=== PATIENT | female | born 1995 | race Caucasian/White ===

== ENCOUNTER → 2025-09-07 | Outpatient (CLI) | payer BC, SELFPAY ==
[2025-09-11 10:08] LABS: Pistachio Nut 11.40 kU/L (Class IV)
== END | disposition home or self-care (01) ==
PROVIDERS: PCP Clinical Nurse Specialist Adult Health
DX: T78.40XA Allergy, unspecified, initial encounter (principal)
CPT/HCPCS: 36415; 86003

== ENCOUNTER → 2025-09-18 | Outpatient (CLI) | payer BC, SELFPAY ==
--- OUTSIDE RECORDS SUMMARY | 2025-09-18 08:44 | XMS RPT_ITS | CCD ---
Author Organization [facility] Clini[facility] Care Team Providers Care Wound Care Coordinator Name Role Phone Dio SECTIONAL BELT MOLD ASSEMBLER.BOOM MASTER, Wilson Primary Care Provider [phone] WILSON WHARTON A Attending Unavailable REKHA WINSLOW Attending Unavailable ERIK BAINS Consulting Unavailable Dio SECTIONAL BELT MOLD ASSEMBLER.BRIT, Wilson Primary Care Provider [phone] Dio SECTIONAL BELT MOLD ASSEMBLER.BOOM MASTER, Wilson Primary Care Provider [phone] Roxy Mendes CGC Unavailable Unavailable Haury SECTIONAL BELT MOLD ASSEMBLER.Milind PEREA Unavailable Dio SECTIONAL BELT MOLD ASSEMBLER.BOOM MASTER, Wilson Primary Care Provider [phone] RODOLFO ASHLEY Referring Unavailable RODOLFO ASHLEY Attending Unavailable Dio SECTIONAL BELT MOLD ASSEMBLER.BRIT, Wilson Primary Care Provider [phone] DIO, WILOSN Referring Unavailable DIO, WILSON Primary Care Unavailable DIO, WILSON Primary Care Unavailable LYALL-DUC, SHELLI Attending Unavailable DIO, WILSON Primary Care Unavailable LYALL-DUC, SHELLI Attending Unavailable DIO, WILSON Primary Care Unavailable DIO, WILSON Referring Unavailable DIO, WILSON Primary Care Unavailable DIO, WILSON Attending Unavailable DIO, WILSON Primary Care Unavailable DIO, WILSON Attending Unavailable DIO, WILSON Primary Care Unavailable DIO, WILSON Attending Unavailable DIO, WILSON Primary Care Unavailable DIO, WILSON Primary Care Unavailable DIO, WILSON Attending Unavailable DIO, WILSON Primary Care Unavailable DIO, WILSON Attending Unavailable SELF Referring Unavailable TYRA CLAROS Attending Unavailable DIO, WILSON Primary Care Unavailable TRICIA GARCIA Referring Unavailable DIO, WILSON Referring Unavailable TRICIA GARCIA Attending Unavailable DIO, WILSON Primary Care Unavailable NASIM, VILMA Referring Unavailable DIO, WILSON Primary Care Unavailable NASIM, VILMA Referring Unavailable DIO, WILSON Primary Care Unavailable SOPHIE, EBONY Referring Unavailable DIO, WILSON Primary Care Unavailable RADHA TRICIA Referring Unavailable DIO, WILSON Primary Care Unavailable DIO, WILSON Referring Unavailable DIO, WILSON Primary Care Unavailable GROMOVSKY, CODIE R Referring Unavailable DIO, WILSON Primary Care Unavailable GROMOVSKY, CODIE R Referring Unavailable DIO, WILSON Primary Care Unavailable SELF Referring Unavailable DIO, WILSON Primary Care Unavailable PETR MANDUJANO Attending Unavailable IRA MAY Attending Unavailable DIO, WILSON Primary Care Unavailable NIKOLAS CARBAJAL Attending Unavailable DIO, WILSON Primary Care Unavailable NASIM, VILMA Attending Unavailable DIO, WILSON Primary Care Unavailable SOPHIE, EBONY Referring Unavailable DIO, WILSON Primary Care Unavailable NASIM, VILMA Referring Unavailable DIO, WILSON Primary Care Unavailable BECHTERKAYA Attending Unavailable DIO, WILSON Primary Care Unavailable SOPHIE, EBONY Attending Unavailable DIO, WILSON Primary Care Unavailable GROMOVSKY, CODIE Referring Unavailable DIO, WILSON Primary Care Unavailable DOWNING, ALLISON Attending Unavailable DIO, WILSON Primary Care Unavailable NASIM, VILMA Attending Unavailable DIO, WILSON Primary Care Unavailable DOWNING, ALLISON Attending Unavailable DIO, WILSON Primary Care Unavailable DIO, WILSON Primary Care Unavailable SOPHIE, EBONY Attending Unavailable DIO, WILSON Primary Care Unavailable BECHTERKAYA Attending Unavailable DIO, WILSON Primary Care Unavailable NASIM, VILMA Attending Unavailable DIO, WILSON Primary Care Unavailable SOPHIE, EBONY Admitting Unavailable SOPHIE, EBONY Attending Unavailable SOPHIE, EBONY Referring Unavailable DIO, WILSON Primary Care Unavailable SOPHIE, EBONY Consulting Unavailable CHRISTINA BRAMBILA Attending Unavailable DIO, WILSON Referring Unavailable DIO, WILSON Primary Care Unavailable SOPHIE, EBONY Attending Unavailable DIO, WILSON Primary Care Unavailable BECHTER, KAYA Attending Unavailable DIO, WILSON Primary Care Unavailable NASIM, VILMA Attending Unavailable DIO, WILSON Primary Care Unavailable Allergies Allergy Classification Reported Allergen(s) Allergy Type Date of Onset Reaction(s) Facility (20 sources) Lisinopril; Translations: [LISINOPRIL] Drug Allergy 01-20-2022 Intolerance [facility] Work Phone: (20 sources) Adhesive Tape; Translations: [ADHESIVE TAPE (ROSINS)] Allergy to substance 08-14-2024 Rash [facility] Medications Current Medications Medication Drug Class(es) Dates Sig (Normalized) Sig (Original) acetaminophen 500 mg oral tablet (1 source) Start: 06-05-2025 End: 06-12-2025 take 40-44.9 tablets by mouth every six hours acetaminophen (TYLENOL) 500 mg tablet Indications: Class 3 severe obesity with serious comorbidity and body mass index (BMI) of 40.0 to 44.9 in adult, unspecified obesity type (HCC) Take 2 tablets by mouth every 6 hours for 7 days. TO START AFTER SURGERY 56 tablet 06/05/2025 06/12/2025 Active 24 hr desvenlafaxine succinate 25 mg extended release oral tablet (20 sources) Serotonin and Norepinephrine Reuptake Inhibitor Start: 03-26-2025 End: 04-25-2025 take 1 tablet by mouth once daily desvenlafaxine ER (PRISTIQ) 25 mg 24 hr tablet Take 1 tablet by mouth once daily. Combine with Lexapro x 30 days then D.C 30 tablet 03/26/2025 Active Start: 03-14-2024 End: 03-26-2025 take 1 tablet by mouth once daily desvenlafaxine ER (PRISTIQ) 100 mg 24 hr tablet Indications: ROBERT (generalized anxiety disorder) , Moderate episode of recurrent major depressive disorder (HCC) Take 1 tablet by mouth once daily. 90 tablet 1 09/08/2024 03/26/2025 Discontinued Start: 02-19-2024 End: 03-14-2024 take 1 tablet by mouth once daily desvenlafaxine ER (PRISTIQ) 50 mg 24 hr tablet Indications: ROBERT (generalized anxiety disorder) , Moderate episode of recurrent major depressive disorder (HCC) Take 1 tablet by mouth once daily. 30 tablet 2 02/19/2024 03/14/2024 Discontinued Start: 10-23-2023 End: 02-15-2024 take 1 tablet by mouth once daily desvenlafaxine ER (PRISTIQ) 50 mg 24 hr tablet Indications: ROBERT (generalized anxiety disorder) , Moderate episode of recurrent major depressive disorder (HCC) Take 1 tablet by mouth once daily. 30 tablet 2 10/23/2023 02/15/2024 Discontinued Start: 11-20-2022 End: 01-22-2023 take 1 tablet by mouth once daily desvenlafaxine ER (PRISTIQ) 100 mg 24 hr tablet Indications: ROBERT (generalized anxiety disorder) , Moderate episode of recurrent major depressive disorder (HCC) Take 1 tablet by mouth once daily. 90 tablet 2 01/22/2023 Active Comment on above: Take 1 tablet by rene th once daily. escitalopram 20 mg oral tablet (9 sources) Serotonin Reuptake Inhibitor Start: End: take 1 tablet by mouth once daily escitalopram oxalate (LEXAPRO) 20 mg tablet Take 1 tablet by mouth once daily. 90 tablet 03/26/2025 06/24/2025 Active famotidine 40 mg oral tablet (20 sources) Histamine-2 Receptor Antagonist Start: take 1 tablet by mouth once daily famotidine (PEPCID) 40 mg tablet Indications: Chronic gastritis without bleeding, unspecified gastritis type Take 1 tablet by mouth once daily. 90 tablet 2 11/28/2024 Active iv contrast (will be provided with radiology test) (1 source) Start: End: inject 1 dose intravenously once iv contrast (will be provided with radiology test) Indications: Dizzy , Other fatigue , Seizure disorder (HCC) , Migraine without aura, not intractable, with status migrainosus MRI Brain Inject, intravenously, once for 1 dose.No IV access, insert saline lock prior to beginning of sedation, infusion, injection of imaging exam.Discontinue saline lock post exam. If Pt. has a central line or IVAD, may access for administration according to line specific nursing protocol.Once exam is complete flush line and de-access according to line specific nursing protocol in the MR contrast administration guidelines link 1 Each 07/11/2024 07/12/2024 Active lisinopril 5 mg oral tablet (4 sources) Angiotensin Converting Enzyme Inhibitor Start: End: take 1 tablet by mouth once daily lisinopril (ZESTRIL, PRINIVIL) 5 mg tablet Indications: Hypertension, essential Take 1 tablet by mouth once daily. 30 tablet 1 01/12/2022 01/20/2022 Discontinued Comment on above: Take 1 tablet by rene th once daily. losartan potassium 25 mg oral tablet (20 sources) Angiotensin 2 Receptor Ravi Start: End: take 1 tablet by mouth once daily losartan (COZAAR) 25 mg tablet Indications: Hypertension, essential Take 1 tablet by mouth once daily. 90 tablet 1 06/16/2024 11/28/2024 Discontinued Start: 07-26-2022 End: 11-05-2023 take 1 tablet by mouth once daily losartan (COZAAR) 25 mg tablet Indications: Hypertension, essential Take 1 tablet by mouth once daily. 90 tablet 2 01/22/2023 11/05/2023 Discontinued (Discontinued by Patient) Start: 02-21-2022 End: 06-16-2022 take 1 tablet by mouth once daily losartan (COZAAR) 25 mg tablet Indications: Hypertension, essential Take 1 tablet by mouth once daily. 30 tablet 1 05/17/2022 Active Start: 01-20-2022 End: 02-19-2022 take 1 tablet by mouth once daily losartan (COZAAR) 25 mg tablet Indications: Hypertension, essential Take 1 tablet by mouth once daily. 30 tablet 0 01/20/2022 02/19/2022 Active Comment on above: Take 1 tablet by rene th once daily. metFORMIN hydrochloride 500 mg oral tablet (20 sources) Biguanide Start: End: take 1 tablet by mouth twice daily at mealtime metFORMIN (GLUCOPHAGE) 500 mg tablet Indications: Hypertension, essential , IFG (impaired fasting glucose) Take 1 tablet by mouth two times a day with meals. 60 tablet 2 03/04/2025 Active modafinil 200 mg oral tablet (20 sources) Sympathomimetic-li ke Agent Start: End: take 1 tablet by mouth once daily modafinil (PROVIGIL) 200 mg tablet Indications: Excessive daytime sleepiness , Sleep-disordered breathing Take 1 tablet by mouth once daily for 180 days. 30 tablet 5 02/27/2025 08/26/2025 Active Start: 01-30-2023 take 1 tablet by rene th once daily modafinil (PROVIGIL) 200 mg tablet Indications: Excessive daytime sleepiness , Narcolepsy without cataplexy Take 1 tablet by mouth once daily for 30 days. 30 tablet 0 01/30/2023 Active Start: 01-23-2023 End: 02-22-2023 take 1 tablet by mouth once daily modafinil (PROVIGIL) 100 mg tablet Indications: Excessive daytime sleepiness , Narcolepsy without cataplexy Take 1 tablet by mouth once daily for 30 days. 30 tablet 0 01/23/2023 02/22/2023 Active Comment on above: Take 1 tablet by [facility] once daily for 30 days. ondansetron 4 mg oral tablet (1 source) Serotonin-3 Receptor Antagonist Start: take 1 tablet by mouth every eight hours as needed for nausea ondansetron (ZOFRAN) 4 mg tablet Indications: Class 3 severe obesity with serious comorbidity and body mass index (BMI) of 40.0 to 44.9 in adult, unspecified obesity type (HCC) Take 1 tablet by mouth every 8 hours as needed for nausea/vomiting for up to 15 doses. TO START AFTER SURGERY. 15 tablet 06/05/2025 Active pantoprazole 40 mg delayed release oral tablet (1 source) Proton Pump Inhibitor Start: End: take 40-44.9 tablets by mouth once daily pantoprazole DR (PROTONIX) 40 mg tablet Indications: Class 3 severe obesity with serious comorbidity and body mass index (BMI) of 40.0 to 44.9 in adult, unspecified obesity type (HCC) Take 1 tablet by mouth once daily. TO START AFTER SURGERY. Take every day for 6 months after surgery. 180 tablet 06/05/2025 12/02/2025 Active predniSONE 20 mg oral tablet (19 sources) Start: predniSONE (DELTASONE) 20 mg tablet Indications: Hives Take three tablets daily for three days, then two tablets daily for three days, then one tablets daily for three days. 18 tablet 03/20/2025 Active Start: 02-13-2022 End: 07-07-2022 predniSONE (DELTASONE) 20 mg tablet Indications: Contact dermatitis due to adhesives, unspecified contact dermatitis type 1 tablet three times a day for 3 days, then 2 times a day for 3 days, the one daily for 3 days. Take with food. 18 tablet 0 02/13/2022 07/07/2022 Discontinued Comment on above: 1 tablet three times a day for 3 days, then 2 times a day for 3 days, the one daily for 3 days. Take with food. 24 hr propranolol hydrochloride 160 mg extended release oral capsule (20 sources) beta-Adrenergic Ravi Start: take 1 capsule by mouth once daily propranolol ER (INDERAL LA) 160 mg Cs24 Indications: Hypertension, essential , ROBERT (generalized anxiety disorder) Take 1 capsule by mouth once daily. 90 capsule 2 11/28/2024 Active Start: 12-03-2023 End: 11-28-2024 take 1 capsule by mouth once daily propranolol ER (INDERAL LA) 80 mg 24 hr capsule Indications: Hypertension, essential , ROBERT (generalized anxiety disorder) Take 1 capsule by mouth once daily. 90 capsule 2 06/16/2024 11/28/2024 Discontinued Start: 07-07-2022 End: 11-05-2023 take 1 capsule by mouth once daily propranolol ER (INDERAL LA) 80 mg 24 hr capsule Indications: Hypertension, essential , ROBERT (generalized anxiety disorder) Take 1 capsule by mouth once daily. 90 capsule 2 01/22/2023 11/05/2023 Discontinued (Discontinued by Patient) Comment on above: Take 1 capsule by mo [facility] once daily. solriamfetol 75 mg oral tablet (3 sources) Start: 3 End: 3 take 1 tablet by mouth once daily in the morning solriamfetoL 75 mg tablet (SUNOSI) Indications: Other fatigue , Excessive daytime sleepiness Take 1 tablet by mouth every morning for 60 days. 30 tablet 1 01/22/2023 01/23/2023 Discontinued Comment on above: Take 1 tablet by rene every morning for 60 days. ursodiol 300 mg oral capsule (1 source) Bile Acid Start: 5 End: 6 take 40-44.9 capsules by mouth twice daily ursodiol (ACTIGALL) 300 mg capsule Indications: Class 3 severe obesity with serious comorbidity and body mass index (BMI) of 40.0 to 44.9 in adult, unspecified obesity type (HCC) Take 1 capsule by mouth two times a day. TO START AFTER SURGERY. 360 capsule 06/05/2025 12/02/2025 Active Completed/Discontinued Medications Medication Drug Class(es) Dates Sig (Normalized) Sig (Original) amitriptyline hydrochloride 50 mg oral tablet (19 sources) Tricyclic Antidepressant Start: 2 End: 3 take 1 tablet by mouth once daily at bedtime amitriptyline (ELAVIL) 50 mg tablet Take 1 tablet by mouth daily at bedtime. 30 tablet 11 12/19/2021 10/17/2022 Discontinued Comment on above: Take 1 tablet by rene th daily at bedtime. amLODIPine 10 mg oral tablet (20 sources) Dihydropyridine Calcium Channel Ravi Start: 2 End: 3 take 1 tablet by mouth once daily amLODIPine (NORVASC) 10 mg tablet Indications: Hypertension, essential Take 1 tablet by mouth once daily. 30 tablet 0 07/25/2022 01/22/2023 Discontinued Comment on above: Take 1 tablet by rene th once daily. TAKE ONE TABLET BY M OUT EVERY DAY ascorbic acid 500 mg oral tablet (13 sources) Vitamin C Start: 3 End: 4 take 1 tablet by mouth once daily ascorbic acid, vitamin C, (VITAMIN C) 500 mg tablet Indications: Other fatigue Take 1 tablet by mouth once daily. To be taken with iron to help absorption 90 tablet 1 10/20/2022 11/05/2023 Discontinued (Course of therapy completed) Comment on above: Take 1 tablet by rene th once daily. To be taken with iron to help absorption Benzocaine (1 source) Standardized Chemical Allergen Start: 5 End: 1 Gardner, TOPICAL, DIRECTED, Starting on Sun10/28/24 at 1030, Until Sun10/28/24 at 1429, Dosing as directed for intraprocedural use only - Pharmaceutical Waste: Aerosol -, Intraprocedure 24 hr buPROPion hydrochloride 150 mg extended release oral tablet (10 sources) Aminoketone Start: 3 End: 3 take 1 tablet by mouth once daily buPROPion XL (WELLBUTRIN XL) 150 mg 24 hr tablet Indications: Moderate episode of recurrent major depressive disorder (HCC) Take 1 tablet by mouth once daily. 90 tablet 2 01/22/2023 Active Comment on above: Take 1 tablet by rene th once daily. calcium chloride 0.0014 meq/ml / potassium chloride 0.004 meq/ml / sodium chloride 0.103 meq/ml / sodium lactate 0.028 meq/ml injectable solution (1 source) Start: 5 End: 5 take 30 mL intravenously every hour 30 mL/hr, INTRAVENOUS, CONTINUOUS, Starting on Sun10/28/24 at 0930, Until 10/28/24 at 1045, Preprocedure cholecalciferol 0.05 mg oral capsule (13 sources) Vitamin D Start: 3 End: 4 take 1 capsule by mouth once daily Cholecalciferol, Vitamin D3, 50 mcg (2,000 unit) cap Indications: Other fatigue , Vitamin D deficiency Take 1 capsule by mouth once daily. 90 capsule 1 10/20/2022 11/05/2023 Discontinued (Discontinued by Patient) Comment on above: Take 1 capsule by mo [facility] once daily. diphenhydrAMINE (1 source) Histamine-1 Receptor Antagonist Start: 5 End: 5 12.5-50 mg, INTRAVENOUS, DIRECTED, Starting on Sun10/28/24 at 1030, Until 10/28/24 at 1429, DOSING DIRECTED BY PHYSICIAN FOR PROCEDURAL SEDATION ONLY, Intraprocedure 1 ml fentaNYL 0.05 mg/ml injection (1 source) Opioid Agonist Start: 5 End: 5 25-100 mcg, INTRAVENOUS, DIRECTED, Starting on Sun10/28/24 at 1030, Until 10/28/24 at 1429, DOSING DIRECTED BY PHYSICIAN FOR PROCEDURAL SEDATION ONLY, Intraprocedure lamoTRIgine 200 mg oral tablet (20 sources) Mood Stabilizer, Anti-epileptic Agent Start: 2 End: 3 take 1 tablet by mouth once daily lamoTRIgine (LAMICTAL) 200 mg tablet Indications: ROBERT (generalized anxiety disorder) , Seizure disorder (HCC) Take 1 tablet by mouth once daily. 0 07/07/2022 10/17/2022 Discontinued Start: 12-19-2021 End: 07-07-2022 take 1 tablet by mouth twice daily lamoTRIgine (LAMICTAL) 200 mg tablet Take 1 tablet by mouth twice daily. 60 tablet 11 12/19/2021 07/07/2022 Discontinued (Adjust Sig - Block E-Cancel) Comment on above: Take 1 tablet by rene th twice daily. Take 1 tablet by rene once daily. 24 hr metoprolol succinate 25 mg extended release oral tablet (2 sources) beta-Adrenergic Ravi Start: 05-25-20 End: 07-07-20 take 1 tablet by mouth once daily metoprolol succinate ER (TOPROL XL) 25 mg 24 hr tablet Indications: Racing heart beat Take 1 tablet by mouth once daily. 30 tablet 0 05/25/2022 07/07/2022 Discontinued Comment on above: Take 1 tablet by [facility] once daily. 5 ml midazolam 1 mg/ml injection (1 source) Benzodiazepine Start: 10-28-19 End: 10-28-19 1-5 mg, INTRAVENOUS, DIRECTED, Starting on Sun10/28/24 at 1030, Until Sun10/28/24 at 1429, DOSING DIRECTED BY PHYSICIAN FOR PROCEDURAL SEDATION ONLY, Intraprocedure perflutren lipid microspheres 1.3 mL in NaCl (PF) 0.9% 10 mL injection (DEFINITY) (7 sources) Start: 02-18-20 End: 07-07-20 perflutren lipid microspheres 1.3 mL in NaCl (PF) 0.9% 10 mL injection (DEFINITY) Start: 02-17-2022 End: 05-19-2023 perflutren lipid microsphere s 1.3 mL in NaCl (PF) 0.9% 10 mL injection (DEFINITY) phentermine hydrochloride 37.5 mg oral tablet (8 sources) Sympathomimetic Amine Anorectic Start: 05-30-2024 End: 08-10-2024 take 40-44.9 tablets by mouth once daily Phentermine HCl (ADIPEX-P) 37.5 mg tablet Indications: Class 3 severe obesity with serious comorbidity and body mass index (BMI) of 40.0 to 44.9 in adult, unspecified obesity type (HCC) Take 1 tablet by mouth once daily for 30 days. 30 tablet 07/11/2024 08/01/2024 Discontinued polysaccharide iron complex 150 mg oral capsule (14 sources) Start: 10-20-2022 End: 11-05-2023 take 1 capsule by mouth once daily iron polysaccharide complex (NU-IRON) 150 mg iron capsule Indications: Other fatigue Take 1 capsule by mouth once daily. 90 capsule 1 01/22/2023 11/05/2023 Discontinued (Discontinued by Patient) Comment on above: Take 1 capsule by mo [facility] once daily. sertraline 100 mg oral tablet (20 sources) Serotonin Reuptake Inhibitor Start: 05-22-2022 End: 11-20-2022 take 1 tablet by mouth once daily sertraline (ZOLOFT) 100 mg tablet Indications: ROBERT (generalized anxiety disorder) Take 1 tablet by mouth once daily. 30 tablet 5 07/07/2022 11/20/2022 Discontinued Start: 12-07-2021 End: 03-19-2022 take 1 tablet by mouth once daily sertraline (ZOLOFT) 100 mg tablet Indications: ROBERT (generalized anxiety disorder) Take 1 tablet by mouth once daily. 30 tablet 1 03/20/2022 Active Comment on above: Take 1 tablet by rene th once daily. TAKE ONE TABLET BY M OUTH EVERY DAY 125 ml sodium chloride 9 mg/ml prefilled syringe (7 sources) Start: 02-18-20 End: 05-19-20 sodium chloride 0.9 % (flush) 10 mL (BD POSIFLUSH) tamsulosin hydrochloride 0.4 mg oral capsule (2 sources) alpha-Adrenergic Ravi Start: 11-07-19 End: 12-11-19 24 take 1 capsule by mouth once daily at bedtime tamsulosin (FLOMAX) 0.4 mg Indications: Pelvic pain , Kidney stone Take 1 capsule by mouth daily at bedtime for 14 days. 14 capsule 0 11/07/2023 12/11/2023 Discontinued Comment on above: Take 1 capsule by mo njh daily at bedtime for 14 days. 1 ml triamcinolone acetonide 40 mg/ml injection (2 sources) Corticosteroid Start: 03-14-20 End: 03-14-20 24 triamcinolone acetonide 40 mg injection (KeNALog 40) Problems Active Problems Problem Classification Problem Date Documented Da te Episodic/Chronic Abdominal pain (15 sources) Pain in pelvis; Translations: [Pelvic and perineal pain] Onset: 4 10-30-2023 Episodic Administrative/social admission (1 source) Dietary counseling and surveillance; Translations: [Dietary counseling and surveillance] Onset: 5 Episodic Anxiety disorders (20 sources) Generalized anxiety disorder; Translations: [Generalized anxiety disorder] Onset: 2 11-18-2021 Chronic Benign neoplasm of uterus (2 sources) Uterine leiomyoma; Translations: [Leiomyoma of uterus, unspecified] 10-30-2023 Episodic Calculus of urinary tract (3 sources) History of calculus of kidney; Translations: [Personal history of urinary calculi] 11-05-2023 Episodic Coma; stupor; and brain damage (2 sources) Daytime somnolence 01-22-2025 Episodic Diabetes mellitus without complication (14 sources) Impaired fasting glycemia; Translations: [Impaired fasting glucose] Onset: 5 02-04-2024 Episodic Epilepsy; convulsions (20 sources) Seizure disorder; Translations: [Epilepsy, unspecified, not intractable, without status epilepticus] Onset: 1 01-04-2021 Chronic Epilepsy; convulsions (20 sources) Generalized seizure; Translations: [Unspecified convulsions] Onset: 1 03-03-2021 Episodic Esophageal disorders (4 sources) Gastroesophageal reflux disease; Translations: [Gastro-esophageal reflux disease without esophagitis] Onset: 5 01-08-2025 Chronic Esophageal disorders (1 source) Esophageal disorders; Translations: [Gastroesophageal reflux disease with esophagitis, unspecified whether hemorrhage] Onset: 5 Essential hypertension (20 sources) Essential hypertension; Translations: [Essential (primary) hypertension] Onset: 2 11-18-2021 Chronic Fluid and electrolyte disorders (1 source) Dehydration; Translations: [Dehydration] Onset: 5 Episodic Gastritis and duodenitis (1 source) Chronic gastritis; Translations: [Unspecified chronic gastritis without bleeding] 11-28-2024 Chronic Genitourinary symptoms and ill-defined conditions (3 sources) Microscopic hematuria; Translations: [Other microscopic hematuria] 12-11-2023 Episodic Headache; including migraine (20 sources) Migraine without aura, not refractory ; Translations: [Migraine without aura, not intractable, with status migrainosus] Onset: 1 01-04-2021 Chronic Miscellaneous mental health disorders (2 sources) Eating disorder; Translations: [Eating disorder, unspecified] 01-21-2025 Chronic Mood disorders (14 sources) Recurrent major depressive episodes, moderate ; Translations: [Major depressive disorder, recurrent, moderate] Onset: 5 Chronic Mood disorders (1 source) Mood disorders; Translations: [Anxiety and depression] Onset: 5 Nutritional deficiencies (5 sources) Vitamin D deficiency; Translations: [Vitamin D deficiency, unspecified] Onset: 5 Chronic Other aftercare (4 sources) Patient encounter status; Translations: [Encounter for therapeutic drug level monitoring] Episodic Other congenital anomalies (20 sources) Longitudinal deficiency of lower limb; 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] Onset: 1 01-04-2021 Chronic Other disorders of stomach and duodenum (2 sources) Indigestion; Translations: [Functional dyspepsia] 10-14-2024 Episodic Other female genital disorders (1 source) Abnormal uterine bleeding; Translations: [Abnormal uterine and vaginal bleeding, unspecified] 11-05-2023 Chronic Other gastrointestinal disorders (2 sources) Abdominal bloating; Translations: [Abdominal distension (gaseous)] 10-14-2024 Episodic Other gastrointestinal disorders (1 source) Diarrhea; Translations: [Diarrhea, unspecified] 10-14-2024 Episodic Other gastrointestinal disorders (1 source) Bariatric surgery status; Translations: [S/P gastric bypass] Onset: 5 Episodic Other liver diseases (6 sources) Non-alcoholic fatty liver disease without non-alcoholic steatohepatitis; Translations: [Fatty (change of) liver, not elsewhere classified] 02-04-2024 Chronic Other liver diseases (6 sources) Fatty (change of) liver, not elsewhere classified; Translations: [Other chronic nonalcoholic liver disease] Onset: 5 12-17-2024 Chronic Other lower respiratory disease (1 source) Snoring; Translations: [Snoring] Episodic Other nervous system disorders (1 source) Narcolepsy without cataplexy ; Translations: [Narcolepsy without cataplexy] Chronic Other nutritional; endocrine; and metabolic disorders (20 sources) Body mass index 40+ - severely obese; Translations: [Morbid (severe) obesity due to excess calories] Onset: 1 01-03-2021 Chronic Other nutritional; endocrine; and metabolic disorders (15 sources) Severe obesity; Translations: [Morbid (severe) obesity due to excess calories] 02-04-2024 Chronic Other nutritional; endocrine; and metabolic disorders (3 sources) Body mass index (BMI) 40.0-44.9, adult; Translations: [Class 3 severe obesity with serious comorbidity and body mass index (BMI) of 40.0 to 44.9 in adult, unspecified obesity type] Onset: 5 Chronic Other nutritional; endocrine; and metabolic disorders (2 sources) Morbid (severe) obesity due to excess calories; Translations: [Class 3 severe obesity with serious comorbidity and body mass index (BMI) of 40.0 to 44.9 in adult, unspecified obesity type (HCC)] Onset: 5 Chronic Residual codes; unclassified (1 source) Obstructive sleep apnea syndrome; Translations: [Obstructive sleep apnea (adult) (pediatric)] Chronic Residual codes; unclassified (20 sources) Daytime somnolence; Translations: [Other hypersomnia] Onset: 5 Chronic Residual codes; unclassified (20 sources) Finding related to sleep; Translations: [Sleep apnea, unspecified] Onset: 5 01-22-2025 Chronic Residual codes; unclassified (2 sources) Other hypersomnia; Translations: [Excessive daytime sleepiness] Onset: 5 Chronic Residual codes; unclassified (2 sources) Sleep apnea, unspecified; Translations: [Sleep-disordered breathing] Onset: 5 Chronic Residual codes; unclassified (1 source) Family history of gene mutation; Translations: [Family history of carrier of genetic disease] 10-30-2023 Episodic Unclassified (2 sources) Finding related to sleep 01-22-2025 Unclassified (2 sources) Obesity, Class III, BMI 40-49.9 (morbid obesity) ([facility]); Translations: [Obesity, Class III, BMI 40-49.9 (morbid obesity) ([facility])] Onset: 1 Unclassified (2 sources) Autogenerated Problem Onset: 5 05-24-2025 Unclassified (1 source) Obesity, Class III, BMI 40-49.9 (morbid obesity); Translations: [Obesity, Class III, BMI 40-49.9 (morbid obesity)] Onset: 1 Unclassified (1 source) Class 3 severe obesity with serious comorbidity and body mass index (BMI) of 40.0 to 44.9 in adult, unspecified obesity type; Translations: [Class 3 severe obesity with serious comorbidity and body mass index (BMI) of 40.0 to 44.9 in adult, unspecified obesity type] Onset: 5 Unclassified (2 sources) Class 3 severe obesity with serious comorbidity and body mass index (BMI) of 40.0 to 44.9 in adult, unspecified obesity type (HCC); Translations: [Class 3 severe obesity with serious comorbidity and body mass index (BMI) of 40.0 to 44.9 in adult, unspecified obesity type (HCC)] Onset: 5 Past or Other Problems Problem Classification Problem Date Documented Da te Episodic/Chronic Abdominal hernia (3 sources) Hiatal hernia; Translations: [Diaphragmatic hernia without obstruction or gangrene] Onset: 04-16-2025 04-16-2025 Episodic Allergic reactions (5 sources) Contact dermatitis caused by chemical; Translations: [Allergic contact dermatitis due to adhesives] Onset: 03-20-2025 Episodic Cardiac dysrhythmias (20 sources) Tachycardia; Translations: [Tachycardia, unspecified] Onset: 01-18-2022 01-18-2022 Episodic Conditions associated with dizziness or vertigo (4 sources) Dizziness; Translations: [Dizziness and giddiness] Onset: 08-11-2024 02-04-2024 Episodic E Codes: Natural/environment (2 sources) Tick bite; Translations: [Bitten or stung by nonvenomous insect and other nonvenomous arthropods, initial encounter] Onset: 03-20-2025 03-20-2025 Episodic Headache; including migraine (20 sources) Medication overuse headache; Translations: [Drug-induced headache, not elsewhere classified, not intractable] Onset: 03-03-2021 03-03-2021 Episodic Lymphadenitis (20 sources) Lymphadenopathy; Translations: [Enlarged lymph nodes, unspecified] Onset: 11-18-2021 11-18-2021 Episodic Malaise and fatigue (6 sources) Fatigue; Translations: [Other fatigue] Onset: 08-11-2024 Episodic Other circulatory disease (20 sources) Elevated blood-pressure reading without diagnosis of hypertension; Translations: [Elevated blood-pressure reading, without diagnosis of hypertension] Onset: 01-04-2021 Resolved: 12-05-2021 12-05-2021 Episodic Other disorders of stomach and duodenum (2 sources) Functional dyspepsia; Translations: [Indigestion] Onset: 10-16-2024 Episodic Other gastrointestinal disorders (2 sources) Abdominal distension (gaseous); Translations: [Bloating] Onset: 10-16-2024 Episodic Other gastrointestinal disorders (1 source) Diarrhea, unspecified; Translations: [Intermittent diarrhea] Onset: 10-16-2024 Episodic Other lower respiratory disease (20 sources) Difficulty breathing; Translations: [Other abnormalities of breathing] Onset: 01-18-2022 Resolved: 07-07-2022 01-18-2022 Episodic Other nervous system disorders (20 sources) Tremor; Translations: [Tremor, unspecified] Onset: 01-18-2022 Resolved: 07-07-2022 01-18-2022 Episodic Other screening for suspected conditions (not mental disorders or infectious disease) (20 sources) General problem AND/OR complaint; Translations: [Encounter for screening for other musculoskeletal disorder] Onset: 01-04-2021 01-04-2021 Episodic Other skin disorders (20 sources) Hidradenitis suppurativa; Translations: [Hidradenitis suppurativa] Onset: 11-18-2021 11-18-2021 Episodic Other skin disorders (20 sources) Acne vulgaris; Translations: [Acne vulgaris] Onset: 11-18-2021 11-18-2021 Episodic Unclassified (1 source) INDIGO Onset: 11-15-2022 Results Test Name Value Interpretation Reference Range Facility 25(OH)D3 [facility] 2024 25-hydroxyvitamin D3 [Mass/Vol] 44.7 ng/mL Normal >=30.0 [facility] Comment on above: Order Comment: Speci men Type: BLOOD SPECIMENOrdering Facility: [facility] Address: [address] [place] [address] Result Comment: Clas sification of 25 [place] Vitamin D status: Deficiency: <= 20.0 ng/ml. Insufficiency: 21.0-29.0 ng/ml. Sufficiency: >= 30.0 ng/ml. Performed By: #### 1 989-3 ####[facility]ATORYCLIA [id number] [place] [address] [place] Basic metabolic 2000 panelon 08-03-2025 Anion gap [Moles/Vol] 15 mmol/L Normal 8-15 [facility] Comment on above: Order Comment: Speci men Type: BLOOD SPECIMENOrdering Facility: [facility] Address: [address] [place] [address] Performed By: #### 2 276-4, 80634-0, 86145-0 ####[facility]ATORYCLIA [id number] [place] [address] [place] Calcium [Mass/Vol] 9.5 mg/dL Normal 8.5-10.2 [facility] Comment on above: Order Comment: Speci men Type: BLOOD SPECIMENOrdering Facility: [facility] Address: [address] [place] [address] Performed By: #### 2 276-4, 15457-1, 29169-1 ####[facility] LABORATORYCLIA [id number] [place] [address] [place] Chloride [Moles/Vol] 102 mmol/L Normal 98-107 [facility] Comment on above: Order Comment: Speci men Type: BLOOD SPECIMENOrdering Facility: [facility] Address: [address] [place] [address] Performed By: #### 2 276-4, 40239-9, 53188-3 ####[facility]ATORYCLIA [id number] [place] [address] [place] CO2 [Moles/Vol] 23 mmol/L Normal 22-30 [facility] Comment on above: Order Comment: Speci men Type: BLOOD SPECIMENOrdering Facility: [facility] Address: [address] [place] [address] Performed By: #### 2 276-4, 90527-3, 31399-6 ####[facility] LABORATORYCLIA [id number] [place] [address] [place] Creatinine [Mass/Vol] 0.66 mg/dL Normal 0.58-0.96 [facility] Comment on above: Order Comment: Speci men Type: BLOOD SPECIMENOrdering Facility: [facility] Address: [address] [place] [address] Performed By: #### 2 276-4, 93804-3, 42436-6 ####[facility] SERVICESIA [id number] [address] [place] eGFRcr SerPlBld CKD-EPI 2020 121 mL/min/1.73m??? Normal >=60 [facility] Comment on above: Order Comment: Radha wilson Type: BLOOD SPECIMENOrdering Facility: [facility] Address: [address] [place] [address] Result Comment: Kath mated Glomerular Filtration Rate (eGFR) is calculated using the 2020 CKD-EPI creatinine equation. This equation utilizes serum creatinine, sex, and age as parameters. The creatinine assay has traceable calibration to isotope dilution-mass spectrometry. Refer to KDIGO guidelines for clinical interpretation. In patients with unstable renal function, e.g. those with acute kidney injury, the eGFR may not accurately reflect actual GFR. Performed By: #### 2 276-4, 11593-8, 51004-2 ####[facility] SERVICESIA [id number] [address] [place] Glucose [Mass/Vol] 85 mg/dL Normal 74-99 [facility] Comment on above: Order Comment: Radha wilson Type: BLOOD SPECIMENOrdering Facility: [facility] Address: [address] [place] [address] Result Comment: The [place] Diabetes Association (ADA) provides guidance for cutoff values for fasting glucose and random glucose. The ADA defines fasting as no caloric intake for at least 8 hours. Fasting plasma glucose results between 100 to 125 mg/dL indicate increased risk for diabetes (prediabetes). Fasting plasma glucose results greater than or equal to 126 mg/dL meet the criteria for diagnosis of diabetes. In the absence of unequivocal hyperglycemia, results should be confirmed by repeat testing. In a patient with classic symptoms of hyperglycemia or hyperglycemic crisis, random plasma glucose results greater than or equal to 200 mg/dL meet the criteria for diagnosis of diabetes. Reference: Standards of Medical Care in Diabetes 2016, [place] Diabetes Association. Diabetes Care. 2016.39(Suppl 1). Performed By: #### 2 276-4, 27964-9, 12218-9 ####[facility] LABORATORYCLIA [id number] [place] [address] [place] Potassium [Moles/Vol] 3.8 mmol/L Normal 3.7-5.1 [facility] Comment on above: Order Comment: Speci men Type: BLOOD SPECIMENOrdering Facility: [facility] Address: [address] [place] [address] Performed By: #### 2 276-4, 98982-7, 47555-5 ####[facility] LABORATORYCLIA [id number] [place] [address] [place] Sodium [Moles/Vol] 140 mmol/L Normal 136-144 [facility] Comment on above: Order Comment: Speci men Type: BLOOD SPECIMENOrdering Facility: [facility] Address: [address] [place] [address] Performed By: #### 2 276-4, 93537-4, 60597-9 ####[facility] LABORATORYCLIA [id number] [address] [place] Urea nitrogen [Mass/Vol] 9 mg/dL Normal 7-21 [facility] Comment on above: Order Comment: Speci men Type: BLOOD SPECIMENOrdering Facility: [facility] Address: [address] [place] [address] Performed By: #### 2 276-4, 27468-0, 10565-9 ####[facility] LABORATORYCLIA [id number] [address] [place] CBC panel Auto (Bld)on 08-03 Erythrocyte distribution width (RBC) [Ratio] 12.6 % Normal 11.5-15.0 [facility] Comment on above: Order Comment: Speci men Type: BLOOD SPECIMENOrdering Facility: [facility] Address: [address] [place] [address] Performed By: #### 5 8410-2 ####[facility] LABCLIA [id number] [place] [address] [place] Hematocrit (Bld) [Volume fraction] 42.4 % Normal 36.0-46.0 [facility] Comment on above: Order Comment: Speci men Type: BLOOD SPECIMENOrdering Facility: [facility] Address: [address] [place] [address] Performed By: #### 5 8410-2 ####[facility] LABCLIA [id number] [place] [address] [place] [facility] Hemoglobin (Bld) [Mass/Vol] 13.8 g/dL Normal 11.5-15.5 [facility] Comment on above: Order Comment: Speci men Type: BLOOD SPECIMENOrdering Facility: [facility] Address: [address] [place] [address] Performed By: #### 5 8410-2 ####[facility] LABIA [id number] [place] [address] [place] MCH (RBC) [Entitic mass] 28.9 pg Normal 26.0-34.0 [facility] Comment on above: Order Comment: Speci men Type: BLOOD SPECIMENOrdering Facility: [facility] Address: [address] [place] [address] Performed By: #### 5 8410-2 ####[facility] LABIA [id number] [place] [address] [place] MCHC (RBC) [Mass/Vol] 32.5 g/dL Normal 30.5-36.0 [facility] Comment on above: Order Comment: Speci men Type: BLOOD SPECIMENOrdering Facility: [facility] Address: [address] [place] [address] Performed By: #### 5 8410-2 ####[facility] LABIA [id number] [place] [address] [place] MCV (RBC) [Entitic vol] 88.7 fL Normal 80.0-100.0 [facility] Comment on above: Order Comment: Speci men Type: BLOOD SPECIMENOrdering Facility: [facility] Address: [address] [place] [address] Performed By: #### 5 8410-2 ####[facility] LABCLIA [id number] [place] [address] [place] Platelet mean volume (Bld) [Entitic vol] 10.1 fL Normal 9.0-12.7 [facility] Comment on above: Order Comment: Speci men Type: BLOOD SPECIMENOrdering Facility: [facility] Address: [address] [place] [address] Performed By: #### 5 8410-2 ####[facility] LABCLIA [id number] [place] [address] [place] Platelets (Bld) [#/Vol] 196 10*3/uL Normal 150-400 [facility] Comment on above: Order Comment: Speci men Type: BLOOD SPECIMENOrdering Facility: [facility] Address: [address] [place] [address] Performed By: #### 5 8410-2 ####[facility] LABCLIA [id number] [place] [address] [place] RBC (Bld) [#/Vol] 4.78 10*6/uL Normal 3.90-5.20 [facility] Comment on above: Order Comment: Speci men Type: BLOOD SPECIMENOrdering Facility: [facility] Address: [address] [place] [address] Performed By: #### 5 8410-2 ####[facility] LABCLIA [id number] [place] [address] [place] WBC (Bld) [#/Vol] 6.43 10*3/uL Normal 3.70-11.00 [facility] Comment on above: Order Comment: Speci men Type: BLOOD SPECIMENOrdering Facility: [facility] Address: [address] [place] [address] Performed By: #### 5 8410-2 ####[facility] LABCLIA [id number] [place] [address] [place] Ferritin SerPl-mCncon 2024 Ferritin [Mass/Vol] 110.0 ng/mL Normal 14.7-205.1 [facility] Comment on above: Order Comment: Speci men Type: BLOOD SPECIMENOrdering Facility: [facility] Address: [address] [place] [address] Performed By: #### 2 276-4, 88679-0, 13016-7 ####[facility] LABORATORYCLIA [id number] [place] [address] [place] Folate SerPl-mCncon 08-03-20 25 Folate [Mass/Vol] 11.7 ng/mL Normal >4.7 [facility] Comment on above: Order Comment: Speci men Type: BLOOD SPECIMENOrdering Facility: [facility] Address: [address] [place] [address] Performed By: #### 2 284-8, 2132-9 ####[facility]ITALCLIA [id number] [place] [address] [place] Iron and Iron binding capaci ty panelon 08-03-2025 Iron [Mass/Vol] 41 ug/dL Normal 41-186 [facility] Comment on above: Order Comment: Speci men Type: BLOOD SPECIMENOrdering Facility: [facility] Address: [address] [place] [address] Performed By: #### 2 276-4, 15353-2, 40478-2 ####[facility]ITALCLIA [id number] [place] [address] [place] Iron binding capacity [Mass/Vol] 238 ug/dL Normal 232-386 [facility] Comment on above: Order Comment: Speci men Type: BLOOD SPECIMENOrdering Facility: [facility] Address: [address] [place] [address] Performed By: #### 2 276-4, 76509-2, 38802-5 ####[facility] LABORATORYCLIA [id number] [place] [address] [place] Iron saturation [Mass fraction] 17.2 % Normal 15.0-57.0 [facility] Comment on above: Order Comment: Radha wilson Type: BLOOD SPECIMENOrdering Facility: [facility] Address: [address] [place] [address] Performed By: #### 2 276-4, 56956-2, 58237-7 ####[facility] LABORATORYCLIA [id number] [address] [place] PTH-Intact SerPl-mCncon 07-25 Parathyrin.intact [Mass/Vol] 23 pg/mL Normal 15-65 [facility] Comment on above: Order Comment: Radha wilson Type: BLOOD SPECIMENOrdering Facility: [facility] Address: [address] [place] [address] Performed By: #### 2 731-8 ####[facility] LABORATORYCLIA [id number] [address] [place] Vit B12 SerPl-mCncon 025 Cobalamin (Vitamin B12) [Mass/Vol] 1754 pg/mL High 232-1245 [facility] Comment on above: Order Comment: Radha wilson Type: BLOOD SPECIMENOrdering Facility: [facility] Address: [address] [place] [address] Performed By: #### 2 284-8, 2132-9 ####[facility] LABORATORYCLIA [id number] [address] [place] Zinc SerPl-mCncon 08-03-2025 Zinc [Mass/Vol] 107 ug/dL Normal 60-120 [facility] Comment on above: Order Comment: Speci men Type: BLOOD SPECIMENOrdering Facility: [facility] Address: [address] [place] [address] Result Comment: This test was developed, and its performance characteristics determined by the [facility] Department of Pathology and Laboratory Medicine. It has not been cleared or approved by the FDA. The [facility] Department of Pathology and Laboratory Medicine is regulated under CLIA as qualified to perform high-complexity testing. This test is used for clinical purposes. It should not be regarded as investigational or for research. Performed By: #### 5 763-8 ####[facility] LABCLIA [id number] [place] [address] [place] US ABD RIGHT UPPER QUADRANTo n 08-01-2025 US ABD RIGHT UPPER QUADRANT * * *Final Report* * * DATE OF EXAM: Aug 01 2025 8:19AM U 1032 - US ABD RIGHT UPPER QUADRANT / PROCEDURE REASON: RUQ pain * * * * Physician Interpretation * * * * EXAMINATION: RIGHT UPPER QUADRANT ULTRASOUND CLINICAL HISTORY: Right upper quadrant pain TECHNIQUE: Sonography of the right upper quadrant was performed. Images were obtained and stored in a permanent archive. MQ: URUQ_2 COMPARISON: None. RESULT: Pancreas: Unremarkable Limited imaging Portions obscured: Pancreatic body and tail Liver: Echotexture: Normal, homogeneous. Echogenicity: Normal Surface contour: Smooth Lesions: None. Biliary: No intrahepatic biliary duct dilation. CBD: 0.5 cm at the hilum. Gallbladder: Small amount of sludge in dependent region of the bladder lumen. No cholelithiasis. Right Kidney: No hydronephrosis. Ascites: None. IMPRESSION: Small amount of gallbladder sludge. No biliary dilatation. Relief Cook: PSCB Transcribe Date/Time: Aug 01 2025 8:34A Dictated by : WENDY SNOW MD This examination was interpreted and the report reviewed and electronically signed by: WENDY SNOW MD on Aug 01 2025 8:36AM EST [id number] N [facility] CNOVon 07-01-2025 CNOV Office Visit (AGGENS4) POLY ARMANDO ([id number]) 1995 F Date Time Provider Department 07/01/25 10:30 AM EBONY BARRIOS4 During your visit today, we recorded the following information about you: Pulse Blood pressure Weight Height 72/minute 102/74 103.6 kg 1.6 m Ebony Barrios MD 07/01/2025 10:10 AM Signed BARIATRIC SURGERY CLINIC FOLLOW UP NOTE Clinic Date: 07/01/2025 Poly Armando, 30 year old [address] [place] [id number] Index Surgery Date of Surgery: 06/23/2025 Surgeon Attending: Ebony Barrios MD Surgical Procedure: Lap RYGB Pre-surgical weight: 110.7 kg (244 lb) Other Bariatric Surgeries None Time Since Surgery: 8 days Extra Procedures: None COMPLICATIONS DURING ADMISSION: None Operative Complications: No Complications Prior to Discharge: No COMPLICATIONS SINCE DISCHARGE?: NONE Estimated body mass index is 40.46 kg/m? as calculated from the following: Height as of this encounter: 160 cm (5' 3). Weight as of this encounter: 103.6 kg (228 lb 6.4 oz). Baker weight: 64 kg (141 lb 2.3 oz) Excess weight: 46.7 kg (102 lb 13.7 oz) % of excess body weight lost: 7.076 kg (15 lb 9.6 oz) (15.17% of excess weight loss) HISTORY: Fever/Chills: Denies Abdominal Pain: Denies Back Pain: Denies Increased Heart Rate: Denies Bloating / Hiccups: Denies Shortness of Breath: Denies Cough / Wheezing: Denies Calf/Thigh pain or swelling: Denies Decreased Urine Output: Denies Nausea/Vomiting: Denies Diarrhea: Denies Bowel function: daily BM Reflux/Regurgitation: denies Current Diet: per handbook Daily approximate Fluid intake: 60-70 fl oz per 24 hours Daily approximate protein intake: 32 to 48 grams per 24 hours - working on transitioning to a new protein shake Present Activity level: ADLs, walking around the block Have you attended any Support Group? No attendance Current Medications: Current Outpatient Medications Medication Sig acetaminophen (TYLENOL EXTRA STRENGTH) 500 mg tablet Take 2 tablets by mouth every 6 hours as needed for pain for up to 7 days. ursodiol (ACTIGALL) 300 mg capsule Take 1 capsule by mouth two times a day. TO START AFTER SURGERY. pantoprazole DR (PROTONIX) 40 mg tablet Take 1 tablet by mouth once daily. TO START AFTER SURGERY. Take every day for 6 months after surgery. ondansetron (ZOFRAN) 4 mg tablet Take 1 tablet by mouth every 8 hours as needed for nausea/vomiting for up to 15 doses. TO START AFTER SURGERY. desvenlafaxine ER (PRISTIQ) 25 mg 24 hr tablet Take 1 tablet by mouth once daily. Combine with Lexapro x 30 days then D.C escitalopram oxalate (LEXAPRO) 20 mg tablet Take 1 tablet by mouth once daily. propranolol ER (INDERAL LA) 160 mg Cs24 Take 1 capsule by mouth once daily. No current facility-administered medications for this visit. Discontinued Medications: There are no discontinued medications. REVIEW OF SYSTEMS: CONSTITUTIONAL: Patient denies fevers, chills, sweats and weight changes. EYES: Patient denies any visual symptoms. EARS, NOSE, AND THROAT: No difficulties with hearing. No symptoms of rhinitis or sore throat. CARDIOVASCULAR: Patient denies chest pains, palpitations, orthopnea and paroxysmal nocturnal dyspnea. RESPIRATORY: No dyspnea on exertion, no wheezing or cough. GI: No nausea, vomiting, diarrhea, constipation, abdominal pain, hematochezia or melena. : No urinary hesitancy or dribbling. No nocturia or urinary frequency. No abnormal urethral discharge. MUSCULOSKELETAL: No myalgias or arthralgias. NEUROLOGIC: No chronic headaches, no seizures. Patient denies numbness, tingling or weakness. PSYCHIATRIC: Patient denies problems with mood disturbance. No problems with anxiety. ENDOCRINE: No excessive urination or excessive thirst. DERMATOLOGIC: Patient denies any rashes or skin changes. PHYSICAL EXAM: PHYSICAL EXAMINATION:BP 102/74 Pulse 72 Ht 160 cm (5' 3) Wt 103.6 kg (228 lb 6.4 oz) LMP 06/19/2025 (Exact Date) SpO2 98% BMI 40.46 kg/m? GENERAL: No apparent distress. Pt is alert and oriented x3. VITAL SIGNS: HR, BP, Temp; Normal HEENT: Head is normocephalic and atraumatic. Extraocular muscles are intact. Nares appeared normal. Mouth is well hydrated and without lesions. Mucous membranes are moist. NECK: Supple. LUNGS: non-labored respirations, chest rise symmetrical HEART: Regular rate and rhythm ABDOMEN: Soft, nontender, and nondistended. Incisions c/d/I and healing well. EXTREMITIES: Without any cyanosis, clubbing, rash, lesions or edema. NEUROLOGIC: AANDOx3 PSYCHIATRIC: pleasant, maintains eye contact SKIN: No ulceration or induration present. IMPRESSION: Normal post-OP course ASSESSMENT/PLAN: 1. S/P gastric bypass - ICD9: V45.86, ICD10: Z98.84 (primary diagnosis) - Doing well s/p RYGB with no current issues. Encouraged her to inc (more content not included)... Normal [facility] Ibis 06-25-2025 CHRISTIAN Telephone (AGGENS4) POLY ARMANDO ([id number]) 1995 F Date Time Provider Department 06/25/25 VILMA ROUSE AGGENS4 During your visit today, we recorded the following information about you: Vilma Rouse APRN.CNP 06/25/2025 4:09 PM Signed I contacted Poly Armando for post-operative follow up s/p Gastric Bypass LVM to f/u after bariatric surgery. 1 week postop appt: 07/01 Vilma Rouse APRN.CNP Allergies As of Date: 06/25/2025 Noted Allergy Reaction LISINOPRIL 01/20/2022 5 - Intolerance TAPE (ADHESIVE TAPE (ROSINS)) 08/14/2024 2 - Rash Date Reviewed: 06/23/2025 Reviewed by: Feli Helms, RN - Fully Assessed Reason for Visit: Surgical Followup [104] Prescriptions as of 06/25/2025 - acetaminophen (TYLENOL EXTRA STRENGTH) 500 mg tablet Take 2 tablets by mouth every 6 hours as needed for pain for up to 7 days. - traMADol (ULTRAM) 50 mg tablet Take 1 tablet by mouth every 6 hours as needed for pain for up to 6 doses. - ursodiol (ACTIGALL) 300 mg capsule Take 1 capsule by mouth two times a day. TO START AFTER SURGERY. - pantoprazole DR (PROTONIX) 40 mg tablet Take 1 tablet by mouth once daily. TO START AFTER SURGERY. Take every day for 6 months after surgery. - ondansetron (ZOFRAN) 4 mg tablet Take 1 tablet by mouth every 8 hours as needed for nausea/vomiting for up to 15 doses. TO START AFTER SURGERY. - desvenlafaxine ER (PRISTIQ) 25 mg 24 hr tablet Take 1 tablet by mouth once daily. Combine with Lexapro x 30 days then D.C - escitalopram oxalate (LEXAPRO) 20 mg tablet Take 1 tablet by mouth once daily. - propranolol ER (INDERAL LA) 160 mg Cs24 Take 1 capsule by mouth once daily. 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] 01/04/2021 Scoliosis concern [Z13.828] 01/04/2021 Seizure disorder (HCC) [G40.909] 01/04/2021 Migraine without aura, not intractable, with st*01/04/2021 Elevated blood pressure reading without diagnos*01/04/2021 12/05/2021 Generalized seizures (HCC) [R56.9] 03/03/2021 Tension headaches [G44.209] 03/03/2021 Headache, rebound [G44.40] 03/03/2021 ROBERT (generalized anxiety disorder) [F41.1] 11/18/2021 Hypertension, essential [I10] 11/18/2021 Hidradenitis suppurativa [L73.2] 11/18/2021 Acne vulgaris [L70.0] 11/18/2021 Lymph node enlargement [R59.9] 11/18/2021 Breathing difficult [R06.89] 01/18/2022 07/07/2022 Shakiness [R25.1] 01/18/2022 07/07/2022 Racing heart beat [R00.0] 01/18/2022 Elevated heart rate with elevated blood pressur*01/20/2022 Excessive daytime sleepiness [G47.19] 01/22/2025 Sleep-disordered breathing [G47.30] 01/22/2025 Pre-op examination [Z01.818] 06/15/2025 GERD (gastroesophageal reflux disease) [K21.9] 06/15/2025 Pre-diabetes [R73.03] 06/15/2025 NAFLD (nonalcoholic fatty liver disease) [K76.0]06/16/2025 Obesity, morbid, BMI 40.0-49.9 (HCC) [E66.01] 06/23/2025 Encounter Status:Closed by VILMA ROUSE on 06/25/25 [facility] ANES POSTPROC EVALon 025 ANES POSTPROC EVAL HNO ID: [id number] Author: ELKE SALDAÑA MD Service: Anesthesiology Author Type: Anesthesiologist Type: Anesthesia Postprocedure Evaluation Filed: 06/24/2025 09:43 Note Text: POST ANESTHESIA EVALUATION NOTE : 1995 Procedure Summary Date: 06/23/25 Room / Location: PR OR [address] [place] [address] OR Anesthesia Start: 1149 Anesthesia Stop: 1526 Procedures: XI ROBOTIC LAPAROSCOPIC GASTRIC RESTRICTIVE SURG W/ BYPASS AND JOAN-EN-Y 150CM (Abdomen) EGD (Abdomen) Diagnosis: Class 3 severe obesity with serious comorbidity and body mass index (BMI) of 40.0 to 44.9 in adult, unspecified obesity type (HCC) NAFLD (nonalcoholic fatty liver disease) Hiatal hernia Pre-diabetes Hypertension, unspecified type Gastroesophageal reflux disease without esophagitis Anxiety and depression (Class 3 severe obesity with serious comorbidity and body mass index (BMI) of 40.0 to 44.9 in adult, unspecified obesity type (HCC) [E66.813, Z68.41]) (NAFLD (nonalcoholic fatty liver disease) [K76.0]) (Hiatal hernia [K44.9]) (Pre-diabetes [R73.03]) (Hypertension, unspecified type [I10]) (Gastroesophageal reflux disease without esophagitis [K21.9]) (Anxiety and depression [F41.9, F32.A]) Surgeons: Ebony Barrios MD Responsible Provider: Elke Saldaña MD Anesthesia Type: general ASA Status: 3 Anesthesia Type: general Airway Type: ETT Last Vitals Vitals Value Taken Time BP 110/61 06/23/25 17:00 Temp 36.4 ?C (97.5 ?F) 06/23/25 16:30 Pulse 72 06/23/25 17:38 Resp 27 06/23/25 17:38 SpO2 96 % 06/23/25 17:38 Vitals shown include unfiled device data. Post Anesthesia Patient Status Anticipated Disposition: inpatient floor planned admission. Neurological Status: aware and responsive. Pulmonary Status: breathing comfortably on supplemental oxygen Airway Control: returned to baseline unsupported. Cardiovascular Status: stable. Pain Management: clinically adequate Postoperative Hydration: acceptable. Intraoperative Events: no significant anesthesia events Post Operative Nausea/Vomiting Status: no significant post operative nausea or vomiting Recommendation: further care per PACU/ICU/floor team. Anesthesia Observations No Documentation SIGNATURE: Elke Saldaña MD PATIENT NAME: Poly Armando DATE: June 24, 2025 TIME: 9:43 AM CSN: [id number] Normal [facility] Basic metabolic 2000 panelon 06-24-2025 Anion gap [Moles/Vol] 13 mmol/L Normal 8-15 [facility] Comment on above: Order Comment: Speci men Type: BLOOD SPECIMENOrdering Facility: [facility] Address: [address] [place] [address] Performed By: #### 2 4321-2 ####[facility] LABORATORYCLIA [id number] [place] [address] [place] [facility] Calcium [Mass/Vol] 8.5 mg/dL Normal 8.5-10.2 [facility] Comment on above: Order Comment: Speci men Type: BLOOD SPECIMENOrdering Facility: [facility] Address: [address] [place] [address] Performed By: #### 2 4321-2 ####[facility] LABORATORYCLIA [id number] [place] [address] [place] Chloride [Moles/Vol] 102 mmol/L Normal 98-107 [facility] Comment on above: Order Comment: Speci men Type: BLOOD SPECIMENOrdering Facility: [facility] Address: [address] [place] [address] Performed By: #### 2 4321-2 ####[facility]ATORYCLIA [id number] [place] [address] [place] CO2 [Moles/Vol] 22 mmol/L Normal 22-30 [facility] Comment on above: Order Comment: Speci men Type: BLOOD SPECIMENOrdering Facility: [facility] Address: [address] [place] [address] Performed By: #### 2 4321-2 ####[facility] LABORATORYCLIA [id number] [address] [place] [facility] Creatinine [Mass/Vol] 0.57 mg/dL Low 0.58-0.96 [facility] Comment on above: Order Comment: Speci men Type: BLOOD SPECIMENOrdering Facility: [facility] Address: [address] [place] [address] Performed By: #### 2 4321-2 ####[facility]ITALCLIA [id number] [address] [facility] eGFRcr SerPlBld CKD-EPI 2020 126 mL/min/1.73m??? Normal >=60 [facility] Comment on above: Order Comment: Speci men Type: BLOOD SPECIMENOrdering Facility: [facility] Address: [address] [place] [address] Result Comment: Kath mated Glomerular Filtration Rate (eGFR) is calculated using the 2020 CKD-EPI creatinine equation. This equation utilizes serum creatinine, sex, and age as parameters. The creatinine assay has traceable calibration to isotope dilution-mass spectrometry. Refer to KDIGO guidelines for clinical interpretation. In patients with unstable renal function, e.g. those with acute kidney injury, the eGFR may not accurately reflect actual GFR. Performed By: #### 2 4321-2 ####[facility]ORATORYCLIA [id number] [address] [place] Glucose [Mass/Vol] 143 mg/dL High 74-99 [facility] Comment on above: Order Comment: Radha wilson Type: BLOOD SPECIMENOrdering Facility: [facility] Address: [address] [place] [address] Result Comment: The [place] Diabetes Association (ADA) provides guidance for cutoff values for fasting glucose and random glucose. The ADA defines fasting as no caloric intake for at least 8 hours. Fasting plasma glucose results between 100 to 125 mg/dL indicate increased risk for diabetes (prediabetes). Fasting plasma glucose results greater than or equal to 126 mg/dL meet the criteria for diagnosis of diabetes. In the absence of unequivocal hyperglycemia, results should be confirmed by repeat testing. In a patient with classic symptoms of hyperglycemia or hyperglycemic crisis, random plasma glucose results greater than or equal to 200 mg/dL meet the criteria for diagnosis of diabetes. Reference: Standards of Medical Care in Diabetes 2016, [place] Diabetes Association. Diabetes Care. 2016.39(Suppl 1). Performed By: #### 2 4321-2 ####[facility] LABORATORYCLIA [id number] [address] [place] [facility] Potassium [Moles/Vol] 4.7 mmol/L Normal 3.7-5.1 [facility] Comment on above: Order Comment: Speci men Type: BLOOD SPECIMENOrdering Facility: [facility] Address: [address] [place] [address] Performed By: #### 2 1-2 ####[facility]ITALCLIA [id number] [address] [place] [facility] Sodium [Moles/Vol] 137 mmol/L Normal 136-144 [facility] Comment on above: Order Comment: Radha wilson Type: BLOOD SPECIMENOrdering Facility: [facility] Address: [address] [place] [address] Performed By: #### 2 4321-2 ####[facility] CARE SERVICESIA [id number] [address] Urea nitrogen [Mass/Vol] 6 mg/dL Low 7-21 [facility] Comment on above: Order Comment: Speci men Type: BLOOD SPECIMENOrdering Facility: [facility] Address: [address] [place] [address] Performed By: #### 2 4321-2 ####[facility] LABORATORYCLIA [id number] [address] [place] CBC W Auto Differential pane l (Bld)on 06-24-2025 Basophils (Bld) [#/Vol] 10*3/uL Normal <0.11 [facility] Comment on above: Order Comment: Speci men Type: BLOOD SPECIMENOrdering Facility: [facility] Address: [address] [place] [address] Performed By: #### 5 7021-8 ####[facility]ORATORYCLIA [id number] [address] [place] [facility] Basophils/100 WBC (Bld) 0.2 % Normal [facility] Comment on above: Order Comment: Speci men Type: BLOOD SPECIMENOrdering Facility: [facility] Address: [address] [place] [address] Performed By: #### 5 7021-8 ####[facility] LABORATORYCLIA [id number] [address] Differential cell count method Nom (Bld) Auto Normal [facility] Comment on above: Order Comment: Speci men Type: BLOOD SPECIMENOrdering Facility: [facility] Address: [address] [place] [address] Performed By: #### 5 7021-8 ####[facility]ORATORYCLIA [id number] [address] Eosinophils (Bld) [#/Vol] 10*3/uL Normal <0.46 [facility] Comment on above: Order Comment: Speci men Type: BLOOD SPECIMENOrdering Facility: [facility] Address: [address] [place] [address] Performed By: #### 5 7021-8 ####[facility]ORATORYCLIA [id number] [address] Eosinophils/100 WBC (Bld) 0.0 % Normal [facility] Comment on above: Order Comment: Speci men Type: BLOOD SPECIMENOrdering Facility: [facility] Address: [address] [place] [address] Performed By: #### 5 7021-8 ####[facility] LABORATORYCLIA [id number] [address] [place] Erythrocyte distribution width (RBC) [Ratio] 11.9 % Normal 11.5-15.0 [facility] Comment on above: Order Comment: Speci men Type: BLOOD SPECIMENOrdering Facility: [facility] Address: [address] [place] [address] Performed By: #### 5 7021-8 ####[facility] LABORATORYCLIA [id number] [address] [place] Hematocrit (Bld) [Volume fraction] 36.9 % Normal 36.0-46.0 [facility] Comment on above: Order Comment: Speci men Type: BLOOD SPECIMENOrdering Facility: [facility] Address: [address] [place] [address] Performed By: #### 5 7021-8 ####[facility] LABORATORYCLIA [id number] [address] [place] Hemoglobin (Bld) [Mass/Vol] 12.4 g/dL Normal 11.5-15.5 [facility] Comment on above: Order Comment: Speci men Type: BLOOD SPECIMENOrdering Facility: [facility] Address: [address] [place] [address] Performed By: #### 5 7021-8 ####[facility] LABORATORYCLIA [id number] [address] [place] Immature granulocytes (Bld) [#/Vol] 0.04 10*3/uL Normal <0.10 [facility] Comment on above: Order Comment: Speci men Type: BLOOD SPECIMENOrdering Facility: [facility] Address: [address] [place] [address] Performed By: #### 5 7021-8 ####[facility]ORATORYCLIA [id number] [address] Immature granulocytes/100 WBC (Bld) 0.4 % Normal [facility] Comment on above: Order Comment: Speci men Type: BLOOD SPECIMENOrdering Facility: [facility] Address: [address] [place] [address] Performed By: #### 5 7021-8 ####[facility]ORATORYCLIA [id number] [address] [place] [facility] Lymphocytes (Bld) [#/Vol] 1.30 10*3/uL Normal 1.00-4.00 [facility] Comment on above: Order Comment: Speci men Type: BLOOD SPECIMENOrdering Facility: [facility] Address: [address] [place] [address] Performed By: #### 5 7021-8 ####[facility]ORATORYCLIA [id number] [address] Lymphocytes/100 WBC (Bld) 13.1 % Normal [facility] Comment on above: Order Comment: Speci men Type: BLOOD SPECIMENOrdering Facility: [facility] Address: [address] [place] [address] Performed By: #### 5 7021-8 ####[facility]ORATORYCLIA [id number] [address] [place] MCH (RBC) [Entitic mass] 28.4 pg Normal 26.0-34.0 [facility] Comment on above: Order Comment: Speci men Type: BLOOD SPECIMENOrdering Facility: [facility] Address: [address] [place] [address] Performed By: #### 5 7021-8 ####[facility]ORATORYCLIA [id number] [address] [place] MCHC (RBC) [Mass/Vol] 33.6 g/dL Normal 30.5-36.0 [facility] Comment on above: Order Comment: Speci men Type: BLOOD SPECIMENOrdering Facility: [facility] Address: [address] [place] [address] Performed By: #### 5 7021-8 ####[facility] LABORATORYCLIA [id number] [address] MCV (RBC) [Entitic vol] 84.4 fL Normal 80.0-100.0 [facility] Comment on above: Order Comment: Speci men Type: BLOOD SPECIMENOrdering Facility: [facility] Address: [address] [place] [address] Performed By: #### 5 7021-8 ####[facility]ORATORYCLIA [id number] [place] [address] [place] Monocytes (Bld) [#/Vol] 0.58 10*3/uL Normal <0.87 [facility] Comment on above: Order Comment: Speci men Type: BLOOD SPECIMENOrdering Facility: [facility] Address: [address] [place] [address] Performed By: #### 5 7021-8 ####[facility]ORATORYCLIA [id number] [address] [place] Monocytes/100 WBC (Bld) 5.8 % Normal [facility] Comment on above: Order Comment: Speci men Type: BLOOD SPECIMENOrdering Facility: [facility] Address: [address] [place] [address] Performed By: #### 5 7021-8 ####[facility]ORATORYCLIA [id number] [place] [address] [place] Neutrophils (Bld) [#/Vol] 8.01 10*3/uL High 1.45-7.50 [facility] Comment on above: Order Comment: Speci men Type: BLOOD SPECIMENOrdering Facility: [facility] Address: [address] [place] [address] Performed By: #### 5 7021-8 ####[facility] [facility]ORATORYCLIA [id number] [address] [place] Neutrophils/100 WBC (Bld) 80.5 % Normal [facility] Comment on above: Order Comment: Speci men Type: BLOOD SPECIMENOrdering Facility: [facility] Address: [address] [place] [address] Performed By: #### 5 7021-8 ####[facility]ORATORYCLIA [id number] [place] [address] [place] Nucleated RBC (Bld) [#/Vol] 10*3/uL Normal <0.01 [facility] Comment on above: Order Comment: Speci men Type: BLOOD SPECIMENOrdering Facility: [facility] Address: [address] [place] [address] Performed By: #### 5 7021-8 ####[facility]ORATORYCLIA [id number] [address] [place] [facility] Nucleated RBC/100 WBC (Bld) [Ratio] 0.0 /100 WBC Normal [facility] Comment on above: Order Comment: Speci men Type: BLOOD SPECIMENOrdering Facility: [facility] Address: [address] [place] [address] Performed By: #### 5 7021-8 ####[facility] LABORATORYCLIA [id number] [address] [place] [facility] Platelet mean volume (Bld) [Entitic vol] 10.3 fL Normal 9.0-12.7 [facility] Comment on above: Order Comment: Speci men Type: BLOOD SPECIMENOrdering Facility: [facility] Address: [address] [place] [address] Performed By: #### 5 7021-8 ####[facility]ORATORYCLIA [id number] [address] [place] Platelets (Bld) [#/Vol] 227 10*3/uL Normal 150-400 [facility] Comment on above: Order Comment: Speci men Type: BLOOD SPECIMENOrdering Facility: [facility] Address: [address] [place] [address] Performed By: #### 5 7021-8 ####[facility] LABORATORYCLIA [id number] [address] [place] RBC (Bld) [#/Vol] 4.37 10*6/uL Normal 3.90-5.20 [facility] Comment on above: Order Comment: Speci men Type: BLOOD SPECIMENOrdering Facility: [facility] Address: [address] [place] [address] Performed By: #### 5 7021-8 ####[facility] LABORATORYCLIA [id number] [place] [address] [place] WBC (Bld) [#/Vol] 9.95 10*3/uL Normal 3.70-11.00 [facility] Comment on above: Order Comment: Radha wilson Type: BLOOD SPECIMENOrdering Facility: [facility] Address: [address] [place] [address] Performed By: #### 5 7021-8 ####[facility] LABORATORYCLIA [id number] [address] CNDSon 06-24-2025 CNDS HNO ID: [id number] Author: EBONY BARRIOS MD Service: General Surgery Author Type: Resident Type: Discharge Summary Filed: 06/24/2025 13:21 Note Text: Attestation signed by Ebony Barrios MD at 06/24/2025 1:21 PM I saw and evaluated/examined the patient with the resident and personally participated in the vasques components. I have reviewed the resident's note and discussed the case and management of the patient's care with the resident. I agree with the above assessment and plan unless otherwise noted below. Plan of care discussed with: Provider, RN, Patient. DISCHARGE SUMMARY PATIENT NAME: Poly La Status: Full Code Highest Readmission Risk Score: 12 The 30 day readmissions risk score is derived from an internally validated risk model which evaluates patient level characteristics, utilization history, medication orders and lab results up until the day of discharge. Patients with a score of 39 or above are considered highest risk for readmission. Specific patient level drivers will be listed at the bottom of the summary. Admission Information Admission Information ADMIT DATE: 06/23/2025 DISCHARGE DATE: 06/24/2025 MY DOCTORS AND MEDICAL TEAM: My Main Hospital Doctor: Ebony Barrios MD Primary Care Provider: Wilson Wharton APRN.CNP My Medical Team Members: Treatment Team: Attending Provider: Ebony Barrios MD MY CONDITION AT DISCHARGE: Stable REASON I WAS IN THE HOSPITAL: Joan-en-Y gastric bypass SUMMARY OF WHAT HAPPENED WHILE I WAS IN THE HOSPITAL: Patient had scheduled surgery with Dr. Siegel for Joan-en-Y gastric bypass. Patient tolerated surgery well. Patient diet was advanced to B2 yesterday. Patient tolerating diet, pain controlled, and ambulating. Patient is stable for discharge. OTHER PROBLEMS/DIAGNOSIS: Principal Problem: Obesity, morbid, BMI 40.0-49.9 ([facility]) Resolved Problems: * No resolved hospital problems. * OPERATIONS PERFORMED WHILE IN THE HOSPITAL: Joan-en-Y gastric bypass IMPORTANT TEST/PROCEDURES: No procedures performed TEST RESULTS NOT AVAILABLE AT THIS TIME: No pending results Discharge Disposition Discharge Disposition: Home With Self Care Activity When You Leave the Hospital Lifting is restricted to: No more than 10 lbs for 3 weeks No prolonged bedrest, longer than 8 hours in a 24 hour period No swimming or hot tubs for: 2 weeks No walking restrictions Diet Instructions Other: B2 diet as discussed in the office For Pain When You Leave the Hospital No alcohol or driving while on pain medication Use the dispensed medication (see prescription) Wound/Surgical Site Care Leave open to air Some bleeding from the wound/surgical site can be expected. If excessive, see a doctor at once Wash your hands frequently, especially before touching your incision, after using restroom and before eating Call Your Doctor If There is an unusual odor from the wound area There is severe pain at the operative site You have a severe headache You have lightheadedness, fainting, or confusion You have persistent nausea/vomiting over 24 hours You have persistent or heavy bleeding You have redness, swelling, pus or drainage from the wound You have swollen glands or cold and clammy skin Your temperature is greater than 101F Follow Up Appointments Follow-up Appointment When: In 2 weeks Ebony Barrios MD [phone] [address] PCP Requested Referral Additional Provider to Provider Information: No notes on file Treatment Team: Attending Provider: Ebony Barrios MD Consulting: Ebony Barrios MD FINAL DIAGNOSIS: See below Active Hospital Problems Diagnosis POA Obesity, morbid, BMI 40.0-49.9 (HCC) Yes Resolved Hospital Problems No resolved problems to display. FOLLOW-UP APPOINTMENTS ALREADY SCHEDULED WITH A [facility] PROVIDER: Future Appointments Date Time Provider Department Center 07/01/2025 9:[address] [facility] [place] [facility] 07/01/2025 10:30 AM Ebony Barrios MD [facility] [place] [facility] 08/03/2025 9:20 AM Ira May APRN.[facility] PULMDOVNEW [facility] 09/04/2025 9:00 AM Lurdes Hernandez APRN.[place] FAMTalatWS [place] [facility] Allergen Reactions Lisinopril Intolerance Tape [Adhesive Tape* Rash DISCHARGE MEDICATION: Medication List START taking these medications acetaminophen 500 mg tablet Commonly known as: TYLENOL EXTRA STRENGTH Take 2 tablets by mouth every 6 hours as needed for pain for up to 7 days. traMADol 50 mg tablet Commonly known as: ULTRAM Take 1 tablet by mouth every 6 hours as needed for pain for up to 6 doses. CONTINUE taking these medications desvenlafaxine ER 25 mg 24 hr tablet Commonly known as: PRISTIQ Take 1 tablet by mouth once da (more content not included)... Normal [facility] ECG COMPLETEon 06-24-2025 ECG COMPLETE Ventricular Rate : 4 8 BPM Atrial Rate : 48 BPM P-R Interval : 154 ms QRS Duration : 98 ms Q-T Interval : 442 ms QTC Calculation(Bazett) : 394 ms Calculated P [place] : 43 degrees Calculated R [place] : 24 degrees Calculated T [place] : 18 degrees SINUS BRADYCARDIA OTHERWISE NORMAL ECG NO PREVIOUS ECGS AVAILABLE Confirmed by MICHOACANO SANDERS MD ([id number]) on 06/26/2025 5:35:49 AM NAME : POLY ARMANDO PID : [id number] : 1995 Gender : Female Race : ORD : [id number] Procedure Date : Jun 24 2025 11:42:08 Edit Date : Jun 26 2025 05:35:54 Diagnosis: SINUS BRADYCARDIA OTHERWISE NORMAL ECG NO PREVIOUS ECGS AVAILABLE Confirmed by MICHOACANO SANDERS MD ([id number]) on 06/26/2025 5:35:49 AM Test Reason : Bradycardia Location : 200 : [facility] 5212 Overread By : MICHOACANO SANDERS MD Edited By : MICHOACANO SANDERS MD Referred By : EBONY BARRIOS Acquired by : GISELLA SHAH [facility] PT EDon 06-24-2025 PT ED HNO ID: [id number] Author: ROVERTO JONES RN Service: Nursing Author Type: Registered Nurse Type: Patient Education Filed: 06/24/2025 08:04 Note Text: I visited with the patient while inpatient in room 5212. Patient was provided with written education regarding common issues and/or questions post-surgery. Reviewed fluid and protein goals, importance of ambulation and use of incentive spirometer. Reviewed signs and symptoms of incision infection and blood clots and what to report to the staff. Reviewed use of medications to assist with nausea, constipation, and pain. Encouraged patient to call into the bariatric office at [phone], hit option #2 for the post-op line with any questions or concerns. Patient verbalized understanding and all questions answered. Roverto Jones RN June 24, 2025 8:04 AM [facility] ANES PRE-OPon 06-23-2025 ANES PRE-OP HNO ID: [id number] Author: ELKE SALDAÑA MD Service: Anesthesiology Author Type: Anesthesiologist Type: Anesthesia Preprocedure Evaluation Filed: 06/23/2025 11:34 Note Text: ANESTHESIOLOGY DAY OF SURGERY NOTE : 1995 Procedure Information Date/Time: 06/23/25 1210 Procedures: XI ROBOTIC LAPAROSCOPIC GASTRIC RESTRICTIVE SURG W/ BYPASS AND JOAN-EN-Y 150CM (Abdomen) - -Bariatric ERAS Protocol -SA Requested BILATERAL TAP BLOCKS EGD (Abdomen) LAPAROSCOPIC RPR PARAESOPHAGEAL HERNIA W/MESH (Abdomen) TRANSFUSION BLOOD (Abdomen) Location: [place] [facility] 04 / [place] [facility] Surgeons: Ebony Barrios MD Estimated body mass index is 43.22 kg/m? as calculated from the following: Height as of 06/16/25: 160 cm (5' 3). Weight as of 06/16/25: 110.7 kg (244 lb). Most recent hematocrit and potassium results: Hematocrit 40.5 06/16/2025 Potassium 4.4 06/16/2025 Relevant Problems CARDIO (+) Hypertension, essential (+) Migraine without aura, not intractable, with status migrainosus GI (+) GERD (gastroesophageal reflux disease) -RENAL (+) NAFLD (nonalcoholic fatty liver disease) NEURO-PSYCH (+) Generalized seizures (HCC) (+) Headache, rebound (+) Migraine without aura, not intractable, with status migrainosus (+) Seizure disorder (HCC) (+) Tension headaches I - PHYSICAL EVALUATION AIRWAY Patient intubated: No. Tracheostomy tube not present Mallampati: III. TM distance: >3 FB. Neck ROM: full ROM without neurological symptoms. Mouth opening: >3 FB. Short neck: no. Thick neck: no DENTAL Dental findings: teeth intact. II - ANESTHESIA PLAN ASA Score: 3 Anesthetic Plan: general Airway type: ETT The patient is not a current smoker. NPO Status: adequate Monitoring Plan Monitoring plan: standard ASA. Post Procedure Analgesic Plan Postoperative analgesic plan: parenteral or oral opioids and multimodal analgesia. Informed Consent Anesthetic risks, benefits, alternatives, personnel and consent discussed: yes. Patient / Responsible Constitution Party agrees to proceed: yes Patient / Surrogate agrees to blood products: Yes Potential Anesthesia issues that may suggest increased risk of complications or contraindication to planned procedure: none. Vitals Value Taken Time BP 127/66 06/23/25 10:37 Pulse 63 06/23/25 10:36 Resp 18 06/23/25 10:36 Temp 36.6 ?C (97.9 ?F) 06/23/25 10:36 SpO2 99 % 06/23/25 10:37 Vitals shown include unfiled device data. Facility-Administered Medications as of 06/23/2025 Medication Dose Route Frequency lidocaine (PF) 10 mg/mL (1 %) 1-2 mg injection (XYLOCAINE) 0.1-0.2 mL INTRADERMAL PRN lactated ringers iv infusion 5-30 mL/hr INTRAVENOUS CONTINUOUS NaCl 0.9% iv flush bag 20 mL INTRAVENOUS PRN [COMPLETED] enoxaparin 40 mg injection (LOVENOX) 40 mg SUBCUTANEOUS Pre-Op Once cefOXitin 2 g in NaCl 0.9% 100 mL Vial-Bag (MEFOXIN) 2 g INTRAVENOUS Pre-Op Once [COMPLETED] acetaminophen 975 mg CUP (TYLENOL) 975 mg ORAL Pre-Op Once [COMPLETED] celecoxib 200 mg cap(s) (CeleBREX) 200 mg ORAL Pre-Op Once [COMPLETED] scopolamine (delivers 1 mg over 3 days) 1 patch (TRANSDERM-SCOP) 1 patch TRANSDERMAL ONCE scopolamine - VERIFY patch OTHER q 8 H [START ON 06/26/2025] scopolamine - REMOVE PATCH OTHER ONCE magnesium sulfate iv piggyback in sterile water 2 g 50 mL 2 g INTRAVENOUS ONCE Outpatient Medications as of 06/23/2025 Medication Sig metFORMIN (GLUCOPHAGE) 500 mg tablet Take 1 tablet by mouth two times a day with meals. propranolol ER (INDERAL LA) 160 mg Cs24 Take 1 capsule by mouth once daily. desvenlafaxine ER (PRISTIQ) 25 mg 24 hr tablet Take 1 tablet by mouth once daily. Combine with Lexapro x 30 days then D.C escitalopram oxalate (LEXAPRO) 20 mg tablet Take 1 tablet by mouth once daily. predniSONE (DELTASONE) 20 mg tablet Take three tablets daily for three days, then two tablets daily for three days, then one tablets daily for three days. (Patient not taking: Reported on 06/16/2025) modafinil (PROVIGIL) 200 mg tablet Take 1 tablet by mouth once daily for 180 days. (Patient not taking: Reported on 06/23/2025) famotidine (PEPCID) 40 mg tablet Take 1 tablet by mouth once daily. I have interviewed and examined the patient. I have reviewed the medical record and/or the pre-anesthesia evaluation, pertinent labs, and test results. This contains updated information obtained within 48 hours of Surgery/Procedure. SIGNATURE: Elke Saldaña MD PATIENT NAME: Poly Armando DATE: June 23, 2025 TIME: 11:32 AM CSN: [id number] Normal [facility] CBC W Auto Differential pane l (Bld)on 06-23-2025 Basophils (Bld) [#/Vol] 10*3/uL Normal <0.11 [facility] Comment on above: Order Comment: Speci men Type: BLOOD SPECIMENOrdering Facility: [facility] Address: [address] [place] [address] Performed By: #### 5 7021-8 ####[facility]ORATORYCLIA [id number] [address] Basophils/100 WBC (Bld) 0.1 % Normal A [facility] Comment on above: Order Comment: Speci men Type: BLOOD SPECIMENOrdering Facility: [facility] Address: [address] [place] [address] Performed By: #### 5 7021-8 ####[facility]ORATORYCLIA [id number] [address] Differential cell count method Nom (Bld) Auto Normal [facility] Comment on above: Order Comment: Speci men Type: BLOOD SPECIMENOrdering Facility: [facility] Address: [address] [place] [address] Performed By: #### 5 7021-8 ####[facility] LABORATORYCLIA [id number] [address] [place] Eosinophils (Bld) [#/Vol] 10*3/uL Normal <0.46 [facility] Comment on above: Order Comment: Speci men Type: BLOOD SPECIMENOrdering Facility: [facility] Address: [address] [place] [address] Performed By: #### 5 7021-8 ####[facility] LABORATORYCLIA [id number] [address] Eosinophils/100 WBC (Bld) 0.0 % Normal [facility] Comment on above: Order Comment: Speci men Type: BLOOD SPECIMENOrdering Facility: [facility] Address: [address] [place] [address] Performed By: #### 5 7021-8 ####[facility]ORATORYCLIA [id number] [address] Erythrocyte distribution width (RBC) [Ratio] 12.1 % Normal 11.5-15.0 [facility] Comment on above: Order Comment: Speci men Type: BLOOD SPECIMENOrdering Facility: [facility] Address: [address] [place] [address] Performed By: #### 5 7021-8 ####[facility] LABORATORYCLIA [id number] [address] [place] Hematocrit (Bld) [Volume fraction] 41.2 % Normal 36.0-46.0 [facility] Comment on above: Order Comment: Speci men Type: BLOOD SPECIMENOrdering Facility: [facility] Address: [address] [place] [address] Performed By: #### 5 7021-8 ####[facility] LABORATORYCLIA [id number] [address] [place] Hemoglobin (Bld) [Mass/Vol] 13.4 g/dL Normal 11.5-15.5 [facility] Comment on above: Order Comment: Speci men Type: BLOOD SPECIMENOrdering Facility: [facility] Address: [address] [place] [address] Performed By: #### 5 7021-8 ####[facility] LABORATORYCLIA [id number] [address] [place] Immature granulocytes (Bld) [#/Vol] 0.04 10*3/uL Normal <0.10 [facility] Comment on above: Order Comment: Speci men Type: BLOOD SPECIMENOrdering Facility: [facility] Address: [address] [place] [address] Performed By: #### 5 7021-8 ####[facility] LABORATORYCLIA [id number] [address] [place] Immature granulocytes/100 WBC (Bld) 0.3 % Normal [facility] Comment on above: Order Comment: Speci men Type: BLOOD SPECIMENOrdering Facility: [facility] Address: [address] [place] [address] Performed By: #### 5 7021-8 ####[facility] LABORATORYCLIA [id number] [address] [place] Lymphocytes (Bld) [#/Vol] 1.02 10*3/uL Normal 1.00-4.00 [facility] Comment on above: Order Comment: Speci men Type: BLOOD SPECIMENOrdering Facility: [facility] Address: [address] [place] [address] Performed By: #### 5 7021-8 ####[facility] LABORATORYCLIA [id number] [address] Lymphocytes/100 WBC (Bld) 7.5 % Normal [facility] Comment on above: Order Comment: Speci men Type: BLOOD SPECIMENOrdering Facility: [facility] Address: [address] [place] [address] Performed By: #### 5 7021-8 ####[facility] LABORATORYCLIA [id number] [address] MCH (RBC) [Entitic mass] 28.3 pg Normal 26.0-34.0 [facility] Comment on above: Order Comment: Speci men Type: BLOOD SPECIMENOrdering Facility: [facility] Address: [address] [place] [address] Performed By: #### 5 7021-8 ####[facility] LABORATORYCLIA [id number] [address] MCHC (RBC) [Mass/Vol] 32.5 g/dL Normal 30.5-36.0 [facility] Comment on above: Order Comment: Speci men Type: BLOOD SPECIMENOrdering Facility: [facility] Address: [address] [place] [address] Performed By: #### 5 7021-8 ####[facility] LABORATORYCLIA [id number] [address] MCV (RBC) [Entitic vol] 86.9 fL Normal 80.0-100.0 [facility] Comment on above: Order Comment: Speci men Type: BLOOD SPECIMENOrdering Facility: [facility] Address: [address] [place] [address] Performed By: #### 5 7021-8 ####[facility] LABORATORYCLIA [id number] [address] Monocytes (Bld) [#/Vol] 0.15 10*3/uL Normal <0.87 [facility] Comment on above: Order Comment: Speci men Type: BLOOD SPECIMENOrdering Facility: [facility] Address: [address] [place] [address] Performed By: #### 5 7021-8 ####[facility] LABORATORYCLIA [id number] [address] [place] Monocytes/100 WBC (Bld) 1.1 % Normal [facility] Comment on above: Order Comment: Speci men Type: BLOOD SPECIMENOrdering Facility: [facility] Address: [address] [place] [address] Performed By: #### 5 7021-8 ####[facility] LABORATORYCLIA [id number] [address] [place] Neutrophils (Bld) [#/Vol] 12.40 10*3/uL High 1.45-7.50 [facility] Comment on above: Order Comment: Speci men Type: BLOOD SPECIMENOrdering Facility: [facility] Address: [address] [place] [address] Performed By: #### 5 7021-8 ####[facility] LABORATORYCLIA [id number] [address] [place] Neutrophils/100 WBC (Bld) 91.0 % Normal [facility] Comment on above: Order Comment: Speci men Type: BLOOD SPECIMENOrdering Facility: [facility] Address: [address] [place] [address] Performed By: #### 5 7021-8 ####[facility]ORATORYCLIA [id number] [place] [address] [place] Nucleated RBC (Bld) [#/Vol] 10*3/uL Normal <0.01 [facility] Comment on above: Order Comment: Speci men Type: BLOOD SPECIMENOrdering Facility: [facility] Address: [address] [place] [address] Performed By: #### 5 7021-8 ####[facility]ATORYCLIA [id number] [address] [place] Nucleated RBC/100 WBC (Bld) [Ratio] 0.0 /100 WBC Normal [facility] Comment on above: Order Comment: Speci men Type: BLOOD SPECIMENOrdering Facility: [facility] Address: [address] [place] [address] Performed By: #### 5 7021-8 ####[facility] LABORATORYCLIA [id number] [place] [address] [place] Platelet mean volume (Bld) [Entitic vol] 10.2 fL Normal 9.0-12.7 [facility] Comment on above: Order Comment: Speci men Type: BLOOD SPECIMENOrdering Facility: [facility] Address: [address] [place] [address] Performed By: #### 5 7021-8 ####[facility] LABORATORYCLIA [id number] [address] [place] Platelets (Bld) [#/Vol] 167 10*3/uL Normal 150-400 [facility] Comment on above: Order Comment: Speci men Type: BLOOD SPECIMENOrdering Facility: [facility] Address: [address] [place] [address] Performed By: #### 5 7021-8 ####[facility] LABORATORYCLIA [id number] [place] [address] [place] RBC (Bld) [#/Vol] 4.74 10*6/uL Normal 3.90-5.20 [facility] Comment on above: Order Comment: Speci men Type: BLOOD SPECIMENOrdering Facility: [facility] Address: [address] [place] [address] Performed By: #### 5 7021-8 ####[facility] LABORATORYCLIA [id number] [place] [address] [place] WBC (Bld) [#/Vol] 13.63 10*3/uL High 3.70-11.00 [facility] Comment on above: Order Comment: Speci men Type: BLOOD SPECIMENOrdering Facility: [facility] Address: [address] [place] [address] Performed By: #### 5 7021-8 ####[facility] [id number] [place] [id number] [facility] [place] OPERATIVE NOon 06-23-2025 OPERATIVE NO HNO ID: [id number] Author: EBONY BARRIOS MD Service: General Surgery Author Type: Physician Type: Operative Report Filed: 06/23/2025 15:23 Note Text: OPERATIVE/PROCEDURE REPORT LOG ID: [id number] Surgery/Procedure Date: 06/23/2025 Incision/Procedure Start Time: 12:16 PM Incision Close/Procedure End Time: 3:14 PM SURGEON/PILOT CAN ROUTER: Surgeons and Role: * Ebony Barrios MD - Primary * Santo Douglas MD - Resident - Assisting OPERATION: - Robotic (Xi) Joan-en-Y gastric bypass - EGD - Laparoscopic bilateral TAP blocks ANESTHESIA: - General endotracheal anesthesia PREOPERATIVE DIAGNOSIS: - Severe obesity with a body mass index of 43.82 - Weight related comorbid conditions including Pre-diabetes, HTN, tachycardia, GERD, depression and anxiety, seizures, and NAFLD POSTOPERATIVE DIAGNOSIS: - Severe obesity - Hepatomegaly - Weight related comorbid conditions as listed above OPERATIVE INDICATIONS: The patient is a 30 year old year old female with obesity (BMI of 43.82) and weight related comorbid conditions as listed above.The patient was evaluated by our multidisciplinary group and considered to be a good candidate for bariatric surgery. After discussion of risks, benefits, and alternatives, the patient agreed to proceed and provided both written and verbal informed consent. OPERATIVE FINDINGS: - Severe Hepatomegaly - The operation was completed robotically. An 80 cm biliopancreatic limb and 140 cm antecolic-antegastric Joan-en-Y gastric bypass was performed. The intraoperative leak test performed with EGD was found to be negative with no evidence of endoluminal bleeding. OPERATIVE PROCEDURE: In the pre-operative area a safety huddle was performed with the patient, her family, and the surgical and anesthesia teams. During the safety huddle the correct patient, procedure, MRN, and date of were verified; any questions or concerns were addressed and all present were in agreement. The patient was then brought to the operating room and positioned on the operating room table in the supine position with a pillow under her knees for comfort. It was verified that she was secured to the operating room table with a security strap. General endotracheal anesthesia was induced. All pressure points were appropriately padded. A foot board was placed at the end of the bed and the patient's extremities were secured to the bed and the arm boards. The abdomen was prepped and draped in the standard sterile fashion. Appropriate perioperative antibiotics were administered. A final pre-op time out was performed. It was again verified that appropriate VTE prophylaxis had been provided and that SCDs had been placed. The procedure commenced by entering the peritoneal cavity in the left upper abdomen at Sandoval's point with a 5 mm optical trocar via the optiview technique. Pneumoperitoneum was established and atraumatic entry was verified. Diagnostic laparoscopy revealed hepatomegaly and adhesions in the lower abdomen. The patient was then positioned in 16 degree reverse Trendelenberg's position with a 5 degree right tilt. Next, three 8 mm trocars were placed in the left upper quadrant - in a straight horizontal line and using hot laparoscopic scissors the adhesions of the lower abdomen were taken down. The Parth retractor using the fast clamp was placed in the epigastric region and positioned in order to retract the left lobe of the liver towards the anterior abdominal wall. An additional 12-mm trocar was then placed in the right upper quadrant slightly to the right and above the level of the umbilicus. The 12-mm trocar was closed in interrupted fashion transfascially with use of the Maxwell-Jennifer suture passer device with an 0-Vicryl tie. An office assistant 8-mm trocar was placed. A Raytex was placed into the abdomen and the robot was then docked. I then turned my attention to the phrenoesophageal fat pad, which was dissected off towards the left natalie of the diaphragm. The pars flaccida was then opened using electrocautery. The left gastric artery was identified; next the descending branches of the left gastric vessels were taken with single firing of a white load robotic stapler with a staple reinforcement (SeamGuard). Thereafter, one blue staple load was placed in the horizontal plane to create the distal aspect of the pouch using a 40F bougie as a sizer. Next, two white vertical firings were used to create a small gastric pouch. Staple line construction was excellent and proper hemostasis was achieved. There was no evidence of bleeding. The patient was then again positioned flat/supine. Sequentially, the omentum and transverse mesocolon were elevated. The omental spilt was created. Next, the duodenum was identified and the Ligament of Treitz identified via the inferior mesenteric vein. Approximately 80 cm distal to this, the proximal jejunum was measured and a small (more content not included)... Normal [facility] CNPNon 06-17-2025 CNPN Telephone ([facility]) POLY ARMANDO ([id number]) 1995 F Date Time Provider Department 06/17/25 EBONY BARRIOS [facility] During your visit today, we recorded the following information about you: Heather Stevens 06/17/2025 11:42 AM Signed Spoke with pt and confirmed sx date/arrival time and location. Allergies As of Date: 06/17/2025 Noted Allergy Reaction LISINOPRIL 01/20/2022 5 - Intolerance TAPE (ADHESIVE TAPE (ROSINS)) 08/14/2024 2 - Rash Date Reviewed: 06/16/2025 Reviewed by: Gerda Stephens APRN.BOOM MASTER - Fully Assessed Reason for Visit: Patient Update [1234] Cmt: Sx Confirmation Call Prescriptions as of 06/17/2025 - ursodiol (ACTIGALL) 300 mg capsule Take 1 capsule by mouth two times a day. TO START AFTER SURGERY. - pantoprazole DR (PROTONIX) 40 mg tablet Take 1 tablet by mouth once daily. TO START AFTER SURGERY. Take every day for 6 months after surgery. - ondansetron (ZOFRAN) 4 mg tablet Take 1 tablet by mouth every 8 hours as needed for nausea/vomiting for up to 15 doses. TO START AFTER SURGERY. - desvenlafaxine ER (PRISTIQ) 25 mg 24 hr tablet Take 1 tablet by mouth once daily. Combine with Lexapro x 30 days then D.C - escitalopram oxalate (LEXAPRO) 20 mg tablet Take 1 tablet by mouth once daily. - predniSONE (DELTASONE) 20 mg tablet Take three tablets daily for three days, then two tablets daily for three days, then one tablets daily for three days. - metFORMIN (GLUCOPHAGE) 500 mg tablet Take 1 tablet by mouth two times a day with meals. - modafinil (PROVIGIL) 200 mg tablet Take 1 tablet by mouth once daily for 180 days. - propranolol ER (INDERAL LA) 160 mg Cs24 Take 1 capsule by mouth once daily. - famotidine (PEPCID) 40 mg tablet Take 1 tablet by mouth once daily. 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] 01/04/2021 Scoliosis concern [Z13.828] 01/04/2021 Seizure disorder (HCC) [G40.909] 01/04/2021 Migraine without aura, not intractable, with st*01/04/2021 Elevated blood pressure reading without diagnos*01/04/2021 12/05/2021 Generalized seizures (HCC) [R56.9] 03/03/2021 Tension headaches [G44.209] 03/03/2021 Headache, rebound [G44.40] 03/03/2021 ROBERT (generalized anxiety disorder) [F41.1] 11/18/2021 Hypertension, essential [I10] 11/18/2021 Hidradenitis suppurativa [L73.2] 11/18/2021 Acne vulgaris [L70.0] 11/18/2021 Lymph node enlargement [R59.9] 11/18/2021 Breathing difficult [R06.89] 01/18/2022 07/07/2022 Shakiness [R25.1] 01/18/2022 07/07/2022 Racing heart beat [R00.0] 01/18/2022 Elevated heart rate with elevated blood pressur*01/20/2022 Excessive daytime sleepiness [G47.19] 01/22/2025 Sleep-disordered breathing [G47.30] 01/22/2025 Pre-op examination [Z01.818] 06/15/2025 GERD (gastroesophageal reflux disease) [K21.9] 06/15/2025 Pre-diabetes [R73.03] 06/15/2025 NAFLD (nonalcoholic fatty liver disease) [K76.0]06/16/2025 Encounter Status:Closed by HEATHER STEVENS on 06/17/25 Normal [facility] Albumin SerPl-mCncon 025 Albumin [Mass/Vol] 4.6 g/dL Normal 3.9-4.9 [facility] Comment on above: Order Comment: Speci men Type: BLOOD SPECIMENOrdering Facility: [facility] Address: [address] [place] [address] Performed By: #### 1 751-7, 46677-8 ####[facility] LABORATORYCLIA [id number] [place] [address] [place] Basic metabolic 2000 panelon 06-16-2025 Anion gap [Moles/Vol] 11 mmol/L Normal 8-15 [facility] Comment on above: Order Comment: Speci men Type: BLOOD SPECIMENOrdering Facility: [facility] Address: [address] [place] [address] Performed By: #### 1 751-7, 43737-4 ####[facility] LABORATORYCLIA [id number] [place] [address] [place] Calcium [Mass/Vol] 9.6 mg/dL Normal 8.5-10.2 [facility] Comment on above: Order Comment: Speci men Type: BLOOD SPECIMENOrdering Facility: [facility] Address: [address] [place] [address] Performed By: #### 1 751-7, 41719-9 ####[facility] LABORATORYCLIA [id number] [place] [address] [place] Chloride [Moles/Vol] 99 mmol/L Normal 98-107 [facility] Comment on above: Order Comment: Speci men Type: BLOOD SPECIMENOrdering Facility: [facility] Address: [address] [place] [address] Performed By: #### 1 751-7, 31455-3 ####[facility] LABORATORYCLIA [id number] [place] [address] [place] CO2 [Moles/Vol] 24 mmol/L Normal 22-30 [facility] Comment on above: Order Comment: Speci men Type: BLOOD SPECIMENOrdering Facility: [facility] Address: [address] [place] [address] Performed By: #### 1 751-7, 95312-5 ####[facility] [id number] [address] STATES [facility] Creatinine [Mass/Vol] 0.68 mg/dL Normal 0.58-0.96 [facility] Comment on above: Order Comment: Speci men Type: BLOOD SPECIMENOrdering Facility: [facility] Address: [address] [place] [address] Performed By: #### 1 751-7, 60243-3 ####[facility] CARE SERVICESIA [id number] [address] eGFRcr SerPlBld CKD-EPI 2020 120 mL/min/1.73m??? Normal >=60 [facility] Comment on above: Order Comment: Speci men Type: BLOOD SPECIMENOrdering Facility: [facility] Address: [address] [place] [address] Result Comment: Kath mated Glomerular Filtration Rate (eGFR) is calculated using the 2020 CKD-EPI creatinine equation. This equation utilizes serum creatinine, sex, and age as parameters. The creatinine assay has traceable calibration to isotope dilution-mass spectrometry. Refer to KDIGO guidelines for clinical interpretation. In patients with unstable renal function, e.g. those with acute kidney injury, the eGFR may not accurately reflect actual GFR. Performed By: #### 1 751-7, 25808-8 ####[facility] LABORATORYIA [id number] [address] STATES [facility] Glucose [Mass/Vol] 88 mg/dL Normal 74-99 [facility] Comment on above: Order Comment: Speci men Type: BLOOD SPECIMENOrdering Facility: [facility] Address: [address] [id number] Result Comment: The [place] Diabetes Association (ADA) provides guidance for cutoff values for fasting glucose and random glucose. The ADA defines fasting as no caloric intake for at least 8 hours. Fasting plasma glucose results between 100 to 125 mg/dL indicate increased risk for diabetes (prediabetes). Fasting plasma glucose results greater than or equal to 126 mg/dL meet the criteria for diagnosis of diabetes. In the absence of unequivocal hyperglycemia, results should be confirmed by repeat testing. In a patient with classic symptoms of hyperglycemia or hyperglycemic crisis, random plasma glucose results greater than or equal to 200 mg/dL meet the criteria for diagnosis of diabetes. Reference: Standards of Medical Care in Diabetes 2016, [place] Diabetes Association. Diabetes Care. 2016.39(Suppl 1). Performed By: #### 1 751-7, 81099-7 ####[facility] LABORATORYCLIA [id number] [place] [address] [place] Potassium [Moles/Vol] 4.4 mmol/L Normal 3.7-5.1 [facility] Comment on above: Order Comment: Speci men Type: BLOOD SPECIMENOrdering Facility: [facility] Address: [address] [place] [address] Performed By: #### 1 751-7, 95779-8 ####[facility] LABORATORYCLIA [id number] [place] [address] [place] Sodium [Moles/Vol] 134 mmol/L Low 136-144 [facility] Comment on above: Order Comment: Speci men Type: BLOOD SPECIMENOrdering Facility: [facility] Address: [address] [id number] Performed By: #### 1 751-7, 35606-4 ####[facility] LABORATORYCLIA [id number] [place] [address] [place] Urea nitrogen [Mass/Vol] 16 mg/dL Normal 7-21 [facility] Comment on above: Order Comment: Speci men Type: BLOOD SPECIMENOrdering Facility: [facility] Address: [address] [id number] Performed By: #### 1 751-7, 03133-1 ####[facility] LABORATORYCLIA [id number] [address] STATES [facility] CBC panel Auto (Bld)on 06-16 Erythrocyte distribution width (RBC) [Ratio] 12.1 % Normal 11.5-15.0 [facility] Comment on above: Order Comment: Speci men Type: BLOOD SPECIMENOrdering Facility: [facility] Address: [address] [place] [address] Performed By: #### 5 8410-2 ####[facility] LABORATORYCLIA [id number] [address] Hematocrit (Bld) [Volume fraction] 40.5 % Normal 36.0-46.0 [facility] Comment on above: Order Comment: Speci men Type: BLOOD SPECIMENOrdering Facility: [facility] Address: [address] [place] [address] Performed By: #### 5 8410-2 ####[facility] LABORATORYCLIA [id number] [address] Hemoglobin (Bld) [Mass/Vol] 13.4 g/dL Normal 11.5-15.5 [facility] Comment on above: Order Comment: Speci men Type: BLOOD SPECIMENOrdering Facility: [facility] Address: [address] [place] [address] Performed By: #### 5 8410-2 ####[facility] LABORATORYCLIA [id number] [address] STATES [facility] MCH (RBC) [Entitic mass] 28.2 pg Normal 26.0-34.0 [facility] Comment on above: Order Comment: Speci men Type: BLOOD SPECIMENOrdering Facility: [facility] Address: [address] [place] [address] Performed By: #### 5 8410-2 ####[facility] LABORATORYCLIA [id number] [address] [place] MCHC (RBC) [Mass/Vol] 33.1 g/dL Normal 30.5-36.0 [facility] Comment on above: Order Comment: Speci men Type: BLOOD SPECIMENOrdering Facility: [facility] Address: [address] [place] [address] Performed By: #### 5 8410-2 ####[facility] LABORATORYCLIA [id number] [address] [place] MCV (RBC) [Entitic vol] 85.1 fL Normal 80.0-100.0 [facility] Comment on above: Order Comment: Speci men Type: BLOOD SPECIMENOrdering Facility: [facility] Address: [address] [place] [address] Performed By: #### 5 8410-2 ####[facility] LABORATORYCLIA [id number] [address] [facility] Nucleated RBC (Bld) [#/Vol] 10*3/uL Normal <0.01 [facility] Comment on above: Order Comment: Speci men Type: BLOOD SPECIMENOrdering Facility: [facility] Address: [address] [place] [address] Performed By: #### 5 8410-2 ####[facility] LABORATORYCLIA [id number] [address] [facility] Platelet mean volume (Bld) [Entitic vol] 9.9 fL Normal 9.0-12.7 [facility] Comment on above: Order Comment: Speci men Type: BLOOD SPECIMENOrdering Facility: [facility] Address: [address] [place] [address] Performed By: #### 5 8410-2 ####[facility] LABORATORYCLIA [id number] [address] [place] Platelets (Bld) [#/Vol] 254 10*3/uL Normal 150-400 [facility] Comment on above: Order Comment: Speci men Type: BLOOD SPECIMENOrdering Facility: [facility] Address: [address] [place] [address] Performed By: #### 5 8410-2 ####[facility] LABORATORYCLIA [id number] [place], [place] [id number] [place] [address] [facility] RBC (Bld) [#/Vol] 4.76 10*6/uL Normal 3.90-5.20 [facility] Comment on above: Order Comment: Speci men Type: BLOOD SPECIMENOrdering Facility: [facility] Address: [address] [place] [address] Performed By: #### 5 8410-2 ####[facility] LABORATORYCLIA [id number] [place] [id number] [facility] WBC (Bld) [#/Vol] 7.17 10*3/uL Normal 3.70-11.00 [facility] Comment on above: Order Comment: Speci men Type: BLOOD SPECIMENOrdering Facility: [facility] Address: [address] [place] [address] Performed By: #### 5 8410-2 ####[facility] LABORATORYCLIA [id number] [address] HISTORY PHYSICALon HISTORY PHYSICAL HNO ID: [id number] Author: GERDA STEPHENS APRN.BOOM MASTER Service: ? Author Type: Nurse Practitioner Type: H&P Filed: 06/16/2025 10:51 Note Text: [facility] HISTORY AND PHYSICAL EXAMINATION SERVICE DATE: 06/16/2025 SERVICE TIME: 10:40 AM PRIMARY CARE PHYSICIAN: Wilson Wharton APRN.BOOM MASTER Assessment Patient has the following medical conditions which may affect khari-operative course: Pre-op examination Medical conditions which may affect the perioperative course were address in today's visit. Obesity, Class III, BMI >= 40 BMI 43 Surgery scheduled 06/23/25 Migraine without aura, not intractable, with status migrainosus Reports stable Hypertension, essential Controlled on propranolol Instructed to take DOS. Last 14 BP Last 14 Encounter BP Readings: Date: BP: 04/16/2025 120/62 03/20/2025 129/76 03/05/2025 120/76 02/27/2025 102/72 01/22/2025 117/79 01/15/2025 124/88 01/08/2025 118/68 12/17/2024 118/70 11/28/2024 118/84 10/28/2024 114/64 10/14/2024 126/84 08/01/2024 122/78 07/11/2024 120/77 05/30/2024 110/76 GERD (gastroesophageal reflux disease) Stable on protonix - take as prescribed Pre-diabetes On metformin - hold DOS Hemoglobin A1C (%) Date Value 01/08/2025 6.0 11/05/2023 5.9 10/17/2022 5.7 Seizure disorder (HCC) Per patient - had absence seizures x 4 Stopped medications 2020 - 2021; Reports seizures were stress related - her son was diagnosed with leukemia; [id number] - he was in remission Denies seizures after that. Racing heart beat Stable on propranolol HR - 68 during PAT NAFLD (nonalcoholic fatty liver disease) Monitored by GI Surgery scheduled 06/23/25 ANESTHESIA FINDINGS: Intubation History: No history of difficult intubation. No abnormal airway history Significant Anesthesia Considerations: none Airway History: No history of difficult airway No abnormal airway history Monreal Activity Status Index: METS: Climb a flight of stairs or walk up a hill (5.50 METs) DASI Score: 5.5 Patient denies any chest pain or undue shortness of breath with the above physical activity. Clinical Frailty Scale: 3. Well, with treated comorbid disease ARISCAT Score: Age: <=50 Preoperative SpO2: >=96% Respiratory infection in the last month: No Preoperative anemia: No Surgical incision: upper abdominal Duration of surgery: >3 hrs Emergency procedure: No ARISCAT Score: 38 I - PHYSICAL EVALUATION AIRWAY Patient intubated: No. DENTAL Dental findings: teeth intact, broken and broken tooth. II - ANESTHESIA PLAN Anesthetic Plan: general Informed Consent Prepared for Surgery: CONSULTS: The following consults have been initiated at this time: cardiology (in [facility]), primary care/internal medicine (in [facility]) and pulmonary (in [facility]). Planned Anesthetic: general The Following Tests/Procedures Have Been Initiated: No orders of the defined types were placed in this encounter. REASON FOR VISIT: Poly Armando is a 30 year old female who is scheduled for Procedure(s) with comments: XI ROBOTIC LAPAROSCOPIC GASTRIC RESTRICTIVE SURG W/ BYPASS AND JOAN-EN-Y (N/A) - -Bariatric ERAS Protocol - Requested BILATERAL TAP BLOCKS EGD (N/A) LAPAROSCOPIC RPR PARAESOPHAGEAL HERNIA W/MESH (N/A) TRANSFUSION BLOOD (N/A) at the request of Dr. Ebony Barrios for routine HANDP. My final recommendation will be communicated back to the requesting physician by way of shared medical record or letter. Subjective The patient has the following: COVID-19 Immunization Status This patient has no relevant Health Maintenance data. CHIEF COMPLAINT: The reason for this visit is to perform a comprehensive review of the patient's past medical history, assess their current health status and obtain any additional testing required based on anesthesia guidelines. We will also identify any potential anesthesia problems or contraindications to the planned procedure. HPI: Poly Armando is a 30 year old female who presents to [facility] for the above procedure. Patient has been struggling with body weight, attempted dietary and exercise programs and would lose weight and gain back. Since beginning of program patient has lost weight and feels ready for the procedure. Denies recent N/V or difficulty with BM, no abdominal pain. After discussing with surgeon, patient agrees to surgical intervention. Risk and benefits discussed by surgeon. Patient denies any other problems or concerns at this time. REVIEW OF SYSTEMS: General: Negative for: fever. Neurological: Positive for: headaches and seizures. Negative for: delirium, dementia, TIA and strokes. Respiratory: Negative for: asthma, COPD, pneumonia within 6 weeks, URI < 2 weeks and obstructive sleep apnea. Cardiovascular: Positive for: hypertension Negative for: atrial fibrillation, CAD, chest pain, DVT/PE and recent SC. GI: (more content not included)... Normal [facility] TYPE AND SCREEN,30 DAYon ABO O Normal [facility] Comment on above: Order Comment: Speci men Type: BLOOD SPECIMENOrdering Facility: [facility] Address: [address] [place] [address] Performed By: #### T SCR30 ####[facility]LO[facility] BANKCLIA [id number] [place] [address] [place] Rh Nom (Bld) Positive Normal [facility] Comment on above: Order Comment: Speci men Type: BLOOD SPECIMENOrdering Facility: [facility] Address: [address] [place] [address] Performed By: #### T SCR30 ####[facility] BLOOD BANKCLIA [id number] [place] [address] [place] 25([place])D3 [facility] 25-hydroxyvitamin D3 [Mass/Vol] 36.4 ng/mL Normal 31.0-80.[address] [facility] [place] Comment on above: Order Comment: Speci men Type: BLOOD SPECIMEN Ordering Facility: [facility] Address: [address] [place], [place] [address] Performed By: #### 1 751-7, 1988-11, #### [facility] CLIA [id number] [address] [place] [address] [place] ALBUMINon 04-16-2025 Albumin [Mass/Vol] 4.7 g/dL 3.9 - 4.9 g/dL [facility] Albumin [facility] 025 Albumin [Mass/Vol] 4.7 g/dL Normal 3.9-4.[address] [facility] [place] Comment on above: Order Comment: Speci men Type: BLOOD SPECIMEN [facility]ing [facility]: [facility] Address: [facility] [place] [address] Performed By: #### 1 751-7, 1988-11, #### [facility] CLIA [id number] [address] [place], [place] [address] [place] Albumin [Mass/Vol]on 025 Interpretation and review of laboratory results Normal [facility] Basic metabolic 2000 panelon 04-16-2025 Anion gap [Moles/Vol] 11 mmol/L 8 - 15 mmol/L [facility] Calcium [Mass/Vol] 9.8 mg/dL 8.5 - 10. 2 mg/dL [facility] Chloride [Moles/Vol] 102 mmol/L 98 - 10 7 mmol/L [facility] CO2 [Moles/Vol] 25 mmol/L 22 - 30 mmol/L [facility] Creatinine [Mass/Vol] 0.72 mg/dL 0.58 - 0.96 mg/dL [facility] GFR/1.73 sq M.predicted among non-blacks MDRD (S/P/Bld) [Vol rate/Area] 116 mL/min/{1.73_m2} - PINF [facility] Comment on above: Estimated Glomerular Filtration Rate (eGFR) is calculated using the 2020 CKD-EPI creatinine equation. This equation utilizes serum creatinine, sex, and age as parameters. The creatinine assay has traceable calibration to isotope dilution-mass spectrometry. Refer to KDIGO guidelines for clinical interpretation. In patients with unstable renal function, e.g. those with acute kidney injury, the eGFR may not accurately reflect actual GFR. Glucose [Mass/Vol] 108 mg/dL High 74 - 99 mg/dL [facility] Comment on above: The [place] Diabete s Association (ADA) provides guidance for cutoff values for fasting glucose and random glucose. The ADA defines fasting as no caloric intake for at least 8 hours. Fasting plasma glucose results between 100 to 125 mg/dL indicate increased risk for diabetes (prediabetes). Fasting plasma glucose results greater than or equal to 126 mg/dL meet the criteria for diagnosis of diabetes. In the absence of unequivocal hyperglycemia, results should be confirmed by repeat testing. In a patient with classic symptoms of hyperglycemia or hyperglycemic crisis, random plasma glucose results greater than or equal to 200 mg/dL meet the criteria for diagnosis of diabetes. Reference: Standards of Medical Care in Diabetes 2016, [place] Diabetes Association. Diabetes Care. 2016.39(Suppl 1). Interpretation and review of laboratory results Abnormal [facility] Potassium [Moles/Vol] 3.8 mmol/L 3.7 - 5.1 mmol/L [facility] Sodium [Moles/Vol] 138 mmol/L 136 - 144 mmol/L [facility] Urea nitrogen [Mass/Vol] 11 mg/dL 7 - 21 mg/dL [facility] Anion gap [Moles/Vol] 11 mmol/L Normal 8-15 [facility] [place] Comment on above: Order Comment: Sammyi katie Type: BLOOD SPECIMEN [facility]ing [facility] Address: [address] [place] [address] Performed By: #### 1 751-7, 1988-11, 56088-0 #### [facility] CLIA [id number] [address] [place] [address] [place] Calcium [Mass/Vol] 9.8 mg/dL Normal 8.5-10.[address] [facility] [place] Comment on above: Order Comment: Speci men Type: BLOOD SPECIMEN [facility]ing [facility]: [facility] Address: [address] [place] [address] Performed By: #### 1 751-7, 1988-11, #### [facility] CLIA [id number] [address] [place] [address] [place] Chloride [Moles/Vol] 102 mmol/L Normal 98-107 [facility] Comment on above: Order Comment: Speci men Type: BLOOD SPECIMEN Ordering [facility]: [facility] Address: [address] [place] [address] Performed By: #### 1 751-7, 1988-11, #### [facility] CLIA [id number] [address] [place] [address] [place] CO2 [Moles/Vol] 25 mmol/L Normal 22-[address] [facility] [place] Comment on above: Order Comment: Speci men Type: BLOOD SPECIMEN Ordering [facility]: [facility] Address: [address] [place] [address] Performed By: #### 1 751-7, 1988-11, #### [facility] CLIA [id number] [address] [place] [address] [place] Creatinine [Mass/Vol] 0.72 mg/dL Normal 0.58-0.96 [facility] Comment on above: Order Comment: Speci men Type: BLOOD SPECIMEN Ordering Facility: [facility] Address: [address] [place] [address] Performed By: #### 1 751-7, 1988-11, #### [facility] CLIA [id number] [address] [place] [address] [place] eGFRcr SerPlBld CKD-EPI 2020 116 mL/min/1.73m??? Normal >=[address] [facility] [place] Comment on above: Order Comment: Speci men Type: BLOOD SPECIMEN Ordering Facility: [facility] Address: [address] [place] [address] Result Comment: Kath mated Glomerular Filtration Rate (eGFR) is calculated using the 2020 CKD-EPI creatinine equation. This equation utilizes serum creatinine, sex, and age as parameters. The creatinine assay has traceable calibration to isotope dilution-mass spectrometry. Refer to KDIGO guidelines for clinical interpretation. In patients with unstable renal function, e.g. those with acute kidney injury, the eGFR may not accurately reflect actual GFR. Performed By: #### 1 751-7, 1988-11, #### [facility] CLIA [id number] [address] [place] [address] [place] Glucose [Mass/Vol] 108 mg/dL High 74-[address] [facility] Comment on above: Order Comment: Radha wilson Type: BLOOD SPECIMEN Ordering Facility: [facility] Address: [address] [place] [address] Result Comment: The [place] Diabetes Association (ADA) provides guidance for cutoff values for fasting glucose and random glucose. The ADA defines fasting as no caloric intake for at least 8 hours. Fasting plasma glucose results between 100 to 125 mg/dL indicate increased risk for diabetes (prediabetes). Fasting plasma glucose results greater than or equal to 126 mg/dL meet the criteria for diagnosis of diabetes. In the absence of unequivocal hyperglycemia, results should be confirmed by repeat testing. In a patient with classic symptoms of hyperglycemia or hyperglycemic crisis, random plasma glucose results greater than or equal to 200 mg/dL meet the criteria for diagnosis of diabetes. Reference: Standards of Medical Care in Diabetes 2016, [place] Diabetes Association. Diabetes Care. 2016.39(Suppl 1). Performed By: #### 1 751-7, 1988-11, #### [facility] CLIA [id number] [address] [place] [address] [place] Potassium [Moles/Vol] 3.8 mmol/L Normal 3.7-5.1 [facility] [place] Comment on above: Order Comment: Radha wilson Type: BLOOD SPECIMEN Ordering Facility: [facility] Address: [address] [place] [address] Performed By: #### 1 751-7, 1988-11, #### [facility] CLIA [id number] [address] [place], [place] [address] [place] Sodium [Moles/Vol] 138 mmol/L Normal 136-[address] [facility] Comment on above: Order Comment: Speci men Type: BLOOD SPECIMEN Ordering Facility: [facility] Address: [address] [place] [address] Performed By: #### 1 751-7, #### [facility] CLIA [id number] [address] [place] [address] STATES [facility] Urea nitrogen [Mass/Vol] 11 mg/dL Normal 7-[address] [facility] Comment on above: Order Comment: Speci men Type: BLOOD SPECIMEN Ordering Facility: [facility] Address: [address] [place] [address] Performed By: #### 1 751-7, #### [facility] CLIA [id number] [address] [place] [address] [facility] CBC panel Auto (Bld)on 04-16 Erythrocyte distribution width (RBC) [Ratio] 12.2 % 11.5 - 15.0 % [facility] Hematocrit (Bld) [Volume fraction] 39.6 % 36.0 - 46.0 % [facility] Hemoglobin (Bld) [Mass/Vol] 13 g/dL 11.5 - 15.5 g/dL [facility] Interpretation and review of laboratory results Normal [facility] MCH (RBC) [Entitic mass] 28.3 pg 26.0 - 34.0 pg [facility] MCHC (RBC) [Mass/Vol] 32.8 g/dL 30.5 - 36.0 g/dL [facility] MCV (RBC) [Entitic vol] 86.3 fL 80.0 - 100.0 fL [facility] Nucleated RBC (Bld) [#/Vol] NINF [facility] Platelet mean volume (Bld) [Entitic vol] 9.5 fL 9.0 - 12.7 fL [facility] Platelets (Bld) [#/Vol] 224 10*3/uL [facility] RBC (Bld) [#/Vol] 4.59 10*6/uL 3.90 - 5.2 0 m/uL [facility] WBC (Bld) [#/Vol] 6.33 10*3/uL [facility] Erythrocyte distribution width (RBC) [Ratio] 12.2 % Normal 11.5-15.[address] [facility] Comment on above: Order Comment: Speci men Type: BLOOD SPECIMEN Ordering Facility: [facility] Address: [address] [place] [address] Performed By: #### 5 8410-2 #### [facility] CLIA [id number] [address] [place] [address] [place] Hematocrit (Bld) [Volume fraction] 39.6 % Normal 36.0-46.[address] [facility] [place] Comment on above: Order Comment: Speci men Type: BLOOD SPECIMEN Ordering Facility: [facility] Address: [address] [place] [address] Performed By: #### 5 8410-2 #### [facility] CLIA [id number] [address] [place] [address] [place] Hemoglobin (Bld) [Mass/Vol] 13.0 g/dL Normal 11.5-15.[address] [facility] [place] Comment on above: Order Comment: Speci men Type: BLOOD SPECIMEN Ordering Facility: [facility] Address: [address] [place] [address] Performed By: #### 5 8410-2 #### [facility] CLIA [id number] [address] [place] [address] [place] MCH (RBC) [Entitic mass] 28.3 pg Normal 26.0-34.[address] [facility] Comment on above: Order Comment: Speci men Type: BLOOD SPECIMEN Ordering Facility: [facility] Address: [address] [place] [address] Performed By: #### 5 8410-2 #### [facility] CLIA [id number] [address] [place] [address] [place] MCHC (RBC) [Mass/Vol] 32.8 g/dL Normal 30.5-36.0 [facility] [place] Comment on above: Order Comment: Speci men Type: BLOOD SPECIMEN Ordering Facility: [facility] Address: [address] [place] [address] Performed By: #### 5 8410-2 #### [facility] CLIA [id number] [address] [place] [address] [place] MCV (RBC) [Entitic vol] 86.3 fL Normal 80.0-100.0 [facility] Comment on above: Order Comment: Speci men Type: BLOOD SPECIMEN Ordering Facility: [facility] Address: [address] [place] [address] Performed By: #### 5 8410-2 #### [facility] CLIA [id number] [address] [place] [address] [place] Nucleated RBC (Bld) [#/Vol] 10*3/uL Normal <0.[address] [facility] Comment on above: Order Comment: Speci men Type: BLOOD SPECIMEN Ordering Facility: [facility] Address: [address] [place] [address] Performed By: #### 5 8410-2 #### [facility] CLIA [id number] [address] [place] [address] [place] Platelet mean volume (Bld) [Entitic vol] 9.5 fL Normal 9.0-12.[address] [facility] Comment on above: Order Comment: Speci men Type: BLOOD SPECIMEN Ordering Facility: [facility] Address: [address] [place] [address] Performed By: #### 5 8410-2 #### [facility] CLIA [id number] [address] [place] [address] [place] Platelets (Bld) [#/Vol] 224 10*3/uL Normal 150-[address] [facility] [place] Comment on above: Order Comment: Speci men Type: BLOOD SPECIMEN Ordering Facility: [facility] Address: [address] [place] [address] Performed By: #### 5 8410-2 #### [facility] CLIA [id number] [address] [place] [address] [place] RBC (Bld) [#/Vol] 4.59 10*6/uL Normal 3.90-5.[address] [facility] [place] Comment on above: Order Comment: Speci men Type: BLOOD SPECIMEN Ordering Facility: [facility] Address: [address] [id number] Performed By: #### 5 8410-2 #### [facility] CLIA [id number] [address] [place] [address] [place] WBC (Bld) [#/Vol] 6.33 10*3/uL Normal 3.70-11.[address] [facility] Comment on above: Order Comment: Radha wilson Type: BLOOD SPECIMEN Ordering Facility: [facility] Address: [address] [id number] Performed By: #### 5 8410-2 #### [facility] CLIA [id number] [address] [place] [address] [facility] CNOVon 04-16-2025 CNOV Office Visit (AGGENS4) POLY ARMANDO ([id number]) 1995 F Date Time Provider Department 04/16/25 3:30 PM EBONY BARRIOS4 During your visit today, we recorded the following information about you: Pulse Blood pressure Weight Height 96/minute 120/62 112.2 kg 1.6 m Codie Greene APRN.BOOM MASTER 04/16/2025 3:58 PM Signed Required monthly visits: 5 of 6 months Patient is interested in: RYGB EGD: 10/2024 - small hiatal hernia Pathology: Duodenum, biopsy: Duodenal mucosa with an intact villous architecture and intraepithelial lymphocytosis - can be associated with Losartan. Stomach, antrum, biopsy: Mild reactive gastropathy. No intestinal metaplasia or morphologic evidence of Helicobacter pylori organisms. Gastroesophageal junction, biopsy: Hyperplastic squamous esophageal mucosa with reactive epithelial changes and ulcer. No morphologic evidence of fungal organisms or viral cytopathic effect. Upper GI: defer to EGD RUQ US: 08/02/24 - hepatic steatosis HIDA: normal GB EF CT abd/pelvis (11/05/23): WNL aside from left renal stone Sleep Study: per pulmonology CXR: per pulmonology clearance EKG: per cardiac clearance H Pylori: negative Labs: complete - vit D def (repeat ordered) Nicotine use <12 months: No, negative Tox screen: Negative Antiplatelet/anticoag ulants: No Immunosuppressive therapy: No Estrogen therapy: No Evaluations: Psychology: cleared Nutrition: cleared Education class: ongoing Clearances: -Cardiology (cleared; OV 01/15) -Pulmonology (cleared; OV 01/22) -PCP Risk Calculator: VTE Risk: 0.16 - 0.25% ISS score: not diabetic Adverse Event score: NA Post-op Medications: Extended Lovenox: No Actigall: Yes PPI: Yes Tylenol: Yes Zofran: Yes PST orders placed Codie Greene APRN.Ebony Stearns MD 04/16/2025 3:58 PM Signed BARIATRIC SURGERY NEW PATIENT CONSULTATION HISTORY AND PHYSICAL Date: April 16, 2025 Time: 3:41 PM Poly Armando is a 29 year old year old female with obesity (Body mass index is 43.82 kg/m?.), NAFLD, pre-diabetes (metformin), HTN (Propranolol), tachycardia, GERD, depression and anxiety (pristiq), seizures (last 2017; no meds), hidradenitis suppurativa who presents to the clinic today for consideration of bariatric surgery. Today she reports doing well. She did have an episode of severe hives a few weeks ago for which she required steroids. She understands that in the future, after RYGB, she will not be able to have steroids. She has completed the bariatric program and presents today to consent. Her weight today is 247 pounds, which is down from her previous weight of 252 pounds. Per my last clinic note: She endorses a long history of GERD symptoms - starting during her second . She has symptoms sometimes when drinking only water. She takes Tums, OTC Zantac, and was recently started on Pepcid 40 mg daily - she feels this medication is helping her symptoms. She occasionally uses NSAIDs - not even 3 times per month She denies any personal history of DVT/PE, SC/CAD, TIA/CVA. She was diagnosed with pre-diabetes about 2 years ago and has been Metformin since that time. She started experiencing abdominal pain and gastritis-like symptoms along with bloating. She noticed that she was passing whole pills. She underwent many exams and workup, including EGD. Pathology was noted to demonstrate intraepithelial lymphocytes, which can be secondary to Losartan use. She was therefore changed from Losartan to Propranolol. She has daily episodes of dizziness for which she has undergone workup for vertigo. She states that workup demonstrated no cause of her symptoms. She does admit to not drinking enough fluids during the day. Social: denies x 3; denies SHS exposure PSHx: x 3; TL PAST MEDICAL HISTORY Diagnosis Date Headaches History of echocardiogram 05/16/2022 EF 65%. Normal scan History of Holter monitoring 02/10/2022 The patient completed a 24-hour Holter monitor demonstrating underlying sinus rhythm. Heart rate ranging from 65 to 158. Average heart rate 93. No evidence of atrial fibrillation or PACs. One PVC was appreciated. History of tilt table evaluation 08/29/2024 The test is negative for syncope. The test is negative for syncope. Overall stable blood pressures and heart rates were seen during upright tilt. she just felt dizzy upon the standing but the BP and HR stable. orthostatic vitals negative NAFLD (nonalcoholic fatty liver disease) Prediabetes Seizure (HCC) Uterine fibroid PAST SURGICAL HISTORY Procedure Laterality Date ANESTH, SECTION 2012,2014,2016 LIGATE F[place]OPIAN TUBE FAMILY HISTORY Problem Relation Age of Onset DVT Mother Hypertension Mother Hypertension Father Diabetes Father Cancer Son Colon Cancer Maternal Aunt Social History Tob (more content not included)... Normal [facility] 04-16-2025 CHRISTIAN Telephone (AGGENS4) POLY ARMANDO ([id number]) 1995 F Date Time Provider Department 04/16/25 EBONY BARRIOS4 During your visit today, we recorded the following information about you: Roverto Jones RN 04/16/2025 4:21 PM Signed Medical clearance letter sent/faxed to Wilson Burks APRN.CNP. Roverto Jones RN, BSN Bariatric Form Stripper Shelli James LPN 04/17/2025 3:48 PM Signed Medical Clearance letter scanned into chart. ANGEL Salinas Angela, APRN.CNP 04/17/2025 3:54 PM Signed Low risk Codie Greene APRN.CNP Allergies As of Date: 04/16/2025 Noted Allergy Reaction LISINOPRIL 01/20/2022 5 - Intolerance TAPE (ADHESIVE TAPE (ROSINS)) 08/14/2024 2 - Rash Date Reviewed: 04/16/2025 Reviewed by: Ebony Barrios MD - Fully Assessed Reason for Visit: Medical Clearance [1982] Prescriptions as of 04/17/2025 - desvenlafaxine ER (PRISTIQ) 25 mg 24 hr tablet Take 1 tablet by mouth once daily. Combine with Lexapro x 30 days then D.C - escitalopram oxalate (LEXAPRO) 20 mg tablet Take 1 tablet by mouth once daily. - predniSONE (DELTASONE) 20 mg tablet Take three tablets daily for three days, then two tablets daily for three days, then one tablets daily for three days. - metFORMIN (GLUCOPHAGE) 500 mg tablet Take 1 tablet by mouth two times a day with meals. - modafinil (PROVIGIL) 200 mg tablet Take 1 tablet by mouth once daily for 180 days. - propranolol ER (INDERAL LA) 160 mg Cs24 Take 1 capsule by mouth once daily. - famotidine (PEPCID) 40 mg tablet Take 1 tablet by mouth once daily. 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] 01/04/2021 Scoliosis concern [Z13.828] 01/04/2021 Seizure disorder (HCC) [G40.909] 01/04/2021 Migraine without aura, not intractable, with st*01/04/2021 Elevated blood pressure reading without diagnos*01/04/2021 12/05/2021 Generalized seizures (HCC) [R56.9] 03/03/2021 Tension headaches [G44.209] 03/03/2021 Headache, rebound [G44.40] 03/03/2021 ROBERT (generalized anxiety disorder) [F41.1] 11/18/2021 Hypertension, essential [I10] 11/18/2021 Hidradenitis suppurativa [L73.2] 11/18/2021 Acne vulgaris [L70.0] 11/18/2021 Lymph node enlargement [R59.9] 11/18/2021 Breathing difficult [R06.89] 01/18/2022 07/07/2022 Shakiness [R25.1] 01/18/2022 07/07/2022 Racing heart beat [R00.0] 01/18/2022 Elevated heart rate with elevated blood pressur*01/20/2022 Excessive daytime sleepiness [G47.19] 01/22/2025 Sleep-disordered breathing [G47.30] 01/22/2025 Letter Text Encounter Status:Closed by ROVERTO JONES on 04/16/25 [facility] 04-14-2025 CNPN Telephone (AGGENS4) POLY ARMANDO ([id number]) 1995 F Date Time Provider Department 04/14/25 EBONY BARRIOS AGGENS4 During your visit today, we recorded the following information about you: Heather Stveens 04/14/2025 9:59 AM Signed Lvm for pt to c/b. Pt is only month 5 out of 6. Will allow the consent with Dr. Barrios for Month 5 but will HAVE to have a VV with RD on April 24 in order to submit to insurance and start the packet for the approval process. Allergies As of Date: 04/14/2025 Noted Allergy Reaction LISINOPRIL 01/20/2022 5 - Intolerance TAPE (ADHESIVE TAPE (ROSINS)) 08/14/2024 2 - Rash Date Reviewed: 03/20/2025 Reviewed by: Petr Mandujano APRN.BOOM MASTER - Fully Assessed Reason for Visit: Patient Update [1234] Cmt: Consenting at Month 5 will need VV w/RD April 24 Prescriptions as of 04/14/2025 - desvenlafaxine ER (PRISTIQ) 25 mg 24 hr tablet Take 1 tablet by mouth once daily. Combine with Lexapro x 30 days then D.C - escitalopram oxalate (LEXAPRO) 20 mg tablet Take 1 tablet by mouth once daily. - predniSONE (DELTASONE) 20 mg tablet Take three tablets daily for three days, then two tablets daily for three days, then one tablets daily for three days. - metFORMIN (GLUCOPHAGE) 500 mg tablet Take 1 tablet by mouth two times a day with meals. - modafinil (PROVIGIL) 200 mg tablet Take 1 tablet by mouth once daily for 180 days. - propranolol ER (INDERAL LA) 160 mg Cs24 Take 1 capsule by mouth once daily. - famotidine (PEPCID) 40 mg tablet Take 1 tablet by mouth once daily. 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] 01/04/2021 Scoliosis concern [Z13.828] 01/04/2021 Seizure disorder (HCC) [G40.909] 01/04/2021 Migraine without aura, not intractable, with st*01/04/2021 Elevated blood pressure reading without diagnos*01/04/2021 12/05/2021 Generalized seizures (HCC) [R56.9] 03/03/2021 Tension headaches [G44.209] 03/03/2021 Headache, rebound [G44.40] 03/03/2021 ROBERT (generalized anxiety disorder) [F41.1] 11/18/2021 Hypertension, essential [I10] 11/18/2021 Hidradenitis suppurativa [L73.2] 11/18/2021 Acne vulgaris [L70.0] 11/18/2021 Lymph node enlargement [R59.9] 11/18/2021 Breathing difficult [R06.89] 01/18/2022 07/07/2022 Shakiness [R25.1] 01/18/2022 07/07/2022 Racing heart beat [R00.0] 01/18/2022 Elevated heart rate with elevated blood pressur*01/20/2022 Excessive daytime sleepiness [G47.19] 01/22/2025 Sleep-disordered breathing [G47.30] 01/22/2025 Encounter Status:Closed by HEATHER STEVENS on 04/14/25 [facility] CNPVicky 04-02-2025 CNPN Telephone (AGPSYACC) POLY ARMANDO ([id number]) 1995 F Date Time Provider Department 04/02/25 CARMELA MAE AGPSYACC During your visit today, we recorded the following information about you: Tricia Haile 04/02/2025 11:50 AM Signed Called to schedule new patient appointment, [facility] Tricia Haile April 02, 2025 11:50 AM Allergies As of Date: 04/02/2025 Noted Allergy Reaction LISINOPRIL 01/20/2022 5 - Intolerance TAPE (ADHESIVE TAPE (ROSINS)) 08/14/2024 2 - Rash Date Reviewed: 03/20/2025 Reviewed by: Petr Mandujano APRN.BOOM MASTER - Fully Assessed Reason for Visit: Appointment [186] Cmt: Called to schedule new patient appointment, [facility] Prescriptions as of 04/02/2025 - desvenlafaxine ER (PRISTIQ) 25 mg 24 hr tablet Take 1 tablet by mouth once daily. Combine with Lexapro x 30 days then D.C - escitalopram oxalate (LEXAPRO) 20 mg tablet Take 1 tablet by mouth once daily. - predniSONE (DELTASONE) 20 mg tablet Take three tablets daily for three days, then two tablets daily for three days, then one tablets daily for three days. - metFORMIN (GLUCOPHAGE) 500 mg tablet Take 1 tablet by mouth two times a day with meals. - modafinil (PROVIGIL) 200 mg tablet Take 1 tablet by mouth once daily for 180 days. - propranolol ER (INDERAL LA) 160 mg Cs24 Take 1 capsule by mouth once daily. - famotidine (PEPCID) 40 mg tablet Take 1 tablet by mouth once daily. 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] 01/04/2021 Scoliosis concern [Z13.828] 01/04/2021 Seizure disorder (HCC) [G40.909] 01/04/2021 Migraine without aura, not intractable, with st*01/04/2021 Elevated blood pressure reading without diagnos*01/04/2021 12/05/2021 Generalized seizures (HCC) [R56.9] 03/03/2021 Tension headaches [G44.209] 03/03/2021 Headache, rebound [G44.40] 03/03/2021 ROBERT (generalized anxiety disorder) [F41.1] 11/18/2021 Hypertension, essential [I10] 11/18/2021 Hidradenitis suppurativa [L73.2] 11/18/2021 Acne vulgaris [L70.0] 11/18/2021 Lymph node enlargement [R59.9] 11/18/2021 Breathing difficult [R06.89] 01/18/2022 07/07/2022 Shakiness [R25.1] 01/18/2022 07/07/2022 Racing heart beat [R00.0] 01/18/2022 Elevated heart rate with elevated blood pressur*01/20/2022 Excessive daytime sleepiness [G47.19] 01/22/2025 Sleep-disordered breathing [G47.30] 01/22/2025 Encounter Status:Closed by TRICIA HAILE on 04/02/25 [facility] CNOVon 03-26-2025 CNOV Office Visit (AGPSYHWW) POLY ARMANDO ([id number]) 1995 F Date Time Provider Department 03/26/25 9:00 AM LUZ CHRISTINA A AGPSYHWW During your visit today, we recorded the following information about you: Christina Brambila, SE[employer]SEM[employer]ER.[facility] 03/26/2025 9:41 AM Signed HPI: Poly Armando is a 29 year old female who presents for an initial evaluation. She has never been to a psychiatric provider before and was recommended for treatment by her bariatric provider. Her PCP started her on a medication a couple of years ago. First treated for depression in 18 after her son was diagnosed with Leukemia. Mood is depressed. More days than not she is feeling sad and having loss of interest. Motivation is non-existent. She struggles keeping up with basic responsibilities. Sleep is hit or miss. She has trouble falling asleep. She has trouble shutting down her mind. She sleeps about 5-6 hours at night. She needs more sleep. She naps every day; she will nap 2 hours a day. She feels it is a need at this point. Appetite is normal. No wish for or active plans to end her life. [place] [employer]IC[employer] SEVERITY RATING SCALE 1.) Wish to be : Have you wished you were or wished you could go to sleep and not wake up? NO 2.) Suicidal Thoughts: Have you actually had any thoughts of killing yourself? NO 6.) Suicide Behavior Question: Have you ever done anything, started to do anything, or prepared to do anything to end your life?NO Considers herself a worrier. Difficulty controlling the worry. Difficulty falling asleep at night. Focus and concentration is difficult at times. No restlessness. She has had panic attacks. They are triggered by an event. No panic disorder. No OCD. Bariatric has her diagnosed with an unspecified eating disorder. No PTSD. No evidence of park or hypomania. No psychosis. Treated fro Narcolepsy in the past. Did not do well on stimulants. On Provigil for possible narcolepsy. Biggest stressors, none. No eating disorder that she is aware. Bariatric program diagnosed with unspecified eating disorder. Past Psychiatric History: No inpatient psychiatric. No suicide attempts. No para suicide ideation. No therapist. Pristiq. On for a couple of years. No Lexapro. Zoloft. Quit working. On x a couple years. Wellbutrin. She had seizures. Cannot recall. Lamictal. Started having absence seizures. Started at age 18 and sporadically over the years. Provigil. She is having trouble staying awake during the day. No Effexor. No Cymbalta. Substance Use History: No nicotine. No alcohol. No illicit drug use. Current Substance Use: No nicotine. No alcohol. No illicit drug use. PAST MEDICAL HISTORY Diagnosis Date Headaches History of echocardiogram 05/16/2022 EF 65%. Normal scan History of Holter monitoring 02/10/2022 The patient completed a 24-hour Holter monitor demonstrating underlying sinus rhythm. Heart rate ranging from 65 to 158. Average heart rate 93. No evidence of atrial fibrillation or PACs. One PVC was appreciated. History of tilt table evaluation 08/29/2024 The test is negative for syncope. The test is negative for syncope. Overall stable blood pressures and heart rates were seen during upright tilt. she just felt dizzy upon the standing but the BP and HR stable. orthostatic vitals negative NAFLD (nonalcoholic fatty liver disease) Prediabetes Seizure (HCC) Uterine fibroid ALLERGIES Allergen Reactions Lisinopril Intolerance Tape [Adhesive Tape* Rash predniSONE (DELTASONE) 20 mg tablet Take three tablets daily for three days, then two tablets daily for three days, then one tablets daily for three days. metFORMIN (GLUCOPHAGE) 500 mg tablet Take 1 tablet by mouth two times a day with meals. modafinil (PROVIGIL) 200 mg tablet Take 1 tablet by mouth once daily for 180 days. propranolol ER (INDERAL LA) 160 mg Cs24 Take 1 capsule by mouth once daily. famotidine (PEPCID) 40 mg tablet Take 1 tablet by mouth once daily. desvenlafaxine ER (PRISTIQ) 100 mg 24 hr tablet Take 1 tablet by mouth once daily. Family Medical/Psychiatric History: FAMILY HISTORY Problem Relation Age of Onset DVT Mother Hypertension Mother Hypertension Father Diabetes Father Cancer Son Colon Cancer Maternal Aunt Mother. Depression and anxiety. Developmental/Social History: Social History Tobacco Use Smoking status: Never Smokeless tobacco: Never Vaping Use Vaping status: Never Used Substance Use Topics Alcohol use: Not Currently Drug use: Never Born and raised in [place], [place]. Raised by biological parents. Childhood was good, no abuse. She has three siblings; she is the youngest. Graduated high school in . No college. x 10 years. She has three sons. 11,9, and 7. She works part-time at [employer]. She loves her job. Legal History: None. Mental (more content not included)... Normal [facility] B. burgdorferi IgG and IgM p carlo (S)on 03-20-2025 B. burgdorferi IgG+IgM Qn (S) Negative Normal [place] [facility] Comment on above: Order Comment: Speci men Type: BLOOD SPECIMEN Ordering Facility: [facility] Address: [address] [place] [address] Result Comment: Rece nt infection with B. burgdorferi sensu lato cannot be excluded if the specimen collected within four weeks after the onset of signs and symptoms or within six weeks after a known tick exposure. Clinical and epidemiological correlation is required. Performed By: #### 3 [id number] #### [facility] CLIA [id number] [address] [place] [address] [place] CNOVon 03-20-2025 CNOV Office Visit (UCUPNO ) POLY ARMANDO ([id number]) 1995 F Date Time Provider Department 03/20/25 1:10 PM PETR MANDUJANO During your visit today, we recorded the following information about you: Temperature Pulse Respiration Blood pressure 99 degrees 89/minute 18/minute 129/76 Weight 112.2 kg Petr Mandujano APRN.CNP 03/20/2025 1:25 PM Signed 29 year old female presents with rash generalized for the past 3 day(s) that is gradually worsening. The patients reports no new exposures. The rash is described as itchy. Also adds she had a tick embedded in her left thigh. Voices she removed completely. Voices it was not engorged. Has tried various OTC medication without relief. OBJECTIVE:Rash PAST MEDICAL HISTORY Diagnosis Date Headaches History of echocardiogram 05/16/2022 EF 65%. Normal scan History of Holter monitoring 02/10/2022 The patient completed a 24-hour Holter monitor demonstrating underlying sinus rhythm. Heart rate ranging from 65 to 158. Average heart rate 93. No evidence of atrial fibrillation or PACs. One PVC was appreciated. History of tilt table evaluation 08/29/2024 The test is negative for syncope. The test is negative for syncope. Overall stable blood pressures and heart rates were seen during upright tilt. she just felt dizzy upon the standing but the BP and HR stable. orthostatic vitals negative NAFLD (nonalcoholic fatty liver disease) Prediabetes Seizure (HCC) Uterine fibroid Current Outpatient Medications Medication Sig Dispense Refill metFORMIN (GLUCOPHAGE) 500 mg tablet Take 1 tablet by mouth two times a day with meals. 60 tablet 2 modafinil (PROVIGIL) 200 mg tablet Take 1 tablet by mouth once daily for 180 days. 30 tablet 5 propranolol ER (INDERAL LA) 160 mg Cs24 Take 1 capsule by mouth once daily. 90 capsule 2 famotidine (PEPCID) 40 mg tablet Take 1 tablet by mouth once daily. 90 tablet 2 desvenlafaxine ER (PRISTIQ) 100 mg 24 hr tablet Take 1 tablet by mouth once daily. 90 tablet 1 No current facility-administered medications for this visit. Immunization History Administered Date(s) Administered influenza (IIV4) vaccine, age 6 mo - 64 yr, quadrivalent (AFLURIA, FLULAVAL, FLUZONE) 10/14/2021 influenza (IIV4) vaccine, age 6 mo - 64 yr, quadrivalent, PF (AFLURIA, FLUARIX, FLULAVAL, FLUZONE) 10/14/2021 Lisinopril and Tape [Adhesive Tape (Rosins)] Physical Exam Vitals reviewed. Constitutional: General: She is not in acute distress. Appearance: Normal appearance. She is well-developed. She is not ill-appearing, toxic-appearing or diaphoretic. HENT: Head: Normocephalic and atraumatic. Right Ear: External ear normal. Left Ear: External ear normal. Nose: Nose normal. Mouth/Throat: Mouth: Mucous membranes are moist. Eyes: General: No scleral icterus. Right eye: No discharge. Left eye: No discharge. Extraocular Movements: Extraocular movements intact. Conjunctiva/sclera: Conjunctivae normal. Cardiovascular: Rate and Rhythm: Regular rhythm. Pulmonary: Effort: Pulmonary effort is normal. No respiratory distress. Abdominal: General: Abdomen is flat. Musculoskeletal: Cervical back: Normal range of motion. Comments: Normal gait Skin: General: Skin is warm and dry. Comments: Scattered blotchy red rash, generalized. Neurological: General: No focal deficit present. Mental Status: She is alert and oriented to person, place, and time. Cranial Nerves: No cranial nerve deficit. Psychiatric: Mood and Affect: Mood normal. Behavior: Behavior normal. Thought Content: Thought content normal. Judgment: Judgment normal. ASSESSMENT/PLAN: 1. Hives - ICD9: 708.9, ICD10: L50.9 (primary diagnosis) - Likely viral or allergic etiology discussed with patient - Treatment with systemic steriods taper- see orders - Follow up if symptoms persist or worsen. - PREDNISONE 20 MG TABLET 2. Tick bite, unspecified site, initial encounter - ICD9: 919.4, E906.4, ICD10: W57.XXXA - Negative for erythema migrans, fatigue, myalgias, etc. - Will order testing to be safe. - LYME AB EARLY <=30 DAY SYMPTOMS Petr Mandujano APRN.BRIT Mandujano APRN.Petr Pinedo APRN.CNP 03/20/2025 1:25 PM Signed ASSESSMENT/PLAN: 1. Hives - ICD9: 708.9, ICD10: L50.9 (primary diagnosis) - Likely viral or allergic etiology discussed with patient - Treatment with systemic steriods taper- see orders - Follow up if symptoms persist or worsen. - PREDNISONE 20 MG TABLET 2. Tick bite, unspecified site, initial encounter - ICD9: 919.4, E906.4, ICD10: W57.XXXA - Negative for erythema migrans, fatigue, myalgias, etc. - Will order testing to be safe. - LYME AB EARLY <=30 DAY SYMPTOMS Petr Mandujano APRN.[place] MLT 03/20/2025 1:36 PM Signed Venipuncture performed to left antecubital. Number of tubes collected: 1 gold. Tolerat (more content not included)... [facility] Visit (AGGENS4) POLY ARMANDO ([id number]) 1995 F Date Time Provider Department 03/05/25 9:30 AM VILMA ROUSE AGGENS4 During your visit today, we recorded the following information about you: Pulse Blood pressure Weight Height 67/minute 120/76 110.2 kg 1.6 m Vilma Rouse APRN.BRIT 03/05/2025 10:33 AM Signed [place] [id number] [facility] [place] [id number] [facility] FOLLOW UP NOTE Recording using 8th Story software for draft documentation of the visit was discussed with the patient/authorized credit and collections representative; all questions welcomed and answered. Patient/authorized credit and collections representative agreed to proceed. HPI: Poly Armando a 29 year old female presents for medically supervised weight loss treatment of her obesity related co morbidities. This individual presents for month 4 of 6 required visits. Poly Armando weight has decreased since first visit in the program. Poly has been cleared for bariatric surgery by cardiology and pulmonology, with the final clearance pending from psychiatry. She is awaiting an appointment with Dr. Haque. Poly has been taking a multivitamin and an additional 5,000 IU of vitamin D daily for the past month to address a borderline vitamin D deficiency. She inquires about the role of vitamin D in bone health and mentions that she spends a significant amount of time outdoors. She is concerned about the upcoming departure of her primary care physician, who is leaving the practice this month to pursue a career in endocrinology. She has an appointment with a new primary care physician scheduled for August, but is uncertain about obtaining the necessary pre-surgical clearance in the interim. 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 Poly plans to take approximately 1.5 weeks off work following surgery, citing financial constraints and the lack of vacation benefits as factors limiting her ability to take extended leave. HISTORY REVIEWED (electronic chart updated): - medical history - medications - allergies PAST MEDICAL HISTORY Diagnosis Date - Headaches - History of echocardiogram 05/16/2022 EF 65%. Normal scan - History of Holter monitoring 02/10/2022 The patient completed a 24-hour Holter monitor demonstrating underlying sinus rhythm. Heart rate ranging from 65 to 158. Average heart rate 93. No evidence of atrial fibrillation or PACs. One PVC was appreciated. - History of tilt table evaluation 08/29/2024 The test is negative for syncope. The test is negative for syncope. Overall stable blood pressures and heart rates were seen during upright tilt. she just felt dizzy upon the standing but the BP and HR stable. orthostatic vitals negative - NAFLD (nonalcoholic fatty liver disease) - Prediabetes - Seizure (HCC) - Uterine fibroid Social: Social History Tobacco Use - Smoking status: Never - Smokeless tobacco: Never Vaping Use - Vaping status: Never Used Substance Use Topics - Alcohol use: Not Currently - Drug use: Never Medications: Current Outpatient Medications Medication Sig - metFORMIN (GLUCOPHAGE) 500 mg tablet Take 1 tablet by mouth two times a day with meals. - modafinil (PROVIGIL) 200 mg tablet Take 1 tablet by mouth once daily for 180 days. - propranolol ER (INDERAL LA) 160 mg Cs24 Take 1 capsule by mouth once daily. - famotidine (PEPCID) 40 mg tablet Take 1 tablet by mouth once daily. - desvenlafaxine ER (PRISTIQ) 100 mg 24 hr tablet Take 1 tablet by mouth once daily. No current facility-administered medications for this visit. REVIEW OF SYSTEMS Review of Systems Constitutional: Positive for weight loss. Negative for chills, fever and malaise/fatigue. HENT: Negative. Eyes: Negative. Respiratory: Negative for cough and shortness of breath. Cardiovascular: Negative for chest pain, palpitations and leg swelling. Gastrointestinal: Negative for abdominal pain, blood in stool, constipation, diarrhea, heartburn, melena, nausea and vomiting. Genitourinary: Negative. Musculoskeletal: Negative for myalgias. Skin: Negative. Neurological: Negative for dizziness and headaches. Psychiatric/Behaviora l: Negative. PHYSICAL EXAMINATION BP 120/76 Pulse 67 Ht 160 cm (5' 3) Wt 110.2 kg (243 lb) LMP 02/26/2025 (Exact Date) SpO2 99% BMI 43.05 kg/m? Physical Exam Vitals reviewed. Constitutional: General: She is not in acute distress. Appearance: Normal appearance. She is obese. She is not ill-appearing or toxic-appearing. (more content not included)... Normal [facility] CNOVon 02-27-2025 [facility] Office Visit (INTMWS ) POLY ARMANDO ([id number]) 1995 F Date Time Provider Department 02/27/25 9:00 AM WILSON WHARTON INTMWS During your visit today, we recorded the following information about you: Pulse Blood pressure Weight Last Period 81/minute 102/72 110.2 kg 02/26/25 Wilson Wharton APRN.BOOM MASTER 04/17/2025 10:42 AM Addendum SUBJECTIVE Poly Armando is a 29 year old female here today for a check up on her medical problems. Chief Complaint Patient presents with: F/U 3 Month HPI Poly Armando is a 29 year old female. She is an established patient and here today for follow up. Last seen 11/28. Discussed concerns of weight. Referred to discuss options with bariatrics team. Working towards Joan-en-y gastric bypass. Working on weight loss. Weight down a few pounds. Not having frequent episodes of dizziness and palpitations. Mood is okay, not great but some better. Going to follow up with psychiatry per bariatric psychologist recommendation. Still with daytime sleepiness. Pulmonary had ordered Provigil but she never was able to fill it. Her medications were reviewed today and her list is now up to date. Medications Current Outpatient Medications Medication Sig propranolol ER (INDERAL LA) 160 mg Cs24 Take 1 capsule by mouth once daily. famotidine (PEPCID) 40 mg tablet Take 1 tablet by mouth once daily. metFORMIN (GLUCOPHAGE) 500 mg tablet Take 1 tablet by mouth two times a day with meals. desvenlafaxine ER (PRISTIQ) 100 mg 24 hr tablet Take 1 tablet by mouth once daily. modafinil (PROVIGIL) 200 mg tablet Take 1 tablet by mouth once daily for 180 days. No current facility-administered medications for this visit. ALLERGIES Allergen Reactions Lisinopril Intolerance Tape [Adhesive Tape* Rash ACTIVE PROBLEM LIST Excessive Daytime Sleepiness - 01/22/2025 Sleep-Disordered Breathing - 01/22/2025 Elevated Heart Rate With Elevated Blood Pressure and Diagnosis of Hypertension - 01/20/2022 Racing Heart Beat - 01/18/2022 Robert (Generalized Anxiety Disorder) - 11/18/2021 Hypertension, Essential - 11/18/2021 Comment: Hypertensive emergency or severe asymptomatic hypertension absent. No evidence of target organ damage. Lifestyle: never smoker; no use of EtOH Diet: she cooks at home; lots of pasta; she enjoys vegetables and fruits Exercise: no regimen; maybe 1 walk a day with the dogs Hidradenitis Suppurativa - 11/18/2021 Acne Vulgaris - 11/18/2021 Lymph Node Enlargement - 11/18/2021 Generalized Seizures (Hcc) - 03/03/2021 Tension Headaches - 03/03/2021 Headache, Rebound - 03/03/2021 Shortening, Leg, Congenital, Left - 01/04/2021 Scoliosis Concern - 01/04/2021 Seizure Disorder (Hcc) - 01/04/2021 Migraine Without Aura, Not Intractable, With Status Migrainosus - 01/04/2021 Obesity, Class III, BMI >= 40 - 01/03/2021 Social History Tobacco Use Smoking status: Never Smokeless tobacco: Never Vaping Use Vaping status: Never Used Substance Use Topics Alcohol use: Not Currently Drug use: Never Review of Systems Constitutional: Negative. Respiratory: Negative. Cardiovascular: Negative for chest pain and leg swelling. OBJECTIVE BP 102/72 Pulse 81 Wt 242 lb 15.2 oz (110.2kg) SpO2 99% LMP 02/26/2025 Physical Exam Vitals and nursing note reviewed. Constitutional: General: She is awake. She is not in acute distress. Appearance: Normal appearance. She is well-developed and well-groomed. She is not ill-appearing, toxic-appearing or diaphoretic. HENT: Head: Normocephalic. Right Ear: External ear normal. Left Ear: External ear normal. Nose: Nose normal. Eyes: General: Vision grossly intact. Conjunctiva/sclera: Conjunctivae normal. Pupils: Pupils are equal, round, and reactive to light. Neck: Vascular: No JVD. Trachea: Trachea normal. Cardiovascular: Rate and Rhythm: Normal rate and regular rhythm. Pulses: Normal pulses. Heart sounds: Normal heart sounds. No murmur heard. Pulmonary: Effort: Pulmonary effort is normal. No accessory muscle usage, prolonged expiration or respiratory distress. Breath sounds: Normal breath sounds. Musculoskeletal: Cervical back: Neck supple. Skin: General: Skin is warm and dry. Capillary Refill: Capillary refill takes less than 2 seconds. Neurological: General: No focal deficit present. Mental Status: She is alert and oriented to person, place, and time. Mental status is at baseline. Psychiatric: Attention and Perception: Attention and perception normal. Mood and Affect: Mood and affect normal. Speech: Speech normal. Behavior: Behavior normal. Behavior is cooperative. Thought Content: Thought content normal. Cognition and Memory: Cognition and memory normal. Judgment: Judgment normal. ASSESSMENT/PLAN: 1. Excessive daytime sleepiness - ICD9: 780.54, ICD10: G47.19 (primary diagnosis) (more content not included)... [facility] ([id number]) 1995 F Date Time Provider Department 01/23/25 SHELLI HAQUE4 During your visit today, we recorded the following information about you: Pacheco Ahmadi 01/23/2025 10:10 AM Signed LVM for patient to call back to schedule: MMPI Testing 3 Month Follow Up [employer] message sent to patient. Allergies As of Date: 01/23/2025 Noted Allergy Reaction LISINOPRIL 01/20/2022 5 - Intolerance TAPE (ADHESIVE TAPE (ROSINS)) 08/14/2024 2 - Rash Date Reviewed: 01/22/2025 Reviewed by: Ira May APRN.BOOM MASTER - Fully Assessed Prescriptions as of 01/23/2025 - modafinil (PROVIGIL) 200 mg tablet Take 1 tablet by mouth once daily for 180 days. - propranolol ER (INDERAL LA) 160 mg Cs24 Take 1 capsule by mouth once daily. - famotidine (PEPCID) 40 mg tablet Take 1 tablet by mouth once daily. - metFORMIN (GLUCOPHAGE) 500 mg tablet Take 1 tablet by mouth two times a day with meals. - desvenlafaxine ER (PRISTIQ) 100 mg 24 hr tablet Take 1 tablet by mouth once daily. 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] 01/04/2021 Scoliosis concern [Z13.828] 01/04/2021 Seizure disorder (HCC) [G40.909] 01/04/2021 Migraine without aura, not intractable, with st*01/04/2021 Elevated blood pressure reading without diagnos*01/04/2021 12/05/2021 Generalized seizures (HCC) [R56.9] 03/03/2021 Tension headaches [G44.209] 03/03/2021 Headache, rebound [G44.40] 03/03/2021 ROBERT (generalized anxiety disorder) [F41.1] 11/18/2021 Hypertension, essential [I10] 11/18/2021 Hidradenitis suppurativa [L73.2] 11/18/2021 Acne vulgaris [L70.0] 11/18/2021 Lymph node enlargement [R59.9] 11/18/2021 Breathing difficult [R06.89] 01/18/2022 07/07/2022 Shakiness [R25.1] 01/18/2022 07/07/2022 Racing heart beat [R00.0] 01/18/2022 Elevated heart rate with elevated blood pressur*01/20/2022 Excessive daytime sleepiness [G47.19] 01/22/2025 Sleep-disordered breathing [G47.30] 01/22/2025 Encounter Status:Closed by PACHECO AHMADI on 01/23/25 [facility] CNOVon 01-22-2025 CNOV Office Visit (MAGNOLIAOVNE) POLY ARMANDO ([id number]) 1995 F Date Time Provider Department 01/22/25 8:30 AM IRA MAY During your visit today, we recorded the following information about you: Pulse Blood pressure Weight Height 83/minute 117/79 112.4 kg 1.6 m Ira May APRN.CNP 01/22/2025 8:44 AM Signed [facility] Department of Pulmonary AND Sleep Medicine Ira May APRN.CNP Pulmonary Consult Note REFERRING PROVIDER: No ref. provider found Poly Cardona Armando is a 29 year old female who is here for evaluation of excessive daytime sleepiness, and surgical clearance. History of Illness: pt is here for clearance for bariatric surgery. Pt had HSAT in 2022, that showed AHI of only 3, so mild sleep-disordered breathing, and snoring. Does not qualify for CPAP treatment. Pt says he weight has not changed much since then. No further testing at this time. Pt does have a lot of daytime sleepiness. She says she has always taken an afternoon nap, even when she was in school growing up. But now she has 3 kids, and sometimes she gets 4-6 hours of sleep at night, and she takes a nap after she drops off kids to school, before work, and then if she has time after work she also takes a nap. Discussed trying to adjust bedtime routine, and getting a solid 7-8 hours at night, and cutting back on daytime naps. She says she has tried stimulants in the past and did not like how they made her feel. Will try to order modafinil and see if this is approved, and if that helps her any. HISTORY PAST MEDICAL HISTORY Diagnosis Date Headaches History of echocardiogram 05/16/2022 EF 65%. Normal scan History of Holter monitoring 02/10/2022 The patient completed a 24-hour Holter monitor demonstrating underlying sinus rhythm. Heart rate ranging from 65 to 158. Average heart rate 93. No evidence of atrial fibrillation or PACs. One PVC was appreciated. History of tilt table evaluation 08/29/2024 The test is negative for syncope. The test is negative for syncope. Overall stable blood pressures and heart rates were seen during upright tilt. she just felt dizzy upon the standing but the BP and HR stable. orthostatic vitals negative NAFLD (nonalcoholic fatty liver disease) Prediabetes Seizure (HCC) Uterine fibroid PAST SURGICAL HISTORY Procedure Laterality Date ANESTH, SECTION 2012,2014,2017 LIGATE FALLOPIAN TUBE Social History Tobacco Use Smoking status: Never Smokeless tobacco: Never Vaping Use Vaping status: Never Used Substance Use Topics Alcohol use: Not Currently Drug use: Never ALLERGIES: ALLERGIES Allergen Reactions Lisinopril Intolerance Tape [Adhesive Tape* Rash MEDICATIONS: Current Outpatient Medications Medication Sig propranolol ER (INDERAL LA) 160 mg Cs24 Take 1 capsule by mouth once daily. famotidine (PEPCID) 40 mg tablet Take 1 tablet by mouth once daily. metFORMIN (GLUCOPHAGE) 500 mg tablet Take 1 tablet by mouth two times a day with meals. desvenlafaxine ER (PRISTIQ) 100 mg 24 hr tablet Take 1 tablet by mouth once daily. modafinil (PROVIGIL) 200 mg tablet Take 1 tablet by mouth once daily for 180 days. No current facility-administered medications for this visit. IMMUNIZATIONS: Immunization History Administered Date(s) Administered influenza (IIV4) vaccine, age 6 mo - 64 yr, quadrivalent (AFLURIA, FLULAVAL, FLUZONE) 10/14/2021 influenza (IIV4) vaccine, age 6 mo - 64 yr, quadrivalent, PF (AFLURIA, FLUARIX, FLULAVAL, FLUZONE) 10/14/2021 REVIEW OF SYSTEMS Review of Systems Constitutional: Positive for fatigue. Negative for chills, diaphoresis, fever and unexpected weight change. HENT: Negative for congestion, dental problem, ear pain, postnasal drip, rhinorrhea, sinus pressure, sinus pain, sore throat and trouble swallowing. Eyes: Negative for photophobia, pain, discharge, itching and visual disturbance. Respiratory: Negative for apnea, cough, chest tightness, shortness of breath, wheezing and stridor. Cardiovascular: Negative for chest pain, palpitations and leg swelling. Gastrointestinal: Negative for abdominal distention, abdominal pain, blood in stool, constipation, diarrhea, nausea and vomiting. Endocrine: Negative for polydipsia, polyphagia and polyuria. Genitourinary: Negative for difficulty urinating, dysuria, flank pain and hematuria. Musculoskeletal: Negative for arthralgias, gait problem, joint swelling and myalgias. Skin: Negative for color change, pallor, rash and wound. Allergic/Immunologic: Negative for environmental allergies and food allergies. Neurological: Negative for dizziness, syncope, weakness, light-headedness, numbness and headaches. Hematological: Negative for adenopathy. Does not bruise/bleed easily. Psychiatric/Behaviora l: Negative for agitation, behavioral problems, c (more content not included)... [facility] 01-22-2025 [facility] Telephone (MAGNOLIAOVNEW) POLY ARMANDO ([id number]) 1995 F Date Time Provider Department 01/22/25 IRA MAY During your visit today, we recorded the following information about you: Lei Izaguirre OCCA 01/22/2025 8:36 AM Signed Modafinil PA sent via [employer] Tian IzaguirreLei seymour OCCA 01/28/2025 4:08 PM Signed Note from payer: CaseId:[id number];Statu s:Denied;Review Type:Prior Auth;Appeal Information: Attention:ATTN: CLINICAL APPEALS DEPARTMENT [employer] [address] [address],[place], [place],[address] ; Important - Please read the below note on eAppeals: Please reference the denial letter for information on the rights for an appeal, rationale for the denial, and how to submit an appeal including if any information is needed to support the appeal. Note about urgent situations - Generally, an urgent situation is one which, in the opinion of the provider, the health of the patient may be in serious jeopardy or may experience pain that cannot be adequately controlled while waiting for a decision on the appeal.; Payer: [employer] [phone] Electronic appeal: Supported Allergies As of Date: 01/22/2025 Noted Allergy Reaction LISINOPRIL 01/20/2022 5 - Intolerance TAPE (ADHESIVE TAPE (ROSINS)) 08/14/2024 2 - Rash Date Reviewed: 01/22/2025 Reviewed by: Ira May APRN.BOOM MASTER - Fully Assessed Reason for Visit: Form Stripper - Other [[id number]] Cmt: Modafinil PA Prescriptions as of 01/28/2025 - modafinil (PROVIGIL) 200 mg tablet Take 1 tablet by mouth once daily for 180 days. - propranolol ER (INDERAL LA) 160 mg Cs24 Take 1 capsule by mouth once daily. - famotidine (PEPCID) 40 mg tablet Take 1 tablet by mouth once daily. - metFORMIN (GLUCOPHAGE) 500 mg tablet Take 1 tablet by mouth two times a day with meals. - desvenlafaxine ER (PRISTIQ) 100 mg 24 hr tablet Take 1 tablet by mouth once daily. 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] 01/04/2021 Scoliosis concern [Z13.828] 01/04/2021 Seizure disorder (HCC) [G40.909] 01/04/2021 Migraine without aura, not intractable, with st*01/04/2021 Elevated blood pressure reading without diagnos*01/04/2021 12/05/2021 Generalized seizures (HCC) [R56.9] 03/03/2021 Tension headaches [G44.209] 03/03/2021 Headache, rebound [G44.40] 03/03/2021 ROBERT (generalized anxiety disorder) [F41.1] 11/18/2021 Hypertension, essential [I10] 11/18/2021 Hidradenitis suppurativa [L73.2] 11/18/2021 Acne vulgaris [L70.0] 11/18/2021 Lymph node enlargement [R59.9] 11/18/2021 Breathing difficult [R06.89] 01/18/2022 07/07/2022 Shakiness [R25.1] 01/18/2022 07/07/2022 Racing heart beat [R00.0] 01/18/2022 Elevated heart rate with elevated blood pressur*01/20/2022 Excessive daytime sleepiness [G47.19] 01/22/2025 Sleep-disordered breathing [G47.30] 01/22/2025 Encounter Status:Closed by LEI [facility]ZAGUIRRE [facility] Visit (JAMIN ) POLY ARMANDO ([id number]) 1995 F Date Time Provider Department 01/15/25 11:00 AM NIKOLAS CARBAJAL During your visit today, we recorded the following information about you: Pulse Blood pressure Weight Height 54/minute 124/88 111.9 kg 1.6 m Nikolas Carbajal MD 01/15/2025 11:47 AM Signed Referring Provider: No ref. provider found Date: January 15, 2025 Chief Complaint: CARD New Patient Consult (Pre op clearance for bariatric surgery) HISTORY OF PRESENT ILLNESS: Poly Armando presents for CARD New Patient Consult (Pre op clearance for bariatric surgery). 29-year-old young lady with a history of hypertension and diabetes referred for preoperative evaluation before planned bariatric surgery. Without antecedent history of cardiac disease she has undergone previous 2-week monitoring and echocardiographic assessment. Monitor revealed no significant rhythm disturbances and her echocardiogram demonstrated only what appeared to be a somewhat aneurysmal interatrial septum. She has no family history of cardiac disease and denies limitation of exercise tolerance, unusual dyspnea on exertion, symptoms of significant dysrhythmia, and chest discomfort. She has clearly pursued at activities greater than 4 METS, walking on the treadmill at 4 miles an hour for 30 minutes and mowing grass with a push mower. ALLERGIES Allergen Reactions Lisinopril Intolerance Tape [Adhesive Tape* Rash PAST MEDICAL HISTORY: PAST MEDICAL HISTORY Diagnosis Date Headaches History of echocardiogram 05/16/2022 EF 65%. Normal scan History of Holter monitoring 02/10/2022 The patient completed a 24-hour Holter monitor demonstrating underlying sinus rhythm. Heart rate ranging from 65 to 158. Average heart rate 93. No evidence of atrial fibrillation or PACs. One PVC was appreciated. History of tilt table evaluation 08/29/2024 The test is negative for syncope. The test is negative for syncope. Overall stable blood pressures and heart rates were seen during upright tilt. she just felt dizzy upon the standing but the BP and HR stable. orthostatic vitals negative NAFLD (nonalcoholic fatty liver disease) Prediabetes Seizure (HCC) Uterine fibroid PAST SURGICAL HISTORY Procedure Laterality Date ANESTH, SECTION 2012,2014,2017 LIGATE FALLOPIAN TUBE FAMILY HISTORY Problem Relation Age of Onset DVT Mother Hypertension Mother Hypertension Father Diabetes Father Cancer Son Colon Cancer Maternal Aunt SOCIAL HISTORY: Tobacco Use: Never Alcohol Use: Not Currently Drug Use: Never Employer And Job Title: None on file Years Of Education Completed: Not specified Marital Status: with 3 children MEDICATIONS: Current Outpatient Medications Medication Sig propranolol ER (INDERAL LA) 160 mg Cs24 Take 1 capsule by mouth once daily. famotidine (PEPCID) 40 mg tablet Take 1 tablet by mouth once daily. metFORMIN (GLUCOPHAGE) 500 mg tablet Take 1 tablet by mouth two times a day with meals. desvenlafaxine ER (PRISTIQ) 100 mg 24 hr tablet Take 1 tablet by mouth once daily. No current facility-administered medications for this visit. I have personally reviewed the patients past medical history including social, family, surgical, diagnostics, and medications. REVIEW OF SYSTEMS: Review of Systems Constitutional: Negative for chills and fatigue. Respiratory: Negative for chest tightness and shortness of breath. Cardiovascular: Negative for chest pain, palpitations and leg swelling. Neurological: Negative for dizziness, syncope, weakness and light-headedness. Hematological: Does not bruise/bleed easily. Psychiatric/Behaviora l: Negative for confusion and hallucinations. PHYSICAL EXAMINATION: BP 124/88 (BP Site: Left Arm, BP Position: Sitting) Pulse (!) 54 Ht 160 cm (5' 3) Wt 111.9 kg (246 lb 11.1 oz) LMP 10/31/2024 (Exact Date) BMI 43.70 kg/m? Pleasant endomorphic female. EOMs full, sclerae and conjunctiva normal. Thyroid normal palpation. Carotid upstrokes normal without bruit. Chest is clear to auscultation. PMI is normal. S1-S2 normal without murmurs or gallops. Obese abdomen without masses or bruits. Pedal pulses intact with trace lower extremity edema. Alert and oriented x 3 and answers questions appropriately. Last 3 Encounter BP Readings: Date: BP: 01/08/2025 118/68 12/17/2024 118/70 11/28/2024 118/84 Last 3 Encounter Pulse Readings: Date: Pulse: 01/08/2025 64 12/17/2024 81 11/28/2024 72 Last 3 Encounter Wt Readings: Date: Wt: 01/08/2025 112 kg (247 lb) 12/22/2024 114.3 kg (252 lb) 12/17/2024 114.3 kg (252 lb) LABS: Glucose (mg/dL) Date Value 01/08/2025 140 03/08/2023 113 Potassium (mmol/L) Date Value 01/08/2025 4.4 03/08/2023 4.8 Sodium (mmol/L) Date Value 01/08/2025 139 03/08/2023 138 Chloride (mmol/L) Date Value (more content not included)... Normal [facility] COMPLETEon 01-15-2025 ECG COMPLETE Ventricular Rate : 5 4 BPM Atrial Rate : 54 BPM P-R Interval : 164 ms QRS Duration : 100 ms Q-T Interval : 412 ms QTC Calculation(Bazett) : 390 ms Calculated P [place] : 58 degrees Calculated R [place] : 51 degrees Calculated T [place] : 51 degrees Sinus bradycardia Otherwise normal ECG When compared with ECG of 07-Aug-2016 13:43, MANUAL COMPARISON REQUIRED PREVIOUS ECG IS INCOMPATIBLE Confirmed by ROLF MIX DO ([id number]) on 01/15/2025 6:45:11 PM NAME : POLY ARMANDO PID : [id number] : 1995 Gender : Female Race : ORD : [id number] Procedure Date : Jan 15 2025 11:29:22 Edit Date : Jan 15 2025 18:45:14 Diagnosis: Sinus bradycardia Otherwise normal ECG When compared with ECG of 07-Aug-2016 13:43, MANUAL COMPARISON REQUIRED PREVIOUS ECG IS INCOMPATIBLE Confirmed by ROLF MIX DO ([id number]) on 01/15/2025 6:45:11 PM Test Reason : HCS Location : 2 : [place] Overread By : ROLF MIX DO Edited By : ROLF MIX DO Referred By : , Acquired by : , Normal [facility] 25(OH)D3 SerPl-mCncon 2024 25-hydroxyvitamin D3 [Mass/Vol] 29.8 ng/mL Low 31.0-80.[address] [facility] [place] Comment on above: Order Comment: Radha wilson Type: BLOOD SPECIMEN Ordering Facility: [facility] Address: [address] [place] [address] Performed By: #### 1 989-3, 82243-5 #### [facility] CLIA [id number] [address] [place] [address] [place] Lipid 1996 panelon 5 Cholesterol [Mass/Vol] 163 mg/dL Normal <200 [facility] [place] Comment on above: Order Comment: Sammyi men Type: BLOOD SPECIMEN Ordering Facility: [facility] Address: [address] [place] [address] Result Comment: <200 mg/dL, Desirable 200-239 mg/dL, Borderline high >239 mg/dL, High Performed By: #### 1 989-3, 26413-6 #### [facility] CLIA [id number] [address] [place] [address] [facility] Cholesterol in HDL [Mass/Vol] 45 mg/dL Normal >[address] [facility] [place] Comment on above: Order Comment: Radha wilson Type: BLOOD SPECIMEN Ordering Facility: [facility] Address: [address] [place] [address] Result Comment: 40-5 9 mg/dL, Acceptable >59 mg/dL, High: Negative risk factor for coronary heart disease <40 mg/dL, Low: Positive risk factor for coronary heart disease Performed By: #### 1 989-3, 72956-3 #### [facility] CLIA [id number] [address] [place] [address] [facility] Cholesterol in LDL [Mass/Vol] 91 mg/dL Normal <[address] [facility] [place] Comment on above: Order Comment: Radha [facility] Type: BLOOD SPECIMEN Ordering Facility: [facility] Address: [address] [place] [address] Result Comment: <100 mg/dL, Optimal 100-129 mg/dL, Near optimal/above optimal 130-159 mg/dL, Borderline high 160-189 mg/dL, High >189 mg/dL, Very high Secondary prevention optimal LDL Cholesterol levels are recommended to be < 70 mg/dL Performed By: #### 1 989-3, 19681-0 #### [facility] CLIA [id number] [address] [place] [address] [facility] Cholesterol in LDL/Cholesterol in HDL [Mass ratio] 2.02 {ratio} Normal <2.[address] [facility] [place] Comment on above: Order Comment: [facility] Type: BLOOD SPECIMEN Ordering Facility: [facility] Address: [address] [place] [address] Result Comment: Refe javedce: 1. National Cholesterol Education Program ATP III Guideline At-A-Glance Quick Desk Reference: National Heart, Lung, and Blood [place]. National Institutes of Health. 2001: NIH Publication No. 01-3305. 2. An International Atherosclerosis Society position paper: global recommendations for the management of dyslipidemia: executive summary, Atherosclerosis. 2014: 232(2):410-413. Performed By: #### 1 989-3, 54949-3 #### [facility] CLIA [id number] [address] [place] [address] [place] Cholesterol in VLDL [Mass/Vol] 27 mg/dL Normal <[address] [facility] Comment on above: Order Comment: Speci men Type: BLOOD SPECIMEN Ordering Facility: [facility] Address: [address] [place] [address] Performed By: #### 1 989-3, 92614-5 #### [facility] CLIA [id number] [address] [place] [address] [place] Cholesterol non HDL [Mass/Vol] 118 mg/dL Normal <[address] [facility] [place] [place] Comment on above: Order Comment: Speci men Type: BLOOD SPECIMEN Ordering Facility: [facility] Address: [address] [place] [address] Result Comment: <130 mg/dL, Optimal 130-159 mg/dL, Near optimal/above optimal 160-189 mg/dL, Borderline high 190-219 mg/dL, High >219 mg/dL, Very high Secondary prevention optimal non HDL Cholesterol levels are recommended to be <100 mg/dL Performed By: #### 1 989-3, 52551-6 #### [facility] CLIA [id number] [address] [place] [address] [place] Cholesterol.total/Cassandra sterol in HDL [Mass ratio] 3.62 {ratio} Normal <5.[address] [facility] [place] [place] Comment on above: Order Comment: Speci men Type: BLOOD SPECIMEN Ordering Facility: [facility] Address: [address] [id number] Performed By: #### 1 989-3, 78766-6 #### [facility] CLIA [id number] [address] [place] [address] [place] FASTING TIME 12 1/[address] [facility] [place] Comment on above: Order Comment: Speci men Type: BLOOD SPECIMEN Ordering Facility: [facility] Address: [address] [place] [address] Performed By: #### 1 989-3, 42047-8 #### [facility] CLIA [id number] [address] [place] [address] [place] Triglyceride [Mass/Vol] 134 mg/dL Normal <150 [facility] Comment on above: Order Comment: Speci men Type: BLOOD SPECIMEN Ordering Facility: [facility] Address: [address] [place] [address] Result Comment: <150 mg/dL, Normal 150-199 mg/dL, Borderline high 200-499 mg/dL, High >499 mg/dL, Very high Performed By: #### 1 989-3, 67540-9 #### [facility] CLIA [id number] [address] [place] [address] [place] 25(OH)D3 [facility] 25-hydroxyvitamin D3 [Mass/Vol] 30.7 ng/mL Low 31.0-80.[address] [facility] [place] Comment on above: Order Comment: Speci men Type: BLOOD SPECIMEN Ordering Facility: [facility] Address: [address] [place] [address] Performed By: #### 5 8410-2 #### [facility] CLIA [id number] [address] [place] [address] [place] 25-hydroxyvitamin D3 [Mass/V ol]on 01-08-2025 Interpretation and review of laboratory results Abnormal [facility] CBC panel Auto (Bld)on 01-08 Erythrocyte distribution width (RBC) [Ratio] 11.9 % 11.5 - 15.0 % [facility] Hematocrit (Bld) [Volume fraction] 40.9 % 36.0 - 46.0 % [facility] Hemoglobin (Bld) [Mass/Vol] 13.3 g/dL 11.5 - 15.5 g/dL [facility] Interpretation and review of laboratory results Normal [facility] MCH (RBC) [Entitic mass] 27.9 pg 26.0 - 34.0 pg [facility] MCHC (RBC) [Mass/Vol] 32.5 g/dL 30.5 - 36.0 g/dL [facility] MCV (RBC) [Entitic vol] 85.7 fL 80.0 - 100.0 fL [facility] Nucleated RBC (Bld) [#/Vol] NINF [facility] Platelet mean volume (Bld) [Entitic vol] 9.3 fL 9.0 - 12.7 fL [facility] Platelets (Bld) [#/Vol] 269 10*3/uL [facility] RBC (Bld) [#/Vol] 4.77 10*6/uL 3.90 - 5.2 0 m/uL [facility] WBC (Bld) [#/Vol] 7.23 10*3/uL [facility] Erythrocyte distribution width (RBC) [Ratio] 11.9 % Normal 11.5-15.[address] [facility] Comment on above: Order Comment: Speci men Type: BLOOD SPECIMEN Ordering Facility: [facility] Address: [address] [place] [address] Performed By: #### 2 458-8 #### [facility] CLIA [id number] [address] [place] [address] [place] Hematocrit (Bld) [Volume fraction] 40.9 % Normal 36.0-46.[address] [facility] [place] [place] Comment on above: Order Comment: Speci men Type: BLOOD SPECIMEN Ordering Facility: [facility] Address: [address] [place] [address] Performed By: #### 2 458-8 #### [facility] CLIA [id number] [address] [place] [address] [place] Hemoglobin (Bld) [Mass/Vol] 13.3 g/dL Normal 11.5-15.[address] [facility] [place] Comment on above: Order Comment: Speci men Type: BLOOD SPECIMEN Ordering Facility: [facility] Address: [address] [place] [address] Performed By: #### 2 458-8 #### [facility] CLIA [id number] [address] [place] [address] [place] MCH (RBC) [Entitic mass] 27.9 pg Normal 26.0-34.[address] [facility] [place] Comment on above: Order Comment: Speci men Type: BLOOD SPECIMEN Ordering Facility: [facility] Address: [address] [place], [place] [address] Performed By: #### 2 458-8 #### [facility] CLIA [id number] [address] [place] [address] [place] MCHC (RBC) [Mass/Vol] 32.5 g/dL Normal 30.5-36.0 [facility] [place] Comment on above: Order Comment: Speci men Type: BLOOD SPECIMEN Ordering Facility: [facility] Address: [address] [place] [address] Performed By: #### 2 458-8 #### [facility] CLIA [id number] [address] [place] [address] [place] MCV (RBC) [Entitic vol] 85.7 fL Normal 80.0-100.0 [facility] Comment on above: Order Comment: Speci men Type: BLOOD SPECIMEN Ordering Facility: [facility] Address: [address] [place] [address] Performed By: #### 2 458-8 #### [facility] CLIA [id number] [address] [place] [address] [place] Nucleated RBC (Bld) [#/Vol] 10*3/uL Normal <0.[address] [facility] [place] [place] Comment on above: Order Comment: Speci men Type: BLOOD SPECIMEN Ordering Facility: [facility] Address: [address] [place] [address] Performed By: #### 2 458-8 #### [facility] CLIA [id number] [address] [place] [address] [place] Platelet mean volume (Bld) [Entitic vol] 9.3 fL Normal 9.0-12.[address] [facility] [place] [place] Comment on above: Order Comment: Speci men Type: BLOOD SPECIMEN Ordering Facility: [facility] Address: [address] [place] [address] Performed By: #### 2 458-8 #### [facility] CLIA [id number] [address] [id number] [address] [place] Platelets (Bld) [#/Vol] 269 10*3/uL Normal 150-[address] [facility] [place] [place] Comment on above: Order Comment: Speci men Type: BLOOD SPECIMEN Ordering Facility: [facility] Address: [address] [place] [address] Performed By: #### 2 458-8 #### [facility] CLIA [id number] [address] [place] [address] [place] RBC (Bld) [#/Vol] 4.77 10*6/uL Normal 3.90-5.[address] [facility] [place] [place] Comment on above: Order Comment: Speci men Type: BLOOD SPECIMEN Ordering Facility: [facility] Address: [address] [place] [address] Performed By: #### 2 458-8 #### [facility] CLIA [id number] [address] [place] [address] [place] WBC (Bld) [#/Vol] 7.23 10*3/uL Normal 3.70-11.[address] [facility] [place] [place] Comment on above: Order Comment: Speci men Type: BLOOD SPECIMEN Ordering Facility: [facility] Address: [address] [place] [address] Performed By: #### 2 458-8 #### [facility] CLIA [id number] [address] [place] [address] [place] CNOVon 01-08-2025 CNOV Office Visit (AGGENS4) POLY ARAMNDO ([id number]) 1995 F Date Time Provider Department 01/08/25 9:30 AM VILMA ROUSE During your visit today, we recorded the following information about you: Pulse Blood pressure Weight Height 64/minute 118/68 112 kg 1.6 m Vilma Rouse APRN.BRIT 01/08/2025 10:06 AM Signed [facility] FOLLOW UP NOTE HPI: Poly Armando a 29 year old female presents for medically supervised weight loss treatment of her obesity related co morbidities. This individual presents for month 2 of 6 required visits. Poly Armando weight has decreased since first visit in the program. PMH: Prediabetes HTN Tachycardia GERD Depression and anxiety Seizures HS Dizziness NAFLD Poly has completed the SNA and has started making improvements to her diet. She has started tracking on the [employer] sandrine and showed me her progress today. She is working on increasing her fluid and finds True Lemon very helpful. She is also trying to find time for formal exercise, but is very busy with her 3 kids and their activities. Denies recent illnesses, hospitalizations, and medication changes. Today, we further discussed the bariatric program - clearances, monthly visits, testing, etc. HISTORY REVIEWED (electronic chart updated): - medical history - medications - allergies - social history PAST MEDICAL HISTORY Diagnosis Date Headaches NAFLD (nonalcoholic fatty liver disease) Prediabetes Seizure (HCC) Uterine fibroid Social: Social History Tobacco Use Smoking status: Never Smokeless tobacco: Never Vaping Use Vaping status: Never Used Substance Use Topics Alcohol use: Not Currently Drug use: Never Medications: Current Outpatient Medications Medication Sig propranolol ER (INDERAL LA) 160 mg Cs24 Take 1 capsule by mouth once daily. famotidine (PEPCID) 40 mg tablet Take 1 tablet by mouth once daily. metFORMIN (GLUCOPHAGE) 500 mg tablet Take 1 tablet by mouth two times a day with meals. desvenlafaxine ER (PRISTIQ) 100 mg 24 hr tablet Take 1 tablet by mouth once daily. No current facility-administered medications for this visit. REVIEW OF SYSTEMS Review of Systems Constitutional: Positive for weight loss. Negative for chills, fever and malaise/fatigue. HENT: Negative. Eyes: Negative. Respiratory: Negative for cough and shortness of breath. Cardiovascular: Negative for chest pain, palpitations and leg swelling. Gastrointestinal: Positive for heartburn. Negative for abdominal pain, blood in stool, constipation, diarrhea, melena, nausea and vomiting. Genitourinary: Negative. Musculoskeletal: Negative for myalgias. Skin: Negative. Neurological: Negative for dizziness and headaches. Psychiatric/Behaviora l: Negative. PHYSICAL EXAMINATION BP 118/68 Pulse 64 Ht 160 cm (5' 3) Wt 112 kg (247 lb) LMP 10/31/2024 (Exact Date) SpO2 96% BMI 43.75 kg/m? Physical Exam Vitals reviewed. Constitutional: General: She is not in acute distress. Appearance: Normal appearance. She is obese. She is not ill-appearing or toxic-appearing. Pulmonary: Effort: Pulmonary effort is normal. Abdominal: Comments: Obese Musculoskeletal: General: Normal range of motion. Cervical back: Normal range of motion. Skin: General: Skin is warm and dry. Neurological: Mental Status: She is alert. Psychiatric: Mood and Affect: Mood normal. Behavior: Behavior normal. Diagnostic Tests Reviewed for Today's Visit Most recent labs The plan of treatment for Poly Armando is: Further Work-up: Required monthly visits: 2 of 6 months Patient is interested in: RYGB EGD: 10/2024 - small hiatal hernia Pathology: Duodenum, biopsy: Duodenal mucosa with an intact villous architecture and intraepithelial lymphocytosis - can be associated with Losartan. Stomach, antrum, biopsy: Mild reactive gastropathy. No intestinal metaplasia or morphologic evidence of Helicobacter pylori organisms. Gastroesophageal junction, biopsy: Hyperplastic squamous esophageal mucosa with reactive epithelial changes and ulcer. No morphologic evidence of fungal organisms or viral cytopathic effect. Upper GI: defer to EGD RUQ US: 08/02/24 - hepatic steatosis HIDA: normal GB EF CT abd/pelvis (11/05/23): WNL aside from left renal stone Sleep Study: per pulmonology CXR: per pulmonology clearance EKG: per cardiac clearance H Pylori: negative Labs: ordered today Nicotine use <12 months: No, negative Tox screen: Negative Antiplatelet/anticoag ulants: No Immunosuppressive therapy: No Estrogen therapy: No Evaluations: Psychology: ongoing 01/21 Nutrition: ongoing 01/29 Education class: ongoing Clearances: -Cardiology 01/15 -Pulmonology 01/22 -PCP Risk Calculator: VTE Risk: 0.16 - 0.25% ISS score: not diabetic Adverse Event score: NA Post-op Medicati (more content not included)... Normal [facility] Comprehensive metabolic 2000 panelon 01-08-2025 Albumin [Mass/Vol] 4.6 g/dL 3.9 - 4.9 g/dL [facility] ALP [Catalytic activity/Vol] 70 U/L 34 - 123 U/L [facility] ALT [Catalytic activity/Vol] 20 U/L 7 - 38 U/L [facility] Anion gap [Moles/Vol] 12 mmol/L 8 - 15 mmol/L [facility] AST [Catalytic activity/Vol] 21 U/L 13 - 35 U/L [facility] Bilirubin [Mass/Vol] 0.3 mg/dL 0.2 - 1 .3 mg/dL [facility] Calcium [Mass/Vol] 9.3 mg/dL 8.5 - 10. 2 mg/dL [facility] Chloride [Moles/Vol] 101 mmol/L 98 - 10 7 mmol/L [facility] CO2 [Moles/Vol] 26 mmol/L 22 - 30 mmol/L [facility] Creatinine [Mass/Vol] 0.71 mg/dL 0.58 - 0.96 mg/dL [facility] GFR/1.73 sq M.predicted among non-blacks MDRD (S/P/Bld) [Vol rate/Area] 118 mL/min/{1.73_m2} - PINF [facility] Comment on above: Estimated Glomerular Filtration Rate (eGFR) is calculated using the 2020 CKD-EPI creatinine equation. This equation utilizes serum creatinine, sex, and age as parameters. The creatinine assay has traceable calibration to isotope dilution-mass spectrometry. Refer to KDIGO guidelines for clinical interpretation. In patients with unstable renal function, e.g. those with acute kidney injury, the eGFR may not accurately reflect actual GFR. Glucose [Mass/Vol] 140 mg/dL High 74 - 99 mg/dL [facility] Comment on above: The [place] Diabete s Association (ADA) provides guidance for cutoff values for fasting glucose and random glucose. The ADA defines fasting as no caloric intake for at least 8 hours. Fasting plasma glucose results between 100 to 125 mg/dL indicate increased risk for diabetes (prediabetes). Fasting plasma glucose results greater than or equal to 126 mg/dL meet the criteria for diagnosis of diabetes. In the absence of unequivocal hyperglycemia, results should be confirmed by repeat testing. In a patient with classic symptoms of hyperglycemia or hyperglycemic crisis, random plasma glucose results greater than or equal to 200 mg/dL meet the criteria for diagnosis of diabetes. Reference: Standards of Medical Care in Diabetes 2016, [place] Diabetes Association. Diabetes Care. 2016.39(Suppl 1). Interpretation and review of laboratory results Abnormal [facility] Potassium [Moles/Vol] 4.4 mmol/L 3.7 - 5.1 mmol/L [facility] Protein [Mass/Vol] 7.9 g/dL 6.3 - 8.0 g/dL [facility] Sodium [Moles/Vol] 139 mmol/L 136 - 144 mmol/L [facility] Urea nitrogen [Mass/Vol] 19 mg/dL 7 - 21 mg/dL [facility] Albumin [Mass/Vol] 4.6 g/dL Normal 3.9-4.[address] [facility] Comment on above: Order Comment: Speci men Type: BLOOD SPECIMEN Ordering Facility: [facility] Address: [address] [place] [address] Performed By: #### 2 458-8 #### [facility] CLIA [id number] [address] [place] [address] [place] ALP [Catalytic activity/Vol] 70 U/L Normal 34-[address] [facility] [place] Comment on above: Order Comment: Speci men Type: BLOOD SPECIMEN Ordering Facility: [facility] Address: [address] [place] [address] Performed By: #### 2 458-8 #### [facility] CLIA [id number] [address] [place] [address] [place] ALT [Catalytic activity/Vol] 20 U/L Normal 7-[address] [facility] [place] Comment on above: Order Comment: Speci men Type: BLOOD SPECIMEN Ordering Facility: [facility] Address: [address] [place] [address] Performed By: #### 2 458-8 #### [facility] CLIA [id number] [address] [place] [address] [place] Anion gap [Moles/Vol] 12 mmol/L Normal 8-15 [facility] [place] Comment on above: Order Comment: Speci men Type: BLOOD SPECIMEN Ordering Facility: [facility] Address: [address] [place] [address] Performed By: #### 2 458-8 #### [facility] CLIA [id number] [address] [place] [address] [place] AST [Catalytic activity/Vol] 21 U/L Normal 13-[address] [facility] [place] Comment on above: Order Comment: Speci men Type: BLOOD SPECIMEN Ordering Facility: [facility] Address: [address] [place] [address] Performed By: #### 2 458-8 #### [facility] CLIA [id number] [address] [place] [address] [place] Bilirubin [Mass/Vol] 0.3 mg/dL Normal 0.2-1.3 [facility] Comment on above: Order Comment: Speci men Type: BLOOD SPECIMEN Ordering Facility: [facility] Address: [address] [place] [address] Performed By: #### 2 458-8 #### [facility] CLIA [id number] [address] [place] [address] [place] Calcium [Mass/Vol] 9.3 mg/dL Normal 8.5-10.[address] [facility] [place] Comment on above: Order Comment: Speci men Type: BLOOD SPECIMEN Ordering Facility: [facility] Address: [address] [place] [address] Performed By: #### 2 458-8 #### [facility] CLIA [id number] [address] [place] [address] [place] Chloride [Moles/Vol] 101 mmol/L Normal 98-107 [facility] Comment on above: Order Comment: Speci men Type: BLOOD SPECIMEN Ordering Facility: [facility] Address: [address] [place] [address] Performed By: #### 2 458-8 #### [facility] CLIA [id number] [address] [place] [address] [place] CO2 [Moles/Vol] 26 mmol/L Normal 22-[address] [facility] [place] Comment on above: Order Comment: Speci men Type: BLOOD SPECIMEN Ordering Facility: [facility] Address: [address] [place] [address] Performed By: #### 2 458-8 #### [facility] CLIA [id number] [address] [place] [address] [place] Creatinine [Mass/Vol] 0.71 mg/dL Normal 0.58-0.96 [facility] [place] Comment on above: Order Comment: Radha wilson Type: BLOOD SPECIMEN Ordering Facility: [facility] Address: [address] [place] [address] Performed By: #### 2 458-8 #### [facility] CLIA [id number] [address] [place] [address] [place] Creatinine and Glomerular filtration rate.predicted panel (S/P/Bld) 118 mL/min/1.73m??? Normal >=[address] [facility] [place] Comment on above: Order Comment: Radha wilson Type: BLOOD SPECIMEN Ordering Facility: [facility] Address: [address] [place] [address] Result Comment: Kath mated Glomerular Filtration Rate (eGFR) is calculated using the 2020 CKD-EPI creatinine equation. This equation utilizes serum creatinine, sex, and age as parameters. The creatinine assay has traceable calibration to isotope dilution-mass spectrometry. Refer to KDIGO guidelines for clinical interpretation. In patients with unstable renal function, e.g. those with acute kidney injury, the eGFR may not accurately reflect actual GFR. Performed By: #### 2 458-8 #### [facility] CLIA [id number] [address] [place] [address] [place] Glucose [Mass/Vol] 140 mg/dL High 74-[address] [facility] [place] Comment on above: Order Comment: Radha wilson Type: BLOOD SPECIMEN Ordering Facility: [facility] Address: [address] [place] [address] Result Comment: The [place] Diabetes Association (ADA) provides guidance for cutoff values for fasting glucose and random glucose. The ADA defines fasting as no caloric intake for at least 8 hours. Fasting plasma glucose results between 100 to 125 mg/dL indicate increased risk for diabetes (prediabetes). Fasting plasma glucose results greater than or equal to 126 mg/dL meet the criteria for diagnosis of diabetes. In the absence of unequivocal hyperglycemia, results should be confirmed by repeat testing. In a patient with classic symptoms of hyperglycemia or hyperglycemic crisis, random plasma glucose results greater than or equal to 200 mg/dL meet the criteria for diagnosis of diabetes. Reference: Standards of Medical Care in Diabetes 2016, [place] Diabetes Association. Diabetes Care. 2016.39(Suppl 1). Performed By: #### 2 458-8 #### [facility] CLIA [id number] [address] [place] [address] [place] Potassium [Moles/Vol] 4.4 mmol/L Normal 3.7-5.1 [facility] [place] Comment on above: Order Comment: Speci men Type: BLOOD SPECIMEN Ordering Facility: [facility] Address: [address] [place] [address] Performed By: #### 2 458-8 #### [facility] CLIA [id number] [address] [place] [address] [place] Protein [Mass/Vol] 7.9 g/dL Normal 6.3-8.[address] [facility] [place] Comment on above: Order Comment: Speci men Type: BLOOD SPECIMEN Ordering Facility: [facility] Address: [address] [place] [address] Performed By: #### 2 458-8 #### [facility] CLIA [id number] [address] [place] [address] [place] Sodium [Moles/Vol] 139 mmol/L Normal 136-[address] [facility] [place] Comment on above: Order Comment: Speci men Type: BLOOD SPECIMEN Ordering Facility: [facility] Address: [address] [place] [address] Performed By: #### 2 458-8 #### [facility] CLIA [id number] [address] [place] [address] [place] Urea nitrogen [Mass/Vol] 19 mg/dL Normal 7-[address] [facility] [place] Comment on above: Order Comment: Speci men Type: BLOOD SPECIMEN Ordering Facility: [facility] Address: [address] [place] [address] Performed By: #### 2 458-8 #### [facility] CLIA [id number] [address] [place] [address] [place] FERRITINon 01-08-2025 Ferritin [Mass/Vol] 56.3 ng/mL 14.7 - 2 05.1 ng/mL [facility] FOLATE, SERUMon 01-08-2025 Folate [Mass/Vol] 11.3 ng/mL 4.7 - PINF ng/mL [facility] Ferritin SerPl-mCncon 2024 Ferritin [Mass/Vol] 56.3 ng/mL Normal 14.7-205.[address] [facility] [place] Comment on above: Order Comment: Specmercedes wilson Type: BLOOD SPECIMEN Ordering Facility: [facility] Address: [address] [place] [address] Performed By: #### 2 458-8 #### [facility] CLIA [id number] [address] [place] [address] [place] Folate SerPl-mCncon 01-09-20 Folate [Mass/Vol] 11.3 ng/mL Normal >4.[address] [facility] [place] Comment on above: Order Comment: Sammyi katie Type: BLOOD SPECIMEN Ordering Facility: [facility] Address: [address] [place] [address] Performed By: #### 5 8410-2 #### [facility] CLIA [id number] [address] [place] [address] [place] Folate [Mass/Vol]on 01-09-20 Interpretation and review of laboratory results Normal [facility] HbA1c (Bld)on 01-08-2025 Average glucose Estimated from glycated hemoglobin (Bld) [Mass/Vol] 126 mg/dL Normal [facility] [place] Comment on above: Order Comment: Radha wilson Type: BLOOD SPECIMEN Ordering Facility: [facility] Address: [address] [place] [address] Result Comment: eAG: (Estimated average glucose) is a calculated value from HgbA1c and is credit and collections representative of the average blood glucose level in the last 2-3 month period. Performed By: #### 1 989-3, 43193-5 #### [facility] CLIA [id number] [address] [place] [address] [place] HbA1c (Bld) [Mass fraction] 6.0 % Normal 4.3-6.[address] [facility] [place] Comment on above: Order Comment: Radha wilson Type: BLOOD SPECIMEN Ordering Facility: [facility] Address: [address] [place] [address] Result Comment: [place] Diabetes Association guidelines indicate that patients with HgbA1c in the range 5.7-6.4% are at increased risk for development of diabetes, and intervention by lifestyle modification may be beneficial. HgbA1c greater or equal to 6.5% is considered diagnostic of diabetes. Performed By: #### 1 989-3, 12596-3 #### [facility] CLIA [id number] [address] [place] [address] [place] Iron and Iron binding capaci ty panel 01-08-2025 Interpretation and review of laboratory results Normal [facility] Iron [Mass/Vol] 44 ug/dL 41 - 186 ug/dL [facility] Iron binding capacity [Mass/Vol] 290 ug/dL 232 - 386 ug/dL [facility] Iron/TIBC [Molar ratio] 15.2 % 15.0 - 57.0 % [facility] Iron [Mass/Vol] 44 ug/dL Normal 41-[address] [facility] [place] Comment on above: Order Comment: Radha wilson Type: BLOOD SPECIMEN Ordering Facility: [facility] Address: [address] [place] [address] Performed By: #### 2 458-8 #### [facility] CLIA [id number] [address] [place] [address] [place] Iron binding capacity [Mass/Vol] 290 ug/dL Normal 232-[address] [facility] [place] Comment on above: Order Comment: Radha wilson Type: BLOOD SPECIMEN Ordering Facility: [facility] Address: [address] [place] [address] Performed By: #### 2 458-8 #### [facility] CLIA [id number] [address] [place] [address] [place] Iron/TIBC [Molar ratio] 15.2 % Normal 15.0-57.0 [facility] Comment on above: Order Comment: Radha wilson Type: BLOOD SPECIMEN Ordering Facility: [facility] Address: [address] [place] [address] Performed By: #### 2 458-8 #### [facility] CLIA [id number] [address] [place] [address] [id number] [address] [place] No Panel Informationon 01-08 Interpretation and review of laboratory results Normal [facility] PTH INTACTon 01-08-2025 Parathyrin.intact [Mass/Vol] 47 pg/mL 15 - 65 pg/mL [facility] PTH-Intact SerPl-mCncon 12-23 Parathyrin.intact [Mass/Vol] 47 pg/mL Normal 15-[address] [facility] [place] Comment on above: Order Comment: Radha wilson Type: BLOOD SPECIMEN Ordering Facility: [facility] Address: [address] [place] [address] Performed By: #### 5 8410-2 #### [facility] CLIA [id number] [address] [place] [address] [place] Parathyrin.intact [Mass/Vol] on 01-08-2025 Interpretation and review of laboratory results Normal [facility] VITAMIN B1 (THIAMINE), WHOLE BLOODon 01-08-2025 Thiamine (Bld) [Moles/Vol] 194.2 nmol/L Normal 84.3-213.[address] [facility] [place] [place] Comment on above: Order Comment: Radha wilson Type: BLOOD SPECIMEN Ordering Facility: [facility] Address: [address] [place], [place] [id number] Result Comment: This assay measures the concentration of thiamine diphosphate (TDP), the primary active form of vitamin B1. Approximately 90 percent of vitamin B1 present in whole blood is TDP. Thiamine and thiamine monophosphate, which comprise the remaining 10 percent, are not measured. This test was developed, and its performance characteristics determined by the [facility] Department of Pathology and Laboratory Medicine. It has not been cleared or approved by the FDA. The [facility] Department of Pathology and Laboratory Medicine is regulated under CLIA as qualified to perform high-complexity testing. This test is used for clinical purposes. It should not be regarded as investigational or for research. Performed By: #### 2 458-8 #### [facility] CLIA [id number] [address] [place] [address] [place] VITAMIN B12on 01-08-2025 Cobalamin (Vitamin B12) [Mass/Vol] 632 pg/mL 232 - 1245 pg/mL [facility] VITAMIN D 25 HYDROXYon 01-08 25-hydroxyvitamin D3 [Mass/Vol] 30.7 ng/mL Low 31.0 - 80.0 ng/mL [facility] Vit A SerPl-mCncon Retinol [Mass/Vol] 0.35 mg/L Normal 0.30-1.[address] [facility] [place] Comment on above: Order Comment: Speci men Type: BLOOD SPECIMEN Ordering Facility: [facility] Address: [address] [place] [address] Result Comment: This test was developed, and its performance characteristics determined by the [facility] Department of Pathology and Laboratory Medicine. It has not been cleared or approved by the FDA. The [facility] Department of Pathology and Laboratory Medicine is regulated under CLIA as qualified to perform high-complexity testing. This test is used for clinical purposes. It should not be regarded as investigational or for research. Performed By: #### 2 458-8 #### [facility] CLIA [id number] [address] [place] [address] [place] Vit B12 SerPl-mCncon 025 Cobalamin (Vitamin B12) [Mass/Vol] 632 pg/mL Normal 232-[address] [facility] Comment on above: Order Comment: Speci men Type: BLOOD SPECIMEN Ordering Facility: [facility] Address: [address] [place] [address] Performed By: #### 2 458-8 #### [facility] CLIA [id number] [address] [place] [address] [place] Zinc SerPl-mCncon 01-08-2025 Zinc [Mass/Vol] 67 ug/dL Normal 60-[address] [facility] [place] Comment on above: Order Comment: Speci men Type: BLOOD SPECIMEN Ordering Facility: [facility] Address: [address] [place] [address] Result Comment: This test was developed, and its performance characteristics determined by the [facility] Department of Pathology and Laboratory Medicine. It has not been cleared or approved by the FDA. The [facility] Department of Pathology and Laboratory Medicine is regulated under CLIA as qualified to perform high-complexity testing. This test is used for clinical purposes. It should not be regarded as investigational or for research. Performed By: #### 2 458-8 #### [facility] CLIA [id number] [address] [place] [address] [place] NICOTINE AND METAB, URon URIN ANABASINE QUANT <5 Normal [facility] Comment on above: Order Comment: Speci men Type: BLOOD SPECIMEN Ordering Facility: [facility] Address: [address] [place] [address] Performed By: #### 2 458-8 #### [facility] CLIA [id number] [address] [place] [address] [place] URIN COTININE QUANT <15 [facility] Comment on above: Order Comment: Speci men Type: BLOOD SPECIMEN Ordering Facility: [facility] Address: [address] [place] [address] Performed By: #### 2 458-8 #### [facility] CLIA [id number] [address] [place] [address] [place] URIN NICOTINE QUANT <15 [facility] Comment on above: Order Comment: Speci men Type: BLOOD SPECIMEN Ordering Facility: [facility] Address: [address] [place] [address] Result Comment: INTE RPRETIVE INFORMATION: Nicotine and Metabolites, Urine, Quantitative Methodology: Quantitative Liquid Chromatography-Tandem Mass Spectrometry Positive cutoff: Nicotine 15 ng/mL Cotinine 15 ng/mL 8-AG-Dovlvytr 50 ng/mL Anabasine 5 ng/mL For medical purposes only; not valid for forensic use. This test is designed to evaluate recent use of nicotine-containing products. Passive and active exposure cannot be discriminated definitively, although a cutoff of 100 ng/mL cotinine is frequently used for surgery qualification purposes. For smoking cessation programs or compliance testing, the absence of expected drug(s) and/or drug metabolite(s) may indicate non-compliance, inappropriate timing of specimen collection relative to drug administration, poor drug absorption, diluted/adulterated urine, or limitations of testing. The concentration value must be greater than or equal to the cutoff to be reported as positive. Anabasine is included as a biomarker of tobacco use, versus nicotine replacement. Interpretive questions should be directed to the laboratory. This test was developed and its performance characteristics determined by [facility]. It has not been cleared or approved by the [place] Food and Drug Administration. This test was performed in a CLIA certified laboratory and is intended for clinical purposes. Performed By: [facility] [address] [place], [place] [id number] Clinical Services Consultant: Chaparro Lopez MD, PhD CLIA Number: [id number] Performed By: #### 2 458-8 #### [facility] CLIA [id number] [address] [place] [address] [place] URINE 3 OH COTININE <[address] [facility] [place] Comment on above: Order Comment: Speci men Type: BLOOD SPECIMEN Ordering Facility: [facility] Address: [address] [place] [address] Performed By: #### 2 458-8 #### [facility] CLIA [id number] [address] [place] [address] [place] TOXICOLOGY SCREEN, ROUTINE U RINEon 12-19-2024 Amphetamines Confirm (U) [Mass/Vol] Negative Normal Negative [facility] [place] Comment on above: Order Comment: Speci men Type: BLOOD SPECIMEN Ordering Facility: [facility] Address: [address] [place] [address] Result Comment: Cuto ff threshold at 1000 ng/mL. Performed By: #### 2 458-8 #### [facility] CLIA [id number] [address] [place] [address] [place] BARBITURATES, URINE Negative Normal Negative [facility] [place] Comment on above: Order Comment: Speci men Type: BLOOD SPECIMEN Ordering Facility: [facility] Address: [address] [place] [address] Result Comment: Cuto ff threshold at 200 ng/mL. Performed By: #### 2 458-8 #### [facility] CLIA [id number] [address] [place] [address] [place] BENZODIAZEPINES, UR Negative Normal Negative [facility] Comment on above: Order Comment: Speci men Type: BLOOD SPECIMEN Ordering Facility: [facility] Address: [address] [place] [address] Result Comment: Cuto ff threshold at 200 ng/mL. Performed By: #### 2 458-8 #### [facility] CLIA [id number] [address] [place] [address] [place] Cannabinoids Screen Ql (U) Negative Normal Negative [facility] [place] Comment on above: Order Comment: Speci men Type: BLOOD SPECIMEN Ordering Facility: [facility] Address: [address] [place] [address] Result Comment: Cuto ff threshold at 50 ng/mL. Performed By: #### 2 458-8 #### [facility] CLIA [id number] [address] [place] [address] [place] Cocaine Ql (U) Negative Normal Negative [facility] [place] Comment on above: Order Comment: Speci men Type: BLOOD SPECIMEN Ordering Facility: [facility] Address: [address] [place] [address] Result Comment: Cuto ff threshold at 300 ng/mL. Performed By: #### 2 458-8 #### [facility] CLIA [id number] [address] [place] [address] [place] Opiates Screen Ql (U) Negative Normal Negative [facility] [place] Comment on above: Order Comment: Speci men Type: BLOOD SPECIMEN Ordering Facility: [facility] Address: [address] [place] [address] Result Comment: Cuto ff threshold at 300 ng/mL. Performed By: #### 2 458-8 #### [facility] CLIA [id number] [address] [place] [address] [place] oxyCODONE cutoff Screen (U) [Mass/Vol] Negative Normal Negative [facility] Comment on above: Order Comment: Speci men Type: BLOOD SPECIMEN Ordering Facility: [facility] Address: [address] [place] [address] Result Comment: Cuto ff threshold at 100 ng/mL. Performed By: #### 2 458-8 #### [facility] CLIA [id number] [address] [place] [address] [place] Phencyclidine Ql (U) Negative Normal Negative [facility] Comment on above: Order Comment: Speci men Type: BLOOD SPECIMEN Ordering Facility: [facility] Address: [address] [place] [address] Result Comment: Cuto ff threshold at 25 ng/mL. Performed By: #### 2 458-8 #### [facility] CLIA [id number] [address] [place] [address] [place] TSH SerPl-aCncon 12-19-2024 TSH Qn 2.040 m[IU]/L Normal 0.270-4.[address] [facility] [place] Comment on above: Order Comment: Speci men Type: BLOOD SPECIMEN Ordering Facility: [facility] Address: [address] [place] [address] Result Comment: If t he patient is , TSH reference range varies by gestational period: First Trimester (weeks 9-12): 0.180-2.990 mIU/L Second Trimester: 0.110-3.980 mIU/L Third Trimester: 0.480-4.710 mIU/L Kevin Pereira et al. A Practical Approach for the Verifications and Determination of Site- and Trimester-Specific Reference Intervals for Thyroid Function tests in . Thyroid, 2019:29:3:412-420. Kai Delarosa et al. 2017 Guidelines of the [place] Thyroid Association for the Diagnosis and Management of Thyroid Disease during and the . Thyroid, 2017:27:3:315-389. Performed By: #### 3 016-3 #### [facility] CLIA [id number] [address] [place] [address] [place] CNOVon 12-17-2024 CNOV Office Visit (AGGENS4) POLY ARMANDO ([id number]) 1995 F Date Time Provider Department 12/17/24 1:00 PM EBONY BARRIOS AGGENS4 During your visit today, we recorded the following information about you: Pulse Blood pressure Weight Height 81/minute 118/70 114.3 kg 1.6 m Ebony Barrios MD 12/17/2024 1:43 PM Signed BARIATRIC SURGERY NEW PATIENT CONSULTATION HISTORY AND PHYSICAL Date: December 17, 2024 Time: 1:08 PM Poly Armando is a 29 year old year old female with obesity (Body mass index is 44.64 kg/m?.), NAFLD, pre-diabetes (metformin), HTN (Propranolol), tachycardia, GERD, depression and anxiety (pristiq), seizures (last 2017; no meds), hidradenitis suppurativa who presents to the clinic today for consideration of bariatric surgery. Surgical consultation was requested by the patient's referring provider, Wilson Wharton APRN. A copy of this consultation note will be provided to the requesting physician(s) by way of shared medical record or letter via US mail. This patient has struggled with weight related concerns starting around 2018 when her son was diagnosed with Leukemia and she let herself go. Prior to that she had her first seizure in 2012 and was doing well from that standpoint, but in 2018 her seizures started again. They have attempted weight loss with diet and exercise programs and medications without moth exterminator success. They attribute weight gain to the factors mentioned above. The heaviest adult weight they can recall was 252 pounds and the healthiest adult weight they can recall was 145 pounds after her first in 2013. Her weight today is 252 pounds. Her goal is to be healthier and get off of medications. She endorses a long history of GERD symptoms - starting during her second . She has symptoms sometimes when drinking only water. She takes Tums, OTC Zantac, and was recently started on Pepcid 40 mg daily - she feels this medication is helping her symptoms. She occasionally uses NSAIDs - not even 3 times per month She denies any personal history of DVT/PE, SC/CAD, TIA/CVA. She was diagnosed with pre-diabetes about 2 years ago and has been Metformin since that time. She started experiencing abdominal pain and gastritis-like symptoms along with bloating. She noticed that she was passing whole pills. She underwent many exams and workup, including EGD. Pathology was noted to demonstrate intraepithelial lymphocytes, which can be secondary to Losartan use. She was therefore changed from Losartan to Propranolol. She has daily episodes of dizziness for which she has undergone workup for vertigo. She states that workup demonstrated no cause of her symptoms. She does admit to not drinking enough fluids during the day. Social: denies x 3; denies SHS exposure PSHx: x 3; TL PAST MEDICAL HISTORY Diagnosis Date Headaches NAFLD (nonalcoholic fatty liver disease) Prediabetes Seizure (HCC) Uterine fibroid PAST SURGICAL HISTORY Procedure Laterality Date ANESTH, SECTION 2012,2014,2017 LIGATE FALLOPIAN TUBE FAMILY HISTORY Problem Relation Age of Onset DVT Mother Hypertension Mother Hypertension Father Diabetes Father Cancer Son Colon Cancer Maternal Aunt Social History Tobacco Use Smoking status: Never Smokeless tobacco: Never Vaping Use Vaping status: Never Used Substance Use Topics Alcohol use: Not Currently Drug use: Never Current Outpatient Medications Medication Sig propranolol ER (INDERAL LA) 160 mg Cs24 Take 1 capsule by mouth once daily. famotidine (PEPCID) 40 mg tablet Take 1 tablet by mouth once daily. metFORMIN (GLUCOPHAGE) 500 mg tablet Take 1 tablet by mouth two times a day with meals. desvenlafaxine ER (PRISTIQ) 100 mg 24 hr tablet Take 1 tablet by mouth once daily. No current facility-administered medications for this visit. ALLERGIES Allergen Reactions Lisinopril Intolerance Tape [Adhesive Tape* Rash Review of Systems Constitutional: Positive for malaise/fatigue (baseline chronic). Negative for chills, diaphoresis and fever. HENT: Negative for congestion, hearing loss, nosebleeds, sinus pain, sore throat and tinnitus. Eyes: Negative for blurred vision, double vision, pain and redness. Respiratory: Negative for cough, hemoptysis, sputum production, shortness of breath and wheezing. Cardiovascular: Positive for palpitations. Negative for chest pain, orthopnea, leg swelling and PND. Gastrointestinal: Positive for heartburn. Negative for abdominal pain, blood in stool, constipation, diarrhea, nausea and vomiting. Genitourinary: Negative for dysuria, frequency, hematuria and urgency. Musculoskeletal: Negative for back pain, falls, joint pain, myalgias and neck pain. Skin: Negative for itching and rash. Neurological: Positive for dizziness. Negative for speech change, (more content not included)... Normal [facility] POL[facility] ([id number]) 1995 F Date Time Provider Department 12/17/24 EBONY BARRIOS AGGENS4 During your visit today, we recorded the following information about you: Roverto Jones RN 12/17/2024 11:48 AM Signed Artem Info Packet sent to pt via [facility]. Roverto Jones RN, BSN Bariatric Form Stripper Allergies As of Date: 12/17/2024 Noted Allergy Reaction LISINOPRIL 01/20/2022 5 - Intolerance TAPE (ADHESIVE TAPE (ROSINS)) 08/14/2024 2 - Rash Date Reviewed: 11/28/2024 Reviewed by: Wilson Wharton APRN.BOOM MASTER - Fully Assessed Reason for Visit: Bariatric Information Packet [Other] Prescriptions as of 12/17/2024 - propranolol ER (INDERAL LA) 160 mg Cs24 Take 1 capsule by mouth once daily. - famotidine (PEPCID) 40 mg tablet Take 1 tablet by mouth once daily. - metFORMIN (GLUCOPHAGE) 500 mg tablet Take 1 tablet by mouth two times a day with meals. - desvenlafaxine ER (PRISTIQ) 100 mg 24 hr tablet Take 1 tablet by mouth once daily. 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] 01/04/2021 Scoliosis concern [Z13.828] 01/04/2021 Seizure disorder (HCC) [G40.909] 01/04/2021 Migraine without aura, not intractable, with st*01/04/2021 Elevated blood pressure reading without diagnos*01/04/2021 12/05/2021 Generalized seizures (HCC) [R56.9] 03/03/2021 Tension headaches [G44.209] 03/03/2021 Headache, rebound [G44.40] 03/03/2021 ROBERT (generalized anxiety disorder) [F41.1] 11/18/2021 Hypertension, essential [I10] 11/18/2021 Hidradenitis suppurativa [L73.2] 11/18/2021 Acne vulgaris [L70.0] 11/18/2021 Lymph node enlargement [R59.9] 11/18/2021 Breathing difficult [R06.89] 01/18/2022 07/07/2022 Shakiness [R25.1] 01/18/2022 07/07/2022 Racing heart beat [R00.0] 01/18/2022 Elevated heart rate with elevated blood pressur*01/20/2022 Encounter Status:Closed by ROVERTO JONES on 12/17/24 [facility] 12-09-2024 BRIT Telephone (AGGENS4) POLY ARMANDO ([id number]) 1995 F Date Time Provider Department 12/09/24 CODIE GREENE4 During your visit today, we recorded the following information about you: Dorene Mcdaniels 12/09/2024 9:02 AM Signed Insurance Verification Insurance Company: [employer] Provider Phone #: [phone] Effective Date: 08/24/21 Call Reference #: [email or web address] Months of Wt Loss: 6 Consecutive: 6 Months of Weight History:6 Obesity Medicine Coverage: yes COVERAGE: REVISION-yes SLEEVE-yes RNY/BYPASS-yes TIFFANIE/DS-yes REQUIREMENTS: Pulmonary Clearance: yes Cardiac Clearance: yes Nicotine Testing: yes Drug Testing: yes TSH Testing: yes If Female patient, is test required: BMI > 40 7 office visits In Network %-80 Deductible-400 OOP Max-2500 Surgeries per life-1 [employer]: Martin Provider: Sophie Allergies As of Date: 12/09/2024 Noted Allergy Reaction LISINOPRIL 01/20/2022 5 - Intolerance TAPE (ADHESIVE TAPE (ROSINS)) 08/14/2024 2 - Rash Date Reviewed: 11/28/2024 Reviewed by: Wilson Wharton APRN.BOOM MASTER - Fully Assessed Reason for Visit: Patient Update [1234] Cmt: Bariatric Benefits Investigation Prescriptions as of 12/09/2024 - propranolol ER (INDERAL LA) 160 mg Cs24 Take 1 capsule by mouth once daily. - famotidine (PEPCID) 40 mg tablet Take 1 tablet by mouth once daily. - metFORMIN (GLUCOPHAGE) 500 mg tablet Take 1 tablet by mouth two times a day with meals. - desvenlafaxine ER (PRISTIQ) 100 mg 24 hr tablet Take 1 tablet by mouth once daily. 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] 01/04/2021 Scoliosis concern [Z13.828] 01/04/2021 Seizure disorder (HCC) [G40.909] 01/04/2021 Migraine without aura, not intractable, with st*01/04/2021 Elevated blood pressure reading without diagnos*01/04/2021 12/05/2021 Generalized seizures (HCC) [R56.9] 03/03/2021 Tension headaches [G44.209] 03/03/2021 Headache, rebound [G44.40] 03/03/2021 ROBERT (generalized anxiety disorder) [F41.1] 11/18/2021 Hypertension, essential [I10] 11/18/2021 Hidradenitis suppurativa [L73.2] 11/18/2021 Acne vulgaris [L70.0] 11/18/2021 Lymph node enlargement [R59.9] 11/18/2021 Breathing difficult [R06.89] 01/18/2022 07/07/2022 Shakiness [R25.1] 01/18/2022 07/07/2022 Racing heart beat [R00.0] 01/18/2022 Elevated heart rate with elevated blood pressur*01/20/2022 Encounter Status:Closed by DORENE MCDANIELS on 12/09/24 [facility] CNOVon 11-28-2024 CNOV Office Visit (INTMWS ) POLY ARMANDO ([id number]) 1995 F Date Time Provider Department 11/28/24 9:20 AM WILSON WHARTON INTMWS During your visit today, we recorded the following information about you: Pulse Blood pressure Weight Last Period 72/minute 118/84 112.8 kg 10/31/24 Wilson Wharton APRN.BOOM MASTER 11/28/2024 9:44 AM Signed SUBJECTIVE Poly Armando is a 29 year old female here today for a check up on her medical problems. Chief Complaint Patient presents with: Recheck HPI Poly Armando is a 29 year old female.She is an established patient. She presents today for routine follow up. Accompanied by her . Issues with RUQ abdominal pain. Gallbladder workup negative. Seen with GI. EGD done and noted a small hiatal hernia. Biopsy showed inflammation and increased lymphocytosis. GI suspected possibly from her losartan? Stool testing negative. Celiac panel negative. Still with stomach issues. Pelvic pressure and RUQ pain. Still working on weight loss. Has been active and eating healthy. Tried metformin, phentermine, wellbutrin in the past. Interested in discussing weight loss surgical options, she has chronic conditions of FREY and htn. Her medications were reviewed today and her list is now up to date. Medications Current Outpatient Medications Medication Sig desvenlafaxine ER (PRISTIQ) 100 mg 24 hr tablet Take 1 tablet by mouth once daily. propranolol ER (INDERAL LA) 160 mg Cs24 Take 1 capsule by mouth once daily. famotidine (PEPCID) 40 mg tablet Take 1 tablet by mouth once daily. metFORMIN (GLUCOPHAGE) 500 mg tablet Take 1 tablet by mouth two times a day with meals. No current facility-administered medications for this visit. ALLERGIES Allergen Reactions Lisinopril Intolerance Tape [Adhesive Tape* Rash ACTIVE PROBLEM LIST Elevated Heart Rate With Elevated Blood Pressure and Diagnosis of Hypertension - 01/20/2022 Racing Heart Beat - 01/18/2022 Robert (Generalized Anxiety Disorder) - 11/18/2021 Hypertension, Essential - 11/18/2021 Comment: Hypertensive emergency or severe asymptomatic hypertension absent. No evidence of target organ damage. Lifestyle: never smoker; no use of EtOH Diet: she cooks at home; lots of pasta; she enjoys vegetables and fruits Exercise: no regimen; maybe 1 walk a day with the dogs Hidradenitis Suppurativa - 11/18/2021 Acne Vulgaris - 11/18/2021 Lymph Node Enlargement - 11/18/2021 Generalized Seizures (Hcc) - 03/03/2021 Tension Headaches - 03/03/2021 Headache, Rebound - 03/03/2021 Shortening, Leg, Congenital, Left - 01/04/2021 Scoliosis Concern - 01/04/2021 Seizure Disorder (Hcc) - 01/04/2021 Migraine Without Aura, Not Intractable, With Status Migrainosus - 01/04/2021 Obesity, Class III, BMI >= 40 - 01/03/2021 Social History Tobacco Use Smoking status: Never Smokeless tobacco: Never Vaping Use Vaping status: Never Used Substance Use Topics Alcohol use: Not Currently Drug use: Never Review of Systems Respiratory: Negative. Cardiovascular: Negative. Gastrointestinal: Positive for abdominal pain. OBJECTIVE BP 118/84 Pulse 72 Wt 248 lb 10.9 oz (112.8kg) SpO2 98% LMP 10/31/2024 Physical Exam Vitals and nursing note reviewed. Constitutional: General: She is awake. She is not in acute distress. Appearance: Normal appearance. She is well-developed and well-groomed. She is not ill-appearing, toxic-appearing or diaphoretic. HENT: Head: Normocephalic. Right Ear: External ear normal. Left Ear: External ear normal. Nose: Nose normal. Eyes: General: Vision grossly intact. Conjunctiva/sclera: Conjunctivae normal. Pupils: Pupils are equal, round, and reactive to light. Neck: Vascular: No JVD. Trachea: Trachea normal. Cardiovascular: Rate and Rhythm: Normal rate and regular rhythm. Pulses: Normal pulses. Heart sounds: Normal heart sounds. No murmur heard. Pulmonary: Effort: Pulmonary effort is normal. No accessory muscle usage, prolonged expiration or respiratory distress. Breath sounds: Normal breath sounds. Musculoskeletal: Cervical back: Neck supple. Skin: General: Skin is warm and dry. Capillary Refill: Capillary refill takes less than 2 seconds. Neurological: General: No focal deficit present. Mental Status: She is alert and oriented to person, place, and time. Mental status is at baseline. Psychiatric: Attention and Perception: Attention and perception normal. Mood and Affect: Mood and affect normal. Speech: Speech normal. Behavior: Behavior normal. Behavior is cooperative. Thought Content: Thought content normal. Cognition and Memory: Cognition and memory normal. Judgment: Judgment normal. ASSESSMENT/PLAN: 1. Hypertension, essential - ICD9: 401.9, ICD10: I10 (primary diagnosis) - Controlled - Stop losartan, increase propranolol. - Recommend home blood pressure m (more content not included)... Normal [facility] [id number] 10-28-2024 [id number] HNO ID: [id number] Author: LEYLA FREITAS RN Service: ? Author Type: Registered Nurse Type: [id number] Filed: 10/28/2024 10:50 Note Text: The patient received a copy of EGD discharge instructions that contain information for how to contact the physician who performed the procedure and when to seek medical care. Normal [facility] EGD Study observation Narrat iveon 10-28-2024 Veron[facility] Gastrointestinal Endoscopy Patient Name: Poly Armando Procedure Date: 10/28/2024 10:11 AM Date of : 1995 Admit Type: Outpatient Age: 29 Gender: Female Note Status: Finalized Procedure: Upper GI endoscopy Indications: Epigastric abdominal pain, Abdominal bloating, Endoscopy to assess diarrhea in patient suspected of having celiac disease Providers: Tyra Claros MD Patient Profile: Refer to note in patient chart for documentation of history and physical. Referring Physician: Tricia Walker (Referring MD) Medicines: Midazolam 5 mg IV, Fentanyl 100 micrograms IV, Diphenhydramine 50 mg IV Complications: No immediate complications. Requesting Provider: Procedure: Pre-Anesthesia Assessment: - Prior to the procedure, a History and Physical was performed, and patient medications and allergies were reviewed. The patient is competent. The risks and benefits of the procedure and the sedation options and risks were discussed with the patient. All questions were answered and informed consent was obtained. Patient identification and proposed procedure were verified by the physician in the pre-procedure area. Mental Status Examination: alert and oriented. Airway Examination: normal oropharyngeal airway and neck mobility. Respiratory Examination: clear to auscultation. CV Examination: normal. Prophylactic Antibiotics: The patient does not require prophylactic antibiotics. Prior Anticoagulants: The patient has taken no anticoagulant or antiplatelet agents. ASA Grade Assessment: III - A patient with severe systemic disease. After reviewing the risks and benefits, the patient was deemed in satisfactory condition to undergo the procedure. The anesthesia plan was to use moderate sedation / analgesia (conscious sedation). Immediately prior to administration of medications, the patient was re-assessed for adequacy to receive sedatives. The heart rate, respiratory rate, oxygen saturations, blood pressure, adequacy of pulmonary ventilation, and response to care were monitored throughout the procedure. The physical status of the patient was re-assessed after the procedure. After obtaining informed consent, the endoscope was passed under direct vision. Throughout the procedure, the patient's blood pressure, pulse, and oxygen saturations were monitored continuously. The Endoscope was introduced through the mouth, and advanced to the third part of duodenum. The upper GI endoscopy was accomplished without difficulty. The patient tolerated the procedure. Moderate Sedation: The administration of moderate sedation was initiated at 10:20. Moderate (conscious) sedation was personally administered by the endoscopist. The following parameters were monitored: oxygen saturation, heart rate, blood pressure, respiratory rate, EKG, adequacy of pulmonary ventilation, and response to care. Total physician intraservice time was 14 minutes. Findings: The first portion of the duodenum, second portion of the duodenum and third portion of the duodenum were normal. Biopsies for histology were taken with a cold forceps for evaluation of celiac disease. Verification of patient identification for the specimen was done by the nurse. Estimated blood loss was minimal. The entire examined stomach was normal. Biopsies were taken with a cold forceps for Helicobacter pylori testing of mucosa of antrum. Estimated blood loss was minimal. A small hiatal hernia was present. Biopsies were taken with a cold forceps for histology at [facility]. Verification of patient identification for the specimen was done by the nurse. Estimated blood loss was minimal. Impression: - Normal first portion of the duodenum, second portion of the duodenum and third portion of the duodenum. Biopsied. (more content not included)... PROVATION [facility] Radiology Study observation (narrative) [facility] HISTORY PHYSICALon HISTORY PHYSICAL HNO ID: [id number] Author: TYRA CLAROS MD Service: General Surgery Author Type: Physician Type: H&P Filed: 10/28/2024 09:34 Note Text: Poly Armando is a 29 year old female who presents for Liver Disease (Fatty Liver Disease. Pt also states she has also passed whole pills in her stool. Occasional abdominal pain ). PMHx of NAFLD, seizures, uterine fibroid Patient tells me that she dealing with several GI symptoms. Notes that she has been dealing with indigestion and gas production. Feeling acid up into her chest. Will occasionally take an OTC antacid. No dysphagia, nausea or vomiting. Has had two separate episodes of RUQ pain that gets so severe. Will get intense bloating with this as well. Appetite is good. Weight is stable. Notes that she is having alternating bowel habits, mostly diarrhea. Will have two episodes of diarrhea and seeing undigested pills in her stools. Will occasionally see food. No rectal bleeding or black stools. No smoking or alcohol use. Aunt had colon cancer. Has two professional tattoos. No IVDU, service, blood transfusions. HIDA 08/14/2024: IMPRESSION: Normal gallbladder ejection fraction. RUQ US 08/02/2024: IMPRESSION: No acute findings. Mild hepatic steatosis. Latest Ref Rng 08/08/2024 Test Result Negative for H. Pylori antigen by EIA Negative for Helicobacter pylori antigen by EIA Latest Ref Rng 07/14/2024 WBC 3.70 - 11.00 k/uL 5.88 RBC 3.90 - 5.20 m/uL 4.54 Hemoglobin 11.5 - 15.5 g/dL 13.0 Hematocrit 36.0 - 46.0 % 40.1 MCV 80.0 - 100.0 fL 88.3 MCH 26.0 - 34.0 pg 28.6 MCHC 30.5 - 36.0 g/dL 32.4 RDW-CV 11.5 - 15.0 % 11.5 Platelet Count 150 - 400 k/uL 250 MPV 9.0 - 12.7 fL 9.2 Neut% % 46.6 Abs Neut (ANC) 1.45 - 7.50 k/uL 2.74 Lymph% % 46.1 Abs Lymph 1.00 - 4.00 k/uL 2.71 [place]% % 5.4 Abs [place] <0.87 k/uL 0.32 Eosin% % 1.2 Abs Eosin <0.46 k/uL 0.07 Baso% % 0.5 Abs Baso <0.11 k/uL 0.03 Immature Gran % % 0.2 IMMATURE GRANS (ABS) <0.10 k/uL <0.03 NRBC /100 WBC 0.0 Absolute nRBC <0.01 k/uL <0.01 DTYPE Auto Protein, Total 6.3 - 8.0 g/dL 7.3 Albumin 3.9 - 4.9 g/dL 4.2 Calcium 8.5 - 10.2 mg/dL 8.8 Bilirubin, Total 0.2 - 1.3 mg/dL 0.2 Alkaline Phosphatase 34 - 123 U/L 73 AST 13 - 35 U/L 14 ALT 7 - 38 U/L 14 Glucose 74 - 99 mg/dL 133 (H) BUN 7 - 21 mg/dL 14 Creatinine 0.58 - 0.96 mg/dL 0.78 Sodium 136 - 144 mmol/L 137 Potassium 3.7 - 5.1 mmol/L 4.0 Chloride 98 - 107 mmol/L 100 CO2 22 - 30 mmol/L 25 Anion Gap 8 - 15 mmol/L 12 eGFR >=60 mL/min/1.73m? 106 SHALONDA Negative Negative Legend: (H) High Record Review: [facility] / Outside records reviewed. PAST MEDICAL HISTORY PAST MEDICAL HISTORY Diagnosis Date Headaches NAFLD (nonalcoholic fatty liver disease) Prediabetes Seizure (HCC) Uterine fibroid PAST SURGICAL HISTORY PAST SURGICAL HISTORY Procedure Laterality Date ANESTH, SECTION 2012,2014,2016 LIGATE FALLOPIAN TUBE Allergies: ALLERGIES ALLERGIES Allergen Reactions Lisinopril Intolerance Tape [Adhesive Tape* Rash Medications: CURRENT MEDICATIONS desvenlafaxine ER (PRISTIQ) 100 mg 24 hr tablet Take 1 tablet by mouth once daily. metFORMIN (GLUCOPHAGE) 500 mg tablet Take 1 tablet by mouth two times a day with meals. losartan (COZAAR) 25 mg tablet Take 1 tablet by mouth once daily. propranolol ER (INDERAL LA) 80 mg 24 hr capsule Take 1 capsule by mouth once daily. (Patient not taking: Reported on 10/14/2024) FAMILY HISTORY FAMILY HISTORY Problem Relation Age of Onset DVT Mother Hypertension Mother Hypertension Father Diabetes Father Cancer Son Colon Cancer Maternal Aunt OCCUPATION AND MARITAL STATUS Employer And Job Title: None on file Years Of Education Completed: Not specified Marital Status: with 3 children SOCIAL HISTORY Social History Tobacco Use Smoking status: Never Smokeless tobacco: Never Vaping Use Vaping status: Never Used Substance Use Topics Alcohol use: Not Currently Drug use: Never Review of Systems: Review of Systems Gastrointestinal: Gas, Heartburn All other systems reviewed and are negative. Are you taking any blood thinners? No Physical Examination: BP 126/84 Pulse 67 Ht 5' 3 (1.60m) Wt 247 lb 14.4 oz (112.4kg) LMP 07/08/2024 BMI 43.92 kg/(m2). Physical Exam Constitutional: Appearance: Normal appearance. She is obese. HENT: Head: Normocephalic and atraumatic. Eyes: General: No scleral icterus. Extraocular Movements: Extraocular movements intact. Conjunctiva/sclera: Conjunctivae normal. Pupils: Pupils are equal, round, and reactive to light. Cardiovascular: Rate and Rhythm: Normal rate and regular rhythm. Pulses: Normal pulses. Heart sounds: Normal heart sounds. Pulmonary: Effort: Pulmonary effort is normal. Breath sounds: Normal breath sounds. Abdominal: General: Abdomen is flat. Bowel sounds are normal. Palpations: Abdomen is soft. Tenderness: T (more content not included)... Normal [facility] SURGICAL PATHOLOGYon 025 CASE REPORT Normal [facility] Comment on above: Order Comment: Radha wilson Type: TISSUE SPECIMENOrdering Facility: [facility] Address: [address] [place] [address] Result Comment: Surg [facility] Pathology Report Case: [id number] Authorizing Provider: Tyra Claros MD Collected: 10/28/2024 10:29 AM Ordering Location: Ambulatory Surgery Received: 10/28/2024 12:24 PM Pathologist: Emy Morel MD Specimens: A) - Small Bowel, Duodenum, Biopsy B) - Stomach, Antrum, Biopsy, check for h/h C) - Esophagogastric Junction, Biopsy Performed By: #### S ####[facility] [id number] [address] [place] DIAGNOSIS COMMENT A. On review of the patient's medications, therapy with losartan is noted. Angiotensin II receptor antagonists (i.e. olmesartan and losartan) have been shown to be associated with villous atrophy and intraepithelial lymphocytosis, mimicking gluten-sensitive enteropathy. Given the patient's treatment with losartan, this is favored; however, other causes of intraepithelial lymphocytosis, such as infectious and post-infectious processes, Helicobacter pylori-induced gastritis, bacterial overgrowth, gluten sensitive enteropathy and other food protein intolerances, Crohn's disease, and other medications (i.e. non-steroidal anti-inflammatory agents), among others, cannot be entirely excluded. Correlation with the patient's clinical history and serologic studies is recommended. Normal [facility] Comment on above: Order Comment: Radha wilson Type: TISSUE SPECIMENOrdering Facility: [facility] Address: [address] [place] [address] Performed By: #### S ####[facility] [id number] [address] FINAL DIAGNOSIS Normal [facility] Comment on above: Order Comment: Radha wilson Type: TISSUE SPECIMENOrdering Facility: [facility] Address: [address] [place] [address] Result Comment: Miguel damico, biopsy: - Duodenal mucosa with an intact villous architecture and intraepithelial lymphocytosis, see comment. B. Stomach, antrum, biopsy: - Mild reactive gastropathy. - No intestinal metaplasia or morphologic evidence of Helicobacter pylori organisms. C. Gastroesophageal junction, biopsy: - Hyperplastic squamous esophageal mucosa with reactive epithelial changes and ulcer. - No morphologic evidence of fungal organisms or viral cytopathic effect. Performed By: #### S ####[facility] LABCLIA [id number] [address] [place] FINAL PERFORMING LAB Normal [facility] Comment on above: Order Comment: Speci men Type: TISSUE SPECIMENOrdering Facility: [facility] Address: [address] [place] [address] Result Comment: Diag nostic interpretation performed at: [facility], [address] [place] [address] CLIA# [id number] Clinical Services Consultant: Fransico Gabriel MD Performed By: #### S ####[facility] LABCLIA [id number] [address] GROSS DESCRIPTION Normal [facility] Comment on above: Order Comment: Speci men Type: TISSUE SPECIMENOrdering Facility: [facility] Address: [address] [place] [address] Result Comment: A. S mall Bowel, Duodenum, Biopsy Received in formalin are two pieces of veliz, soft tissue aggregating to 0.4 x 0.2 x 0.2 cm. Totally submitted in one cassette. B. Stomach, Antrum, Biopsy Received in formalin are two pieces of veliz, soft tissue aggregating to 0.5 x 0.3 x 0.1 cm. Totally submitted in one cassette. C. Esophagogastric Junction, Biopsy Received in formalin is one piece of veliz, soft tissue measuring 0.4 x 0.2 x 0.1 cm. Totally submitted in one cassette. JCDM October 28, 2024 3:51 PM Gross examination performed at [facility], [address] [place] [address] Performed By: #### S ####[facility] LABCLIA [id number] NORA CLEMENTS [id number] [id number] [place] UA DIP,URINE HCG (POC)on Beta HCG ( test) Ql (U) Negative Negative [facility] Comment on above: Location:[facility], [address] [facility], [place], [address] Relocation Specialist (POCT) Internal QC OK [facility] Location:[facility], [address] [facility], [place], [address] [facility] POINT OF CARE [facility] Upper GI endoscopyon 025 Upper GI endoscopy [facility] Gastrointestinal Endoscopy Patient Name: Poly Armando Procedure Date: 10/28/2024 10:11 AM Date of : 1995 Admit Type: Outpatient Age: 29 Gender: Female Note Status: Finalized Procedure: Upper GI endoscopy Indications: Epigastric abdominal pain, Abdominal bloating, Endoscopy to assess diarrhea in patient suspected of having celiac disease Providers: Tyra Claros MD Patient Profile: Refer to note in patient chart for documentation of history and physical. Referring Physician: Tricia Walker (Referring MD) Medicines: Midazolam 5 mg IV, Fentanyl 100 micrograms IV, Diphenhydramine 50 mg IV Complications: No immediate complications. Requesting Provider: Procedure: Pre-Anesthesia Assessment: - Prior to the procedure, a History and Physical was performed, and patient medications and allergies were reviewed. The patient is competent. The risks and benefits of the procedure and the sedation options and risks were discussed with the patient. All questions were answered and informed consent was obtained. Patient identification and proposed procedure were verified by the physician in the pre-procedure area. Mental Status Examination: alert and oriented. Airway Examination: normal oropharyngeal airway and neck mobility. Respiratory Examination: clear to auscultation. CV Examination: normal. Prophylactic Antibiotics: The patient does not require prophylactic antibiotics. Prior Anticoagulants: The patient has taken no anticoagulant or antiplatelet agents. ASA Grade Assessment: III - A patient with severe systemic disease. After reviewing the risks and benefits, the patient was deemed in satisfactory condition to undergo the procedure. The anesthesia plan was to use moderate sedation / analgesia (conscious sedation). Immediately prior to administration of medications, the patient was re-assessed for adequacy to receive sedatives. The heart rate, respiratory rate, oxygen saturations, blood pressure, adequacy of pulmonary ventilation, and response to care were monitored throughout the procedure. The physical status of the patient was re-assessed after the procedure. After obtaining informed consent, the endoscope was passed under direct vision. Throughout the procedure, the patient's blood pressure, pulse, and oxygen saturations were monitored continuously. The Endoscope was introduced through the mouth, and advanced to the third part of duodenum. The upper GI endoscopy was accomplished without difficulty. The patient tolerated the procedure. Moderate Sedation: The administration of moderate sedation was initiated at 10:20. Moderate (conscious) sedation was personally administered by the endoscopist. The following parameters were monitored: oxygen saturation, heart rate, blood pressure, respiratory rate, EKG, adequacy of pulmonary ventilation, and response to care. Total physician intraservice time was 14 minutes. Findings: The first portion of the duodenum, second portion of the duodenum and third portion of the duodenum were normal. Biopsies for histology were taken with a cold forceps for evaluation of celiac disease. Verification of patient identification for the specimen was done by the nurse. Estimated blood loss was minimal. The entire examined stomach was normal. Biopsies were taken with a cold forceps for Helicobacter pylori testing of mucosa of antrum. Estimated blood loss was minimal. A small hiatal hernia was present. Biopsies were taken with a cold forceps for histology at [facility]. Verification of patient identification for the specimen was done by the nurse. Estimated blood loss was minimal. Impression: - Normal first portion of the duodenum, second portion of the duodenum and third portion of the duodenum. Biopsied. - Normal stomach. Biopsied. - Small hiatal hernia. Biopsied. Recommendation: - Discharge patient to home (ambulatory). - Resume previous diet. - Continue present medications. - Await pathology results. - Return to GI clinic at the next available appointment. Procedure Code(s): --- Professional --- 96243, Esophagogastroduodeno scopy, flexible, transoral; with biopsy, single or multiple 94928, 59, Moderate sedation services provided by the same physician or other qualified health rn critical care performing the diagnostic or therapeutic service that the sedation supports, requiring the presence of an independent trained observer to assist in the monitoring of the patient's level of consciousness and physiological status; initial 15 minutes of intraservice time, patient age 5 years or older Diagnosis Code(s): --- Professional --- R19.7, Diarrhea, unspecified R14.0, Abdominal distension (gaseous) R10.13, Epigastric pain K44.9, Diaphragmatic hernia without obstruction or gangrene CPT copyright 2020 [employer]. All rights reserved. The codes (more content not included)... Normal [facility] CELIAC SCREENon 10-16-2024 GLIAD DEAMIDATED IGA QUAL Negative Normal Negative, Test not Indicated [facility] [place] Comment on above: Order Comment: Radha wilson Type: BLOOD SPECIMEN Ordering Facility: [facility] Address: [address] [place] [address] Result Comment: This is used as an aid in diagnosis of celiac disease. Clinical correlation is required. The following results were obtained with an [employer] QUANTA Lite Gliadin IgA VANIA Gliadin. Gliadin IgA values obtained with different manufacturers' assay methods may not be used interchangeably. The magnitude of the reported IgA levels cannot be correlated to an endpoint titer. Performed By: #### L [id number] #### [facility] CLIA [id number] [address] [place] [address] [place] Gliadin peptide IgA Qn (S) 3 Units Normal <[address] [facility] Comment on above: Order Comment: Radha wilson Type: BLOOD SPECIMEN Ordering Facility: [facility] Address: [address] [place] [address] Performed By: #### L [id number] #### [facility] CLIA [id number] [address] [place] [address] [place] INTERPRETATION No serological evidence of celiac disease, however, if celiac disease is clinically suspected and patient is not on gluten-free diet, histological diagnosis may be considered. HLA testing may help with risk assessment. Normal [facility] Comment on above: Order Comment: Radha wilson Type: BLOOD SPECIMEN Ordering Facility: [facility] Address: [address] [place] [address] Performed By: #### L [id number] #### [facility] CLIA [id number] [address] [place] [address] [place] TRANSGLUTAMINASE IGA ABS INTERPRETATION Negative Normal Negative [facility] [place] Comment on above: Order Comment: Radha wilson Type: BLOOD SPECIMEN Ordering Facility: [facility] Address: [address] [place] [address] Result Comment: The following results were obtained with FXTripA [place] [employer] R h-tTG IgA VANIA.???R h-tTG IgA values obtained with different manufacturers' assay methods may not be used interchangeably. The magnitude of the reported IgA levels cannot be corelated to an endpoint???concentration. This is used as an aid in diagnosis of celiac disease. Clinical correlation is required. Performed By: #### L [id number] #### [facility] CLIA [id number] [address] [place] [address] [place] tTG IgA Qn (S) <2 Normal <[address] [facility] Comment on above: Order Comment: Radha wilson Type: BLOOD SPECIMEN Ordering Facility: [facility] Address: [address] [place] [address] Performed By: #### L [id number] #### [facility] CLIA [id number] [address] [place] [address] [place] Calprotectin (Stl) [Mass/Mas s]on 10-16-2024 CALPROTECTIN, FECAL INTERP Normal Normal Normal [facility] Comment on above: Order Comment: Radha wilson Type: STOOL SPECIMENOrdering Facility: [facility] Address: [address] [place] [address] Result Comment: Inte rpretation: <50.0 ug/g: Normal 50.0 ug/g - 120.0 ug/g: Borderline elevated. Re-evaluation in 4-6 weeks is recommended if clinically indicated. >120.0 ug/g: Elevated Performed By: #### P ANCEF, 60166-5 ####[facility] LABCLIA [id number] [place] [address] [place] CALPROTECTIN, FECAL QUANTITATIVE 20.2 ug/g Normal <50 [facility] Comment on above: Order Comment: Radha wilson Type: STOOL SPECIMENOrdering Facility: [facility] Address: [address] [place] [address] Performed By: #### P ANC, 99234-3 ####[facility] LABCLIA [id number] [place] [address] [place] FAT, FECAL QUALon 10-16-2024 FAT, FECAL - NEUTRAL Normal Normal Normal [facility] Comment on above: Order Comment: Speci men Type: STOOL SPECIMENOrdering Facility: [facility] Address: [address] [place] [address] Performed By: #### F FATQL ####[facility] LABORATORIESIA [id number] [place] [address] FAT, FECAL - SPLIT Normal Normal Normal [facility] Comment on above: Order Comment: Speci men Type: STOOL SPECIMENOrdering Facility: [facility] Address: [address] [place] [address] Result Comment: INTE RPRETIVE INFORMATION: Fecal Fat Qualitative Neutral fats include the monoglycerides, diglycerides, and triglycerides while split fats are the free fatty acids that are liberated from them. Impaired synthesis or secretion of pancreatic enzymes or bile may cause an increase in neutral fats while an increase in split fats suggests impaired absorption of nutrients. Performed By: [facility] [address] [place] [id number] Clinical Services Consultant: Chaparro Lopez MD, PhD CLIA Number: [id number] Performed By: #### F FATQL ####[facility] LABORATORIESCLIA [id number] [place] [address] G lamblia+Cryptosp Ag Stl Ql IAon 10-16-2024 G. lamblia+Cryptosporidium sp Ag IA Ql (Stl) CRYPTOSPORIDIUM ANTIGEN BY EIA: Negative for Cryptosporidium by EIA. GIARDIA ANTIGEN BY EIA: Negative for Giardia lamblia by EIA. Normal [facility] Comment on above: Performed By: #### 4 8059-0 ####[facility] LABCLIA [id number] [place] [address] [place] IgA SerPl-mCncon 10-16-2024 IgA [Mass/Vol] 222 mg/dL Normal 70-[address] [facility] Comment on above: Order Comment: Speci men Type: BLOOD SPECIMEN Ordering Facility: [facility] Address: [address] [place] [address] Performed By: #### 2 [id number] #### [facility] CLIA [id number] [address] [place] [address] [place] PANC ELASTASE, FECALon 10-16 ELASTASE INTERPRETATION Normal Normal Normal [facility] Comment on above: Order Comment: Speci men Type: STOOL SPECIMENOrdering Facility: [facility] Address: [address] [place] [address] Performed By: #### P SUDHEER, 76489-7 ####[facility] LABCLIA [id number] [address] ELASTASE-1 CONCENTRATION >800 Normal >=200 [facility] Comment on above: Order Comment: Speci men Type: STOOL SPECIMENOrdering Facility: [facility] Address: [address] [place] [address] Result Comment: Inte rpretation: <100 ug/g: Severe Exocrine Pancreatic Insufficiency 100-199 ug/g: Mild to Moderate Exocrine Pancreatic Insufficiency >=200 ug/g: Normal Performed By: #### P ANCEF, 09973-4 ####[facility] LABCLIA [id number] [address] [place] CNOVon 10-14-2024 CNOV Office Visit ([facility] ) POLY ARMANDO ([id number]) 1995 F Date Time Provider Department 10/14/24 8:50 AM TRICIA GARCIA GSTPARMINDERR During your visit today, we recorded the following information about you: Pulse Blood pressure Weight Height 67/minute 126/84 112.4 kg 1.6 m Tricia Garcia PA-C 10/14/2024 9:09 AM Signed CHIEF COMPLAINT: Patient presents with: Liver Disease: Fatty Liver Disease. Pt also states she has also passed whole pills in her stool. Occasional abdominal pain This consult was requested by Wilson Wharton APRN.CNP for an opinion regarding fatty liver. My final recommendations will be communicated to the requesting health care provider by way of the shared medical record for internal providers or letter via the [employer] for external providers. HPI: Poly Armando is a 29 year old female who presents for Liver Disease (Fatty Liver Disease. Pt also states she has also passed whole pills in her stool. Occasional abdominal pain ). PMHx of NAFLD, seizures, uterine fibroid Patient tells me that she dealing with several GI symptoms. Notes that she has been dealing with indigestion and gas production. Feeling acid up into her chest. Will occasionally take an OTC antacid. No dysphagia, nausea or vomiting. Has had two separate episodes of RUQ pain that gets so severe. Will get intense bloating with this as well. Appetite is good. Weight is stable. Notes that she is having alternating bowel habits, mostly diarrhea. Will have two episodes of diarrhea and seeing undigested pills in her stools. Will occasionally see food. No rectal bleeding or black stools. No smoking or alcohol use. Aunt had colon cancer. Has two professional tattoos. No IVDU, service, blood transfusions. HIDA 08/14/2024: IMPRESSION: Normal gallbladder ejection fraction. RUQ US 08/02/2024: IMPRESSION: No acute findings. Mild hepatic steatosis. Latest Ref Rng 08/08/2024 Test Result Negative for H. Pylori antigen by EIA Negative for Helicobacter pylori antigen by EIA Latest Ref Rng 07/14/2024 WBC 3.70 - 11.00 k/uL 5.88 RBC 3.90 - 5.20 m/uL 4.54 Hemoglobin 11.5 - 15.5 g/dL 13.0 Hematocrit 36.0 - 46.0 % 40.1 MCV 80.0 - 100.0 fL 88.3 MCH 26.0 - 34.0 pg 28.6 MCHC 30.5 - 36.0 g/dL 32.4 RDW-CV 11.5 - 15.0 % 11.5 Platelet Count 150 - 400 k/uL 250 MPV 9.0 - 12.7 fL 9.2 Neut% % 46.6 Abs Neut (ANC) 1.45 - 7.50 k/uL 2.74 Lymph% % 46.1 Abs Lymph 1.00 - 4.00 k/uL 2.71 [place]% % 5.4 Abs [place] <0.87 k/uL 0.32 Eosin% % 1.2 Abs Eosin <0.46 k/uL 0.07 Baso% % 0.5 Abs Baso <0.11 k/uL 0.03 Immature Gran % % 0.2 IMMATURE GRANS (ABS) <0.10 k/uL <0.03 NRBC /100 WBC 0.0 Absolute nRBC <0.01 k/uL <0.01 DTYPE Auto Protein, Total 6.3 - 8.0 g/dL 7.3 Albumin 3.9 - 4.9 g/dL 4.2 Calcium 8.5 - 10.2 mg/dL 8.8 Bilirubin, Total 0.2 - 1.3 mg/dL 0.2 Alkaline Phosphatase 34 - 123 U/L 73 AST 13 - 35 U/L 14 ALT 7 - 38 U/L 14 Glucose 74 - 99 mg/dL 133 (H) BUN 7 - 21 mg/dL 14 Creatinine 0.58 - 0.96 mg/dL 0.78 Sodium 136 - 144 mmol/L 137 Potassium 3.7 - 5.1 mmol/L 4.0 Chloride 98 - 107 mmol/L 100 CO2 22 - 30 mmol/L 25 Anion Gap 8 - 15 mmol/L 12 eGFR >=60 mL/min/1.73m? 106 SHALONDA Negative Negative Legend: (H) High Record Review: [facility] / Outside records reviewed. PAST MEDICAL HISTORY Diagnosis Date Headaches NAFLD (nonalcoholic fatty liver disease) Prediabetes Seizure (HCC) Uterine fibroid PAST SURGICAL HISTORY Procedure Laterality Date ANESTH, SECTION 2012,2014,2017 LIGATE FALLOPIAN TUBE Allergies: ALLERGIES Allergen Reactions Lisinopril Intolerance Tape [Adhesive Tape* Rash Medications: desvenlafaxine ER (PRISTIQ) 100 mg 24 hr tablet Take 1 tablet by mouth once daily. metFORMIN (GLUCOPHAGE) 500 mg tablet Take 1 tablet by mouth two times a day with meals. losartan (COZAAR) 25 mg tablet Take 1 tablet by mouth once daily. propranolol ER (INDERAL LA) 80 mg 24 hr capsule Take 1 capsule by mouth once daily. (Patient not taking: Reported on 10/14/2024) FAMILY HISTORY Problem Relation Age of Onset DVT Mother Hypertension Mother Hypertension Father Diabetes Father Cancer Son Colon Cancer Maternal Aunt Employer And Job Title: None on file Years Of Education Completed: Not specified Marital Status: with 3 children Social History Tobacco Use Smoking status: Never Smokeless tobacco: Never Vaping Use Vaping status: Never Used Substance Use Topics Alcohol use: Not Currently Drug use: Never Review of Systems: Review of Systems Gastrointestinal: Gas, Heartburn All other systems reviewed and are negative. Are you taking any blood thinners? No Physical Examination: BP 126/84 Pulse 67 Ht 5' 3 (1.60m) Wt 247 lb 14.4 oz (112.4kg) LMP 07/08/2024 BMI 43.92 kg/(m2). Physical Exam Constitutional: Appearan (more content not included)... Normal [facility] Biliary ducts and Gallbla dder Views for patency of biliary structures and ejection fraction W sincalide and W radionuclide Yi 08-14-2024 IMPRESSION: Normal gallbladder ejection fraction. Relief Cook: ANGÉLICA Transcribe Date/Time: Aug 14 2024 11:17A Dictated by : ANU ARREOLA DO This examination was interpreted and the report reviewed and electronically signed by: ABBIE BOSCH MD on Aug 14 2024 11:25AM [facility] DIVISION OF RADIOLOGY * * *Final Report* * * DATE OF EXAM: Aug 14 2024 10:55AM [address] HEPATOBILIARY W EF AND/OR RX / PROCEDURE REASON: Right upper quadrant abdominal pain * * * * Physician Interpretation * * * * EXAMINATION: HEPATOBILIARY SCAN WITH GALLBLADDER EJECTION FRACTION CLINICAL HISTORY: Right upper quadrant abdominal pain . TECHNIQUE: 5.6 millicuries of Tc-99m Choletec administered IV. Dynamic planar imaging of the abdomen acquired for 30 minutes. Next, 2.23 micrograms of CCK was administered IV followed by additional imaging to calculate a gallbladder ejection fraction. CORRELATION: Ultrasound 08/02/2024, CT abdomen pelvis 11/05/2023 RESULT: Liver: Within normal limits. Gallbladder: Activity present by one hour, indicating cystic duct patency. * Ejection fraction (EF): 70% (normal > 35% and < 80%) CBD: Activity present in the proximal small bowel by 1 hour, indicating patency. Other: No enterogastric reflux. DIVISION OF RADIOLOGY Provider, Paulina Ledezma - 08/14/2024 * * *Final Report* * * DATE OF EXAM: Aug 14 2024 10:55AM WON 0021 - [place] HEPATOBILIARY W EF AND/OR RX / PROCEDURE REASON: Right upper quadrant abdominal pain * * * * Physician Interpretation * * * * EXAMINATION: HEPATOBILIARY SCAN WITH GALLBLADDER EJECTION FRACTION CLINICAL HISTORY: Right upper quadrant abdominal pain . TECHNIQUE: 5.6 millicuries of Tc-99m Choletec administered IV. Dynamic planar imaging of the abdomen acquired for 30 minutes. Next, 2.23 micrograms of CCK was administered IV followed by additional imaging to calculate a gallbladder ejection fraction. CORRELATION: Ultrasound 08/02/2024, CT abdomen pelvis 11/05/2023 RESULT: Liver: Within normal limits. Gallbladder: Activity present by one hour, indicating cystic duct patency. * Ejection fraction (EF): 70% (normal > 35% and < 80%) CBD: Activity present in the proximal small bowel by 1 hour, indicating patency. Other: No enterogastric reflux. IMPRESSION IMPRESSION: Normal gallbladder ejection fraction. Relief Cook: ANGÉLICA Transcribe Date/Time: Aug 14 2024 11:17A Dictated by : ANU ARREOLA, This examination was interpreted and the report reviewed and electronically signed by: ABBIE BOSCH MD on Aug 14 2024 11:25AM EST [facility] Radiology Study observation (narrative) [facility] Biliary ducts and Gallbla dder Views for patency of biliary structures and ejection fraction W sincalide and W radionuclide IVOrdered By: Ccf Provider on 08-14-2024 [facility] NM HEPATOBILIARY W EF AND/OR RXon 08-14-2024 NM HEPATOBILIARY W EF AND/OR RX * * *Final Report* * * DATE OF EXAM: Aug 14 2024 10:55AM WON 0021 - [place] HEPATOBILIARY W EF AND/OR RX / PROCEDURE REASON: Right upper quadrant abdominal pain * * * * Physician Interpretation * * * * EXAMINATION: HEPATOBILIARY SCAN WITH GALLBLADDER EJECTION FRACTION CLINICAL HISTORY: Right upper quadrant abdominal pain . TECHNIQUE: 5.6 millicuries of Tc-99m Choletec administered IV. Dynamic planar imaging of the abdomen acquired for 30 minutes. Next, 2.23 micrograms of CCK was administered IV followed by additional imaging to calculate a gallbladder ejection fraction. CORRELATION: Ultrasound 08/02/2024, CT abdomen pelvis 11/05/2023 RESULT: Liver: Within normal limits. Gallbladder: Activity present by one hour, indicating cystic duct patency. * Ejection fraction (EF): 70% (normal > 35% and < 80%) CBD: Activity present in the proximal small bowel by 1 hour, indicating patency. Other: No enterogastric reflux. IMPRESSION: Normal gallbladder ejection fraction. Relief Cook: ANGÉLICA Transcribe Date/Time: Aug 14 2024 11:17A Dictated by : ANU ARREOLA, DO This examination was interpreted and the report reviewed and electronically signed by: ABBIE BOSCH MD on Aug 14 2024 11:25AM EST [id number] N Normal [facility] H pylori Ag Stl Ql IAon 07-25 H. pylori Ag IA Ql (Stl) H.PYLORI EIA RESULT: Negative for Helicobacter pylori antigen by EIA Normal [facility] Comment on above: Performed By: #### 1 [id number] ####[facility] LABCLIA [id number] [place] [id number] [facility] 08-04-2024 CNPN Telephone (INTMWS) POLY ARMANDO ([id number]) 1995 F Date Time Provider Department 08/04/24 WILSON WHARTON INTDeanaWS During your visit today, we recorded the following information about you: Wilson Wharton APRN.CNP 08/04/2024 1:32 PM Signed Addended by: WILSON WHARTON on: 08/04/2024 01:32 PM Modules accepted: Orders Jr Danna 08/04/2024 2:43 PM Signed Patient has been contacted and scheduled Randall Khoury 08/08/2024 10:27 PM Signed Addended by: RANDALL KHOURY on: 08/08/2024 10:27 PM Modules accepted: Orders Allergies As of Date: 08/04/2024 Noted Allergy Reaction LISINOPRIL 01/20/2022 5 - Intolerance Date Reviewed: 08/01/2024 Reviewed by: Wilson Wharton APRN.BOOM MASTER - Fully Assessed Reason for Visit: Results [95] Primary Visit Diagnosis:Right upper quadrant abdominal pain [R10.11] Order(s):NM HEPATOBILIARY W EF AND/OR RX [[id number]] Order #: [id number] FUTURE HELICOBACTER PYLORI ANTIGEN BY EIA, STOOL [[id number]] Order #: [id number]. #:[id number] EXTRA ECOFIX CONTAINER PERFORMABLE [[id number]] Order #: [id number] FUTURE EXTRA JESSY-GARCIA CONTAINER PERFORMABLE [[id number]] Order #: [id number] FUTURE EXTRA ECOFIX CONTAINER PERFORMABLE [[id number]] Order #: [id number]. #:[id number] EXTRA JESSY-GARCIA CONTAINER PERFORMABLE [[id number]] Order #: [id number]. #:[id number] Prescriptions as of 08/09/2024 - losartan (COZAAR) 25 mg tablet Take 1 tablet by mouth once daily. - propranolol ER (INDERAL LA) 80 mg 24 hr capsule Take 1 capsule by mouth once daily. - metFORMIN (GLUCOPHAGE) 500 mg tablet Take 1 tablet by mouth two times a day with meals. - desvenlafaxine ER (PRISTIQ) 100 mg 24 hr tablet Take 1 tablet by mouth once daily. 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] 01/04/2021 Scoliosis concern [Z13.828] 01/04/2021 Seizure disorder (HCC) [G40.909] 01/04/2021 Migraine without aura, not intractable, with st*01/04/2021 Elevated blood pressure reading without diagnos*01/04/2021 12/05/2021 Generalized seizures (HCC) [R56.9] 03/03/2021 Tension headaches [G44.209] 03/03/2021 Headache, rebound [G44.40] 03/03/2021 ROBERT (generalized anxiety disorder) [F41.1] 11/18/2021 Hypertension, essential [I10] 11/18/2021 Hidradenitis suppurativa [L73.2] 11/18/2021 Acne vulgaris [L70.0] 11/18/2021 Lymph node enlargement [R59.9] 11/18/2021 Breathing difficult [R06.89] 01/18/2022 07/07/2022 Shakiness [R25.1] 01/18/2022 07/07/2022 Racing heart beat [R00.0] 01/18/2022 Elevated heart rate with elevated blood pressur*01/20/2022 Encounter Status:Closed by WILSON WHARTON on 08/04/24 Normal [facility] No Panel Informationon 08-02 IMPRESSION: No acute findings. Mild hepatic steatosis. Relief Cook: ANGÉLICA Transcribe Date/Time: Aug 02 2024 10:33A Dictated by : LLOYD GARSIA MD This examination was interpreted and the report reviewed and electronically signed by: LLOYD GARSIA MD on Aug 02 2024 10:36AM [facility] RADIOLOGY No Panel InformationOrdered By: Ccf Provider on 08-02-2024 [facility] US ABD RIGHT UPPER QUADRANTo n 08-02-2024 US ABD RIGHT UPPER QUADRANT * * *Final Report* * * DATE OF EXAM: Aug 02 2024 10:33AM U 1032 - US ABD RIGHT UPPER QUADRANT / PROCEDURE REASON: Right upper quadrant abdominal pain * * * * Physician Interpretation * * * * EXAMINATION: RIGHT UPPER QUADRANT AND SPLEEN ULTRASOUND CLINICAL HISTORY: Right upper quadrant abdominal pain TECHNIQUE: Sonography of the right upper quadrant and spleen was performed. Images were obtained and stored in a permanent archive. MQ: URUQ_2 COMPARISON: CT scan 11/05/2023 RESULT: Pancreas: Normal sonographic appearance. Portions obscured: tail Liver: Echotexture: Normal, homogeneous. Echogenicity: Increased Surface contour: Smooth Lesions: None. Biliary: No intrahepatic biliary duct dilation. CBD: 0.4 cm at the hilum. Gallbladder: Normal caliber -Contents: No cholelithiasis -Wall: Normal -Other: No pericholecystic fluid. Right Kidney: No hydronephrosis. Ascites: None. Spleen: The craniocaudal length of the spleen is 11.2 cm, normal. There are no splenic lesions. IMPRESSION: No acute findings. Mild hepatic steatosis. Relief Cook: [facility] Transcribe Date/Time: Aug 02 2024 10:33A Dictated by : LLOYD GARSIA MD This examination was interpreted and the report reviewed and electronically signed by: LLOYD GARSIA MD on Aug 02 2024 10:36AM EST [id number] N Normal [facility] US ABD SPLEENon 08-02-2024 US ABD SPLEEN * * *Final Report* * * DATE OF EXAM: Aug 02 2024 10:33AM U 1039 - US ABD SPLEEN / PROCEDURE REASON: Right upper quadrant abdominal pain * * * * Physician Interpretation * * * * EXAMINATION: RIGHT UPPER QUADRANT AND SPLEEN ULTRASOUND CLINICAL HISTORY: Right upper quadrant abdominal pain TECHNIQUE: Sonography of the right upper quadrant and spleen was performed. Images were obtained and stored in a permanent archive. MQ: URUQ_2 COMPARISON: CT scan 11/05/2023 RESULT: Pancreas: Normal sonographic appearance. Portions obscured: tail Liver: Echotexture: Normal, homogeneous. Echogenicity: Increased Surface contour: Smooth Lesions: None. Biliary: No intrahepatic biliary duct dilation. CBD: 0.4 cm at the hilum. Gallbladder: Normal caliber -Contents: No cholelithiasis -Wall: Normal -Other: No pericholecystic fluid. Right Kidney: No hydronephrosis. Ascites: None. Spleen: The craniocaudal length of the spleen is 11.2 cm, normal. There are no splenic lesions. IMPRESSION: No acute findings. Mild hepatic steatosis. Relief Cook: [facility] Transcribe Date/Time: Aug 02 2024 10:33A Dictated by : LLOYD GARSIA MD This examination was interpreted and the report reviewed and electronically signed by: LLOYD GARSIA MD on Aug 02 2024 10:36AM EST [id number] N Normal [facility] US Abdomen RUQon 08-02-2024 * * *Final Report* * * DATE OF EXAM: Aug 02 2024 10:33AM U 1032 - US ABD RIGHT UPPER QUADRANT / PROCEDURE REASON: Right upper quadrant abdominal pain * * * * Physician Interpretation * * * * EXAMINATION: RIGHT UPPER QUADRANT AND SPLEEN ULTRASOUND CLINICAL HISTORY: Right upper quadrant abdominal pain TECHNIQUE: Sonography of the right upper quadrant and spleen was performed. Images were obtained and stored in a permanent archive. MQ: URUQ_2 COMPARISON: CT scan 11/05/2023 RESULT: Pancreas: Normal sonographic appearance. Portions obscured: tail Liver: Echotexture: Normal, homogeneous. Echogenicity: Increased Surface contour: Smooth Lesions: None. Biliary: No intrahepatic biliary duct dilation. CBD: 0.4 cm at the hilum. Gallbladder: Normal caliber -Contents: No cholelithiasis -Wall: Normal -Other: No pericholecystic fluid. Right Kidney: No hydronephrosis. Ascites: None. Spleen: The craniocaudal length of the spleen is 11.2 cm, normal. There are no splenic lesions. [facility] Provider, Paulina Ledezma - 08/02/2024 * * *Final Report* * * DATE OF EXAM: Aug 02 2024 10:33AM U 1032 - US ABD RIGHT UPPER QUADRANT / PROCEDURE REASON: Right upper quadrant abdominal pain * * * * Physician Interpretation * * * * EXAMINATION: RIGHT UPPER QUADRANT AND SPLEEN ULTRASOUND CLINICAL HISTORY: Right upper quadrant abdominal pain TECHNIQUE: Sonography of the right upper quadrant and spleen was performed. Images were obtained and stored in a permanent archive. MQ: URUQ_2 COMPARISON: CT scan 11/05/2023 RESULT: Pancreas: Normal sonographic appearance. Portions obscured: tail Liver: Echotexture: Normal, homogeneous. Echogenicity: Increased Surface contour: Smooth Lesions: None. Biliary: No intrahepatic biliary duct dilation. CBD: 0.4 cm at the hilum. Gallbladder: Normal caliber -Contents: No cholelithiasis -Wall: Normal -Other: No pericholecystic fluid. Right Kidney: No hydronephrosis. Ascites: None. Spleen: The craniocaudal length of the spleen is 11.2 cm, normal. There are no splenic lesions. IMPRESSION IMPRESSION: No acute findings. Mild hepatic steatosis. Relief Cook: ANGÉLICA Transcribe Date/Time: Aug 02 2024 10:33A Dictated by : LLOYD GARSIA MD This examination was interpreted and the report reviewed and electronically signed by: LLOYD GARSIA MD on Aug 02 2024 10:36AM EST [facility] Radiology Study observation (narrative) [facility] US Spleenon 08-02-2024 * * *Final Report* * * DATE OF EXAM: Aug 02 2024 10:33AM U 1039 - US ABD SPLEEN / PROCEDURE REASON: Right upper quadrant abdominal pain * * * * Physician Interpretation * * * * EXAMINATION: RIGHT UPPER QUADRANT AND SPLEEN ULTRASOUND CLINICAL HISTORY: Right upper quadrant abdominal pain TECHNIQUE: Sonography of the right upper quadrant and spleen was performed. Images were obtained and stored in a permanent archive. MQ: URUQ_2 COMPARISON: CT scan 11/05/2023 RESULT: Pancreas: Normal sonographic appearance. Portions obscured: tail Liver: Echotexture: Normal, homogeneous. Echogenicity: Increased Surface contour: Smooth Lesions: None. Biliary: No intrahepatic biliary duct dilation. CBD: 0.4 cm at the hilum. Gallbladder: Normal caliber -Contents: No cholelithiasis -Wall: Normal -Other: No pericholecystic fluid. Right Kidney: No hydronephrosis. Ascites: None. Spleen: The craniocaudal length of the spleen is 11.2 cm, normal. There are no splenic lesions. [facility] Provider, [facility] Josemanuel [place] - 08/02/2024 * * *Final Report* * * DATE OF EXAM: Aug 02 2024 10:33AM U 1039 - US ABD SPLEEN / PROCEDURE REASON: Right upper quadrant abdominal pain * * * * Physician Interpretation * * * * EXAMINATION: RIGHT UPPER QUADRANT AND SPLEEN ULTRASOUND CLINICAL HISTORY: Right upper quadrant abdominal pain TECHNIQUE: Sonography of the right upper quadrant and spleen was performed. Images were obtained and stored in a permanent archive. MQ: URUQ_2 COMPARISON: CT scan 11/05/2023 RESULT: Pancreas: Normal sonographic appearance. Portions obscured: tail Liver: Echotexture: Normal, homogeneous. Echogenicity: Increased Surface contour: Smooth Lesions: None. Biliary: No intrahepatic biliary duct dilation. CBD: 0.4 cm at the hilum. Gallbladder: Normal caliber -Contents: No cholelithiasis -Wall: Normal -Other: No pericholecystic fluid. Right Kidney: No hydronephrosis. Ascites: None. Spleen: The craniocaudal length of the spleen is 11.2 cm, normal. There are no splenic lesions. IMPRESSION IMPRESSION: No acute findings. Mild hepatic steatosis. Relief Cook: [facility] Transcribe Date/Time: Aug 02 2024 10:33A Dictated by : LLOYD GARSIA MD This examination was interpreted and the report reviewed and electronically signed by: LLOYD GARSIA MD on Aug 02 2024 10:36AM EST [facility] Radiology Study observation (narrative) [facility] CNOVon 08-01-2024 CNOV Office Visit (INTMWS ) POLY ARMANDO ([id number]) 1995 F Date Time Provider Department 08/01/24 1:00 PM WILSON WHARTON INTMWS During your visit today, we recorded the following information about you: Temperature Pulse Blood pressure Weight 98.6 degrees 80/minute 122/78 111.4 kg Last Period 07/08/24 Wilson Wharton APRN.BOOM MASTER 08/01/2024 1:21 PM Signed SUBJECTIVE Poly Armando is a 29 year old female here today for acute concerns. Chief Complaint Patient presents with: Abdominal Pain: started yesterday aches with some cramping. 1 episode of diarrhea. HPI Poly Armando is a 29 year old female. She is an established patient. Here today for acute concerns of abdominal pain. She reports abdominal pain with an onset of yesterday. Has cramping and x1 episode of diarrhea. Pain is mostly to the RUQ. Pain is constant but worse at sometimes. Prior CT of abd/pelvis done 10/2023 and had punctuate left renal stone, no other issues. Had an episode of pain in October and this feels very similar. Odor to her stool. Took pepto and did not help. No nausea or vomiting and no urinary symptoms. Her medications were reviewed today and her list is now up to date. Medications Current Outpatient Medications Medication Sig losartan (COZAAR) 25 mg tablet Take 1 tablet by mouth once daily. propranolol ER (INDERAL LA) 80 mg 24 hr capsule Take 1 capsule by mouth once daily. metFORMIN (GLUCOPHAGE) 500 mg tablet Take 1 tablet by mouth two times a day with meals. desvenlafaxine ER (PRISTIQ) 100 mg 24 hr tablet Take 1 tablet by mouth once daily. No current facility-administered medications for this visit. ALLERGIES Allergen Reactions Lisinopril Intolerance ACTIVE PROBLEM LIST Elevated Heart Rate With Elevated Blood Pressure and Diagnosis of Hypertension - 01/20/2022 Racing Heart Beat - 01/18/2022 Robert (Generalized Anxiety Disorder) - 11/18/2021 Hypertension, Essential - 11/18/2021 Comment: Hypertensive emergency or severe asymptomatic hypertension absent. No evidence of target organ damage. Lifestyle: never smoker; no use of EtOH Diet: she cooks at home; lots of pasta; she enjoys vegetables and fruits Exercise: no regimen; maybe 1 walk a day with the dogs Hidradenitis Suppurativa - 11/18/2021 Acne Vulgaris - 11/18/2021 Lymph Node Enlargement - 11/18/2021 Generalized Seizures (Hcc) - 03/03/2021 Tension Headaches - 03/03/2021 Headache, Rebound - 03/03/2021 Shortening, Leg, Congenital, Left - 01/04/2021 Scoliosis Concern - 01/04/2021 Seizure Disorder (Hcc) - 01/04/2021 Migraine Without Aura, Not Intractable, With Status Migrainosus - 01/04/2021 Obesity, Class III, BMI >= 40 - 01/03/2021 Social History Tobacco Use Smoking status: Never Smokeless tobacco: Never Vaping Use Vaping status: Never Used Substance Use Topics Alcohol use: Not Currently Drug use: Never Review of Systems Respiratory: Negative. Cardiovascular: Negative. Gastrointestinal: Positive for abdominal pain and diarrhea. Negative for abdominal distention, anal bleeding, blood in stool, constipation, nausea, rectal pain and vomiting. OBJECTIVE BP 122/78 Pulse 80 Temp (Src) 98.6 (Tympanic) Wt 245 lb 9.5 oz (111.4kg) SpO2 98% [facility] 07/08/2024 Physical Exam Vitals and nursing note reviewed. Constitutional: General: She is awake. She is not in acute distress. Appearance: Normal appearance. She is well-developed and well-groomed. She is not ill-appearing, toxic-appearing or diaphoretic. HENT: Head: Normocephalic. Right Ear: External ear normal. Left Ear: External ear normal. Nose: Nose normal. Eyes: General: Vision grossly intact. Conjunctiva/sclera: Conjunctivae normal. Pupils: Pupils are equal, round, and reactive to light. Neck: Vascular: No JVD. Trachea: Trachea normal. Cardiovascular: Rate and Rhythm: Normal rate and regular rhythm. Pulses: Normal pulses. Heart sounds: Normal heart sounds. No murmur heard. Pulmonary: Effort: Pulmonary effort is normal. No accessory muscle usage, prolonged expiration or respiratory distress. Breath sounds: Normal breath sounds. Abdominal: General: Bowel sounds are normal. Palpations: Abdomen is soft. Tenderness: There is abdominal tenderness in the right upper quadrant. There is no guarding or rebound. Positive signs include Ly's sign. Negative signs include McBurney's sign. Musculoskeletal: Cervical back: Neck supple. Skin: General: Skin is warm and dry. Capillary Refill: Capillary refill takes less than 2 seconds. Neurological: General: No focal deficit present. Mental Status: She is alert and oriented to person, place, and time. Mental status is at baseline. Psychiatric: Attention and Perception: Attention and perception normal. Mood and Affect: Mood and affect normal. Speech: Speech normal. Behavior: Behavi (more content not included)... Normal [facility] CNOVon 07-11-2024 CNOV Office Visit (INTMWS ) POLY ARMANDO ([id number]) 1995 F Date Time Provider Department 07/11/24 9:20 AM WILSON WHARTON During your visit today, we recorded the following information about you: Pulse Respiration Blood pressure Weight 66/minute 16/minute 120/77 110.8 kg Wilson Wharton APRN.CNP 07/11/2024 12:42 PM Signed SUBJECTIVE Poly Armando is a 29 year old female here today for a check up on her medical problems. Chief Complaint Patient presents with: Follow Up HPI Poly Armando is a 29 year old female. She is an established patient. Here today for follow up. Last visit we started phentermine to help with weight loss. 5% weight loss goal of 12.25 pounds, starting weight 245 pounds and weight today is 244 for 1 pound weight loss. She had some issues with side effects with the medication initially but that has resolved. Taking the full dose now of phentermine. Not much improvement in energy levels with this. Still tired all of the time. She has excess fatigue and daytime tiredness/sleepiness. Has also tried modafinil in the past but did not tolerate this. Concerns of continued issues with dizziness, palpations at times, occasional migraines. Prior seizure disorder diagnosis but no activity that she has noticed. Last MRI was in 2020. She is just not feeling great and not sure why, has felt like this for years. Her medications were reviewed today and her list is now up to date. Medications Current Outpatient Medications Medication Sig losartan (COZAAR) 25 mg tablet Take 1 tablet by mouth once daily. propranolol ER (INDERAL LA) 80 mg 24 hr capsule Take 1 capsule by mouth once daily. metFORMIN (GLUCOPHAGE) 500 mg tablet Take 1 tablet by mouth two times a day with meals. desvenlafaxine ER (PRISTIQ) 100 mg 24 hr tablet Take 1 tablet by mouth once daily. iv contrast (will be provided with radiology test) MRI Brain Inject, intravenously, once for 1 dose.No IV access, insert saline lock prior to beginning of sedation, infusion, injection of imaging exam.Discontinue saline lock post exam. If Pt. has a central line or IVAD, may access for administration according to line specific nursing protocol.Once exam is complete flush line and de-access according to line specific nursing protocol in the MR contrast administration guidelines link Phentermine HCl (ADIPEX-P) 37.5 mg tablet Take 1 tablet by mouth once daily for 30 days. No current facility-administered medications for this visit. ALLERGIES Allergen Reactions Lisinopril Intolerance ACTIVE PROBLEM LIST Elevated Heart Rate With Elevated Blood Pressure and Diagnosis of Hypertension - 01/20/2022 Racing Heart Beat - 01/18/2022 Robert (Generalized Anxiety Disorder) - 11/18/2021 Hypertension, Essential - 11/18/2021 Comment: Hypertensive emergency or severe asymptomatic hypertension absent. No evidence of target organ damage. Lifestyle: never smoker; no use of EtOH Diet: she cooks at home; lots of pasta; she enjoys vegetables and fruits Exercise: no regimen; maybe 1 walk a day with the dogs Hidradenitis Suppurativa - 11/18/2021 Acne Vulgaris - 11/18/2021 Lymph Node Enlargement - 11/18/2021 Generalized Seizures (Hcc) - 03/03/2021 Tension Headaches - 03/03/2021 Headache, Rebound - 03/03/2021 Shortening, Leg, Congenital, Left - 01/04/2021 Scoliosis Concern - 01/04/2021 Seizure Disorder (Hcc) - 01/04/2021 Migraine Without Aura, Not Intractable, With Status Migrainosus - 01/04/2021 Obesity, Class III, BMI >= 40 - 01/03/2021 Social History Tobacco Use Smoking status: Never Smokeless tobacco: Never Vaping Use Vaping status: Never Used Substance Use Topics Alcohol use: Not Currently Drug use: Never Review of Systems Constitutional: Positive for fatigue. Respiratory: Negative. Cardiovascular: Negative for chest pain and leg swelling. Neurological: Positive for dizziness and headaches. OBJECTIVE BP 120/77 Pulse 66 Resp 16 Wt 244 lb 4.3 oz (110.8kg) LMP 05/16/2024 Physical Exam Vitals and nursing note reviewed. Constitutional: General: She is awake. She is not in acute distress. Appearance: Normal appearance. She is well-developed and well-groomed. She is not ill-appearing, toxic-appearing or diaphoretic. HENT: Head: Normocephalic. Right Ear: External ear normal. Left Ear: External ear normal. Nose: Nose normal. Eyes: General: Vision grossly intact. Conjunctiva/sclera: Conjunctivae normal. Pupils: Pupils are equal, round, and reactive to light. Neck: Vascular: No JVD. Trachea: Trachea normal. Cardiovascular: Rate and Rhythm: Normal rate and regular rhythm. Pulses: Normal pulses. Heart sounds: Normal heart sounds. No murmur heard. Pulmonary: Effort: Pulmonary effort is normal. No accessory muscle usage, prolonged expiration or respiratory distress. Breath bennett (more content not included)... Normal [facility] CNOVon 05-30-2024 CNOV Office Visit (INTMWS ) POLY ARMANDO ([id number]) 1995 F Date Time Provider Department 05/30/24 11:00 AM WILSON WHARTON INTMWS During your visit today, we recorded the following information about you: Pulse Blood pressure Weight Last Period 70/minute 110/76 111.3 kg 05/16/24 Wilson Wharton APRN.BOOM MASTER 05/30/2024 12:21 PM Signed SUBJECTIVE Poly Armando is a 29 year old female here today for a check up on her medical problems. Chief Complaint Patient presents with: Weight Problem: follow up HPI Poly Armando is a 29 year old female. She is an established patient. Here today for follow up. Has been working on weight loss. Other history of IFG, FREY. On metformin. Previously discussed trial of phentermine. Weight today is 245 pounds. 5% weight loss goal would be 12.25 pounds. Still with a lot of tiredness. For anxiety and depression she is on Pristiq. Last visit we increased this. Mood doing well. Blood pressure well controlled, palpitations well controlled. Her medications were reviewed today and her list is now up to date. Medications Current Outpatient Medications Medication Sig desvenlafaxine ER (PRISTIQ) 100 mg 24 hr tablet Take 1 tablet by mouth once daily. metFORMIN (GLUCOPHAGE) 500 mg tablet Take 1 tablet by mouth two times a day with meals. propranolol ER (INDERAL LA) 80 mg 24 hr capsule Take 1 capsule by mouth once daily. losartan (COZAAR) 25 mg tablet Take 1 tablet by mouth once daily. Phentermine HCl 37.5 mg tablet Take 1 tablet by mouth once daily for 30 days. No current facility-administered medications for this visit. ALLERGIES Allergen Reactions Lisinopril Intolerance ACTIVE PROBLEM LIST Elevated Heart Rate With Elevated Blood Pressure and Diagnosis of Hypertension - 01/20/2022 Racing Heart Beat - 01/18/2022 Robert (Generalized Anxiety Disorder) - 11/18/2021 Hypertension, Essential - 11/18/2021 Comment: Hypertensive emergency or severe asymptomatic hypertension absent. No evidence of target organ damage. Lifestyle: never smoker; no use of EtOH Diet: she cooks at home; lots of pasta; she enjoys vegetables and fruits Exercise: no regimen; maybe 1 walk a day with the dogs Hidradenitis Suppurativa - 11/18/2021 Acne Vulgaris - 11/18/2021 Lymph Node Enlargement - 11/18/2021 Generalized Seizures (Hcc) - 03/03/2021 Tension Headaches - 03/03/2021 Headache, Rebound - 03/03/2021 Shortening, Leg, Congenital, Left - 01/04/2021 Scoliosis Concern - 01/04/2021 Seizure Disorder (Hcc) - 01/04/2021 Migraine Without Aura, Not Intractable, With Status Migrainosus - 01/04/2021 Obesity, Class III, BMI >= 40 - 01/03/2021 Social History Tobacco Use Smoking status: Never Smokeless tobacco: Never Vaping Use Vaping status: Never Used Substance Use Topics Alcohol use: Not Currently Drug use: Never Review of Systems Constitutional: Negative. Respiratory: Negative. Cardiovascular: Negative. OBJECTIVE BP 110/76 Pulse 70 Wt 245 lb 6 oz (111.3kg) SpO2 98% LMP 05/16/2024 Physical Exam Vitals and nursing note reviewed. Constitutional: General: She is awake. She is not in acute distress. Appearance: Normal appearance. She is well-developed and well-groomed. She is not ill-appearing, toxic-appearing or diaphoretic. HENT: Head: Normocephalic. Right Ear: External ear normal. Left Ear: External ear normal. Nose: Nose normal. Eyes: General: Vision grossly intact. Conjunctiva/sclera: Conjunctivae normal. Pupils: Pupils are equal, round, and reactive to light. Neck: Vascular: No JVD. Trachea: Trachea normal. Cardiovascular: Rate and Rhythm: Normal rate and regular rhythm. Pulses: Normal pulses. Heart sounds: Normal heart sounds. No murmur heard. Pulmonary: Effort: Pulmonary effort is normal. No accessory muscle usage, prolonged expiration or respiratory distress. Breath sounds: Normal breath sounds. Musculoskeletal: Cervical back: Neck supple. Skin: General: Skin is warm and dry. Capillary Refill: Capillary refill takes less than 2 seconds. Neurological: General: No focal deficit present. Mental Status: She is alert and oriented to person, place, and time. Mental status is at baseline. Psychiatric: Attention and Perception: Attention and perception normal. Mood and Affect: Mood and affect normal. Speech: Speech normal. Behavior: Behavior normal. Behavior is cooperative. Thought Content: Thought content normal. Cognition and Memory: Cognition and memory normal. Judgment: Judgment normal. ASSESSMENT/PLAN: 1. ROBERT (generalized anxiety disorder) - ICD9: 300.02, ICD10: F41.1 (primary diagnosis) Stable on current medication. 2. Moderate episode of recurrent major depressive disorder (HCC) - ICD9: 296.32, ICD10: F33.1 See #1 3. Hypertension, essential - ICD9: 401.9, ICD10: I10 - Controlled - Continue curren (more content not included)... Normal [facility] UA DIP, URINE (POC)on 2023 BILIRUBIN UA (POCT) Negative Negative [facility] CLARITY UA (POCT) Clear [facility] COLOR UA (POCT) Yellow [facility] GLUCOSE UA (POCT) Negative Negative mg/dL [facility] Hemoglobin Ql (U) Trace-intact Abnormal Negative [facility] KETONE UA (POCT) Negative Negative mg/dL [facility] LEUKOCYTES UA (POCT) Negative Negative [facility] NITRITE UA (POCT) Negative Negative [facility] PH UA (POCT) 6.0 4.5 - 8.0 [facility] Protein Ql (U) Negative Negative mg/dL [facility] SPECIFIC GRAVITY UA (POCT) 1.015 1.005 - 1.030 [facility] UROBILINOGEN UA (POCT) 0.2 E.U./dL Becky l E.U./dL [facility] Urinalysis complete panel (U )on 12-11-2023 Bacteria LM.HPF (Urine sed) [#/Area] Rare Abnormal None Seen /HPF [facility] Bilirubin Ql (U) Negative Negative [facility] Clarity (Unsp spec) Clear Clear [facility] Color (U) Yellow Yellow [facility] Epithelial cells LM.HPF (Urine sed) [#/Area] Few [facility] Glucose Test strip (U) [Mass/Vol] Negative Negative [facility] Hemoglobin Ql (U) Negative Negative [facility] Ketones Ql (U) Negative Negative [facility] Leukocyte esterase Test strip Ql (U) Negative Negative [facility] Nitrite Ql (U) Negative Negative [facility] pH (U) 5.5 [pH] 5.0 - 8.0 [facility] Protein (U) [Mass/Vol] Negative Negative [facility] RBC LM.HPF (Urine sed) [#/Area] 0-3 /HPF 0-3 /HPF [facility] Specific gravity (U) [Rel density] 1.010 1.005 - 1.030 [facility] Urobilinogen Ql (U) 0.2 EU/dL 0.2-1.0 EU/dL [facility] WBC LM.HPF (Urine sed) [#/Area] 0-5 /HPF 0-5 /HPF [facility] CBC panel Auto (Bld)on 11-05 Erythrocyte distribution width (RBC) [Ratio] 11.9 % 11.5 - 15.0 % [facility] Hematocrit (Bld) [Volume fraction] 40.9 % 36.0 - 46.0 % [facility] Hemoglobin (Bld) [Mass/Vol] 13.7 g/dL 11.5 - 15.5 g/dL [facility] MCH (RBC) [Entitic mass] 28.7 pg 26.0 - 34.0 pg [facility] MCHC (RBC) [Mass/Vol] 33.5 g/dL 30.5 - 36.0 g/dL [facility] MCV (RBC) [Entitic vol] 85.6 fL 80.0 - 100.0 fL [facility] Nucleated RBC (Bld) [#/Vol] <0.01 k/uL [facility] Platelet mean volume (Bld) [Entitic vol] 9.1 fL 9.0 - 12.7 fL [facility] Platelets (Bld) [#/Vol] 263 10*3/uL 150 - 400 k/uL [facility] RBC (Bld) [#/Vol] 4.78 10*6/uL 3.90 - 5.2 0 m/uL [facility] WBC (Bld) [#/Vol] 7.45 10*3/uL 3.70 - 11. 00 k/uL [facility] ESTRADIOL-17B Don 11-05-19 24 E2 [Mass/Vol] 71 pg/mL [facility] FSH Don 11-05-2023 Follitropin Qn 4.6 m[IU]/mL See comment mIU/mL [facility] HbA1c (Bld)on 11-05-2023 Average glucose Estimated from glycated hemoglobin (Bld) [Mass/Vol] 123 mg/dL [facility] HbA1c (d) [Mass fraction] 5.9 % High 4.3 - 5.6 % [facility] T4 FREE/FREE THYROXon 2023 Free T4 [Mass/Vol] 1.2 ng/dL 0.9 - 1.7 ng/dL [facility] TSH [facility] 11-05-2023 TSH Qn 3.650 m[IU]/L 0.270 - 4.200 mIU/L [facility] US Kidney - bilateral and Ur inary bladderon 11-05-2023 [facility] BHCG (SERUM)on 03-08-2023 B-HCG (SERUM) Negative Normal NEGATIVE [facility] Comment on above: Result Comment: Serum Test is more Sensitive than a Urine Test. Please Note Threshold Values: SERUM - 10mlU/mL URINE - 20mlU/mL Performed By: #### L 200.4092 #### [facility] - LABORATORY [address] [place] [address] BMPon 03-08-2023 Anion gap [Moles/Vol] 15.8 mmol/L Normal 15- [facility] Comment on above: Performed By: #### L 100.0010 #### [facility] - [facility]ORY [address] [place] [address] Calcium [Mass/Vol] 9.3 mg/dL Normal 8.6-10.0 [facility] Comment on above: Performed By: #### L 100.0010 #### [facility] - LAB[facility]ATORY [address] [place] [address]77 Chloride [Moles/Vol] 101 mmol/L Normal 98-107 [facility] Comment on above: Performed By: #### L 100.0010 #### [facility] - [facility]ATORY [address] [place] [address]58[address] CO2 [Moles/Vol] 26 mmol/L Normal 22-29 [facility] Comment on above: Performed By: #### L 100.0010 #### ML [facility] [address] [place] [address] Creatinine [Mass/Vol] 0.74 mg/dL Normal 0.50-0.90 [facility] Comment on above: Performed By: #### L 100.0010 #### [facility] [address] [place] [address] 50548 eGFR if AFR SELENA > 60 ml/min/1.73m2 Normal [facility] Comment on above: Result Comment: eGFR >= 60 Indicates normal kidney function. * eGFR IS AN ESTIMATE * (AFR SELENA = ) (non-AFR AM = NON-) MDRD calculation used in the eGFR should not be used to dose medications. For further limitations of the eGFR please refer to the Physician Website or the National Kidney Disease Education Program website (www.nkdep.nih.gov). Performed By: #### L 100.0010 #### [facility] - [facility] [address] [place] [address] 73016 eGFR nonAFR Selena > 60 ml/Min/1.73m2 Normal [facility] Comment on above: Performed By: #### L 100.0010 #### [facility] - [facility] [address] [place] [address] 10754 Glucose [Mass/Vol] 113 mg/dL High 74-106 [facility] Comment on above: Performed By: #### L 100.0010 #### [facility] - [facility] [address] [place] [address]39 Potassium [Moles/Vol] 4.8 mmol/L Normal 3.5-5.0 [facility] Comment on above: Performed By: #### L 100.0010 #### [facility] - [facility]ORY [address] [place] [address] 90431 Sodium [Moles/Vol] 138 mmol/L Normal 135-145 [facility] Comment on above: Performed By: #### L 100.0010 #### [facility] - [facility] [address] [place] [address] 65832 Urea nitrogen [Mass/Vol] 10 mg/dL Normal 6-20 [facility] Comment on above: Performed By: #### L 100.0010 #### [facility] - [facility] [address] [place] [address] 88154 Basic metabolic 2000 panelon 03-08-2023 Anion gap [Moles/Vol] 15.8 mmol/L 15 - 2 2 mmol/L [facility] Calcium [Mass/Vol] 9.3 mg/dL 8.6 - 10. 0 mg/dL [facility] Chloride [Moles/Vol] 101 mmol/L 98 - 10 7 mmol/L [facility] CO2 [Moles/Vol] 26 mmol/L 22 - 29 mmol/L [facility] Creatinine [Mass/Vol] 0.74 mg/dL 0.50 - 0.90 mg/dL [facility] eGFR-All Other Races > 60 ml/Min/1.73m2 [facility] GFR/1.73 sq M.predicted among blacks MDRD (S/P/Bld) [Vol rate/Area] mL/min/{1.73_m2} [facility] Glucose [Mass/Vol] 113 mg/dL High 74 - 106 mg/dL [facility] Potassium [Moles/Vol] 4.8 mmol/L 3.5 - 5.0 mmol/L [facility] Sodium [Moles/Vol] 138 mmol/L 135 - 145 mmol/L [facility] Urea nitrogen [Mass/Vol] 10 mg/dL 6 - 20 mg/dL [facility] CBCon 03-08-2023 BASO# 0.00 x10(3) Normal 0.00-0.10 [facility] Comment on above: Performed By: #### L 200.0010 #### [facility] - LAB[facility]ATORY [address] [place] [address]2430 Basophils/100 WBC (Bld) 0.6 % Normal 0.0-1.0 [facility] Comment on above: Performed By: #### L 200.0010 #### [facility] - [facility]ATORY [address] [place] [address] 62629 EOS# 0.10 x10(3) Normal 0.00-0.54 [facility] Comment on above: Performed By: #### L 200.0010 #### ML [facility] [address] [place] [address] 10564 Eosinophils/100 WBC (Bld) 1.3 % Normal 0.5-4.9 [facility] Comment on above: Performed By: #### L 200.0010 #### ML [facility] [address] [place] [address] 20246 Erythrocyte distribution width (RBC) [Ratio] 13.3 % Normal 12.5-15.7 [facility] Comment on above: Performed By: #### L 200.0010 #### ML [facility] [address] [place] [address] 48846 Hematocrit (Bld) [Volume fraction] 41.6 % Normal 36.0-48.0 [facility] Comment on above: Performed By: #### L 200.0010 #### [facility] - [facility]ATORY [address] [place] [address] 28959 Hemoglobin (Bld) [Mass/Vol] 13.9 g/dL Normal 12.0-16.0 [facility] Comment on above: Performed By: #### L 200.0010 #### ML [facility] [address] [place] [address] 81102 LYMPH# 2.80 x10(3) Normal 1.00-3.50 [facility] Comment on above: Performed By: #### L 200.0010 #### [facility] - LAB[facility]ATORY [address] [place] [address] 13404 Lymphocytes/100 WBC (Bld) 36.7 % Normal 16.0-48.0 [facility] Comment on above: Performed By: #### L 200.0010 #### [facility] [address] [place] [address] 19133 MCH (RBC) [Entitic mass] 28.4 pg Low 28.5-32.9 [facility] Comment on above: Performed By: #### L 200.0010 #### ML [facility] [address] [place] [address] 13559 MCHC (RBC) [Mass/Vol] 33.6 g/dL Normal 33.0-36.0 [facility] Comment on above: Performed By: #### L 200.0010 #### ML [facility] [address] [place] [address] 19785 MCV (RBC) [Entitic vol] 84.8 fL Normal 80.0-99.0 [facility] Comment on above: Performed By: #### L 200.0010 #### [facility] [address] [place] [address] 65603 MONO# 0.50 x10(3) Normal 0.30-0.80 [facility] Comment on above: Performed By: #### L 200.0010 #### ML [facility] [address] [place] [address] 88311 Monocytes/100 WBC (Bld) 7.1 % Normal 4.3-11.2 [facility] Comment on above: Performed By: #### L 200.0010 #### ML [facility] [address] [place] [address] 91331 NEUT# 4.10 x10(3) Normal 1.40-6.50 [facility] Comment on above: Performed By: #### L 200.0010 #### [facility] [address] [place] [address] 40790 Neutrophils/100 WBC (Bld) 54.3 % Normal 45.0-73.0 [facility] Comment on above: Performed By: #### L 200.0010 #### ML [facility] [address] [place] [address] 49533 Platelet mean volume (Bld) [Entitic vol] 7.3 fL Low 7.5-9.5 [facility] Comment on above: Performed By: #### L 200.0010 #### [facility] - LAB[facility]ATORY [address] [place] [address] 02206 PLT 252 X10(3) Normal 150-450 [facility] Comment on above: Performed By: #### L 200.0010 #### [facility] - LAB[facility]ATORY [address] [place] [address] 64928 RBC 4.90 x10(6) Normal 3.30-5.00 [facility] Comment on above: Performed By: #### L 200.0010 #### [facility] - LABORATORY [address] [place] [address] 83818 WBC 7.5 x10(3) Normal 4.5-10.0 [facility] Comment on above: Performed By: #### L 200.0010 #### [facility] - [facility]ATORY [address] [place] [address] 66273 CBC W Auto Differential pane l (Bld)on 03-08-2023 BASO ABS 0.00 x10(3) 0.00 - 0.10 x10(3) [facility] Basophils/100 WBC (Bld) 0.6 % 0.0 - 1.0 % [facility] EOS ABS 0.10 x10(3) 0.00 - 0.54 x10(3) [facility] Eosinophils/100 WBC (Bld) 1.3 % 0.5 - 4.9 % [facility] Erythrocyte distribution width (RBC) [Ratio] 13.3 % 12.5 - 15.7 % [facility] Hematocrit (Bld) [Volume fraction] 41.6 % 36.0 - 48.0 % [facility] Hemoglobin (Bld) [Mass/Vol] 13.9 g/dL 12.0 - 16.0 g/dL [facility] LYMPH ABS 2.80 x10(3) 1.00 - 3.50 x10(3) [facility] Lymphocytes/100 WBC (Bld) 36.7 % 16.0 - 48.0 % [facility] MCH (RBC) [Entitic mass] 28.4 pg Low 28.5 - 32.9 pg [facility] MCHC (RBC) [Mass/Vol] 33.6 g/dL 33.0 - 36.0 g/dL [facility] MCV (RBC) [Entitic vol] 84.8 fL 80.0 - 99.0 fl [facility] MONO ABS 0.50 x10(3) 0.30 - 0.80 x10(3) [facility] Monocytes/100 WBC (Bld) 7.1 % 4.3 - 11.2 % [facility] Neutrophil Ab 4.10 x10(3) 1.40 - 6.50 x10(3) [facility] Neutrophils/100 WBC (Bld) 54.3 % 45.0 - 73.0 % [facility] Platelet Count 252 X10(3) 150 - 450 X10(3) [facility] Platelet mean volume (Bld) [Entitic vol] 7.3 fL Low 7.5 - 9.5 fl [facility] RBC 4.90 x10(6) 3.30 - 5.00 x10(6) [facility] WBC 7.5 x10(3) 4.5 - 10.0 x10(3) [facility] CT BRAIN WITHOUT CONTRAST- C TBon 03-08-2023 CT BRAIN WITHOUT CONTRAST- CTB [place] [address] Name: POLY ARMANDO Phys: ERIK BAINS M.D. : [birth year] Age: 27 Sex: F Acct: [id number] Loc: ED Exam Date: 03/08/23 Status: REG ER Radiology No.: Unit Number: [id number] Exam # Type/Exam [id number] CT / CT BRAIN WITHOUT CONTRAST- CTB EXAMINATION: CT OF THE HEAD WITHOUT CONTRAST03/08/2023 3:[address] HEAD/BRAIN WITHOUT CONTRAST EXAM DESCRIPTION: TECHNIQUE: CT of the head was performed without the administration of intravenous contrast. Automated exposure control, iterative reconstruction, and/or weight based adjustment of the mA/kV was utilized to reduce the radiation dose to as low as reasonably achievable. COMPARISON: MR brain, June 16, 2021. HISTORY: ORDERING SYSTEM PROVIDED HISTORY: TECHNOLOGIST PROVIDED HISTORY: Reason for Exam: Focal neuro deficit,new,fixed,wor se FINDINGS: The size, density, and morphology of the brain and CSF containing spaces appears normal. There is no evidence of mass, midline shift, hemorrhage, or infract. The ventricles, cortical sulci, and subarachnoid cisterns appear unremarkable. There are no extra-axial fluid collections. No regions of pathologic attenuation are evident. Regions of the orbits and paranasal sinuses included within the field of view are unremarkable. There is no displaced fracture or osseous neoplasm. The extracalvarial soft tissues appear unremarkable. IMPRESSION: No acute intracranial pathology. COMMENT: Changes resultant from ischemia (even significant ischemia) may often be inapparent on CT exam, particularly if imaged early. Additionally, early changes due to neoplastic or inflammatory processes can be subtle to the extent that they are not prospectively noted. Therefore, if symptoms persist, or clinical suspicion for pathology remains, further evaluation may be obtained with MRI. Electronically signed By Nikolas Michael MD 03/08/2023 5:29:54 PM EST Workstation ID : [id number] < > Reported By: NIKOLAS MICHAEL M.D. Signed In Fluency By: NIKOLAS MICHAEL M.D. << Signature on File>> Reported By: NIKOLAS MICHAEL M.D. Signed By: NIKOLAS MICHAEL M.D. Tests performed at: [address] [address] Normal [facility] CT BRAIN WO IVCONon 03-08-20 [facility] EMERGENCY DEPARTMENT REPORTo n 03-08-2023 [place]ER[place] [address] HEALTH INFORMATION MANAGEMENT EMERGENCY DEPARTMENT REPORT Patient: POLY ARMANDO JOEL A M.D. [id number] [age] F Status: DEP ER ED Date of Service: 03/08/23 ADDENDUM: The patient's laboratory studies came back unremarkable. Her orthostatics were normal, but she complained of continuing to be dizzy. She did feel somewhat better after the IV fluids and Antivert but still complained of vertigo which now she says is constant. I do not see any nystagmus. She now says that it is not any worse when she moves her head. Not sure what to think about that. At this point, we are going to go ahead and get a CT of the brain to just make sure that there is no abnormality in the posterior fossa or bleed, and if this is negative I think the patient is very low risk to go home as far as this being stroke-type symptoms at her age. Her blood pressures have all been in the low to normal range other than when they stood her up it went up to 140. Rest of the dictation to follow up following the CAT scan. Report#: Dict ID [id number] / Int ID [id number] 03/15/23 2350 ERIK BAINS M.D. cc: WILSON WHARTON; ERIK BAINS M.D. << Signature on File>> Reported By: ERIK BAINS M.D. Signed By: ERIK BAINS M.D. Tests performed at: [place] [address] Normal [facility] EMERGENCY [place] [address] HEALTH INFORMATION MANAGEMENT EMERGENCY DEPARTMENT REPORT Patient: POLY ARMANDO ERIK BAINS M.D. [id number] [age] F Status: [facility] ER ED Date of Service: 03/08/23 ADDENDUM: The CAT scan was negative. The patient is going to go home on Antivert and Zofran as needed. She can return if worse or problems, is written off work. Report#: Dict ID [id number] / Int ID [id number] 03/15/23 2350 ERIK BAINS M.D. cc: WILSON WHARTON; ERIK BAINS M.D. << Signature on File>> Reported By: ERIK BAINS M.D. Signed By: ERIK BAINS M.D. Tests performed at: [place] [address] Normal [facility] [place]ENCY [place] [address] HEALTH INFORMATION MANAGEMENT EMERGENCY DEPARTMENT REPORT Patient: POLY ARMANDO ERIK BAINS M.D. [id number] [age] F Status: [facility] ER ED Date of Service: 03/08/23 CHIEF COMPLAINT: Room spinning, nausea, vomiting. HISTORY OF PRESENT ILLNESS: The patient is a 27-year-old female. She states that she started yesterday afternoon with sudden onset of vertigo and room spinning. Apparently was at work when this started. She went home from work. Said it got better over a couple of hours. She got nauseated with it and actually vomited. She got better over a couple of hours. She was sleeping through the tonight and at some point during the night, developed some what she described as fairly severe lower abdominal pain that then went away after a period of time. She said she felt fine the next morning, got up to go to work and about 10 o'clock this morning, the vertigo hit her again. The room was spinning. She was nauseated again. She presents now for further evaluation. She has not had any focal numbness, weakness, confusion, hallucinations, problem with hot or cold intolerance, or lymph node swelling. No other complaints. She has not any focal visual acuity problems. Not had anything like this in the past. No new medicines other than some allergy medicines about 3 weeks ago and no other complaints. REVIEW OF SYSTEMS: Otherwise, negative. PAST MEDICAL HISTORY: Significant for kidney stones, , tonsillectomy, adenoidectomy, and tubal ligation. MEDICATIONS: Listed. ALLERGIES: Listed. FAMILY HISTORY: Noncontributory. SOCIAL HISTORY: . Does not use alcohol, drugs, tobacco. PHYSICAL EXAMINATION: GENERAL: A well-nourished, well-developed female, who is awake, alert, currently not in acute distress. VITAL SIGNS: As charted. HEENT: Atraumatic, normocephalic. Oral mucosa is moist. NECK: Supple. No adenopathy or thyromegaly. No JVD. No stridor. CARDIOVASCULAR: Regular rate and rhythm. No murmurs, rubs, or gallops. LUNGS: Clear to auscultation bilaterally. ABDOMEN: Soft, nontender, nondistended. Bowel sounds positive. EXTREMITIES: No clubbing, cyanosis. No pitting edema. NEUROLOGIC: She is neurologically awake, alert and oriented to person, place, and date. Moving all 4 extremities equally. Normal reflexes. Normal [id number], ytig-ni-kcnf. EMERGENCY DEPARTMENT COURSE AND MEDICAL DECISION MAKING: At this point, the patient is 27 years old, very low risk for any CVA. She does have a history of hypertension, but at this point, sounds like more like positional vertigo given that her symptoms have come and gone. She definitely says they are exacerbated by head movement. At this point, we are going to get some laboratory studies and urine just based on the recent abdominal pain complaint, although she has no pain right now, just to make sure she is not and does not have a tubal or urinary tract infection and I am going to give her IV fluid, some Phenergan for nausea, some Antivert and we will re- evaluate her with the rest of the dictation to follow. Report#: Dict ID [id number] / Int ID [id number] 03/15/23 2350 ERIK BAINS M.D. cc: WILSON WHARTON; ERIK BAINS M.D. << Signature on File>> Reported By: ERIK BAINS M.D. Signed By: ERIK BAINS M.D. Tests performed at: [address] [address] Normal [facility] GLUCOSE FSon 03-08-2023 Glucose [Mass/Vol] 105 mg/dL Normal 70-110 [facility] Comment on above: Performed By: #### L 100.0070 #### [facility] [address] [place] [address] Glucose post fast [Mass/Vol] on 03-08-2023 Glucose [Mass/Vol] 105 mg/dL 70 - 110 mg/dL [facility] HCG.beta subunit Qnon 2022 Beta hCG, Serum Negative NEGATIVE [facility] UA W/C&Son 03-08-2023 Bilirubin Ql (U) Negative Normal NEGATIVE [facility] Comment on above: Order Comment: Urine Specimen Source+ CLEAN CATCH Performed By: #### L 200.3001 #### [facility] - LAB[facility]AT[facility] [address] [place] [address] Color (U) YELLOW Normal YELLOW [facility] Comment on above: Order Comment: Urine Specimen Source+ CLEAN CATCH Performed By: #### L 200.3001 #### ML - [facility]ATORY [address] [place] [address] Glucose Ql (U) Negative Normal NEGATIVE [facility] Comment on above: Order Comment: Urine Specimen Source+ CLEAN CATCH Performed By: #### L 200.3001 #### ML - [facility] [address] [place] [address] Hemoglobin Ql (U) Negative Normal NEGATIVE [facility] Comment on above: Order Comment: Urine Specimen Source+ CLEAN CATCH Performed By: #### L 200.3001 #### ML - [facility] [address] [place] [address] Leukocyte esterase Test strip Ql (U) Negative Normal NEGATIVE [facility] Comment on above: Order Comment: Urine Specimen Source+ CLEAN CATCH Performed By: #### L 200.3001 #### ML [facility] [address] [place] [address] Nitrite Ql (U) Negative Normal NEGATIVE [facility] Comment on above: Order Comment: Urine Specimen Source+ CLEAN CATCH Performed By: #### L 200.3001 #### ML [facility] [address] [place] [address] pH (U) 7.0 [pH] Normal 5.0-8.0 [facility] Comment on above: Order Comment: Urine Specimen Source+ CLEAN CATCH Performed By: #### L 200.3001 #### ML [facility] [address] [place] [address] Protein Ql (U) Negative Normal NEGATIVE [facility] Comment on above: Order Comment: Urine Specimen Source+ CLEAN CATCH Performed By: #### L 200.3001 #### ML - [facility] [address] [place] [address] URINE APPEARANC CLEAR Normal CLEAR [facility] Comment on above: Order Comment: Urine Specimen Source+ CLEAN CATCH Performed By: #### L 200.3001 #### ML - [facility] [address] [place] [address] URINE KETONE Negative Normal NEGATIVE [facility] Comment on above: Order Comment: Urine Specimen Source+ CLEAN CATCH Performed By: #### L 200.3001 #### ML - [facility] [address] [place] [address] URINE SPECIFIC 1.020 Normal 1.001-1.035 [facility] Comment on above: Order Comment: Urine Specimen Source+ CLEAN CATCH Performed By: #### L 200.3001 #### ML - [facility] [address] [place] [address] URINE UROBILINO 0.2 EU/DL Normal 0.2-1.0 [facility] Comment on above: Order Comment: Urine Specimen Source+ CLEAN CATCH Performed By: #### L 200.3001 #### ML - [facility]ATORY [address] [place] [address] Urinalysis complete panel (U )on 03-08-2023 Appearance (U) CLEAR CLEAR [facility] Bilirubin, Urine Negative NEGATIVE [facility] Blood, Urine Negative NEGATIVE [facility] Color (U) YELLOW YELLOW [facility] Glucose Ql (U) Negative NEGATIVE MG/DL [facility] Ketones Ql (U) Negative NEGATIVE MG/DL [facility] Leukocytes Negative NEGATIVE [facility] Nitrites Urine Negative NEGATIVE [facility] pH (U) 7.0 [pH] 5.0 - 8.0 [facility] Protein.monoclonal (U) [Mass/Vol] Negative NEGATIVE MG/DL [facility] Specific [place], Ur 1.020 1.001 - 1.035 [facility] Urobilinogen, Urine 0.2 EU/DL 0.2 - 1. 0 EU/DL [facility] CBC W Auto Differential pane l (Bld)on 10-17-2022 Basophils (Bld) [#/Vol] 0.05 10*3/uL <0.11 k/uL [facility] Basophils/100 WBC (Bld) 0.7 % C [facility] Differential cell count method Nom (Bld) Auto [facility] Eosinophils (Bld) [#/Vol] 0.11 10*3/uL <0.46 k/uL [facility] Eosinophils/100 WBC (Bld) 1.5 % [facility] Erythrocyte distribution width (RBC) [Ratio] 12.2 % 11.5 - 15.0 % [facility] Hematocrit (Bld) [Volume fraction] 41.5 % 36.0 - 46.0 % [facility] Hemoglobin (Bld) [Mass/Vol] 13.6 g/dL 11.5 - 15.5 g/dL [facility] Immature granulocytes (Bld) [#/Vol] <0.10 k/uL [facility] Immature granulocytes/100 WBC (Bld) 0.1 % [facility] Lymphocytes (Bld) [#/Vol] 3.08 10*3/uL 1.00 - 4.00 k/uL [facility] Lymphocytes/100 WBC (Bld) 43.0 % [facility] MCH (RBC) [Entitic mass] 28.0 pg 26.0 - 34.0 pg [facility] MCHC (RBC) [Mass/Vol] 32.8 g/dL 30.5 - 36.0 g/dL [facility] MCV (RBC) [Entitic vol] 85.4 fL 80.0 - 100.0 fL [facility] Monocytes (Bld) [#/Vol] 0.58 10*3/uL <0.87 k/uL [facility] Monocytes/100 WBC (Bld) 8.1 % [facility] Neutrophils (Bld) [#/Vol] 3.34 10*3/uL 1.45 - 7.50 k/uL [facility] Neutrophils/100 WBC (Bld) 46.6 % [facility] Nucleated RBC (Bld) [#/Vol] <0.01 k/uL [facility] Nucleated RBC/100 WBC (Bld) [Ratio] 0.0 /100 WBC [facility] Platelet mean volume (Bld) [Entitic vol] 9.4 fL 9.0 - 12.7 fL [facility] Platelets (Bld) [#/Vol] 277 10*3/uL 150 - 400 k/uL [facility] RBC (Bld) [#/Vol] 4.86 10*6/uL 3.90 - 5.2 0 m/uL [facility] WBC (Bld) [#/Vol] 7.17 10*3/uL 3.70 - 11. 00 k/uL [facility] ECHO COMPLETEon 05-16-20[place] [address] HEALTH INFORMATION MANAGEMENT CARDIOLOGY REPORT Patient: POLY ARMANDO WAYNE D D.O. [id number] [age] F Status: REG CLI CARD Exam # Type/Exam [id number] CARD / ECHO COMPLETE DATE OF SERVICE: 05/16/2022 PROCEDURE: Echocardiogram. REFERRING PHYSICIAN: Rekha Winslow D.O. CLINICAL INFORMATION: Indication: Palpitations. AUTO AIR CONDITIONING MECHANIC: Tyra. HEIGHT: 63. WEIGHT: 240. BLOOD PRESSURE: Not listed. 2D/M-MODE MEASUREMENTS: IVS (Ed): 0.8 cm (Normal 0.6-1.2 cm) LVP Wall (Ed): 1.0 cm (Normal 0.6-1.2 cm) LVID (Ed): 4.8 cm (Normal 3.8-5.0 cm) LVID (Es): 3.3 cm (Normal 2.2-3.4 cm) LA Diameter: 3.7 cm (Normal 1.5-4.0 cm) Root Diameter: 3.0 cm (Normal 2.0-3.5 cm) ESTIMATED EJECTION FRACTION: 65% TECHNICAL DESCRIPTION: The patient was imaged in the standard M-mode and 2-D views. Continuous wave and pulsed Doppler interrogation were performed. Color flow was performed. FINDINGS: 1. Left ventricular wall thickness is normal. Ejection fraction 65%. There are no segmental wall motion abnormalities noted. 2. Left atrial size is normal. 3. Right atrium and right ventricle are normal. 4. Pulmonic valve is normal. 5. Tricuspid valve is normal. 6. Aortic valve has 3 leaflets, opens freely. Valve area is 2.3. Dimensionless index 0.7. Peak gradient is 8. 7. Mitral valve, normal size and consistency. Valve area is 4.6. Mild degree of mitral annular calcification. 8. Trace degree of tricuspid regurgitation. PA pressure 10. 9. TAPSE is 3.6, suggesting normal RV function. 10. Mitral valve area is 4.6. Deceleration time 114 milliseconds. 11. Normal relaxation pattern. 12. E/E-prime average is 7. 13. No extracardiac masses. 14. No intracardiac masses. 15. Atrial septum seems to be floppy, redundant, not clearly seen, no flow noted across it. 16. Inferior vena cava collapses more than 50%. CONCLUSION: Echocardiogram demonstrates normal wall thickness. Normal wall motion. Ejection fraction 65%. Valvular function is normal. Diastolic function is normal. Report#: Dict ID [id number] / Int ID [id number] 05/25/22 0511 ROLF MXI D.O. cc: WILSON WHARTON; REKHA WINSLOW D.O. << Signature on File>> Reported By: ROLF MIX D.O. Signed By: ROLF MIX D.O. Tests performed at: [place] [address] Normal [facility] TSHon 01-20-2022 TSH 2.44 uIU/mL Normal 0.270-4.200 [facility] Comment on above: Performed By: #### L 304.0140 #### [facility] [address] [place] [address] Comprehensive metabolic 2000 panelon 01-04-2022 Albumin [Mass/Vol] 4.4 g/dL 3.5 - 5.2 g/dL [facility] Albumin/Globulin [Mass ratio] 1.57 {ratio} 1.1 - 2.5 [facility] ALP [Catalytic activity/Vol] 81 U/L 35 - 105 U/L [facility] ALT [Catalytic activity/Vol] 31 U/L 5 - 33 U/L [facility] Anion gap [Moles/Vol] 15.8 mmol/L 15 - 2 2 mmol/L [facility] AST [Catalytic activity/Vol] 28 U/L 5 - 32 U/L [facility] Bilirubin [Mass/Vol] 0.2 mg/dL 0.2 - 1 .2 mg/dL [facility] Calcium [Mass/Vol] 9.5 mg/dL 8.6 - 10. 0 mg/dL [facility] Chloride [Moles/Vol] 100 mmol/L 98 - 10 7 mmol/L [facility] CO2 [Moles/Vol] 25 mmol/L 22 - 29 mmol/L [facility] Creatinine [Mass/Vol] 0.80 mg/dL 0.50 - 0.90 mg/dL [facility] eGFR-All Other Races > 60 ml/Min/1.73m2 [facility] GFR/1.73 sq M.predicted among blacks MDRD (S/P/Bld) [Vol rate/Area] mL/min/{1.73_m2} [facility] Globulin (S) [Mass/Vol] 2.8 g/dL 1.5 - 4.5 g/dL [facility] Glucose [Mass/Vol] 100 mg/dL 74 - 106 mg/dL [facility] Potassium [Moles/Vol] 3.8 mmol/L 3.5 - 5.0 mmol/L [facility] Protein [Mass/Vol] 7.2 g/dL 6.4 - 8.3 g/dL [facility] Sodium [Moles/Vol] 137 mmol/L 135 - 145 mmol/L [facility] Urea nitrogen [Mass/Vol] 11 mg/dL 6 - 20 mg/dL [facility] LIPID PANEL BASICon 01-05-20 22 Cholesterol [Mass/Vol] 160 mg/dL 130 - 200 mg/dL [facility] Cholesterol in HDL [Mass/Vol] 48 mg/dL [facility] Cholesterol in LDL [Mass/Vol] 86 mg/dL [facility] LDL:HDL Ratio 1.8 [facility] Triglyceride [Mass/Vol] 131 mg/dL [facility] VLDL Cholesterol 26 mg/dL 6 - 40 mg/dL [facility] HPV,CtNg Age Gdon 10-20-2021 . . [facility] Comment on above: Order Comment: Speci men Comment: [id number] Specimen Comment: No. of containers..01 ThinPrep Vial Performed By: #### L 801.8800 #### [place] [address] . [facility] Comment on above: Order Comment: Speci men Comment: [id number] Specimen Comment: No. of containers..01 ThinPrep Vial Result Comment: The HPV DNA reflex criteria were not met with this specimen result therefore, no HPV testing was performed. Performed at: =G - [facility] [address] [id number] Twister Operator: Mariela Perry MD, Phone: [phone] Performed at: - [facility] [place], [place] [id number] Twister Operator: Mariela Perry MD, Phone: [phone] Performed By: #### L 801.8800 #### [place] [address] Age Gdln ACOG 25-29 Normal [facility] Comment on above: Order Comment: Speci men Comment: [id number] Specimen Comment: No. of containers..01 ThinPrep Vial Performed By: #### L 801.8800 #### [place] [address] Diagnosis: [facility] Comment on above: Order Comment: Speci men Comment: [id number] Specimen Comment: No. of containers..01 ThinPrep Vial Result Comment: UNSA TISFACTORY FOR EVALUATION. Performed By: #### L 801.8800 #### [place] [address] Note: [facility] Comment on above: Order Comment: Speci [facility] Comment: [id number] Specimen Comment: No. of containers..01 ThinPrep Vial Result Comment: The Pap smear is a screening test designed to aid in the detection of premalignant and malignant conditions of the uterine cervix. It is not a diagnostic procedure and should not be used as the sole means of detecting cervical cancer. Both false-positive and false-negative reports do occur. Performed By: #### L 801.8800 #### [place] [address] Performed by: [facility] Comment on above: Order Comment: Speci men Comment: [id number] Specimen Comment: No. of containers..01 ThinPrep Vial Result Comment: Disha Lozano Wire Drawing Setter (ASCP) Performed By: #### L 801.8800 #### [place] [address] QC reviewed by: [facility] Comment on above: Order Comment: Speci men Comment: [id number] Specimen Comment: No. of containers..01 ThinPrep Vial Result Comment: Tierra Hawkins, Supervisory Wire Drawing Setter (ASCP) Performed By: #### L 801.8800 #### [place] [address] Recommendation: [facility] Comment on above: Order Comment: Speci men Comment: [id number] Specimen Comment: No. of containers..01 ThinPrep Vial Result Comment: Sugg est follow up as clinically appropriate. Performed By: #### L 801.8800 #### [place] [address] Spec adequacy: [facility] Comment on above: Order Comment: Speci men Comment: [id number] Specimen Comment: No. of containers..01 ThinPrep Vial Result Comment: Spec imen processed and examined but unsatisfactory for evaluation of epithelial abnormality because of insufficient cellularity. Performed By: #### L 801.8800 #### [place] [address] Test Methodlogy [facility] Comment on above: Order Comment: Speci men Comment: [id number] Specimen Comment: No. of containers..01 ThinPrep Vial Result Comment: This liquid based ThinPrep(R) pap test was screened with the use of an image guided system. Performed By: #### L 801.8800 #### [place] [address] SURGICAL PATHOLOGY, CONVERTE Robert 05-17-2013 [facility] Vital Signs Date Time Vital Sign Value Performing Clinician Mecca lyn 06-05-2025 08:10-0400 Body height 160 cm Vilma Rouse APRN.BOOM MASTER Work Phone: [facility] 06-05-2025 08:10-0400 Body mass index (BMI) [Ratio] 43.4 kg/m2 Vilma Rouse APRN.CNP Work Phone: [facility] 06-05-2025 08:10-0400 Body weight 111.13 kg Vilma Rouse APRN.CNP Work Phone: [facility] 04-24-2025 07:48-0400 Body height [address] Work Phone: [facility] 04-24-2025 07:48-0400 Body mass index (BMI) [Ratio] 43.75 kg/m2 Kaya Mcdaniels RD Work Phone: [facility] 04-24-2025 07:48-0400 Body weight 112.[address] Work Phone: [facility] 04-16-2025 15:24-0400 Body height 160 cm Ebony Barrios MD Work Phone: [facility] 04-16-2025 15:24-0400 Body mass index (BMI) [Ratio] 43.82 kg/m2 Ebony Barrios MD Work Phone: [facility] 04-16-2025 15:24-0400 Body weight 112.22 kg Ebony Barrios MD Work Phone: [facility] 04-16-2025 15:24-0400 Diastolic blood pressure 62 mm[Hg] Ebony Barrios MD Work Phone: [facility] 04-16-2025 15:24-0400 Heart rate 96 /min Ebony Barrios MD Work Phone: [facility] 04-16-2025 15:24-0400 Systolic blood pressure 120 mm[Hg] Ebony Barrios MD Work Phone: [facility] 03-20-2025 13:12-0400 Body mass index (BMI) [Ratio] 43.84 kg/m2 Petr Harder SECTIONAL BELT MOLD ASSEMBLER.BOOM MASTER Work Phone: [facility] 03-20-2025 13:12-0400 Body temperature 99 [degF] Petr Harder SECTIONAL BELT MOLD ASSEMBLER.BOOM MASTER Work Phone: [facility] 03-20-2025 13:12-0400 Body weight 112.25 kg Petr Harder SECTIONAL BELT MOLD ASSEMBLER.BOOM MASTER Work Phone: [facility] 03-20-2025 13:12-0400 Diastolic blood pressure 76 mm[Hg] Petr Harder SECTIONAL BELT MOLD ASSEMBLER.BOOM MASTER Work Phone: [facility] 03-20-2025 13:12-0400 Heart rate 89 /min Petr Harder SECTIONAL BELT MOLD ASSEMBLER.BOOM MASTER Work Phone: [facility] 03-20-2025 13:12-0400 Respiratory rate 18 /min Petr Harder SECTIONAL BELT MOLD ASSEMBLER.BOOM MASTER Work Phone: [facility] 03-20-2025 13:12-0400 SaO2% (BldA) [Mass fraction] 98 % Petr Harder SECTIONAL BELT MOLD ASSEMBLER.BOOM MASTER Work Phone: [facility] 03-20-2025 13:12-0400 Systolic blood pressure 129 mm[Hg] Petr Harder SECTIONAL BELT MOLD ASSEMBLER.BOOM MASTER Work Phone: [facility] 03-05-2025 09:14-0400 Body height 160 cm Vilma Nasim SECTIONAL BELT MOLD ASSEMBLER.BOOM MASTER Work Phone: [facility] 03-05-2025 09:14-0400 Body mass index (BMI) [Ratio] 43.05 kg/m2 Vilma Nasim SECTIONAL BELT MOLD ASSEMBLER.BOOM MASTER Work Phone: [facility] 03-05-2025 09:14-0400 Body weight 110.22 kg Vilma Nasim SECTIONAL BELT MOLD ASSEMBLER.BOOM MASTER Work Phone: [facility] 03-05-2025 09:14-0400 Diastolic blood pressure 76 mm[Hg] Vilma Nasim SECTIONAL BELT MOLD ASSEMBLER.BOOM MASTER Work Phone: [facility] 03-05-2025 09:14-0400 Heart rate 67 /min Vilma Nasim SECTIONAL BELT MOLD ASSEMBLER.BOOM MASTER Work Phone: [facility] 03-05-2025 09:14-0400 SaO2% (BldA) [Mass fraction] 99 % Vilma Nasim SECTIONAL BELT MOLD ASSEMBLER.BOOM MASTER Work Phone: [facility] 03-05-2025 09:14-0400 Systolic blood pressure 120 mm[Hg] Vilma Nasim SECTIONAL BELT MOLD ASSEMBLER.BOOM MASTER Work Phone: [facility] 03-05-2025 09:10-0400 Body height [address] Work Phone: [facility] 03-05-2025 09:10-0400 Body mass index (BMI) [Ratio] 43.05 kg/m2 Allison Leopold RD Work Phone: [facility] 03-05-2025 09:10-0400 Body weight 110.[address] Work Phone: [facility] 02-27-2025 08:56-0400 Body mass index (BMI) [Ratio] 43.04 kg/m2 Wilson Dio SECTIONAL BELT MOLD ASSEMBLER.BOOM MASTER Work Phone: [facility] 02-27-2025 08:56-0400 Body weight 110.2 kg Wilson Dio SECTIONAL BELT MOLD ASSEMBLER.BOOM MASTER Work Phone: [facility] 02-27-2025 08:56-0400 Diastolic blood pressure 72 mm[Hg] Wilson Dio SECTIONAL BELT MOLD ASSEMBLER.BOOM MASTER Work Phone: [facility] 02-27-2025 08:56-0400 Heart rate 81 /min Wilson Dio SECTIONAL BELT MOLD ASSEMBLER.BOOM MASTER Work Phone: [facility] 02-27-2025 08:56-0400 SaO2% (BldA) [Mass fraction] 99 % Wilson Dio SECTIONAL BELT MOLD ASSEMBLER.BOOM MASTER Work Phone: [facility] 02-27-2025 08:56-0400 Systolic blood pressure 102 mm[Hg] Wilson Dio SECTIONAL BELT MOLD ASSEMBLER.BOOM MASTER Work Phone: [facility] 01-29-2025 08:59-0400 Body height [address] Work Phone: [facility] 01-29-2025 08:59-0400 Body mass index (BMI) [Ratio] 43.93 kg/m2 Allison Leopold RD Work Phone: [facility] 01-29-2025 08:59-0400 Body weight 112.[address] Work Phone: [facility] 01-22-2025 08:22-0400 Diastolic blood pressure 79 mm[Hg] Ira May SECTIONAL BELT MOLD ASSEMBLER.BOOM MASTER Work Phone: [facility] 01-22-2025 08:22-0400 Systolic blood pressure 117 mm[Hg] Ira May SECTIONAL BELT MOLD ASSEMBLER.BOOM MASTER Work Phone: [facility] 01-22-2025 08:10-0400 Body height 160 cm Ira May SECTIONAL BELT MOLD ASSEMBLER.BOOM MASTER Work Phone: [facility] 01-22-2025 08:10-0400 Body mass index (BMI) [Ratio] 43.91 kg/m2 Ira May SECTIONAL BELT MOLD ASSEMBLER.BOOM MASTER Work Phone: [facility] 01-22-2025 08:10-0400 Body weight 112.4 kg Ira May SECTIONAL BELT MOLD ASSEMBLER.BOOM MASTER Work Phone: [facility] 01-22-2025 08:10-0400 Heart rate 83 /min Ira May SECTIONAL BELT MOLD ASSEMBLER.BOOM MASTER Work Phone: [facility] 01-22-2025 08:10-0400 SaO2% (BldA) [Mass fraction] 98 % Ira May SECTIONAL BELT MOLD ASSEMBLER.BOOM MASTER Work Phone: [facility] 01-08-2025 09:09-0400 Body height 160 cm Vilma Rouse SECTIONAL BELT MOLD ASSEMBLER.BOOM MASTER Work Phone: [facility] 01-08-2025 09:09-0400 Body mass index (BMI) [Ratio] 43.75 kg/m2 Vilma Rouse SECTIONAL BELT MOLD ASSEMBLER.BOOM MASTER Work Phone: [facility] 01-08-2025 09:09-0400 Body weight 112.04 kg Vilma Rouse SECTIONAL BELT MOLD ASSEMBLER.BOOM MASTER Work Phone: [facility] 01-08-2025 09:09-0400 Diastolic blood pressure 68 mm[Hg] Vilma Rouse SECTIONAL BELT MOLD ASSEMBLER.BOOM MASTER Work Phone: [facility] 01-08-2025 09:09-0400 Heart rate 64 /min Vilma Rouse SECTIONAL BELT MOLD ASSEMBLER.BOOM MASTER Work Phone: [facility] 01-08-2025 09:09-0400 SaO2% (BldA) [Mass fraction] 96 % Vilma Rouse SECTIONAL BELT MOLD ASSEMBLER.BOOM MASTER Work Phone: [facility] 01-08-2025 09:09-0400 Systolic blood pressure 118 mm[Hg] Vilma Rouse SECTIONAL BELT MOLD ASSEMBLER.BOOM MASTER Work Phone: [facility] 12-22-2024 12:52-0400 Body mass index (BMI) [Ratio] 44.64 kg/m2 Kaya Mcdaniels RD Work Phone: [facility] 12-22-2024 12:52-0400 Body weight 114.[address] Work Phone: [facility] 12-17-2024 13:03-0400 Body height 160 cm Ebony Barrios MD Work Phone: [facility] 12-17-2024 13:03-0400 Body mass index (BMI) [Ratio] 44.64 kg/m2 Ebony Barrios MD Work Phone: [facility] 12-17-2024 13:03-0400 Body weight 114.31 kg Ebony Barrios MD Work Phone: [facility] 12-17-2024 13:03-0400 Diastolic blood pressure 70 mm[Hg] Ebony Barrios MD Work Phone: [facility] 12-17-2024 13:03-0400 Heart rate 81 /min Ebony Barrios MD Work Phone: [facility] 12-17-2024 13:03-0400 Systolic blood pressure 118 mm[Hg] Ebony Barrios MD Work Phone: [facility] 11-28-2024 09:00-0500 Diastolic blood pressure 84 mm[Hg] Wilson Dio SECTIONAL BELT MOLD ASSEMBLER.BOOM MASTER Work Phone: [facility] 11-28-2024 09:00-0500 Systolic blood pressure 118 mm[Hg] Wilson Dio SECTIONAL BELT MOLD ASSEMBLER.BOOM MASTER Work Phone: [facility] 11-28-2024 08:58-0500 Body mass index (BMI) [Ratio] 44.05 kg/m2 Wilson Dio SECTIONAL BELT MOLD ASSEMBLER.BOOM MASTER Work Phone: [facility] 11-28-2024 08:58-0500 Body weight 112.8 kg Wilson Dio SECTIONAL BELT MOLD ASSEMBLER.BOOM MASTER Work Phone: [facility] 11-28-2024 08:58-0500 Heart rate 72 /min Wilson Dio SECTIONAL BELT MOLD ASSEMBLER.BOOM MASTER Work Phone: [facility] 11-28-2024 08:58-0500 SaO2% (BldA) [Mass fraction] 98 % Wilson Dio SECTIONAL BELT MOLD ASSEMBLER.BOOM MASTER Work Phone: [facility] 10-28-2024 11:10-0500 Diastolic blood pressure 64 mm[Hg] Tyra Claros MD Work Phone: [facility] 10-28-2024 11:10-0500 Heart rate 59 /min Tyra Claros MD Work Phone: [facility] 10-28-2024 11:10-0500 Respiratory rate 16 /min Tyra Claros MD Work Phone: [facility] 10-28-2024 11:10-0500 SaO2% (BldA) [Mass fraction] 100 % Tyra Claros MD Work Phone: [facility] 10-28-2024 11:10-0500 Systolic blood pressure 114 mm[Hg] Tyra Claros MD Work Phone: [facility] 10-28-2024 09:37-0500 Body mass index (BMI) [Ratio] 43.9 kg/m2 Tyra Claros MD Work Phone: [facility] 10-28-2024 09:37-0500 Body temperature 98.1 [degF] Tyra Claros MD Work Phone: [facility] 10-28-2024 09:37-0500 Body weight 112.4 kg Tyra Claros MD Work Phone: [facility] 10-14-2024 08:46-0500 Body height 160 cm Tricia Garcia PA-C Work Phone: [facility] 10-14-2024 08:46-0500 Body mass index (BMI) [Ratio] 43.91 kg/m2 Tricia DIA-Alexey Work Phone: [facility] 10-14-2024 08:46-0500 Body weight 112.45 kg Tricia Garcia PA-C Work Phone: [facility] 10-14-2024 08:46-0500 Diastolic blood pressure 84 mm[Hg] Tricia Ryanon PA-C Work Phone: [facility] 10-14-2024 08:46-0500 Heart rate 67 /min Tricia Ryanon PA-C Work Phone: [facility] 10-14-2024 08:46-0500 Systolic blood pressure 126 mm[Hg] Tricia Ryanon PA-C Work Phone: [facility] 08-01-2024 12:48-0500 Body mass index (BMI) [Ratio] 43.5 kg/m2 Wilson Dio SECTIONAL BELT MOLD ASSEMBLER.BOOM MASTER Work Phone: [facility] 08-01-2024 12:48-0500 Body temperature 98.6 [degF] Wilson Dio SECTIONAL BELT MOLD ASSEMBLER.BOOM MASTER Work Phone: [facility] 08-01-2024 12:48-0500 Body weight 111.4 kg Wilson Dio SECTIONAL BELT MOLD ASSEMBLER.BOOM MASTER Work Phone: [facility] 08-01-2024 12:48-0500 Diastolic blood pressure 78 mm[Hg] Wilson Dio SECTIONAL BELT MOLD ASSEMBLER.BOOM MASTER Work Phone: [facility] 08-01-2024 12:48-0500 Heart rate 80 /min Wilson Dio SECTIONAL BELT MOLD ASSEMBLER.BOOM MASTER Work Phone: [facility] 08-01-2024 12:48-0500 SaO2% (BldA) [Mass fraction] 98 % Wilson Dio SECTIONAL BELT MOLD ASSEMBLER.BOOM MASTER Work Phone: [facility] 08-01-2024 12:48-0500 Systolic blood pressure 122 mm[Hg] Wilson Dio SECTIONAL BELT MOLD ASSEMBLER.BOOM MASTER Work Phone: [facility] 07-11-2024 09:10-0400 Body mass index (BMI) [Ratio] 43.27 kg/m2 Wilsno Dio SECTIONAL BELT MOLD ASSEMBLER.BOOM MASTER Work Phone: [facility] 07-11-2024 09:10-0400 Body weight 110.8 kg Wilson Dio SECTIONAL BELT MOLD ASSEMBLER.BOOM MASTER Work Phone: [facility] 07-11-2024 09:10-0400 Diastolic blood pressure 77 mm[Hg] Wilson Dio SECTIONAL BELT MOLD ASSEMBLER.BOOM MASTER Work Phone: [facility] 07-11-2024 09:10-0400 Heart rate 66 /min Wilson Dio SECTIONAL BELT MOLD ASSEMBLER.BOOM MASTER Work Phone: [facility] 07-11-2024 09:10-0400 Respiratory rate 16 /min Wilson Dio SECTIONAL BELT MOLD ASSEMBLER.BOOM MASTER Work Phone: [facility] 07-11-2024 09:10-0400 Systolic blood pressure 120 mm[Hg] Wilson Dio SECTIONAL BELT MOLD ASSEMBLER.BOOM MASTER Work Phone: [facility] 05-30-2024 11:04-0400 Body mass index (BMI) [Ratio] 43.47 kg/m2 Wilson Dio SECTIONAL BELT MOLD ASSEMBLER.BOOM MASTER Work Phone: [facility] 05-30-2024 11:04-0400 Body weight 111.3 kg Wilson Dio SECTIONAL BELT MOLD ASSEMBLER.BOOM MASTER Work Phone: [facility] 05-30-2024 11:04-0400 Diastolic blood pressure 76 mm[Hg] Wilson Dio SECTIONAL BELT MOLD ASSEMBLER.BOOM MASTER Work Phone: [facility] 05-30-2024 11:04-0400 Heart rate 70 /min Wilson Dio SECTIONAL BELT MOLD ASSEMBLER.BOOM MASTER Work Phone: [facility] 05-30-2024 11:04-0400 SaO2% (BldA) [Mass fraction] 98 % Wilson Dio SECTIONAL BELT MOLD ASSEMBLER.BOOM MASTER Work Phone: [facility] 05-30-2024 11:04-0400 Systolic blood pressure 110 mm[Hg] Wilson Dio SECTIONAL BELT MOLD ASSEMBLER.BOOM MASTER Work Phone: [facility] 03-14-2024 09:52-0400 Body height 160 cm Wilson Dio SECTIONAL BELT MOLD ASSEMBLER.BOOM MASTER Work Phone: [facility] 03-14-2024 09:52-0400 Body mass index (BMI) [Ratio] 43.58 kg/m2 Wilson Dio SECTIONAL BELT MOLD ASSEMBLER.BOOM MASTER Work Phone: [facility] 03-14-2024 09:52-0400 Body weight 111.58 kg Wilson Dio SECTIONAL BELT MOLD ASSEMBLER.BOOM MASTER Work Phone: [facility] 03-14-2024 09:52-0400 Diastolic blood pressure 74 mm[Hg] Wilson Dio SECTIONAL BELT MOLD ASSEMBLER.BOOM MASTER Work Phone: [facility] 03-14-2024 09:52-0400 Heart rate 77 /min Wilson Dio SECTIONAL BELT MOLD ASSEMBLER.BOOM MASTER Work Phone: [facility] 03-14-2024 09:52-0400 Respiratory rate 16 /min Wilson Dio SECTIONAL BELT MOLD ASSEMBLER.BOOM MASTER Work Phone: [facility] 03-14-2024 09:52-0400 SaO2% (BldA) [Mass fraction] 98 % Wilson Dio SECTIONAL BELT MOLD ASSEMBLER.BOOM MASTER Work Phone: [facility] 03-14-2024 09:52-0400 Systolic blood pressure 120 mm[Hg] Wilson Dio SECTIONAL BELT MOLD ASSEMBLER.BOOM MASTER Work Phone: [facility] 02-04-2024 08:47-0400 Body height 160 cm Wilson Dio SECTIONAL BELT MOLD ASSEMBLER.BOOM MASTER Work Phone: [facility] 02-04-2024 08:47-0400 Body mass index (BMI) [Ratio] 43.4 kg/m2 Wilson Dio SECTIONAL BELT MOLD ASSEMBLER.BOOM MASTER Work Phone: [facility] 02-04-2024 08:47-0400 Body weight 111.13 kg Wilson Dio SECTIONAL BELT MOLD ASSEMBLER.BOOM MASTER Work Phone: [facility] 02-04-2024 08:47-0400 Diastolic blood pressure 70 mm[Hg] Wilson Dio SECTIONAL BELT MOLD ASSEMBLER.BOOM MASTER Work Phone: [facility] 02-04-2024 08:47-0400 Heart rate 68 /min Wilson Dio SECTIONAL BELT MOLD ASSEMBLER.BOOM MASTER Work Phone: [facility] 02-04-2024 08:47-0400 SaO2% (BldA) [Mass fraction] 98 % Wilson Dio SECTIONAL BELT MOLD ASSEMBLER.BOOM MASTER Work Phone: [facility] 02-04-2024 08:47-0400 Systolic blood pressure 104 mm[Hg] Wilsno Dio SECTIONAL BELT MOLD ASSEMBLER.BOOM MASTER Work Phone: [facility] 12-11-2023 13:36-0400 Body weight 113.4 kg Rosita Learyiner Mbanugo DO Work Phone: [facility] 12-11-2023 13:36-0400 Diastolic blood pressure 81 mm[Hg] Rosita Learyiner Mbanugo DO Work Phone: [facility] 12-11-2023 13:36-0400 Heart rate 86 /min Rosita Learyiner Mbanugo DO Work Phone: [facility] 12-11-2023 13:36-0400 SaO2% (BldA) [Mass fraction] 99 % Rosita Learyiner Mbanugo DO Work Phone: [facility] 12-11-2023 13:36-0400 Systolic blood pressure 125 mm[Hg] Rosita Learyiner Mbanugo DO Work Phone: [facility] 11-05-2023 13:06-0500 Body weight 113.4 kg Milind Haury SECTIONAL BELT MOLD ASSEMBLER.BOOM MASTER Work Phone: [facility] 11-05-2023 13:06-0500 Diastolic blood pressure 82 mm[Hg] Milind Haury SECTIONAL BELT MOLD ASSEMBLER.BOOM MASTER Work Phone: [facility] 11-05-2023 13:06-0500 Systolic blood pressure 126 mm[Hg] Milind Haury SECTIONAL BELT MOLD ASSEMBLER.BOOM MASTER Work Phone: [facility] 01-22-2023 10:28-0400 Body weight 113.85 kg Wilson Dio SECTIONAL BELT MOLD ASSEMBLER.BOOM MASTER Work Phone: [facility] 01-22-2023 10:28-0400 Diastolic blood pressure 84 mm[Hg] Wilson Dio SECTIONAL BELT MOLD ASSEMBLER.BOOM MASTER Work Phone: [facility] 01-22-2023 10:28-0400 Heart rate 90 /min Wilson Dio SECTIONAL BELT MOLD ASSEMBLER.BOOM MASTER Work Phone: [facility] 01-22-2023 10:28-0400 SaO2% (BldA) [Mass fraction] 99 % Wilson Dio SECTIONAL BELT MOLD ASSEMBLER.BOOM MASTER Work Phone: [facility] 01-22-2023 10:28-0400 Systolic blood pressure 110 mm[Hg] Wilson Dio SECTIONAL BELT MOLD ASSEMBLER.BOOM MASTER Work Phone: [facility] 10-17-2022 11:17-0500 Body weight 112.49 kg Wilson Dio SECTIONAL BELT MOLD ASSEMBLER.BOOM MASTER Work Phone: [facility] 10-17-2022 11:17-0500 Diastolic blood pressure 86 mm[Hg] Wilson Dio SECTIONAL BELT MOLD ASSEMBLER.BOOM MASTER Work Phone: [facility] 10-17-2022 11:17-0500 Heart rate 81 /min Wilson Dio SECTIONAL BELT MOLD ASSEMBLER.BOOM MASTER Work Phone: [facility] 10-17-2022 11:17-0500 SaO2% (BldA) [Mass fraction] 96 % Wilson Dio SECTIONAL BELT MOLD ASSEMBLER.BOOM MASTER Work Phone: [facility] 10-17-2022 11:17-0500 Systolic blood pressure 120 mm[Hg] Wilson Dio SECTIONAL BELT MOLD ASSEMBLER.BOOM MASTER Work Phone: [facility] 07-07-2022 08:08-0400 Body height 157.5 cm Wilson Dio SECTIONAL BELT MOLD ASSEMBLER.BOOM MASTER Work Phone: [facility] 07-07-2022 08:08-0400 Body weight 111.58 kg Wilson Dio SECTIONAL BELT MOLD ASSEMBLER.BOOM MASTER Work Phone: [facility] 07-07-2022 08:08-0400 Diastolic blood pressure 89 mm[Hg] Wilson Dio SECTIONAL BELT MOLD ASSEMBLER.BOOM MASTER Work Phone: [facility] 07-07-2022 08:08-0400 Heart rate 94 /min Wilson Dio SECTIONAL BELT MOLD ASSEMBLER.BOOM MASTER Work Phone: [facility] 07-07-2022 08:08-0400 SaO2% (BldA) [Mass fraction] 99 % Wilson Dio SECTIONAL BELT MOLD ASSEMBLER.BOOM MASTER Work Phone: [facility] 07-07-2022 08:08-0400 Systolic blood pressure 148 mm[Hg] Wilson Wharton SECTIONAL BELT MOLD ASSEMBLER.BOOM MASTER Work Phone: [facility] 02-13-2022 11:16-0400 Body height 157.5 cm Jair Guilherme SECTIONAL BELT MOLD ASSEMBLER.BOOM MASTER Work Phone: [facility] 02-13-2022 11:16-0400 Body temperature 98.2 [degF] Jair Guilherme SECTIONAL BELT MOLD ASSEMBLER.BOOM MASTER Work Phone: [facility] 02-13-2022 11:16-0400 Body weight 110.13 kg Jair Guilherme SECTIONAL BELT MOLD ASSEMBLER.BOOM MASTER Work Phone: [facility] 02-13-2022 11:16-0400 Diastolic blood pressure 82 mm[Hg] Jair Guilherme SECTIONAL BELT MOLD ASSEMBLER.BOOM MASTER Work Phone: [facility] 02-13-2022 11:16-0400 Heart rate 98 /min Jair Guilherme SECTIONAL BELT MOLD ASSEMBLER.BOOM MASTER Work Phone: [facility] 02-13-2022 11:16-0400 Respiratory rate 16 /min Jair Guilherme SECTIONAL BELT MOLD ASSEMBLER.BOOM MASTER Work Phone: [facility] 02-13-2022 11:16-0400 SaO2% (BldA) [Mass fraction] 98 % Jair Guilherme SECTIONAL BELT MOLD ASSEMBLER.BOOM MASTER Work Phone: [facility] 02-13-2022 11:16-0400 Systolic blood pressure 142 mm[Hg] Jair Guilherme SECTIONAL BELT MOLD ASSEMBLER.BOOM MASTER Work Phone: [facility] 01-20-2022 08:08-0400 Body height 157.5 cm Rekha Kirby DO Work Phone: [facility] 01-20-2022 08:08-0400 Body weight 110.22 kg Rekha Kirby DO Work Phone: [facility] 01-20-2022 08:08-0400 Diastolic blood pressure 84 mm[Hg] Rekha Kirby DO Work Phone: [facility] 01-20-2022 08:08-0400 Heart rate 96 /min Rekha Kirby DO Work Phone: [facility] 01-20-2022 08:08-0400 Respiratory rate 18 /min Rekha Kirby DO Work Phone: [facility] 01-20-2022 08:08-0400 SaO2% (BldA) [Mass fraction] 100 % Rekha Kirby DO Work Phone: [facility] 01-20-2022 08:08-0400 Systolic blood pressure 133 mm[Hg] Rekha Kirby DO Work Phone: [facility] 01-18-2022 17:05-0400 Diastolic blood pressure 87 mm[Hg] Rekha Kirby DO Work Phone: [facility] 01-18-2022 17:05-0400 Systolic blood pressure 123 mm[Hg] Rekha Kirby DO Work Phone: [facility] 01-18-2022 16:38-0400 Heart rate 99 /min Rekha Kirby DO Work Phone: [facility] 01-18-2022 16:38-0400 Respiratory rate 20 /min Rekha Kirby DO Work Phone: [facility] 01-18-2022 16:38-0400 SaO2% (BldA) [Mass fraction] 100 % Rekha Kirby DO Work Phone: [facility] 01-12-2022 11:01-0400 Body height 157.5 cm Patria Armando PA-C Work Phone: [facility] 01-12-2022 11:01-0400 Body weight 112.95 kg Patria Armando PA-C Work Phone: [facility] 01-12-2022 11:01-0400 Diastolic blood pressure 90 mm[Hg] Patria Armando PA-C Work Phone: [facility] 01-12-2022 11:01-0400 Heart rate 102 /min Patria Armando PA-C Work Phone: [facility] 01-12-2022 11:01-0400 Respiratory rate 18 /min Patria Armando PA-C Work Phone: [facility] 01-12-2022 11:01-0400 SaO2% (BldA) [Mass fraction] 98 % Patria Armando PA-C Work Phone: [facility] 01-12-2022 11:01-0400 Systolic blood pressure 143 mm[Hg] Patria Armando PA-C Work Phone: [facility] Encounters Encounter Date Encounter Type Care Provider Facility Start: 08-03-2025 End: 08-03-2025 ambulatory CODIE GREENE Facility:[facility] Start: 08-01-2025 ambulatory CODIE GREENE Faci lity:[id number] Start: 07-01-2025 End: 07-01-2025 ambulatory EBONY BARRIOS Facility:[facility] Start: 06-23-2025 End: 06-24-2025 Evaluation and management of inpatient EBONYSAGAR BARRIOS [facility] Start: 06-16-2025 End: 06-16-2025 ambulatory VILMA ROUSE Facility:[facility] Start: 06-15-2025 Encounter for other preprocedural examination VILMA ROUSE [facility] Start: 06-05-2025 End: 06-05-2025 Patient encounter procedure Vilma Rouse APRN.BOOM MASTER Work Phone: [facility] Comment on above: Class 3 severe obesi ty with serious comorbidity and body mass index (BMI) of 40.0 to 44.9 in adult, unspecified obesity type (HCC) (Primary Dx) Start: 06-05-2025 End: 06-05-2025 Telemedicine consultation with patient Vilma Rouse APRN.CNP Work Phone: [facility] Start: 06-05-2025 End: 06-05-2025 ambulatory VILMA ROUSE Facility[facility] Start: 05-27-2025 End: 05-27-2025 Patient encounter procedure Vilma Rouse APRN.CNP Work Phone: [facility] Comment on above: Class 3 severe obesi ty with serious comorbidity and body mass index (BMI) of 40.0 to 44.9 in adult, unspecified obesity type (HCC) (Primary Dx) Start: 05-27-2025 End: 05-27-2025 Telemedicine consultation with patient Vilma Rouse APRN.BOOM MASTER Work Phone: [facility] Start: 05-27-2025 End: 05-27-2025 ambulatory VILMA ROUSE [facility] Start: 04-24-2025 End: 04-24-2025 Patient encounter procedure Kaya Mcdaniels RD Work Phone: [facility] Comment on above: Dietary counseling a nd surveillance (Primary Dx); Class 3 severe obesity with serious comorbidity and body mass index (BMI) of 40.0 to 44.9 in adult, unspecified obesity type (HCC) Start: 04-24-2025 End: 04-24-2025 Telemedicine consultation with patient Kaya Angulomargarette BALLESTEROS Work Phone: [facility] Start: 04-24-2025 End: 04-24-2025 ambulatory KAYA MCDANIELS Facility[facility] Start: 04-17-2025 End: 04-17-2025 Orders Only Ebony Barrios MD Work Phone: [facility] Comment on above: Class 3 severe obesi ty with serious comorbidity and body mass index (BMI) of 40.0 to 44.9 in adult, unspecified obesity type (HCC) (Primary Dx); NAFLD (nonalcoholic fatty liver disease); Hiatal hernia; Pre-diabetes; Hypertension, unspecified type; Gastroesophageal reflux disease without esophagitis; Anxiety and depression Start: 04-16-2025 End: 04-16-2025 Patient encounter procedure Ebony Barrios MD Work Phone: [facility] Comment on above: Class 3 severe obesi ty with serious comorbidity and body mass index (BMI) of 40.0 to 44.9 in adult, unspecified obesity type (HCC) (Primary Dx); NAFLD (nonalcoholic fatty liver disease); Hiatal hernia; Pre-diabetes; Hypertension, unspecified type; Gastroesophageal reflux disease without esophagitis; Anxiety and depression Start: 04-16-2025 End: 04-16-2025 ambulatory EBONY BARRIOS Facility[facility] Start: 04-16-2025 End: 04-16-2025 Telephone encounter Ebony Barrios MD Work Phone: [facility] Comment on above: Medical Clearance Start: 04-16-2025 End: 04-16-2025 ambulatory CODIE Anjum MUNSON[place]IA Facility:[id number] Start: 04-14-2025 End: 04-14-2025 Telephone encounter Ebony Barrios MD Work Phone: [facility] Comment on above: Patient Update (Cons enting at Month 5 will need VV w/RD April 24) Start: 04-02-2025 End: 04-02-2025 Telephone encounter Carmela Mae MD Work Phone: [facility] Comment on above: Appointment (Called to schedule new patient appointment, lvm) Start: 03-26-2025 End: 03-26-2025 Patient encounter procedure Christina Brambila SECTIONAL BELT MOLD ASSEMBLER.BOOM MASTER Work Phone: [facility] Comment on above: Generalized anxiety disorder (Primary Dx); Major depressive disorder, recurrent episode, moderate (HCC) Start: 03-26-2025 End: 03-26-2025 ambulatory CHRISTINA BRAMBILA Facility[facility] Start: 03-23-2025 End: 03-23-2025 Follow-up encounter Rekha Alfonso SECTIONAL BELT MOLD ASSEMBLER.BOOM MASTER Work Phone: [facility] Start: 03-20-2025 End: 03-20-2025 Patient encounter procedure Petr Mandujano SECTIONAL BELT MOLD ASSEMBLER.BOOM MASTER Work Phone: [facility] Comment on above: Hives (Primary Dx); Tick bite, unspecified site, initial encounter Start: 03-20-2025 End: 03-20-2025 ambulatory SELF Facility:[id number] Start: 03-19-2025 End: 03-19-2025 [facility] Shelli Haque PSYD Work Phone: [facility] [facility] Comment on above: Eating disorder, uns pecified type (Primary Dx); Anxiety; MDD (major depressive disorder), recurrent episode, mild Start: 03-05-2025 End: 03-05-2025 Patient encounter procedure Allison Leopold RD Work Phone: [facility] BAR[facility]RIC DE[facility]MENT Comment on above: Established Patient Class 3 severe obesi ty with serious comorbidity and body mass index (BMI) of 40.0 to 44.9 in adult, unspecified obesity type (HCC) (Primary Dx); Vitamin D deficiency Start: 03-05-2025 End: 03-05-[address] Work Phone: [facility] BARI[facility]IC DEPART[facility] Start: 03-04-2025 End: 03-04-2025 Refill Wilson Wharton APRN.BOOM MASTER Work Phone: [facility] [place] Comment on above: Refill Request Start: 02-27-2025 End: 02-27-2025 Patient encounter procedure Wilson Wharton SECTIONAL BELT MOLD ASSEMBLER.BOOM MASTER Work Phone: [facility] [place] Comment on above: Excessive daytime sl eepiness (Primary Dx); Sleep-disordered breathing; Obesity, Class III, BMI >= 40; IFG (impaired fasting glucose); Moderate episode of recurrent major depressive disorder (HCC) Start: 02-27-2025 End: 02-27-2025 ambulatory WILSON DIO Facility:[facility] Start: 02-13-2025 End: 02-13-2025 ambulatory WILSON DIO Facility:[facility] Start: 01-29-2025 End: 01-29-2025 Follow-up encounter Allison Leopold RD Work Phone: [facility] BARI[facility]RIC DEPARTMENT Comment on above: Follow Up (Weight ch eladio ) Start: 01-29-2025 End: 01-29-[address] Work Phone: [facility] BARI[facility]RIC DE[facility]MENT Start: 01-23-2025 End: 01-23-2025 Telephone encounter Shelli Shabnam MERINO Work Phone: [facility] BARIATRIC DEPARTMENT Start: 01-22-2025 End: 01-22-2025 Telephone encounter Ira May APRN.CNP Work Phone: [facility] Pulmonary/Sleep/Critical Care Comment on above: Form Stripper - O ther (Modafinil PA) Start: 01-22-2025 End: 01-22-2025 Patient encounter procedure Ira May APRN.CNP Work Phone: [facility] Pulmonary/Sleep/Critical Care Comment on above: Excessive daytime sl eepiness (Primary Dx); Sleep-disordered breathing; Obesity, Class III, BMI >= 40; Pre-op evaluation Start: 01-22-2025 End: 01-22-2025 Preprocedural examination done Ira May APRN.CNP Work Phone: [facility] Start: 01-22-2025 End: 01-22-2025 ambulatory IRA MAY Facility:[id number] Start: 01-21-2025 End: 01-21-2025 [facility] Shelli Shabnam MERINO Work Phone: [facility] B[facility] Comment on above: Eating disorder, uns pecified type (Primary Dx); Anxiety; MDD (major depressive disorder), recurrent episode, mild Welcome Start: 01-15-2025 End: 01-15-2025 ambulatory [facility] Facility:[id number] Start: 01-15-2025 Encounter for preprocedural cardiovascular examination [facility] Start: 01-09-2025 End: 01-09-2025 ambulatory VILMA ROUSE Facility:[id number] Start: 01-08-2025 End: 01-08-2025 Follow-up encounter Vilma Rouse APRN.CNP Work Phone: [facility] BARIATRIC DEPARTMENT Start: 01-08-2025 End: 01-08-2025 ambulatory VILMA ROUSE Facility:[id number] Start: 01-08-2025 End: 01-08-2025 Patient encounter procedure Vilma Rouse APRN.CNP Work Phone: [facility] BARI[facility]RIC DEPARTMENT Comment on above: Class 3 severe obesi ty with serious comorbidity and body mass index (BMI) of 40.0 to 44.9 in adult, unspecified obesity type (HCC) (Primary Dx); NAFLD (nonalcoholic fatty liver disease); Gastroesophageal reflux disease, unspecified whether esophagitis present Start: 01-08-2025 End: 01-08-2025 ambulatory VILMA ROUSE Facility:[facility] Start: 12-22-2024 End: 12-22-2024 Patient encounter procedure Kaya Mcdaniels RD Work Phone: [facility] BARI[facility]RIC DEPARTMENT Comment on above: Class 3 severe obesi ty with serious comorbidity and body mass index (BMI) of 40.0 to 44.9 in adult, unspecified obesity type (HCC) (Primary Dx) Start: 12-22-2024 End: 12-22-2024 Telemedicine consultation with patient Kaya Becmargarette BALLESTEROS Work Phone: [facility] BAR[facility]RIC DEPARTMENT Start: 12-22-2024 End: 12-22-2024 ambulatory KAYA MCDANIELS Facility:[facility] Start: 12-19-2024 End: 12-19-2024 ambulatory EBONY BARRIOS Facility:[id number] Start: 12-17-2024 End: 12-17-2024 Telephone encounter Ebony Barrios MD Work Phone: [facility] BARIATRIC DEPARTMENT Comment on above: Bariatric Informatio n Packet Start: 12-17-2024 End: 12-17-2024 Patient encounter procedure Ebony Barrios MD Work Phone: [facility] BARIATRIC DEPARTMENT Comment on above: Class 3 severe obesi ty with serious comorbidity and body mass index (BMI) of 40.0 to 44.9 in adult, unspecified obesity type (HCC) (Primary Dx); NAFLD (nonalcoholic fatty liver disease); Pre-diabetes; Seizure (HCC); Hypertension, unspecified type; Tachycardia Start: 12-17-2024 End: 12-17-2024 ambulatory EBONY BARRIOS Facility:[facility] Start: 12-10-2024 End: 12-10-2024 Patient encounter procedure [facility] Provider [facility] Department Start: 12-09-2024 End: 12-09-2024 Telephone encounter Codie Greene APRN.CNP Work Phone: [facility] BARIATRIC DEPARTMENT Comment on above: Patient Update (Artem atric Benefits Investigation) Start: 11-28-2024 End: 11-28-2024 ambulatory WILSON DIO Facility:[facility] Start: 11-28-2024 End: 11-28-2024 Patient encounter procedure Wilson Dio SECTIONAL BELT MOLD ASSEMBLER.BOOM MASTER Work Phone: Internal Medicine [place] Comment on above: Hypertension, essent ial (Primary Dx); ROBERT (generalized anxiety disorder); Chronic gastritis without bleeding, unspecified gastritis type; Nonalcoholic fatty liver disease without nonalcoholic steatohepatitis (FREY); Obesity, Class III, BMI >= 40; IFG (impaired fasting glucose) Start: 10-28-2024 End: 10-28-2024 ambulatory TYRA CLAROS Facility:[facility] Start: 10-28-2024 End: 10-28-2024 Subsequent hospital visit by physician Tyra Claros MD Work Phone: Ambulatory Surgery Comment on above: Right upper quadrant abdominal pain [R10.11] Start: 10-16-2024 End: 10-16-2024 ambulatory TRICIA GARCIA Facility:[id number] Start: 10-14-2024 End: 10-14-2024 ambulatory WILSON DIO Facility:[facility] Start: 10-14-2024 End: 10-14-2024 Patient encounter procedure Tricia Garcia PA-C Work Phone: [facility] [place] Comment on above: Nonalcoholic fatty l iver disease without nonalcoholic steatohepatitis (FREY) (Primary Dx); Right upper quadrant abdominal pain; Indigestion; Bloating; Intermittent diarrhea Start: 09-07-2024 End: 09-09-2024 Refill Wilson Doshir SECTIONAL BELT MOLD ASSEMBLER.BOOM MASTER Work Phone: Internal Medicine [place] Comment on above: Refill Request Start: 08-29-2024 ambulatory WILSON DIO Facility:1 [id number] Start: 08-29-2024 End: 08-29-2024 Subsequent hospital visit by physician [facility] Work Phone: [facility] Cardiology Comment on above: Arrived Start: 08-15-2024 End: 08-15-2024 E-mail encounter from caregiver Wilson Wharton AUBREE Work Phone: [facility] [place] Start: 08-15-2024 End: 08-15-2024 Follow-up encounter Wilson Dio REYNOLDS.BOOM MASTER Work Phone: [facility] [place] Comment on above: Follow up Start: 08-14-2024 End: 08-14-2024 ambulatory WILSON WHARTON Facility:[facility] Start: 08-14-2024 End: 08-14-2024 Subsequent hospital visit by physician [facility] Work Phone: Nuclear Medicine Comment on above: Right upper quadrant abdominal pain [R10.11] Start: 08-11-2024 ambulatory WILSON WHARTON Facility:1 [id number] Start: 08-11-2024 End: 08-11-2024 Subsequent hospital visit by physician [facility] (Lg Bore/1.5t) [facility] MRI Comment on above: Dizzy [R42] Start: 08-04-2024 End: 08-04-2024 Telephone encounter Wilson Wharton BOOM MASTER Work Phone: [facility] [place] Comment on above: Results Start: 08-02-2024 ambulatory WILSON WHARTON Facility:1 [id number] Start: 08-02-2024 End: 08-02-2024 Subsequent hospital visit by physician [facility] [address] [facility] [facility] Comment on above: Right upper quadrant abdominal pain [R10.11] Start: 08-01-2024 End: 08-01-2024 ambulatory Wilson Wharton APRN.BOOM MASTER Work Phone: [facility] [place] Comment on above: Abdominal Pain Start: 08-01-2024 End: 08-01-2024 Patient encounter procedure Wilson Wharton APRN.BOOM MASTER Work Phone: [facility] [place] Comment on above: Right upper quadrant abdominal pain (Primary Dx) Start: 07-31-2024 End: 08-01-2024 ambulatory Wilson Dio SECTIONAL BELT MOLD ASSEMBLER.BOOM MASTER Work Phone: [facility] [place] Comment on above: Stomach Start: 07-11-2024 End: 07-11-2024 ambulatory WILSON DIO Facility:[facility] Start: 07-11-2024 End: 07-11-2024 Patient encounter procedure Wilson Dio SECTIONAL BELT MOLD ASSEMBLER.BOOM MASTER Work Phone: [facility] [place] Comment on above: Excessive daytime sl eepiness (Primary Dx); Dizzy; Palpitation; Other fatigue; Seizure disorder (HCC); Migraine without aura, not intractable, with status migrainosus; IFG (impaired fasting glucose); Class 3 severe obesity with serious comorbidity and body mass index (BMI) of 40.0 to 44.9 in adult, unspecified obesity type (HCC) Start: 06-16-2024 End: 06-16-2024 Refill Wilson Dio SECTIONAL BELT MOLD ASSEMBLER.BOOM MASTER Work Phone: [facility] [place] Comment on above: Refill Request Start: 06-03-2024 End: 06-03-2024 ambulatory Wilson Dio SECTIONAL BELT MOLD ASSEMBLER.BOOM MASTER Work Phone: [facility] [place] Comment on above: Meds Start: 05-30-2024 End: 05-30-2024 ambulatory WILSON DIO Facility:[facility] Start: 05-30-2024 End: 05-30-2024 Patient encounter procedure Wilson Dio SECTIONAL BELT MOLD ASSEMBLER.BOOM MASTER Work Phone: [facility] [place] Comment on above: ROBERT (generalized anx iety disorder) (Primary Dx); Moderate episode of recurrent major depressive disorder (HCC); Hypertension, essential; IFG (impaired fasting glucose); Nonalcoholic fatty liver disease without nonalcoholic steatohepatitis (FREY); Class 3 severe obesity with serious comorbidity and body mass index (BMI) of 40.0 to 44.9 in adult, unspecified obesity type (HCC) Start: 03-14-2024 End: 03-14-2024 Patient encounter procedure Wilson Dio SECTIONAL BELT MOLD ASSEMBLER.BOOM MASTER Work Phone: [facility] [place] Comment on above: ROBERT (generalized anx iety disorder) (Primary Dx); Moderate episode of recurrent major depressive disorder (HCC); Poison ciera dermatitis; Hypertension, essential; IFG (impaired fasting glucose); Nonalcoholic fatty liver disease without nonalcoholic steatohepatitis (FREY); Class 3 severe obesity with serious comorbidity and body mass index (BMI) of 40.0 to 44.9 in adult, unspecified obesity type (HCC) Start: 02-15-2024 Refill Wilson Wharton APRN.BRIT Work Phone: Internal Medicine [place] Comment on above: Refill Request Start: 02-04-2024 End: 02-04-2024 Patient encounter procedure Wilson Wharton APRN.BOOM MASTER Work Phone: [facility] [place] Comment on above: IFG (impaired fastin g glucose) (Primary Dx); Nonalcoholic fatty liver disease without nonalcoholic steatohepatitis (FREY); Hypertension, essential; Palpitation; Dizzy; Class 3 severe obesity with serious comorbidity and body mass index (BMI) of 40.0 to 44.9 in adult, unspecified obesity type (HCC) Start: 12-25-2023 Telephone encounter Rosita Godfrey DO Work Phone: [facility] Urology Comment on above: Results Start: 12-11-2023 End: 12-11-2023 Office consultation new/estab patient 60 min Rosita Godfrey DO Work Phone: [facility] EMERGENCY DEPARTMENT Comment on above: Left nephrolithiasis (Primary Dx); Microscopic hematuria; Nocturia Start: 12-10-2023 ambulatory Wilson Wharton APRN.CNP Work Phone: [facility] [place] Comment on above: Urologist Start: 11-28-2023 ambulatory Wilson Wharton APRN.CNP Work Phone: [facility] [place] Comment on above: Dizzy Start: 11-05-2023 End: 11-05-2023 Subsequent hospital visit by physician [facility] Work Phone: Radiology Comment on above: Pelvic pain [R10.2] Start: 11-05-2023 Telephone encounter Milind pastor APRN.CNP Work Phone: OB/Gynecology Comment on above: Results Start: 11-05-2023 End: 11-05-2023 Patient encounter procedure Milind Bolaños SECTIONAL BELT MOLD ASSEMBLER.BOOM MASTER Work Phone: OB/Gynecology Comment on above: Pelvic pain (Primary Dx); Uterine leiomyoma, unspecified location; Abnormal uterine bleeding; History of kidney stones Start: 10-30-2023 Telephone encounter Wilson Cleav er SECTIONAL BELT MOLD ASSEMBLER.BOOM MASTER Work Phone: Internal Medicine [place] Comment on above: Insurance Authorizat ion Start: 10-24-2023 ambulatory Wilson Dio SECTIONAL BELT MOLD ASSEMBLER.BOOM MASTER Work Phone: [facility] [place] Start: 10-24-2023 Manual pelvic examination Wilson Dio SECTIONAL BELT MOLD ASSEMBLER.BOOM MASTER Work Phone: Internal Medicine [place] Comment on above: Pelvic pain abdomina l pain Start: 10-19-2023 End: 10-19-2023 ambulatory RODOLFO Lopez [facility] pital Start: 10-19-2023 End: 10-19-2023 Subsequent hospital visit by physician Rodolfo Ashley MD Work Phone: Lab Non-Patient Comment on above: Family history of ge ne mutation Start: 03-08-2023 End: 03-08-2023 Emergency department patient visit ERIK BAINS Facility:[facility] Start: 03-08-2023 ambulatory Wilson Dio SECTIONAL BELT MOLD ASSEMBLER.BOOM MASTER Work Phone: [facility] [place] Comment on above: Dizziness Start: 03-08-2023 End: 03-08-2023 Subsequent hospital visit by physician Provider [facility] Start: 01-22-2023 ambulatory Wilson Dio SECTIONAL BELT MOLD ASSEMBLER.BOOM MASTER Work Phone: Internal Medicine [place] Comment on above: Medication Start: 01-22-2023 E-mail encounter fro m caregiver Wilson Dio SECTIONAL BELT MOLD ASSEMBLER.BOOM MASTER Work Phone: [facility] [place] Start: 01-22-2023 Telephone encounter Wilson Cleav er SECTIONAL BELT MOLD ASSEMBLER.BOOM MASTER Work Phone: [facility] [place] Comment on above: Insurance Authorizat ion Start: 01-22-2023 End: 01-22-2023 Patient encounter procedure Wilson Dio SECTIONAL BELT MOLD ASSEMBLER.BOOM MASTER Work Phone: [facility] [place] Comment on above: Excessive daytime sl eepiness (Primary Dx); Other fatigue; Hypertension, essential; ROBERT (generalized anxiety disorder); Moderate episode of recurrent major depressive disorder (HCC); Multiple allergies Start: 12-29-2022 ambulatory Wilson Dio SECTIONAL BELT MOLD ASSEMBLER.BOOM MASTER Work Phone: [facility] [place] Comment on above: Dizzy and elevated b p Start: 11-20-2022 ambulatory Wilson Dio SECTIONAL BELT MOLD ASSEMBLER.BOOM MASTER Work Phone: [facility] [place] Comment on above: Results Start: 11-20-2022 E-mail encounter fro m caregiver Wilson Dio SECTIONAL BELT MOLD ASSEMBLER.BOOM MASTER Work Phone: [facility] [place] Start: 11-15-2022 ambulatory WILSON A DIO Facility :[facility] Start: 10-20-2022 ambulatory Wilson Dio SECTIONAL BELT MOLD ASSEMBLER.BOOM MASTER Work Phone: Internal Medicine [place] Comment on above: Results Start: 10-20-2022 E-mail encounter fro m caregiver Wilson Dio SECTIONAL BELT MOLD ASSEMBLER.BOOM MASTER Work Phone: [facility] [place] Start: 10-17-2022 End: 10-17-2022 Patient encounter procedure Wilson Dio SECTIONAL BELT MOLD ASSEMBLER.BOOM MASTER Work Phone: Internal Medicine [place] Comment on above: Moderate episode of recurrent major depressive disorder (HCC) (Primary Dx); ROBERT (generalized anxiety disorder); Other fatigue; INDIGO (obstructive sleep apnea); Seizure disorder (HCC); Encounter for therapeutic drug monitoring; Encounter for screening for diabetes mellitus Start: 07-25-2022 Refill Patria Cardona-C Work Phone: [facility] Comment on above: Refill Request Start: 07-07-2022 End: 07-07-2022 Patient encounter procedure Wilson Dio SECTIONAL BELT MOLD ASSEMBLER.BOOM MASTER Work Phone: [facility] Comment on above: ROBERT (generalized anx iety disorder) (Primary Dx); Elevated heart rate with elevated blood pressure and diagnosis of hypertension; Seizure disorder (HCC) Start: 06-10-2022 Refill Patria Gilliland A-C Work Phone: [facility] Comment on above: Refill Request Start: 05-25-2022 Telephone encounter Rekha briceño DO Work Phone: [facility] Comment on above: Returning Patient's Call Start: 05-17-2022 Refill Nick Krishna MD Work Phone: [facility] Comment on above: Refill Request Start: 05-16-2022 ambulatory REKHA WINSLOW Facility :[facility] Start: 05-16-2022 End: 05-16-2022 Subsequent hospital visit by physician Provider [facility] Comment on above: PALPITATIONS Start: 03-19-2022 Refill Wilson Wharton SECTIONAL BELT MOLD ASSEMBLER.BOOM MASTER Work Phone: [facility] Comment on above: Refill Request Start: 03-05-2022 Refill Wilson Wharton SECTIONAL BELT MOLD ASSEMBLER.BOOM MASTER Work Phone: [facility] Comment on above: Refill Request Start: 02-13-2022 End: 02-13-2022 Patient encounter procedure Jair Vanegas SECTIONAL BELT MOLD ASSEMBLER.BOOM MASTER Work Phone: [facility] Comment on above: Contact dermatitis d ue to adhesives, unspecified contact dermatitis type (Primary Dx) Start: 02-10-2022 End: 02-10-2022 Subsequent hospital visit by physician Provider [facility] Comment on above: HTN Start: 01-24-2022 Telephone encounter Wilson blum SECTIONAL BELT MOLD ASSEMBLER.BOOM MASTER Work Phone: [facility] Comment on above: Results Start: 01-20-2022 Telephone encounter Rekha briceño DO Work Phone: [facility] Comment on above: Orders (Holter Monit or ) Start: 01-20-2022 End: 01-20-2022 Patient encounter procedure Rekha Winslow DO Work Phone: [facility] Comment on above: Hypertension, essent ial (Primary Dx); Elevated heart rate with elevated blood pressure and diagnosis of hypertension Start: 01-18-2022 End: 01-18-2022 Patient encounter procedure Rekha Winslow DO Work Phone: [facility] Comment on above: Breathing difficult (Primary Dx); Shakiness; Racing heart beat Start: 01-18-2022 Telephone encounter Wilson blum APRN.CNP Work Phone: [facility] Comment on above: Hypertension Start: 01-12-2022 End: 01-12-2022 Patient encounter procedure Patria Armando PA-C Work Phone: [facility] Comment on above: Hypertension, essent ial (Primary Dx); Tension headaches Start: 01-04-2022 End: 01-04-2022 Subsequent hospital visit by physician Provider [facility] Comment on above: ACNE VULGARIS Start: 05-19-2013 Documentation procedure Josafat Harding MD Work Phone: [facility] Start: 05-19-2013 Historic EMR Josafat hilliard MD Work Phone: [facility] Procedures Date Procedure Procedure Detail Performing Clinician Start: 06-16-2025 Antibody screen VILMA ROUSE Comment on above: Order Comment: Specimen Type: BLOOD SPEC IMENOrdering Facility: [facility] Address: [address] [place] [address] Performed By: #### T [id number] ####[facility] BLOOD BANKCLIA [id number] [place] [address] [place] Start: 10-28-2024 Esophagogastroduodenoscopy transoral diagnostic Tricia Garcia PA-C Work Phone: Start: 10-28-2024 UA DIP,URINE HCG (POC) Tyra Claros MD Work Phone: Start: 08-14-2024 Hepatobil syst imag inc gb w/pharma intervenj Wilson Wharton APRN.BOOM MASTER Work Phone: Start: 08-02-2024 Us abdominal real time w/image limited Wilson Wharton APRN.BOOM MASTER Work Phone: Start: 12-11-2023 Urnls dip stick/tablet reagent auto microscopy Rosita Petersugrex MOROCHO Work Phone: Start: 12-11-2023 Urnls dip stick/tablet rgnt auto w/o microscopy Rosita Godfrey DO Work Phone: Start: 11-05-2023 Us retroperitoneal real time w/image complete Milind Bolaños BOOM MASTER Work Phone: Start: 03-08-2023 Ct head/brain w/o contrast material Erik Bains MD Work Phone: Start: 03-08-2023 GLUCOSE FASTING BLD Erik Bains MD Work Phone: Start: 03-08-2023 BASIC METABOLIC PNL Erik Bains MD Work Phone: Start: 03-08-2023 CBC + DIFF Erik Bains MD Work Phone: Start: 03-08-2023 HCG QUANTITATIVE Erik Bains MD Work Phone: Start: 03-08-2023 URINALYSIS WITH MICROSCOPIC, REFLEX CULTURE Erik Bains MD Work Phone: Start: 01-04-2022 Comprehensive metabolic 2000 panel - Serum or Plasma Estefany Jallohay BOOM MASTER Work Phone: Start: 01-04-2022 LIPID PANEL BASIC Estefany Gela BOOM MASTER Work Phone: Start: 10-14-2021 Adult depression screening assessment Provider [facility] Start: 05-17-2013 SURGICAL PATHOLOGY, CONVERTED Josafat Hale MD Work Phone: Plan of Treatment Date Care Activity Detail Author Start: 02-27-2026 Annual PCP Team Chronic Disease Visit Annual PCP Team Chronic Disease Visit [facility] Start: 02-27-2026 BP Controlled (<130/80) BP Controlled (<130/80) [facility] Start: 01-22-2026 BP Controlled (<130/80) BP Controlled (<130/80) [facility] Start: 01-08-2026 BP Controlled (<130/80) BP Controlled (<130/80) [facility] Start: 12-17-2025 BP Controlled (<130/80) BP Controlled (<130/80) [facility] Start: 11-28-2025 Annual PCP Team Chronic Disease Visit Annual PCP Team Chronic Disease Visit [facility] Start: 09-04-2025 End: 09-04-2025 Patient encounter procedure 09/04/2025 9:00 AM EST Office Visit [facility] [address] [facility] [place] [address] Lurdes Hernandez APRN.BOOM MASTER [address] [facility] [place] [address] 6 month follow up Family Tal Banda Comment on above: 6 month follow up Start: 08-03-2025 End: 08-03-2025 Patient encounter procedure 08/03/2025 9:20 AM EST Office Visit [facility] Pulmonary/Sleep/[facility]i [facility] [address] [place] [address] Ira May, RODOLFO.BOOM MASTER [address] [place] [address] 6m f/u [facility] Pulmonary/Sleep/[facility]i [facility] Comment on above: 6m f/u Start: 08-01-2025 Annual PCP Team Chronic Disease Visit Annual PCP Team Chronic Disease Visit [facility] Start: 08-01-2025 BP Controlled (<130/80) BP Controlled (<130/80) [facility] Start: 07-11-2025 Annual PCP Team Chronic Disease Visit Annual PCP Team Chronic Disease Visit [facility] Start: 07-11-2025 BP Controlled (<130/80) BP Controlled (<130/80) [facility] Start: 07-01-2025 End: 07-01-2025 Patient encounter procedure [facility] Comment on above: 1wk post nd-Lyfmco-Rvexvi-06/23/25 Start: 06-23-2025 End: 06-23-2025 Admission to same day surgery center 06/23/2025 12:10 PM EDT - 06/23/2025 4:55 PM EDT Surgery [address] [address] Ebony Barrios MD [address] [address] XI ROBOTIC LAPAROSCOPIC GASTRIC RESTRICTIVE SURG W/ BYPASS & JOAN-EN-Y [facility] Comment on above: XI ROBOTIC LAPAROSCOPIC GASTRIC RESTRICT MELIA SURG W/ BYPASS & JOAN-EN-Y Start: 06-23-2025 End: 06-23-2025 Esophagogastroduodenoscopy transoral diagnostic EGD Class 3 severe obesity with serious comorbidity and body mass index (BMI) of 40.0 to 44.9 in adult, unspecified obesity type (HCC) NAFLD (nonalcoholic fatty liver disease) Hiatal hernia Pre-diabetes Hypertension, unspecified type Gastroesophageal reflux disease without esophagitis Anxiety and depression 06/23/2025 12:10 PM EDT [facility] Start: 06-23-2025 End: 06-23-2025 Laps gstr rstcv px w/byp joan-en-y limb <150 cm XI ROBOTIC LAPAROSCOPIC GASTRIC RESTRICTIVE SURG W/ BYPASS & JOAN-EN-Y Class 3 severe obesity with serious comorbidity and body mass index (BMI) of 40.0 to 44.9 in adult, unspecified obesity type (HCC) NAFLD (nonalcoholic fatty liver disease) Hiatal hernia Pre-diabetes Hypertension, unspecified type Gastroesophageal reflux disease without esophagitis Anxiety and depression 06/23/2025 12:10 PM EDT [facility] Start: 06-23-2025 End: 06-23-2025 Laps rpr paraesphgl hrna incl fundplsty w/mesh LAPAROSCOPIC RPR PARAESOPHAGEAL HERNIA W/MESH Class 3 severe obesity with serious comorbidity and body mass index (BMI) of 40.0 to 44.9 in adult, unspecified obesity type (HCC) NAFLD (nonalcoholic fatty liver disease) Hiatal hernia Pre-diabetes Hypertension, unspecified type Gastroesophageal reflux disease without esophagitis Anxiety and depression 06/23/2025 12:10 PM EDT [facility] OR Start: 06-23-2025 Subsequent hospital visit by physician 06/23/2025 12:10 PM EDT Hospital Encounter [address] [address] Ebony Barrios MD 1 [facility] [address] [place] [address] Class 3 severe obesity with serious comorbidity and body mass index (BMI) of 40.0 to 44.9 in adult, unspecified obesity type (HCC) [E66.813, Z68.41], NAFLD (nonalcoholic fatty liver disease) [K76.0], Hiatal hernia [K44.9], Pre-diabetes [R73.03], Hypertension, unspecified type [I10], Gastroesophageal reflux disease without esophagitis [K21.9], Anxiety and depression [F41.9, F32.A] [facility] Comment on above: Class 3 severe obesity with serious carlos rbidity and body mass index (BMI) of 40.0 to 44.9 in adult, unspecified obesity type (HCC) [E66.813, Z68.41], NAFLD (nonalcoholic fatty liver disease) [K76.0], Hiatal hernia [K44.9], Pre-diabetes [R73.03], Hypertension, unspecified type [I10], Gastroesophageal reflux disease without esophagitis [K21.9], Anxiety and depression [F41.9, F32.A] Start: 06-23-2025 End: 06-23-2025 Transfusion blood/blood components TRANSFUSION BLOOD Class 3 severe obesity with serious comorbidity and body mass index (BMI) of 40.0 to 44.9 in adult, unspecified obesity type (HCC) NAFLD (nonalcoholic fatty liver disease) Hiatal hernia Pre-diabetes Hypertension, unspecified type Gastroesophageal reflux disease without esophagitis Anxiety and depression 06/23/2025 12:10 PM EDT [facility] Start: 06-16-2025 End: 06-16-2025 ambulatory 06/16/2025 10:40 AM EDT PAT Pre Surgical Testing 1 [place] [address] 1. XI ROBOTIC LAPAROSCOPIC GASTRIC RESTRICTIVE SURG W/ BYPASS & JOAN-EN-Y Pre Surgical Testing Comment on above: 1. XI ROBOTIC LAPAROSCOPIC GASTRIC RESTR ICTIVE SURG W/ BYPASS & JOAN-EN-Y Start: 06-05-2025 End: 06-05-2025 Patient encounter procedure 06/05/2025 8:30 AM [facility] BARIATRIC DEPARTMENT 1 [place] [address] Vilma Rouse APRN.BOOM MASTER 1 [place] [address] pre surg vljrg-Osnjym-Leatyg- [facility] BARIATRIC DEPARTMENT Comment on above: pre surg lyuwc-Sagvko-Vvxstf-06/23/25 Start: 06-04-2025 End: 09-03-2025 Albumin [Mass/volume] in Serum or Plasma ALBUMIN Lab Routine Class 3 severe obesity with serious comorbidity and body mass index (BMI) of 40.0 to 44.9 in adult, unspecified obesity type (HCC) Expected: 06/04/2025, Expires: 09/03/2025 [facility] Comment on above: Expected: 06/04/2025, Expires: Start: 06-04-2025 End: 09-03-2025 Basic metabolic 2000 panel - Serum or Plasma BASIC METABOLIC PANEL Lab Routine Class 3 severe obesity with serious comorbidity and body mass index (BMI) of 40.0 to 44.9 in adult, unspecified obesity type (HCC) Expected: 06/04/2025, Expires: 09/03/2025 [facility] Comment on above: Expected: 06/04/2025, Expires: Start: 06-04-2025 End: 09-03-2025 CBC panel - Blood by Automated count COMPLETE BLOOD COUNT Lab Routine Class 3 severe obesity with serious comorbidity and body mass index (BMI) of 40.0 to 44.9 in adult, unspecified obesity type (HCC) Expected: 06/04/2025, Expires: 09/03/2025 [facility] Work Phone: Comment on above: Expected: 06/04/2025, Expires: Start: 06-04-2025 End: 09-03-2025 TYPE AND SCREEN,30 DAY TYPE AND SCREEN,30 DAY Blood Bank Routine Class 3 severe obesity with serious comorbidity and body mass index (BMI) of 40.0 to 44.9 in adult, unspecified obesity type (HCC) Expected: 06/04/2025, Expires: 09/03/2025 [facility] Comment on above: Expected: 06/04/2025, Expires: Start: 05-30-2025 Annual PCP Team Chronic Disease Visit Annual PCP Team Chronic Disease Visit [facility] Start: 05-30-2025 BP Controlled (<130/80) BP Controlled (<130/80) [facility] Start: 05-27-2025 End: 05-27-2025 Patient encounter procedure 05/27/2025 8:00 AM EDT [facility] BARIATRIC DEPARTMENT 1 [place] [address] Vilma Rouse APRN.BOOM MASTER 1 [place], [place] [phone] education class [facility] BARIATRIC DEPARTMENT Comment on above: education class Start: 05-25-2025 Influenza vaccination [facility] Start: 05-15-2025 End: 05-15-2025 Patient encounter procedure 05/15/2025 9:00 AM EDT Office Visit [facility] BARIATRIC 1 [place] [address] Shelli Haque PSYD [address] [place] [phone] 3 Month Follow Up [facility] Comment on above: 3 Month Follow Up Start: 05-08-2025 End: 05-08-2025 Patient encounter procedure 05/08/2025 9:00 AM EDT Office Visit [facility] [address] [place] [address] Christina Brambila APRN.BOOM MASTER [address], [place] [address] [place] [address] In Person - Follow Up - 60 minutes [facility] Comment on above: In Person - Follow Up - 60 minutes Start: 04-24-2025 End: 04-24-2025 Patient encounter procedure 04/24/2025 8:30 AM EDT Distance Health [facility] BARIATRIC DEPARTMENT 1 [place] [address] 1 [facility] [address] [place], [place] [phone] mo#0-Oymtte-Ynfyx-Bau man-6mo(do not cancel, appt needed) [facility] BARIATRIC DEPARTMENT Comment on above: mo#5-Alzikg-Secva-Bauman-6mo(do not canc el, appt needed) Start: 04-16-2025 End: 04-16-2025 Patient encounter procedure [facility] BARIATRIC DEPARTMENT Comment on above: CONSENT-mo#4-Gkketq-Uxiyq-Sophie-6mo CONSENT-mo#6-Glo- Kfwkt-Epebxw-9vq Start: 04-15-2025 End: 07-15-2025 TYPE AND SCREEN,30 DAY TYPE AND SCREEN,30 DAY Blood Bank Routine Class 3 severe obesity with serious comorbidity and body mass index (BMI) of 40.0 to 44.9 in adult, unspecified obesity type (HCC) Expected: 04/15/2025, Expires: 07/15/2025 [facility] Comment on above: Expected: 04/15/2025, Expires: Start: 03-26-2025 End: 03-26-2025 Patient encounter procedure 03/26/2025 9:00 AM EDT Office Visit [facility] [address] [place] [address] Christina Brambila APRN.BOOM MASTER [address] [facility] [address] [place] [address] New Patient for: MDD (recurrent episode) and Anxiety [facility] Comment on above: New Patient for: MDD (recurrent episode) and Anxiety Start: 03-20-2025 End: 06-19-2025 Borrelia burgdorferi IgG and IgM panel - Serum LYME AB EARLY <=30 DAY SYMPTOMS Lab Routine Tick bite, unspecified site, initial encounter Expected: 03/20/2025, Expires: 06/19/2025 [facility] Work Phone: Comment on above: Expected: 03/20/2025, Expires: Start: 03-19-2025 End: 03-19-2025 Patient encounter procedure 03/19/2025 3:00 PM EDT [facility] Bariatric Department [address] [place] [address] Shelli Haque PSYD [address] [place] [address] f/u [facility] Comment on above: f/u Start: 03-18-2025 End: 03-18-2025 Patient encounter procedure 03/18/2025 9:15 AM EDT Office Visit [facility] [address] [place] [address] Tricia Garcia PA-C [address] [place], [place] [phone] f/u from egd [facility] Comment on above: f/u from egd Start: 03-14-2025 Annual PCP Team Chronic Disease Visit Annual PCP Team Chronic Disease Visit [facility] Start: 03-14-2025 BP Controlled (<130/80) BP Controlled (<130/80) [facility] Start: 03-05-2025 End: 06-04-2025 25-hydroxyvitamin D3 [Mass/volume] in Serum or Plasma VITAMIN D 25 HYDROXY Lab Routine Vitamin D deficiency Expected: 03/05/2025, Expires: 06/04/2025 [facility] Work Phone: Comment on above: Expected: 03/05/2025, Expires: Start: 03-05-2025 End: 03-05-2025 Patient encounter procedure [facility] BARIATRIC DEPARTMENT Comment on above: la#5-Ooijad-Wvfzn-Sophie-6mo Start: 02-27-2025 End: 02-27-2025 Patient encounter procedure 02/27/2025 9:00 AM EDT Office Visit [facility] [address] [place] [address] Wilson Wharton APRN.BOOM MASTER [address] [place] [address] 3 month follow up [facility] Comment on above: 3 month follow up Start: 02-13-2025 End: 02-13-2025 Nursing evaluation of patient and report 02/13/2025 10:00 AM EDT Nurse Visit [facility] BARIATRIC DEPARTMENT 1 [place] [address] MMPI Testing [facility] Comment on above: MMPI Testing Start: 02-07-2025 End: 05-09-2025 25-hydroxyvitamin D3 [Mass/volume] in Serum or Plasma VITAMIN D 25 HYDROXY Lab Routine Vitamin D deficiency Expected: 02/07/2025, Expires: 05/09/2025 [facility] Work Phone: Comment on above: Expected: 02/07/2025, Expires: Start: 02-03-2025 Annual PCP Team Chronic Disease Visit Annual PCP Team Chronic Disease Visit [facility] Start: 02-03-2025 BP Controlled (<130/80) BP Controlled (<130/80) [facility] Start: 01-29-2025 End: 01-29-2025 Patient encounter procedure 01/29/2025 9:30 AM EDT Education [facility] BARIATRIC DEPARTMENT 1 [place] [address] Allison Melchor, RD 1 [place] [address] mo#7-Kyangf-UlsqaDanna man-6mo [facility] BARIATRIC DEPARTMENT Comment on above: laurence#[id number]-Fqqkwx-DzbeqSenait-6mo Start: 01-22-2025 End: 01-22-2025 Patient encounter procedure 01/22/2025 8:30 AM EDT Office Visit [facility] Pulmonary/Sleep/Criti nathen [address] [address] [place] [address] Ira May, RODOLFO.BOOM MASTER [address] [place] [address] INDIGO [facility] Pulmonary/Sleep/Criti nathen Care Comment on above: INDIGO Start: 01-21-2025 End: 01-21-2025 Patient encounter procedure 01/21/2025 2:00 PM EDT [facility] Bariatric Department [address] [address] Shelli Haque, ANGELIQUE [address] [facility] [place] [address] mo#8-Itkixn-DvpxcMandyJuliane man-6mo [facility] Bariatric Department Comment on above: mo#0-Yqpoxn-Zleou-Sophie-6mo Start: 01-15-2025 End: 01-15-2025 Patient encounter procedure [facility] Cardiology Comment on above: cardiology assessment for bariatric surg clyde cardiology assessmen t for bariatric surgery/Nothing found in [employer] Start: 01-08-2025 End: 04-09-2025 Hemoglobin A1c in Blood [facility] Work Phone: Comment on above: Expected: 01/08/2025, Expires: Start: 01-08-2025 End: 04-09-2025 Lipid 1996 panel - Serum or Plasma LIPID PANEL, FASTING Lab Routine Class 3 severe obesity with serious comorbidity and body mass index (BMI) of 40.0 to 44.9 in adult, unspecified obesity type (HCC) Expected: 01/08/2025, Expires: 04/09/2025 [facility] Comment on above: Expected: 01/08/2025, Expires: Start: 01-08-2025 End: 04-09-2025 Retinol [Mass/volume] in Serum or Plasma [facility] Comment on above: Expected: 01/08/2025, Expires: Start: 01-08-2025 End: 04-09-2025 VITAMIN B1 (THIAMINE), WHOLE BLOOD [facility] Comment on above: Expected: 01/08/2025, Expires: Start: 01-08-2025 End: 04-09-2025 Zinc [Mass/volume] in Serum or Plasma [facility] Comment on above: Expected: 01/08/2025, Expires: Start: 01-08-2025 End: 01-08-2025 Patient encounter procedure 01/08/2025 9:30 AM EDT Office Visit [facility] BARIATRIC DEPARTMENT 1 [place] [address] Vilma Rouse APRN.BOOM MASTER 1 [place], [place] [phone] mo#5-Bfuivi-Qjvzw-Bau man-6mo [facility] BARIATRIC DEPARTMENT Comment on above: mo#5-Fjfldm-Mbzwh-Bauman-6mo Start: 12-22-2024 End: 12-22-2024 Patient encounter procedure 12/22/2024 1:00 PM EDT [facility] BARIATRIC DEPARTMENT 1 [place] [address] Kaya Mcdaniels, RD [address] [phone] SNA [facility] BARIATRIC DEPARTMENT Comment on above: SNA Start: 12-17-2024 End: 03-18-2025 NICOTINE & METAB, UR NICOTINE & METAB, UR Lab Routine Class 3 severe obesity with serious comorbidity and body mass index (BMI) of 40.0 to 44.9 in adult, unspecified obesity type (HCC) Expected: 12/17/2024, Expires: 03/18/2025 [facility] Work Phone: Comment on above: Expected: 12/17/2024, Expires: Start: 12-17-2024 End: 03-18-2025 Thyrotropin [Units/volume] in Serum or Plasma THYROID STIMULATING HORMONE Lab Routine Class 3 severe obesity with serious comorbidity and body mass index (BMI) of 40.0 to 44.9 in adult, unspecified obesity type (HCC) Expected: 12/17/2024, Expires: 03/18/2025 [facility] Comment on above: Expected: 12/17/2024, Expires: Start: 12-17-2024 End: 03-18-2025 TOXICOLOGY SCREEN, ROUTINE URINE TOXICOLOGY SCREEN, ROUTINE URINE Lab Routine Class 3 severe obesity with serious comorbidity and body mass index (BMI) of 40.0 to 44.9 in adult, unspecified obesity type (HCC) Expected: 12/17/2024, Expires: 03/18/2025 [facility] Comment on above: Expected: 12/17/2024, Expires: Start: 12-17-2024 End: 12-17-2024 Patient encounter procedure 12/17/2024 1:00 PM EDT Office Visit [facility] BARIATRIC DEPARTMENT 1 [place] [address] Ebony Barrios MD [address] [phone] new-mo#1-Uvctcr-Nxpdc -Sophie-6mo [facility] BARIATRIC DEPARTMENT Comment on above: new-mo#0-Hccuqi-Brxaj-Sophie-6mo Start: 11-28-2024 End: 11-28-2024 Patient encounter procedure 11/28/2024 9:20 AM EST Office Visit Internal Medicine [address] [phone] Wilson Wharton APRN.BOOM MASTER [address] [place], [place] [phone] follow up [facility] [place] Comment on above: follow up Start: 10-28-2024 End: 10-28-2024 Patient encounter procedure 10/28/2024 10:30 AM EST Appointment Ambulatory Surgery [address] [place], [place] [phone] Tyra Claros MD [address] [place] [phone] Right upper quadrant abdominal pain [R10.11] Ambulatory Surgery Comment on above: Right upper quadrant abdominal pain [R10 .11] Start: 10-23-2024 Annual PCP Team Chronic Disease Visit Annual PCP Team Chronic Disease Visit [facility] Start: 10-14-2024 End: 01-13-2025 CELIAC SCREEN WITH REFLEX CELIAC SCREEN WITH REFLEX Lab Routine Right upper quadrant abdominal pain Indigestion Bloating Intermittent diarrhea Expected: 10/14/2024, Expires: 01/13/2025 [facility] Comment on above: Expected: 10/14/2024, Expires: Start: 10-14-2024 PAP TESTING PAP TESTING [facility] Start: 10-14-2024 Screening for malignant neoplasm of cervix [facility] Start: 10-14-2024 End: 10-14-2024 Patient encounter procedure 10/14/2024 8:50 AM EST Office [facility] [address] [facility] [place] [place] [phone] Tricia Garcia PA-C [address] [facility] [place] [address] Nonalcoholic fatty liver disease without nonalcoholic steatohepatitis (FREY) [K76.0]; Right upper quadrant abdominal pain [R10.11] [facility] Comment on above: Nonalcoholic fatty liver disease without nonalcoholic steatohepatitis (FREY) [K76.0]; Right upper quadrant abdominal pain [R10.11] Start: 08-29-2024 End: 08-29-2024 Patient encounter procedure 08/29/2024 1:30 PM EST Appointment [facility] Cardiology [facility] [address] Dizzy [R42] [facility] Cardiology Comment on above: Dizzy [R42] Start: 08-15-2024 End: 08-15-2024 Patient encounter procedure 08/15/2024 9:00 AM EST Office Visit Internal Medicine [address] [address] Wilson Wharton APRN.BOOM MASTER [address] [place] [address] 5 week follow up [facility] Comment on above: 5 week follow up Start: 08-14-2024 End: 08-14-2024 Patient encounter procedure 08/14/2024 9:00 AM EST Appointment Nuclear Medicine [address] [place], [place] [phone] Right upper quadrant abdominal pain [R10.11] Nuclear Medicine Comment on above: Right upper quadrant abdominal pain [R10 .11] Start: 08-11-2024 End: 08-11-2024 Patient encounter procedure 08/11/2024 1:40 PM EST Appointment [facility] [address] [place] [id number] Dizzy [R42] [facility] Comment on above: Dizzy [R42] Start: 08-02-2024 End: 08-02-2024 Patient encounter procedure 08/02/2024 10:30 PM EST Appointment [facility] [address] [place] [address] Right upper quadrant abdominal pain [R10.11] [facility] Comment on above: Right upper quadrant abdominal pain [R10 .11] Start: 07-14-2024 End: 07-14-2024 ambulatory 07/14/2024 8:00 AM EDT Results Only [facility] [place] [place] [facility] [address] [place] [id number] [facility] [place] [place] [facility] Start: 07-11-2024 End: 10-10-2024 SHALONDA BY IFA WITH REFLEX SHALONDA BY IFA WITH REFLEX Lab Routine Dizzy Other fatigue Expected: 07/11/2024, Expires: 10/10/2024 [facility] Comment on above: Expected: 07/11/2024, Expires: Start: 07-11-2024 End: 10-10-2024 CBC W Auto Differential panel - Blood COMPLETE BLOOD COUNT AND DIFFERENTIAL Lab Routine Dizzy Other fatigue Expected: 07/11/2024, Expires: 10/10/2024 [facility] Comment on above: Expected: 07/11/2024, Expires: Start: 07-11-2024 End: 10-10-2024 Comprehensive metabolic 2000 panel - Serum or Plasma COMPREHENSIVE METABOLIC PANEL Lab Routine Dizzy Other fatigue Expected: 07/11/2024, Expires: 10/10/2024 [facility] Comment on above: Expected: 07/11/2024, Expires: Start: 07-11-2024 End: 10-10-2024 Cortisol [Mass/volume] in Serum or Plasma CORTISOL, SERUM Lab Routine Dizzy Other fatigue Expected: 07/11/2024, Expires: 10/10/2024 [facility] Comment on above: Expected: 07/11/2024, Expires: Start: 07-11-2024 End: 10-10-2024 Cortisol Free [Mass/volume] in Serum or Plasma CORTISOL, FREE Lab Routine Dizzy Other fatigue Expected: 07/11/2024, Expires: 10/10/2024 [facility] Comment on above: Expected: 07/11/2024, Expires: Start: 07-11-2024 End: 07-11-2024 Patient encounter procedure 07/11/2024 9:20 AM EDT Office Visit Internal Medicine [address] [address] Wilson Wharton APRN.BOOM MASTER [address] [place] [phone] 6 week medication follow up [facility] [place] Comment on above: 6 week medication follow up Start: 05-30-2024 End: 05-30-2024 Patient encounter procedure 05/30/2024 11:00 AM EDT Office Visit [facility] [place] [address] [place] [id number] Wilson Wharton APRN.BOOM MASTER [address] [place] [phone] follow up- metformin [facility] [place] Comment on above: follow up- metformin Start: 05-25-2024 Covid-19 Vaccine () Covid-19 Vaccine () [facility] Start: 05-25-2024 Covid-19 Vaccine ( season) Covid-19 Vaccine ( season) [facility] Start: 05-25-2024 Influenza vaccination [facility] Start: 03-10-2024 End: 03-10-2024 Patient encounter procedure 03/10/2024 11:20 AM EDT Office Visit [facility] [place] [address] [place], [place] [phone] Wilson Wharton APRN.BOOM MASTER [address] [place], [place] [phone] 5 week follow up of new medication [facility] [place] Comment on above: 5 week follow up of new medication Start: 01-23-2024 ANNUAL PCP TEAM CHRONIC DISEASE VISIT ANNUAL PCP TEAM CHRONIC DISEASE VISIT [facility] Start: 12-25-2023 End: 03-25-2024 URINALYSIS, REFLEX MICROSCOPIC URINALYSIS, REFLEX MICROSCOPIC Lab Routine Microscopic hematuria Expected: 12/25/2023, Expires: 03/25/2024 [facility] Work Phone: Comment on above: Expected: 12/25/2023, Expires: Start: 10-17-2023 ANNUAL PCP TEAM CHRONIC DISEASE VISIT ANNUAL PCP TEAM CHRONIC DISEASE VISIT [facility] Start: 09-24-2023 Depression Assessment Depression Assessment [facility] Start: 07-07-2023 ANNUAL PCP TEAM CHRONIC DISEASE VISIT ANNUAL PCP TEAM CHRONIC DISEASE VISIT [facility] Start: 05-25-2023 Covid-19 Vaccine ( season) Covid-19 Vaccine ( season) [facility] Start: 05-25-2023 FLU (#1) FLU (#1) [facility] Start: 05-25-2023 Influenza vaccination [facility] Start: 02-13-2023 ANNUAL PCP TEAM CHRONIC DISEASE VISIT ANNUAL PCP TEAM CHRONIC DISEASE VISIT [facility] Start: 01-20-2023 ANNUAL PCP TEAM CHRONIC DISEASE VISIT ANNUAL PCP TEAM CHRONIC DISEASE VISIT [facility] Start: 01-18-2023 ANNUAL PCP TEAM CHRONIC DISEASE VISIT ANNUAL PCP TEAM CHRONIC DISEASE VISIT [facility] Start: 01-12-2023 ANNUAL PCP TEAM CHRONIC DISEASE VISIT ANNUAL PCP TEAM CHRONIC DISEASE VISIT [facility] Start: 12-05-2022 ANNUAL PCP TEAM CHRONIC DISEASE VISIT ANNUAL PCP TEAM CHRONIC DISEASE VISIT [facility] Start: 10-17-2022 End: 12-17-2022 25-hydroxyvitamin D3 [Mass/volume] in Serum or Plasma [facility] Work Phone: Comment on above: Expected: 10/17/2022, Expires: Start: 10-17-2022 End: 12-17-2022 Cobalamin (Vitamin B12) [Mass/volume] in Serum or Plasma [facility] Work Phone: Comment on above: Expected: 10/17/2022, Expires: Start: 10-17-2022 End: 12-17-2022 Comprehensive metabolic 2000 panel - Serum or Plasma [facility] Work Phone: Comment on above: Expected: 10/17/2022, Expires: 3 Start: 10-17-2022 End: 12-17-2022 Hemoglobin A1c in Blood [facility] Work Phone: Comment on above: Expected: 10/17/2022, Expires: 3 Start: 10-17-2022 End: 12-17-2022 Iron and Iron binding capacity panel - Serum or Plasma [facility] Work Phone: Comment on above: Expected: 10/17/2022, Expires: 3 Start: 10-17-2022 End: 12-17-2022 Thyrotropin [Units/volume] in Serum or Plasma [facility] Work Phone: Comment on above: Expected: 10/17/2022, Expires: 3 Start: 10-17-2022 End: 12-17-2022 Thyroxine (T4) free [Mass/volume] in Serum or Plasma [facility] Work Phone: Comment on above: Expected: 10/17/2022, Expires: 3 Start: 10-17-2022 End: 12-17-2022 Triiodothyronine (T3) Free [Mass/volume] in Serum or Plasma [facility] Work Phone: Comment on above: Expected: 10/17/2022, Expires: 3 Start: 10-14-2022 Adult depression screening assessment DEPRESSION SCREENING [facility] Start: 05-25-2022 Influenza vaccination INFLUENZA (#1) [facility] Start: 2022 HPV Vaccine (1 - 3-dose SCDM series) HPV Vaccine (1 - 3-dose SCDM series) [facility] Start: 01-20-2022 End: 03-22-2022 Thyrotropin [Units/volume] in Serum or Plasma TSH BLD Lab Routine Hypertension, essential Expected: 01/20/2022, Expires: 03/22/2022 [facility] Work Phone: Comment on above: Expected: 01/20/2022, Expires: 2 Start: 09-24-2021 DEPRESSION ASSESSMENT DEPRESSION ASSESSMENT [facility] Start: 2016 Microscopic observation [Identifier] in Cervix by Cyto stain Pap Smear [facility] Start: 2014 Hepatitis B Vaccine (1 of 3 - 19+ 3-dose series) Hepatitis B Vaccine (1 of 3 - 19+ 3-dose series) [facility] Start: 2014 Urine microalbumin profile [facility] Start: 2013 BP CONTROLLED (<130/80) BP CONTROLLED (<130/80) [facility] Start: 2011 MenB (1 of 2 - MenB 2-Dose Series Bexsero) MenB (1 of 2 - MenB 2-Dose Series Bexsero) [facility] Start: 2009 PEDS TO ADULT TRANSITION ANNUAL ASSESSMENT PEDS TO ADULT TRANSITION ANNUAL ASSESSMENT [facility] Start: 2007 PEDS TO ADULT TRANSITION INITIAL DISCUSSION PEDS TO ADULT TRANSITION INITIAL DISCUSSION [facility] Start: 2006 HPV VACCINE (1 - 2-dose series) HPV VACCINE (1 - 2-dose series) [facility] Start: 2002 Tetanus Diphtheria and Pertussis Vaccines (1 - Tdap) Tetanus Diphtheria and Pertussis Vaccines (1 - Tdap) [facility] Start: 2000 COVID-19 VACCINE (#1) COVID-19 VACCINE (#1) [facility] Start: 2000 COVID-19 VACCINE (1) COVID-19 VACCINE (1) [facility] Start: 1996 MMR (1 of 1 - Standard series) MMR (1 of 1 - Standard series) [facility] Start: 1996 Varicella (1 of 2 - 2-dose childhood series) Varicella (1 of 2 - 2-dose childhood series) [facility] Start: 1995 COVID-19 (#1) COVID-19 (#1) [facility] Start: 1995 COVID-19 VACCINE (#1) COVID-19 VACCINE (#1) [facility] Start: 1995 HEPATITIS B (1 of 3 - 3-dose series) HEPATITIS B (1 of 3 - 3-dose series) [facility] Start: 1995 Hepatitis B Vaccine (1 of 3 - 3-dose series) Hepatitis B Vaccine (1 of 3 - 3-dose series) [facility] Bacteria identified in Urine by Culture URINE CULTURE Microbiology Routine Pelvic pain History of kidney stones 11/05/2023 1:35 PM EST [facility] Work Phone: Calprotectin [Mass/m ass] in Stool CALPROTECTIN,FECAL Lab Routine Bloating Intermittent diarrhea Ordered: 10/14/2024 [facility] Comment on above: Ordered: 10/14/2024 Cardiovascular funct ion eval w/tilt table w/mntr TILT TABLE EVALUATION Cardiology Routine Dizzy Palpitation Other fatigue Ordered: 07/11/2024 [facility] Work Phone: Comment on above: Ordered: 07/11/2024 End: 10-14-2025 EGD DIAGNOSTIC EGD DIAGNOSTIC Endoscopy Routine Right upper quadrant abdominal pain Indigestion Bloating 1 Occurrences starting 10/14/2024 until 10/14/2025 [facility] Comment on above: 1 Occurrences starting 10/14/2024 until 10/14/2025 FAT, FECAL QUAL FAT, FECAL QUAL Lab Routine Bloating Intermittent diarrhea Ordered: 10/14/2024 [facility] Comment on above: Ordered: 10/14/2024 Genetic Sendout: MELONY K2 known family variant testing Genetic Sendout: CHEK2 known family variant testing Lab Routine Family history of gene mutation 10/19/2023 12:00 AM EST [facility] Work Phone: Giardia lamblia+Cryp tosporidium sp Ag [Presence] in Stool by Immunoassay CRYPTOSPORIDIUM AND GIARDIA ANTIGENS BY EIA Microbiology Routine Bloating Intermittent diarrhea Ordered: 10/14/2024 [facility] Work Phone: Comment on above: Ordered: 10/14/2024 H&P for surgery H&P FOR SURGERY Procedures Routine Class 3 severe obesity with serious comorbidity and body mass index (BMI) of 40.0 to 44.9 in adult, unspecified obesity type (HCC) Ordered: 04/15/2025 [facility] Work Phone: Comment on above: Ordered: 04/15/2025 Helicobacter pylori Ag [Presence] in Stool by Immunoassay HELICOBACTER PYLORI ANTIGEN BY EIA, STOOL Microbiology Routine Right upper quadrant abdominal pain Ordered: 08/04/2024 [facility] Comment on above: Ordered: 08/04/2024 End: 01-20-2023 HOLTER MONITOR 24 HOUR HOLTER MONITOR 24 HOUR ECG Routine Hypertension, essential 1 Occurrences starting 01/20/2022 until 01/20/2023 [facility] Work Phone: Comment on above: 1 Occurrences starting 01/20/2022 until 01/20/2023 End: 10-17-2023 HOME SLEEP APNEA TEST (HSAT) HOME SLEEP APNEA TEST (HSAT) Procedures Routine Other fatigue INDIGO (obstructive sleep apnea) 1 Occurrences starting 10/17/2022 until 10/17/2023 [facility] Work Phone: Comment on above: 1 Occurrences starting 10/17/2022 until 10/17/2023 End: 08-10-2025 MR Brain WO and W contrast IV MRI BRAIN WO/W IVCON Radiology Routine Dizzy Other fatigue Seizure disorder (HCC) Migraine without aura, not intractable, with status migrainosus 1 Occurrences starting 07/11/2024 until 08/10/2025 [facility] Comment on above: 1 Occurrences starting 07/11/2024 until 08/10/2025 End: 08-11-2024 MR Brain WO and W contrast IV MRI BRAIN WO/W IVCON Radiology Routine Dizzy Other fatigue Seizure disorder (HCC) Migraine without aura, not intractable, with status migrainosus 1 Occurrences starting 08/11/2024 until 08/11/2024 [facility] Work Phone: Comment on above: 1 Occurrences starting 08/11/2024 until 08/11/2024 End: 09-03-2025 NM Biliary ducts and Gallbladder Views for patency of biliary structures and ejection fraction W sincalide and W radionuclide IV NM HEPATOBILIARY W EF AND/OR RX Radiology Routine Right upper quadrant abdominal pain 1 Occurrences starting 08/04/2024 until 09/03/2025 [facility] Work Phone: Comment on above: 1 Occurrences starting 08/04/2024 until 09/03/2025 OUTSIDE VENDOR CARDI AC OUTPATIENT EXTENDED RHYTHM RECORDING (WITHOUT TELEMETRY) OUTSIDE VENDOR CARDIAC OUTPATIENT EXTENDED RHYTHM RECORDING (WITHOUT TELEMETRY) Holter Routine Hypertension, essential Palpitation Dizzy Ordered: 02/04/2024 [facility] Work Phone: Comment on above: Ordered: 02/04/2024 PANC ELASTASE, FECAL PANC ELASTA SE, FECAL Lab Routine Bloating Intermittent diarrhea Ordered: 10/14/2024 [facility] Comment on above: Ordered: 10/14/2024 SURGICAL PATHOLOGY [facility] Work Phone: Comment on above: Release Upon Ordering for 1 Occurrences starting 10/28/2024, 1 completed End: 08-31-2025 US Abdomen RUQ US ABD RIGHT UPPER QUADRANT Radiology SHARA Right upper quadrant abdominal pain 1 Occurrences starting 08/01/2024 until 08/31/2025 [facility] Work Phone: Comment on above: 1 Occurrences starting 08/01/2024 until 08/31/[address] [facility] Immunizations Immunization Date Immunization Notes Care Provider Jason tierney 10-14-2021 influenza, injectabl e, quadrivalent, contains preservative Provider [facility] 10-14-2021 influenza, injectabl e, quadrivalent, preservative free Provider [facility] Work Phone: 10-14-2021 influenza virus vaccine, unspecified formulation Josafat Harding MD Work Phone: [facility] Payers Date Payer Category Payer [employer] BLUE CARD PPO OOS [id number] 2021 Unknown ANTHEM BLUE CARD PPO OOS [id number] 2021-Present [phone] [place] [id number] PPO [id number] 2021 Unknown ANTHEM BLUE CARD PPO OOS [id number] 2021-Present [phone] [place] [id number] PPO [id number] 2021 Unknown [id number] 2020 Unknown [id number] 1995 Unknown [id number] Unknown [id number] Unknown [id number] Unknown [id number] Unknown [id number] Social History Date Type Detail Facility Start: 01-03-2021 End: 10-17-2022 Tobacco smoking status NHIS Never smoked tobacco [facility] Start: 01-03-2021 End: 10-17-2022 Tobacco use and exposure Smokeless tobacco non-user [facility] Start: 11-18-2021 End: 06-05-2025 Alcohol intake Ex-drinker (finding) [facility] Start: 1995 Sex Assigned At Not on file [facility] Start: 12-09-2021 End: 07-07-2022 Exposure to SARS-CoV-2 (event) Not sure [facility] Tobacco smoking stat us NYIS Tobacco smoking consumption unknown [facility] Start: 01-22-2023 End: 10-25-2023 History of Social function [facility] Work Phone: Start: 01-22-2023 End: 10-25-2023 Tobacco use panel [facility] Work Phone: Start: 04-02-2018 Adult Depression Screening Assessment 6 [facility] Work Phone: Has the [employer], or [employer] threatened to shut off services in your home in past 12Mo No [facility] Are you now , , , , never or living with a partner? [facility] How often to you hav e a drink containing alcohol? Never [facility] How hard is it for y ou to pay for the very basics like food, housing, medical care, and heating Not very hard [facility] Do you feel stress - tense, restless, nervous, or anxious, or unable to sleep at night because your mind is troubled all the time - these days [OSQ] Only a little [facility] (I/We) worried whesean er (my/our) food would run out before (I/we) got money to buy more. Never true [facility] Do you belong to any clubs or organizations such as buddhist groups, unions, fraternal or athletic groups, or school groups? Yes [facility] Goals Date Patient Goal Desired Activity /State Personal health goal Personal health goal Personal health goal Personal health goal Clinical Notes 01-04-2021 to 08-01-2025 Vilma Rouse APRN.BOOM MASTER - 06/05/2025 8:30 AM Vilma Phelan APRN.CNP - 05/27/2025 8:34 AM EDTPatient Kaya Beard RD - 04/24/2025 8:30 AM Heather Streeter - 04/17/2025 9:56 AM EDT Note Date & Type Note Facility 08-01-2025 Note HNO ID: [id number] Author: MILIND SELF RT(R) Service: ? Author Type: Technologist Type: Progress Notes Filed: 08/01/2025 08:20 Note Text: Radiology Service Progress Note PATIENT NAME: Poly Armando DATE OF SERVICE: August 01, 2025 TIME: 8:20 AM PATIENT IDENTITY VERIFICATION COMPLETED USING TWO (2) IDENTIFIERS: Name and Date of confirmed by patient verbally and Name and Date of confirmed by identification band. FALL SCREENING: Has the patient had 2 falls in the last year or 1 fall with injury or currently using an Ambulatory Assistive Device (Walker, Cane, Wheelchair, Crutches, etc.)? No PATIENT GENDER DATA: Assigned female at . status: : No status: NO. PATIENT RELEVANT IMPLANT DATA REVIEWED: Not Applicable PATIENT PRESENTS WITH AN IMPLANTABLE OR ATTACHED GEOGRAPHIC INFORMATION SYSTEMS ENGINEER: N/A RADIOLOGY DEPARTMENT: Ultrasound PERIPHERAL IV DATA: Not applicable SIGNED BY: RT Cortez(R) August 01, 2025 8:[address] [facility]-01[place]2025 Note HNO ID: [id number] Author: CODIE GREENE APRN.BRIT Service: ? Author Type: Nurse Practitioner Type: Progress Notes Filed: 07/01/2025 10:10 Note Text: Name: Poly Armando Index Surgery Date of Surgery: 06/23/2025 Surgeon: Dr. Barrios Surgical Procedure: Lap RYGB Pre-surgical weight: 244 lb Extended Lovenox: No Actigall: Yes - RX sent PPI: Yes - RX sent Tylenol: Yes - RX sent Zofran: Yes - RX sent Future lab orders placed Codie Greene APRN.[facility] 07-01-2025 Note HNO ID: [id number] Author: EBONY BARRIOS MD Service: ? Author Type: Physician Type: Progress Notes Filed: 07/01/2025 10:10 Note Text: BARIATRIC SURGERY CLINIC FOLLOW UP NOTE Clinic Date: 07/01/2025 Poly Armando, 30 year old [address] [place] [id number] Index Surgery Date of Surgery: 06/23/2025 Surgeon Attending: Ebony Barrios MD Surgical Procedure: Lap RYGB Pre-surgical weight: 110.7 kg (244 lb) Other Bariatric Surgeries None Time Since Surgery: 8 days Extra Procedures: None COMPLICATIONS DURING ADMISSION: None Operative Complications: No Complications Prior to Discharge: No COMPLICATIONS SINCE DISCHARGE?: NONE Estimated body mass index is 40.46 kg/m? as calculated from the following: Height as of this encounter: 160 cm (5' 3). Weight as of this encounter: 103.6 kg (228 lb 6.4 oz). Baker weight: 64 kg (141 lb 2.3 oz) Excess weight: 46.7 kg (102 lb 13.7 oz) % of excess body weight lost: 7.076 kg (15 lb 9.6 oz) (15.17% of excess weight loss) HISTORY: Fever/Chills: Denies Abdominal Pain: Denies Back Pain: Denies Increased Heart Rate: Denies Bloating / Hiccups: Denies Shortness of Breath: Denies Cough / Wheezing: Denies Calf/Thigh pain or swelling: Denies Decreased Urine Output: Denies Nausea/Vomiting: Denies Diarrhea: Denies Bowel function: daily BM Reflux/Regurgitation: denies Current Diet: per handbook Daily approximate Fluid intake: 60-70 fl oz per 24 hours Daily approximate protein intake: 32 to 48 grams per 24 hours - working on transitioning to a new protein shake Present Activity level: ADLs, walking around the block Have you attended any Support Group? No attendance Current Medications: Current Outpatient Medications Medication Sig acetaminophen (TYLENOL EXTRA STRENGTH) 500 mg tablet Take 2 tablets by mouth every 6 hours as needed for pain for up to 7 days. ursodiol (ACTIGALL) 300 mg capsule Take 1 capsule by mouth two times a day. TO START AFTER SURGERY. pantoprazole DR (PROTONIX) 40 mg tablet Take 1 tablet by mouth once daily. TO START AFTER SURGERY. Take every day for 6 months after surgery. ondansetron (ZOFRAN) 4 mg tablet Take 1 tablet by mouth every 8 hours as needed for nausea/vomiting for up to 15 doses. TO START AFTER SURGERY. desvenlafaxine ER (PRISTIQ) 25 mg 24 hr tablet Take 1 tablet by mouth once daily. Combine with Lexapro x 30 days then D.C escitalopram oxalate (LEXAPRO) 20 mg tablet Take 1 tablet by mouth once daily. propranolol ER (INDERAL LA) 160 mg Cs24 Take 1 capsule by mouth once daily. No current facility-administered medications for this visit. Discontinued Medications: There are no discontinued medications. REVIEW OF SYSTEMS: CONSTITUTIONAL: Patient denies fevers, chills, sweats and weight changes. EYES: Patient denies any visual symptoms. EARS, NOSE, AND THROAT: No difficulties with hearing. No symptoms of rhinitis or sore throat. CARDIOVASCULAR: Patient denies chest pains, palpitations, orthopnea and paroxysmal nocturnal dyspnea. RESPIRATORY: No dyspnea on exertion, no wheezing or cough. GI: No nausea, vomiting, diarrhea, constipation, abdominal pain, hematochezia or melena. : No urinary hesitancy or dribbling. No nocturia or urinary frequency. No abnormal urethral discharge. MUSCULOSKELETAL: No myalgias or arthralgias. NEUROLOGIC: No chronic headaches, no seizures. Patient denies numbness, tingling or weakness. PSYCHIATRIC: Patient denies problems with mood disturbance. No problems with anxiety. ENDOCRINE: No excessive urination or excessive thirst. DERMATOLOGIC: Patient denies any rashes or skin changes. PHYSICAL EXAM: PHYSICAL EXAMINATION:BP 102/74 Pulse 72 Ht 160 cm (5' 3) Wt 103.6 kg (228 lb 6.4 oz) LMP 06/19/2025 (Exact Date) SpO2 98% BMI 40.46 kg/m? GENERAL: No apparent distress. Pt is alert and oriented x3. VITAL SIGNS: HR, BP, Temp; Normal HEENT: Head is normocephalic and atraumatic. Extraocular muscles are intact. Nares appeared normal. Mouth is well hydrated and without lesions. Mucous membranes are moist. NECK: Supple. LUNGS: non-labored respirations, chest rise symmetrical HEART: Regular rate and rhythm ABDOMEN: Soft, nontender, and nondistended. Incisions c/d/I and healing well. EXTREMITIES: Without any cyanosis, clubbing, rash, lesions or edema. NEUROLOGIC: AANDOx3 PSYCHIATRIC: pleasant, maintains eye contact SKIN: No ulceration or induration present. IMPRESSION: Normal post-OP course ASSESSMENT/PLAN: 1. S/P gastric bypass - ICD9: V45.86, ICD10: Z98.84 (primary diagnosis) - Doing well s/p RYGB with no current issues. Encouraged her to increase protein intake. - BASIC METABOLIC PANEL - COMPLETE BLOOD COUNT - FERRITIN - FOLATE, SERUM - IRON AND TIBC - PTH INTACT - VITAMIN A (RETINOL), SERUM OR PLASMA - VITAMIN B1 (THIAMINE), WHOLE BLOOD - VITAMIN B12 - VITAMIN D 25 HYDROXY - ZINC (more content not included)... [facility] 07-01-2025 Note HNO ID: [id number] Author: KAYA MCDANIELS RD Service: ? Author Type: Registered Dietitian Type: Progress Notes Filed: 07/01/2025 09:34 Note Text: 1 Week Post-Op Poly Armando Surgery Date: 06/23/[address] Barrios CBW: 228 lbs Compliance with Full Liquid Diet: Yes Tolerating by mouth well: Yes Nausea: No Vomiting: No Constipation: No Diarrhea:No Drinking Slowly: Yes Completed food record: Yes Journal brought to appointment: Yes broth, water , protein shake (16, ), and SF popsicles/jello 32-48 average protein intake (g) 60-70 average liquid intake (oz) Food/beverage intolerance: none Exercise: walking 30 min/day Food Insecurity Screening: Food Insecurity: No Food Insecurity (02/26/2025) Hunger Vital Sign Worried About Running Out of Food in the Last Year: Never true Ran Out of Food in the Last Year: Never true VRT MV: [employer] 45 - chewable Calcium citrate: blue bonnet 2 T Written information provided and reviewed: soft diet vitamin schedule Reinforced Behaviors: see below Patient presents for follow up, she is 1 week s/p LRYGB and doing well. She is doing well with her fluids, encouraged finding a higher gram protein shake to reduce volume and achieve protein goals. Is reporting gas, using gas x as needed. She is walking for activity. She has started her post-op vitamins above - is tolerating well. Reviewed phase III recommendations/guidelines with patient via bariatric manual, will advance at 07/07 . Plan: f/u RD at 6 weeks post-op Goals advance to phase III at 2 weeks to 8 weeks post-op Blood Pressure < 130/80 journal daily and bring to all appointments-meet protein/fluid goals 5 days/week- 60-90 g/day and 64 oz Start time: 9:23 End time: 9:33 Total time spent in direct patient contact = 10 minutes. MNT Billing Type: Re-assess (Units: 1) Kaya Mcdaniels RD This note was generated using voice recognition technology and may contain grammatical errors. [facility] 07-01-2025 Note Education (AGGENS4) POLY ARMANDO ([id number]) 1995 F Date Time Provider Department 07/01/25 9:45 AM KAYA MCDANIELSENS4 Reason for Visit: Post Op [174] Primary Visit Diagnosis:Dietary counseling and surveillance [Z71.3] Other Visit Diagnosis:Class 3 severe obesity with serious comorbidity and body mass index (BMI) of 40.0 to 44.9 in adult, unspecified obesity type (HCC) [E66.813, Z68.41] Order(s):FOLLOW UP IN GENERAL SURGERY [3207975] Order #: [id number]: 1 FUTURE During your visit today, we recorded the following information about you: Weight Height 102.6 kg 1.6 m Allergies As of Date: 07/01/2025 Noted Allergy Reaction LISINOPRIL 01/20/2022 5 - Intolerance TAPE (ADHESIVE TAPE (ROSINS)) 08/14/2024 2 - Rash Date Reviewed: 07/01/2025 Reviewed by: Era Mcleod MA - Fully Assessed Prescriptions as of 07/01/2025 - acetaminophen (TYLENOL EXTRA STRENGTH) 500 mg tablet Take 2 tablets by mouth every 6 hours as needed for pain for up to 7 days. - ursodiol (ACTIGALL) 300 mg capsule Take 1 capsule by mouth two times a day. TO START AFTER SURGERY. - pantoprazole DR (PROTONIX) 40 mg tablet Take 1 tablet by mouth once daily. TO START AFTER SURGERY. Take every day for 6 months after surgery. - ondansetron (ZOFRAN) 4 mg tablet Take 1 tablet by mouth every 8 hours as needed for nausea/vomiting for up to 15 doses. TO START AFTER SURGERY. - desvenlafaxine ER (PRISTIQ) 25 mg 24 hr tablet Take 1 tablet by mouth once daily. Combine with Lexapro x 30 days then D.C - escitalopram oxalate (LEXAPRO) 20 mg tablet Take 1 tablet by mouth once daily. - propranolol ER (INDERAL LA) 160 mg Cs24 Take 1 capsule by mouth once daily. Encounter Status:Closed by KAYA MCDANIELS on 07/01/25 [facility] 06-24-2025 Note HNO ID: [id number] Author: EBONY BARRIOS MD Service: General Surgery Author Type: Resident Type: Progress Notes Filed: 06/24/2025 13:05 Note Text: Attestation signed by Ebony Barrios MD at 06/24/2025 1:05 PM TEACHING PHYSICIAN NOTE OF PERSONAL INVOLVEMENT IN CARE: I have personally seen and examined the patient and performed the medical decision-making components. I have reviewed the medical student documentation and verified the findings in the note as written. Any additions or changes are noted in bold/italics. Signature: Ebony Barrios Date: 06/24/2025 Time: 1:05 PM - Doing well and meeting all d/c criteria. D/c home on tramadol x 6 tabs. Continue home meds except tramadol and pepcid MEDICAL STUDENT Elective General Surgery (Green Surgery) Progress Note This note was generated by a medical student working under the supervision of a resident and attending physician. When co-signed, the physical exam findings, assessment, and plan as written below are are considered accurate. SERVICE DATE: 06/24/2025 [facility] General [facility] (Green Surgery) Service Pager: For questions or concerns Mon-Fri 6a-5p please page [phone]. After 5pm and on Weekends and Holidays, please page [phone] if in ICU or [phone] if on RNF. Resident Supervision of Medical Student I personally saw and examined the patient. I reviewed the medical student's note. I agree with the medical student's assessment and plan unless otherwise noted below. - Patient seen in the AM. NAOE. VSS. - Pain well controled - Possible DC later today Signature: Mannie Zelaya DO Date: 06/24/2025 Time: 6:47 AM SUBJECTIVE: Patient seen and examined at bedside this morning, VSS. Denies nausea, vomiting. Pain well controlled with meds. Ambulating this AM without issue. Voiding without issue. Denies BM and flatus, fever, chills. Tolerating liquids, has drank 5 oz total overnight. Tolerating diet DIET BARIATRIC Nausea No Emesis No Flatus No Bowel movement No Pain Controlled Yes Ambulating Yes OBJECTIVE: Vitals: Temp (24hrs), Av.7 ?C (98 ?F), Min:36.3 ?C (97.3 ?F), Max:37.4 ?C (99.3 ?F) BP 139/84 Pulse 73 Temp 37.4 ?C (99.3 ?F) (Oral) Resp 16 Ht 160 cm (5' 3) Wt 108.9 kg (240 lb) LMP 06/19/2025 (Exact Date) SpO2 98% BMI 42.51 kg/m? O2 Therapy: Room Air IANDO: Date 06/23/25 07 - 06/24/25 0659 06/24/25 07 - 06/25/25 0659 Shift 9302-4720 1951-5995 4137-5133 24 Hour Total 1069-5520 0296-1882 9682-0121 24 Hour Total INTAKE PO 60 120 180 PO 60 120 180 IV 220 1715 1935 Volume (mL) (cefOXitin 2 g in NaCl 0.9% 100 mL Vial-Bag (MEFOXIN)) 120 120 Volume (mL) (magnesium sulfate iv piggyback in sterile water 2 g 50 mL) 100 100 Volume (mL) (lactated ringers iv infusion) 1715 1715 Shift Total 696 64 0388 2115 OUTPUT Urine 200 1250 1450 Void (ml) 200 1250 1450 Urine Not Saved. 1 x 1 x Blood 10 10 Estimated Blood loss 10 10 Shift Total 210 1250 1460 Weight (kg) 108.9 108.9 108.9 108.9 108.9 108.9 108.9 MEDICATIONS Current Facility-Administered Medications Medication Dose Route Frequency propranolol ER 160 mg cap(s) (INDERAL LA) 160 mg ORAL DAILY escitalopram oxalate 20 mg tab(s) (LEXAPRO) 20 mg ORAL DAILY lactated ringers iv infusion 100 mL/hr INTRAVENOUS CONTINUOUS pantoprazole DR 40 mg tab(s) (PROTONIX) 40 mg ORAL DAILY (6 AM) ondansetron (PF) 4 mg injection (ZOFRAN) 4 mg INTRAVENOUS q 4 H PRN acetaminophen 1,000 mg tab(s) (TYLENOL) 1,000 mg ORAL q 6 H traMADol 50-100 mg tab(s) (ULTRAM) 50-100 mg ORAL q 6 H PRN enoxaparin 40 mg injection (LOVENOX) 40 mg SUBCUTANEOUS q 12 HR NaCl 0.9% iv flush bag 20 mL INTRAVENOUS PRN Labs: Recent Labs 06/24/25 0502 06/23/25 1633 NA 137 -- K 4.7 -- CHLOR 102 -- CO2 22 -- BUN 6* -- CREAT 0.57* -- GLUC 143* -- ANION 13 -- CA 8.5 -- WBC 9.95 13.63* HB 12.4 13.4 HCT 36.9 41.2 PLT 227 167 Physical Exam: GENERAL: resting comfortably, in no acute distress HEENT: normocephalic, atraumatic, EOMI LUNGS: Unlabored breathing, equal chest rise bilaterally CARDIAC: Regular rate and rhythm as above ABDOMEN: Soft, tender to palpation in epigastric region, non-distended, incisions covered with band aid EXTREMITIES: REINA, No deformities, No edema SKIN: Skin color, texture, turgor normal, No rashes or lesions NEURO: AANDOx3 PSYCH: normal mood and affect ASSESSMENT AND PLAN: Assessment Active Hospital Problems Diagnosis Date Noted Obesity, morbid, BMI 40.0-49.9 ([facility]) 06/23/2025 Assessment: 30 year old female with PMHx of prediabetes, GERD, absence seizure, NAFLD. Patient is s/p Joan-en-Y gastric bypass with Dr. Barrios on 06/23. Hospital Course/Operations/Procedures: 06/23/2025 Procedure(s) with comments: XI ROBOTIC LAPAROSCOPIC GASTRIC RES (more content not included)... [facility] 06-23-2025 Note HNO ID: [id number] Author: DALILA LUIS MD Service: General Surgery Author Type: Resident Type: Plan of Care Filed: 06/23/2025 21:33 Note Text: Post-Op Check Subjective: Patient seen and examined at the bedside. They are not tachycardic, hypotensive, or hypoxic. They confirm good pain control. They Deny nausea. She is feeling OK after surgery, abdomen feels sore but pain is tolerable. Objective: 06/23/25 1700 06/23/25 1715 06/23/25 1813 06/23/25 1841 BP: 110/61 141/78 Pulse: 70 84 68 Resp: Temp: 36.8 ?C (98.2 ?F) TempSrc: Axillary SpO2: 95% 96% 96% Weight: 108.9 kg (240 lb) Height: 160 cm (5' 3) Physical Exam: General: Alert, no acute distress, resting in bed Lungs: Regular respiratory effort, good diaphragmatic excursion, on room air Chest: Regular rate, normotensive, BP as above Abdomen: Soft, Appropriately tender to palpation, no rebound or guarding, incisions are clean, dry, intact with overlying bandages Assessment/Plan: - Continue current management - Pain and nausea control as ordered - Mobilize, IS - Tolerating Diet: DIET BARIATRIC DIET BARIATRIC Dalila Luis MD General Surgery PGY-1 June 2359:29 PM [facility] 06-23-2025 Note HNO ID: [id number] Author: MEAGAN HURTADO APRN.CRNA Service: Anesthesiology Author Type: Nurse Final Assembly Inspector Type: Anesthesia Procedure Notes Filed: 06/23/2025 12:24 Note Text: ANESTHESIOLOGY PROCEDURE NOTE Airway General Information Procedure Start Time/Medication Administration: 06/23/2025 11:54 AM Procedure End Time: 06/23/2025 11:58 AM Patient location during procedure: OR Timeout Performed Pre-procedure: timeout performed Consent Obtained: Yes Patient identity confirmed: arm band and patient Staffing BOAT ASSEMBLER: Meagan Hurtado APRN.BOAT ASSEMBLER Performed by: MIGUEL Indications and Patient Condition Indications for airway management: anesthesia Preoxygenated: yes anesthesia circuit Patient position: sniffing Method: asleep Final Airway Details Final airway type: endotracheal airwayFinal Endotracheal Airway: ETT Cuffed: yes Successful intubation technique: direct laryngoscopy Endotracheal tube insertion site: oral Blade: Bharath Blade size: #4 ETT size (mm): 7.5 Measured from: lips Measurement (cm): 21 Placement verified by: chest auscultation and capnometry Cormack-Lehane Classification: grade I - full view of glottis Number of attempts at approach: 1 Airway not difficult SIGNATURE: Meagan Hurtado APRN.BOAT ASSEMBLER PATIENT NAME: Poly Armando DATE: June 23, 2025 TIME: 12:23 PM CSN: [id number] [facility] 06-05-2025 History of Presen t illness Narrative BARIATRIC SURGERY CLINIC FOLLOW UP NOTE DISTANCE HEALTH VISIT This Team Access Model visit is a virtual encounter. It required patient-provider interaction for the medical decision making as documented below. Consent was obtained to complete today's distance health visit. I have communicated my name and active licensure. The patient's identity and physical location were verified at the time of this visit. Either the patient or their legal credit and collections representative has been informed of the risks and benefits of -- and alternatives to -- treatment through a remote evaluation and consents to proceed with the evaluation remotely. HPI: Poly Armando a 30 year old female is scheduled for Lap RYGB with Dr. Barrios on 06/23/2025. Denies recent illness, hospitalization, ED visits, medication changes. HISTORY REVIEWED (electronic chart updated): - medical history - medications - allergies PAST MEDICAL HISTORY Diagnosis Date Headaches History of echocardiogram 05/16/2022 EF 65%. Normal scan History of Holter monitoring 02/10/2022 The patient completed a 24-hour Holter monitor demonstrating underlying sinus rhythm. Heart rate ranging from 65 to 158. Average heart rate 93. No evidence of atrial fibrillation or PACs. One PVC was appreciated. History of tilt table evaluation 08/29/2024 The test is negative for syncope. The test is negative for syncope. Overall stable blood pressures and heart rates were seen during upright tilt. she just felt dizzy upon the standing but the BP and HR stable. orthostatic vitals negative NAFLD (nonalcoholic fatty liver disease) Prediabetes Seizure (HCC) Uterine fibroid Social: SOCIAL HISTORY[1] Medications: Current Outpatient Medications Medication Sig desvenlafaxine ER (PRISTIQ) 25 mg 24 hr tablet Take 1 tablet by mouth once daily. Combine with Lexapro x 30 days then D.C escitalopram oxalate (LEXAPRO) 20 mg tablet Take 1 tablet by mouth once daily. predniSONE (DELTASONE) 20 mg tablet Take three tablets daily for three days, then two tablets daily for three days, then one tablets daily for three days. metFORMIN (GLUCOPHAGE) 500 mg tablet Take 1 tablet by mouth two times a day with meals. modafinil (PROVIGIL) 200 mg tablet Take 1 tablet by mouth once daily for 180 days. propranolol ER (INDERAL LA) 160 mg Cs24 Take 1 capsule by mouth once daily. famotidine (PEPCID) 40 mg tablet Take 1 tablet by mouth once daily. No current facility-administered medications for this visit. REVIEW OF SYSTEMS General: No fatigue or fevers HEENT: Negative for frequent or significant headaches, No changes in hearing or vision, no nose bleeds or other nasal problems PAP Therapy: Not needed. GI:No nausea, vomiting, or diarrhea and No heartburn or reflux symptoms Muskuloskeletal: Negative for joint pain or swelling, back pain or muscle pain Skin: Negative for lesions, rash, and itching Psych: Negative for sleep disturbance, mood disorder and recent psychosocial stressors PHYSICAL EXAMINATION There were no vitals taken for this visit. There were no vitals taken for this visit. GENERAL APPEARANCE: Pleasant, interacts appropriately and in no apparent distress. Appropriately groomed, happy, smiling, and interactive SKIN: Skin of normal texture, temperature without rashes/lesions/ulcerations. LUNGS: unlabored on room air negative findings: normal respiratory rate no cough NEURO/PSYCH: Oriented to person, place, time; appropriate insight and judgement. Appropriate affect. The plan of treatment for Poly Armando is: Required monthly visits: 7 of 6 months Patient is interested in: RYGB EGD: 10/2024 - small hiatal hernia Pathology: Duodenum, biopsy: Duodenal mucosa with an intact villous architecture and intraepithelial lymphocytosis - can be associated with Losartan. Stomach, antrum, biopsy: Mild reactive gastropathy. No intestinal metaplasia or morphologic evidence of Helicobacter pylori organisms. Gastroesophageal junction, biopsy: Hyperplastic squamous esophageal mucosa with reactive epithelial changes and ulcer. No morphologic evidence of fungal organisms or viral cytopathic effect. Upper GI: defer to EGD RUQ US: 08/02/24 - hepatic steatosis HIDA: normal GB EF CT abd/pelvis (11/05/23): WNL aside from left renal stone Sleep Study: per pulmonology CXR: per pulmonology clearance EKG: per cardiac clearance H Pylori: negative Labs: complete - vit D def (repeat WNL) Nicotine use <12 months: No, negative Tox screen: Negative Antiplatelet/anticoagulants: No Immunosuppressive therapy: No Estrogen therapy: No Evaluations: Psychology: cleared Nutrition: cleared Education class: complete Clearances: -Cardiology (cleared; OV 01/15) -Pulmonology (cleared; OV 01/22) -PCP (low risk) Risk Calculator: VTE Risk: 0.16 - 0.25% ISS score: not diabetic Adverse Event score: NA Post-op Medications: Extended Lovenox: No Actigall: Yes - RX sent PPI: Yes - RX sent Tylenol: Yes - RX sent Zofran: Yes - RX sent ASSESSMENT/PLAN: 1. Class 3 severe obesity with serious comorbidity and body mass index (BMI) of 40.0 to 44.9 in adult, unspecified obesity type (HCC) - ICD9: 278.01, V85.41, ICD10: E66.813, Z68.41 - scheduled for Lap RYGB with Dr. Barrios on 06/23/2025. - COMPLETE BLOOD COUNT - TYPE AND SCREEN,30 DAY - BASIC METABOLIC PANEL - ALBUMIN - URSODIOL 300 MG CAPSULE - PANTOPRAZOLE 40 MG TABLET,DELAYED RELEASE - ACETAMINOPHEN 500 MG TABLET - ONDANSETRON HCL 4 MG TABLET Preoperative instructions discussed with the patient in detail. Discussed stopping all NSAIDs medication, herbal remedies, vitamins 7 days prior to surgery. Reviewed further medications to stop 1 day prior to surgery, medications to take the morning of surgery if applicable Discussed medications in detail, all questions were answered. Discharge instructions were discussed with the patient. We discussed symptoms and signs that warrant immediate medical attention (rare). We discussed signs and symptoms that warrant a phone call to the office. We discussed that some nausea is expected immediately after surgery, if unable to tolerate oral intake to please contact the office immediately. We discussed that some postoperative pain is expected, if he were to express severe abdominal pain please contact the office. Patient received extensive teaching regarding incision care, signs and symptoms of a surgical infection, and reviewed to contact the surgical team for any concerns regarding incisions. Confirmed completed patient education class prior to scheduled surgery. VLCD start: 06/09 PST appt: 06/16 1 week PO appt: 07/01 Patient verbally confirms the above information. This information was sent to the patient through a [employer] message as well. I spent a total of 30 minutes on the date of the service which included preparing to see the patient, [id number] patient care, completing clinical documentation, obtaining and/or reviewing separately obtained history, performing a medically appropriate examination, counseling and educating the patient/family/caregiver, ordering medications, tests, or procedures, and communicating results to the patient/family/caregiver. Vilma Rouse APRN.CNP Medical Decision Making: Problems: Moderate: 2+ stable chronic illnesses Data: Unique source(s) for external note(s) reviewed: 1 Unique test result(s) reviewed: 1 Unique test(s) ordered: 1 Assessment requiring an independent historian(s) Risk: Moderate: Drug management Medical Decision Making Level: 4 - Moderate [1] Social History Tobacco Use Smoking status: Never Smokeless tobacco: Never Vaping Use Vaping status: Never Used Substance Use Topics Alcohol use: Not Currently Drug use: Never documented in this encounter [facility] 06-05-2025 Note HNO ID: [id number] Author: VILMA ROUSE APRN.BRIT Service: ? Author Type: Nurse Practitioner Type: Progress Notes Filed: 06/05/2025 08:55 Note Text: BARIATRIC SURGERY CLINIC FOLLOW UP NOTE DISTANCE HEALTH VISIT This Team Access Model visit is a virtual encounter. It required patient-provider interaction for the medical decision making as documented below. Consent was obtained to complete today's distance health visit. I have communicated my name and active licensure. The patient's identity and physical location were verified at the time of this visit. Either the patient or their legal credit and collections representative has been informed of the risks and benefits of -- and alternatives to -- treatment through a remote evaluation and consents to proceed with the evaluation remotely. HPI: Poly Armando a 30 year old female is scheduled for Lap RYGB with Dr. Barrios on 06/23/2025. Denies recent illness, hospitalization, ED visits, medication changes. HISTORY REVIEWED (electronic chart updated): - medical history - medications - allergies PAST MEDICAL HISTORY Diagnosis Date - Headaches - History of echocardiogram 05/16/2022 EF 65%. Normal scan - History of Holter monitoring 02/10/2022 The patient completed a 24-hour Holter monitor demonstrating underlying sinus rhythm. Heart rate ranging from 65 to 158. Average heart rate 93. No evidence of atrial fibrillation or PACs. One PVC was appreciated. - History of tilt table evaluation 08/29/2024 The test is negative for syncope. The test is negative for syncope. Overall stable blood pressures and heart rates were seen during upright tilt. she just felt dizzy upon the standing but the BP and HR stable. orthostatic vitals negative - NAFLD (nonalcoholic fatty liver disease) - Prediabetes - Seizure (HCC) - Uterine fibroid Social: SOCIAL HISTORY[1] Medications: Current Outpatient Medications Medication Sig - desvenlafaxine ER (PRISTIQ) 25 mg 24 hr tablet Take 1 tablet by mouth once daily. Combine with Lexapro x 30 days then D.C - escitalopram oxalate (LEXAPRO) 20 mg tablet Take 1 tablet by mouth once daily. - predniSONE (DELTASONE) 20 mg tablet Take three tablets daily for three days, then two tablets daily for three days, then one tablets daily for three days. - metFORMIN (GLUCOPHAGE) 500 mg tablet Take 1 tablet by mouth two times a day with meals. - modafinil (PROVIGIL) 200 mg tablet Take 1 tablet by mouth once daily for 180 days. - propranolol ER (INDERAL LA) 160 mg Cs24 Take 1 capsule by mouth once daily. - famotidine (PEPCID) 40 mg tablet Take 1 tablet by mouth once daily. No current facility-administered medications for this visit. REVIEW OF SYSTEMS General: No fatigue or fevers HEENT: Negative for frequent or significant headaches, No changes in hearing or vision, no nose bleeds or other nasal problems PAP Therapy: Not needed. GI:No nausea, vomiting, or diarrhea and No heartburn or reflux symptoms Muskuloskeletal: Negative for joint pain or swelling, back pain or muscle pain Skin: Negative for lesions, rash, and itching Psych: Negative for sleep disturbance, mood disorder and recent psychosocial stressors PHYSICAL EXAMINATION There were no vitals taken for this visit. There were no vitals taken for this visit. GENERAL APPEARANCE: Pleasant, interacts appropriately and in no apparent distress. Appropriately groomed, happy, smiling, and interactive SKIN: Skin of normal texture, temperature without rashes/lesions/ulcerations. LUNGS: unlabored on room air negative findings: normal respiratory rate no cough NEURO/PSYCH: Oriented to person, place, time; appropriate insight and judgement. Appropriate affect. The plan of treatment for Poly Armando is: Required monthly visits: 7 of 6 months Patient is interested in: RYGB EGD: 10/2024 - small hiatal hernia Pathology: Duodenum, biopsy: Duodenal mucosa with an intact villous architecture and intraepithelial lymphocytosis - can be associated with Losartan. Stomach, antrum, biopsy: Mild reactive gastropathy. No intestinal metaplasia or morphologic evidence of Helicobacter pylori organisms. Gastroesophageal junction, biopsy: Hyperplastic squamous esophageal mucosa with reactive epithelial changes and ulcer. No morphologic evidence of fungal organisms or viral cytopathic effect. Upper GI: defer to EGD RUQ US: 08/02/24 - hepatic steatosis HIDA: normal GB EF CT abd/pelvis (11/05/23): WNL aside from left renal stone Sleep Study: per pulmonology CXR: per pulmonology clearance EKG: per cardiac clearance H Pylori: negative Labs: complete - vit D def (repeat WNL) Nicotine use <12 months: No, negative Tox screen: Negative Antiplatelet/anticoagulants: No Immunosuppressive therapy: No Estrogen therapy: No Evaluations: Psychology: cleared Nutrition: cleared Education class: complete Clearances: -Cardiology (cleared; OV 01/15) -Pulmonology (cleared; OV 01/22) (more content not included)... [facility] 05-27-2025 Note HNO ID: [id number] Author: VILMA ROUSE APRN.CNP Service: ? Author Type: Nurse Practitioner Type: Progress Notes Filed: 05/27/2025 09:01 Note Text: Date: May 27, 2025 DISTANCE HEALTH VISIT This Team Access Model visit is a virtual encounter conducted via an educational class in a group encounter. It is required patient-provider interaction for the medical decision making as documented below. Consent was obtained to complete today's distance health visit. Name: Poly Armando CHIEF COMPLAINT: This is a 30 year old female with morbid obesity who presents to clinic for bariatric surgery and is completing an educational class today. HISTORY OF PRESENTING ILLNESS: This individual is currently enrolled in the [facility] pursuing weight loss surgery and presents to complete preoperative requirements.Poly Armando has been seen monthly for medically supervised weight loss and is being evaluated on their lifestyle modifications. Denies any difficulty hearing presentation. Denies any difficulty visualizing educational materials PHYSICAL EXAM: General Appearance: Well appearing, alert, in no acute distress, well-hydrated, well nourished. IMPRESSION: Poly Armando is a 30 year old female with the following diagnosis and co-morbidities: Morbid (severe) obesity PLAN: Counseling and surgical care coordination was addressed during this educational class. Pathophysiology and side effects of surgery were discussed. Medications to be stopped 2 weeks and 1 week prior to surgery were discussed. Discharge instructions in terms of dietary restrictions, activity requirements, medications, follow-up were reviewed. Vitamins and supplements were reviewed with samples provided. Additionally, signs and symptoms of vitamin deficiencies reviewed. Postoperative medication management was explained. Received prevention education in terms of post operative problems and complications. Patient was educated on signs and symptoms requiring immediate and/or emergent medical attention. This patient also received dietary education. Patient was educated on incision care, signs of surgical site infection, and importance of contacting surgical team for incision concerns. Patient was educated on risk and should not get within two years after bariatric surgery (if applicable). could result in very poor weight loss and could be dangerous for the baby. This individual received an educational handouts reviewing the for mentioned class materials. At the end of class, Poly Armando was provided time to answer questions. Denies any further questions or concerns. The [facility] Patient agreement was reviewed and Poly Armando received a copy of the patient agreement. The patient is aware by receiving this agreement, this accepts their understanding of the agreement and that surgery may not be recommended for medical and behavorial health reasons. Total time of virtual encounter: 60 Vilma Rouse APRN.[facility] 05-27-2025 History of Presen t illness Narrative Date: May 27, 2025 DISTANCE HEALTH VISIT This Team Access Model visit is a virtual encounter conducted via an educational class in a group encounter. It is required patient-provider interaction for the medical decision making as documented below. Consent was obtained to complete today's distance health visit. Name: Poly Armando CHIEF COMPLAINT: This is a 30 year old female with morbid obesity who presents to clinic for bariatric surgery and is completing an educational class today. HISTORY OF PRESENTING ILLNESS: This individual is currently enrolled in the [facility] pursuing weight loss surgery and presents to complete preoperative requirements.Poly Armando has been seen monthly for medically supervised weight loss and is being evaluated on their lifestyle modifications. Denies any difficulty hearing presentation. Denies any difficulty visualizing educational materials PHYSICAL EXAM: General Appearance: Well appearing, alert, in no acute distress, well-hydrated, well nourished. IMPRESSION: Poly Armando is a 30 year old female with the following diagnosis and co-morbidities: Morbid (severe) obesity PLAN: Counseling and surgical care coordination was addressed during this educational class. Pathophysiology and side effects of surgery were discussed. Medications to be stopped 2 weeks and 1 week prior to surgery were discussed. Discharge instructions in terms of dietary restrictions, activity requirements, medications, follow-up were reviewed. Vitamins and supplements were reviewed with samples provided. Additionally, signs and symptoms of vitamin deficiencies reviewed. Postoperative medication management was explained. Received prevention education in terms of post operative problems and complications. Patient was educated on signs and symptoms requiring immediate and/or emergent medical attention. This patient also received dietary education. Patient was educated on incision care, signs of surgical site infection, and importance of contacting surgical team for incision concerns. Patient was educated on risk and should not get within two years after bariatric surgery (if applicable). could result in very poor weight loss and could be dangerous for the baby. This individual received an educational handouts reviewing the for mentioned class materials. At the end of class, Poly Armando was provided time to answer questions. Denies any further questions or concerns. The [facility] Patient agreement was reviewed and Poly Armando received a copy of the patient agreement. The patient is aware by receiving this agreement, this accepts their understanding of the agreement and that surgery may not be recommended for medical and behavorial health reasons. Total time of virtual encounter: 60 Vilma Rouse APRN.BRIT documented in this encounter [facility] 04-24-[address] - 04/24/2025 8:38 AM EDT Protein shakes allowed within 2 weeks prior to surgery: *must be caffeine free* 4.5 bottles of High Protein Slim Fast daily (20g protein, 1g sugar) (Flavor options: chocolate, strawberry, vanilla, orange) or 5.5 packets of Light Start [place] Instant Breakfast Drink Mix mixed with 5 1/2 cups of fat free or 1% milk daily -- must say light start on package (13g protein prepared) - chocolate flavor or 5 individual cartons of Atkins protein shakes (15g protein, 1g total sugar) daily (Flavor options: milk chocolate delight, creamy vanilla, dark chocolate, strawberry, cinnamon) or 4.5 bottles of Glucose Controlled Boost daily (16g protein, 1g carb) (Flavor options: chocolate, vanilla, strawberry) Please stick to the same protein shake you begin the day with, avoid interchanging them throughout the same day. Allowed clear liquids: Water Low sodium clear broth or bouillon (no bone broth) Plain gelatin (sugar free, NO fruit or topping) Decaffeinated Coffee or Tea (NO milk/creamer/sugar) Propel or Crystal Light beverages (sugar free) Popsicles (sugar free - no fruit bars) DAY BEFORE SURGERY - Liquid Diet It is important that you stay hydrated - 64 ounces of fluid per day. Please measure the amount of fluid you drink. Drink a 28-32 ounce bottle of a regular (not sugar free) sport drink (Gatorade, Powerade, etc.) OR 1 ensure clear the night prior to surgery. Last Protein shake and Ensure clear should be completed before 6pm. DAY OF SURGERY - Clear Liquid Diet Drink 12-20 ounces of a regular sport drink OR 1 ensure clear, stop liquids 2 hours before scheduled arrival time. When you are home (POST-OP) You are continuing to focus on protein shakes (of your choice) and acceptable clear fluids for the first two weeks after surgery until addressed/directed by Dietitian. Your daily protein goals still remain, women 60-90g/men 70-105g, do your best to reach 60/70g minimum via protein shakes - we recommend using 25-30g shakes to help reduce the amount you need to drink daily 2. Your fluid goals also remain the same in addition to the clear fluids you were allowed to have during the 2 week diet (broth, sugar free jello, popsicles, sugar free gatorade, water, decaf coffee/tea) --- 64 oz daily is your goal, each day you are home do your best with increasing the amount of oz per hour each day(day 1 - 4oz/hr, day 6 - 8oz/hr) 3. Begin your post-op vitamin regimen when you arrive home, make sure to follow the directions provided by the bariatric RD - please make sure to bring them with your to your first follow up appointment. Please let me know if you have any questions, Kaya Mcdaniels RD documented in this encounter [facility] 04-24-2025 History of Presen t illness Narrative Poly Armando This patient encounter was completed virtually due to COVID-19 (audio/visual) using a secure, HIPPA compliant video chat software program with the patient's consent. I have communicated my name and active licensure. The patients identity and physical location were verified at the time of this visit. Either the patient or their legal credit and collections representative has been informed of the risks and benefits of -- and alternatives to -- treatment through remote evaluation and consents to proceed with the evaluation remotely. Education Class: Patient will receive instruction regarding healthy food choices and eating behaviors identified as optimal when preparing for surgery, losing weight after surgery, and maintaining weight loss long-term. Patient will also receive instruction regarding the Bariatric Full Liquid diet following surgery and optimal post-operative high-protein supplement choices. Education class to be completed prior to surgery. Behaviors Accomplished: Visit # 6/ Date: 04/24/25 Today's Weight:247 lbs Behaviors that helped/hindered weight loss: helped Keeping journal daily Eating 3 meals/one snack Choose healthy foods Daily multivitamin Drink between meals Sip beverages slowly Eat slowly,chew well No high fat/fast foods D/c'd caffeinated, carbonated beverages Exercise: 150 min/week Written information provided and reviewed: Repeat group class information Tracking protein intake Tracking liquid intake Last 5 Encounter Wt Readings: Date: Wt: 04/16/2025 112.2 kg (247 lb 6.4 oz) 03/20/2025 112.2 kg (247 lb 7.5 oz) 03/05/2025 110.2 kg (243 lb) 03/05/2025 110.2 kg (243 lb) 02/27/2025 110.2 kg (242 lb 15.2 oz) Patient presents for buffer visit, all questions were answered during visit today. The patient meets NIH guidelines for weight loss surgery and has been thoroughly evaluated and educated on good dietary practices. Patient is capable of following these guidelines pre-and post-surgically. From nutrition standpoint, the patient is cleared for weight loss surgery. No additional visits with nutrition are required at this time; however, pt is welcome to return as needed/desired before or after surgery. *All requirements have been met. Additional requirements may arise in course of treatment. *THIS PATIENT RECEIVED INSTRUCTIONS FOR VLCD, ERAS AND POST-OP VITAMIN SCHEDULE WITH PLAN TO CONSENT W/ SURGEON AT FUTURE APPOINTMENT-WILL RECEIVE ENSURE CLEAR BEVERAGES AT CONSENT APPOINTMENT -VLCD, ERAS, post-op vitamin schedule--via [place] Plan: No RD follow up at this time Start time: 8:36 End time: 8:44 Total time spent in direct patient contact = 8 minutes. MNT Billing Type: Re-assess (Units: 1) Kaya Mcdaniels RD This note was generated using voice recognition technology and may contain grammatical errors. documented in this encounter [facility] 04-24-2025 Note HNO ID: [id number] Author: KAYA MCDANIELS RD Service: ? Author Type: Registered Dietitian Type: Progress Notes Filed: 04/24/2025 08:45 Note Text: Yusufkenisha Cardona Tr This patient encounter was completed virtually due to COVID-19 (audio/visual) using a secure, HIPPA compliant video chat software program with the patient's consent. I have communicated my name and active licensure. The patients identity and physical location were verified at the time of this visit. Either the patient or their legal credit and collections representative has been informed of the risks and benefits of -- and alternatives to -- treatment through remote evaluation and consents to proceed with the evaluation remotely. Education Class: Patient will receive instruction regarding healthy food choices and eating behaviors identified as optimal when preparing for surgery, losing weight after surgery, and maintaining weight loss long-term. Patient will also receive instruction regarding the Bariatric Full Liquid diet following surgery and optimal post-operative high-protein supplement choices. Education class to be completed prior to surgery. Behaviors Accomplished: Visit # 6 Date: 04/24/25 Today's Weight:247 lbs Behaviors that helped/hindered weight loss: helped Keeping journal daily Eating 3 meals/one snack Choose healthy foods Daily multivitamin Drink between meals Sip beverages slowly Eat slowly,chew well No high fat/fast foods D/c'd caffeinated, carbonated beverages Exercise: 150 min/week Written information provided and reviewed: Repeat group class information Tracking protein intake Tracking liquid intake Last 5 Encounter Wt Readings: Date: Wt: 04/16/2025 112.2 kg (247 lb 6.4 oz) 03/20/2025 112.2 kg (247 lb 7.5 oz) 03/05/2025 110.2 kg (243 lb) 03/05/2025 110.2 kg (243 lb) 02/27/2025 110.2 kg (242 lb 15.2 oz) Patient presents for buffer visit, all questions were answered during visit today. The patient meets NIH guidelines for weight loss surgery and has been thoroughly evaluated and educated on good dietary practices. Patient is capable of following these guidelines pre-and post-surgically. From nutrition standpoint, the patient is cleared for weight loss surgery. No additional visits with nutrition are required at this time; however, pt is welcome to return as needed/desired before or after surgery. *All requirements have been met. Additional requirements may arise in course of treatment. *THIS PATIENT RECEIVED INSTRUCTIONS FOR VLCD, ERAS AND POST-OP VITAMIN SCHEDULE WITH PLAN TO CONSENT W/ SURGEON AT FUTURE APPOINTMENT-WILL RECEIVE ENSURE CLEAR BEVERAGES AT CONSENT APPOINTMENT -VLCD, ERAS, post-op vitamin schedule--via [employer] Plan: No RD follow up at this time Start time: 8:36 End time: 8:44 Total time spent in direct patient contact = 8 minutes. MNT Billing Type: Re-assess (Units: 1) Kaya Mcdaniels RD This note was generated using voice recognition technology and may contain grammatical errors. [facility] 04-17-2025 Note HNO ID: [id number] Author: ?, ?, ? Service: ? Author Type: ? Type: Progress Notes Filed: 04/17/2025 10:06 Note Text: Laparoscopic, robotic-assisted, possible open, joan en y gastric bypass with upper endoscopy and bilateral TAP blocks. Possible: hiatal hernia repair with biologic mesh placement and blood transfusion [facility] 04-17-2025 History of Presen t illness Narrative Laparoscopic, robotic-assisted, possible open, joan en y gastric bypass with upper endoscopy and bilateral TAP blocks. Possible: hiatal hernia repair with biologic mesh placement and blood transfusion documented in this encounter [facility] 04-16-2025 Telephone encounter Note Medical clearance letter sent/faxed to Wilson Burks APRN.CNP. Roverto Jones RN, BSN Bariatric Form Stripper [facility] 04-16-2025 Miscellaneous Notes Medical clearance letter sent/faxed to Wilson Burks APRN.CNP. Roverto Jones RN, BSN Bariatric Form Stripper documented in this encounter [facility] 04-16-2025 Note HNO ID: [id number] Author: ROVERTO JONES RN Service: ? Author Type: Registered Nurse Type: Progress Notes Filed: 04/16/2025 16:15 Note Text: Consent visit education discussed with patient including : pre-op diet, CPAP instructions, expectations post-op, nausea and pain medication instructions, post-op ambulation and IS use, and post-op artem phase I AND II diets. All questions answered and information packet given to patient. Patient given Ensure Clears x 2 and Hibiclens pre-op soap and instructed on how/when to use. Roverto Jones RN, BSN Bariatric Form Stripper [facility] 04-16-2025 History of Presen t illness Narrative Consent visit education discussed with patient including : pre-op diet, CPAP instructions, expectations post-op, nausea and pain medication instructions, post-op ambulation and IS use, and post-op artem phase I & II diets. All questions answered and information packet given to patient. Patient given Ensure Clears x 2 and Hibiclens pre-op soap and instructed on how/when to use. Roverto Jones RN, BSN Bariatric Form Stripper BARIATRIC SURGERY NEW PATIENT CONSULTATION HISTORY AND PHYSICAL Date: April 16, 2025 Time: 3:41 PM Poly Armando is a 29 year old year old female with obesity (Body mass index is 43.82 kg/m .), NAFLD, pre-diabetes (metformin), HTN (Propranolol), tachycardia, GERD, depression and anxiety (pristiq), seizures (last 2018; no meds), hidradenitis suppurativa who presents to the clinic today for consideration of bariatric surgery. Today she reports doing well. She did have an episode of severe hives a few weeks ago for which she required steroids. She understands that in the future, after RYGB, she will not be able to have steroids. She has completed the bariatric program and presents today to consent. Her weight today is 247 pounds, which is down from her previous weight of 252 pounds. Per my last clinic note: She endorses a long history of GERD symptoms - starting during her second . She has symptoms sometimes when drinking only water. She takes Tums, OTC Zantac, and was recently started on Pepcid 40 mg daily - she feels this medication is helping her symptoms. She occasionally uses NSAIDs - not even 3 times per month She denies any personal history of DVT/PE, SC/CAD, TIA/CVA. She was diagnosed with pre-diabetes about 2 years ago and has been Metformin since that time. She started experiencing abdominal pain and gastritis-like symptoms along with bloating. She noticed that she was passing whole pills. She underwent many exams and workup, including EGD. Pathology was noted to demonstrate intraepithelial lymphocytes, which can be secondary to Losartan use. She was therefore changed from Losartan to Propranolol. She has daily episodes of dizziness for which she has undergone workup for vertigo. She states that workup demonstrated no cause of her symptoms. She does admit to not drinking enough fluids during the day. Social: denies x 3; denies SHS exposure PSHx: x 3; TL PAST MEDICAL HISTORY Diagnosis Date Headaches History of echocardiogram 05/16/2022 EF 65%. Normal scan History of Holter monitoring 02/10/2022 The patient completed a 24-hour Holter monitor demonstrating underlying sinus rhythm. Heart rate ranging from 65 to 158. Average heart rate 93. No evidence of atrial fibrillation or PACs. One PVC was appreciated. History of tilt table evaluation 08/29/2024 The test is negative for syncope. The test is negative for syncope. Overall stable blood pressures and heart rates were seen during upright tilt. she just felt dizzy upon the standing but the BP and HR stable. orthostatic vitals negative NAFLD (nonalcoholic fatty liver disease) Prediabetes Seizure (HCC) Uterine fibroid PAST SURGICAL HISTORY Procedure Laterality Date ANESTH, SECTION 2012,2014,2016 LIGATE FALLOPIAN TUBE FAMILY HISTORY Problem Relation Age of Onset DVT Mother Hypertension Mother Hypertension Father Diabetes Father Cancer Son Colon Cancer Maternal Aunt Social History Tobacco Use Smoking status: Never Smokeless tobacco: Never Vaping Use Vaping status: Never Used Substance Use Topics Alcohol use: Not Currently Drug use: Never Current Outpatient Medications Medication Sig desvenlafaxine ER (PRISTIQ) 25 mg 24 hr tablet Take 1 tablet by mouth once daily. Combine with Lexapro x 30 days then D.C escitalopram oxalate (LEXAPRO) 20 mg tablet Take 1 tablet by mouth once daily. predniSONE (DELTASONE) 20 mg tablet Take three tablets daily for three days, then two tablets daily for three days, then one tablets daily for three days. metFORMIN (GLUCOPHAGE) 500 mg tablet Take 1 tablet by mouth two times a day with meals. modafinil (PROVIGIL) 200 mg tablet Take 1 tablet by mouth once daily for 180 days. propranolol ER (INDERAL LA) 160 mg Cs24 Take 1 capsule by mouth once daily. famotidine (PEPCID) 40 mg tablet Take 1 tablet by mouth once daily. No current facility-administered medications for this visit. ALLERGIES Allergen Reactions Lisinopril Intolerance Tape [Adhesive Tape* Rash Review of Systems Constitutional: Negative for chills, diaphoresis, fever and malaise/fatigue. HENT: Negative for congestion, hearing loss, nosebleeds, sinus pain, sore throat and tinnitus. Eyes: Negative for blurred vision, double vision, pain and redness. Respiratory: Negative for cough, hemoptysis, sputum production, shortness of breath and wheezing. Cardiovascular: Negative for chest pain, palpitations, orthopnea, leg swelling and PND. Gastrointestinal: Positive for heartburn. Negative for abdominal pain, blood in stool, constipation, diarrhea, nausea and vomiting. Genitourinary: Negative for dysuria, frequency, hematuria and urgency. Musculoskeletal: Negative for back pain, falls, joint pain, myalgias and neck pain. Skin: Negative for itching and rash. Neurological: Negative for dizziness, speech change, focal weakness, seizures, loss of consciousness, weakness and headaches. Endo/Heme/Allergies: Does not bruise/bleed easily. Psychiatric/Behavioral: Positive for depression. Negative for hallucinations, memory loss, substance abuse and suicidal ideas. The patient is nervous/anxious. The patient does not have insomnia. Physical Exam Vitals reviewed. Constitutional: Appearance: Normal appearance. She is obese. HENT: Head: Normocephalic and atraumatic. Nose: Nose normal. Eyes: General: No scleral icterus. Extraocular Movements: Extraocular movements intact. Conjunctiva/sclera: Conjunctivae normal. Pupils: Pupils are equal, round, and reactive to light. Cardiovascular: Rate and Rhythm: Normal rate. Pulmonary: Effort: Pulmonary effort is normal. No respiratory distress. Neurological: General: No focal deficit present. Mental Status: She is alert and oriented to person, place, and time. Psychiatric: Mood and Affect: Mood normal. Behavior: Behavior normal. Required monthly visits: 5 of 6 months Patient is interested in: RYGB EGD: 10/2024 - small hiatal hernia Pathology: Duodenum, biopsy: Duodenal mucosa with an intact villous architecture and intraepithelial lymphocytosis - can be associated with Losartan. Stomach, antrum, biopsy: Mild reactive gastropathy. No intestinal metaplasia or morphologic evidence of Helicobacter pylori organisms. Gastroesophageal junction, biopsy: Hyperplastic squamous esophageal mucosa with reactive epithelial changes and ulcer. No morphologic evidence of fungal organisms or viral cytopathic effect. Upper GI: defer to EGD RUQ US: 08/02/24 - hepatic steatosis HIDA: normal GB EF CT abd/pelvis (11/05/23): WNL aside from left renal stone Sleep Study: per pulmonology CXR: per pulmonology clearance EKG: per cardiac clearance H Pylori: negative Labs: complete - vit D def (repeat ordered) Nicotine use <12 months: No, negative Tox screen: Negative Antiplatelet/anticoagulants: No Immunosuppressive therapy: No Estrogen therapy: No Evaluations: Psychology: cleared Nutrition: cleared Education class: ongoing Clearances: -Cardiology (cleared; OV 01/15) -Pulmonology (cleared; OV 01/22) -PCP Risk Calculator: VTE Risk: 0.16 - 0.25% ISS score: not diabetic Adverse Event score: NA Post-op Medications: Extended Lovenox: No Actigall: Yes PPI: Yes Tylenol: Yes Zofran: Yes Plan IMPRESSION: Poly Armando is a 29 year old year old female who presents for consideration of bariatric surgery (Body mass index is 43.82 kg/m .). She does meet the criteria for a surgical weight loss procedure according to NIH guidelines. The plan of treatment for Poly is to continue with the consultations and tests ordered today in hopes of qualifying for pre-operative clearance for bariatric surgery. She is interested in: Joan-En-Y Gastric Bypass ASSESSMENT/PLAN: 1. Class 3 severe obesity with serious comorbidity and body mass index (BMI) of 40.0 to 44.9 in adult, unspecified obesity type (HCC) - ICD9: 278.01, V85.41, ICD10: E66.813, Z68.41 (primary diagnosis) - Today in clinic we reviewed the potential risks and complications associated with RYGB. We reviewed both the informed consent form and the risk education packet. All of the patient's questions and concerns were addressed to the best of my ability. I specifically discussed with the patient my concerns of the risk of marginal ulcer formation with exposure to ulcerogenic substances. I encouraged the patient to reach out via phone call or Linguee message if any questions or concerns were to arise between now and the day of surgery. - They are not vaccinated against COVID. They were also advised to inform our office if they were to contract COVID between now and the day of surgery as this could potentially increase their risk of DVT and PE and they may require prolonged VTE prophylaxis after surgery. - We have extensively discussed the risks associated with bariatric surgery including but not limited to postoperative bleeding, infection, deep vein thrombosis, pulmonary embolism, dehydration/vitamin deficiency/malnutrition, pneumonia, myocardial infarction, marginal ulceration, and bowel obstruction. - CONSULT TO PRE-SURGICAL TESTING (AG) - H&P FOR SURGERY - COMPLETE BLOOD COUNT - TYPE AND SCREEN,30 DAY - BASIC METABOLIC PANEL - ALBUMIN 2. NAFLD (nonalcoholic fatty liver disease) - ICD9: 571.8, ICD10: K76.0 - Continue healthy lifestyle and dietary modification. 3. Hiatal hernia - ICD9: 553.3, ICD10: K44.9 - On review of EGD she appears to have a Hill Grade 3 GE junction. Will repair at the time of surgery if hiatal hernia is present. 4. Pre-diabetes - ICD9: 790.29, ICD10: R73.03 - Well controlled. Continue current medical management 5. Hypertension, unspecified type - ICD9: 401.9, ICD10: I10 - Well controlled. Continue current medical management 6. Gastroesophageal reflux disease without esophagitis - ICD9: 530.81, ICD10: K21.9 - Discussed lifestyle modifications including losing weight, limiting caffeine, no meals three hours before sleep, and head of bed elevation - Continue treatment with Pepcid 40 mg once daily 7. Anxiety and depression - ICD9: 300.00, 311, ICD10: F41.9, F32.A - Well controlled. Continue current medical management Nutrition Counseling Practice these: - Eat 3 meals daily--can use approved/recommended protein shake as 1 meal replacement (should be <200 calories, 20-30g protein, <5g added sugar) - Keep a food journal 5-7x/week (consider POI or OPE [employer] sandrine) and demonstrate meeting protein goal (60-90g protein for females, 70-105g protein for males)- Lean meats, fish, low fat dairy - cottage cheese, Portuguese yogurt, light yogurt, cheese, ricotta cheese, nuts, peanut butter, beans/legumes. Eat protein first at all meals. and 64oz of caffeine-free, carbonation-free fluids at least 5 days per week - engage in formal, planned exercise 5x/week for 30 minutes of cardiovascular activity OR 150+ minutes of cardiovascular activity per week - eliminate all caffeine, carbonation, alcohol and sugar-containing beverages from diet --consider sugar-free drink mixes, water, decaf coffee and tea - Separate eating and drinking by 30 minutes - Chew your food 20-30x per bite - Sip beverages slowly--no guzzling or gulping Information regarding probable and potential postoperative complications, dietary and medical postoperative limitations, and potential cosmetic sequelae has been received by individual. Ebony Barrios MD Advanced Laparoscopic and Bariatric Surgery Medical Decision Making: Problems: Moderate: 2+ stable chronic illnesses Data: Unique test result(s) reviewed: 3+ Unique test(s) ordered: 3+ Discussed management or test w/ external physician/QHCP/source Risk: Moderate: Drug management and Moderate risk from testing/treatment High: Decision on elective major surgery w/ risk factors Medical Decision Making Level: 5 - High Required monthly visits: 5 of 6 months Patient is interested in: RYGB EGD: 10/2024 - small hiatal hernia Pathology: Duodenum, biopsy: Duodenal mucosa with an intact villous architecture and intraepithelial lymphocytosis - can be associated with Losartan. Stomach, antrum, biopsy: Mild reactive gastropathy. No intestinal metaplasia or morphologic evidence of Helicobacter pylori organisms. Gastroesophageal junction, biopsy: Hyperplastic squamous esophageal mucosa with reactive epithelial changes and ulcer. No morphologic evidence of fungal organisms or viral cytopathic effect. Upper GI: defer to EGD RUQ US: 08/02/24 - hepatic steatosis HIDA: normal GB EF CT abd/pelvis (11/05/23): WNL aside from left renal stone Sleep Study: per pulmonology CXR: per pulmonology clearance EKG: per cardiac clearance H Pylori: negative Labs: complete - vit D def (repeat ordered) Nicotine use <12 months: No, negative Tox screen: Negative Antiplatelet/anticoagulants: No Immunosuppressive therapy: No Estrogen therapy: No Evaluations: Psychology: cleared Nutrition: cleared Education class: ongoing Clearances: -Cardiology (cleared; OV 01/15) -Pulmonology (cleared; OV 01/22) -PCP Risk Calculator: VTE Risk: 0.16 - 0.25% ISS score: not diabetic Adverse Event score: NA Post-op Medications: Extended Lovenox: No Actigall: Yes PPI: Yes Tylenol: Yes Zofran: Yes PST orders placed Codie Greene APRN.BOOM MASTER documented in this encounter [facility] 04-16-2025 Note HNO ID: [id number] Author: EBONY BARRIOS MD Service: ? Author Type: Physician Type: Progress Notes Filed: 04/16/2025 15:58 Note Text: BARIATRIC SURGERY NEW PATIENT CONSULTATION HISTORY AND PHYSICAL Date: April 16, 2025 Time: 3:41 PM Poly Armando is a 29 year old year old female with obesity (Body mass index is 43.82 kg/m?.), NAFLD, pre-diabetes (metformin), HTN (Propranolol), tachycardia, GERD, depression and anxiety (pristiq), seizures (last 2018; no meds), hidradenitis suppurativa who presents to the clinic today for consideration of bariatric surgery. Today she reports doing well. She did have an episode of severe hives a few weeks ago for which she required steroids. She understands that in the future, after RYGB, she will not be able to have steroids. She has completed the bariatric program and presents today to consent. Her weight today is 247 pounds, which is down from her previous weight of 252 pounds. Per my last clinic note: She endorses a long history of GERD symptoms - starting during her second . She has symptoms sometimes when drinking only water. She takes Tums, OTC Zantac, and was recently started on Pepcid 40 mg daily - she feels this medication is helping her symptoms. She occasionally uses NSAIDs - not even 3 times per month She denies any personal history of DVT/PE, SC/CAD, TIA/CVA. She was diagnosed with pre-diabetes about 2 years ago and has been Metformin since that time. She started experiencing abdominal pain and gastritis-like symptoms along with bloating. She noticed that she was passing whole pills. She underwent many exams and workup, including EGD. Pathology was noted to demonstrate intraepithelial lymphocytes, which can be secondary to Losartan use. She was therefore changed from Losartan to Propranolol. She has daily episodes of dizziness for which she has undergone workup for vertigo. She states that workup demonstrated no cause of her symptoms. She does admit to not drinking enough fluids during the day. Social: denies x 3; denies SHS exposure PSHx: x 3; TL PAST MEDICAL HISTORY Diagnosis Date Headaches History of echocardiogram 05/16/2022 EF 65%. Normal scan History of Holter monitoring 02/10/2022 The patient completed a 24-hour Holter monitor demonstrating underlying sinus rhythm. Heart rate ranging from 65 to 158. Average heart rate 93. No evidence of atrial fibrillation or PACs. One PVC was appreciated. History of tilt table evaluation 08/29/2024 The test is negative for syncope. The test is negative for syncope. Overall stable blood pressures and heart rates were seen during upright tilt. she just felt dizzy upon the standing but the BP and HR stable. orthostatic vitals negative NAFLD (nonalcoholic fatty liver disease) Prediabetes Seizure (HCC) Uterine fibroid PAST SURGICAL HISTORY Procedure Laterality Date ANESTH, SECTION 2012,2014,2016 LIGATE FALLOPIAN TUBE FAMILY HISTORY Problem Relation Age of Onset DVT Mother Hypertension Mother Hypertension Father Diabetes Father Cancer Son Colon Cancer Maternal Aunt Social History Tobacco Use Smoking status: Never Smokeless tobacco: Never Vaping Use Vaping status: Never Used Substance Use Topics Alcohol use: Not Currently Drug use: Never Current Outpatient Medications Medication Sig desvenlafaxine ER (PRISTIQ) 25 mg 24 hr tablet Take 1 tablet by mouth once daily. Combine with Lexapro x 30 days then D.C escitalopram oxalate (LEXAPRO) 20 mg tablet Take 1 tablet by mouth once daily. predniSONE (DELTASONE) 20 mg tablet Take three tablets daily for three days, then two tablets daily for three days, then one tablets daily for three days. metFORMIN (GLUCOPHAGE) 500 mg tablet Take 1 tablet by mouth two times a day with meals. modafinil (PROVIGIL) 200 mg tablet Take 1 tablet by mouth once daily for 180 days. propranolol ER (INDERAL LA) 160 mg Cs24 Take 1 capsule by mouth once daily. famotidine (PEPCID) 40 mg tablet Take 1 tablet by mouth once daily. No current facility-administered medications for this visit. ALLERGIES Allergen Reactions Lisinopril Intolerance Tape [Adhesive Tape* Rash Review of Systems Constitutional: Negative for chills, diaphoresis, fever and malaise/fatigue. HENT: Negative for congestion, hearing loss, nosebleeds, sinus pain, sore throat and tinnitus. Eyes: Negative for blurred vision, double vision, pain and redness. Respiratory: Negative for cough, hemoptysis, sputum production, shortness of breath and wheezing. Cardiovascular: Negative for chest pain, palpitations, orthopnea, leg swelling and PND. Gastrointestinal: Positive for heartburn. Negative for abdominal pain, blood in stool, constipation, diarrhea, nausea and vomiting. Genitourinary: Negative for dysuria, frequency, hematuria and urgency. Musculoskeletal: Negative for back pain, falls, joint pain, (more content not included)... [facility] 04-16-2025 Note HNO ID: [id number] Author: CODIE GREENE APRN.BOOM MASTER Service: ? Author Type: Nurse Practitioner Type: Progress Notes Filed: 04/16/2025 15:58 Note Text: Required monthly visits: 5 of 6 months Patient is interested in: RYGB EGD: 10/2024 - small hiatal hernia Pathology: Duodenum, biopsy: Duodenal mucosa with an intact villous architecture and intraepithelial lymphocytosis - can be associated with Losartan. Stomach, antrum, biopsy: Mild reactive gastropathy. No intestinal metaplasia or morphologic evidence of Helicobacter pylori organisms. Gastroesophageal junction, biopsy: Hyperplastic squamous esophageal mucosa with reactive epithelial changes and ulcer. No morphologic evidence of fungal organisms or viral cytopathic effect. Upper GI: defer to EGD RUQ US: 08/02/24 - hepatic steatosis HIDA: normal GB EF CT abd/pelvis (11/05/23): WNL aside from left renal stone Sleep Study: per pulmonology CXR: per pulmonology clearance EKG: per cardiac clearance H Pylori: negative Labs: complete - vit D def (repeat ordered) Nicotine use <12 months: No, negative Tox screen: Negative Antiplatelet/anticoagulants: No Immunosuppressive therapy: No Estrogen therapy: No Evaluations: Psychology: cleared Nutrition: cleared Education class: ongoing Clearances: -Cardiology (cleared; OV 01/15) -Pulmonology (cleared; OV 01/22) -PCP Risk Calculator: VTE Risk: 0.16 - 0.25% ISS score: not diabetic Adverse Event score: NA Post-op Medications: Extended Lovenox: No Actigall: Yes PPI: Yes Tylenol: Yes Zofran: Yes PST orders placed Codie Greene APRN.BRIT [facility] 04-14-2025 Telephone encounter Note Lvm for pt to c/b. Pt is only month 5 out of 6. Will allow the consent with Dr. Barrios for Month 5 but will HAVE to have a VV with RD on April 24 in order to submit to insurance and start the packet for the approval process. [facility] 04-14-2025 Miscellaneous Notes Lvm for pt to c/b. Pt is only month 5 out of 6. Will allow the consent with Dr. Barrios for Month 5 but will HAVE to have a VV with RD on April 24 in order to submit to insurance and start the packet for the approval process. documented in this encounter [facility] 04-02-2025 Telephone encounter Note Called to schedule new patient appointment, lvdeana Haile April 02, 2025 11:50 AM [facility] 04-02-2025 Miscellaneous Notes Called to schedule new patient appointment, kishor Haile April 02, 2025 11:50 AM documented in this encounter [facility] 03-26-2025 Note HNO ID: [id number] Author: CHRISTINA BRAMBILA APRN.BRIT Service: ? Author Type: Nurse Practitioner Type: Progress Notes Filed: 03/26/2025 09:41 Note Text: HPI: Poly Armando is a 29 year old female who presents for an initial evaluation. She has never been to a psychiatric provider before and was recommended for treatment by her bariatric provider. Her PCP started her on a medication a couple of years ago. First treated for depression in after her son was diagnosed with Leukemia. Mood is depressed. More days than not she is feeling sad and having loss of interest. Motivation is non-existent. She struggles keeping up with basic responsibilities. Sleep is hit or miss. She has trouble falling asleep. She has trouble shutting down her mind. She sleeps about 5-6 hours at night. She needs more sleep. She naps every day; she will nap 2 hours a day. She feels it is a need at this point. Appetite is normal. No wish for or active plans to end her life. [place] SUICIDE SEVERITY RATING SCALE 1.) Wish to be : Have you wished you were or wished you could go to sleep and not wake up? NO 2.) Suicidal Thoughts: Have you actually had any thoughts of killing yourself? NO 6.) Suicide Behavior Question: Have you ever done anything, started to do anything, or prepared to do anything to end your life?NO Considers herself a worrier. Difficulty controlling the worry. Difficulty falling asleep at night. Focus and concentration is difficult at times. No restlessness. She has had panic attacks. They are triggered by an event. No panic disorder. No OCD. Bariatric has her diagnosed with an unspecified eating disorder. No PTSD. No evidence of park or hypomania. No psychosis. Treated fro Narcolepsy in the past. Did not do well on stimulants. On Provigil for possible narcolepsy. Biggest stressors, none. No eating disorder that she is aware. Bariatric program diagnosed with unspecified eating disorder. Past Psychiatric History: No inpatient psychiatric. No suicide attempts. No para suicide ideation. No therapist. Pristiq. On for a couple of years. No Lexapro. Zoloft. Quit working. On x a couple years. Wellbutrin. She had seizures. Cannot recall. Lamictal. Started having absence seizures. Started at age 18 and sporadically over the years. Provigil. She is having trouble staying awake during the day. No Effexor. No Cymbalta. Substance Use History: No nicotine. No alcohol. No illicit drug use. Current Substance Use: No nicotine. No alcohol. No illicit drug use. PAST MEDICAL HISTORY Diagnosis Date Headaches History of echocardiogram 05/16/2022 EF 65%. Normal scan History of Holter monitoring 02/10/2022 The patient completed a 24-hour Holter monitor demonstrating underlying sinus rhythm. Heart rate ranging from 65 to 158. Average heart rate 93. No evidence of atrial fibrillation or PACs. One PVC was appreciated. History of tilt table evaluation 08/29/2024 The test is negative for syncope. The test is negative for syncope. Overall stable blood pressures and heart rates were seen during upright tilt. she just felt dizzy upon the standing but the BP and HR stable. orthostatic vitals negative NAFLD (nonalcoholic fatty liver disease) Prediabetes Seizure (HCC) Uterine fibroid ALLERGIES Allergen Reactions Lisinopril Intolerance Tape [Adhesive Tape* Rash predniSONE (DELTASONE) 20 mg tablet Take three tablets daily for three days, then two tablets daily for three days, then one tablets daily for three days. metFORMIN (GLUCOPHAGE) 500 mg tablet Take 1 tablet by mouth two times a day with meals. modafinil (PROVIGIL) 200 mg tablet Take 1 tablet by mouth once daily for 180 days. propranolol ER (INDERAL LA) 160 mg Cs24 Take 1 capsule by mouth once daily. famotidine (PEPCID) 40 mg tablet Take 1 tablet by mouth once daily. desvenlafaxine ER (PRISTIQ) 100 mg 24 hr tablet Take 1 tablet by mouth once daily. Family Medical/Psychiatric History: FAMILY HISTORY Problem Relation Age of Onset DVT Mother Hypertension Mother Hypertension Father Diabetes Father Cancer Son Colon Cancer Maternal Aunt Mother. Depression and anxiety. Developmental/Social History: Social History Tobacco Use Smoking status: Never Smokeless tobacco: Never Vaping Use Vaping status: Never Used Substance Use Topics Alcohol use: Not Currently Drug use: Never Born and raised in [place], [place]. Raised by biological parents. Childhood was good, no abuse. She has three siblings; she is the youngest. Graduated high school in . No college. x 10 years. She has three sons. 11,9, and 7. She works part-time at [employer]. She loves her job. Legal History: None. Mental Status Evaluation: General Observations Appearance:Casually groomed Demeanor:Cooperative Activity:Normal Eye Contact:Good Speech Rate:Normal Volume:Normal Articula (more content not included)... [facility] 03-26-2025 History of Presen t illness Narrative HPI: Poly Armando is a 29 year old female who presents for an initial evaluation. She has never been to a psychiatric provider before and was recommended for treatment by her bariatric provider. Her PCP started her on a medication a couple of years ago. First treated for depression in after her son was diagnosed with Leukemia. Mood is depressed. More days than not she is feeling sad and having loss of interest. Motivation is non-existent. She struggles keeping up with basic responsibilities. Sleep is hit or miss. She has trouble falling asleep. She has trouble shutting down her mind. She sleeps about 5-6 hours at night. She needs more sleep. She naps every day; she will nap 2 hours a day. She feels it is a need at this point. Appetite is normal. No wish for or active plans to end her life. [place] SUICIDE SEVERITY RATING SCALE 1.) Wish to be : Have you wished you were or wished you could go to sleep and not wake up? NO 2.) Suicidal Thoughts: Have you actually had any thoughts of killing yourself? NO 6.) Suicide Behavior Question: Have you ever done anything, started to do anything, or prepared to do anything to end your life?NO Considers herself a worrier. Difficulty controlling the worry. Difficulty falling asleep at night. Focus and concentration is difficult at times. No restlessness. She has had panic attacks. They are triggered by an event. No panic disorder. No OCD. Bariatric has her diagnosed with an unspecified eating disorder. No PTSD. No evidence of park or hypomania. No psychosis. Treated fro Narcolepsy in the past. Did not do well on stimulants. On Provigil for possible narcolepsy. Biggest stressors, none. No eating disorder that she is aware. Bariatric program diagnosed with unspecified eating disorder. Past Psychiatric History: No inpatient psychiatric. No suicide attempts. No para suicide ideation. No therapist. Pristiq. On for a couple of years. No Lexapro. Zoloft. Quit working. On x a couple years. Wellbutrin. She had seizures. Cannot recall. Lamictal. Started having absence seizures. Started at age 18 and sporadically over the years. Provigil. She is having trouble staying awake during the day. No Effexor. No Cymbalta. Substance Use History: No nicotine. No alcohol. No illicit drug use. Current Substance Use: No nicotine. No alcohol. No illicit drug use. PAST MEDICAL HISTORY Diagnosis Date Headaches History of echocardiogram 05/16/2022 EF 65%. Normal scan History of Holter monitoring 02/10/2022 The patient completed a 24-hour Holter monitor demonstrating underlying sinus rhythm. Heart rate ranging from 65 to 158. Average heart rate 93. No evidence of atrial fibrillation or PACs. One PVC was appreciated. History of tilt table evaluation 08/29/2024 The test is negative for syncope. The test is negative for syncope. Overall stable blood pressures and heart rates were seen during upright tilt. she just felt dizzy upon the standing but the BP and HR stable. orthostatic vitals negative NAFLD (nonalcoholic fatty liver disease) Prediabetes Seizure (HCC) Uterine fibroid ALLERGIES Allergen Reactions Lisinopril Intolerance Tape [Adhesive Tape* Rash predniSONE (DELTASONE) 20 mg tablet Take three tablets daily for three days, then two tablets daily for three days, then one tablets daily for three days. metFORMIN (GLUCOPHAGE) 500 mg tablet Take 1 tablet by mouth two times a day with meals. modafinil (PROVIGIL) 200 mg tablet Take 1 tablet by mouth once daily for 180 days. propranolol ER (INDERAL LA) 160 mg Cs24 Take 1 capsule by mouth once daily. famotidine (PEPCID) 40 mg tablet Take 1 tablet by mouth once daily. desvenlafaxine ER (PRISTIQ) 100 mg 24 hr tablet Take 1 tablet by mouth once daily. Family Medical/Psychiatric History: FAMILY HISTORY Problem Relation Age of Onset DVT Mother Hypertension Mother Hypertension Father Diabetes Father Cancer Son Colon Cancer Maternal Aunt Mother. Depression and anxiety. Developmental/Social History: Social History Tobacco Use Smoking status: Never Smokeless tobacco: Never Vaping Use Vaping status: Never Used Substance Use Topics Alcohol use: Not Currently Drug use: Never Born and raised in [place], [place]. Raised by biological parents. Childhood was good, no abuse. She has three siblings; she is the youngest. Graduated high school in . No college. x 10 years. She has three sons. 11,9, and 7. She works part-time at [employer]. She loves her job. Legal History: None. Mental Status Evaluation: General Observations Appearance:Casually groomed Demeanor:Cooperative Activity:Normal Eye Contact:Good Speech Rate:Normal Volume:Normal Articulation:Clear Coherent: Yes Spontaneous:Yes Language Naming: Repetition: Mood & Affect Depression:Moderate Anxiety:Moderate Anger:None Anhedonia;Moderate Euphoria:None Affect:Flexible Associations:Logical Process:Normal Knowledge: Average Delusion: No Hallucination: No Suicidal Ideation:No suicidal ideation, intent or plan. Homicidal Ideation:No homicidal ideation, intent or plan. Judgement::Automatic Insight:Intellectual Orientation:Person, Place, Time and Situation Gait and Station:Steady Muscle Strength & Tone: Muscle:Normal Strength:Normal Tone: Strong See AIMS form 3 or > Vital Signs: LMP 02/26/2025 (Exact Date) Memory:Intact Attention:Good Concentration:Good Review Of Systems Neurological: Sleep: 4-5. Naps x 2 hours daily Headache: No Weakness:No Stiffness: No Tremor:No Gastrointestinal: Appetite:Good Nausea: No Bowel movements:normal Skin rash: No Other : Diagnosis: AXIS I: F41.1 F33.0 AXIS II : AXIS III: AXIS IV: AXIS V: Condition: Inadequately controlled Medication: Current Outpatient Medications Medication Sig predniSONE (DELTASONE) 20 mg tablet Take three tablets daily for three days, then two tablets daily for three days, then one tablets daily for three days. metFORMIN (GLUCOPHAGE) 500 mg tablet Take 1 tablet by mouth two times a day with meals. modafinil (PROVIGIL) 200 mg tablet Take 1 tablet by mouth once daily for 180 days. propranolol ER (INDERAL LA) 160 mg Cs24 Take 1 capsule by mouth once daily. famotidine (PEPCID) 40 mg tablet Take 1 tablet by mouth once daily. desvenlafaxine ER (PRISTIQ) 100 mg 24 hr tablet Take 1 tablet by mouth once daily. No current facility-administered medications for this visit. Therapy/ Treatment Plan: Provided support. Continue regimen with change. Taper Pristiq 50mg x 10 days then 25mg x 10 days then D.C Add Lexparo 20mg 1/2 tab while tapering off Pristiq then 1 tab po daily. MDD ROBERT She is on Provigil for a possible sleep disorder. Plan discussed including risks, benefits, and side effects of medications (ongoing discussion) and patient agreeable to plan, Follow-up: 6 weeks. 05.08. @ 9:00 am Christina Brambila APRN.BOOM MASTER documented in this encounter [facility] 03-23-2025 Telephone encounter Note Lyme test is negative. Thanks [facility] Work Phone: 03-23-2025 Miscellaneous Notes Lyme test is negative. Thanks documented in this encounter [facility] 03-20-2025 Note HNO ID: [id number] Author: SHELLI HAQUE PSYD Service: ? Author Type: Psychologist Type: Progress Notes Filed: 03/20/2025 13:49 Note Text: [facility] Follow-Up Visit [facility] Progress Note March 20, 2025 CPT Code: 59163 Time: <16 minutes This is a virtual visit using Linguee video visit. It required patient-provider interaction for the medical decision making as documented below. I have communicated my name and active licensure. The patient's identity and physical location were verified at the time of this visit. Either the patient or their legal credit and collections representative has been informed of the risks and benefits of -- and alternatives to -- treatment through a remote evaluation and consents to proceed with the evaluation remotely. Summary of Session: Prior to the session, the current sql report writer verified the patient had been cleared by nutrition, including meeting exercise requirements. The patient verified they are continuing their bariatric diet and exercise post nutrition clearance. Assessed boredom eating and the patient stated that had improved as she was keeping busy a lot. Reviewed MMPI-3 results which were consistent with the patient's stated report at the time of the clinical interview. The patient expressed understanding and didn't have additional questions. Assessed for any changes in mood or new/worsening stressors and the patient denied both. Assessed the patient's perceived readiness for surgery, and the patient expressed confidence in the preparedness for the procedure. Addressed post operative expectations and encouraged the patient to reach out to their team to address any concerns that may arise during their recovery. Patient mood is: calm. Affect is: Appropriate. Patient Data Binge Eating Scale (BES) 01/20/2025 Eating Habits Checklist Total Score 4 Patient-reported <18 = minimal binge eating, 18-26 = moderate binge eating, >27 = severe binge eating Generalized Anxiety Disorder Scale (ROBERT-7) 01/20/2025 02/26/2025 03/18/2025 ROBERT - 7 SCORES Score 4 3 4 (0-4) minimal anxiety, (5-9) mild anxiety, (10-14) moderate anxiety, (15-21) severe anxiety Patient Health Questionnaire (PHQ-9) 01/20/2025 02/26/2025 03/18/2025 PHQ-9 Score 5 1 4 (0-4) minimal depression, (5-9) mild depression, (10-14) moderate depression, (15-19) moderately severe depression, (20-27) severe depression Diagnosis: Eating disorder, unspecified type (primary encounter diagnosis) Anxiety Mdd (major depressive disorder), recurrent episode, mild Current Medications: Current Outpatient Medications Medication Sig predniSONE (DELTASONE) 20 mg tablet Take three tablets daily for three days, then two tablets daily for three days, then one tablets daily for three days. metFORMIN (GLUCOPHAGE) 500 mg tablet Take 1 tablet by mouth two times a day with meals. modafinil (PROVIGIL) 200 mg tablet Take 1 tablet by mouth once daily for 180 days. propranolol ER (INDERAL LA) 160 mg Cs24 Take 1 capsule by mouth once daily. famotidine (PEPCID) 40 mg tablet Take 1 tablet by mouth once daily. desvenlafaxine ER (PRISTIQ) 100 mg 24 hr tablet Take 1 tablet by mouth once daily. No current facility-administered medications for this visit. Treatment Modality: Follow up on bariatric psychology evaluation Plan/Recommendations: The patient was advised she was cleared for surgery, she was further advised she was welcome to make additional appointments with bariatric psychology as needed. Follow Up: GELACIO Haque PSYD Clinical Psychologist Bariatrics [facility] 03-20-2025 History of Presen t illness Narrative Images from the original note were not included. [facility] Follow-Up Visit [facility] Progress Note March 20, 2025 CPT Code: 19266 Time: <16 minutes This is a virtual visit using Linguee video visit. It required patient-provider interaction for the medical decision making as documented below. I have communicated my name and active licensure. The patient's identity and physical location were verified at the time of this visit. Either the patient or their legal credit and collections representative has been informed of the risks and benefits of -- and alternatives to -- treatment through a remote evaluation and consents to proceed with the evaluation remotely. Summary of Session: Prior to the session, the current sql report writer verified the patient had been cleared by nutrition, including meeting exercise requirements. The patient verified they are continuing their bariatric diet and exercise post nutrition clearance. Assessed boredom eating and the patient stated that had improved as she was keeping busy a lot. Reviewed MMPI-3 results which were consistent with the patient's stated report at the time of the clinical interview. The patient expressed understanding and didn't have additional questions. Assessed for any changes in mood or new/worsening stressors and the patient denied both. Assessed the patient's perceived readiness for surgery, and the patient expressed confidence in the preparedness for the procedure. Addressed post operative expectations and encouraged the patient to reach out to their team to address any concerns that may arise during their recovery. Patient mood is: calm. Affect is: Appropriate. Patient Data Binge Eating Scale (BES) 01/20/2025 Eating Habits Checklist Total Score 4 Patient-reported <18 = minimal binge eating, 18-26 = moderate binge eating, >27 = severe binge eating Generalized Anxiety Disorder Scale (ROBERT-7) 01/20/2025 02/26/2025 03/18/2025 ROBERT - 7 SCORES Score 4 3 4 (0-4) minimal anxiety, (5-9) mild anxiety, (10-14) moderate anxiety, (15-21) severe anxiety Patient Health Questionnaire (PHQ-9) 01/20/2025 02/26/2025 03/18/2025 PHQ-9 Score 5 1 4 (0-4) minimal depression, (5-9) mild depression, (10-14) moderate depression, (15-19) moderately severe depression, (20-27) severe depression Diagnosis: Eating disorder, unspecified type (primary encounter diagnosis) Anxiety Mdd (major depressive disorder), recurrent episode, mild Current Medications: Current Outpatient Medications Medication Sig predniSONE (DELTASONE) 20 mg tablet Take three tablets daily for three days, then two tablets daily for three days, then one tablets daily for three days. metFORMIN (GLUCOPHAGE) 500 mg tablet Take 1 tablet by mouth two times a day with meals. modafinil (PROVIGIL) 200 mg tablet Take 1 tablet by mouth once daily for 180 days. propranolol ER (INDERAL LA) 160 mg Cs24 Take 1 capsule by mouth once daily. famotidine (PEPCID) 40 mg tablet Take 1 tablet by mouth once daily. desvenlafaxine ER (PRISTIQ) 100 mg 24 hr tablet Take 1 tablet by mouth once daily. No current facility-administered medications for this visit. Treatment Modality: Follow up on bariatric psychology evaluation Plan/Recommendations: The patient was advised she was cleared for surgery, she was further advised she was welcome to make additional appointments with bariatric psychology as needed. Follow Up: GELACIO Haque PSYD Clinical Psychologist Bariatrics documented in this encounter [facility] 03-20-2025 Note HNO ID: [id number] Author: DUC HOPKINS MLT Service: ? Author Type: ? Type: Progress Notes Filed: 03/20/2025 13:36 Note Text: Venipuncture performed to left antecubital. Number of tubes collected: 1 gold. [facility] 03-20-2025 History of Presen t illness Narrative Venipuncture performed to left antecubital. Number of tubes collected: 1 gold. Tolerated well 29 year old female presents with rash generalized for the past 3 day(s) that is gradually worsening. The patients reports no new exposures. The rash is described as itchy. Also adds she had a tick embedded in her left thigh. Voices she removed completely. Voices it was not engorged. Has tried various OTC medication without relief. OBJECTIVE:Rash PAST MEDICAL HISTORY Diagnosis Date Headaches History of echocardiogram 05/16/2022 EF 65%. Normal scan History of Holter monitoring 02/10/2022 The patient completed a 24-hour Holter monitor demonstrating underlying sinus rhythm. Heart rate ranging from 65 to 158. Average heart rate 93. No evidence of atrial fibrillation or PACs. One PVC was appreciated. History of tilt table evaluation 08/29/2024 The test is negative for syncope. The test is negative for syncope. Overall stable blood pressures and heart rates were seen during upright tilt. she just felt dizzy upon the standing but the BP and HR stable. orthostatic vitals negative NAFLD (nonalcoholic fatty liver disease) Prediabetes Seizure (HCC) Uterine fibroid Current Outpatient Medications Medication Sig Dispense Refill metFORMIN (GLUCOPHAGE) 500 mg tablet Take 1 tablet by mouth two times a day with meals. 60 tablet 2 modafinil (PROVIGIL) 200 mg tablet Take 1 tablet by mouth once daily for 180 days. 30 tablet 5 propranolol ER (INDERAL LA) 160 mg Cs24 Take 1 capsule by mouth once daily. 90 capsule 2 famotidine (PEPCID) 40 mg tablet Take 1 tablet by mouth once daily. 90 tablet 2 desvenlafaxine ER (PRISTIQ) 100 mg 24 hr tablet Take 1 tablet by mouth once daily. 90 tablet 1 No current facility-administered medications for this visit. Immunization History Administered Date(s) Administered influenza (IIV4) vaccine, age 6 mo - 64 yr, quadrivalent (AFLURIA, FLULAVAL, FLUZONE) 10/14/2021 influenza (IIV4) vaccine, age 6 mo - 64 yr, quadrivalent, PF (AFLURIA, FLUARIX, FLULAVAL, FLUZONE) 10/14/2021 Lisinopril and Tape [Adhesive Tape (Rosins)] Physical Exam Vitals reviewed. Constitutional: General: She is not in acute distress. Appearance: Normal appearance. She is well-developed. She is not ill-appearing, toxic-appearing or diaphoretic. HENT: Head: Normocephalic and atraumatic. Right Ear: External ear normal. Left Ear: External ear normal. Nose: Nose normal. Mouth/Throat: Mouth: Mucous membranes are moist. Eyes: General: No scleral icterus. Right eye: No discharge. Left eye: No discharge. Extraocular Movements: Extraocular movements intact. Conjunctiva/sclera: Conjunctivae normal. Cardiovascular: Rate and Rhythm: Regular rhythm. Pulmonary: Effort: Pulmonary effort is normal. No respiratory distress. Abdominal: General: Abdomen is flat. Musculoskeletal: Cervical back: Normal range of motion. Comments: Normal gait Skin: General: Skin is warm and dry. Comments: Scattered blotchy red rash, generalized. Neurological: General: No focal deficit present. Mental Status: She is alert and oriented to person, place, and time. Cranial Nerves: No cranial nerve deficit. Psychiatric: Mood and Affect: Mood normal. Behavior: Behavior normal. Thought Content: Thought content normal. Judgment: Judgment normal. ASSESSMENT/PLAN: 1. Hives - ICD9: 708.9, ICD10: L50.9 (primary diagnosis) - Likely viral or allergic etiology discussed with patient - Treatment with systemic steriods taper- see orders - Follow up if symptoms persist or worsen. - PREDNISONE 20 MG TABLET 2. Tick bite, unspecified site, initial encounter - ICD9: 919.4, E906.4, ICD10: W57.XXXA - Negative for erythema migrans, fatigue, myalgias, etc. - Will order testing to be safe. - LYME AB EARLY <=30 DAY SYMPTOMS AUBREE Michael APRN.CNP documented in this encounter [facility] 03-20-2025 Instructions Petr Mandujano APRN.CNP - 03/20/2025 1:25 PM EDT ASSESSMENT/PLAN: 1. Hives - ICD9: 708.9, ICD10: L50.9 (primary diagnosis) - Likely viral or allergic etiology discussed with patient - Treatment with systemic steriods taper- see orders - Follow up if symptoms persist or worsen. - PREDNISONE 20 MG TABLET 2. Tick bite, unspecified site, initial encounter - ICD9: 919.4, E906.4, ICD10: W57.XXXA - Negative for erythema migrans, fatigue, myalgias, etc. - Will order testing to be safe. - LYME AB EARLY <=30 DAY SYMPTOMS Petr Mandujano APRN.BRIT documented in this encounter [facility] 03-20-2025 Note HNO ID: [id number] Author: PETR MANDUJANO APRN.BRIT Service: ? Author Type: Nurse Practitioner Type: Progress Notes Filed: 03/20/2025 13:25 Note Text: 29 year old female presents with rash generalized for the past 3 day(s) that is gradually worsening. The patients reports no new exposures. The rash is described as itchy. Also adds she had a tick embedded in her left thigh. Voices she removed completely. Voices it was not engorged. Has tried various OTC medication without relief. OBJECTIVE:Rash PAST MEDICAL HISTORY Diagnosis Date Headaches History of echocardiogram 05/16/2022 EF 65%. Normal scan History of Holter monitoring 02/10/2022 The patient completed a 24-hour Holter monitor demonstrating underlying sinus rhythm. Heart rate ranging from 65 to 158. Average heart rate 93. No evidence of atrial fibrillation or PACs. One PVC was appreciated. History of tilt table evaluation 08/29/2024 The test is negative for syncope. The test is negative for syncope. Overall stable blood pressures and heart rates were seen during upright tilt. she just felt dizzy upon the standing but the BP and HR stable. orthostatic vitals negative NAFLD (nonalcoholic fatty liver disease) Prediabetes Seizure (HCC) Uterine fibroid Current Outpatient Medications Medication Sig Dispense Refill metFORMIN (GLUCOPHAGE) 500 mg tablet Take 1 tablet by mouth two times a day with meals. 60 tablet 2 modafinil (PROVIGIL) 200 mg tablet Take 1 tablet by mouth once daily for 180 days. 30 tablet 5 propranolol ER (INDERAL LA) 160 mg Cs24 Take 1 capsule by mouth once daily. 90 capsule 2 famotidine (PEPCID) 40 mg tablet Take 1 tablet by mouth once daily. 90 tablet 2 desvenlafaxine ER (PRISTIQ) 100 mg 24 hr tablet Take 1 tablet by mouth once daily. 90 tablet 1 No current facility-administered medications for this visit. Immunization History Administered Date(s) Administered influenza (IIV4) vaccine, age 6 mo - 64 yr, quadrivalent (AFLURIA, FLULAVAL, FLUZONE) 10/14/2021 influenza (IIV4) vaccine, age 6 mo - 64 yr, quadrivalent, PF (AFLURIA, FLUARIX, FLULAVAL, FLUZONE) 10/14/2021 Lisinopril and Tape [Adhesive Tape (Rosins)] Physical Exam Vitals reviewed. Constitutional: General: She is not in acute distress. Appearance: Normal appearance. She is well-developed. She is not ill-appearing, toxic-appearing or diaphoretic. HENT: Head: Normocephalic and atraumatic. Right Ear: External ear normal. Left Ear: External ear normal. Nose: Nose normal. Mouth/Throat: Mouth: Mucous membranes are moist. Eyes: General: No scleral icterus. Right eye: No discharge. Left eye: No discharge. Extraocular Movements: Extraocular movements intact. Conjunctiva/sclera: Conjunctivae normal. Cardiovascular: Rate and Rhythm: Regular rhythm. Pulmonary: Effort: Pulmonary effort is normal. No respiratory distress. Abdominal: General: Abdomen is flat. Musculoskeletal: Cervical back: Normal range of motion. Comments: Normal gait Skin: General: Skin is warm and dry. Comments: Scattered blotchy red rash, generalized. Neurological: General: No focal deficit present. Mental Status: She is alert and oriented to person, place, and time. Cranial Nerves: No cranial nerve deficit. Psychiatric: Mood and Affect: Mood normal. Behavior: Behavior normal. Thought Content: Thought content normal. Judgment: Judgment normal. ASSESSMENT/PLAN: 1. Hives - ICD9: 708.9, ICD10: L50.9 (primary diagnosis) - Likely viral or allergic etiology discussed with patient - Treatment with systemic steriods taper- see orders - Follow up if symptoms persist or worsen. - PREDNISONE 20 MG TABLET 2. Tick bite, unspecified site, initial encounter - ICD9: 919.4, E906.4, ICD10: W57.XXXA - Negative for erythema migrans, fatigue, myalgias, etc. - Will order testing to be safe. - LYME AB EARLY <=30 DAY SYMPTOMS Petr Mandujano APRN.BRIT Mandujano APRN.BRIT [facility] 03-05-2025 History of Presen t illness Narrative Poly Armando Education Class: Patient will receive instruction regarding healthy food choices and eating behaviors identified as optimal when preparing for surgery, losing weight after surgery, and maintaining weight loss long-term. Patient will also receive instruction regarding the Bariatric Full Liquid diet following surgery and optimal post-operative high-protein supplement choices. Education class to be completed prior to surgery. Behaviors Accomplished: Visit # 4 Date: 03/05/2025 Weight: 110.2 kg (243 lb) Keeping journal daily Eating 3 meals/one snack Choose healthy foods Daily multivitamin No high fat/fast foods D/c'd caffeinated, carbonated beverages 24 hour diet recall Breakfast: proteins sylevster Lunch: chicken/zucchini Dinner: pizza Snacks: -- Fluids (liquid intake-oz): yesterday: 72 oz Protein (grams/day): yesterday: 76 g Fluid intake (oz/day) over the last 7 days: 2 days ago: 64 oz 3 days ago: 72 oz 4 days ago: -- 5 days ago: 64 oz 6 days ago:72 oz 7 days ago: 72 oz Protein intake (grams/day) over the last 7 days: 2 days ago: 77 g 3 days ago: 70 g 4 days ago: -- 5 days ago: 62 g 6 days ago: 70 g 7 days ago: 95 g Alcohol/Caffeine/Sugar/Sweetener /Carbonation Beverages in Diet: Carbonation: none Caffeine: none Sugar: none Sweeteners: none Alcohol: none 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 Written information provided and reviewed: As noted Preop patient a month #4. Over the last month, she has been able to successfully reduce eating out to once per week, or less. Is consistently maintaining a food journal and is meeting protein or fluid goals. She is no longer getting to the gym due to school being out. However, she has been able to hand picker additional exercise such as yard work and also coaching. Encouraged her to take walks while at work to continue with exercise. Nutrition clearance was obtained at today's visit. Will require 45 mg of iron per day postop. The patient meets NIH guidelines for weight loss surgery and has been thoroughly evaluated and educated on good dietary practices. Patient is capable of following these guidelines pre-and post-surgically. From nutrition standpoint, the patient is cleared for weight loss surgery. No additional visits with nutrition are required at this time; however, pt is welcome to return as needed/desired before or after surgery. *All requirements have been met. Additional requirements may arise in course of treatment. *THIS PATIENT RECEIVED INSTRUCTIONS FOR VLCD, ERAS AND POST-OP VITAMIN SCHEDULE WITH PLAN TO CONSENT W/ SURGEON AT FUTURE APPOINTMENT-WILL RECEIVE ENSURE CLEAR BEVERAGES AT CONSENT APPOINTMENT -VLCD, ERAS, post-op vitamin schedule--via [employer]alt[employer] Plan: no appointment- cleared. Total time in direct patient contact = [address] This note was generated using voice recognition technology and may contain grammatical errors. documented in this encounter [facility] 03-05-2025 Note HNO ID: [id number] Author: ALLISON MELCHOR RD Service: ? Author Type: Registered Dietitian Type: Progress Notes Filed: 03/05/2025 09:50 Note Text: Poly Armando Education Class: Patient will receive instruction regarding healthy food choices and eating behaviors identified as optimal when preparing for surgery, losing weight after surgery, and maintaining weight loss long-term. Patient will also receive instruction regarding the Bariatric Full Liquid diet following surgery and optimal post-operative high-protein supplement choices. Education class to be completed prior to surgery. Behaviors Accomplished: Visit # 4 Date: 03/05/2025 Weight: 110.2 kg (243 lb) Keeping journal daily Eating 3 meals/one snack Choose healthy foods Daily multivitamin No high fat/fast foods D/c'd caffeinated, carbonated beverages 24 hour diet recall Breakfast: proteins sylvester Lunch: chicken/zucchini Dinner: pizza Snacks: -- Fluids (liquid intake-oz): yesterday: 72 oz Protein (grams/day): yesterday: 76 g Fluid intake (oz/day) over the last 7 days: 2 days ago: 64 oz 3 days ago: 72 oz 4 days ago: -- 5 days ago: 64 oz 6 days ago:72 oz 7 days ago: 72 oz Protein intake (grams/day) over the last 7 days: 2 days ago: 77 g 3 days ago: 70 g 4 days ago: -- 5 days ago: 62 g 6 days ago: 70 g 7 days ago: 95 g Alcohol/Caffeine/Sugar/Sweetener /Carbonation Beverages in Diet: Carbonation: none Caffeine: none Sugar: none Sweeteners: none Alcohol: none 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 Written information provided and reviewed: As noted Preop patient a month #4. Over the last month, she has been able to successfully reduce eating out to once per week, or less. Is consistently maintaining a food journal and is meeting protein or fluid goals. She is no longer getting to the gym due to school being out. However, she has been able to hand picker additional exercise such as yard work and also coaching. Encouraged her to take walks while at work to continue with exercise. Nutrition clearance was obtained at today's visit. Will require 45 mg of iron per day postop. The patient meets NIH guidelines for weight loss surgery and has been thoroughly evaluated and educated on good dietary practices. Patient is capable of following these guidelines pre-and post-surgically. From nutrition standpoint, the patient is cleared for weight loss surgery. No additional visits with nutrition are required at this time; however, pt is welcome to return as needed/desired before or after surgery. *All requirements have been met. Additional requirements may arise in course of treatment. *THIS PATIENT RECEIVED INSTRUCTIONS FOR VLCD, ERAS AND POST-OP VITAMIN SCHEDULE WITH PLAN TO CONSENT W/ SURGEON AT FUTURE APPOINTMENT-WILL RECEIVE ENSURE CLEAR BEVERAGES AT CONSENT APPOINTMENT -VLCD, ERAS, post-op vitamin schedule--via Talt[employer] Plan: no appointment- cleared. Total time in direct patient contact = [address] This note was generated using voice recognition technology and may contain grammatical errors. [facility] 03-05-2025 Note Education (AGGENS4) POLY ARMANDO ([id number]) 1995 F Date Time Provider Department 03/05/25 10:00 AM ALLISON MELCHOR Reason for Visit: Established Patient [175] Primary Visit Diagnosis:Dietary counseling and surveillance [Z71.3] During your visit today, we recorded the following information about you: Weight Height 110.2 kg 1.6 m Allergies As of Date: 03/05/2025 Noted Allergy Reaction LISINOPRIL 01/20/2022 5 - Intolerance TAPE (ADHESIVE TAPE (ROSINS)) 08/14/2024 2 - Rash Date Reviewed: 03/05/2025 Reviewed by: Vilma Rouse APRN.BOOM MASTER - Fully Assessed Prescriptions as of 03/05/2025 - metFORMIN (GLUCOPHAGE) 500 mg tablet Take 1 tablet by mouth two times a day with meals. - modafinil (PROVIGIL) 200 mg tablet Take 1 tablet by mouth once daily for 180 days. - propranolol ER (INDERAL LA) 160 mg Cs24 Take 1 capsule by mouth once daily. - famotidine (PEPCID) 40 mg tablet Take 1 tablet by mouth once daily. - desvenlafaxine ER (PRISTIQ) 100 mg 24 hr tablet Take 1 tablet by mouth once daily. Follow-up and Disposition History for Encounter Date Provider Department Center 03/05/2025 [id number] [facility] Encounter Status:Closed by ALLISON MELCHOR on 03/05/25 [facility] 03-05-2025 Note HNO ID: [id number] Author: VILMA ROUSE APRN.BRIT Service: ? Author Type: Nurse Practitioner Type: Progress Notes Filed: 03/05/2025 10:33 Note Text: [address], [facility] [address] [place] [id number] [facility] FOLLOW UP NOTE Recording using 8th Story software for draft documentation of the visit was discussed with the patient/authorized credit and collections representative; all questions welcomed and answered. Patient/authorized credit and collections representative agreed to proceed. HPI: Poly Armando a 29 year old female presents for medically supervised weight loss treatment of her obesity related co morbidities. This individual presents for month 4 of 6 required visits. Poly Armando weight has decreased since first visit in the program. Poly has been cleared for bariatric surgery by cardiology and pulmonology, with the final clearance pending from psychiatry. She is awaiting an appointment with Dr. Haque. Poly has been taking a multivitamin and an additional 5,000 IU of vitamin D daily for the past month to address a borderline vitamin D deficiency. She inquires about the role of vitamin D in bone health and mentions that she spends a significant amount of time outdoors. She is concerned about the upcoming departure of her primary care physician, who is leaving the practice this month to pursue a career in endocrinology. She has an appointment with a new primary care physician scheduled for August, but is uncertain about obtaining the necessary pre-surgical clearance in the interim. 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 Poly plans to take approximately 1.5 weeks off work following surgery, citing financial constraints and the lack of vacation benefits as factors limiting her ability to take extended leave. HISTORY REVIEWED (electronic chart updated): - medical history - medications - allergies PAST MEDICAL HISTORY Diagnosis Date - Headaches - History of echocardiogram 05/16/2022 EF 65%. Normal scan - History of Holter monitoring 02/10/2022 The patient completed a 24-hour Holter monitor demonstrating underlying sinus rhythm. Heart rate ranging from 65 to 158. Average heart rate 93. No evidence of atrial fibrillation or PACs. One PVC was appreciated. - History of tilt table evaluation 08/29/2024 The test is negative for syncope. The test is negative for syncope. Overall stable blood pressures and heart rates were seen during upright tilt. she just felt dizzy upon the standing but the BP and HR stable. orthostatic vitals negative - NAFLD (nonalcoholic fatty liver disease) - Prediabetes - Seizure (HCC) - Uterine fibroid Social: Social History Tobacco Use - Smoking status: Never - Smokeless tobacco: Never Vaping Use - Vaping status: Never Used Substance Use Topics - Alcohol use: Not Currently - Drug use: Never Medications: Current Outpatient Medications Medication Sig - metFORMIN (GLUCOPHAGE) 500 mg tablet Take 1 tablet by mouth two times a day with meals. - modafinil (PROVIGIL) 200 mg tablet Take 1 tablet by mouth once daily for 180 days. - propranolol ER (INDERAL LA) 160 mg Cs24 Take 1 capsule by mouth once daily. - famotidine (PEPCID) 40 mg tablet Take 1 tablet by mouth once daily. - desvenlafaxine ER (PRISTIQ) 100 mg 24 hr tablet Take 1 tablet by mouth once daily. No current facility-administered medications for this visit. REVIEW OF SYSTEMS Review of Systems Constitutional: Positive for weight loss. Negative for chills, fever and malaise/fatigue. HENT: Negative. Eyes: Negative. Respiratory: Negative for cough and shortness of breath. Cardiovascular: Negative for chest pain, palpitations and leg swelling. Gastrointestinal: Negative for abdominal pain, blood in stool, constipation, diarrhea, heartburn, melena, nausea and vomiting. Genitourinary: Negative. Musculoskeletal: Negative for myalgias. Skin: Negative. Neurological: Negative for dizziness and headaches. Psychiatric/Behavioral: Negative. PHYSICAL EXAMINATION BP 120/76 Pulse 67 Ht 160 cm (5' 3) Wt 110.2 kg (243 lb) LMP 02/26/2025 (Exact Date) SpO2 99% BMI 43.05 kg/m? Physical Exam Vitals reviewed. Constitutional: General: She is not in acute distress. Appearance: Normal appearance. She is obese. She is not ill-appearing or toxic-appearing. Pulmonary: Effort: Pulmonary effort is normal. Abdominal: Comments: Obese Musculoskeletal: General: Normal range of motion. Cervical back: Normal range of motion. Skin: General: Skin is warm and dry. Neurological: Mental Status: She i (more content not included)... [facility] 03-05-2025 History of Presen t illness Narrative Images from the original note were not included. [facility] [address], [address] Floor [place] [id number] BAR[facility]ATR[facility] SURGERY CLINIC FOLLOW UP NOTE Recording using 8th Story software for draft documentation of the visit was discussed with the patient/authorized credit and collections representative; all questions welcomed and answered. Patient/authorized credit and collections representative agreed to proceed. HPI: Poly cardona 29 year old female presents for medically supervised weight loss treatment of her obesity related co morbidities. This individual presents for month 4 of 6 required visits. Poly Armando weight has decreased since first visit in the program. Poly has been cleared for bariatric surgery by cardiology and pulmonology, with the final clearance pending from psychiatry. She is awaiting an appointment with Dr. Haque. Poly has been taking a multivitamin and an additional 5,000 IU of vitamin D daily for the past month to address a borderline vitamin D deficiency. She inquires about the role of vitamin D in bone health and mentions that she spends a significant amount of time outdoors. She is concerned about the upcoming departure of her primary care physician, who is leaving the practice this month to pursue a career in endocrinology. She has an appointment with a new primary care physician scheduled for August, but is uncertain about obtaining the necessary pre-surgical clearance in the interim. 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 Poly plans to take approximately 1.5 weeks off work following surgery, citing financial constraints and the lack of vacation benefits as factors limiting her ability to take extended leave. HISTORY REVIEWED (electronic chart updated): - medical history - medications - allergies PAST MEDICAL HISTORY Diagnosis Date Headaches History of echocardiogram 05/16/2022 EF 65%. Normal scan History of Holter monitoring 02/10/2022 The patient completed a 24-hour Holter monitor demonstrating underlying sinus rhythm. Heart rate ranging from 65 to 158. Average heart rate 93. No evidence of atrial fibrillation or PACs. One PVC was appreciated. History of tilt table evaluation 08/29/2024 The test is negative for syncope. The test is negative for syncope. Overall stable blood pressures and heart rates were seen during upright tilt. she just felt dizzy upon the standing but the BP and HR stable. orthostatic vitals negative NAFLD (nonalcoholic fatty liver disease) Prediabetes Seizure (HCC) Uterine fibroid Social: Social History Tobacco Use Smoking status: Never Smokeless tobacco: Never Vaping Use Vaping status: Never Used Substance Use Topics Alcohol use: Not Currently Drug use: Never Medications: Current Outpatient Medications Medication Sig metFORMIN (GLUCOPHAGE) 500 mg tablet Take 1 tablet by mouth two times a day with meals. modafinil (PROVIGIL) 200 mg tablet Take 1 tablet by mouth once daily for 180 days. propranolol ER (INDERAL LA) 160 mg Cs24 Take 1 capsule by mouth once daily. famotidine (PEPCID) 40 mg tablet Take 1 tablet by mouth once daily. desvenlafaxine ER (PRISTIQ) 100 mg 24 hr tablet Take 1 tablet by mouth once daily. No current facility-administered medications for this visit. REVIEW OF SYSTEMS Review of Systems Constitutional: Positive for weight loss. Negative for chills, fever and malaise/fatigue. HENT: Negative. Eyes: Negative. Respiratory: Negative for cough and shortness of breath. Cardiovascular: Negative for chest pain, palpitations and leg swelling. Gastrointestinal: Negative for abdominal pain, blood in stool, constipation, diarrhea, heartburn, melena, nausea and vomiting. Genitourinary: Negative. Musculoskeletal: Negative for myalgias. Skin: Negative. Neurological: Negative for dizziness and headaches. Psychiatric/Behavioral: Negative. PHYSICAL EXAMINATION BP 120/76 Pulse 67 Ht 160 cm (5' 3) Wt 110.2 kg (243 lb) LMP 02/26/2025 (Exact Date) SpO2 99% BMI 43.05 kg/m Physical Exam Vitals reviewed. Constitutional: General: She is not in acute distress. Appearance: Normal appearance. She is obese. She is not ill-appearing or toxic-appearing. Pulmonary: Effort: Pulmonary effort is normal. Abdominal: Comments: Obese Musculoskeletal: General: Normal range of motion. Cervical back: Normal range of motion. Skin: General: Skin is warm and dry. Neurological: Mental Status: She is alert. Psychiatric: Mood and Affect: Mood normal. Behavior: Behavior normal. Diagnostic Tests Reviewed for Today's Visit Most recent lab and imaging results The plan of treatment for Poly Armando is: Further Work-up: Required monthly visits: 4 of 6 months Patient is interested in: RYGB EGD: 10/2024 - small hiatal hernia Pathology: Duodenum, biopsy: Duodenal mucosa with an intact villous architecture and intraepithelial lymphocytosis - can be associated with Losartan. Stomach, antrum, biopsy: Mild reactive gastropathy. No intestinal metaplasia or morphologic evidence of Helicobacter pylori organisms. Gastroesophageal junction, biopsy: Hyperplastic squamous esophageal mucosa with reactive epithelial changes and ulcer. No morphologic evidence of fungal organisms or viral cytopathic effect. Upper GI: defer to EGD RUQ US: 08/02/24 - hepatic steatosis HIDA: normal GB EF CT abd/pelvis (11/05/23): WNL aside from left renal stone Sleep Study: per pulmonology CXR: per pulmonology clearance EKG: per cardiac clearance H Pylori: negative Labs: complete - vit D def (repeat ordered) Nicotine use <12 months: No, negative Tox screen: Negative Antiplatelet/anticoagulants: No Immunosuppressive therapy: No Estrogen therapy: No Evaluations: Psychology: ongoing 03/19 Nutrition: cleared Education class: ongoing Clearances: -Cardiology (cleared; OV 01/15) -Pulmonology (cleared; OV 01/22) -PCP Risk Calculator: VTE Risk: 0.16 - 0.25% ISS score: not diabetic Adverse Event score: NA Post-op Medications: Extended Lovenox: No Actigall: Yes PPI: Yes Tylenol: Yes Zofran: Yes Total time in direct patient contact = 10 minutes. Greater than 50% of the time was spent in counseling and/or coordination of care. This note was generated using voice recognition technology and may contain grammatical errors. 1. Class 3 severe obesity with serious comorbidity and body mass index (BMI) of 40.0 to 44.9 in adult, unspecified obesity type (HCC) Patient has been cleared by cardiology and pulmonology. Awaiting psychiatric clearance. Patient is taking a multivitamin and additional Vitamin D 5000 IU daily. - Attempt to expedite psychiatric appointment. - Schedule consent appointment with Dr. Barrios post-psychiatric clearance. - Advised patient to schedule a primary care appointment for surgical clearance within 30 days of surgery once the date is confirmed. - Recommended 4 weeks off work post-surgery for recovery, but patient plans to take 1.5 weeks due to job requirements. 2. Vitamin D deficiency Patient has been taking additional Vitamin D 5000 IU daily for the past month. Previous levels were borderline normal. - Ordered repeat Vitamin D level to ensure normalization before surgery. - Educated patient on the role of Vitamin D in bone health and its sources. All testing complete. She needs psych clearance (03/19) and is okay to consent in March. Vilma Rouse APRN.CNP Medical Decision Making: Problems: Low: Stable chronic illness Data: Unique source(s) for external note(s) reviewed: 1 Unique test result(s) reviewed: 1 Unique test(s) ordered: 1 Assessment requiring an independent historian(s) Medical Decision Making Level: 3 - Low documented in this encounter [facility] 03-04-2025 Telephone encounter Note Prescription Refill Information The patient has been identified by name and date of : Yes Caregiver verified no other encounters exist for this prescription request: Yes Caregiver confirmed with patient/requestor that no other refills are due, in the near future, with this provider at this time: Yes The last office visit in the department: 02-27-25 Does the patient have a future office visit with this provider/department: Yes Requested Prescriptions Pending Prescriptions Disp Refills metFORMIN (GLUCOPHAGE) 500 mg tablet 60 tablet 2 Sig: Take 1 tablet by mouth two times a day with meals. Alma Rosa Quesada March 04, 2025 11:16 AM [facility] 03-04-2025 Miscellaneous Notes Prescription Refill Information The patient has been identified by name and date of : Yes Caregiver verified no other encounters exist for this prescription request: Yes Caregiver confirmed with patient/requestor that no other refills are due, in the near future, with this provider at this time: Yes The last office visit in the department: 02-27-25 Does the patient have a future office visit with this provider/department: Yes Requested Prescriptions Pending Prescriptions Disp Refills metFORMIN (GLUCOPHAGE) 500 mg tablet 60 tablet 2 Sig: Take 1 tablet by mouth two times a day with meals. Alma Rosa Quesada March 04, 2025 11:16 AM documented in this encounter [facility] 02-27-2025 Note HNO ID: [id number] Author: WILSON WHARTON APRN.BRIT Service: ? Author Type: Nurse Practitioner Type: Progress Notes Filed: 04/17/2025 10:42 Note Text: SUBJECTIVE Poly Armando is a 29 year old female here today for a check up on her medical problems. Chief Complaint Patient presents with: F/U 3 Month HPI Poly Armando is a 29 year old female. She is an established patient and here today for follow up. Last seen 11/28. Discussed concerns of weight. Referred to discuss options with bariatrics team. Working towards Joan-en-y gastric bypass. Working on weight loss. Weight down a few pounds. Not having frequent episodes of dizziness and palpitations. Mood is okay, not great but some better. Going to follow up with psychiatry per bariatric psychologist recommendation. Still with daytime sleepiness. Pulmonary had ordered Provigil but she never was able to fill it. Her medications were reviewed today and her list is now up to date. Medications Current Outpatient Medications Medication Sig propranolol ER (INDERAL LA) 160 mg Cs24 Take 1 capsule by mouth once daily. famotidine (PEPCID) 40 mg tablet Take 1 tablet by mouth once daily. metFORMIN (GLUCOPHAGE) 500 mg tablet Take 1 tablet by mouth two times a day with meals. desvenlafaxine ER (PRISTIQ) 100 mg 24 hr tablet Take 1 tablet by mouth once daily. modafinil (PROVIGIL) 200 mg tablet Take 1 tablet by mouth once daily for 180 days. No current facility-administered medications for this visit. ALLERGIES Allergen Reactions Lisinopril Intolerance Tape [Adhesive Tape* Rash ACTIVE PROBLEM LIST Excessive Daytime Sleepiness - 01/22/2025 Sleep-Disordered Breathing - 01/22/2025 Elevated Heart Rate With Elevated Blood Pressure and Diagnosis of Hypertension - 01/20/2022 Racing Heart Beat - 01/18/2022 Robert (Generalized Anxiety Disorder) - 11/18/2021 Hypertension, Essential - 11/18/2021 Comment: Hypertensive emergency or severe asymptomatic hypertension absent. No evidence of target organ damage. Lifestyle: never smoker; no use of EtOH Diet: she cooks at home; lots of pasta; she enjoys vegetables and fruits Exercise: no regimen; maybe 1 walk a day with the dogs Hidradenitis Suppurativa - 11/18/2021 Acne Vulgaris - 11/18/2021 Lymph Node Enlargement - 11/18/2021 Generalized Seizures (Hcc) - 03/03/2021 Tension Headaches - 03/03/2021 Headache, Rebound - 03/03/2021 Shortening, Leg, Congenital, Left - 01/04/2021 Scoliosis Concern - 01/04/2021 Seizure Disorder (Hcc) - 01/04/2021 Migraine Without Aura, Not Intractable, With Status Migrainosus - 01/04/2021 Obesity, Class III, BMI >= 40 - 01/03/2021 Social History Tobacco Use Smoking status: Never Smokeless tobacco: Never Vaping Use Vaping status: Never Used Substance Use Topics Alcohol use: Not Currently Drug use: Never Review of Systems Constitutional: Negative. Respiratory: Negative. Cardiovascular: Negative for chest pain and leg swelling. OBJECTIVE BP 102/72 Pulse 81 Wt 242 lb 15.2 oz (110.2kg) SpO2 99% LMP 02/26/2025 Physical Exam Vitals and nursing note reviewed. Constitutional: General: She is awake. She is not in acute distress. Appearance: Normal appearance. She is well-developed and well-groomed. She is not ill-appearing, toxic-appearing or diaphoretic. HENT: Head: Normocephalic. Right Ear: External ear normal. Left Ear: External ear normal. Nose: Nose normal. Eyes: General: Vision grossly intact. Conjunctiva/sclera: Conjunctivae normal. Pupils: Pupils are equal, round, and reactive to light. Neck: Vascular: No JVD. Trachea: Trachea normal. Cardiovascular: Rate and Rhythm: Normal rate and regular rhythm. Pulses: Normal pulses. Heart sounds: Normal heart sounds. No murmur heard. Pulmonary: Effort: Pulmonary effort is normal. No accessory muscle usage, prolonged expiration or respiratory distress. Breath sounds: Normal breath sounds. Musculoskeletal: Cervical back: Neck supple. Skin: General: Skin is warm and dry. Capillary Refill: Capillary refill takes less than 2 seconds. Neurological: General: No focal deficit present. Mental Status: She is alert and oriented to person, place, and time. Mental status is at baseline. Psychiatric: Attention and Perception: Attention and perception normal. Mood and Affect: Mood and affect normal. Speech: Speech normal. Behavior: Behavior normal. Behavior is cooperative. Thought Content: Thought content normal. Cognition and Memory: Cognition and memory normal. Judgment: Judgment normal. ASSESSMENT/PLAN: 1. Excessive daytime sleepiness - ICD9: 780.54, ICD10: G47.19 (primary diagnosis) Send script for Provigil for her to try. - MODAFINIL 200 MG TABLET 2. Sleep-disordered breathing - ICD9: 780.59, ICD10: G47.30 - MODAFINIL 200 MG TABLET 3. Obesity, Class III, BMI >= 40 - ICD9: 278.01, ICD10: E66.813 Weight decreasing - Behavioral (more content not included)... [facility] 02-27-2025 History of Presen t illness Narrative SUBJECTIVE Poly Armando is a 29 year old female here today for a check up on her medical problems. Chief Complaint Patient presents with: F/U 3 Month HPI Poly Armando is a 29 year old female. She is an established patient and here today for follow up. Last seen 11/28. Discussed concerns of weight. Referred to discuss options with bariatrics team. Working towards Joan-en-y gastric bypass. Working on weight loss. Weight down a few pounds. Not having frequent episodes of dizziness and palpitations. Mood is okay, not great but some better. Going to follow up with psychiatry per bariatric psychologist recommendation. Still with daytime sleepiness. Pulmonary had ordered Provigil but she never was able to fill it. Her medications were reviewed today and her list is now up to date. Medications Current Outpatient Medications Medication Sig propranolol ER (INDERAL LA) 160 mg Cs24 Take 1 capsule by mouth once daily. famotidine (PEPCID) 40 mg tablet Take 1 tablet by mouth once daily. metFORMIN (GLUCOPHAGE) 500 mg tablet Take 1 tablet by mouth two times a day with meals. desvenlafaxine ER (PRISTIQ) 100 mg 24 hr tablet Take 1 tablet by mouth once daily. modafinil (PROVIGIL) 200 mg tablet Take 1 tablet by mouth once daily for 180 days. No current facility-administered medications for this visit. ALLERGIES Allergen Reactions Lisinopril Intolerance Tape [Adhesive Tape* Rash ACTIVE PROBLEM LIST Excessive Daytime Sleepiness - 01/22/2025 Sleep-Disordered Breathing - 01/22/2025 Elevated Heart Rate With Elevated Blood Pressure and Diagnosis of Hypertension - 01/20/2022 Racing Heart Beat - 01/18/2022 Robert (Generalized Anxiety Disorder) - 11/18/2021 Hypertension, Essential - 11/18/2021 Comment: Hypertensive emergency or severe asymptomatic hypertension absent. No evidence of target organ damage. Lifestyle: never smoker; no use of EtOH Diet: she cooks at home; lots of pasta; she enjoys vegetables and fruits Exercise: no regimen; maybe 1 walk a day with the dogs Hidradenitis Suppurativa - 11/18/2021 Acne Vulgaris - 11/18/2021 Lymph Node Enlargement - 11/18/2021 Generalized Seizures (Hcc) - 03/03/2021 Tension Headaches - 03/03/2021 Headache, Rebound - 03/03/2021 Shortening, Leg, Congenital, Left - 01/04/2021 Scoliosis Concern - 01/04/2021 Seizure Disorder (Hcc) - 01/04/2021 Migraine Without Aura, Not Intractable, With Status Migrainosus - 01/04/2021 Obesity, Class III, BMI >= 40 - 01/03/2021 Social History Tobacco Use Smoking status: Never Smokeless tobacco: Never Vaping Use Vaping status: Never Used Substance Use Topics Alcohol use: Not Currently Drug use: Never Review of Systems Constitutional: Negative. Respiratory: Negative. Cardiovascular: Negative for chest pain and leg swelling. OBJECTIVE BP 102/72 Pulse 81 Wt 242 lb 15.2 oz (110.2kg) SpO2 99% LMP 02/26/2025 Physical Exam Vitals and nursing note reviewed. Constitutional: General: She is awake. She is not in acute distress. Appearance: Normal appearance. She is well-developed and well-groomed. She is not ill-appearing, toxic-appearing or diaphoretic. HENT: Head: Normocephalic. Right Ear: External ear normal. Left Ear: External ear normal. Nose: Nose normal. Eyes: General: Vision grossly intact. Conjunctiva/sclera: Conjunctivae normal. Pupils: Pupils are equal, round, and reactive to light. Neck: Vascular: No JVD. Trachea: Trachea normal. Cardiovascular: Rate and Rhythm: Normal rate and regular rhythm. Pulses: Normal pulses. Heart sounds: Normal heart sounds. No murmur heard. Pulmonary: Effort: Pulmonary effort is normal. No accessory muscle usage, prolonged expiration or respiratory distress. Breath sounds: Normal breath sounds. Musculoskeletal: Cervical back: Neck supple. Skin: General: Skin is warm and dry. Capillary Refill: Capillary refill takes less than 2 seconds. Neurological: General: No focal deficit present. Mental Status: She is alert and oriented to person, place, and time. Mental status is at baseline. Psychiatric: Attention and Perception: Attention and perception normal. Mood and Affect: Mood and affect normal. Speech: Speech normal. Behavior: Behavior normal. Behavior is cooperative. Thought Content: Thought content normal. Cognition and Memory: Cognition and memory normal. Judgment: Judgment normal. ASSESSMENT/PLAN: 1. Excessive daytime sleepiness - ICD9: 780.54, ICD10: G47.19 (primary diagnosis) Send script for Provigil for her to try. - MODAFINIL 200 MG TABLET 2. Sleep-disordered breathing - ICD9: 780.59, ICD10: G47.30 - MODAFINIL 200 MG TABLET 3. Obesity, Class III, BMI >= 40 - ICD9: 278.01, ICD10: E66.813 Weight decreasing - Behavioral intervention and - Pharmacological intervention Working with bariatric surgery team. 4. IFG (impaired fasting glucose) - ICD9: 790.21, ICD10: R73.01 Working on weight loss. 5. Moderate episode of recurrent major depressive disorder (HCC) - ICD9: 296.32, ICD10: F33.1 Planning to follow up with psychiatry. Portions of this note have been entered by ancillary staff. I have reviewed and when necessary edited, so that they are an adequate record of my encounter with this patient Please note that parts of this document were created using voice recognition software and therefore may contain grammatical errors. Patient verbalizes understanding of instructions from today's visit and in agreement with treatment plan. Questions answered. Agrees to call the office if questions, concerns of issues with acute symptoms not improving or if they worsen. See diagnoses and orders for additional plan(s). Allergies and medications were reviewed, list was updated, and refills given if needed. Past medical, surgical, social, and family history reviewed and updated as appropriate. Encouraged proper diet & exercise as well as compliance with taking medications. Age-appropriate health preventative measures were discussed. Return if symptoms worsen or fail to improve, for routine follow up in 3-6 months.. Wilson Wharton APRN-BOOM MASTER documented in this encounter [facility] 01-29-2025 History of Presen t illness Narrative oPly Armando Education Class: Patient will receive instruction regarding healthy food choices and eating behaviors identified as optimal when preparing for surgery, losing weight after surgery, and maintaining weight loss long-term. Patient will also receive instruction regarding the Bariatric Full Liquid diet following surgery and optimal post-operative high-protein supplement choices. Education class to be completed prior to surgery. Behaviors Accomplished: Visit # 3 Date: 01/29/2025 Weight: 112.5 kg (248 lb)- 4 lb weight loss since initial in office encounter. Behaviors that helped/hindered weight loss: helped-journaling Eating 3 meals/one snack Choose healthy foods Daily multivitamin D/c'd caffeinated, carbonated beverages 24 hour diet recall Breakfast: protein shake Lunch: hamburger (no bun), sweet potatoes, green beans Dinner: strawberry chicken salad Snacks: -- Fluids (liquid intake-oz): yesterday: -- Protein (grams/day): yesterday: 74 g Fluid intake (oz/day) over the last 7 days: 2 days ago: 48 g 3 days ago: 64 oz 4 days ago: -- 5 days ago: -- 6 days ago:-- 7 days ago: -- Protein intake (grams/day) over the last 7 days: 2 days ago: 70 g 3 days ago: 80 g 4 days ago: -- 5 days ago: -- 6 days ago: -- 7 days ago: -- Alcohol/Caffeine/Sugar/Sweetener /Carbonation Beverages in Diet: Carbonation: none Caffeine: none Sugar: none Sweeteners: none Alcohol: none Exercise: 3x/week-gym for 1 hour each day Written information provided and reviewed: As noted Preop patient a month #3-working towards obtaining nutrition clearance. She is doing well with meeting most preop nutrition requirements. She is mostly keeping a food journal, but over the last week, she has not been as consistent. She is eating out 3 times per week-mostly due to having multiple children on multiple baseball teams. We discussed strategies and how to limit eating out to once per week. She is doing well with all other preop nutrition requirements. Discussed need to meet goals as listed below to obtain nutrition clearance. Goals journal daily and bring to all appointments-meet protein/fluid goals 5 days/week- 60-90 g/day and 64 oz limit eating out to once/week The patient meets NIH guidelines for weight loss surgery and has been thoroughly evaluated and educated on good dietary practices. Patient is capable of following these guidelines pre-and post-surgically. From nutrition standpoint, the has partially met nutrition clearance and will need to demonstrate limiting eating out to once per week and maintain food journal, at least 5 days/week-meet protein and fluid goals to receive nutrition clearance. Plan: Follow up with [facility] in 1 month virtual Total time in direct patient contact = [address] This note was generated using voice recognition technology and may contain grammatical errors. documented in this encounter [facility] 01-29-2025 Note HNO ID: [id number] Author: ALLISON MELCHOR RD Service: ? Author Type: Registered Dietitian Type: Progress Notes Filed: 01/29/2025 09:51 Note Text: Poly Armando Education Class: Patient will receive instruction regarding healthy food choices and eating behaviors identified as optimal when preparing for surgery, losing weight after surgery, and maintaining weight loss long-term. Patient will also receive instruction regarding the Bariatric Full Liquid diet following surgery and optimal post-operative high-protein supplement choices. Education class to be completed prior to surgery. Behaviors Accomplished: Visit # 3 Date: 01/29/2025 Weight: 112.5 kg (248 lb)- 4 lb weight loss since initial in office encounter. Behaviors that helped/hindered weight loss: helped-journaling Eating 3 meals/one snack Choose healthy foods Daily multivitamin D/c'd caffeinated, carbonated beverages 24 hour diet recall Breakfast: protein shake Lunch: hamburger (no bun), sweet potatoes, green beans Dinner: strawberry chicken salad Snacks: -- Fluids (liquid intake-oz): yesterday: -- Protein (grams/day): yesterday: 74 g Fluid intake (oz/day) over the last 7 days: 2 days ago: 48 g 3 days ago: 64 oz 4 days ago: -- 5 days ago: -- 6 days ago:-- 7 days ago: -- Protein intake (grams/day) over the last 7 days: 2 days ago: 70 g 3 days ago: 80 g 4 days ago: -- 5 days ago: -- 6 days ago: -- 7 days ago: -- Alcohol/Caffeine/Sugar/Sweetener /Carbonation Beverages in Diet: Carbonation: none Caffeine: none Sugar: none Sweeteners: none Alcohol: none Exercise: 3x/week-gym for 1 hour each day Written information provided and reviewed: As noted Preop patient a month #3-working towards obtaining nutrition clearance. She is doing well with meeting most preop nutrition requirements. She is mostly keeping a food journal, but over the last week, she has not been as consistent. She is eating out 3 times per week-mostly due to having multiple children on multiple baseball teams. We discussed strategies and how to limit eating out to once per week. She is doing well with all other preop nutrition requirements. Discussed need to meet goals as listed below to obtain nutrition clearance. Goals journal daily and bring to all appointments-meet protein/fluid goals 5 days/week- 60-90 g/day and 64 oz limit eating out to once/week The patient meets NIH guidelines for weight loss surgery and has been thoroughly evaluated and educated on good dietary practices. Patient is capable of following these guidelines pre-and post-surgically. From nutrition standpoint, the has partially met nutrition clearance and will need to demonstrate limiting eating out to once per week and maintain food journal, at least 5 days/week-meet protein and fluid goals to receive nutrition clearance. Plan: Follow up with [facility] in 1 month virtual Total time in direct patient contact = [address] This note was generated using voice recognition technology and may contain grammatical errors. [facility] 01-29-2025 Note Education ([id number]) POLY ARMANDO ([id number]) 1995 F Date Time Provider Department 01/29/25 9:30 AM ALLISON [email or web address] Reason for Visit: Follow Up [171] Cmt: Weight check Primary Visit Diagnosis:Dietary counseling and surveillance [Z71.3] During your visit today, we recorded the following information about you: Weight Height 112.5 kg 1.6 m Allergies As of Date: 01/29/2025 Noted Allergy Reaction LISINOPRIL 01/20/2022 5 - Intolerance TAPE (ADHESIVE TAPE (ROSINS)) 08/14/2024 2 - Rash Date Reviewed: 01/22/2025 Reviewed by: Ira May APRN.BOOM MASTER - Fully Assessed Prescriptions as of 01/29/2025 - modafinil (PROVIGIL) 200 mg tablet Take 1 tablet by mouth once daily for 180 days. - propranolol ER (INDERAL LA) 160 mg Cs24 Take 1 capsule by mouth once daily. - famotidine (PEPCID) 40 mg tablet Take 1 tablet by mouth once daily. - metFORMIN (GLUCOPHAGE) 500 mg tablet Take 1 tablet by mouth two times a day with meals. - desvenlafaxine ER (PRISTIQ) 100 mg 24 hr tablet Take 1 tablet by mouth once daily. Follow-up and Disposition History for Encounter Date Provider Department Center 01/29/2025 [id number] [facility] Encounter Status:Closed by ALLISON MELCHOR on 01/29/25 [facility] 01-23-2025 Telephone encounter Note LVM for patient to call back to schedule: MMPI Testing 3 Month Follow Up Tigermedt message sent to patient. [facility] 01-23-2025 Miscellaneous Notes LVM for patient to call back to schedule: MMPI Testing 3 Month Follow Up Taltopiahart message sent to patient. documented in this encounter [facility] 01-22-2025 Telephone encounter Note Modafinil PA sent via Epic [facility] 01-22-2025 Instructions Ira May APRN.BRIT - 01/22/2025 8:35 AM EDT If the modafinil is affordable, you can try taking one tablet in the morning after you wake up for the day, and see if that helps you feel less tired. Try to work on your routine, maybe allotting more sleep time at night, and less nap time, if possible, and see if this maybe helps restructure your sleep patterns a little bit documented in this encounter [facility] 01-22-2025 Miscellaneous Notes Modafinil PA sent via Dole Tian documented in this encounter [facility] 01-22-2025 Note HNO ID: [id number] Author: IRA MAY APRN.BRIT Service: ? Author Type: Nurse Practitioner Type: Progress Notes Filed: 01/22/2025 08:44 Note Text: [facility] Department of Pulmonary AND Sleep Medicine Ira May APRN.CNP Pulmonary Consult Note REFERRING PROVIDER: No ref. provider found Poly rAmando is a 29 year old female who is here for evaluation of excessive daytime sleepiness, and surgical clearance. History of Illness: pt is here for clearance for bariatric surgery. Pt had HSAT in 2022, that showed AHI of only 3, so mild sleep-disordered breathing, and snoring. Does not qualify for CPAP treatment. Pt says he weight has not changed much since then. No further testing at this time. Pt does have a lot of daytime sleepiness. She says she has always taken an afternoon nap, even when she was in school growing up. But now she has 3 kids, and sometimes she gets 4-6 hours of sleep at night, and she takes a nap after she drops off kids to school, before work, and then if she has time after work she also takes a nap. Discussed trying to adjust bedtime routine, and getting a solid 7-8 hours at night, and cutting back on daytime naps. She says she has tried stimulants in the past and did not like how they made her feel. Will try to order modafinil and see if this is approved, and if that helps her any. HISTORY PAST MEDICAL HISTORY Diagnosis Date Headaches History of echocardiogram 05/16/2022 EF 65%. Normal scan History of Holter monitoring 02/10/2022 The patient completed a 24-hour Holter monitor demonstrating underlying sinus rhythm. Heart rate ranging from 65 to 158. Average heart rate 93. No evidence of atrial fibrillation or PACs. One PVC was appreciated. History of tilt table evaluation 08/29/2024 The test is negative for syncope. The test is negative for syncope. Overall stable blood pressures and heart rates were seen during upright tilt. she just felt dizzy upon the standing but the BP and HR stable. orthostatic vitals negative NAFLD (nonalcoholic fatty liver disease) Prediabetes Seizure (HCC) Uterine fibroid PAST SURGICAL HISTORY Procedure Laterality Date ANESTH, SECTION 2012,2014,2017 LIGATE FALLOPIAN TUBE Social History Tobacco Use Smoking status: Never Smokeless tobacco: Never Vaping Use Vaping status: Never Used Substance Use Topics Alcohol use: Not Currently Drug use: Never ALLERGIES: ALLERGIES Allergen Reactions Lisinopril Intolerance Tape [Adhesive Tape* Rash MEDICATIONS: Current Outpatient Medications Medication Sig propranolol ER (INDERAL LA) 160 mg Cs24 Take 1 capsule by mouth once daily. famotidine (PEPCID) 40 mg tablet Take 1 tablet by mouth once daily. metFORMIN (GLUCOPHAGE) 500 mg tablet Take 1 tablet by mouth two times a day with meals. desvenlafaxine ER (PRISTIQ) 100 mg 24 hr tablet Take 1 tablet by mouth once daily. modafinil (PROVIGIL) 200 mg tablet Take 1 tablet by mouth once daily for 180 days. No current facility-administered medications for this visit. IMMUNIZATIONS: Immunization History Administered Date(s) Administered influenza (IIV4) vaccine, age 6 mo - 64 yr, quadrivalent (AFLURIA, FLULAVAL, FLUZONE) 10/14/2021 influenza (IIV4) vaccine, age 6 mo - 64 yr, quadrivalent, PF (AFLURIA, FLUARIX, FLULAVAL, FLUZONE) 10/14/2021 REVIEW OF SYSTEMS Review of Systems Constitutional: Positive for fatigue. Negative for chills, diaphoresis, fever and unexpected weight change. HENT: Negative for congestion, dental problem, ear pain, postnasal drip, rhinorrhea, sinus pressure, sinus pain, sore throat and trouble swallowing. Eyes: Negative for photophobia, pain, discharge, itching and visual disturbance. Respiratory: Negative for apnea, cough, chest tightness, shortness of breath, wheezing and stridor. Cardiovascular: Negative for chest pain, palpitations and leg swelling. Gastrointestinal: Negative for abdominal distention, abdominal pain, blood in stool, constipation, diarrhea, nausea and vomiting. Endocrine: Negative for polydipsia, polyphagia and polyuria. Genitourinary: Negative for difficulty urinating, dysuria, flank pain and hematuria. Musculoskeletal: Negative for arthralgias, gait problem, joint swelling and myalgias. Skin: Negative for color change, pallor, rash and wound. Allergic/Immunologic: Negative for environmental allergies and food allergies. Neurological: Negative for dizziness, syncope, weakness, light-headedness, numbness and headaches. Hematological: Negative for adenopathy. Does not bruise/bleed easily. Psychiatric/Behavioral: Negative for agitation, behavioral problems, confusion and suicidal ideas. Vital Signs: BP 117/79 Pulse 83 Ht 5' 2.992 (1.60m) Wt 247 lb 12.8 oz (112.4kg) SpO2 98% LMP 10/31/2024 BMI 43.91 kg/(m2). Physical Exam Constitutional: General: She is not in acute distress. Appeara (more content not included)... [facility] History of Presen t illness Narrative [facility] Department of Pulmonary & Sleep Medicine Ira May APRN.BOOM MASTER Pulmonary Consult Note REFERRING PROVIDER: No ref. provider found Poly Armando is a 29 year old female who is here for evaluation of excessive daytime sleepiness, and surgical clearance. History of Illness: pt is here for clearance for bariatric surgery. Pt had HSAT in 2022, that showed AHI of only 3, so mild sleep-disordered breathing, and snoring. Does not qualify for CPAP treatment. Pt says he weight has not changed much since then. No further testing at this time. Pt does have a lot of daytime sleepiness. She says she has always taken an afternoon nap, even when she was in school growing up. But now she has 3 kids, and sometimes she gets 4-6 hours of sleep at night, and she takes a nap after she drops off kids to school, before work, and then if she has time after work she also takes a nap. Discussed trying to adjust bedtime routine, and getting a solid 7-8 hours at night, and cutting back on daytime naps. She says she has tried stimulants in the past and did not like how they made her feel. Will try to order modafinil and see if this is approved, and if that helps her any. HISTORY PAST MEDICAL HISTORY Diagnosis Date Headaches History of echocardiogram 05/16/2022 EF 65%. Normal scan History of Holter monitoring 02/10/2022 The patient completed a 24-hour Holter monitor demonstrating underlying sinus rhythm. Heart rate ranging from 65 to 158. Average heart rate 93. No evidence of atrial fibrillation or PACs. One PVC was appreciated. History of tilt table evaluation 08/29/2024 The test is negative for syncope. The test is negative for syncope. Overall stable blood pressures and heart rates were seen during upright tilt. she just felt dizzy upon the standing but the BP and HR stable. orthostatic vitals negative NAFLD (nonalcoholic fatty liver disease) Prediabetes Seizure (HCC) Uterine fibroid PAST SURGICAL HISTORY Procedure Laterality Date ANESTH, SECTION 2012,2014,2017 LIGATE FALLOPIAN TUBE Social History Tobacco Use Smoking status: Never Smokeless tobacco: Never Vaping Use Vaping status: Never Used Substance Use Topics Alcohol use: Not Currently Drug use: Never ALLERGIES: ALLERGIES Allergen Reactions Lisinopril Intolerance Tape [Adhesive Tape* Rash MEDICATIONS: Current Outpatient Medications Medication Sig propranolol ER (INDERAL LA) 160 mg Cs24 Take 1 capsule by mouth once daily. famotidine (PEPCID) 40 mg tablet Take 1 tablet by mouth once daily. metFORMIN (GLUCOPHAGE) 500 mg tablet Take 1 tablet by mouth two times a day with meals. desvenlafaxine ER (PRISTIQ) 100 mg 24 hr tablet Take 1 tablet by mouth once daily. modafinil (PROVIGIL) 200 mg tablet Take 1 tablet by mouth once daily for 180 days. No current facility-administered medications for this visit. IMMUNIZATIONS: Immunization History Administered Date(s) Administered influenza (IIV4) vaccine, age 6 mo - 64 yr, quadrivalent (AFLURIA, FLULAVAL, FLUZONE) 10/14/2021 influenza (IIV4) vaccine, age 6 mo - 64 yr, quadrivalent, PF (AFLURIA, FLUARIX, FLULAVAL, FLUZONE) 10/14/2021 REVIEW OF SYSTEMS Review of Systems Constitutional: Positive for fatigue. Negative for chills, diaphoresis, fever and unexpected weight change. HENT: Negative for congestion, dental problem, ear pain, postnasal drip, rhinorrhea, sinus pressure, sinus pain, sore throat and trouble swallowing. Eyes: Negative for photophobia, pain, discharge, itching and visual disturbance. Respiratory: Negative for apnea, cough, chest tightness, shortness of breath, wheezing and stridor. Cardiovascular: Negative for chest pain, palpitations and leg swelling. Gastrointestinal: Negative for abdominal distention, abdominal pain, blood in stool, constipation, diarrhea, nausea and vomiting. Endocrine: Negative for polydipsia, polyphagia and polyuria. Genitourinary: Negative for difficulty urinating, dysuria, flank pain and hematuria. Musculoskeletal: Negative for arthralgias, gait problem, joint swelling and myalgias. Skin: Negative for color change, pallor, rash and wound. Allergic/Immunologic: Negative for environmental allergies and food allergies. Neurological: Negative for dizziness, syncope, weakness, light-headedness, numbness and headaches. Hematological: Negative for adenopathy. Does not bruise/bleed easily. Psychiatric/Behavioral: Negative for agitation, behavioral problems, confusion and suicidal ideas. Vital Signs: BP 117/79 Pulse 83 Ht 5' 2.992 (1.60m) Wt 247 lb 12.8 oz (112.4kg) SpO2 98% LMP 10/31/2024 BMI 43.91 kg/(m^2). Physical Exam Constitutional: General: She is not in acute distress. Appearance: She is obese. HENT: Head: Normocephalic and atraumatic. Nose: Nose normal. No septal deviation, mucosal edema or rhinorrhea. Mouth/Throat: Mouth: No oral lesions. Dentition: Normal dentition. Does not have dentures. Pharynx: Uvula midline. No oropharyngeal exudate or posterior oropharyngeal erythema. Tonsils: No tonsillar abscesses. Eyes: Conjunctiva/sclera: Conjunctivae normal. Pupils: Pupils are equal, round, and reactive to light. Neck: Thyroid: No thyromegaly. Vascular: No JVD. Trachea: No tracheal deviation. Cardiovascular: Rate and Rhythm: Normal rate and regular rhythm. Heart sounds: Normal heart sounds. Pulmonary: Effort: Pulmonary effort is normal. No respiratory distress. Breath sounds: Normal breath sounds. No stridor. No wheezing or rales. Abdominal: General: Bowel sounds are normal. There is no distension. Palpations: Abdomen is soft. Tenderness: There is no abdominal tenderness. There is no guarding. Musculoskeletal: General: Normal range of motion. Cervical back: Normal range of motion and neck supple. Skin: General: Skin is warm and dry. Findings: No erythema or rash. Neurological: Mental Status: She is alert and oriented to person, place, and time. Gait: Gait is intact. Psychiatric: Mood and Affect: Mood and affect normal. Cognition and Memory: Memory normal. Judgment: Judgment normal. DATA REVIEW Oximetry : 98% saturated at rest on room air. Olcott Sleepiness Scale: 7 ASSESSMENT/PLAN: 1. Excessive daytime sleepiness - ICD9: 780.54, ICD10: G47.19 (primary diagnosis) Try modafinil once daily - MODAFINIL 200 MG TABLET 2. Sleep-disordered breathing - ICD9: 780.59, ICD10: G47.30 No cpap therapy indicated - MODAFINIL 200 MG TABLET 3. Obesity, Class III, BMI >= 40 - ICD9: 278.01, ICD10: E66.813 Stable - Behavioral intervention - planning for bariatric surgery, and working with electronic calibration technician for that 4. Pre-op evaluation - ICD9: V72.84, ICD10: Z01.818 Stable to proceed with surgery as planned. No further testing needed prior to surgery Ira May (Electronically signed expedite mailing) FOLLOW UP: Return in about 6 months (around 07/25/2025). This note was generated with voice recognition software and may contain errors including spelling, grammar, and syntax and mis-recognition of what was dictated that are not fully corrected. documented in this encounter [facility] 01-21-2025 Note HNO ID: [id number] Author: SHELLI HAQUE PSYD Service: ? Author Type: Psychologist Type: Progress Notes Filed: 01/21/2025 14:25 Note Text: [facility] New Patient Evaluation DATE OF SERVICE: 01/21/2025 CPT CODE: - [id number] Virtual Psych Diagnostic Eval This is a virtual visit using Tigermedt video visit. It required patient-provider interaction for the medical decision making as documented below. I have communicated my name and active licensure. The patient's identity and physical location were verified at the time of this visit. Either the patient or their legal credit and collections representative has been informed of the risks and benefits of -- and alternatives to -- treatment through a remote evaluation and consents to proceed with the evaluation remotely. I spent a total of 19 minutes on the date of the service which included [id number] patient care. IDENTIFYING INFORMATION Poly Armando is a 29 year old COMMODITY BUYER is required. Please contact your server security administrator to configure this SmartLink. [email or web address] is seeking bariatric surgery. Consent form was provided to the patient and reviewed in detail prior to starting the session. MOTIVATION FOR WEIGHT MANAGEMENT: She said she is looking to improve overall health. MEDICAL PROBLEMS ACTIVE PROBLEM LIST Obesity, Class III, BMI >= 40 Shortening, Leg, Congenital, Left Scoliosis Concern Seizure Disorder (Hcc) Migraine Without Aura, Not Intractable, With Status Migrainosus Generalized Seizures (Hcc) Tension Headaches Headache, Rebound Robert (Generalized Anxiety Disorder) Hypertension, Essential Hidradenitis Suppurativa Acne Vulgaris Lymph Node Enlargement Racing Heart Beat Elevated Heart Rate With Elevated Blood Pressure and Diagnosis of Hypertension MEDICATIONS Current Outpatient Medications Medication Sig propranolol ER (INDERAL LA) 160 mg Cs24 Take 1 capsule by mouth once daily. famotidine (PEPCID) 40 mg tablet Take 1 tablet by mouth once daily. metFORMIN (GLUCOPHAGE) 500 mg tablet Take 1 tablet by mouth two times a day with meals. desvenlafaxine ER (PRISTIQ) 100 mg 24 hr tablet Take 1 tablet by mouth once daily. No current facility-administered medications for this visit. ALLERGIES ALLERGIES Allergen Reactions Lisinopril Intolerance Tape [Adhesive Tape* Rash EATING/WEIGHT HISTORY: Her highest weight as an adult was 253 lbs. The patient reports the following factors as contributing to weight gain: She said she started gaining weight when her son was diagnosed with Leukemia . She denies a family history of obesity. Last 3 Encounter Wt Readings: Date: Wt: 01/15/2025 111.9 kg (246 lb 11.1 oz) 01/08/2025 112 kg (247 lb) 12/22/2024 114.3 kg (252 lb) The patient has tried weight loss strategies in the past including: Phentermine The patient denies a history of laxative/diuretic use. The patient denies a history of vomiting to lose weight. The patient denies a history of an eating disorder. The patient has not had treatment for eating disorders in the past. CURRENT WEIGHT LOSS MEDICATIONS: No CURRENT EATING PATTERNS: The patient is working on changing the following eating habits: Working with Kaya and Allison. Emotional Eating Endorsed: Bored Trigger Food/s: potatoes 24 hour recall: Breakfast: protein shake Snack: no Lunch: Pineapple, Canalope, and a cheese stick Snack: no Dinner: salad with taco meat, taco chips, and irish dressing Snack: no Working on water. BINGE EATING ASSESSMENT: A. Recurrent episodes of binge eating. An episode is characterized by: 1. Eating a larger amount of food than normal during a short period of time (within any two hour period): No 2. Lack of control over eating during the binge episode (i.e. the feeling that one cannot stop eating): No GRAZE EATING The patient reports graze eating behaviors: no NIGHT EATING SYNDROME A. Demonstrates a significantly increased intake in the evening and/or nighttime, as evidenced by one or both of the following. 1. At least 25% of food is consumed after the evening meal: No 2. 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 SLEEP The patient reports problems falling asleep: No The patient reports problems staying asleep:No The patient reports the following quality of sleep:fair The patient was encouraged to consistently adhere with their CPAP if they are diagnosed with INDIGO.. MENTAL HEALTH HISTORY The patient reports taking medication for depression since her son got sick 7 years ago. Currently on Pristiq and she said that is helping. Ms. Armando has never been an inpatient for a psychiatric reason. The patient has no previous suicide attempts or past or current thoughts of self-arm. CURRENT PSYCHIATRIC SYMPTOMS: Depression: Decreased concentration Anxiety: Difficulty controlling worry (more content not included)... [facility] 01-21-2025 History of Presen t illness Narrative Images from the original note were not included. [facility] New Patient Evaluation DATE OF SERVICE: 01/21/2025 CPT CODE: - [id number] Virtual Psych Diagnostic Eval This is a virtual visit using Linguee video visit. It required patient-provider interaction for the medical decision making as documented below. I have communicated my name and active licensure. The patient's identity and physical location were verified at the time of this visit. Either the patient or their legal credit and collections representative has been informed of the risks and benefits of -- and alternatives to -- treatment through a remote evaluation and consents to proceed with the evaluation remotely. I spent a total of 19 minutes on the date of the service which included [id number] patient care. IDENTIFYING INFORMATION Poly Armando is a 29 year old COMMODITY BUYER is required. Please contact your server security administrator to configure this SmartLink. [email or web address] is seeking bariatric surgery. Consent form was provided to the patient and reviewed in detail prior to starting the session. MOTIVATION FOR WEIGHT MANAGEMENT: She said she is looking to improve overall health. MEDICAL PROBLEMS ACTIVE PROBLEM LIST Obesity, Class III, BMI >= 40 Shortening, Leg, Congenital, Left Scoliosis Concern Seizure Disorder (Hcc) Migraine Without Aura, Not Intractable, With Status Migrainosus Generalized Seizures (Hcc) Tension Headaches Headache, Rebound Robert (Generalized Anxiety Disorder) Hypertension, Essential Hidradenitis Suppurativa Acne Vulgaris Lymph Node Enlargement Racing Heart Beat Elevated Heart Rate With Elevated Blood Pressure and Diagnosis of Hypertension MEDICATIONS Current Outpatient Medications Medication Sig propranolol ER (INDERAL LA) 160 mg Cs24 Take 1 capsule by mouth once daily. famotidine (PEPCID) 40 mg tablet Take 1 tablet by mouth once daily. metFORMIN (GLUCOPHAGE) 500 mg tablet Take 1 tablet by mouth two times a day with meals. desvenlafaxine ER (PRISTIQ) 100 mg 24 hr tablet Take 1 tablet by mouth once daily. No current facility-administered medications for this visit. ALLERGIES ALLERGIES Allergen Reactions Lisinopril Intolerance Tape [Adhesive Tape* Rash EATING/WEIGHT HISTORY: Her highest weight as an adult was 253 lbs. The patient reports the following factors as contributing to weight gain: She said she started gaining weight when her son was diagnosed with Leukemia . She denies a family history of obesity. Last 3 Encounter Wt Readings: Date: Wt: 01/15/2025 111.9 kg (246 lb 11.1 oz) 01/08/2025 112 kg (247 lb) 12/22/2024 114.3 kg (252 lb) The patient has tried weight loss strategies in the past including: Phentermine The patient denies a history of laxative/diuretic use. The patient denies a history of vomiting to lose weight. The patient denies a history of an eating disorder. The patient has not had treatment for eating disorders in the past. CURRENT WEIGHT LOSS MEDICATIONS: No CURRENT EATING PATTERNS: The patient is working on changing the following eating habits: Working with Kaya and Allison. Emotional Eating Endorsed: Bored Trigger Food/s: potatoes 24 hour recall: Breakfast: protein shake Snack: no Lunch: Pineapple, Canalope, and a cheese stick Snack: no Dinner: salad with taco meat, taco chips, and irish dressing Snack: no Working on water. BINGE EATING ASSESSMENT: A. Recurrent episodes of binge eating. An episode is characterized by: 1. Eating a larger amount of food than normal during a short period of time (within any two hour period): No 2. Lack of control over eating during the binge episode (i.e. the feeling that one cannot stop eating): No GRAZE EATING The patient reports graze eating behaviors: no NIGHT EATING SYNDROME A. Demonstrates a significantly increased intake in the evening and/or nighttime, as evidenced by one or both of the following. 1. At least 25% of food is consumed after the evening meal: No 2. 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 SLEEP The patient reports problems falling asleep: No The patient reports problems staying asleep:No The patient reports the following quality of sleep:fair The patient was encouraged to consistently adhere with their CPAP if they are diagnosed with INDIGO.. MENTAL HEALTH HISTORY The patient reports taking medication for depression since her son got sick 7 years ago. Currently on Pristiq and she said that is helping. Ms. Armando has never been an inpatient for a psychiatric reason. The patient has no previous suicide attempts or past or current thoughts of self-arm. CURRENT PSYCHIATRIC SYMPTOMS: Depression: Decreased concentration Anxiety: Difficulty controlling worry [place]: Denies any history of hypomanic or manic episodes. Psychosis: Denies any hallucinations or delusions. Panic: Denies any symptoms of panic. Post-Traumatic Stress Disorder: Trauma related to her son's leukemia diagnosis CURRENT STRESSORS/COPING STRATEGIES: The patient reports the following stressors: running around with her kids activities Ms. Armando reports the following coping strategies: watch her kids play sports. Patient Data Binge Eating Scale (BES) 01/20/2025 Eating Habits Checklist Total Score 4 Patient-reported <18 = minimal binge eating, 18-26 = moderate binge eating, >27 = severe binge eating Generalized Anxiety Disorder Scale (ROBERT-7) 02/02/2024 11/27/2024 01/20/2025 ROBERT - 7 SCORES Score 10 5 4 (0-4) minimal anxiety, (5-9) mild anxiety, (10-14) moderate anxiety, (15-21) severe anxiety Patient Health Questionnaire (PHQ-9) 07/10/2024 11/26/2024 01/20/2025 PHQ-9 Score 7 6 5 (0-4) minimal depression, (5-9) mild depression, (10-14) moderate depression, (15-19) moderately severe depression, (20-27) severe depression SUBSTANCE USE How often do you drink Alcohol? No The patient is a lifelong nonsmoker. The patient denies current drug use.. FAMILY OF ORIGIN Ms. Armando was raised by her mom and dad. She described her childhood as normal The patient had 3 siblings She is currently close with her family. MARITAL FAMILY/SIGNIFICANT RELATIONSHIPS Ms. Armando has been 10 years. 3 boys, 7, 9, and 11 She describes her family life as good. Support System Includes: EDUCATION/EMPLOYMENT The patient has completed (high school). The patient is employed with [employer], works Sunday- Sunday 10:30 to 1. UNDERSTANDING OF AND EXPECTATIONS FOR MEDICAL WEIGHT MANAGEMENT The patient has a good understanding of medical weight management and its benefits. MENTAL STATUS EXAMINATION: Appearance: normal grooming Eye contact: normal Rapport: easy. Orientation: alert and oriented in all spheres (time, person, place, situation, object) Mood: calm Affect: appropriate. Body Image: Within Normal Limits Suicidal/homicidal ideation: Pt denied suicidal/homicidal ideation, plan and intent. Recall/Memory: normal Attention: normal Concentration:Normal Speech: within normal limits with regard to rate, tone and volume Psychomotor activity: average. Thought process: no evidence of formal thought disorder. Though content: within normal limits Hallucinations/Delusions none Insight: intact Judgment: normal The patient's motivation for treatment was judged to be good. PROVISIONAL DIAGNOSTIC IMPRESSION Eating disorder, unspecified type (primary encounter diagnosis) Anxiety Mdd (major depressive disorder), recurrent episode, mild IMPRESSIONS 1) Ms. Armando appeared to have reasonable expectations regarding medical weight management. She demonstrated good knowledge about the behavior changes necessary. Furthermore, pt appeared to be in the active stage of change at this time. 2) Recommendations and treatment plan will be communicated back to the referring physician by way of the shared medical record. Thank you for this referral. Please feel free to call or message with any questions. TREATMENT RECOMMENDATIONS AND PLAN: MMPI 3 Schedule with Psychiatry for Medication Evaluation Work toward nutrition clearance Increase exercise as tolerated Follow Up: 3 months Shelli Haque PSYD Clinical Health Psychologist Bariatrics documented in this encounter [facility] 01-15-2025 Note HNO ID: [id number] Author: NIKOLAS CARBAJAL MD Service: ? Author Type: Physician Type: Progress Notes Filed: 01/15/2025 11:47 Note Text: Referring Provider: No ref. provider found Date: January 15, 2025 Chief Complaint: CARD New Patient Consult (Pre op clearance for bariatric surgery) HISTORY OF PRESENT ILLNESS: Poly Armando presents for CARD New Patient Consult (Pre op clearance for bariatric surgery). 29-year-old young lady with a history of hypertension and diabetes referred for preoperative evaluation before planned bariatric surgery. Without antecedent history of cardiac disease she has undergone previous 2-week monitoring and echocardiographic assessment. Monitor revealed no significant rhythm disturbances and her echocardiogram demonstrated only what appeared to be a somewhat aneurysmal interatrial septum. She has no family history of cardiac disease and denies limitation of exercise tolerance, unusual dyspnea on exertion, symptoms of significant dysrhythmia, and chest discomfort. She has clearly pursued at activities greater than 4 METS, walking on the treadmill at 4 miles an hour for 30 minutes and mowing grass with a push mower. ALLERGIES Allergen Reactions Lisinopril Intolerance Tape [Adhesive Tape* Rash PAST MEDICAL HISTORY: PAST MEDICAL HISTORY Diagnosis Date Headaches History of echocardiogram 05/16/2022 EF 65%. Normal scan History of Holter monitoring 02/10/2022 The patient completed a 24-hour Holter monitor demonstrating underlying sinus rhythm. Heart rate ranging from 65 to 158. Average heart rate 93. No evidence of atrial fibrillation or PACs. One PVC was appreciated. History of tilt table evaluation 08/29/2024 The test is negative for syncope. The test is negative for syncope. Overall stable blood pressures and heart rates were seen during upright tilt. she just felt dizzy upon the standing but the BP and HR stable. orthostatic vitals negative NAFLD (nonalcoholic fatty liver disease) Prediabetes Seizure (HCC) Uterine fibroid PAST SURGICAL HISTORY Procedure Laterality Date ANESTH, SECTION 2012,2014,2016 LIGATE FALLOPIAN TUBE FAMILY HISTORY Problem Relation Age of Onset DVT Mother Hypertension Mother Hypertension Father Diabetes Father Cancer Son Colon Cancer Maternal Aunt SOCIAL HISTORY: Tobacco Use: Never Alcohol Use: Not Currently Drug Use: Never Employer And Job Title: None on file Years Of Education Completed: Not specified Marital Status: with 3 children MEDICATIONS: Current Outpatient Medications Medication Sig propranolol ER (INDERAL LA) 160 mg Cs24 Take 1 capsule by mouth once daily. famotidine (PEPCID) 40 mg tablet Take 1 tablet by mouth once daily. metFORMIN (GLUCOPHAGE) 500 mg tablet Take 1 tablet by mouth two times a day with meals. desvenlafaxine ER (PRISTIQ) 100 mg 24 hr tablet Take 1 tablet by mouth once daily. No current facility-administered medications for this visit. I have personally reviewed the patients past medical history including social, family, surgical, diagnostics, and medications. REVIEW OF SYSTEMS: Review of Systems Constitutional: Negative for chills and fatigue. Respiratory: Negative for chest tightness and shortness of breath. Cardiovascular: Negative for chest pain, palpitations and leg swelling. Neurological: Negative for dizziness, syncope, weakness and light-headedness. Hematological: Does not bruise/bleed easily. Psychiatric/Behavioral: Negative for confusion and hallucinations. PHYSICAL EXAMINATION: BP 124/88 (BP Site: Left Arm, BP Position: Sitting) Pulse (!) 54 Ht 160 cm (5' 3) Wt 111.9 kg (246 lb 11.1 oz) LMP 10/31/2024 (Exact Date) BMI 43.70 kg/m? Pleasant endomorphic female. EOMs full, sclerae and conjunctiva normal. Thyroid normal palpation. Carotid upstrokes normal without bruit. Chest is clear to auscultation. PMI is normal. S1-S2 normal without murmurs or gallops. Obese abdomen without masses or bruits. Pedal pulses intact with trace lower extremity edema. Alert and oriented x 3 and answers questions appropriately. Last 3 Encounter BP Readings: Date: BP: 01/08/2025 118/68 12/17/2024 118/70 11/28/2024 118/84 Last 3 Encounter Pulse Readings: Date: Pulse: 01/08/2025 64 12/17/2024 81 11/28/2024 72 Last 3 Encounter Wt Readings: Date: Wt: 01/08/2025 112 kg (247 lb) 12/22/2024 114.3 kg (252 lb) 12/17/2024 114.3 kg (252 lb) LABS: Glucose (mg/dL) Date Value 01/08/2025 140 03/08/2023 113 Potassium (mmol/L) Date Value 01/08/2025 4.4 03/08/2023 4.8 Sodium (mmol/L) Date Value 01/08/2025 139 03/08/2023 138 Chloride (mmol/L) Date Value 01/08/2025 101 03/08/2023 101 CO2 (mmol/L) Date Value 01/08/2025 26 03/08/2023 26 Creatinine (mg/dL) Date Value 01/08/2025 0.71 03/08/2023 0.74 BUN (mg/dL) Date Value 01/08/2025 19 03/08/2023 10 Anion Gap (mmol/L) Date Value 12/23 (more content not included)... [facility]25 Note HNO ID: [id number] Author: VILMA ROUSE APRN.BOOM MASTER Service: ? Author Type: Nurse Practitioner Type: Progress Notes Filed: 01/08/2025 10:06 Note Text: BARIATRIC SURGERY CLINIC FOLLOW UP NOTE HPI: Poly Armando a 29 year old female presents for medically supervised weight loss treatment of her obesity related co morbidities. This individual presents for month 2 of 6 required visits. Poly Armando weight has decreased since first visit in the program. PMH: Prediabetes HTN Tachycardia GERD Depression and anxiety Seizures HS Dizziness NAFLD Poly has completed the SNA and has started making improvements to her diet. She has started tracking on the [employer] sandrine and showed me her progress today. She is working on increasing her fluid and finds True Lemon very helpful. She is also trying to find time for formal exercise, but is very busy with her 3 kids and their activities. Denies recent illnesses, hospitalizations, and medication changes. Today, we further discussed the bariatric program - clearances, monthly visits, testing, etc. HISTORY REVIEWED (electronic chart updated): - medical history - medications - allergies - social history PAST MEDICAL HISTORY Diagnosis Date Headaches NAFLD (nonalcoholic fatty liver disease) Prediabetes Seizure (HCC) Uterine fibroid Social: Social History Tobacco Use Smoking status: Never Smokeless tobacco: Never Vaping Use Vaping status: Never Used Substance Use Topics Alcohol use: Not Currently Drug use: Never Medications: Current Outpatient Medications Medication Sig propranolol ER (INDERAL LA) 160 mg Cs24 Take 1 capsule by mouth once daily. famotidine (PEPCID) 40 mg tablet Take 1 tablet by mouth once daily. metFORMIN (GLUCOPHAGE) 500 mg tablet Take 1 tablet by mouth two times a day with meals. desvenlafaxine ER (PRISTIQ) 100 mg 24 hr tablet Take 1 tablet by mouth once daily. No current facility-administered medications for this visit. REVIEW OF SYSTEMS Review of Systems Constitutional: Positive for weight loss. Negative for chills, fever and malaise/fatigue. HENT: Negative. Eyes: Negative. Respiratory: Negative for cough and shortness of breath. Cardiovascular: Negative for chest pain, palpitations and leg swelling. Gastrointestinal: Positive for heartburn. Negative for abdominal pain, blood in stool, constipation, diarrhea, melena, nausea and vomiting. Genitourinary: Negative. Musculoskeletal: Negative for myalgias. Skin: Negative. Neurological: Negative for dizziness and headaches. Psychiatric/Behavioral: Negative. PHYSICAL EXAMINATION BP 118/68 Pulse 64 Ht 160 cm (5' 3) Wt 112 kg (247 lb) LMP 10/31/2024 (Exact Date) SpO2 96% BMI 43.75 kg/m? Physical Exam Vitals reviewed. Constitutional: General: She is not in acute distress. Appearance: Normal appearance. She is obese. She is not ill-appearing or toxic-appearing. Pulmonary: Effort: Pulmonary effort is normal. Abdominal: Comments: Obese Musculoskeletal: General: Normal range of motion. Cervical back: Normal range of motion. Skin: General: Skin is warm and dry. Neurological: Mental Status: She is alert. Psychiatric: Mood and Affect: Mood normal. Behavior: Behavior normal. Diagnostic Tests Reviewed for Today's Visit Most recent labs The plan of treatment for Poly Armando is: Further Work-up: Required monthly visits: 2 of 6 months Patient is interested in: RYGB EGD: 10/2024 - small hiatal hernia Pathology: Duodenum, biopsy: Duodenal mucosa with an intact villous architecture and intraepithelial lymphocytosis - can be associated with Losartan. Stomach, antrum, biopsy: Mild reactive gastropathy. No intestinal metaplasia or morphologic evidence of Helicobacter pylori organisms. Gastroesophageal junction, biopsy: Hyperplastic squamous esophageal mucosa with reactive epithelial changes and ulcer. No morphologic evidence of fungal organisms or viral cytopathic effect. Upper GI: defer to EGD RUQ US: 08/02/24 - hepatic steatosis HIDA: normal GB EF CT abd/pelvis (11/05/23): WNL aside from left renal stone Sleep Study: per pulmonology CXR: per pulmonology clearance EKG: per cardiac clearance H Pylori: negative Labs: ordered today Nicotine use <12 months: No, negative Tox screen: Negative Antiplatelet/anticoagulants: No Immunosuppressive therapy: No Estrogen therapy: No Evaluations: Psychology: ongoing 01/21 Nutrition: ongoing 01/29 Education class: ongoing Clearances: -Cardiology 01/15 -Pulmonology 01/22 -PCP Risk Calculator: VTE Risk: 0.16 - 0.25% ISS score: not diabetic Adverse Event score: NA Post-op Medications: Extended Lovenox: No Actigall: Yes PPI: Yes Tylenol: Yes Zofran: Yes Total time in direct patient contact = 15 minutes. Greater than 50% of the time was spent in counseling and/or coordination of care. This note was generated using (more content not included)... [facility] 01-08-2025 History of Presen t illness Narrative BARIATRIC SURGERY CLINIC FOLLOW UP NOTE HPI: Poly Armando a 29 year old female presents for medically supervised weight loss treatment of her obesity related co morbidities. This individual presents for month 2 of 6 required visits. Poly Armando weight has decreased since first visit in the program. PMH: Prediabetes HTN Tachycardia GERD Depression and anxiety Seizures HS Dizziness NAFLD Poly has completed the SNA and has started making improvements to her diet. She has started tracking on the [employer] sandrine and showed me her progress today. She is working on increasing her fluid and finds True Lemon very helpful. She is also trying to find time for formal exercise, but is very busy with her 3 kids and their activities. Denies recent illnesses, hospitalizations, and medication changes. Today, we further discussed the bariatric program - clearances, monthly visits, testing, etc. HISTORY REVIEWED (electronic chart updated): - medical history - medications - allergies - social history PAST MEDICAL HISTORY Diagnosis Date Headaches NAFLD (nonalcoholic fatty liver disease) Prediabetes Seizure (HCC) Uterine fibroid Social: Social History Tobacco Use Smoking status: Never Smokeless tobacco: Never Vaping Use Vaping status: Never Used Substance Use Topics Alcohol use: Not Currently Drug use: Never Medications: Current Outpatient Medications Medication Sig propranolol ER (INDERAL LA) 160 mg Cs24 Take 1 capsule by mouth once daily. famotidine (PEPCID) 40 mg tablet Take 1 tablet by mouth once daily. metFORMIN (GLUCOPHAGE) 500 mg tablet Take 1 tablet by mouth two times a day with meals. desvenlafaxine ER (PRISTIQ) 100 mg 24 hr tablet Take 1 tablet by mouth once daily. No current facility-administered medications for this visit. REVIEW OF SYSTEMS Review of Systems Constitutional: Positive for weight loss. Negative for chills, fever and malaise/fatigue. HENT: Negative. Eyes: Negative. Respiratory: Negative for cough and shortness of breath. Cardiovascular: Negative for chest pain, palpitations and leg swelling. Gastrointestinal: Positive for heartburn. Negative for abdominal pain, blood in stool, constipation, diarrhea, melena, nausea and vomiting. Genitourinary: Negative. Musculoskeletal: Negative for myalgias. Skin: Negative. Neurological: Negative for dizziness and headaches. Psychiatric/Behavioral: Negative. PHYSICAL EXAMINATION BP 118/68 Pulse 64 Ht 160 cm (5' 3) Wt 112 kg (247 lb) LMP 10/31/2024 (Exact Date) SpO2 96% BMI 43.75 kg/m Physical Exam Vitals reviewed. Constitutional: General: She is not in acute distress. Appearance: Normal appearance. She is obese. She is not ill-appearing or toxic-appearing. Pulmonary: Effort: Pulmonary effort is normal. Abdominal: Comments: Obese Musculoskeletal: General: Normal range of motion. Cervical back: Normal range of motion. Skin: General: Skin is warm and dry. Neurological: Mental Status: She is alert. Psychiatric: Mood and Affect: Mood normal. Behavior: Behavior normal. Diagnostic Tests Reviewed for Today's Visit Most recent labs The plan of treatment for Poly Armando is: Further Work-up: Required monthly visits: 2 of 6 months Patient is interested in: RYGB EGD: 10/2024 - small hiatal hernia Pathology: Duodenum, biopsy: Duodenal mucosa with an intact villous architecture and intraepithelial lymphocytosis - can be associated with Losartan. Stomach, antrum, biopsy: Mild reactive gastropathy. No intestinal metaplasia or morphologic evidence of Helicobacter pylori organisms. Gastroesophageal junction, biopsy: Hyperplastic squamous esophageal mucosa with reactive epithelial changes and ulcer. No morphologic evidence of fungal organisms or viral cytopathic effect. Upper GI: defer to EGD RUQ US: 08/02/24 - hepatic steatosis HIDA: normal GB EF CT abd/pelvis (11/05/23): WNL aside from left renal stone Sleep Study: per pulmonology CXR: per pulmonology clearance EKG: per cardiac clearance H Pylori: negative Labs: ordered today Nicotine use <12 months: No, negative Tox screen: Negative Antiplatelet/anticoagulants: No Immunosuppressive therapy: No Estrogen therapy: No Evaluations: Psychology: ongoing 01/21 Nutrition: ongoing 01/29 Education class: ongoing Clearances: -Cardiology 01/15 -Pulmonology 01/22 -PCP Risk Calculator: VTE Risk: 0.16 - 0.25% ISS score: not diabetic Adverse Event score: NA Post-op Medications: Extended Lovenox: No Actigall: Yes PPI: Yes Tylenol: Yes Zofran: Yes Total time in direct patient contact = 15 minutes. Greater than 50% of the time was spent in counseling and/or coordination of care. This note was generated using voice recognition technology and may contain grammatical errors. ASSESSMENT/PLAN: 1. Class 3 severe obesity with serious comorbidity and body mass index (BMI) of 40.0 to 44.9 in adult, unspecified obesity type (HCC) - ICD9: 278.01, V85.41, ICD10: E66.813, E66.01, Z68.41 (primary diagnosis) Weight decreasing - Medical nutrition therapy with dietitian and - Psychology - HEMOGLOBIN A1C - ZINC BLD - VITAMIN D 25 HYDROXY - VITAMIN B12 - VITAMIN B1 (THIAMINE), WHOLE BLOOD - VITAMIN A/RETINOL - PTH INTACT - LIPID PANEL, FASTING - IRON AND TIBC - FOLATE, SERUM - FERRITIN - COMPREHENSIVE METABOLIC PANEL - COMPLETE BLOOD COUNT Nutrition Counseling Practice these: - Eat 3 meals daily--can use approved/recommended protein shake as 1 meal replacement (should be <200 calories, 20-30g protein, <5g added sugar) - Keep a food journal 5-7x/week (consider [employer] or [employer] sandrine) and demonstrate meeting protein goal (60-90g protein for females, 70-105g protein for males)- Lean meats, fish, low fat dairy - cottage cheese, Portuguese yogurt, light yogurt, cheese, ricotta cheese, nuts, peanut butter, beans/legumes. Eat protein first at all meals. and 64oz of caffeine-free, carbonation-free fluids at least 5 days per week - engage in formal, planned exercise 5x/week for 30 minutes of cardiovascular activity OR 150+ minutes of cardiovascular activity per week - eliminate all caffeine, carbonation, alcohol and sugar-containing beverages from diet --consider sugar-free drink mixes, water, decaf coffee and tea - Separate eating and drinking by 30 minutes - Chew your food 20-30x per bite - Sip beverages slowly--no guzzling or gulping 2. NAFLD (nonalcoholic fatty liver disease) - ICD9: 571.8, ICD10: K76.0 - Continue positive LSM and efforts towards weight loss. 3. Gastroesophageal reflux disease, unspecified whether esophagitis present - ICD9: 530.81, ICD10: K21.9 - Discussed lifestyle modifications including losing weight, limiting caffeine, no meals three hours before sleep, and head of bed elevation - Continue antacid. Patient will need all testing and clearances. F/u with RD in January and JIG MILL OPERATOR in February. Today, we discussed that Poly Armando will need to complete a 6 consecutive month trial of diet and exercise per insurance requirements. Therefore, Poly Armando received 10-15 minutes of dietary counseling in office today, as well as was scheduled for our shared education class if not already. she will also need to be cleared by psychology and other specialties deemed necessary per insurance ie. Cardiology, pulmonology, etc. We discussed that monthly insurance requirements include visits with the surgeon, JIG MILL OPERATOR, and/or RD. If applicable, we discussed not becoming for 2 years after surgery. Getting while quickly losing weight could hurt the patient and the unborn baby. A test will be done in pre-op, day of surgery, if applicable. Vilma Rouse APRN.CNP Medical Decision Making: Problems: Moderate: 2+ stable chronic illnesses Data: Unique source(s) for external note(s) reviewed: 1 Unique test result(s) reviewed: 1 Unique test(s) ordered: 1 Assessment requiring an independent historian(s) Medical Decision Making Level: 4 - Moderate documented in this encounter [facility] 12-22-2024 History of Presen t illness Narrative [facility] - Bariatric Department New Patient Nutritional Assessment This patient encounter was completed virtually due to COVID-19 (audio/visual) using a secure, HIPPA compliant video chat software program with the patient's consent. I have communicated my name and active licensure. The patients identity and physical location were verified at the time of this visit. Either the patient or their legal credit and collections representative has been informed of the risks and benefits of -- and alternatives to -- treatment through remote evaluation and consents to proceed with the evaluation remotely. Poly Armando Month 09/29 Anthropometrics: 29 year old female Wt 114.3 kg (252 lb) LMP 10/31/2024 (Exact Date) BMI 44.64 kg/m Percent Body Fat: deferred Medical History: PAST MEDICAL HISTORY Diagnosis Date Headaches NAFLD (nonalcoholic fatty liver disease) Prediabetes Seizure (HCC) Uterine fibroid Medications: Current Outpatient Medications Medication Sig Dispense Refill propranolol ER (INDERAL LA) 160 mg Cs24 Take 1 capsule by mouth once daily. 90 capsule 2 famotidine (PEPCID) 40 mg tablet Take 1 tablet by mouth once daily. 90 tablet 2 metFORMIN (GLUCOPHAGE) 500 mg tablet Take 1 tablet by mouth two times a day with meals. 60 tablet 2 desvenlafaxine ER (PRISTIQ) 100 mg 24 hr tablet Take 1 tablet by mouth once daily. 90 tablet 1 No current facility-administered medications for this visit. Allergies: Lisinopril and Tape [Adhesive Tape (Rosins)] Weight History: See JIG MILL OPERATOR notes from initial program visit. Dietary Intake: 24 hour recall provided Breakfast- protein shake Lunch- mixed vegetables with cream cheese Dinner- salmon and peas Snacks- Will you be able to keep a detailed food journal? : yes Food Allergies: no Frequency of fried foods (deep fried/irish fries/fried chicken etc):Never Frequency of high sugar foods (candies, ice cream, cookies, ..etc): Never Frequency of snack-type foods (chips, crackers..etc): Rarely (1 - 2 times per week) Frequency of caffeine beverages: Never Frequency of carbonated beverages: Never Frequency of alcoholic beverages: Never Frequency of full sugar beverages (juices/sweet teas..etc): Never Frequency of dining out meals: Rarely (1 - 2 times per week) Physical Activity: Physical conditions limiting activity (injury or chronic condition): no Are you endorsing in any routine exercise?: no READINESS TO LEARN Cognitive ability: Alert and oriented Motivation to learn: Eager Family support: Unable to assess - Family not present Instruction provided to: Patient Patient learns best by: Multiple Methods Factors affecting learning: Unable to assess Physical limitations affecting learning: None Nutrition Diagnosis: Overweight/obesity related to nutrition knowledge deficit as evidenced by BMI above normative range for age and gender, Inadequate physical activity for weight loss . Nutrition Intervention: Start to follow meal guidelines provided and work toward goals outlined below. Nutrition Monitoring & Evaluation: Monthly supervised wt loss to evaluate weight loss efforts with patient protein goal of 60-90g in addition to requirements from nutrition checklist provided by Dietitian during visit and sent via [employer] message. Required months of supervised weight loss per insurance: per JIG MILL OPERATOR notes The setting was a shared nutrition appointment in which the patient was seen individually with group observers. Consent to be seen in a group setting was obtained virtually. Goals reviewed and outlined below. [facility] Patient agreement was reviewed and Poly Armando received a copy of the patient agreement. The patient is aware by receiving this agreement, this accepts their understanding of the agreement and that surgery may not be recommended for medical and behavorial health reasons. Goals: Goals formal exercise 5-7x/week as tolerated, goal of 30 minutes OR 150 minutes of activity per week aim for 3 meals or 5-6 small meals per day with a protein source - can use 1 protein shake as 1 meal replacment journal daily and bring to all appointments Total time in direct patient contact = 50 min. Greater than 50% of the time was spent in counseling and/or coordination of care. Kaya Mcdaniels RD This note was generated using voice recognition technology and may contain grammatical errors. documented in this encounter [facility] 12-22-2024 Note HNO ID: [id number] Author: KAYA MCDANIELS RD Service: ? Author Type: Registered Dietitian Type: Progress Notes Filed: 12/22/2024 14:33 Note Text: [facility] General - Bariatric Department New Patient Nutritional Assessment This patient encounter was completed virtually due to COVID-19 (audio/visual) using a secure, HIPPA compliant video chat software program with the patient's consent. I have communicated my name and active licensure. The patients identity and physical location were verified at the time of this visit. Either the patient or their legal credit and collections representative has been informed of the risks and benefits of -- and alternatives to -- treatment through remote evaluation and consents to proceed with the evaluation remotely. Poly Armando Month 09/29 Anthropometrics: 29 year old female Wt 114.3 kg (252 lb) LMP 10/31/2024 (Exact Date) BMI 44.64 kg/m? Percent Body Fat: deferred Medical History: PAST MEDICAL HISTORY Diagnosis Date Headaches NAFLD (nonalcoholic fatty liver disease) Prediabetes Seizure (HCC) Uterine fibroid Medications: Current Outpatient Medications Medication Sig Dispense Refill propranolol ER (INDERAL LA) 160 mg Cs24 Take 1 capsule by mouth once daily. 90 capsule 2 famotidine (PEPCID) 40 mg tablet Take 1 tablet by mouth once daily. 90 tablet 2 metFORMIN (GLUCOPHAGE) 500 mg tablet Take 1 tablet by mouth two times a day with meals. 60 tablet 2 desvenlafaxine ER (PRISTIQ) 100 mg 24 hr tablet Take 1 tablet by mouth once daily. 90 tablet 1 No current facility-administered medications for this visit. Allergies: Lisinopril and Tape [Adhesive Tape (Rosins)] Weight History: See J[employer] MILL OPERATOR notes from initial program visit. Dietary Intake: 24 hour recall provided Breakfast- protein shake Lunch- mixed vegetables with cream cheese Dinner- salmon and peas Snacks- Will you be able to keep a detailed food journal? : yes Food Allergies: no Frequency of fried foods (deep fried/irish fries/fried chicken etc):Never Frequency of high sugar foods (candies, ice cream, cookies, ..etc): Never Frequency of snack-type foods (chips, crackers..etc): Rarely (1 - 2 times per week) Frequency of caffeine beverages: Never Frequency of carbonated beverages: Never Frequency of alcoholic beverages: Never Frequency of full sugar beverages (juices/sweet teas..etc): Never Frequency of dining out meals: Rarely (1 - 2 times per week) Physical Activity: Physical conditions limiting activity (injury or chronic condition): no Are you endorsing in any routine exercise?: no READINESS TO LEARN Cognitive ability: Alert and oriented Motivation to learn: Eager Family support: Unable to assess - Family not present Instruction provided to: Patient Patient learns best by: Multiple Methods Factors affecting learning: Unable to assess Physical limitations affecting learning: None Nutrition Diagnosis: Overweight/obesity related to nutrition knowledge deficit as evidenced by BMI above normative range for age and gender, Inadequate physical activity for weight loss . Nutrition Intervention: Start to follow meal guidelines provided and work toward goals outlined below. Nutrition Monitoring AND Evaluation: Monthly supervised wt loss to evaluate weight loss efforts with patient protein goal of 60-90g in addition to requirements from nutrition checklist provided by Dietitian during visit and sent via [employer] message. Required months of supervised weight loss per insurance: per [employer] M[employer] OPERATOR notes The setting was a shared nutrition appointment in which the patient was seen individually with group observers. Consent to be seen in a group setting was obtained virtually. Goals reviewed and outlined below. [facility] Patient agreement was reviewed and Poly Brendan rAmando received a copy of the patient agreement. The patient is aware by receiving this agreement, this accepts their understanding of the agreement and that surgery may not be recommended for medical and behavorial health reasons. Goals: Goals formal exercise 5-7x/week as tolerated, goal of 30 minutes OR 150 minutes of activity per week aim for 3 meals or 5-6 small meals per day with a protein source - can use 1 protein shake as 1 meal replacment journal daily and bring to all appointments Total time in direct patient contact = 50 min. Greater than 50% of the time was spent in counseling and/or coordination of care. Kaya Mcdaniels RD This note was generated using voice recognition technology and may contain grammatical errors. [facility] 12-17-2024 Note HNO ID: [id number] Author: EBONY BARRIOS MD Service: ? Author Type: Physician Type: Progress Notes Filed: 12/17/2024 13:43 Note Text: BARIATRIC SURGERY NEW PATIENT CONSULTATION HISTORY AND PHYSICAL Date: December 17, 2024 Time: 1:08 PM Poly Armando is a 29 year old year old female with obesity (Body mass index is 44.64 kg/m?.), NAFLD, pre-diabetes (metformin), HTN (Propranolol), tachycardia, GERD, depression and anxiety (pristiq), seizures (last 2017; no meds), hidradenitis suppurativa who presents to the clinic today for consideration of bariatric surgery. Surgical consultation was requested by the patient's referring provider, Wilson Wharton APRN. A copy of this consultation note will be provided to the requesting physician(s) by way of shared medical record or letter via [place] mail. This patient has struggled with weight related concerns starting around 2018 when her son was diagnosed with Leukemia and she let herself go. Prior to that she had her first seizure in 2012 and was doing well from that standpoint, but in 2018 her seizures started again. They have attempted weight loss with diet and exercise programs and medications without correction success. They attribute weight gain to the factors mentioned above. The heaviest adult weight they can recall was 252 pounds and the healthiest adult weight they can recall was 145 pounds after her first in 2013. Her weight today is 252 pounds. Her goal is to be healthier and get off of medications. She endorses a long history of GERD symptoms - starting during her second . She has symptoms sometimes when drinking only water. She takes Tums, OTC Zantac, and was recently started on Pepcid 40 mg daily - she feels this medication is helping her symptoms. She occasionally uses NSAIDs - not even 3 times per month She denies any personal history of DVT/PE, SC/CAD, TIA/CVA. She was diagnosed with pre-diabetes about 2 years ago and has been Metformin since that time. She started experiencing abdominal pain and gastritis-like symptoms along with bloating. She noticed that she was passing whole pills. She underwent many exams and workup, including EGD. Pathology was noted to demonstrate intraepithelial lymphocytes, which can be secondary to Losartan use. She was therefore changed from Losartan to Propranolol. She has daily episodes of dizziness for which she has undergone workup for vertigo. She states that workup demonstrated no cause of her symptoms. She does admit to not drinking enough fluids during the day. Social: denies x 3; denies SHS exposure PSHx: x 3; TL PAST MEDICAL HISTORY Diagnosis Date Headaches NAFLD (nonalcoholic fatty liver disease) Prediabetes Seizure (HCC) Uterine fibroid PAST SURGICAL HISTORY Procedure Laterality Date ANESTH, SECTION 2012,2014,2016 LIGATE FALLOPIAN TUBE FAMILY HISTORY Problem Relation Age of Onset DVT Mother Hypertension Mother Hypertension Father Diabetes Father Cancer Son Colon Cancer Maternal Aunt Social History Tobacco Use Smoking status: Never Smokeless tobacco: Never Vaping Use Vaping status: Never Used Substance Use Topics Alcohol use: Not Currently Drug use: Never Current Outpatient Medications Medication Sig propranolol ER (INDERAL LA) 160 mg Cs24 Take 1 capsule by mouth once daily. famotidine (PEPCID) 40 mg tablet Take 1 tablet by mouth once daily. metFORMIN (GLUCOPHAGE) 500 mg tablet Take 1 tablet by mouth two times a day with meals. desvenlafaxine ER (PRISTIQ) 100 mg 24 hr tablet Take 1 tablet by mouth once daily. No current facility-administered medications for this visit. ALLERGIES Allergen Reactions Lisinopril Intolerance Tape [Adhesive Tape* Rash Review of Systems Constitutional: Positive for malaise/fatigue (baseline chronic). Negative for chills, diaphoresis and fever. HENT: Negative for congestion, hearing loss, nosebleeds, sinus pain, sore throat and tinnitus. Eyes: Negative for blurred vision, double vision, pain and redness. Respiratory: Negative for cough, hemoptysis, sputum production, shortness of breath and wheezing. Cardiovascular: Positive for palpitations. Negative for chest pain, orthopnea, leg swelling and PND. Gastrointestinal: Positive for heartburn. Negative for abdominal pain, blood in stool, constipation, diarrhea, nausea and vomiting. Genitourinary: Negative for dysuria, frequency, hematuria and urgency. Musculoskeletal: Negative for back pain, falls, joint pain, myalgias and neck pain. Skin: Negative for itching and rash. Neurological: Positive for dizziness. Negative for speech change, focal weakness, seizures, loss of consciousness, weakness and headaches. Endo/Heme/Allergies: Does not bruise/bleed easily. Psychiatric/Behavioral: Positive for depression. Negative for hallucinations, memory loss, substance abuse and suicidal ideas. The pa (more content not included)... [facility] 12-17-2024 History of Presen t illness Narrative BARIATRIC SURGERY NEW PATIENT CONSULTATION HISTORY AND PHYSICAL Date: December 17, 2024 Time: 1:08 PM Poly Armando is a 29 year old year old female with obesity (Body mass index is 44.64 kg/m .), NAFLD, pre-diabetes (metformin), HTN (Propranolol), tachycardia, GERD, depression and anxiety (pristiq), seizures (last 2017; no meds), hidradenitis suppurativa who presents to the clinic today for consideration of bariatric surgery. Surgical consultation was requested by the patient's referring provider, Wilson Wharton APRN. A copy of this consultation note will be provided to the requesting physician(s) by way of shared medical record or letter via [place] mail. This patient has struggled with weight related concerns starting around 2018 when her son was diagnosed with Leukemia and she let herself go. Prior to that she had her first seizure in 2012 and was doing well from that standpoint, but in 2018 her seizures started again. They have attempted weight loss with diet and exercise programs and medications without correction success. They attribute weight gain to the factors mentioned above. The heaviest adult weight they can recall was 252 pounds and the healthiest adult weight they can recall was 145 pounds after her first in 2013. Her weight today is 252 pounds. Her goal is to be healthier and get off of medications. She endorses a long history of GERD symptoms - starting during her second . She has symptoms sometimes when drinking only water. She takes Tums, OTC Zantac, and was recently started on Pepcid 40 mg daily - she feels this medication is helping her symptoms. She occasionally uses NSAIDs - not even 3 times per month She denies any personal history of DVT/PE, SC/CAD, TIA/CVA. She was diagnosed with pre-diabetes about 2 years ago and has been Metformin since that time. She started experiencing abdominal pain and gastritis-like symptoms along with bloating. She noticed that she was passing whole pills. She underwent many exams and workup, including EGD. Pathology was noted to demonstrate intraepithelial lymphocytes, which can be secondary to Losartan use. She was therefore changed from Losartan to Propranolol. She has daily episodes of dizziness for which she has undergone workup for vertigo. She states that workup demonstrated no cause of her symptoms. She does admit to not drinking enough fluids during the day. Social: denies x 3; denies SHS exposure PSHx: x 3; TL PAST MEDICAL HISTORY Diagnosis Date Headaches NAFLD (nonalcoholic fatty liver disease) Prediabetes Seizure (HCC) Uterine fibroid PAST SURGICAL HISTORY Procedure Laterality Date ANESTH, SECTION 2012,2014,2016 LIGATE FALLOPIAN TUBE FAMILY HISTORY Problem Relation Age of Onset DVT Mother Hypertension Mother Hypertension Father Diabetes Father Cancer Son Colon Cancer Maternal Aunt Social History Tobacco Use Smoking status: Never Smokeless tobacco: Never Vaping Use Vaping status: Never Used Substance Use Topics Alcohol use: Not Currently Drug use: Never Current Outpatient Medications Medication Sig propranolol ER (INDERAL LA) 160 mg Cs24 Take 1 capsule by mouth once daily. famotidine (PEPCID) 40 mg tablet Take 1 tablet by mouth once daily. metFORMIN (GLUCOPHAGE) 500 mg tablet Take 1 tablet by mouth two times a day with meals. desvenlafaxine ER (PRISTIQ) 100 mg 24 hr tablet Take 1 tablet by mouth once daily. No current facility-administered medications for this visit. ALLERGIES Allergen Reactions Lisinopril Intolerance Tape [Adhesive Tape* Rash Review of Systems Constitutional: Positive for malaise/fatigue (baseline chronic). Negative for chills, diaphoresis and fever. HENT: Negative for congestion, hearing loss, nosebleeds, sinus pain, sore throat and tinnitus. Eyes: Negative for blurred vision, double vision, pain and redness. Respiratory: Negative for cough, hemoptysis, sputum production, shortness of breath and wheezing. Cardiovascular: Positive for palpitations. Negative for chest pain, orthopnea, leg swelling and PND. Gastrointestinal: Positive for heartburn. Negative for abdominal pain, blood in stool, constipation, diarrhea, nausea and vomiting. Genitourinary: Negative for dysuria, frequency, hematuria and urgency. Musculoskeletal: Negative for back pain, falls, joint pain, myalgias and neck pain. Skin: Negative for itching and rash. Neurological: Positive for dizziness. Negative for speech change, focal weakness, seizures, loss of consciousness, weakness and headaches. Endo/Heme/Allergies: Does not bruise/bleed easily. Psychiatric/Behavioral: Positive for depression. Negative for hallucinations, memory loss, substance abuse and suicidal ideas. The patient is nervous/anxious. The patient does not have insomnia. Physical Exam Vitals reviewed. Constitutional: Appearance: Normal appearance. She is obese. HENT: Head: Normocephalic and atraumatic. Nose: Nose normal. Eyes: General: No scleral icterus. Extraocular Movements: Extraocular movements intact. Conjunctiva/sclera: Conjunctivae normal. Pupils: Pupils are equal, round, and reactive to light. Cardiovascular: Rate and Rhythm: Normal rate. Pulmonary: Effort: Pulmonary effort is normal. No respiratory distress. Skin: General: Skin is warm and dry. Coloration: Skin is not jaundiced or pale. Neurological: General: No focal deficit present. Mental Status: She is alert and oriented to person, place, and time. Psychiatric: Mood and Affect: Mood normal. Behavior: Behavior normal. Further Work-up: 1st of 6 required months Procedure: RYGB EGD: 10/2024 - small hiatal hernia Pathology: Duodenum, biopsy: Duodenal mucosa with an intact villous architecture and intraepithelial lymphocytosis - can be associated with Losartan. Stomach, antrum, biopsy: Mild reactive gastropathy. No intestinal metaplasia or morphologic evidence of Helicobacter pylori organisms. Gastroesophageal junction, biopsy: Hyperplastic squamous esophageal mucosa with reactive epithelial changes and ulcer. No morphologic evidence of fungal organisms or viral cytopathic effect. Upper GI: defer to EGD Sleep Study: defer to pulmonology RUQ US: 08/02/24 - hepatic steatosis HIDA: normal GB EF CT abd/pelvis (11/05/23): WNL aside from left renal stone CXR: EKG: Labs: Nicotine: ordered today Toxicology: ordered today Consultations: pulm and cards placed Evaluations Psychology: on-going Nutrition: on-going Risk Calculator: VTE Risk: TBD ISS Score: pre-DM Adverse Events Score: TBD Prescriptions Required: - Anti-reflux: - Lovenox: - Tylenol: - Actigall: Plan IMPRESSION: Poly Armando is a 29 year old year old female who presents for consideration of bariatric surgery (Body mass index is 44.64 kg/m .). She does meet the criteria for a surgical weight loss procedure according to NIH guidelines. The plan of treatment for Poly is to continue with the consultations and tests ordered today in hopes of qualifying for pre-operative clearance for bariatric surgery. She is interested in: Joan-En-Y Gastric Bypass ASSESSMENT/PLAN: 1. Class 3 severe obesity with serious comorbidity and body mass index (BMI) of 40.0 to 44.9 in adult, unspecified obesity type (HCC) - ICD9: 278.01, V85.41, ICD10: E66.813, E66.01, Z68.41 (primary diagnosis) - Today we discussed the bariatric surgical options available to them. We discussed the risks and benefits associated with both the sleeve gastrectomy and joan-en-y gastric bypass. At this time they are open to either procedure, but is most interested in the RYGB. We discussed the possible risks/complications associated with gastric bypass - specifically the risk of marginal ulcer formation in the setting of exposure to ulcerogenic substances. All questions and concerns were addressed. They will complete all required workup and then follow up with me in clinic for formal consenting. - CONSULT TO CARDIOLOGY - CONSULT TO PULMONARY MEDICINE - NICOTINE & METAB, UR - TOXICOLOGY SCREEN, ROUTINE URINE - THYROID STIMULATING HORMONE 2. NAFLD (nonalcoholic fatty liver disease) - ICD9: 571.8, ICD10: K76.0 - Continue current lifestyle and dietary modifications 3. Pre-diabetes - ICD9: 790.29, ICD10: R73.03 - Continue current medical management 4. Seizure (HCC) - ICD9: 780.39, ICD10: R56.9 - Continue current medical management - no current medications 5. Hypertension, unspecified type - ICD9: 401.9, ICD10: I10 - Continue current medical management - CONSULT TO CARDIOLOGY 6. Tachycardia - ICD9: 785.0, ICD10: R00.0 - Continue current medical management - CONSULT TO CARDIOLOGY Nutrition Counseling Practice these: - Eat 3 meals daily--can use approved/recommended protein shake as 1 meal replacement (should be <200 calories, 20-30g protein, <5g added sugar) - Keep a food journal 5-7x/week (consider POI or OPE [employer] sandrine) and demonstrate meeting protein goal (60-90g protein for females, 70-105g protein for males)- Lean meats, fish, low fat dairy - cottage cheese, Portuguese yogurt, light yogurt, cheese, ricotta cheese, nuts, peanut butter, beans/legumes. Eat protein first at all meals. and 64oz of caffeine-free, carbonation-free fluids at least 5 days per week - engage in formal, planned exercise 5x/week for 30 minutes of cardiovascular activity OR 150+ minutes of cardiovascular activity per week - eliminate all caffeine, carbonation, alcohol and sugar-containing beverages from diet --consider sugar-free drink mixes, water, decaf coffee and tea - Separate eating and drinking by 30 minutes - Chew your food 20-30x per bite - Sip beverages slowly--no guzzling or gulping Information regarding probable and potential postoperative complications, dietary and medical postoperative limitations, and potential cosmetic sequelae has been received by individual. Ebony Barrios MD Advanced Laparoscopic and Bariatric Surgery Medical Decision Making: Problems: Moderate: 2+ stable chronic illnesses Data: Unique test(s) ordered: 3+ Discussed management or test w/ external physician/QHCP/source Risk: High: Decision on elective major surgery w/ risk factors Medical Decision Making Level: 5 - High documented in this encounter [facility] 12-17-2024 Telephone encounter Note Artem Info Packet sent to pt via [facility]. Roverto Jones RN, BSN Bariatric Form Stripper [facility] 12-17-2024 Miscellaneous Notes Artem Info Packet sent to pt via [facility]. Roverto Jones RN, BSN Bariatric Form Stripper documented in this encounter [facility] 12-09-2024 Telephone encounter Note Insurance Verification Insurance Company: [employer] Provider Phone #: [phone] Effective Date: 08/24/21 Call Reference #: WebsiteBenefits Months of Wt Loss: 6 Consecutive: 6 Months of Weight History:6 Obesity Medicine Coverage: yes COVERAGE: REVISION-yes SLEEVE-yes RNY/BYPASS-yes TIFFANIE/DS-yes REQUIREMENTS: Pulmonary Clearance: yes Cardiac Clearance: yes Nicotine Testing: yes Drug Testing: yes TSH Testing: yes If Female patient, is test required: BMI > 40 7 office visits In Network %-80 Deductible-400 OOP Max-2500 Surgeries per life-1 [facility]: Martin Provider: Sophie [facility] 12-09-2024 Miscellaneous Notes Insurance Verification Insurance Company: [employer] Provider Phone #: [phone] Effective Date: 08/24/21 Call Reference #: WebsiteBenefits Months of Wt Loss: 6 Consecutive: 6 Months of Weight History:6 Obesity Medicine Coverage: yes COVERAGE: REVISION-yes SLEEVE-yes RNY/BYPASS-yes TIFFANIE/DS-yes REQUIREMENTS: Pulmonary Clearance: yes Cardiac Clearance: yes Nicotine Testing: yes Drug Testing: yes TSH Testing: yes If Female patient, is test required: BMI > 40 7 office visits In Network %-80 Deductible-400 OOP Max-2500 Surgeries per life-1 [facility]: Martin ProviderShanita Barrios documented in this encounter [facility] 11-28-2024 Note HNO ID: [id number] Author: WILSON WHARTON APRN.BOOM MASTER Service: ? Author Type: Nurse Practitioner Type: Progress Notes Filed: 11/28/2024 09:44 Note Text: SUBJECTIVE Poly Armando is a 29 year old female here today for a check up on her medical problems. Chief Complaint Patient presents with: Recheck HPI Poly Armando is a 29 year old female.She is an established patient. She presents today for routine follow up. Accompanied by her . Issues with RUQ abdominal pain. Gallbladder workup negative. Seen with GI. EGD done and noted a small hiatal hernia. Biopsy showed inflammation and increased lymphocytosis. GI suspected possibly from her losartan? Stool testing negative. Celiac panel negative. Still with stomach issues. Pelvic pressure and RUQ pain. Still working on weight loss. Has been active and eating healthy. Tried metformin, phentermine, wellbutrin in the past. Interested in discussing weight loss surgical options, she has chronic conditions of FREY and htn. Her medications were reviewed today and her list is now up to date. Medications Current Outpatient Medications Medication Sig desvenlafaxine ER (PRISTIQ) 100 mg 24 hr tablet Take 1 tablet by mouth once daily. propranolol ER (INDERAL LA) 160 mg Cs24 Take 1 capsule by mouth once daily. famotidine (PEPCID) 40 mg tablet Take 1 tablet by mouth once daily. metFORMIN (GLUCOPHAGE) 500 mg tablet Take 1 tablet by mouth two times a day with meals. No current facility-administered medications for this visit. ALLERGIES Allergen Reactions Lisinopril Intolerance Tape [Adhesive Tape* Rash ACTIVE PROBLEM LIST Elevated Heart Rate With Elevated Blood Pressure and Diagnosis of Hypertension - 01/20/2022 Racing Heart Beat - 01/18/2022 Robert (Generalized Anxiety Disorder) - 11/18/2021 Hypertension, Essential - 11/18/2021 Comment: Hypertensive emergency or severe asymptomatic hypertension absent. No evidence of target organ damage. Lifestyle: never smoker; no use of EtOH Diet: she cooks at home; lots of pasta; she enjoys vegetables and fruits Exercise: no regimen; maybe 1 walk a day with the dogs Hidradenitis Suppurativa - 11/18/2021 Acne Vulgaris - 11/18/2021 Lymph Node Enlargement - 11/18/2021 Generalized Seizures (Hcc) - 03/03/2021 Tension Headaches - 03/03/2021 Headache, Rebound - 03/03/2021 Shortening, Leg, Congenital, Left - 01/04/2021 Scoliosis Concern - 01/04/2021 Seizure Disorder (Hcc) - 01/04/2021 Migraine Without Aura, Not Intractable, With Status Migrainosus - 01/04/2021 Obesity, Class III, BMI >= 40 - 01/03/2021 Social History Tobacco Use Smoking status: Never Smokeless tobacco: Never Vaping Use Vaping status: Never Used Substance Use Topics Alcohol use: Not Currently Drug use: Never Review of Systems Respiratory: Negative. Cardiovascular: Negative. Gastrointestinal: Positive for abdominal pain. OBJECTIVE BP 118/84 Pulse 72 Wt 248 lb 10.9 oz (112.8kg) SpO2 98% LMP 10/31/2024 Physical Exam Vitals and nursing note reviewed. Constitutional: General: She is awake. She is not in acute distress. Appearance: Normal appearance. She is well-developed and well-groomed. She is not ill-appearing, toxic-appearing or diaphoretic. HENT: Head: Normocephalic. Right Ear: External ear normal. Left Ear: External ear normal. Nose: Nose normal. Eyes: General: Vision grossly intact. Conjunctiva/sclera: Conjunctivae normal. Pupils: Pupils are equal, round, and reactive to light. Neck: Vascular: No JVD. Trachea: Trachea normal. Cardiovascular: Rate and Rhythm: Normal rate and regular rhythm. Pulses: Normal pulses. Heart sounds: Normal heart sounds. No murmur heard. Pulmonary: Effort: Pulmonary effort is normal. No accessory muscle usage, prolonged expiration or respiratory distress. Breath sounds: Normal breath sounds. Musculoskeletal: Cervical back: Neck supple. Skin: General: Skin is warm and dry. Capillary Refill: Capillary refill takes less than 2 seconds. Neurological: General: No focal deficit present. Mental Status: She is alert and oriented to person, place, and time. Mental status is at baseline. Psychiatric: Attention and Perception: Attention and perception normal. Mood and Affect: Mood and affect normal. Speech: Speech normal. Behavior: Behavior normal. Behavior is cooperative. Thought Content: Thought content normal. Cognition and Memory: Cognition and memory normal. Judgment: Judgment normal. ASSESSMENT/PLAN: 1. Hypertension, essential - ICD9: 401.9, ICD10: I10 (primary diagnosis) - Controlled - Stop losartan, increase propranolol. - Recommend home blood pressure monitoring, to bring results to next visit - Encouraged sodium restriction, DASH or Mediterranean diet - Recommend regular aerobic exercise - PROPRANOLOL ER 160 MG CAPSULE,24 HR,EXTENDED RELEASE - [facility] - METFORMIN 5 (more content not included)... [facility] 11-28-2024 History of Presen t illness Narrative SUBJECTIVE Poly Armando is a 29 year old female here today for a check up on her medical problems. Chief Complaint Patient presents with: Recheck HPI Poly Armando is a 29 year old female.She is an established patient. She presents today for routine follow up. Accompanied by her . Issues with RUQ abdominal pain. Gallbladder workup negative. Seen with GI. EGD done and noted a small hiatal hernia. Biopsy showed inflammation and increased lymphocytosis. GI suspected possibly from her losartan? Stool testing negative. Celiac panel negative. Still with stomach issues. Pelvic pressure and RUQ pain. Still working on weight loss. Has been active and eating healthy. Tried metformin, phentermine, wellbutrin in the past. Interested in discussing weight loss surgical options, she has chronic conditions of FREY and htn. Her medications were reviewed today and her list is now up to date. Medications Current Outpatient Medications Medication Sig desvenlafaxine ER (PRISTIQ) 100 mg 24 hr tablet Take 1 tablet by mouth once daily. propranolol ER (INDERAL LA) 160 mg Cs24 Take 1 capsule by mouth once daily. famotidine (PEPCID) 40 mg tablet Take 1 tablet by mouth once daily. metFORMIN (GLUCOPHAGE) 500 mg tablet Take 1 tablet by mouth two times a day with meals. No current facility-administered medications for this visit. ALLERGIES Allergen Reactions Lisinopril Intolerance Tape [Adhesive Tape* Rash ACTIVE PROBLEM LIST Elevated Heart Rate With Elevated Blood Pressure and Diagnosis of Hypertension - 01/20/2022 Racing Heart Beat - 01/18/2022 Robert (Generalized Anxiety Disorder) - 11/18/2021 Hypertension, Essential - 11/18/2021 Comment: Hypertensive emergency or severe asymptomatic hypertension absent. No evidence of target organ damage. Lifestyle: never smoker; no use of EtOH Diet: she cooks at home; lots of pasta; she enjoys vegetables and fruits Exercise: no regimen; maybe 1 walk a day with the dogs Hidradenitis Suppurativa - 11/18/2021 Acne Vulgaris - 11/18/2021 Lymph Node Enlargement - 11/18/2021 Generalized Seizures (Hcc) - 03/03/2021 Tension Headaches - 03/03/2021 Headache, Rebound - 03/03/2021 Shortening, Leg, Congenital, Left - 01/04/2021 Scoliosis Concern - 01/04/2021 Seizure Disorder (Hcc) - 01/04/2021 Migraine Without Aura, Not Intractable, With Status Migrainosus - 01/04/2021 Obesity, Class III, BMI >= 40 - 01/03/2021 Social History Tobacco Use Smoking status: Never Smokeless tobacco: Never Vaping Use Vaping status: Never Used Substance Use Topics Alcohol use: Not Currently Drug use: Never Review of Systems Respiratory: Negative. Cardiovascular: Negative. Gastrointestinal: Positive for abdominal pain. OBJECTIVE BP 118/84 Pulse 72 Wt 248 lb 10.9 oz (112.8kg) SpO2 98% LMP 10/31/2024 Physical Exam Vitals and nursing note reviewed. Constitutional: General: She is awake. She is not in acute distress. Appearance: Normal appearance. She is well-developed and well-groomed. She is not ill-appearing, toxic-appearing or diaphoretic. HENT: Head: Normocephalic. Right Ear: External ear normal. Left Ear: External ear normal. Nose: Nose normal. Eyes: General: Vision grossly intact. Conjunctiva/sclera: Conjunctivae normal. Pupils: Pupils are equal, round, and reactive to light. Neck: Vascular: No JVD. Trachea: Trachea normal. Cardiovascular: Rate and Rhythm: Normal rate and regular rhythm. Pulses: Normal pulses. Heart sounds: Normal heart sounds. No murmur heard. Pulmonary: Effort: Pulmonary effort is normal. No accessory muscle usage, prolonged expiration or respiratory distress. Breath sounds: Normal breath sounds. Musculoskeletal: Cervical back: Neck supple. Skin: General: Skin is warm and dry. Capillary Refill: Capillary refill takes less than 2 seconds. Neurological: General: No focal deficit present. Mental Status: She is alert and oriented to person, place, and time. Mental status is at baseline. Psychiatric: Attention and Perception: Attention and perception normal. Mood and Affect: Mood and affect normal. Speech: Speech normal. Behavior: Behavior normal. Behavior is cooperative. Thought Content: Thought content normal. Cognition and Memory: Cognition and memory normal. Judgment: Judgment normal. ASSESSMENT/PLAN: 1. Hypertension, essential - ICD9: 401.9, ICD10: I10 (primary diagnosis) - Controlled - Stop losartan, increase propranolol. - Recommend home blood pressure monitoring, to bring results to next visit - Encouraged sodium restriction, DASH or Mediterranean diet - Recommend regular aerobic exercise - PROPRANOLOL ER 160 MG CAPSULE,24 HR,EXTENDED RELEASE - [facility] - METFORMIN 500 MG TABLET 2. ROBERT (generalized anxiety disorder) - ICD9: 300.02, ICD10: F41.1 - PROPRANOLOL ER 160 MG CAPSULE,24 HR,EXTENDED RELEASE 3. Chronic gastritis without bleeding, unspecified gastritis type - ICD9: 535.10, ICD10: K29.50 Trial Pepcid daily. Reviewed work up by GI, EGD results, stool studies, labs. - FAMOTIDINE 40 MG TABLET 4. Nonalcoholic fatty liver disease without nonalcoholic steatohepatitis (FREY) - ICD9: 571.8, ICD10: K76.0 Working on weight loss, interested in surgical options. - [facility] 5. Obesity, Class III, BMI >= 40 - ICD9: 278.01, ICD10: E66.01 See above. - [facility] 6. IFG (impaired fasting glucose) - ICD9: 790.21, ICD10: R73.01 Continue metformin. - METFORMIN 500 MG TABLET Medical Decision Making: Data: Unique test result(s) reviewed: 3+ Risk: Moderate: Drug management Medical Decision Making Level: 4 - Moderate Portions of this note have been entered by ancillary staff. I have reviewed and when necessary edited, so that they are an adequate record of my encounter with this patient Please note that parts of this document were created using voice recognition software and therefore may contain grammatical errors. Patient verbalizes understanding of instructions from today's visit and in agreement with treatment plan. Questions answered. Agrees to call the office if questions, concerns of issues with acute symptoms not improving or if they worsen. See diagnoses and orders for additional plan(s). Allergies and medications were reviewed, list was updated, and refills given if needed. Past medical, surgical, social, and family history reviewed and updated as appropriate. Encouraged proper diet & exercise as well as compliance with taking medications. Age-appropriate health preventative measures were discussed. Return in about 3 months (around 02/28/2025) for Follow up on chronic conditions and medications.. Wilson Wharton APRN-BRIT documented in this encounter [facility] 10-28-2024 Note Formatting of this n ote might be different from the original. The patient received a copy of EGD discharge instructions that contain information for how to contact the physician who performed the procedure and when to seek medical care. [facility] 10-28-2024 Miscellaneous Notes The patient received a copy of EGD discharge instructions that contain information for how to contact the physician who performed the procedure and when to seek medical care. documented in this encounter [facility] 10-28-2024 Attending History and physical note UPDATED PROCEDURAL SEDATION HISTORY AND PHYSICAL EXAMINATION SERVICE DATE: 10/28/2024 SERVICE TIME: 9:29 PHYSICAL EXAM MUST BE COMPLETED ON ADMISSION PROCEDURE: colonoscopy, possible biopsies Procedure Indications: upper abdominal pain The History and Physical (completed in the past 30 days) has been reviewed and the patient has been examined. The contents accurately reflect the patient's condition with the following additions or revisions since the H&P was completed. ASA Class: ASA Class: Patient with severe systemic disease Examination indicates no changes. AIRWAY: Airway Visualization of Uvula: Yes Mouth opening greater than 2 fingerbreadths: Yes Neck Full Range of Motion: Yes LUNGS: Lungs clear to auscultation CARDIAC: Regular rhythm,Regular rate Provisional Diagnosis/Treatment Plan: EGD, possible biopsies Sedation Goal: Moderate This H&P can be found in the Electronic Medical Record. SIGNATURE: Tyra Claros MD PATIENT NAME: Poly Armando DATE: October 28, 2024 TIME: 9:35 AM Source Note - Tyra Claros MD - 10/28/2024 10:30 AM EST Poly Armando is a 29 year old female who presents for Liver Disease (Fatty Liver Disease. Pt also states she has also passed whole pills in her stool. Occasional abdominal pain ). PMHx of NAFLD, seizures, uterine fibroid Patient tells me that she dealing with several GI symptoms. Notes that she has been dealing with indigestion and gas production. Feeling acid up into her chest. Will occasionally take an OTC antacid. No dysphagia, nausea or vomiting. Has had two separate episodes of RUQ pain that gets so severe. Will get intense bloating with this as well. Appetite is good. Weight is stable. Notes that she is having alternating bowel habits, mostly diarrhea. Will have two episodes of diarrhea and seeing undigested pills in her stools. Will occasionally see food. No rectal bleeding or black stools. No smoking or alcohol use. Aunt had colon cancer. Has two professional tattoos. No IVDU, service, blood transfusions. HIDA 08/14/2024: IMPRESSION: Normal gallbladder ejection fraction. RUQ US 08/02/2024: IMPRESSION: No acute findings. Mild hepatic steatosis. Latest Ref Rng 08/08/2024 Test Result Negative for H. Pylori antigen by EIA Negative for Helicobacter pylori antigen by EIA Latest Ref Rng 07/14/2024 WBC 3.70 - 11.00 k/uL 5.88 RBC 3.90 - 5.20 m/uL 4.54 Hemoglobin 11.5 - 15.5 g/dL 13.0 Hematocrit 36.0 - 46.0 % 40.1 MCV 80.0 - 100.0 fL 88.3 MCH 26.0 - 34.0 pg 28.6 MCHC 30.5 - 36.0 g/dL 32.4 RDW-CV 11.5 - 15.0 % 11.5 Platelet Count 150 - 400 k/uL 250 MPV 9.0 - 12.7 fL 9.2 Neut% % 46.6 Abs Neut (ANC) 1.45 - 7.50 k/uL 2.74 Lymph% % 46.1 Abs Lymph 1.00 - 4.00 k/uL 2.71 [place]% % 5.4 Abs [place] <0.87 k/uL 0.32 Eosin% % 1.2 Abs Eosin <0.46 k/uL 0.07 Baso% % 0.5 Abs Baso <0.11 k/uL 0.03 Immature Gran % % 0.2 IMMATURE GRANS (ABS) <0.10 k/uL <0.03 NRBC /100 WBC 0.0 Absolute nRBC <0.01 k/uL <0.01 DTYPE Auto Protein, Total 6.3 - 8.0 g/dL 7.3 Albumin 3.9 - 4.9 g/dL 4.2 Calcium 8.5 - 10.2 mg/dL 8.8 Bilirubin, Total 0.2 - 1.3 mg/dL 0.2 Alkaline Phosphatase 34 - 123 U/L 73 AST 13 - 35 U/L 14 ALT 7 - 38 U/L 14 Glucose 74 - 99 mg/dL 133 (H) BUN 7 - 21 mg/dL 14 Creatinine 0.58 - 0.96 mg/dL 0.78 Sodium 136 - 144 mmol/L 137 Potassium 3.7 - 5.1 mmol/L 4.0 Chloride 98 - 107 mmol/L 100 CO2 22 - 30 mmol/L 25 Anion Gap 8 - 15 mmol/L 12 eGFR >=60 mL/min/1.73m 106 SHALONDA Negative Negative Legend: (H) High Record Review: [facility] / Outside records reviewed. PAST MEDICAL HISTORY PAST MEDICAL HISTORY Diagnosis Date Headaches NAFLD (nonalcoholic fatty liver disease) Prediabetes Seizure (HCC) Uterine fibroid PAST SURGICAL HISTORY PAST SURGICAL HISTORY Procedure Laterality Date ANESTH, SECTION 2012,2014,2016 LIGATE FALLOPIAN TUBE Allergies: ALLERGIES ALLERGIES Allergen Reactions Lisinopril Intolerance Tape [Adhesive Tape* Rash Medications: CURRENT MEDICATIONS desvenlafaxine ER (PRISTIQ) 100 mg 24 hr tablet Take 1 tablet by mouth once daily. metFORMIN (GLUCOPHAGE) 500 mg tablet Take 1 tablet by mouth two times a day with meals. losartan (COZAAR) 25 mg tablet Take 1 tablet by mouth once daily. propranolol ER (INDERAL LA) 80 mg 24 hr capsule Take 1 capsule by mouth once daily. (Patient not taking: Reported on 10/14/2024) FAMILY HISTORY FAMILY HISTORY Problem Relation Age of Onset DVT Mother Hypertension Mother Hypertension Father Diabetes Father Cancer Son Colon Cancer Maternal Aunt OCCUPATION & MARITAL STATUS Employer And Job Title: None on file Years Of Education Completed: Not specified Marital Status: with 3 children SOCIAL HISTORY Social History Tobacco Use Smoking status: Never Smokeless tobacco: Never Vaping Use Vaping status: Never Used Substance Use Topics Alcohol use: Not Currently Drug use: Never Review of Systems: Review of Systems Gastrointestinal: Gas, Heartburn All other systems reviewed and are negative. Are you taking any blood thinners? No Physical Examination: BP 126/84 Pulse 67 Ht 5' 3 (1.60m) Wt 247 lb 14.4 oz (112.4kg) LMP 07/08/2024 BMI 43.92 kg/(m^2). Physical Exam Constitutional: Appearance: Normal appearance. She is obese. HENT: Head: Normocephalic and atraumatic. Eyes: General: No scleral icterus. Extraocular Movements: Extraocular movements intact. Conjunctiva/sclera: Conjunctivae normal. Pupils: Pupils are equal, round, and reactive to light. Cardiovascular: Rate and Rhythm: Normal rate and regular rhythm. Pulses: Normal pulses. Heart sounds: Normal heart sounds. Pulmonary: Effort: Pulmonary effort is normal. Breath sounds: Normal breath sounds. Abdominal: General: Abdomen is flat. Bowel sounds are normal. Palpations: Abdomen is soft. Tenderness: There is no abdominal tenderness. Musculoskeletal: General: Normal range of motion. Cervical back: Normal range of motion and neck supple. Skin: General: Skin is warm and dry. Coloration: Skin is not jaundiced. Neurological: General: No focal deficit present. Mental Status: She is alert and oriented to person, place, and time. Psychiatric: Mood and Affect: Mood normal. Behavior: Behavior normal. Thought Content: Thought content normal. Judgment: Judgment normal. Assessment/Plan (K76.0) Nonalcoholic fatty liver disease without nonalcoholic steatohepatitis (FREY) (primary encounter diagnosis) (R10.11) Right upper quadrant abdominal pain (K30) Indigestion (R14.0) Bloating (R19.7) Intermittent diarrhea 1. Nonalcoholic fatty liver disease without nonalcoholic steatohepatitis (FREY) -- Discussed fatty liver in detail with patient today. -- Recommend healthy diet, exercise, weight loss and alcohol avoidance to help with fatty liver. -- Consider Fibroscan 2. Right upper quadrant abdominal pain -- Notes two episodes of severe RUQ pain associated with intense bloating. Had normal US, HIDA scan -- Will check Celiac panel -- EGD for further evaluation - CELIAC SCREEN WITH REFLEX; Future - EGD DIAGNOSTIC; Future 3. Indigestion -- Patient with regular indigestion -- Okay to use OTC Pepcid up to 40 mg PRN -- Celiac panel ordered -- EGD for further evaluation Recommend high protein, high fiber diet. Promotion of salivation through oral lozenges/chewing gum Drink plenty of water Avoid NSAIDs (such as Advil, Ibuprofen, Excedrin, Mobic), tobacco, alcohol, carbonated beverages, caffeine, chocolate, tomato based sauces, spicy/fatty foods, and peppermint Avoid eating less than 3 hours before bed. Elevate the head of the bed 6 inches, or invest in a wedge pillow. Laying on left side with head elevated may help alleviate reflux symptoms. - CELIAC SCREEN WITH REFLEX; Future - EGD DIAGNOSTIC; Future 4. Bloating -- Notes significant bloating with intermittent diarrhea. -- Will check O&P, fecal fat, pancreatic elastase, calprotectin -- Recommend restarting probiotics -- Celiac panel ordered -- EGD for further evaluation - CRYPTOSPORIDIUM AND GIARDIA ANTIGENS BY EIA - FAT, FECAL QUAL - PANC ELASTASE, FECAL - CALPROTECTIN,FECAL - CELIAC SCREEN WITH REFLEX; Future - EGD DIAGNOSTIC; Future 5. Intermittent diarrhea -- Notes significant bloating with intermittent diarrhea. Seeing undigested pills, food in her stools at times. -- Will check O&P, fecal fat, pancreatic elastase, calprotectin -- Recommend restarting probiotics -- Celiac panel ordered - CRYPTOSPORIDIUM AND GIARDIA ANTIGENS BY EIA - FAT, FECAL QUAL - PANC ELASTASE, FECAL - CALPROTECTIN,FECAL - CELIAC SCREEN WITH REFLEX; Future Discussion/Plan/Recommendations: I have discussed the above with the patient. I have offered EGD, possible biopsies I have explained the procedure to the patient. I have counseled the patient as to the risks of the procedure, including but not limited to: infection, bleeding, injury to any intrabdominal organs such as liver/spleen, perforation of the GI tract, inability to complete the procedure, complications of anesthesia, etc. - the patient understands. The patient wishes to proceed. I have answered all questions to the patient s satisfaction and the patient has no further questions. [facility] Work Phone: 10-28-2024 History and physical note Poly Armando is a 29 year old female who presents for Liver Disease (Fatty Liver Disease. Pt also states she has also passed whole pills in her stool. Occasional abdominal pain ). PMHx of NAFLD, seizures, uterine fibroid Patient tells me that she dealing with several GI symptoms. Notes that she has been dealing with indigestion and gas production. Feeling acid up into her chest. Will occasionally take an OTC antacid. No dysphagia, nausea or vomiting. Has had two separate episodes of RUQ pain that gets so severe. Will get intense bloating with this as well. Appetite is good. Weight is stable. Notes that she is having alternating bowel habits, mostly diarrhea. Will have two episodes of diarrhea and seeing undigested pills in her stools. Will occasionally see food. No rectal bleeding or black stools. No smoking or alcohol use. Aunt had colon cancer. Has two professional tattoos. No IVDU, service, blood transfusions. HIDA 08/14/2024: IMPRESSION: Normal gallbladder ejection fraction. RUQ US 08/02/2024: IMPRESSION: No acute findings. Mild hepatic steatosis. Latest Ref Rng 08/08/2024 Test Result Negative for H. Pylori antigen by EIA Negative for Helicobacter pylori antigen by EIA Latest Ref Rng 07/14/2024 WBC 3.70 - 11.00 k/uL 5.88 RBC 3.90 - 5.20 m/uL 4.54 Hemoglobin 11.5 - 15.5 g/dL 13.0 Hematocrit 36.0 - 46.0 % 40.1 MCV 80.0 - 100.0 fL 88.3 MCH 26.0 - 34.0 pg 28.6 MCHC 30.5 - 36.0 g/dL 32.4 RDW-CV 11.5 - 15.0 % 11.5 Platelet Count 150 - 400 k/uL 250 MPV 9.0 - 12.7 fL 9.2 Neut% % 46.6 Abs Neut (ANC) 1.45 - 7.50 k/uL 2.74 Lymph% % 46.1 Abs Lymph 1.00 - 4.00 k/uL 2.71 [place]% % 5.4 Abs [place] <0.87 k/uL 0.32 Eosin% % 1.2 Abs Eosin <0.46 k/uL 0.07 Baso% % 0.5 Abs Baso <0.11 k/uL 0.03 Immature Gran % % 0.2 IMMATURE GRANS (ABS) <0.10 k/uL <0.03 NRBC /100 WBC 0.0 Absolute nRBC <0.01 k/uL <0.01 DTYPE Auto Protein, Total 6.3 - 8.0 g/dL 7.3 Albumin 3.9 - 4.9 g/dL 4.2 Calcium 8.5 - 10.2 mg/dL 8.8 Bilirubin, Total 0.2 - 1.3 mg/dL 0.2 Alkaline Phosphatase 34 - 123 U/L 73 AST 13 - 35 U/L 14 ALT 7 - 38 U/L 14 Glucose 74 - 99 mg/dL 133 (H) BUN 7 - 21 mg/dL 14 Creatinine 0.58 - 0.96 mg/dL 0.78 Sodium 136 - 144 mmol/L 137 Potassium 3.7 - 5.1 mmol/L 4.0 Chloride 98 - 107 mmol/L 100 CO2 22 - 30 mmol/L 25 Anion Gap 8 - 15 mmol/L 12 eGFR >=60 mL/min/1.73m 106 SHALONDA Negative Negative Legend: (H) High Record Review: [facility] / Outside records reviewed. PAST MEDICAL HISTORY PAST MEDICAL HISTORY Diagnosis Date Headaches NAFLD (nonalcoholic fatty liver disease) Prediabetes Seizure (HCC) Uterine fibroid PAST SURGICAL HISTORY PAST SURGICAL HISTORY Procedure Laterality Date ANESTH, SECTION 2012,2014,2016 LIGATE FALLOPIAN TUBE Allergies: ALLERGIES ALLERGIES Allergen Reactions Lisinopril Intolerance Tape [Adhesive Tape* Rash Medications: CURRENT MEDICATIONS desvenlafaxine ER (PRISTIQ) 100 mg 24 hr tablet Take 1 tablet by mouth once daily. metFORMIN (GLUCOPHAGE) 500 mg tablet Take 1 tablet by mouth two times a day with meals. losartan (COZAAR) 25 mg tablet Take 1 tablet by mouth once daily. propranolol ER (INDERAL LA) 80 mg 24 hr capsule Take 1 capsule by mouth once daily. (Patient not taking: Reported on 10/14/2024) FAMILY HISTORY FAMILY HISTORY Problem Relation Age of Onset DVT Mother Hypertension Mother Hypertension Father Diabetes Father Cancer Son Colon Cancer Maternal Aunt OCCUPATION & MARITAL STATUS Employer And Job Title: None on file Years Of Education Completed: Not specified Marital Status: with 3 children SOCIAL HISTORY Social History Tobacco Use Smoking status: Never Smokeless tobacco: Never Vaping Use Vaping status: Never Used Substance Use Topics Alcohol use: Not Currently Drug use: Never Review of Systems: Review of Systems Gastrointestinal: Gas, Heartburn All other systems reviewed and are negative. Are you taking any blood thinners? No Physical Examination: BP 126/84 Pulse 67 Ht 5' 3 (1.60m) Wt 247 lb 14.4 oz (112.4kg) LMP 07/08/2024 BMI 43.92 kg/(m^2). Physical Exam Constitutional: Appearance: Normal appearance. She is obese. HENT: Head: Normocephalic and atraumatic. Eyes: General: No scleral icterus. Extraocular Movements: Extraocular movements intact. Conjunctiva/sclera: Conjunctivae normal. Pupils: Pupils are equal, round, and reactive to light. Cardiovascular: Rate and Rhythm: Normal rate and regular rhythm. Pulses: Normal pulses. Heart sounds: Normal heart sounds. Pulmonary: Effort: Pulmonary effort is normal. Breath sounds: Normal breath sounds. Abdominal: General: Abdomen is flat. Bowel sounds are normal. Palpations: Abdomen is soft. Tenderness: There is no abdominal tenderness. Musculoskeletal: General: Normal range of motion. Cervical back: Normal range of motion and neck supple. Skin: General: Skin is warm and dry. Coloration: Skin is not jaundiced. Neurological: General: No focal deficit present. Mental Status: She is alert and oriented to person, place, and time. Psychiatric: Mood and Affect: Mood normal. Behavior: Behavior normal. Thought Content: Thought content normal. Judgment: Judgment normal. Assessment/Plan (K76.0) Nonalcoholic fatty liver disease without nonalcoholic steatohepatitis (FREY) (primary encounter diagnosis) (R10.11) Right upper quadrant abdominal pain (K30) Indigestion (R14.0) Bloating (R19.7) Intermittent diarrhea 1. Nonalcoholic fatty liver disease without nonalcoholic steatohepatitis (FREY) -- Discussed fatty liver in detail with patient today. -- Recommend healthy diet, exercise, weight loss and alcohol avoidance to help with fatty liver. -- Consider Fibroscan 2. Right upper quadrant abdominal pain -- Notes two episodes of severe RUQ pain associated with intense bloating. Had normal US, HIDA scan -- Will check Celiac panel -- EGD for further evaluation - CELIAC SCREEN WITH REFLEX; Future - EGD DIAGNOSTIC; Future 3. Indigestion -- Patient with regular indigestion -- Okay to use OTC Pepcid up to 40 mg PRN -- Celiac panel ordered -- EGD for further evaluation Recommend high protein, high fiber diet. Promotion of salivation through oral lozenges/chewing gum Drink plenty of water Avoid NSAIDs (such as Advil, Ibuprofen, Excedrin, Mobic), tobacco, alcohol, carbonated beverages, caffeine, chocolate, tomato based sauces, spicy/fatty foods, and peppermint Avoid eating less than 3 hours before bed. Elevate the head of the bed 6 inches, or invest in a wedge pillow. Laying on left side with head elevated may help alleviate reflux symptoms. - CELIAC SCREEN WITH REFLEX; Future - EGD DIAGNOSTIC; Future 4. Bloating -- Notes significant bloating with intermittent diarrhea. -- Will check O&P, fecal fat, pancreatic elastase, calprotectin -- Recommend restarting probiotics -- Celiac panel ordered -- EGD for further evaluation - CRYPTOSPORIDIUM AND GIARDIA ANTIGENS BY EIA - FAT, FECAL QUAL - PANC ELASTASE, FECAL - CALPROTECTIN,FECAL - CELIAC SCREEN WITH REFLEX; Future - EGD DIAGNOSTIC; Future 5. Intermittent diarrhea -- Notes significant bloating with intermittent diarrhea. Seeing undigested pills, food in her stools at times. -- Will check O&P, fecal fat, pancreatic elastase, calprotectin -- Recommend restarting probiotics -- Celiac panel ordered - CRYPTOSPORIDIUM AND GIARDIA ANTIGENS BY EIA - FAT, FECAL QUAL - PANC ELASTASE, FECAL - CALPROTECTIN,FECAL - CELIAC SCREEN WITH REFLEX; Future Discussion/Plan/Recommendations: I have discussed the above with the patient. I have offered EGD, possible biopsies I have explained the procedure to the patient. I have counseled the patient as to the risks of the procedure, including but not limited to: infection, bleeding, injury to any intrabdominal organs such as liver/spleen, perforation of the GI tract, inability to complete the procedure, complications of anesthesia, etc. - the patient understands. The patient wishes to proceed. I have answered all questions to the patient s satisfaction and the patient has no further questions. [facility] 10-28-2024 History and physical note UPDATED PROCEDURAL SEDATION HISTORY AND PHYSICAL EXAMINATION SERVICE DATE: 10/28/2024 SERVICE TIME: 9:29 PHYSICAL EXAM MUST BE COMPLETED ON ADMISSION PROCEDURE: colonoscopy, possible biopsies Procedure Indications: upper abdominal pain The History and Physical (completed in the past 30 days) has been reviewed and the patient has been examined. The contents accurately reflect the patient's condition with the following additions or revisions since the H&P was completed. ASA Class: ASA Class: Patient with severe systemic disease Examination indicates no changes. AIRWAY: Airway Visualization of Uvula: Yes Mouth opening greater than 2 fingerbreadths: Yes Neck Full Range of Motion: Yes LUNGS: Lungs clear to auscultation CARDIAC: Regular rhythm,Regular rate Provisional Diagnosis/Treatment Plan: EGD, possible biopsies Sedation Goal: Moderate This H&P can be found in the Electronic Medical Record. SIGNATURE: Tyra Claros MD PATIENT NAME: Poly Armando DATE: October 28, 2024 TIME: 9:35 AM Source Note - Tyra Claros MD - 10/28/2024 10:30 AM EST Poly Armando is a 29 year old female who presents for Liver Disease (Fatty Liver Disease. Pt also states she has also passed whole pills in her stool. Occasional abdominal pain ). PMHx of NAFLD, seizures, uterine fibroid Patient tells me that she dealing with several GI symptoms. Notes that she has been dealing with indigestion and gas production. Feeling acid up into her chest. Will occasionally take an OTC antacid. No dysphagia, nausea or vomiting. Has had two separate episodes of RUQ pain that gets so severe. Will get intense bloating with this as well. Appetite is good. Weight is stable. Notes that she is having alternating bowel habits, mostly diarrhea. Will have two episodes of diarrhea and seeing undigested pills in her stools. Will occasionally see food. No rectal bleeding or black stools. No smoking or alcohol use. Aunt had colon cancer. Has two professional tattoos. No IVDU, service, blood transfusions. HIDA 08/14/2024: IMPRESSION: Normal gallbladder ejection fraction. RUQ US 08/02/2024: IMPRESSION: No acute findings. Mild hepatic steatosis. Latest Ref Rng 08/08/2024 Test Result Negative for H. Pylori antigen by EIA Negative for Helicobacter pylori antigen by EIA Latest Ref Rng 07/14/2024 WBC 3.70 - 11.00 k/uL 5.88 RBC 3.90 - 5.20 m/uL 4.54 Hemoglobin 11.5 - 15.5 g/dL 13.0 Hematocrit 36.0 - 46.0 % 40.1 MCV 80.0 - 100.0 fL 88.3 MCH 26.0 - 34.0 pg 28.6 MCHC 30.5 - 36.0 g/dL 32.4 RDW-CV 11.5 - 15.0 % 11.5 Platelet Count 150 - 400 k/uL 250 MPV 9.0 - 12.7 fL 9.2 Neut% % 46.6 Abs Neut (ANC) 1.45 - 7.50 k/uL 2.74 Lymph% % 46.1 Abs Lymph 1.00 - 4.00 k/uL 2.71 [place]% % 5.4 Abs [place] <0.87 k/uL 0.32 Eosin% % 1.2 Abs Eosin <0.46 k/uL 0.07 Baso% % 0.5 Abs Baso <0.11 k/uL 0.03 Immature Gran % % 0.2 IMMATURE GRANS (ABS) <0.10 k/uL <0.03 NRBC /100 WBC 0.0 Absolute nRBC <0.01 k/uL <0.01 DTYPE Auto Protein, Total 6.3 - 8.0 g/dL 7.3 Albumin 3.9 - 4.9 g/dL 4.2 Calcium 8.5 - 10.2 mg/dL 8.8 Bilirubin, Total 0.2 - 1.3 mg/dL 0.2 Alkaline Phosphatase 34 - 123 U/L 73 AST 13 - 35 U/L 14 ALT 7 - 38 U/L 14 Glucose 74 - 99 mg/dL 133 (H) BUN 7 - 21 mg/dL 14 Creatinine 0.58 - 0.96 mg/dL 0.78 Sodium 136 - 144 mmol/L 137 Potassium 3.7 - 5.1 mmol/L 4.0 Chloride 98 - 107 mmol/L 100 CO2 22 - 30 mmol/L 25 Anion Gap 8 - 15 mmol/L 12 eGFR >=60 mL/min/1.73m 106 SHALONDA Negative Negative Legend: (H) High Record Review: [facility] / Outside records reviewed. PAST MEDICAL HISTORY PAST MEDICAL HISTORY Diagnosis Date Headaches NAFLD (nonalcoholic fatty liver disease) Prediabetes Seizure (HCC) Uterine fibroid PAST SURGICAL HISTORY PAST SURGICAL HISTORY Procedure Laterality Date ANESTH, SECTION 2012,2014,2017 LIGATE FALLOPIAN TUBE Allergies: ALLERGIES ALLERGIES Allergen Reactions Lisinopril Intolerance Tape [Adhesive Tape* Rash Medications: CURRENT MEDICATIONS desvenlafaxine ER (PRISTIQ) 100 mg 24 hr tablet Take 1 tablet by mouth once daily. metFORMIN (GLUCOPHAGE) 500 mg tablet Take 1 tablet by mouth two times a day with meals. losartan (COZAAR) 25 mg tablet Take 1 tablet by mouth once daily. propranolol ER (INDERAL LA) 80 mg 24 hr capsule Take 1 capsule by mouth once daily. (Patient not taking: Reported on 10/14/2024) FAMILY HISTORY FAMILY HISTORY Problem Relation Age of Onset DVT Mother Hypertension Mother Hypertension Father Diabetes Father Cancer Son Colon Cancer Maternal Aunt OCCUPATION & MARITAL STATUS Employer And Job Title: None on file Years Of Education Completed: Not specified Marital Status: with 3 children SOCIAL HISTORY Social History Tobacco Use Smoking status: Never Smokeless tobacco: Never Vaping Use Vaping status: Never Used Substance Use Topics Alcohol use: Not Currently Drug use: Never Review of Systems: Review of Systems Gastrointestinal: Gas, Heartburn All other systems reviewed and are negative. Are you taking any blood thinners? No Physical Examination: BP 126/84 Pulse 67 Ht 5' 3 (1.60m) Wt 247 lb 14.4 oz (112.4kg) LMP 07/08/2024 BMI 43.92 kg/(m^2). Physical Exam Constitutional: Appearance: Normal appearance. She is obese. HENT: Head: Normocephalic and atraumatic. Eyes: General: No scleral icterus. Extraocular Movements: Extraocular movements intact. Conjunctiva/sclera: Conjunctivae normal. Pupils: Pupils are equal, round, and reactive to light. Cardiovascular: Rate and Rhythm: Normal rate and regular rhythm. Pulses: Normal pulses. Heart sounds: Normal heart sounds. Pulmonary: Effort: Pulmonary effort is normal. Breath sounds: Normal breath sounds. Abdominal: General: Abdomen is flat. Bowel sounds are normal. Palpations: Abdomen is soft. Tenderness: There is no abdominal tenderness. Musculoskeletal: General: Normal range of motion. Cervical back: Normal range of motion and neck supple. Skin: General: Skin is warm and dry. Coloration: Skin is not jaundiced. Neurological: General: No focal deficit present. Mental Status: She is alert and oriented to person, place, and time. Psychiatric: Mood and Affect: Mood normal. Behavior: Behavior normal. Thought Content: Thought content normal. Judgment: Judgment normal. Assessment/Plan (K76.0) Nonalcoholic fatty liver disease without nonalcoholic steatohepatitis (FREY) (primary encounter diagnosis) (R10.11) Right upper quadrant abdominal pain (K30) Indigestion (R14.0) Bloating (R19.7) Intermittent diarrhea 1. Nonalcoholic fatty liver disease without nonalcoholic steatohepatitis (FREY) -- Discussed fatty liver in detail with patient today. -- Recommend healthy diet, exercise, weight loss and alcohol avoidance to help with fatty liver. -- Consider Fibroscan 2. Right upper quadrant abdominal pain -- Notes two episodes of severe RUQ pain associated with intense bloating. Had normal US, HIDA scan -- Will check Celiac panel -- EGD for further evaluation - CELIAC SCREEN WITH REFLEX; Future - EGD DIAGNOSTIC; Future 3. Indigestion -- Patient with regular indigestion -- Okay to use OTC Pepcid up to 40 mg PRN -- Celiac panel ordered -- EGD for further evaluation Recommend high protein, high fiber diet. Promotion of salivation through oral lozenges/chewing gum Drink plenty of water Avoid NSAIDs (such as Advil, Ibuprofen, Excedrin, Mobic), tobacco, alcohol, carbonated beverages, caffeine, chocolate, tomato based sauces, spicy/fatty foods, and peppermint Avoid eating less than 3 hours before bed. Elevate the head of the bed 6 inches, or invest in a wedge pillow. Laying on left side with head elevated may help alleviate reflux symptoms. - CELIAC SCREEN WITH REFLEX; Future - EGD DIAGNOSTIC; Future 4. Bloating -- Notes significant bloating with intermittent diarrhea. -- Will check O&P, fecal fat, pancreatic elastase, calprotectin -- Recommend restarting probiotics -- Celiac panel ordered -- EGD for further evaluation - CRYPTOSPORIDIUM AND GIARDIA ANTIGENS BY EIA - FAT, FECAL QUAL - PANC ELASTASE, FECAL - CALPROTECTIN,FECAL - CELIAC SCREEN WITH REFLEX; Future - EGD DIAGNOSTIC; Future 5. Intermittent diarrhea -- Notes significant bloating with intermittent diarrhea. Seeing undigested pills, food in her stools at times. -- Will check O&P, fecal fat, pancreatic elastase, calprotectin -- Recommend restarting probiotics -- Celiac panel ordered - CRYPTOSPORIDIUM AND GIARDIA ANTIGENS BY EIA - FAT, FECAL QUAL - PANC ELASTASE, FECAL - CALPROTECTIN,FECAL - CELIAC SCREEN WITH REFLEX; Future Discussion/Plan/Recommendations: I have discussed the above with the patient. I have offered EGD, possible biopsies I have explained the procedure to the patient. I have counseled the patient as to the risks of the procedure, including but not limited to: infection, bleeding, injury to any intrabdominal organs such as liver/spleen, perforation of the GI tract, inability to complete the procedure, complications of anesthesia, etc. - the patient understands. The patient wishes to proceed. I have answered all questions to the patient s satisfaction and the patient has no further questions. Poly Armando is a 29 year old female who presents for Liver Disease (Fatty Liver Disease. Pt also states she has also passed whole pills in her stool. Occasional abdominal pain ). PMHx of NAFLD, seizures, uterine fibroid Patient tells me that she dealing with several GI symptoms. Notes that she has been dealing with indigestion and gas production. Feeling acid up into her chest. Will occasionally take an OTC antacid. No dysphagia, nausea or vomiting. Has had two separate episodes of RUQ pain that gets so severe. Will get intense bloating with this as well. Appetite is good. Weight is stable. Notes that she is having alternating bowel habits, mostly diarrhea. Will have two episodes of diarrhea and seeing undigested pills in her stools. Will occasionally see food. No rectal bleeding or black stools. No smoking or alcohol use. Aunt had colon cancer. Has two professional tattoos. No IVDU, service, blood transfusions. HIDA 08/14/2024: IMPRESSION: Normal gallbladder ejection fraction. RUQ US 08/02/2024: IMPRESSION: No acute findings. Mild hepatic steatosis. Latest Ref Rng 08/08/2024 Test Result Negative for H. Pylori antigen by EIA Negative for Helicobacter pylori antigen by EIA Latest Ref Rng 07/14/2024 WBC 3.70 - 11.00 k/uL 5.88 RBC 3.90 - 5.20 m/uL 4.54 Hemoglobin 11.5 - 15.5 g/dL 13.0 Hematocrit 36.0 - 46.0 % 40.1 MCV 80.0 - 100.0 fL 88.3 MCH 26.0 - 34.0 pg 28.6 MCHC 30.5 - 36.0 g/dL 32.4 RDW-CV 11.5 - 15.0 % 11.5 Platelet Count 150 - 400 k/uL 250 MPV 9.0 - 12.7 fL 9.2 Neut% % 46.6 Abs Neut (ANC) 1.45 - 7.50 k/uL 2.74 Lymph% % 46.1 Abs Lymph 1.00 - 4.00 k/uL 2.71 [place]% % 5.4 Abs [place] <0.87 k/uL 0.32 Eosin% % 1.2 Abs Eosin <0.46 k/uL 0.07 Baso% % 0.5 Abs Baso <0.11 k/uL 0.03 Immature Gran % % 0.2 IMMATURE GRANS (ABS) <0.10 k/uL <0.03 NRBC /100 WBC 0.0 Absolute nRBC <0.01 k/uL <0.01 DTYPE Auto Protein, Total 6.3 - 8.0 g/dL 7.3 Albumin 3.9 - 4.9 g/dL 4.2 Calcium 8.5 - 10.2 mg/dL 8.8 Bilirubin, Total 0.2 - 1.3 mg/dL 0.2 Alkaline Phosphatase 34 - 123 U/L 73 AST 13 - 35 U/L 14 ALT 7 - 38 U/L 14 Glucose 74 - 99 mg/dL 133 (H) BUN 7 - 21 mg/dL 14 Creatinine 0.58 - 0.96 mg/dL 0.78 Sodium 136 - 144 mmol/L 137 Potassium 3.7 - 5.1 mmol/L 4.0 Chloride 98 - 107 mmol/L 100 CO2 22 - 30 mmol/L 25 Anion Gap 8 - 15 mmol/L 12 eGFR >=60 mL/min/1.73m 106 SHALONDA Negative Negative Legend: (H) High Record Review: [facility] / Outside records reviewed. PAST MEDICAL HISTORY PAST MEDICAL HISTORY Diagnosis Date Headaches NAFLD (nonalcoholic fatty liver disease) Prediabetes Seizure (HCC) Uterine fibroid PAST SURGICAL HISTORY PAST SURGICAL HISTORY Procedure Laterality Date ANESTH, SECTION 2012,2014,2017 LIGATE FALLOPIAN TUBE Allergies: ALLERGIES ALLERGIES Allergen Reactions Lisinopril Intolerance Tape [Adhesive Tape* Rash Medications: CURRENT MEDICATIONS desvenlafaxine ER (PRISTIQ) 100 mg 24 hr tablet Take 1 tablet by mouth once daily. metFORMIN (GLUCOPHAGE) 500 mg tablet Take 1 tablet by mouth two times a day with meals. losartan (COZAAR) 25 mg tablet Take 1 tablet by mouth once daily. propranolol ER (INDERAL LA) 80 mg 24 hr capsule Take 1 capsule by mouth once daily. (Patient not taking: Reported on 10/14/2024) FAMILY HISTORY FAMILY HISTORY Problem Relation Age of Onset DVT Mother Hypertension Mother Hypertension Father Diabetes Father Cancer Son Colon Cancer Maternal Aunt OCCUPATION & MARITAL STATUS Employer And Job Title: None on file Years Of Education Completed: Not specified Marital Status: with 3 children SOCIAL HISTORY Social History Tobacco Use Smoking status: Never Smokeless tobacco: Never Vaping Use Vaping status: Never Used Substance Use Topics Alcohol use: Not Currently Drug use: Never Review of Systems: Review of Systems Gastrointestinal: Gas, Heartburn All other systems reviewed and are negative. Are you taking any blood thinners? No Physical Examination: BP 126/84 Pulse 67 Ht 5' 3 (1.60m) Wt 247 lb 14.4 oz (112.4kg) LMP 07/08/2024 BMI 43.92 kg/(m^2). Physical Exam Constitutional: Appearance: Normal appearance. She is obese. HENT: Head: Normocephalic and atraumatic. Eyes: General: No scleral icterus. Extraocular Movements: Extraocular movements intact. Conjunctiva/sclera: Conjunctivae normal. Pupils: Pupils are equal, round, and reactive to light. Cardiovascular: Rate and Rhythm: Normal rate and regular rhythm. Pulses: Normal pulses. Heart sounds: Normal heart sounds. Pulmonary: Effort: Pulmonary effort is normal. Breath sounds: Normal breath sounds. Abdominal: General: Abdomen is flat. Bowel sounds are normal. Palpations: Abdomen is soft. Tenderness: There is no abdominal tenderness. Musculoskeletal: General: Normal range of motion. Cervical back: Normal range of motion and neck supple. Skin: General: Skin is warm and dry. Coloration: Skin is not jaundiced. Neurological: General: No focal deficit present. Mental Status: She is alert and oriented to person, place, and time. Psychiatric: Mood and Affect: Mood normal. Behavior: Behavior normal. Thought Content: Thought content normal. Judgment: Judgment normal. Assessment/Plan (K76.0) Nonalcoholic fatty liver disease without nonalcoholic steatohepatitis (FREY) (primary encounter diagnosis) (R10.11) Right upper quadrant abdominal pain (K30) Indigestion (R14.0) Bloating (R19.7) Intermittent diarrhea 1. Nonalcoholic fatty liver disease without nonalcoholic steatohepatitis (FREY) -- Discussed fatty liver in detail with patient today. -- Recommend healthy diet, exercise, weight loss and alcohol avoidance to help with fatty liver. -- Consider Fibroscan 2. Right upper quadrant abdominal pain -- Notes two episodes of severe RUQ pain associated with intense bloating. Had normal US, HIDA scan -- Will check Celiac panel -- EGD for further evaluation - CELIAC SCREEN WITH REFLEX; Future - EGD DIAGNOSTIC; Future 3. Indigestion -- Patient with regular indigestion -- Okay to use OTC Pepcid up to 40 mg PRN -- Celiac panel ordered -- EGD for further evaluation Recommend high protein, high fiber diet. Promotion of salivation through oral lozenges/chewing gum Drink plenty of water Avoid NSAIDs (such as Advil, Ibuprofen, Excedrin, Mobic), tobacco, alcohol, carbonated beverages, caffeine, chocolate, tomato based sauces, spicy/fatty foods, and peppermint Avoid eating less than 3 hours before bed. Elevate the head of the bed 6 inches, or invest in a wedge pillow. Laying on left side with head elevated may help alleviate reflux symptoms. - CELIAC SCREEN WITH REFLEX; Future - EGD DIAGNOSTIC; Future 4. Bloating -- Notes significant bloating with intermittent diarrhea. -- Will check O&P, fecal fat, pancreatic elastase, calprotectin -- Recommend restarting probiotics -- Celiac panel ordered -- EGD for further evaluation - CRYPTOSPORIDIUM AND GIARDIA ANTIGENS BY EIA - FAT, FECAL QUAL - PANC ELASTASE, FECAL - CALPROTECTIN,FECAL - CELIAC SCREEN WITH REFLEX; Future - EGD DIAGNOSTIC; Future 5. Intermittent diarrhea -- Notes significant bloating with intermittent diarrhea. Seeing undigested pills, food in her stools at times. -- Will check O&P, fecal fat, pancreatic elastase, calprotectin -- Recommend restarting probiotics -- Celiac panel ordered - CRYPTOSPORIDIUM AND GIARDIA ANTIGENS BY EIA - FAT, FECAL QUAL - PANC ELASTASE, FECAL - CALPROTECTIN,FECAL - CELIAC SCREEN WITH REFLEX; Future Discussion/Plan/Recommendations: I have discussed the above with the patient. I have offered EGD, possible biopsies I have explained the procedure to the patient. I have counseled the patient as to the risks of the procedure, including but not limited to: infection, bleeding, injury to any intrabdominal organs such as liver/spleen, perforation of the GI tract, inability to complete the procedure, complications of anesthesia, etc. - the patient understands. The patient wishes to proceed. I have answered all questions to the patient s satisfaction and the patient has no further questions. documented in this encounter [facility] 10-14-2024 Note Addended by: ANTONIA GAGNON on: 10/14/2024 09:17 AM Modules accepted: Orders [facility] 10-14-2024 Miscellaneous Notes Addended by: ANTONIA GAGNON on: 10/14/2024 09:17 AM Modules accepted: Orders Addended by: ANTONIA GAGNON on: 10/14/2024 09:16 AM Modules accepted: Orders documented in this encounter [facility] 10-14-2024 Note Addended by: ANTONIA GAGNON on: 10/14/2024 09:16 AM Modules accepted: Orders [facility] 10-14-2024 Instructions Tricia Garcia PA-C - 10/14/2024 9:01 AM EST -- Start probiotic with at least 15 billion live cultures, 10+ strains -- Drink around 64 oz water daily -- Recommend over the counter Pepcid ( generic is Famotidine ) up to 40 mg as needed for indigestion/heartburn Recommend high protein, high fiber diet. Promotion of salivation through oral lozenges/chewing gum Drink plenty of water Avoid NSAIDs (such as Advil, Ibuprofen, Excedrin, Mobic), tobacco, alcohol, carbonated beverages, caffeine, chocolate, tomato based sauces, spicy/fatty foods, and peppermint Avoid eating less than 3 hours before bed. Elevate the head of the bed 6 inches, or invest in a wedge pillow. Laying on left side with head elevated may help alleviate reflux symptoms. documented in this encounter [facility] 10-14-2024 Note HNO ID: [id number] Author: TRICIA GARCIA PA-C Service: ? Author Type: Physician Poured Wall Foreman Type: Progress Notes Filed: 10/14/2024 09:09 Note Text: CHIEF COMPLAINT: Patient presents with: Liver Disease: Fatty Liver Disease. Pt also states she has also passed whole pills in her stool. Occasional abdominal pain This consult was requested by Wilson Wharton APRN.CNP for an opinion regarding fatty liver. My final recommendations will be communicated to the requesting health care provider by way of the shared medical record for internal providers or letter via the [employer] for external providers. HPI: Poly Armando is a 29 year old female who presents for Liver Disease (Fatty Liver Disease. Pt also states she has also passed whole pills in her stool. Occasional abdominal pain ). PMHx of NAFLD, seizures, uterine fibroid Patient tells me that she dealing with several GI symptoms. Notes that she has been dealing with indigestion and gas production. Feeling acid up into her chest. Will occasionally take an OTC antacid. No dysphagia, nausea or vomiting. Has had two separate episodes of RUQ pain that gets so severe. Will get intense bloating with this as well. Appetite is good. Weight is stable. Notes that she is having alternating bowel habits, mostly diarrhea. Will have two episodes of diarrhea and seeing undigested pills in her stools. Will occasionally see food. No rectal bleeding or black stools. No smoking or alcohol use. Aunt had colon cancer. Has two professional tattoos. No IVDU, service, blood transfusions. HIDA 08/14/2024: IMPRESSION: Normal gallbladder ejection fraction. RUQ US 08/02/2024: IMPRESSION: No acute findings. Mild hepatic steatosis. Latest Ref Rng 08/08/2024 Test Result Negative for H. Pylori antigen by EIA Negative for Helicobacter pylori antigen by EIA Latest Ref Rng 07/14/2024 WBC 3.70 - 11.00 k/uL 5.88 RBC 3.90 - 5.20 m/uL 4.54 Hemoglobin 11.5 - 15.5 g/dL 13.0 Hematocrit 36.0 - 46.0 % 40.1 MCV 80.0 - 100.0 fL 88.3 MCH 26.0 - 34.0 pg 28.6 MCHC 30.5 - 36.0 g/dL 32.4 RDW-CV 11.5 - 15.0 % 11.5 Platelet Count 150 - 400 k/uL 250 MPV 9.0 - 12.7 fL 9.2 Neut% % 46.6 Abs Neut (ANC) 1.45 - 7.50 k/uL 2.74 Lymph% % 46.1 Abs Lymph 1.00 - 4.00 k/uL 2.71 [place]% % 5.4 Abs [place] <0.87 k/uL 0.32 Eosin% % 1.2 Abs Eosin <0.46 k/uL 0.07 Baso% % 0.5 Abs Baso <0.11 k/uL 0.03 Immature Gran % % 0.2 IMMATURE GRANS (ABS) <0.10 k/uL <0.03 NRBC /100 WBC 0.0 Absolute nRBC <0.01 k/uL <0.01 DTYPE Auto Protein, Total 6.3 - 8.0 g/dL 7.3 Albumin 3.9 - 4.9 g/dL 4.2 Calcium 8.5 - 10.2 mg/dL 8.8 Bilirubin, Total 0.2 - 1.3 mg/dL 0.2 Alkaline Phosphatase 34 - 123 U/L 73 AST 13 - 35 U/L 14 ALT 7 - 38 U/L 14 Glucose 74 - 99 mg/dL 133 (H) BUN 7 - 21 mg/dL 14 Creatinine 0.58 - 0.96 mg/dL 0.78 Sodium 136 - 144 mmol/L 137 Potassium 3.7 - 5.1 mmol/L 4.0 Chloride 98 - 107 mmol/L 100 CO2 22 - 30 mmol/L 25 Anion Gap 8 - 15 mmol/L 12 eGFR >=60 mL/min/1.73m? 106 SHALONDA Negative Negative Legend: (H) High Record Review: [facility] / Outside records reviewed. PAST MEDICAL HISTORY Diagnosis Date Headaches NAFLD (nonalcoholic fatty liver disease) Prediabetes Seizure (HCC) Uterine fibroid PAST SURGICAL HISTORY Procedure Laterality Date ANESTH, SECTION 2012,2014,2017 LIGATE FALLOPIAN TUBE Allergies: ALLERGIES Allergen Reactions Lisinopril Intolerance Tape [Adhesive Tape* Rash Medications: desvenlafaxine ER (PRISTIQ) 100 mg 24 hr tablet Take 1 tablet by mouth once daily. metFORMIN (GLUCOPHAGE) 500 mg tablet Take 1 tablet by mouth two times a day with meals. losartan (COZAAR) 25 mg tablet Take 1 tablet by mouth once daily. propranolol ER (INDERAL LA) 80 mg 24 hr capsule Take 1 capsule by mouth once daily. (Patient not taking: Reported on 10/14/2024) FAMILY HISTORY Problem Relation Age of Onset DVT Mother Hypertension Mother Hypertension Father Diabetes Father Cancer Son Colon Cancer Maternal Aunt Employer And Job Title: None on file Years Of Education Completed: Not specified Marital Status: with 3 children Social History Tobacco Use Smoking status: Never Smokeless tobacco: Never Vaping Use Vaping status: Never Used Substance Use Topics Alcohol use: Not Currently Drug use: Never Review of Systems: Review of Systems Gastrointestinal: Gas, Heartburn All other systems reviewed and are negative. Are you taking any blood thinners? No Physical Examination: BP 126/84 Pulse 67 Ht 5' 3 (1.60m) Wt 247 lb 14.4 oz (112.4kg) LMP 07/08/2024 BMI 43.92 kg/(m2). Physical Exam Constitutional: Appearance: Normal appearance. She is obese. HENT: Head: Normocephalic and atraumatic. Eyes: General: No scleral icterus. Extraocular Movements: Extraocular movements intact. Conjunctiva/sclera: Conjunctivae normal. Pupils: Pupils are equal, round, (more content not included)... [facility] 10-14-2024 History of Presen t illness Narrative CHIEF COMPLAINT: Patient presents with: Liver Disease: Fatty Liver Disease. Pt also states she has also passed whole pills in her stool. Occasional abdominal pain This consult was requested by Wilson Wharton APRN.CNP for an opinion regarding fatty liver. My final recommendations will be communicated to the requesting health care provider by way of the shared medical record for internal providers or letter via the [employer] for external providers. HPI: Poly Armando is a 29 year old female who presents for Liver Disease (Fatty Liver Disease. Pt also states she has also passed whole pills in her stool. Occasional abdominal pain ). PMHx of NAFLD, seizures, uterine fibroid Patient tells me that she dealing with several GI symptoms. Notes that she has been dealing with indigestion and gas production. Feeling acid up into her chest. Will occasionally take an OTC antacid. No dysphagia, nausea or vomiting. Has had two separate episodes of RUQ pain that gets so severe. Will get intense bloating with this as well. Appetite is good. Weight is stable. Notes that she is having alternating bowel habits, mostly diarrhea. Will have two episodes of diarrhea and seeing undigested pills in her stools. Will occasionally see food. No rectal bleeding or black stools. No smoking or alcohol use. Aunt had colon cancer. Has two professional tattoos. No IVDU, service, blood transfusions. HIDA 08/14/2024: IMPRESSION: Normal gallbladder ejection fraction. RUQ US 08/02/2024: IMPRESSION: No acute findings. Mild hepatic steatosis. Latest Ref Rng 08/08/2024 Test Result Negative for H. Pylori antigen by EIA Negative for Helicobacter pylori antigen by EIA Latest Ref Rng 07/14/2024 WBC 3.70 - 11.00 k/uL 5.88 RBC 3.90 - 5.20 m/uL 4.54 Hemoglobin 11.5 - 15.5 g/dL 13.0 Hematocrit 36.0 - 46.0 % 40.1 MCV 80.0 - 100.0 fL 88.3 MCH 26.0 - 34.0 pg 28.6 MCHC 30.5 - 36.0 g/dL 32.4 RDW-CV 11.5 - 15.0 % 11.5 Platelet Count 150 - 400 k/uL 250 MPV 9.0 - 12.7 fL 9.2 Neut% % 46.6 Abs Neut (ANC) 1.45 - 7.50 k/uL 2.74 Lymph% % 46.1 Abs Lymph 1.00 - 4.00 k/uL 2.71 [place]% % 5.4 Abs [place] <0.87 k/uL 0.32 Eosin% % 1.2 Abs Eosin <0.46 k/uL 0.07 Baso% % 0.5 Abs Baso <0.11 k/uL 0.03 Immature Gran % % 0.2 IMMATURE GRANS (ABS) <0.10 k/uL <0.03 NRBC /100 WBC 0.0 Absolute nRBC <0.01 k/uL <0.01 DTYPE Auto Protein, Total 6.3 - 8.0 g/dL 7.3 Albumin 3.9 - 4.9 g/dL 4.2 Calcium 8.5 - 10.2 mg/dL 8.8 Bilirubin, Total 0.2 - 1.3 mg/dL 0.2 Alkaline Phosphatase 34 - 123 U/L 73 AST 13 - 35 U/L 14 ALT 7 - 38 U/L 14 Glucose 74 - 99 mg/dL 133 (H) BUN 7 - 21 mg/dL 14 Creatinine 0.58 - 0.96 mg/dL 0.78 Sodium 136 - 144 mmol/L 137 Potassium 3.7 - 5.1 mmol/L 4.0 Chloride 98 - 107 mmol/L 100 CO2 22 - 30 mmol/L 25 Anion Gap 8 - 15 mmol/L 12 eGFR >=60 mL/min/1.73m 106 SHALONDA Negative Negative Legend: (H) High Record Review: [facility] / Outside records reviewed. PAST MEDICAL HISTORY Diagnosis Date Headaches NAFLD (nonalcoholic fatty liver disease) Prediabetes Seizure (HCC) Uterine fibroid PAST SURGICAL HISTORY Procedure Laterality Date ANESTH, SECTION 2012,2014,2016 LIGATE FALLOPIAN TUBE Allergies: ALLERGIES Allergen Reactions Lisinopril Intolerance Tape [Adhesive Tape* Rash Medications: desvenlafaxine ER (PRISTIQ) 100 mg 24 hr tablet Take 1 tablet by mouth once daily. metFORMIN (GLUCOPHAGE) 500 mg tablet Take 1 tablet by mouth two times a day with meals. losartan (COZAAR) 25 mg tablet Take 1 tablet by mouth once daily. propranolol ER (INDERAL LA) 80 mg 24 hr capsule Take 1 capsule by mouth once daily. (Patient not taking: Reported on 10/14/2024) FAMILY HISTORY Problem Relation Age of Onset DVT Mother Hypertension Mother Hypertension Father Diabetes Father Cancer Son Colon Cancer Maternal Aunt Employer And Job Title: None on file Years Of Education Completed: Not specified Marital Status: with 3 children Social History Tobacco Use Smoking status: Never Smokeless tobacco: Never Vaping Use Vaping status: Never Used Substance Use Topics Alcohol use: Not Currently Drug use: Never Review of Systems: Review of Systems Gastrointestinal: Gas, Heartburn All other systems reviewed and are negative. Are you taking any blood thinners? No Physical Examination: BP 126/84 Pulse 67 Ht 5' 3 (1.60m) Wt 247 lb 14.4 oz (112.4kg) LMP 07/08/2024 BMI 43.92 kg/(m^2). Physical Exam Constitutional: Appearance: Normal appearance. She is obese. HENT: Head: Normocephalic and atraumatic. Eyes: General: No scleral icterus. Extraocular Movements: Extraocular movements intact. Conjunctiva/sclera: Conjunctivae normal. Pupils: Pupils are equal, round, and reactive to light. Cardiovascular: Rate and Rhythm: Normal rate and regular rhythm. Pulses: Normal pulses. Heart sounds: Normal heart sounds. Pulmonary: Effort: Pulmonary effort is normal. Breath sounds: Normal breath sounds. Abdominal: General: Abdomen is flat. Bowel sounds are normal. Palpations: Abdomen is soft. Tenderness: There is no abdominal tenderness. Musculoskeletal: General: Normal range of motion. Cervical back: Normal range of motion and neck supple. Skin: General: Skin is warm and dry. Coloration: Skin is not jaundiced. Neurological: General: No focal deficit present. Mental Status: She is alert and oriented to person, place, and time. Psychiatric: Mood and Affect: Mood normal. Behavior: Behavior normal. Thought Content: Thought content normal. Judgment: Judgment normal. Assessment/Plan (K76.0) Nonalcoholic fatty liver disease without nonalcoholic steatohepatitis (FREY) (primary encounter diagnosis) (R10.11) Right upper quadrant abdominal pain (K30) Indigestion (R14.0) Bloating (R19.7) Intermittent diarrhea 1. Nonalcoholic fatty liver disease without nonalcoholic steatohepatitis (FREY) -- Discussed fatty liver in detail with patient today. -- Recommend healthy diet, exercise, weight loss and alcohol avoidance to help with fatty liver. -- Consider Fibroscan 2. Right upper quadrant abdominal pain -- Notes two episodes of severe RUQ pain associated with intense bloating. Had normal US, HIDA scan -- Will check Celiac panel -- EGD for further evaluation - CELIAC SCREEN WITH REFLEX; Future - EGD DIAGNOSTIC; Future 3. Indigestion -- Patient with regular indigestion -- Okay to use OTC Pepcid up to 40 mg PRN -- Celiac panel ordered -- EGD for further evaluation Recommend high protein, high fiber diet. Promotion of salivation through oral lozenges/chewing gum Drink plenty of water Avoid NSAIDs (such as Advil, Ibuprofen, Excedrin, Mobic), tobacco, alcohol, carbonated beverages, caffeine, chocolate, tomato based sauces, spicy/fatty foods, and peppermint Avoid eating less than 3 hours before bed. Elevate the head of the bed 6 inches, or invest in a wedge pillow. Laying on left side with head elevated may help alleviate reflux symptoms. - CELIAC SCREEN WITH REFLEX; Future - EGD DIAGNOSTIC; Future 4. Bloating -- Notes significant bloating with intermittent diarrhea. -- Will check O&P, fecal fat, pancreatic elastase, calprotectin -- Recommend restarting probiotics -- Celiac panel ordered -- EGD for further evaluation - CRYPTOSPORIDIUM AND GIARDIA ANTIGENS BY EIA - FAT, FECAL QUAL - PANC ELASTASE, FECAL - CALPROTECTIN,FECAL - CELIAC SCREEN WITH REFLEX; Future - EGD DIAGNOSTIC; Future 5. Intermittent diarrhea -- Notes significant bloating with intermittent diarrhea. Seeing undigested pills, food in her stools at times. -- Will check O&P, fecal fat, pancreatic elastase, calprotectin -- Recommend restarting probiotics -- Celiac panel ordered - CRYPTOSPORIDIUM AND GIARDIA ANTIGENS BY EIA - FAT, FECAL QUAL - PANC ELASTASE, FECAL - CALPROTECTIN,FECAL - CELIAC SCREEN WITH REFLEX; Future Follow up in office PRN. Recommended to please call office/go to ER if fever, chills, chest pain, SOB, diarrhea, nausea, emesis, worsening abdominal pain, dehydration occurs I spent a total of 20 minutes on the date of the service which included preparing to see the patient, [id number] patient care, completing clinical documentation, obtaining and/or reviewing separately obtained history, performing a medically appropriate examination, counseling and educating the patient/family/caregiver, and ordering medications, tests, or procedures. Tricia Garcia PA-C October 14, 2024 9:03 AM documented in this encounter [facility] 09-08-2024 Miscellaneous Notes The following approved medication requests have been transmitted electronically. Requested Prescriptions Signed Prescriptions Disp Refills desvenlafaxine ER (PRISTIQ) 100 mg 24 hr tablet 90 tablet 1 Sig: Take 1 tablet by mouth once daily. Authorizing Provider: KVNG MURPHY metFORMIN (GLUCOPHAGE) 500 mg tablet 60 tablet 2 Sig: Take 1 tablet by mouth two times a day with meals. Authorizing Provider: KVNG MURPHY MD Patient has been identified by name and date of : Yes Patient phones for refill(s): Requested Prescriptions Pending Prescriptions Disp Refills desvenlafaxine ER (PRISTIQ) 100 mg 24 hr tablet 90 tablet 1 Sig: Take 1 tablet by mouth once daily. metFORMIN (GLUCOPHAGE) 500 mg tablet 60 tablet 2 Sig: Take 1 tablet by mouth two times a day with meals. Date of last office visit in primary care: 08/01/2024 Date of next office visit in primary care: 11/28/2024 Please advise. Thank you. Diana Cano LPN. documented in this encounter [facility] 09-08-2024 Telephone encounter Note The following approved medication requests have been transmitted electronically. Requested Prescriptions Signed Prescriptions Disp Refills desvenlafaxine ER (PRISTIQ) 100 mg 24 hr tablet 90 tablet 1 Sig: Take 1 tablet by mouth once daily. Authorizing Provider: KVNG MURPHY metFORMIN (GLUCOPHAGE) 500 mg tablet 60 tablet 2 Sig: Take 1 tablet by mouth two times a day with meals. Authorizing Provider: KVNG MURPHY, MD [facility] 09-08-2024 Telephone encounter Note Patient has been identified by name and date of : Yes Patient phones for refill(s): Requested Prescriptions Pending Prescriptions Disp Refills desvenlafaxine ER (PRISTIQ) 100 mg 24 hr tablet 90 tablet 1 Sig: Take 1 tablet by mouth once daily. metFORMIN (GLUCOPHAGE) 500 mg tablet 60 tablet 2 Sig: Take 1 tablet by mouth two times a day with meals. Date of last office visit in primary care: 08/01/2024 Date of next office visit in primary care: 11/28/2024 Please advise. Thank you. Diana Cano LPN. [facility] 08-14-2024 History of Presen t illness Narrative RADIOLOGY SERVICE PROGRESS NOTE SERVICE DATE: 08/14/2024 SERVICE TIME: 09:00 AM PATIENT IDENTITY VERIFICATION COMPLETED USING TWO (2) STANDARD IDENTIFIERS: Name and Date of confirmed by patient verbally FALL SCREENING: Has the patient had 2 falls in the last year or 1 fall with injury or currently using an Ambulatory Assistive Device (Walker, Cane, Wheelchair, Crutches, etc.)? No PATIENT GENDER DATA: .female : No status: No ALLERGIES: Reviewed and unchanged MEDICATIONS REVIEWED: No PATIENT RELEVANT IMPLANT DATA REVIEWED: Not Applicable PATIENT PRESENTS WITH AN IMPLANTABLE OR ATTACHED GEOGRAPHIC INFORMATION SYSTEMS ENGINEER: No CREATININE: Creatinine Date Value Ref Range Status 07/14/2024 0.78 0.58 - 0.96 mg/dL Final 11/05/2023 0.83 0.58 - 0.96 mg/dL Final 03/08/2023 0.74 0.50 - 0.90 mg/dL Final Estimated Glomerular Filtration Rate Date Value Ref Range Status 07/14/2024 106 >=60 mL/min/1.73m Final Comment: Estimated Glomerular Filtration Rate (eGFR) is calculated using the 2020 CKD-EPI creatinine equation. This equation utilizes serum creatinine, sex, and age as parameters. The creatinine assay has traceable calibration to isotope dilution-mass spectrometry. Refer to KDIGO guidelines for clinical interpretation. In patients with unstable renal function, e.g. those with acute kidney injury, the eGFR may not accurately reflect actual GFR. eGFR- Date Value Ref Range Status 03/08/2023 > 60 ml/min/1.73m2 Final Comment: eGFR >= 60 Indicates normal kidney function. * eGFR IS AN ESTIMATE * (AFR SELENA = ) (non-AFR AM = NON-) MDRD calculation used in the eGFR should not be used to dose medications. For further limitations of the eGFR please refer to the Physician Website or the National Kidney Disease Education Program website (www.nkdep.nih.gov). P.O.C.T. RESULTS: N/A August 14, [address] PERFORMED: No IV SITE: Ambulatory: A peripheral IV was started in the Right antecubital site with a Angio cath: 24 gauge. POST EXAM PIV STATUS: Discontinued PROCEDURE TYPE: NM INJECT: Hepatobiliary with Gallbladder EF. 5.6 mCi Tc99m CHOLETEC. CCK 2.23 micrograms intravenous at 10:24. ADMINISTRATION TIME: 09:10 PATIENT DISCHARGED TO: Ambulatory patient, left NM department area. Is this a therapy: No A Diagnostic radioactive procedure has taken place, with no further precautions necessary other than routine body substance precautions. More information regarding radiation safety can be found using this link: [email or web address] uclear%[email or web address] df SIGNATURE: RT Jatinder(Anjum) PATIENT NAME: Poly Armando DATE: August 14, 2024 TIME: 1:42 PM PAGER/CONTACT #: documented in this encounter [facility] 08-14-2024 Note HNO ID: [id number] Author: IKER WETZEL RT(R) Service: Nuclear Medicine Author Type: Technologist Type: Progress Notes Filed: 08/14/2024 13:43 Note Text: RADIOLOGY SERVICE PROGRESS NOTE SERVICE DATE: 08/14/2024 SERVICE TIME: 09:00 AM PATIENT IDENTITY VERIFICATION COMPLETED USING TWO (2) STANDARD IDENTIFIERS: Name and Date of confirmed by patient verbally FALL SCREENING: Has the patient had 2 falls in the last year or 1 fall with injury or currently using an Ambulatory Assistive Device (Walker, Cane, Wheelchair, Crutches, etc.)? No PATIENT GENDER DATA: .female : No status: No ALLERGIES: Reviewed and unchanged MEDICATIONS REVIEWED: No PATIENT RELEVANT IMPLANT DATA REVIEWED: Not Applicable PATIENT PRESENTS WITH AN IMPLANTABLE OR ATTACHED GEOGRAPHIC INFORMATION SYSTEMS ENGINEER: No CREATININE: Creatinine Date Value Ref Range Status 07/14/2024 0.78 0.58 - 0.96 mg/dL Final 11/05/2023 0.83 0.58 - 0.96 mg/dL Final 03/08/2023 0.74 0.50 - 0.90 mg/dL Final Estimated Glomerular Filtration Rate Date Value Ref Range Status 07/14/2024 106 >=60 mL/min/1.73m? Final Comment: Estimated Glomerular Filtration Rate (eGFR) is calculated using the 2020 CKD-EPI creatinine equation. This equation utilizes serum creatinine, sex, and age as parameters. The creatinine assay has traceable calibration to isotope dilution-mass spectrometry. Refer to KDIGO guidelines for clinical interpretation. In patients with unstable renal function, e.g. those with acute kidney injury, the eGFR may not accurately reflect actual GFR. eGFR- Date Value Ref Range Status 03/08/2023 > 60 ml/min/1.73m2 Final Comment: eGFR >= 60 Indicates normal kidney function. * eGFR IS AN ESTIMATE * (AFR SELENA = ) (non-AFR AM = NON-) MDRD calculation used in the eGFR should not be used to dose medications. For further limitations of the eGFR please refer to the Physician Website or the National Kidney Disease Education Program website (www.nkdep.nih.gov). P.O.C.T. RESULTS: N/A August 14, [address] PERFORMED: No IV SITE: Ambulatory: A peripheral IV was started in the Right antecubital site with a Angio cath: 24 gauge. POST EXAM PIV STATUS: Discontinued PROCEDURE TYPE: NM INJECT: Hepatobiliary with Gallbladder EF. 5.6 mCi Tc99m CHOLETEC. CCK 2.23 micrograms intravenous at 10:24. ADMINISTRATION TIME: 09:10 PATIENT DISCHARGED TO: Ambulatory patient, left NM department area. Is this a therapy: No A Diagnostic radioactive procedure has taken place, with no further precautions necessary other than routine body substance precautions. More information regarding radiation safety can be found using this link: [email or web address] [email or web address]-% 20Diagnostic%20Nuclear%20Medicin e%20Procedures.pdf SIGNATURE: RT Jatinder(R) PATIENT NAME: Poly Armando DATE: August 14, 2024 TIME: 1:42 PM PAGER/CONTACT #: [facility] 08-04-2024 Miscellaneous Notes Patient has been contacted and scheduled Addended by: WILSON HWARTON on: 08/04/2024 01:32 PM Modules accepted: Orders documented in this encounter [facility] 08-04-2024 Telephone encounter Note Patient has been contacted and scheduled [facility] Work Phone: 08-04-2024 Note Addended by: WILSON WHARTON on: 08/04/2024 01:32 PM Modules accepted: Orders [facility] 08-02-2024 History of Presen t illness Narrative Radiology Service Progress Note PATIENT NAME: Poly Armando DATE OF SERVICE: August 02, 2024 TIME: 10:40 AM PATIENT IDENTITY VERIFICATION COMPLETED USING TWO (2) IDENTIFIERS: Name and Date of confirmed by patient verbally. FALL SCREENING: Has the patient had 2 falls in the last year or 1 fall with injury or currently using an Ambulatory Assistive Device (Walker, Cane, Wheelchair, Crutches, etc.)? No PATIENT GENDER DATA: Female. status: : No status: N/A PATIENT RELEVANT IMPLANT DATA REVIEWED: Not Applicable PATIENT PRESENTS WITH AN IMPLANTABLE OR ATTACHED GEOGRAPHIC INFORMATION SYSTEMS ENGINEER: No RADIOLOGY DEPARTMENT: Ultrasound PERIPHERAL IV DATA: Not applicable SIGNED BY: RT Steven(Anjum) August 02, 2024 10:40 AM documented in this encounter [facility] 08-02-2024 Note HNO ID: [id number] Author: CODIE BOSE RT(R) Service: Radiology Author Type: Technologist Type: Progress Notes Filed: 08/02/2024 10:40 Note Text: Radiology Service Progress Note PATIENT NAME: Poly Armando DATE OF SERVICE: August 02, 2024 TIME: 10:40 AM PATIENT IDENTITY VERIFICATION COMPLETED USING TWO (2) IDENTIFIERS: Name and Date of confirmed by patient verbally. FALL SCREENING: Has the patient had 2 falls in the last year or 1 fall with injury or currently using an Ambulatory Assistive Device (Walker, Cane, Wheelchair, Crutches, etc.)? No PATIENT GENDER DATA: Female. status: : No status: N/A PATIENT RELEVANT IMPLANT DATA REVIEWED: Not Applicable PATIENT PRESENTS WITH AN IMPLANTABLE OR ATTACHED GEOGRAPHIC INFORMATION SYSTEMS ENGINEER: No RADIOLOGY DEPARTMENT: Ultrasound PERIPHERAL IV DATA: Not applicable SIGNED BY: RT Steven(Anjum) August 02, 2024 10:40 AM [facility] 08-01-2024 Note HNO ID: [id number] Author: WILSON WHARTON APRN.BOOM MASTER Service: ? Author Type: Nurse Practitioner Type: Progress Notes Filed: 08/01/2024 13:21 Note Text: SUBJECTIVE Poly Armando is a 29 year old female here today for acute concerns. Chief Complaint Patient presents with: Abdominal Pain: started yesterday aches with some cramping. 1 episode of diarrhea. HPI Poly Armando is a 29 year old female. She is an established patient. Here today for acute concerns of abdominal pain. She reports abdominal pain with an onset of yesterday. Has cramping and x1 episode of diarrhea. Pain is mostly to the RUQ. Pain is constant but worse at sometimes. Prior CT of abd/pelvis done 10/2023 and had punctuate left renal stone, no other issues. Had an episode of pain in October and this feels very similar. Odor to her stool. Took pepto and did not help. No nausea or vomiting and no urinary symptoms. Her medications were reviewed today and her list is now up to date. Medications Current Outpatient Medications Medication Sig losartan (COZAAR) 25 mg tablet Take 1 tablet by mouth once daily. propranolol ER (INDERAL LA) 80 mg 24 hr capsule Take 1 capsule by mouth once daily. metFORMIN (GLUCOPHAGE) 500 mg tablet Take 1 tablet by mouth two times a day with meals. desvenlafaxine ER (PRISTIQ) 100 mg 24 hr tablet Take 1 tablet by mouth once daily. No current facility-administered medications for this visit. ALLERGIES Allergen Reactions Lisinopril Intolerance ACTIVE PROBLEM LIST Elevated Heart Rate With Elevated Blood Pressure and Diagnosis of Hypertension - 01/20/2022 Racing Heart Beat - 01/18/2022 Robert (Generalized Anxiety Disorder) - 11/18/2021 Hypertension, Essential - 11/18/2021 Comment: Hypertensive emergency or severe asymptomatic hypertension absent. No evidence of target organ damage. Lifestyle: never smoker; no use of EtOH Diet: she cooks at home; lots of pasta; she enjoys vegetables and fruits Exercise: no regimen; maybe 1 walk a day with the dogs Hidradenitis Suppurativa - 11/18/2021 Acne Vulgaris - 11/18/2021 Lymph Node Enlargement - 11/18/2021 Generalized Seizures (Hcc) - 03/03/2021 Tension Headaches - 03/03/2021 Headache, Rebound - 03/03/2021 Shortening, Leg, Congenital, Left - 01/04/2021 Scoliosis Concern - 01/04/2021 Seizure Disorder (Hcc) - 01/04/2021 Migraine Without Aura, Not Intractable, With Status Migrainosus - 01/04/2021 Obesity, Class III, BMI >= 40 - 01/03/2021 Social History Tobacco Use Smoking status: Never Smokeless tobacco: Never Vaping Use Vaping status: Never Used Substance Use Topics Alcohol use: Not Currently Drug use: Never Review of Systems Respiratory: Negative. Cardiovascular: Negative. Gastrointestinal: Positive for abdominal pain and diarrhea. Negative for abdominal distention, anal bleeding, blood in stool, constipation, nausea, rectal pain and vomiting. OBJECTIVE BP 122/78 Pulse 80 Temp (Src) 98.6 (Tympanic) Wt 245 lb 9.5 oz (111.4kg) SpO2 98% LMP 07/08/2024 Physical Exam Vitals and nursing note reviewed. Constitutional: General: She is awake. She is not in acute distress. Appearance: Normal appearance. She is well-developed and well-groomed. She is not ill-appearing, toxic-appearing or diaphoretic. HENT: Head: Normocephalic. Right Ear: External ear normal. Left Ear: External ear normal. Nose: Nose normal. Eyes: General: Vision grossly intact. Conjunctiva/sclera: Conjunctivae normal. Pupils: Pupils are equal, round, and reactive to light. Neck: Vascular: No JVD. Trachea: Trachea normal. Cardiovascular: Rate and Rhythm: Normal rate and regular rhythm. Pulses: Normal pulses. Heart sounds: Normal heart sounds. No murmur heard. Pulmonary: Effort: Pulmonary effort is normal. No accessory muscle usage, prolonged expiration or respiratory distress. Breath sounds: Normal breath sounds. Abdominal: General: Bowel sounds are normal. Palpations: Abdomen is soft. Tenderness: There is abdominal tenderness in the right upper quadrant. There is no guarding or rebound. Positive signs include Ly's sign. Negative signs include McBurney's sign. Musculoskeletal: Cervical back: Neck supple. Skin: General: Skin is warm and dry. Capillary Refill: Capillary refill takes less than 2 seconds. Neurological: General: No focal deficit present. Mental Status: She is alert and oriented to person, place, and time. Mental status is at baseline. Psychiatric: Attention and Perception: Attention and perception normal. Mood and Affect: Mood and affect normal. Speech: Speech normal. Behavior: Behavior normal. Behavior is cooperative. Thought Content: Thought content normal. Cognition and Memory: Cognition and memory normal. Judgment: Judgment normal. ASSESSMENT/PLAN: 1. Right upper quadrant abdominal pain - ICD9: 789.01, ICD10: R10.11 Pain highly suspicious of gallbladd (more content not included)... [facility] 08-01-2024 History of Presen t illness Narrative SUBJECTIVE Poly Armando is a 29 year old female here today for acute concerns. Chief Complaint Patient presents with: Abdominal Pain: started yesterday aches with some cramping. 1 episode of diarrhea. HPI Poly Armando is a 29 year old female. She is an established patient. Here today for acute concerns of abdominal pain. She reports abdominal pain with an onset of yesterday. Has cramping and x1 episode of diarrhea. Pain is mostly to the RUQ. Pain is constant but worse at sometimes. Prior CT of abd/pelvis done 10/2023 and had punctuate left renal stone, no other issues. Had an episode of pain in October and this feels very similar. Odor to her stool. Took pepto and did not help. No nausea or vomiting and no urinary symptoms. Her medications were reviewed today and her list is now up to date. Medications Current Outpatient Medications Medication Sig losartan (COZAAR) 25 mg tablet Take 1 tablet by mouth once daily. propranolol ER (INDERAL LA) 80 mg 24 hr capsule Take 1 capsule by mouth once daily. metFORMIN (GLUCOPHAGE) 500 mg tablet Take 1 tablet by mouth two times a day with meals. desvenlafaxine ER (PRISTIQ) 100 mg 24 hr tablet Take 1 tablet by mouth once daily. No current facility-administered medications for this visit. ALLERGIES Allergen Reactions Lisinopril Intolerance ACTIVE PROBLEM LIST Elevated Heart Rate With Elevated Blood Pressure and Diagnosis of Hypertension - 01/20/2022 Racing Heart Beat - 01/18/2022 Robert (Generalized Anxiety Disorder) - 11/18/2021 Hypertension, Essential - 11/18/2021 Comment: Hypertensive emergency or severe asymptomatic hypertension absent. No evidence of target organ damage. Lifestyle: never smoker; no use of EtOH Diet: she cooks at home; lots of pasta; she enjoys vegetables and fruits Exercise: no regimen; maybe 1 walk a day with the dogs Hidradenitis Suppurativa - 11/18/2021 Acne Vulgaris - 11/18/2021 Lymph Node Enlargement - 11/18/2021 Generalized Seizures (Hcc) - 03/03/2021 Tension Headaches - 03/03/2021 Headache, Rebound - 03/03/2021 Shortening, Leg, Congenital, Left - 01/04/2021 Scoliosis Concern - 01/04/2021 Seizure Disorder (Hcc) - 01/04/2021 Migraine Without Aura, Not Intractable, With Status Migrainosus - 01/04/2021 Obesity, Class III, BMI >= 40 - 01/03/2021 Social History Tobacco Use Smoking status: Never Smokeless tobacco: Never Vaping Use Vaping status: Never Used Substance Use Topics Alcohol use: Not Currently Drug use: Never Review of Systems Respiratory: Negative. Cardiovascular: Negative. Gastrointestinal: Positive for abdominal pain and diarrhea. Negative for abdominal distention, anal bleeding, blood in stool, constipation, nausea, rectal pain and vomiting. OBJECTIVE BP 122/78 Pulse 80 Temp (Src) 98.6 (Tympanic) Wt 245 lb 9.5 oz (111.4kg) SpO2 98% LMP 07/08/2024 Physical Exam Vitals and nursing note reviewed. Constitutional: General: She is awake. She is not in acute distress. Appearance: Normal appearance. She is well-developed and well-groomed. She is not ill-appearing, toxic-appearing or diaphoretic. HENT: Head: Normocephalic. Right Ear: External ear normal. Left Ear: External ear normal. Nose: Nose normal. Eyes: General: Vision grossly intact. Conjunctiva/sclera: Conjunctivae normal. Pupils: Pupils are equal, round, and reactive to light. Neck: Vascular: No JVD. Trachea: Trachea normal. Cardiovascular: Rate and Rhythm: Normal rate and regular rhythm. Pulses: Normal pulses. Heart sounds: Normal heart sounds. No murmur heard. Pulmonary: Effort: Pulmonary effort is normal. No accessory muscle usage, prolonged expiration or respiratory distress. Breath sounds: Normal breath sounds. Abdominal: General: Bowel sounds are normal. Palpations: Abdomen is soft. Tenderness: There is abdominal tenderness in the right upper quadrant. There is no guarding or rebound. Positive signs include Ly's sign. Negative signs include McBurney's sign. Musculoskeletal: Cervical back: Neck supple. Skin: General: Skin is warm and dry. Capillary Refill: Capillary refill takes less than 2 seconds. Neurological: General: No focal deficit present. Mental Status: She is alert and oriented to person, place, and time. Mental status is at baseline. Psychiatric: Attention and Perception: Attention and perception normal. Mood and Affect: Mood and affect normal. Speech: Speech normal. Behavior: Behavior normal. Behavior is cooperative. Thought Content: Thought content normal. Cognition and Memory: Cognition and memory normal. Judgment: Judgment normal. ASSESSMENT/PLAN: 1. Right upper quadrant abdominal pain - ICD9: 789.01, ICD10: R10.11 Pain highly suspicious of gallbladder etiology given her exam, get ultrasound and discussed we may need follow up with a HIDA scan. - US ABD RIGHT UPPER QUADRANT Portions of this note have been entered by ancillary staff. I have reviewed and when necessary edited, so that they are an adequate record of my encounter with this patient Please note that parts of this document were created using voice recognition software and therefore may contain grammatical errors. Patient verbalizes understanding of instructions from today's visit and in agreement with treatment plan. Questions answered. Agrees to call the office if questions, concerns of issues with acute symptoms not improving or if they worsen. See diagnoses and orders for additional plan(s). Allergies and medications were reviewed, list was updated, and refills given if needed. Past medical, surgical, social, and family history reviewed and updated as appropriate. Encouraged proper diet & exercise as well as compliance with taking medications. Age-appropriate health preventative measures were discussed. Return if symptoms worsen or fail to improve. MARK Machado documented in this encounter [facility] 08-01-2024 Telephone encounter Note Please see triage note from 08/01/24, Pt scheduled with Wilson Wharton JIG MILL OPERATOR at 1 pm today. [facility] 08-01-2024 Miscellaneous Notes Please see triage note from 08/01/24, Pt scheduled with Wilson Wharton NP at 1 pm today. documented in this encounter [facility] 08-01-2024 Telephone encounter Note Protocol recommends see provider in 4 hours. Pt scheduled with Wilson Wharton NP at 100 pm today. Care plan reviewed with patient. Patient voices understanding. Advised patient that if symptoms get worse to be evaluated in Urgent Care or ER. Reason for Disposition [1] MILD-MODERATE pain AND [2] constant AND [3] present > 2 hours Answer Assessment - Initial Assessment Questions 1. LOCATION: It hurts in the RUQ of abdomen. 2. RADIATION: The pain doesn't shoot anywhere else like chest, back.3. ONSET: The pain began yesterday morning. 4. SUDDEN: Pt states yesterday morning she felt like she had to fart and she had liquidy diarrhea come out. She states the pain and cramping starting right after. 5. PATTERN The pain is constant, states it gets better and then gets worse. Reports it fluctuates. Reports now it is a 4/10 but a little bit ago it was a 7-8/10. 6. SEVERITY: - MILD (1-3): Doesn't interfere with normal activities, abdomen soft and not tender to touch.. - MODERATE (4-7): Interferes with normal activities or awakens from sleep, abdomen tender to touch. - SEVERE (8-10): Excruciating pain, doubled over, unable to do any normal activities. Reports now it is a 4/10 but a little bit ago it was a 7-8/10. She states it feels like someone is twisting her insides. 7. RECURRENT SYMPTOM: Reports a couple of months ago she had this type of stomach pain before, and they couldn't give her any answers. She states the pain was lower and the bloating was similar. She states they told her she had non-alcoholic fatty liver. States she has a history of kidney stones. 8. AGGRAVATING FACTORS: Nothing seems to be causing this pain. Pt states she doesn't drink alcohol, and hasn't changed what she eats. She did state she ate brussels sprouts which she doesn't normally eat. Pt states she is always stressed out, she has 3 kids and they are always running, but nothing new. 9. CARDIAC SYMPTOMS: Pt denies chest pain, difficulty breathing, or nausea. Pt reports she always sweat. Pt reports bloating and gas. 10. OTHER SYMPTOMS: Pt denies back pain, fever, urination pain, or vomiting. Pt states she had watery diarrhea the first day. 11. : Pt reports she has her tubes tied. Protocols used: Abdominal Pain - [id number] [facility] 08-01-2024 Miscellaneous Notes Protocol recommends see provider in 4 hours. Pt scheduled with Wilson Wharton NP at 100 pm today. Care plan reviewed with patient. Patient voices understanding. Advised patient that if symptoms get worse to be evaluated in Urgent Care or ER. Reason for Disposition [1] MILD-MODERATE pain AND [2] constant AND [3] present > 2 hours Answer Assessment - Initial Assessment Questions 1. LOCATION: It hurts in the RUQ of abdomen. 2. RADIATION: The pain doesn't shoot anywhere else like chest, back.3. ONSET: The pain began yesterday morning. 4. SUDDEN: Pt states yesterday morning she felt like she had to fart and she had liquidy diarrhea come out. She states the pain and cramping starting right after. 5. PATTERN The pain is constant, states it gets better and then gets worse. Reports it fluctuates. Reports now it is a 4/10 but a little bit ago it was a 7-8/10. 6. SEVERITY: - MILD (1-3): Doesn't interfere with normal activities, abdomen soft and not tender to touch.. - MODERATE (4-7): Interferes with normal activities or awakens from sleep, abdomen tender to touch. - SEVERE (8-10): Excruciating pain, doubled over, unable to do any normal activities. Reports now it is a 4/10 but a little bit ago it was a 7-8/10. She states it feels like someone is twisting her insides. 7. RECURRENT SYMPTOM: Reports a couple of months ago she had this type of stomach pain before, and they couldn't give her any answers. She states the pain was lower and the bloating was similar. She states they told her she had non-alcoholic fatty liver. States she has a history of kidney stones. 8. AGGRAVATING FACTORS: Nothing seems to be causing this pain. Pt states she doesn't drink alcohol, and hasn't changed what she eats. She did state she ate brussels sprouts which she doesn't normally eat. Pt states she is always stressed out, she has 3 kids and they are always running, but nothing new. 9. CARDIAC SYMPTOMS: Pt denies chest pain, difficulty breathing, or nausea. Pt reports she always sweat. Pt reports bloating and gas. 10. OTHER SYMPTOMS: Pt denies back pain, fever, urination pain, or vomiting. Pt states she had watery diarrhea the first day. 11. : Pt reports she has her tubes tied. Protocols used: Abdominal Pain - [id number] documented in this encounter [facility] 07-11-2024 Note HNO ID: [id number] Author: WILSON WHARTON APRN.BOOM MASTER Service: ? Author Type: Nurse Practitioner Type: Progress Notes Filed: 07/11/2024 12:42 Note Text: SUBJECTIVE Poly Armando is a 29 year old female here today for a check up on her medical problems. Chief Complaint Patient presents with: Follow Up HPI Poly Armando is a 29 year old female. She is an established patient. Here today for follow up. Last visit we started phentermine to help with weight loss. 5% weight loss goal of 12.25 pounds, starting weight 245 pounds and weight today is 244 for 1 pound weight loss. She had some issues with side effects with the medication initially but that has resolved. Taking the full dose now of phentermine. Not much improvement in energy levels with this. Still tired all of the time. She has excess fatigue and daytime tiredness/sleepiness. Has also tried modafinil in the past but did not tolerate this. Concerns of continued issues with dizziness, palpations at times, occasional migraines. Prior seizure disorder diagnosis but no activity that she has noticed. Last MRI was in 2020. She is just not feeling great and not sure why, has felt like this for years. Her medications were reviewed today and her list is now up to date. Medications Current Outpatient Medications Medication Sig losartan (COZAAR) 25 mg tablet Take 1 tablet by mouth once daily. propranolol ER (INDERAL LA) 80 mg 24 hr capsule Take 1 capsule by mouth once daily. metFORMIN (GLUCOPHAGE) 500 mg tablet Take 1 tablet by mouth two times a day with meals. desvenlafaxine ER (PRISTIQ) 100 mg 24 hr tablet Take 1 tablet by mouth once daily. iv contrast (will be provided with radiology test) MRI Brain Inject, intravenously, once for 1 dose.No IV access, insert saline lock prior to beginning of sedation, infusion, injection of imaging exam.Discontinue saline lock post exam. If Pt. has a central line or IVAD, may access for administration according to line specific nursing protocol.Once exam is complete flush line and de-access according to line specific nursing protocol in the MR contrast administration guidelines link Phentermine HCl (ADIPEX-P) 37.5 mg tablet Take 1 tablet by mouth once daily for 30 days. No current facility-administered medications for this visit. ALLERGIES Allergen Reactions Lisinopril Intolerance ACTIVE PROBLEM LIST Elevated Heart Rate With Elevated Blood Pressure and Diagnosis of Hypertension - 01/20/2022 Racing Heart Beat - 01/18/2022 Robert (Generalized Anxiety Disorder) - 11/18/2021 Hypertension, Essential - 11/18/2021 Comment: Hypertensive emergency or severe asymptomatic hypertension absent. No evidence of target organ damage. Lifestyle: never smoker; no use of EtOH Diet: she cooks at home; lots of pasta; she enjoys vegetables and fruits Exercise: no regimen; maybe 1 walk a day with the dogs Hidradenitis Suppurativa - 11/18/2021 Acne Vulgaris - 11/18/2021 Lymph Node Enlargement - 11/18/2021 Generalized Seizures (Hcc) - 03/03/2021 Tension Headaches - 03/03/2021 Headache, Rebound - 03/03/2021 Shortening, Leg, Congenital, Left - 01/04/2021 Scoliosis Concern - 01/04/2021 Seizure Disorder (Hcc) - 01/04/2021 Migraine Without Aura, Not Intractable, With Status Migrainosus - 01/04/2021 Obesity, Class III, BMI >= 40 - 01/03/2021 Social History Tobacco Use Smoking status: Never Smokeless tobacco: Never Vaping Use Vaping status: Never Used Substance Use Topics Alcohol use: Not Currently Drug use: Never Review of Systems Constitutional: Positive for fatigue. Respiratory: Negative. Cardiovascular: Negative for chest pain and leg swelling. Neurological: Positive for dizziness and headaches. OBJECTIVE BP 120/77 Pulse 66 Resp 16 Wt 244 lb 4.3 oz (110.8kg) LMP 05/16/2024 Physical Exam Vitals and nursing note reviewed. Constitutional: General: She is awake. She is not in acute distress. Appearance: Normal appearance. She is well-developed and well-groomed. She is not ill-appearing, toxic-appearing or diaphoretic. HENT: Head: Normocephalic. Right Ear: External ear normal. Left Ear: External ear normal. Nose: Nose normal. Eyes: General: Vision grossly intact. Conjunctiva/sclera: Conjunctivae normal. Pupils: Pupils are equal, round, and reactive to light. Neck: Vascular: No JVD. Trachea: Trachea normal. Cardiovascular: Rate and Rhythm: Normal rate and regular rhythm. Pulses: Normal pulses. Heart sounds: Normal heart sounds. No murmur heard. Pulmonary: Effort: Pulmonary effort is normal. No accessory muscle usage, prolonged expiration or respiratory distress. Breath sounds: Normal breath sounds. Musculoskeletal: Cervical back: Neck supple. Skin: General: Skin is warm and dry. Capillary Refill: Capillary refill takes less than 2 seconds. Neurological: General: No focal deficit present. Mental Status: She is alert a (more content not included)... [facility] 07-11-2024 History of Presen t illness Narrative SUBJECTIVE Poly Armando is a 29 year old female here today for a check up on her medical problems. Chief Complaint Patient presents with: Follow Up HPI Poly Armando is a 29 year old female. She is an established patient. Here today for follow up. Last visit we started phentermine to help with weight loss. 5% weight loss goal of 12.25 pounds, starting weight 245 pounds and weight today is 244 for 1 pound weight loss. She had some issues with side effects with the medication initially but that has resolved. Taking the full dose now of phentermine. Not much improvement in energy levels with this. Still tired all of the time. She has excess fatigue and daytime tiredness/sleepiness. Has also tried modafinil in the past but did not tolerate this. Concerns of continued issues with dizziness, palpations at times, occasional migraines. Prior seizure disorder diagnosis but no activity that she has noticed. Last MRI was in 2020. She is just not feeling great and not sure why, has felt like this for years. Her medications were reviewed today and her list is now up to date. Medications Current Outpatient Medications Medication Sig losartan (COZAAR) 25 mg tablet Take 1 tablet by mouth once daily. propranolol ER (INDERAL LA) 80 mg 24 hr capsule Take 1 capsule by mouth once daily. metFORMIN (GLUCOPHAGE) 500 mg tablet Take 1 tablet by mouth two times a day with meals. desvenlafaxine ER (PRISTIQ) 100 mg 24 hr tablet Take 1 tablet by mouth once daily. iv contrast (will be provided with radiology test) MRI Brain Inject, intravenously, once for 1 dose.No IV access, insert saline lock prior to beginning of sedation, infusion, injection of imaging exam.Discontinue saline lock post exam. If Pt. has a central line or IVAD, may access for administration according to line specific nursing protocol.Once exam is complete flush line and de-access according to line specific nursing protocol in the MR contrast administration guidelines link Phentermine HCl (ADIPEX-P) 37.5 mg tablet Take 1 tablet by mouth once daily for 30 days. No current facility-administered medications for this visit. ALLERGIES Allergen Reactions Lisinopril Intolerance ACTIVE PROBLEM LIST Elevated Heart Rate With Elevated Blood Pressure and Diagnosis of Hypertension - 01/20/2022 Racing Heart Beat - 01/18/2022 Robert (Generalized Anxiety Disorder) - 11/18/2021 Hypertension, Essential - 11/18/2021 Comment: Hypertensive emergency or severe asymptomatic hypertension absent. No evidence of target organ damage. Lifestyle: never smoker; no use of EtOH Diet: she cooks at home; lots of pasta; she enjoys vegetables and fruits Exercise: no regimen; maybe 1 walk a day with the dogs Hidradenitis Suppurativa - 11/18/2021 Acne Vulgaris - 11/18/2021 Lymph Node Enlargement - 11/18/2021 Generalized Seizures (Hcc) - 03/03/2021 Tension Headaches - 03/03/2021 Headache, Rebound - 03/03/2021 Shortening, Leg, Congenital, Left - 01/04/2021 Scoliosis Concern - 01/04/2021 Seizure Disorder (Hcc) - 01/04/2021 Migraine Without Aura, Not Intractable, With Status Migrainosus - 01/04/2021 Obesity, Class III, BMI >= 40 - 01/03/2021 Social History Tobacco Use Smoking status: Never Smokeless tobacco: Never Vaping Use Vaping status: Never Used Substance Use Topics Alcohol use: Not Currently Drug use: Never Review of Systems Constitutional: Positive for fatigue. Respiratory: Negative. Cardiovascular: Negative for chest pain and leg swelling. Neurological: Positive for dizziness and headaches. OBJECTIVE BP 120/77 Pulse 66 Resp 16 Wt 244 lb 4.3 oz (110.8kg) LMP 05/16/2024 Physical Exam Vitals and nursing note reviewed. Constitutional: General: She is awake. She is not in acute distress. Appearance: Normal appearance. She is well-developed and well-groomed. She is not ill-appearing, toxic-appearing or diaphoretic. HENT: Head: Normocephalic. Right Ear: External ear normal. Left Ear: External ear normal. Nose: Nose normal. Eyes: General: Vision grossly intact. Conjunctiva/sclera: Conjunctivae normal. Pupils: Pupils are equal, round, and reactive to light. Neck: Vascular: No JVD. Trachea: Trachea normal. Cardiovascular: Rate and Rhythm: Normal rate and regular rhythm. Pulses: Normal pulses. Heart sounds: Normal heart sounds. No murmur heard. Pulmonary: Effort: Pulmonary effort is normal. No accessory muscle usage, prolonged expiration or respiratory distress. Breath sounds: Normal breath sounds. Musculoskeletal: Cervical back: Neck supple. Skin: General: Skin is warm and dry. Capillary Refill: Capillary refill takes less than 2 seconds. Neurological: General: No focal deficit present. Mental Status: She is alert and oriented to person, place, and time. Mental status is at baseline. Psychiatric: Attention and Perception: Attention and perception normal. Mood and Affect: Mood and affect normal. Speech: Speech normal. Behavior: Behavior normal. Behavior is cooperative. Thought Content: Thought content normal. Cognition and Memory: Cognition and memory normal. Judgment: Judgment normal. ASSESSMENT/PLAN: 1. Excessive daytime sleepiness - ICD9: 780.54, ICD10: G47.19 (primary diagnosis) She still does not feel great. Prior work up has included sleep study, cardiac monitoring and ECHO. We will get an updated MRI and also tilt table test. Check labs, refer to sleep medicine. - CONSULT TO SLEEP MEDICINE - ADULT 2. Dizzy - ICD9: 780.4, ICD10: R42 See above. - TILT TABLE EVALUATION - MRI BRAIN WO/W IVCON - IV CONTRAST (RADIOLOGY PROCEDURE) - CONSULT TO SLEEP MEDICINE - ADULT - CORTISOL, SERUM - CORTISOL, FREE - COMPLETE BLOOD COUNT AND DIFFERENTIAL - COMPREHENSIVE METABOLIC PANEL - SHALONDA BY IFA WITH REFLEX 3. Palpitation - ICD9: 785.1, ICD10: R00.2 - TILT TABLE EVALUATION - CONSULT TO SLEEP MEDICINE - ADULT 4. Other fatigue - ICD9: 780.79, ICD10: R53.83 - TILT TABLE EVALUATION - MRI BRAIN WO/W IVCON - IV CONTRAST (RADIOLOGY PROCEDURE) - CONSULT TO SLEEP MEDICINE - ADULT - CORTISOL, SERUM - CORTISOL, FREE - COMPLETE BLOOD COUNT AND DIFFERENTIAL - COMPREHENSIVE METABOLIC PANEL - SHALONDA BY IFA WITH REFLEX 5. Seizure disorder (HCC) - ICD9: 345.90, ICD10: G40.909 - MRI BRAIN WO/W IVCON - IV CONTRAST (RADIOLOGY PROCEDURE) - CONSULT TO SLEEP MEDICINE - ADULT 6. Migraine without aura, not intractable, with status migrainosus - ICD9: 346.12, ICD10: G43.001 - MRI BRAIN WO/W IVCON - IV CONTRAST (RADIOLOGY PROCEDURE) 7. IFG (impaired fasting glucose) - ICD9: 790.21, ICD10: R73.01 Working on weight loss, on metformin for glucose control. 8. Class 3 severe obesity with serious comorbidity and body mass index (BMI) of 40.0 to 44.9 in adult, unspecified obesity type (HCC) - ICD9: 278.01, V85.41, ICD10: E66.813, E66.01, Z68.41 - Behavioral intervention and - Pharmacological intervention - PHENTERMINE 37.5 MG TABLET Portions of this note have been entered by ancillary staff. I have reviewed and when necessary edited, so that they are an adequate record of my encounter with this patient Please note that parts of this document were created using voice recognition software and therefore may contain grammatical errors. Patient verbalizes understanding of instructions from today's visit and in agreement with treatment plan. Questions answered. Agrees to call the office if questions, concerns of issues with acute symptoms not improving or if they worsen. See diagnoses and orders for additional plan(s). Allergies and medications were reviewed, list was updated, and refills given if needed. Past medical, surgical, social, and family history reviewed and updated as appropriate. Encouraged proper diet & exercise as well as compliance with taking medications. Age-appropriate health preventative measures were discussed. Return in about 5 weeks (around 08/15/2024). MARK Machado documented in this encounter [facility] 06-16-2024 Telephone encounter Note Patient has been identified by name and date of : Yes Patient phones for refill(s): Requested Prescriptions Pending Prescriptions Disp Refills losartan (COZAAR) 25 mg tablet 90 tablet 1 Sig: Take 1 tablet by mouth once daily. propranolol ER (INDERAL LA) 80 mg 24 hr capsule 90 capsule 2 Sig: Take 1 capsule by mouth once daily. metFORMIN (GLUCOPHAGE) 500 mg tablet 60 tablet 2 Sig: Take 1 tablet by mouth two times a day with meals. Date of last office visit in primary care: 05/30/2024 Date of next office visit in primary care: 07/11/2024 Please advise. Thank you. Diana Cano LPN. [facility] 06-16-2024 Miscellaneous Notes Patient has been identified by name and date of : Yes Patient phones for refill(s): Requested Prescriptions Pending Prescriptions Disp Refills losartan (COZAAR) 25 mg tablet 90 tablet 1 Sig: Take 1 tablet by mouth once daily. propranolol ER (INDERAL LA) 80 mg 24 hr capsule 90 capsule 2 Sig: Take 1 capsule by mouth once daily. metFORMIN (GLUCOPHAGE) 500 mg tablet 60 tablet 2 Sig: Take 1 tablet by mouth two times a day with meals. Date of last office visit in primary care: 05/30/2024 Date of next office visit in primary care: 07/11/2024 Please advise. Thank you. Diana Cano LPN. documented in this encounter [facility] 05-30-2024 Note HNO ID: [id number] Author: WILSON WHARTON APRN.BRIT Service: ? Author Type: Nurse Practitioner Type: Progress Notes Filed: 05/30/2024 12:21 Note Text: SUBJECTIVE Poly Armando is a 29 year old female here today for a check up on her medical problems. Chief Complaint Patient presents with: Weight Problem: follow up HPI Poly Armando is a 29 year old female. She is an established patient. Here today for follow up. Has been working on weight loss. Other history of IFG, FREY. On metformin. Previously discussed trial of phentermine. Weight today is 245 pounds. 5% weight loss goal would be 12.25 pounds. Still with a lot of tiredness. For anxiety and depression she is on Pristiq. Last visit we increased this. Mood doing well. Blood pressure well controlled, palpitations well controlled. Her medications were reviewed today and her list is now up to date. Medications Current Outpatient Medications Medication Sig desvenlafaxine ER (PRISTIQ) 100 mg 24 hr tablet Take 1 tablet by mouth once daily. metFORMIN (GLUCOPHAGE) 500 mg tablet Take 1 tablet by mouth two times a day with meals. propranolol ER (INDERAL LA) 80 mg 24 hr capsule Take 1 capsule by mouth once daily. losartan (COZAAR) 25 mg tablet Take 1 tablet by mouth once daily. Phentermine HCl 37.5 mg tablet Take 1 tablet by mouth once daily for 30 days. No current facility-administered medications for this visit. ALLERGIES Allergen Reactions Lisinopril Intolerance ACTIVE PROBLEM LIST Elevated Heart Rate With Elevated Blood Pressure and Diagnosis of Hypertension - 01/20/2022 Racing Heart Beat - 01/18/2022 Robert (Generalized Anxiety Disorder) - 11/18/2021 Hypertension, Essential - 11/18/2021 Comment: Hypertensive emergency or severe asymptomatic hypertension absent. No evidence of target organ damage. Lifestyle: never smoker; no use of EtOH Diet: she cooks at home; lots of pasta; she enjoys vegetables and fruits Exercise: no regimen; maybe 1 walk a day with the dogs Hidradenitis Suppurativa - 11/18/2021 Acne Vulgaris - 11/18/2021 Lymph Node Enlargement - 11/18/2021 Generalized Seizures (Hcc) - 03/03/2021 Tension Headaches - 03/03/2021 Headache, Rebound - 03/03/2021 Shortening, Leg, Congenital, Left - 01/04/2021 Scoliosis Concern - 01/04/2021 Seizure Disorder (Former[facility]) - 01/04/2021 Migraine Without Aura, Not Intractable, With Status Migrainosus - 01/04/2021 Obesity, Class III, BMI >= 40 - 01/03/2021 Social History Tobacco Use Smoking status: Never Smokeless tobacco: Never Vaping Use Vaping status: Never Used Substance Use Topics Alcohol use: Not Currently Drug use: Never Review of Systems Constitutional: Negative. Respiratory: Negative. Cardiovascular: Negative. OBJECTIVE BP 110/76 Pulse 70 Wt 245 lb 6 oz (111.3kg) SpO2 98% LMP 05/16/2024 Physical Exam Vitals and nursing note reviewed. Constitutional: General: She is awake. She is not in acute distress. Appearance: Normal appearance. She is well-developed and well-groomed. She is not ill-appearing, toxic-appearing or diaphoretic. HENT: Head: Normocephalic. Right Ear: External ear normal. Left Ear: External ear normal. Nose: Nose normal. Eyes: General: Vision grossly intact. Conjunctiva/sclera: Conjunctivae normal. Pupils: Pupils are equal, round, and reactive to light. Neck: Vascular: No JVD. Trachea: Trachea normal. Cardiovascular: Rate and Rhythm: Normal rate and regular rhythm. Pulses: Normal pulses. Heart sounds: Normal heart sounds. No murmur heard. Pulmonary: Effort: Pulmonary effort is normal. No accessory muscle usage, prolonged expiration or respiratory distress. Breath sounds: Normal breath sounds. Musculoskeletal: Cervical back: Neck supple. Skin: General: Skin is warm and dry. Capillary Refill: Capillary refill takes less than 2 seconds. Neurological: General: No focal deficit present. Mental Status: She is alert and oriented to person, place, and time. Mental status is at baseline. Psychiatric: Attention and Perception: Attention and perception normal. Mood and Affect: Mood and affect normal. Speech: Speech normal. Behavior: Behavior normal. Behavior is cooperative. Thought Content: Thought content normal. Cognition and Memory: Cognition and memory normal. Judgment: Judgment normal. ASSESSMENT/PLAN: 1. ROBERT (generalized anxiety disorder) - ICD9: 300.02, ICD10: F41.1 (primary diagnosis) Stable on current medication. 2. Moderate episode of recurrent major depressive disorder (HCC) - ICD9: 296.32, ICD10: F33.1 See #1 3. Hypertension, essential - ICD9: 401.9, ICD10: I10 - Controlled - Continue current medications - Recommend home blood pressure monitoring, to bring results to next visit - Encouraged sodium restriction, DASH or Mediterranean diet - Recommend regular aerobic exercise 4. IFG (impaired fasting glucose) - ICD9: 790.21, ICD10: R73.01 (more content not included)... [facility] 05-30-2024 History of Presen t illness Narrative SUBJECTIVE Poly Armando is a 29 year old female here today for a check up on her medical problems. Chief Complaint Patient presents with: Weight Problem: follow up HPI Poly Armando is a 29 year old female. She is an established patient. Here today for follow up. Has been working on weight loss. Other history of IFG, FREY. On metformin. Previously discussed trial of phentermine. Weight today is 245 pounds. 5% weight loss goal would be 12.25 pounds. Still with a lot of tiredness. For anxiety and depression she is on Pristiq. Last visit we increased this. Mood doing well. Blood pressure well controlled, palpitations well controlled. Her medications were reviewed today and her list is now up to date. Medications Current Outpatient Medications Medication Sig desvenlafaxine ER (PRISTIQ) 100 mg 24 hr tablet Take 1 tablet by mouth once daily. metFORMIN (GLUCOPHAGE) 500 mg tablet Take 1 tablet by mouth two times a day with meals. propranolol ER (INDERAL LA) 80 mg 24 hr capsule Take 1 capsule by mouth once daily. losartan (COZAAR) 25 mg tablet Take 1 tablet by mouth once daily. Phentermine HCl 37.5 mg tablet Take 1 tablet by mouth once daily for 30 days. No current facility-administered medications for this visit. ALLERGIES Allergen Reactions Lisinopril Intolerance ACTIVE PROBLEM LIST Elevated Heart Rate With Elevated Blood Pressure and Diagnosis of Hypertension - 01/20/2022 Racing Heart Beat - 01/18/2022 Robert (Generalized Anxiety Disorder) - 11/18/2021 Hypertension, Essential - 11/18/2021 Comment: Hypertensive emergency or severe asymptomatic hypertension absent. No evidence of target organ damage. Lifestyle: never smoker; no use of EtOH Diet: she cooks at home; lots of pasta; she enjoys vegetables and fruits Exercise: no regimen; maybe 1 walk a day with the dogs Hidradenitis Suppurativa - 11/18/2021 Acne Vulgaris - 11/18/2021 Lymph Node Enlargement - 11/18/2021 Generalized Seizures (Hcc) - 03/03/2021 Tension Headaches - 03/03/2021 Headache, Rebound - 03/03/2021 Shortening, Leg, Congenital, Left - 01/04/2021 Scoliosis Concern - 01/04/2021 Seizure Disorder (Hcc) - 01/04/2021 Migraine Without Aura, Not Intractable, With Status Migrainosus - 01/04/2021 Obesity, Class III, BMI >= 40 - 01/03/2021 Social History Tobacco Use Smoking status: Never Smokeless tobacco: Never Vaping Use Vaping status: Never Used Substance Use Topics Alcohol use: Not Currently Drug use: Never Review of Systems Constitutional: Negative. Respiratory: Negative. Cardiovascular: Negative. OBJECTIVE BP 110/76 Pulse 70 Wt 245 lb 6 oz (111.3kg) SpO2 98% LMP 05/16/2024 Physical Exam Vitals and nursing note reviewed. Constitutional: General: She is awake. She is not in acute distress. Appearance: Normal appearance. She is well-developed and well-groomed. She is not ill-appearing, toxic-appearing or diaphoretic. HENT: Head: Normocephalic. Right Ear: External ear normal. Left Ear: External ear normal. Nose: Nose normal. Eyes: General: Vision grossly intact. Conjunctiva/sclera: Conjunctivae normal. Pupils: Pupils are equal, round, and reactive to light. Neck: Vascular: No JVD. Trachea: Trachea normal. Cardiovascular: Rate and Rhythm: Normal rate and regular rhythm. Pulses: Normal pulses. Heart sounds: Normal heart sounds. No murmur heard. Pulmonary: Effort: Pulmonary effort is normal. No accessory muscle usage, prolonged expiration or respiratory distress. Breath sounds: Normal breath sounds. Musculoskeletal: Cervical back: Neck supple. Skin: General: Skin is warm and dry. Capillary Refill: Capillary refill takes less than 2 seconds. Neurological: General: No focal deficit present. Mental Status: She is alert and oriented to person, place, and time. Mental status is at baseline. Psychiatric: Attention and Perception: Attention and perception normal. Mood and Affect: Mood and affect normal. Speech: Speech normal. Behavior: Behavior normal. Behavior is cooperative. Thought Content: Thought content normal. Cognition and Memory: Cognition and memory normal. Judgment: Judgment normal. ASSESSMENT/PLAN: 1. ROBERT (generalized anxiety disorder) - ICD9: 300.02, ICD10: F41.1 (primary diagnosis) Stable on current medication. 2. Moderate episode of recurrent major depressive disorder (HCC) - ICD9: 296.32, ICD10: F33.1 See #1 3. Hypertension, essential - ICD9: 401.9, ICD10: I10 - Controlled - Continue current medications - Recommend home blood pressure monitoring, to bring results to next visit - Encouraged sodium restriction, DASH or Mediterranean diet - Recommend regular aerobic exercise 4. IFG (impaired fasting glucose) - ICD9: 790.21, ICD10: R73.01 Working on weight loss, on metformin. - PHENTERMINE 37.5 MG TABLET 5. Nonalcoholic fatty liver disease without nonalcoholic steatohepatitis (FREY) - ICD9: 571.8, ICD10: K76.0 Working on weight loss and healthy eating. 6. Class 3 severe obesity with serious comorbidity and body mass index (BMI) of 40.0 to 44.9 in adult, unspecified obesity type (HCC) - ICD9: 278.01, V85.41, ICD10: E66.01, Z68.41 The patient has attempted to lose weight with diet, exercise and behavioral pattern changes without the use of a controlled substance and the treatment has been ineffective. Discussed with the patient the different weight loss options and we decided that Phentermine was the best option. The patient will be receiving the 1st Phentermine prescription today. The patient expressed understanding of the risks and benefits of taking Phentermine, and has a desire to proceed with therapy. While taking this medication the patient was instructed to call the office if experiencing any side effects. - Behavioral intervention, - Pharmacological intervention, and - Add Phentermine - PHENTERMINE 37.5 MG TABLET PDMP website checked and validated. All prescriptions have been APPROPRIATELY filled. No suspicious activity was identified. 05/30/2024 by Wilson Wharton APRN.BOOM MASTER Portions of this note have been entered by ancillary staff. I have reviewed and when necessary edited, so that they are an adequate record of my encounter with this patient Please note that parts of this document were created using voice recognition software and therefore may contain grammatical errors. Patient verbalizes understanding of instructions from today's visit and in agreement with treatment plan. Questions answered. Agrees to call the office if questions, concerns of issues with acute symptoms not improving or if they worsen. See diagnoses and orders for additional plan(s). Allergies and medications were reviewed, list was updated, and refills given if needed. Past medical, surgical, social, and family history reviewed and updated as appropriate. Encouraged proper diet & exercise as well as compliance with taking medications. Age-appropriate health preventative measures were discussed. Return in about 6 weeks (around 07/11/2024) for recheck on new medication.. Wilson Wharton APRN-BRIT documented in this encounter [facility] 03-14-2024 History of Presen t illness Narrative SUBJECTIVE Poly Armando is a 28 year old female here today for a check up on her medical problems. Chief Complaint Patient presents with: Follow Up: follow up- new medication metformin HPI Poly Armando is a 28 year old female. She is an established patient who presents today for a medication follow up. Last visit we discussed concerns of IFG and FREY. Started metformin. Today she states feeling pretty good. Tolerating the medication well. It has not impacted weight much. We also discussed concerns of palpations and dizziness, overall this is stable and improved, she suspects it is anxiety related as she has been more stressed. She was ordered ZIO monitoring last visit. Prior ECHO was done that showed EF 65%, normal valve function and normal diastolic function. ZIO results: Patient had a min HR of 46 bpm, max HR of 154 bpm, and avg HR of 79 bpm. Predominant underlying rhythm was Sinus Rhythm. Isolated SVEs were rare (<1.0%), and no SVE Couplets or SVE Triplets were present. Isolated VEs were rare (<1.0%), and no VE Couplets or VE Triplets were present. Her medications were reviewed today and her list is now up to date. Medications Current Outpatient Medications Medication Sig desvenlafaxine ER (PRISTIQ) 100 mg 24 hr tablet Take 1 tablet by mouth once daily. metFORMIN (GLUCOPHAGE) 500 mg tablet Take 1 tablet by mouth two times a day with meals. propranolol ER (INDERAL LA) 80 mg 24 hr capsule Take 1 capsule by mouth once daily. losartan (COZAAR) 25 mg tablet Take 1 tablet by mouth once daily. Current Facility-Administered Medications Medication Dose Route Frequency triamcinolone acetonide 40 mg injection (KeNALog 40) 40 mg INTRAMUSCULAR ONCE (AMB - Up to 30 Days) ALLERGIES Allergen Reactions Lisinopril Intolerance ACTIVE PROBLEM LIST Elevated Heart Rate With Elevated Blood Pressure and Diagnosis of Hypertension - 01/20/2022 Racing Heart Beat - 01/18/2022 Robert (Generalized Anxiety Disorder) - 11/18/2021 Hypertension, Essential - 11/18/2021 Comment: Hypertensive emergency or severe asymptomatic hypertension absent. No evidence of target organ damage. Lifestyle: never smoker; no use of EtOH Diet: she cooks at home; lots of pasta; she enjoys vegetables and fruits Exercise: no regimen; maybe 1 walk a day with the dogs Hidradenitis Suppurativa - 11/18/2021 Acne Vulgaris - 11/18/2021 Lymph Node Enlargement - 11/18/2021 Generalized Seizures (Hcc) - 03/03/2021 Tension Headaches - 03/03/2021 Headache, Rebound - 03/03/2021 Shortening, Leg, Congenital, Left - 01/04/2021 Scoliosis Concern - 01/04/2021 Seizure Disorder (Hcc) - 01/04/2021 Migraine Without Aura, Not Intractable, With Status Migrainosus - 01/04/2021 Obesity, Class III, BMI >= 40 - 01/03/2021 Social History Tobacco Use Smoking status: Never Smokeless tobacco: Never Vaping Use Vaping Use: Never used Substance Use Topics Alcohol use: Not Currently Drug use: Never Review of Systems Constitutional: Negative. Respiratory: Negative. Cardiovascular: Negative for chest pain and leg swelling. OBJECTIVE BP 120/74 Pulse 77 Resp 16 Ht 5' 3 (1.60m) Wt 246 lb (111.6kg) SpO2 98% LMP 02/18/2024 BMI 43.59 kg/(m^2). Physical Exam Vitals and nursing note reviewed. Constitutional: General: She is awake. She is not in acute distress. Appearance: Normal appearance. She is well-developed and well-groomed. She is not ill-appearing, toxic-appearing or diaphoretic. HENT: Head: Normocephalic. Right Ear: External ear normal. Left Ear: External ear normal. Nose: Nose normal. Eyes: General: Vision grossly intact. Conjunctiva/sclera: Conjunctivae normal. Pupils: Pupils are equal, round, and reactive to light. Neck: Vascular: No JVD. Trachea: Trachea normal. Cardiovascular: Rate and Rhythm: Normal rate and regular rhythm. Pulses: Normal pulses. Heart sounds: Normal heart sounds. No murmur heard. Pulmonary: Effort: Pulmonary effort is normal. No accessory muscle usage, prolonged expiration or respiratory distress. Breath sounds: Normal breath sounds. Musculoskeletal: Cervical back: Neck supple. Skin: General: Skin is warm and dry. Capillary Refill: Capillary refill takes less than 2 seconds. Neurological: General: No focal deficit present. Mental Status: She is alert and oriented to person, place, and time. Mental status is at baseline. Psychiatric: Attention and Perception: Attention and perception normal. Mood and Affect: Mood and affect normal. Speech: Speech normal. Behavior: Behavior normal. Behavior is cooperative. Thought Content: Thought content normal. Cognition and Memory: Cognition and memory normal. Judgment: Judgment normal. ASSESSMENT/PLAN: 1. ROBERT (generalized anxiety disorder) - ICD9: 300.02, ICD10: F41.1 (primary diagnosis) Increase to 100 mg daily from 50 mg daily. - DESVENLAFAXINE SUCCINATE ER 100 MG TABLET,EXTENDED RELEASE 24 HR 2. Moderate episode of recurrent major depressive disorder (HCC) - ICD9: 296.32, ICD10: F33.1 See #1 - DESVENLAFAXINE SUCCINATE ER 100 MG TABLET,EXTENDED RELEASE 24 HR 3. Poison ciera dermatitis - ICD9: 692.6, ICD10: L23.7 - discussed skin care of rash - follow up if symptoms persist or worsen. - TRIAMCINOLONE ACETONIDE 40 MG/ML SUSPENSION FOR INJECTION 4. Hypertension, essential - ICD9: 401.9, ICD10: I10 - Controlled - Continue current medications - Recommend home blood pressure monitoring, to bring results to next visit - Encouraged sodium restriction, DASH or Mediterranean diet - Recommend regular aerobic exercise 5. IFG (impaired fasting glucose) - ICD9: 790.21, ICD10: R73.01 Continue on metformin. 6. Nonalcoholic fatty liver disease without nonalcoholic steatohepatitis (FREY) - ICD9: 571.8, ICD10: K76.0 Working on weight loss, healthy diet. 7. Class 3 severe obesity with serious comorbidity and body mass index (BMI) of 40.0 to 44.9 in adult, unspecified obesity type (HCC) - ICD9: 278.01, V85.41, ICD10: E66.01, Z68.41 Discussion on phentermine, wants to try this when school starts for her kids. Portions of this note have been entered by ancillary staff. I have reviewed and when necessary edited, so that they are an adequate record of my encounter with this patient Please note that parts of this document were created using voice recognition software and therefore may contain grammatical errors. Patient verbalizes understanding of instructions from today's visit and in agreement with treatment plan. Questions answered. Agrees to call the office if questions, concerns of issues with acute symptoms not improving or if they worsen. See diagnoses and orders for additional plan(s). Allergies and medications were reviewed, list was updated, and refills given if needed. Past medical, surgical, social, and family history reviewed and updated as appropriate. Encouraged proper diet & exercise as well as compliance with taking medications. Age-appropriate health preventative measures were discussed. Return in about 10 weeks (around 05/23/2024) for Follow up on chronic conditions and medications.. Wilson Wharton APRN-BRIT documented in this encounter [facility] 02-15-2024 Telephone encounter Note Requested Prescriptions Pending Prescriptions Disp Refills desvenlafaxine ER (PRISTIQ) 50 mg 24 hr tablet 30 tablet 2 Sig: Take 1 tablet by mouth once daily. propranolol ER (INDERAL LA) 80 mg 24 hr capsule 90 capsule 2 Sig: Take 1 capsule by mouth once daily. Date of last office visit in primary care: 02/04/2024 Date of next office visit in primary care: 03/10/2024 Please advise. Thank you. Efrain Harmon MA. [facility] 02-15-2024 Miscellaneous Notes Requested Prescriptions Pending Prescriptions Disp Refills desvenlafaxine ER (PRISTIQ) 50 mg 24 hr tablet 30 tablet 2 Sig: Take 1 tablet by mouth once daily. propranolol ER (INDERAL LA) 80 mg 24 hr capsule 90 capsule 2 Sig: Take 1 capsule by mouth once daily. Date of last office visit in primary care: 02/04/2024 Date of next office visit in primary care: 03/10/2024 Please advise. Thank you. Efrain Harmon MA. documented in this encounter [facility] 02-04-2024 Instructions Wilson Wharton APRN.BOOM MASTER - 02/04/2024 9:26 AM EDT Some helpful guides for low carbohydrate and high protein diet: - Aim for a Whole food low-carb diet with 30 g of protein 3 times a day and 30 g of carbs at lunch and dinner only. Use tracking As a monitoring tool. Try to walk 15 minutes after each meal 15 gram carb fruit options Berries have the lowest sugar content 1/2 cup diced honeydew melon - 8 carbs One half medium grapefruit - 10.5 carbs 1 medium orange -15.5 carbs 1 medium peach -14.5 carbs 1/2 cup fresh cranberries - 6.5 carbs 1 medium plum -7.5 carbs 1/2 cup raspberries -7.5 carbs 1 medium Danae -9 carbs 1/2 cup fresh pineapple -11 carbs 1 medium nectarine - 15 carbs 1/2 cup blueberries - 11 carbs - may actually help you lose weight 1 medium kiwi without skin - 11 carbs 1/2 cup fresh cherries -11 carbs 1 medium tangerine -12 carbs 1/2 cup sliced edy -14 carbs 1/2 medium banana 1/2 c grapes 1/2 medium apple - 12.5 carbs 5 gram carb vegetable options 1 cup raw OR cup cooked: Asparagus Cabbage Spinach Peppers Green beans Carrots Tomato Colver Pool sprouts Cauliflower Lettuce Snap peas Broccoli Eggplant Zucchini Turnips Spaghetti squash 15 gram carb vegetable options cup cooked green peas cup cooked corn or hominy corn on the cob, large (5 oz) cup cooked sweet potato, plain cup cooked potato, plain 1 small potato or sweet potato 1 cup winter squash (pumpkin, acorn, butternut) 1 cup marinara or pasta sauce - check label cup tomato juice cup tomato puree Beans, Seeds, Nuts cup cooked beans (kidney, davis, red, green, etc.) cup cooked lentils cup baked beans 4 tablespoons nut butter 30 High Protein Snacks 1. Jerky 2. Whitestone mix without or minimal dried fruit 3. Oriska roll-ups 4. Portuguese yogurt 5. Veggies and yogurt dip 6. Tuna 7. Hard-boiled eggs 8. Peanut butter celery sticks 9. No-bake energy bites 10. Cheese slices/ Cheese Stick 11. Handful of almonds 12. Roasted chickpeas 13. Hummus and veggies 14. Cottage Cheese 15. Celery/fruit with peanut butter 16. Beef sticks (Grass-fed, natural ingredients) 17. Protein bars 18. Canned Higden 19. Reza pudding 20. Homemade granola - rolled oats, nuts, and a little sweetener like honey- 1/4 cup serving 21. Pumpkin seeds 22. Nut butter 23. Protein shakes 24. Edamame 25. Avocado and chicken salad 26. Fruit and nut bars - natural ingredients without added sugar. 27. Lentil salad 28. Overnight oatmeal 29. Egg muffins 30. Leftover protein or lunch meat documented in this encounter [facility] 02-04-2024 History of Presen t illness Narrative SUBJECTIVE Poly Armando is a 28 year old female here today for a check up on her medical problems. Chief Complaint Patient presents with: Weight Problem HPI Poly Armando is a 28 year old female. She is an established patient. She presents today for follow up to discuss concerns of working on weight loss, wants to lose weight because of having hypertension, IFG, fatty liver. Lowest weight in the past was when she lost weight after and was around 130's. Highest 256. Goal right now is to get around 200. 5% weight loss would be 12.25 pounds. Going to the gym. Started going several times a week. At the gym for about an hour, treadmill or bike for cardio. Getting dizzy at the gym and feels palpitations. Prior 24 hour holter monitor and ECHO did not show any cardiac issues. Drinking water, cut out pop. Has not incorporated strength training yet. Not sleeping great, always tired. Stress is high right now but manageable, mom is having some health issues. Taking the Pristiq. Also on losartan and propanolol. Tries to eat healthy, cutting out/back on carbs, starches, red meats and include more veggies. Typical day: - usually eats first around 1 pm and has a small meal, salad, veggie, yogurt - Has dinner after sports, around 9 pm Does not snack, no coffee drinks. Her medications were reviewed today and her list is now up to date. Medications Current Outpatient Medications Medication Sig propranolol ER (INDERAL LA) 80 mg 24 hr capsule Take 1 capsule by mouth once daily. losartan (COZAAR) 25 mg tablet Take 1 tablet by mouth once daily. desvenlafaxine ER (PRISTIQ) 50 mg 24 hr tablet Take 1 tablet by mouth once daily. metFORMIN (GLUCOPHAGE) 500 mg tablet Take 1 tablet by mouth two times a day with meals. No current facility-administered medications for this visit. ALLERGIES Allergen Reactions Lisinopril Intolerance ACTIVE PROBLEM LIST Elevated Heart Rate With Elevated Blood Pressure and Diagnosis of Hypertension - 01/20/2022 Racing Heart Beat - 01/18/2022 Robert (Generalized Anxiety Disorder) - 11/18/2021 Hypertension, Essential - 11/18/2021 Comment: Hypertensive emergency or severe asymptomatic hypertension absent. No evidence of target organ damage. Lifestyle: never smoker; no use of EtOH Diet: she cooks at home; lots of pasta; she enjoys vegetables and fruits Exercise: no regimen; maybe 1 walk a day with the dogs Hidradenitis Suppurativa - 11/18/2021 Acne Vulgaris - 11/18/2021 Lymph Node Enlargement - 11/18/2021 Generalized Seizures (Hcc) - 03/03/2021 Tension Headaches - 03/03/2021 Headache, Rebound - 03/03/2021 Shortening, Leg, Congenital, Left - 01/04/2021 Scoliosis Concern - 01/04/2021 Seizure Disorder (Hcc) - 01/04/2021 Migraine Without Aura, Not Intractable, With Status Migrainosus - 01/04/2021 Obesity, Class III, BMI >= 40 - 01/03/2021 Social History Tobacco Use Smoking status: Never Smokeless tobacco: Never Vaping Use Vaping Use: Never used Substance Use Topics Alcohol use: Not Currently Drug use: Never Review of Systems Respiratory: Negative. Cardiovascular: Positive for palpitations. Negative for chest pain and leg swelling. Neurological: Positive for dizziness. OBJECTIVE BP 104/70 Pulse 68 Ht 5' 3 (1.60m) Wt 245 lb (111.1kg) SpO2 98% LMP 01/21/2024 BMI 43.41 kg/(m^2). Physical Exam Vitals and nursing note reviewed. Constitutional: General: She is awake. She is not in acute distress. Appearance: Normal appearance. She is well-developed and well-groomed. She is not ill-appearing, toxic-appearing or diaphoretic. HENT: Head: Normocephalic. Right Ear: External ear normal. Left Ear: External ear normal. Nose: Nose normal. Eyes: General: Vision grossly intact. Conjunctiva/sclera: Conjunctivae normal. Pupils: Pupils are equal, round, and reactive to light. Neck: Vascular: No JVD. Trachea: Trachea normal. Pulmonary: Effort: Pulmonary effort is normal. No accessory muscle usage, prolonged expiration or respiratory distress. Musculoskeletal: Cervical back: Neck supple. Skin: General: Skin is warm and dry. Capillary Refill: Capillary refill takes less than 2 seconds. Neurological: General: No focal deficit present. Mental Status: She is alert and oriented to person, place, and time. Mental status is at baseline. Psychiatric: Attention and Perception: Attention and perception normal. Mood and Affect: Mood and affect normal. Speech: Speech normal. Behavior: Behavior normal. Behavior is cooperative. Thought Content: Thought content normal. Cognition and Memory: Cognition and memory normal. Judgment: Judgment normal. ASSESSMENT/PLAN: 1. IFG (impaired fasting glucose) - ICD9: 790.21, ICD10: R73.01 (primary diagnosis) Start metformin for maintaining glucose control. Discussed new medication including but not limited to reason for use, possible side effects, administration, signs and symptoms to monitor for and when to seek medical attention. - METFORMIN 500 MG TABLET 2. Nonalcoholic fatty liver disease without nonalcoholic steatohepatitis (FREY) - ICD9: 571.8, ICD10: K76.0 Weight loss will help to reduce fatty liver. 3. Hypertension, essential - ICD9: 401.9, ICD10: I10 - Controlled - Continue current medications - Recommend home blood pressure monitoring, to bring results to next visit - Encouraged sodium restriction, DASH or Mediterranean diet - Recommend regular aerobic exercise - OUTSIDE VENDOR CARDIAC OUTPATIENT EXTENDED RHYTHM RECORDING (WITHOUT TELEMETRY) - METFORMIN 500 MG TABLET 4. Palpitation - ICD9: 785.1, ICD10: R00.2 24 hour holter was non-diagnostic, will opt for 14 day ZIO since she is getting dizziness and palpitations when working out. - OUTSIDE VENDOR CARDIAC OUTPATIENT EXTENDED RHYTHM RECORDING (WITHOUT TELEMETRY) 5. Dizzy - ICD9: 780.4, ICD10: R42 Reviewed prior labs, we did discuss starting iron supplementation to see if that helps her feel better too, most recent levels were WNL but low end. Discussed possibly repeating labs with follow up. - OUTSIDE VENDOR CARDIAC OUTPATIENT EXTENDED RHYTHM RECORDING (WITHOUT TELEMETRY) 6. Class 3 severe obesity with serious comorbidity and body mass index (BMI) of 40.0 to 44.9 in adult, unspecified obesity type (HCC) - ICD9: 278.01, V85.41, ICD10: E66.01, Z68.41 Weight decreasing, down 5 pounds but frustrated that weight is not changing much. - Behavioral intervention, - Pharmacological intervention, and - Add Metformin Cardiac workup and if negative may want to consider phentermine. Portions of this note have been entered by ancillary staff. I have reviewed and when necessary edited, so that they are an adequate record of my encounter with this patient Please note that parts of this document were created using voice recognition software and therefore may contain grammatical errors. Patient verbalizes understanding of instructions from today's visit and in agreement with treatment plan. Questions answered. Agrees to call the office if questions, concerns of issues with acute symptoms not improving or if they worsen. See diagnoses and orders for additional plan(s). Allergies and medications were reviewed, list was updated, and refills given if needed. Past medical, surgical, social, and family history reviewed and updated as appropriate. Encouraged proper diet & exercise as well as compliance with taking medications. Age-appropriate health preventative measures were discussed. . Return in about 5 weeks (around 03/10/2024) for recheck on new medication.. Wilson Wharton APRN-BRIT documented in this encounter [facility] 12-25-2023 Miscellaneous Notes Spoke to pt and she voiced understanding. Please call the patient to advise that because she did not have any significant urinary stones on her most recent CT, this pain is unlikely to be from a kidney stone. Please ask if she is having any urinary symptoms. If so, she should go to the lab to provide a urine specimen as this could be from a urinary tract infection. If she is not having urinary symptoms then it may be from something else from outside the kidneys such as something musculoskeletal and she should follow-up with her primary care physician's office or urgent care for further evaluation. Rosita Godfrey DO documented in this encounter [facility] 12-11-2023 Instructions Rosita Garcia DO - 12/11/2023 2:05 PM EDT Images from the original note were not included. Kidney Stones Kidney stones in the ureter and in the major and minor calyces in the kidney. What is a kidney stone? A kidney stone is a solid mass formed from substances in the urine. These substances are normally found in the urine, but become highly concentrated when there are not enough liquids to flush them out of the body in the urine. These stone-forming substances are: Calcium Oxalate Urate Cysteine Xanthine Phosphate These and other chemicals are the waste products that must exit the body. Kidney stones usually range in size from as small as a grain of sand to a heather. Although rare, some stones can be as large as golf balls. Smaller stones can pass through the urinary tract on their own without any pain or notice. Larger stones can get trapped in the kidney or lodged in the ureters. When this happens, the stones keep urine from exiting the body. Blocking the flow of urine causes severe pain or bleeding. Stones that can t pass on their own are treated with medications or surgery. The decision is based on stone size/shape, location, type, and number of stones. What are the risk factors for developing kidney stones? Risks for developing kidney stones include: Not drinking enough liquids Repeat urinary tract infections Blockage in the urinary tract Family history of kidney stones Health conditions that affect the levels of the substances in the urine that can cause stones to form: Hypercalciuria, which is high calcium levels in the urine High blood pressure Diabetes Obesity Osteoporosis Gout Kidney cysts Cystic fibrosis Parathyroid disease Inflammatory bowel disease Chronic diarrhea Some surgical procedures, including weight loss surgery or other stomach/intestine surgeries Medications: Diuretics ( water pills ) Calcium-based antacids Crixivan (used to treat HIV infections) Topamax and Dilantin (used to treat seizures) Cipro (ciprofloxacin) Ceftriaxone (antibiotics) Certain foods and flavor enhancers including: Animal proteins (meat and poultry) Diets high in salt (sodium) Sugars (fructose, sucrose, and corn syrup) Foods specific to the type of kidney stone formed What are the signs and symptoms of kidney stones? Signs and symptoms include: Pain in the lower back or side of body. Pain can start as a dull ache that may come and go. Pain can become severe and result in a trip to the emergency room. Nausea and/or vomiting with the pain Blood in the urine Pain when urinating Unable to urinate Feeling the need to urinate more often Fever/chills Urine that smells bad or looks cloudy Smaller kidney stones may not cause pain or other symptoms and are able to pass on their own. How are kidney stones diagnosed? Diagnosis starts with a physical exam and review of your medical history. Other tests include: Blood test: to measure how well your kidneys are functioning, to look for signs of infection, and to look for biochemical problems that lead to forming kidney stones. Urine sample test: to look for signs of an infection and to examine the levels of the stone-forming substances - calcium, oxalate, urate, cysteine, xanthine, and phosphate. Imaging tests: to see the size, shape, and location of the stones; determine the most suitable treatment, and sometimes to review the result of treatment. Types of imaging tests used are X-rays, CT scan, and ultrasound. Both X-ray tests and CT scans use a small amount of radiation to create their images. Two types of X-rays are used: a standard X-ray of the urinary tract or a special type of X-ray called an intravenous pyelogram (IVP). If an IVP is ordered, you receive an injection of a dye in your vein before the X-ray is taken. The dye is used to get a sharper image of problems in the kidneys, ureters, and bladder resulting from urine being blocked. A CT scan of the abdomen is an imaging test that creates a three dimensional view of the organs within the abdominal cavity. It is used with or without the injection of a dye in your vein. This test shows the stone size and location and conditions that may have caused the stone to form. In addition, the other organs within this area of the body can be evaluated. An ultrasound of the urinary tract uses sound waves to detect kidney stones and indirect signs of kidney stones, such as changes in the kidney s size and shape. How are kidney stones treated? Treatment options include: No treatment: Allow stones to pass on their own Medications: To relax the ureter to allow stones to pass Minimally-invasive procedures: Procedure carried out by entering the body through a small incision in the skin or through the body s natural openings Surgery No treatment. Depending on the size and location of the kidney stone, sometimes stones can pass through urine on their own. Drinking plenty of liquids helps the kidney stones travel through the urinary tract. Passing the stone may take up to three weeks. Medications. Severe pain, requiring an emergency room visit, can be managed with IV narcotics, IV anti-inflammatory drugs, and IV drugs to manage nausea/vomiting. Stones causing less pain can be managed with an anti-inflammatory drug such as ibuprofen. (Caution: Ask your doctor before taking ibuprofen. This drug can increase the risk of kidney failure if taken while having an acute attack of kidney stones - especially in those who have a history of kidney disease and associated illnesses such as diabetes, hypertension, and obesity.) Other medications may be given to relax the ureter such as tamsulosin (Flomax ) or nifedipine (Adamant , Procardia ) so that the stones can pass on their own. Procedures. There are three types of minimally invasive surgery - ureteroscopy, shock wave lithotripsy, and percutaneous nephrolithotomy: Ureteroscopy. To perform this procedure, a small instrument, called an ureteroscope, is inserted in the urethra, through the bladder, and into the ureter. This instrument allows stones to be seen and then retrieved in a surgical basket or broken apart using a laser. These smaller pieces of kidney stones are then more easily able to exit the body through the urinary tract. Shock wave lithotripsy. In this procedure, the patient is placed on a special type of surgical table or tub. High-energy shock waves are sent through water to the stone(s) location. The shock waves break apart the stones, which are then more easily able exit the body through the urinary tract. Percutaneous nephrolithotomy. When kidney stones can t be treated by the other procedures - either because there are too many stones, the stones are too large or heavy, or because of their location - percutaneous nephrolithotomy is considered. In this procedure, a tube is inserted directly into the kidney through a small incision made in your back. If the stones are large, an ultrasound probe and/or laser are inserted and deliver shock waves to the stones to break them apart. Fragments of stones are either suctioned out (so you do not have to pass them through your urine) or removed through a tube (called a nephrostomy) that has been inserted through the skin and into the kidney. This tube drains urine, as well as any small pieces of stone, into a urine collection bag. This procedure requires a short hospital stay (2 to 3 days). Open stone surgery. Open stone surgery, a major surgical procedure, is rarely performed. It is currently only done in 0.3 to 0.7 percent of cases. How can kidney stones be prevented? Ways to decrease your risk of kidney stones include: Drink more fluids, especially water. Drink 2-3L (64-96 ounces) of liquids per day. Liquids help you stay hydrated. Staying more hydrated helps you urinate more often, w-hich helps flush away the buildup of the substances that cause kidney stones. If you sweat a lot from your activities, be sure to drink more water.Your urine should look like tap water in color (clear to pale yellow). Add lemon/bill moore's slough juice to your water (fresh squeezed or bottled). Avoid dark colored rolando. Clear sodas (sprite, 7up, leslie mist, efrain hanna, etc) are better Limit the amount of salt (sodium) in your diet (<2gms/day). Avoid adding salt to food and avoid processed foods. Lose weight if you are overweight. Moderate your calcium intake-too much or too little calcium causes stones! You should get 800-1200mg of calcium per day (check food labels). Most dietary calcium comes from dairy. For example, 1 8oz glass of milk or two slices of cheese EACH contain about one third of your daily calcium requirements. If you do not like dairy then you should probably start a calcium supplement (calcium citrate is recommended). Limit oxalate-rich foods if you form many calcium oxalate stones (nuts, nut butter, tea, chocolate, dark leafy greens, root vegetables, berries, dark beer, soy, and black pepper in excess) Avoid high doses of Vitamin C (>500mg/day) as it turns into a substance called oxylate that increases stone formation! Avoid high doses of Vitamin D. Diet- Eat a healthy, balanced, low-fat, high-fiber diet (fruits/veggies). Exercise and weight loss- Excess weight increases your risk of several types of stones. Limit the types of foods and drinks that led to the development of your specific type of kidney stone. You may be asked to collect your urine over a 24-hour period. Stone fragments and minerals in the urine can help identify what may have caused your kidney stone. Based on the stone s content, another health rn critical care, a dietitian, can suggest changes in your diet to help decrease your risk of developing more stones. Take medication prescribed by your doctor to help prevent kidney stones based on your specific stone type and any health problems that make you more likely to form a stone. References Neisha STEPHENS, Luis WAY, Janeth M. Less-invasive ways to remove stones from the kidneys and ureters. [facility] Journal of Medicine. 2009;76(10):592-598. Malena Burnette, [facility] Information. Online Health Chat, December 22, 2013. Understanding, Treating, and Preventing Kidney Stones Accessed 02/09/2015. National Kidney and Urologic Disease Information Clearinghouse (NKUDIC). Kidney stones in adults Accessed 02/09/2015. National Kid[employer] Foundation. Kidney Stones Accessed 02/09/2015. Copyright 2580-3203 [facility]. All rights reserved Cystoscopy What is a cystoscopy? A cystoscopy is a procedure done by a urologist, a doctor specializing in the urinary system. During a cystectomy, the urologist uses a scope to look at the inside of the bladder, where urine is stored, and in the urethra, the channel that urine flows through out of the bladder. A cystoscopy may also be used to remove something that shouldn t be there, such as a bladder stone, or to take a biopsy (a sample of tissue) from the bladder lining to analyze it in the lab for further information. The procedure can also help with placing a catheter, which is a thin drainage tube for urine. When is a cystoscopy needed? The cystoscopy procedure is ordered by the urologist when more information is needed about what is happening inside the lower urinary tract. Most often it is used to check for any problems in the bladder and its lining. The procedure is also an important tool to identify what may be causing abnormal problems, such as: Frequent urinary tract infections (UTIs) Hematuria, or blood in the urine Urinary frequency, or urinating more than 8 times a day Urinary urgency, or the sudden, strong urge to urinate Urinary retention, or when the bladder does not empty completely Urinary incontinence, or urine leakage Pain or burning before, during, or after urination Trouble starting the flow of urine, completing urination, or both Abnormal cells found in a urine sample How does a patient prepare for a cystoscopy? Before the procedure is recommended, the urologist will ask about the patient s medical history, current prescription and fwly-vqw-eltbrdz medications, and allergies to medications, including anesthetics. The urologist will explain what the patient can expect after the procedure. The patient may need to give a urine sample to test for a urinary tract infection (UTI). If the patient has a UTI, the urologist may treat the infection with antibiotics before performing a cystoscopy. The urologist or nurse may ask the patient to drink plenty of liquids, and to urinate immediately before the procedure. What happens during a cystoscopy procedure? The cystoscopy procedure usually takes about 30 minutes and is done on an outpatient basis. The urologist will recommend that the patient empty his or her bladder before the procedure begins. The bovb-hy-ieya process may be similar to this: The patient will be lying on an exam table. The urologist may place some gel or a local anesthetic in the patient s urethra to aid in reducing any discomfort while the procedure is taking place. The urologist will gently insert the cystoscope through the urethra into the bladder. The patient may feel discomfort or a pressure sensation. The cystoscope is a long, thin tube with a lens on one end that the urologist looks through or, on a camera-equipped scope, visualizes on a monitor. The other end of the cystoscope that is inserted into the urethra has a tiny lens with a light that allows the urologist to look inside the urethra and bladder. There are two types of cystoscopes. One has a flexible insertion tube while the other is stiff. Once the cystoscope is inserted, the urologist will need to instill some sterile water or a normal saline solution from the cystoscope into the bladder. The water /saline fills and stretches the bladder so the urologist can get a better view of the bladder wall. As the liquid enters the bladder, the patient may again feel some discomfort as well as the urge to urinate. If necessary, the urologist can remove some of the liquid from the bladder during the procedure. Once the procedure is over, the urologist may drain the patient s bladder, or ask the patient to use the bathroom to urinate before he or she leaves the office. During the brief procedure, the urologist examines the lining of the urethra as the cystoscope passes through it and then into the bladder. Once the cystoscope reaches the bladder, the urologist examines the lining of the bladder. During the procedure, the urologist can remove a bladder stone or take a biopsy if needed. Sometimes a monitor is set up in the doctor s office so that both the urologist and patient can watch the procedure as it is taking place. What does the urologist look for during a cystoscopy? The urologist will be looking for anything that appears unusual. The bladder wall should be smooth, and there should not be any blockages in the lower urinary tract. During a cystoscopy, the urologist is able to see: Bladder stones: A small stone-like mass that forms from minerals in the urine. It usually forms when urine does not completely leave the bladder and the minerals in the urine crystallize. If not treated, they can cause pain and lead to blood in the urine. A stone can also cause a blockage so that urine cannot leave the bladder. Abnormal tissue, polyps, tumors, or cancer in the urethra or bladder Stricture, or a narrowing of the urethra: This could be a symptom of an enlarged prostate in men or of scar tissue in the urethra. During the cystoscopy, can the urologist treat some problems? During a cystoscopy, the urologist may be able to treat minor problems such as bleeding in the bladder or blockage in the urethra. The urologist may also use a cystoscopy to: Remove a small stone in the bladder or urethra Remove or treat abnormal tissue, polyps, and certain tumors Inject medication into the urethra wall or the bladder to treat urinary leakage What happens after the cystoscopy procedure? Typically, a cystoscopy is done in the urologist s office and afterwards most patients go home the same day as the procedure. Sometimes after a cystoscopy procedure, the patient may: Feel a burning or soreness around the urethra Feel slight burning while urinating Notice small flecks of blood in the urine Feel mild discomfort in the bladder area or kidney area when urinating Need to urinate frequently or urgently These problems should not last more than a day after the procedure. If pain persists, bloody urine lasts longer than 48 hours, or the patient develops a fever, the patient should call the doctor. Occasionally, the patient may have an increase in urinary frequency for the first 24 hours after the procedure. There may be also a change in the color of the urine (it may be darker, or look pink or red due to mild bleeding). This is common, especially if a biopsy was taken. After the procedure, the urologist may recommend that the patient: Drink 16 ounces of water each hour for 2 hours after the procedure Take a warm bath to help ease the burning feeling Place a warm, damp washcloth over the urethral opening to relieve discomfort Take an dnyx-[id number] pain medicine If necessary, the urologist may prescribe an antibiotic to take for a couple of days after the procedure to prevent an infection. If you have severe pain, chills, or fever (these could be signs of an infection), it is important to call the urologist s office and explain the symptoms. What are the risks of cystoscopy? Every patient is different, and the urologist will take into consideration each patient s specific medical history when explaining possible complications from the procedure. Although minimal, the risks of cystoscopy may include: Urinary tract infections (UTI) Bleeding Abdominal pain Burning or discomfort during urination Possible injury to the urethra or bladder Narrowing of the urethra because of scar tissue formation Trouble urinating due to swelling of surrounding tissues If any of the following symptoms occur after a cystoscopy, you should call the urologist right away: Inability to urinate and the discomfort of a full bladder Burning or discomfort during urination that lasts more than 2 days Bright red urine or blood clots in the urine Fever Severe discomfort References: NIH: National [place] of Diabetes and Digestive and Kidney Diseases. Cystoscopy and Ureteroscopy Accessed 03/22/2017. Summer Burnette, Saroj D, Treva H, Joaquin COYLE. The History of Cystoscopy in Urology, Internet Journal of Urology. 14,1 (2014) [employer] Accessed 03/22/2017. [facility]. What is Cystoscopy? Accessed 03/22/2017. Copyright 5441-9731 [facility]. All rights reserved. documented in this encounter [facility] 12-11-2023 History of Presen t illness Narrative PVR 0 ml Images from the original note were not included. [facility] [place] NEW CONSULT NOTE/NEW PATIENT VISIT/HISTORY AND PHYSICAL: Referring Provider: Wilson Wharton APRN.CNP PCP: Wilson Wharton APRN.CNP Date of Service: 12/11/2023 SUBJECTIVE Chief Complaint: Consult (Patient states that a month ago she had flank pain and hematuria and went to the ER on 11/03/23. Patient had CT and US completed and was told she had kidney stone. Patient states that will occasionally have the flank pain but no other side effects currently. Denies any pain/ burning with urination. Patient does get up 3 times at night to urinate on a regular basis. ) History of Present Illness: Poly Armando is a 28 year old female seen in consultation at the request of Wilson Wharton APRN.CNP for evaluation of left punctate renal stone. Patient reports that she randomly has a pain on the R side during voiding that is fairly sharp. It stops after urinating. She was given Flomax which she has now d/c. She denies gross hematuria. Had UTIs during . At time of ER visit had persistent sharp stabbing R sided pain from groin to the RLQ and low back. It improved w/Bentyl and Flomax. Did have n/v at that time (none now) and had fevers Had stone in 2014 that she passed. Believes saw Gigax in past. This was the only stone she had in past. Urinary Symptoms: Frequency: No Urgency: No Nocturia: 3 times per night to void. Stress urinary incontinence: No Urgency urinary incontinence: No UTIs: 0 UTI's in the last year. She denies any history of hematuria. Fluid intake: drinks 4, 16 oz bottles; usually doesn't drink much water at night; no coffee/tea either Bowel Symptoms: Stool consistency: normal Pelvic Organ Prolapse Symptoms and History: Number of children: 3. section: 3. Review of Systems: Genitourinary: SEE HPI Constitutional: unintentional weight loss - denies, fevers - denies Cardiovascular: new or worsening chest pain - denies Respiratory: new or worsening shortness of breath - denies Gastrointestinal: constipation - denies, vomiting - denies currently (had in past) Hematologic/Lymphatic: easy bleeding or bruising - denies Past Medical History: -Patient has a past medical history of Headaches and Seizure (HCC). Past Surgical History: -Patient has a past surgical history that includes anesth, section and ligate fallopian tube. Medications: -Patient has a current medication list which includes the following prescription(s): propranolol er, losartan, desvenlafaxine er, and tamsulosin. Allergies: -Patient is allergic to lisinopril. Family History: -Patient family history includes No Known Problems in her father and mother. Social History: -Patient reports that she has never smoked. She has never used smokeless tobacco. She reports that she does not currently use alcohol. She reports that she does not use drugs. 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 OBJECTIVE Physical Exam: BP 125/81 Pulse 86 Wt 113.4 kg (250 lb) LMP 10/27/2023 SpO2 99% BMI 44.29 kg/m Constitutional: Well-developed, well-nourished. No acute distress. Psych: Normal mood and affect. Memory intact. Eyes: Lids appear normal. Conjunctivae are not injected. ENMT: External ears are normal. Hearing is grossly normal. Respiratory: Normal respiratory effort, no acute respiratory distress. No audible wheeze. Skin: Warm and dry. No visible rashes. Musculoskeletal: Ambulatory: Yes : No CVA TTP, no Pro Post-Void Residual (PVR) by Bladder Scan: In order to evaluate bladder emptying, a postvoid residual was performed and patient agreed to this procedure. Procedure: The ultrasound unit was placed on the patient's abdomen in the suprapubic region after the patient had voided. A PVR of 0 ml was obtained by bladder scan. Laboratory Results: Urine dipstick shows: URINE POC GLUCOSE UA (POCT) Negative 12/11/2023 BILIRUBIN UA (POCT) Negative 12/11/2023 KETONE UA (POCT) Negative 12/11/2023 SPECIFIC GRAVITY UA (POCT) 1.015 12/11/2023 HEMOGLOBIN/BLOOD UA (POCT) Trace-intact 12/11/2023 PH UA (POCT) 6.0 12/11/2023 PROTEIN UA (POCT) Negative 12/11/2023 UROBILINOGEN UA (POCT) 0.2 12/11/2023 NITRITE UA (POCT) Negative 12/11/2023 LEUKOCYTES UA (POCT) Negative 12/11/2023 COLOR UA (POCT) Yellow 12/11/2023 CLARITY UA (POCT) Clear 12/11/2023 Creatinine Date Value Ref Range Status 11/05/2023 0.83 0.58 - 0.96 mg/dL Final 03/08/2023 0.74 0.50 - 0.90 mg/dL Final 10/17/2022 0.72 0.58 - 0.96 mg/dL Final 01/04/2022 0.80 0.50 - 0.90 mg/dL Final Culture Results - Past 1 Year Culture 10/23/2023 10,000 -<50,000 CFU/ml Normal urogenital joon 11/05/2023 10,000 -<50,000 CFU/ml Normal urogenital joon Susceptibility Tests - Past 1 Year Collected Organism 10/23/23 Normal urogenital joon 11/05/23 Normal urogenital joon ASSESSMENT/PLAN: 1. Left nephrolithiasis - ICD9: 592.0, ICD10: N20.0 (primary diagnosis) - chronic, stable - pt had last stones 2014 that she passed - CT reviewed and agree for punctate L renal stone that is not causing her discomfort, will observe for now - discussed stone prevention therapies; no 24 hour urine unless stone burden becomes more significant - UA DIP, URINE (POC) - URINALYSIS, WITH MICROSCOPIC 2. Microscopic hematuria - ICD9: 599.72, ICD10: R31.29 - chronic stable - etiology unknown Medical records personally reviewed and found significant for: Visit with Wilson Wharton APRN.BOOM MASTER/referring provider on 11/07/2023 notes reviewed and show: read exchange Mychart 11/07/2023 where pt reported hematuria - Read UA and in ER 6-10 RBC - We discussed possible benign and malignant causes of hematuria including kidney cancer, bladder cancer, upper tract urothelial carcinoma, stones, infections, kidney diseases, strictures/stenosis - Given this, advised the patient that a work-up would be performed - Again CT w/o any abnormalities Next step would be cysto next visit - UA DIP, URINE (POC) - URINALYSIS, WITH MICROSCOPIC 3. Nocturia - ICD9: 788.43, ICD10: R35.1 - chronic, x3 - bladder diary and hat given Plan: F/u cysto, review bladder diary, annual imaging for stones -Patient will call the clinic or use [facility] should anything change or any new issues arise -All questions were answered Rosita Godfrey DO Staff Urologist Consultation requested by Wilson Wharton APRN for an opinion regarding left tiny renal stone, hematuria. My final recommendations will be communicated back to the requesting physician by way of shared medical record or letter via US mail Medical Decision Making: Problems: Moderate: 2+ stable chronic illnesses Data: Unique source(s) for external note(s) reviewed: 1 Unique test result(s) reviewed: 1 Unique test(s) ordered: 1 Risk: Low: Low risk from testing/treatment Medical Decision Making Level: 4 - Moderate Please note: This note has been produced using speech recognition software and may contain errors related to that system including grammar, punctuation, spelling, gender and words and phrases that may be inappropriate. documented in this encounter [facility] 11-28-2023 Miscellaneous Notes Please see message from pt. Do you want to see pt in office? Marcin Hardy LPN documented in this encounter [facility] 11-05-2023 Miscellaneous Notes Called patient to discuss results. Also discussed results with OLGA Machado. Wilson to follow up on hepatic steatosis. Based on RLQ, this provider and Wilson PCP recommend patient goes to ER for further evaluation. Patient verbalizes understanding. Patient to follow up if her periods remain heavy. Milind Bolaños APRN.BRIT documented in this encounter [facility] 11-05-2023 History of Presen t illness Narrative Radiology Service Progress Note PATIENT NAME: Poly Armando DATE OF SERVICE: November 05, 2023 TIME: 2:38 PM PATIENT IDENTITY VERIFICATION COMPLETED USING TWO (2) IDENTIFIERS: Name and Date of confirmed by patient verbally. FALL SCREENING: Has the patient had 2 falls in the last year or 1 fall with injury or currently using an Ambulatory Assistive Device (Walker, Cane, Wheelchair, Crutches, etc.)? No PATIENT GENDER DATA: Female. status: : No status: NO. PATIENT RELEVANT IMPLANT DATA REVIEWED: Not Applicable PATIENT PRESENTS WITH AN IMPLANTABLE OR ATTACHED GEOGRAPHIC INFORMATION SYSTEMS ENGINEER: No RADIOLOGY DEPARTMENT: Ultrasound PERIPHERAL IV DATA: Not applicable SIGNED BY: Rekha Zavala RDMS RVDeyanira November 05, 2023 2:38 PM documented in this encounter [facility] 11-05-2023 History of Presen t illness Narrative Control Clerk offered: Patient declines. Poly Armando is a 28 year old female who presents for problem visit of pelvic pain. HPI: Poly reports that she has had pain for about 2 weeks. It started as abdominal pain and bloating. She thought she had a stomach bug. It then turned into more localized pelvic pain, mostly to the left lower quadrant. She saw her PCP who tested for BV/yeast, which was negative. Pelvic ultrasound showed fibroids: Size 39 mm x 27 mm x 38 mm. Mean 35.0 mm. Vol 21.616 ml Size 35 mm x 25 mm x 34 mm. Mean 31.2 mm. Vol 15.319 ml She now denies bloating, but reports sharp, right lower abdominal pain that extends to her groin and will shoot up to her RLQ. Rates it a 6/10. It also radiates to her right lower back. Her last period was very painful and heavy. It was 8 days long. She bled through a tampon or pad in 1.5 hours. Does not use hormonal control. Denies concerns for STDs. OB History No obstetric history on file. Utility Manager History LMP: 10/27/2023, Having periods Age at Menarche: Age at First : Age at Menopause: Utility Manager History Comments: Sexual Activity: No sexual activity data on record; No partner data on record Contraception: No contraception data on record PAST MEDICAL HISTORY Diagnosis Date Headaches Seizure (HCC) PAST SURGICAL HISTORY Procedure Laterality Date ANESTH, SECTION 2012,2014,2017 LIGATE FALLOPIAN TUBE FAMILY HISTORY Problem Relation Age of Onset No Known Problems Mother No Known Problems Father Social History Tobacco Use Smoking status: Never Smokeless tobacco: Never Vaping Use Vaping Use: Never used Substance Use Topics Alcohol use: Not Currently Drug use: Never Current Outpatient Medications Medication Sig desvenlafaxine ER (PRISTIQ) 50 mg 24 hr tablet Take 1 tablet by mouth once daily. propranolol ER (INDERAL LA) 80 mg 24 hr capsule Take 1 capsule by mouth once daily. (Patient not taking: Reported on 10/23/2023) losartan (COZAAR) 25 mg tablet Take 1 tablet by mouth once daily. (Patient not taking: Reported on 11/05/2023) iron polysaccharide complex (NU-IRON) 150 mg iron capsule Take 1 capsule by mouth once daily. (Patient not taking: Reported on 10/23/2023) ascorbic acid, vitamin C, (VITAMIN C) 500 mg tablet Take 1 tablet by mouth once daily. To be taken with iron to help absorption (Patient not taking: Reported on 10/23/2023) Cholecalciferol, Vitamin D3, 50 mcg (2,000 unit) cap Take 1 capsule by mouth once daily. (Patient not taking: Reported on 10/23/2023) No current facility-administered medications for this visit. Allergies As of Date: 11/05/2023 Allergen Noted Reaction LISINOPRIL 01/20/2022 Intolerance Fully Assessed 11/05/2023 REVIEW OF SYSTEMS Abdomen: No bloating, early satiety, indigestion, or increased flatulence. No abdominal pain, nausea, vomiting, diarrhea, or constipation. Bladder: No dysuria, gross hematuria, urinary frequency, urinary urgency, or incontinence. Breast: No breast lumps, nipple d/c, overlying skin changes, redness or skin retraction. Expanded ROS: N/A Allergies and current medication updated:Yes EXAM: Wt 250 lb (113.4kg) LMP 10/27/2023 GENERAL: pleasant, female in no apparent distress HEENT: Normocephalic, atraumatic, mucus membranes moist, and no lesions NECK: Supple, full range of motion, no adenopathy, and thyroid normal DERMATOLOGY: Normal, without lesions, non-icteric, and non-hirsute CHEST: Normal inspiratory effort ABDOMEN: soft, non-tender, and no masses. No signs of acute abdomen. Negative for CVA tenderness. NEURO: alert and oriented x3,exam grossly non-focal EXTREMITIES: normal ASSESSMENT AND PLAN: Pelvic pain - ICD9: [id number], ICD10: R10.2 (primary diagnosis) History of kidney stones - ICD9: V13.01, ICD10: Z87.442 - US KIDNEY/BLADDER - URINE CULTURE - If imaging negative, recommend ER for further evaluation Uterine leiomyoma, unspecified location - ICD9: 218.9, ICD10: D25.9 - Explained small findings to patient, likely not cause of pain this severe and sharp Abnormal uterine bleeding - ICD9: 626.9, ICD10: N93.9 - Does not prefer hormonal contraception - TSH BLD - T4 FREE/FREE THYROX - CBC - ESTRADIOL-17B BLD - FSH BLD - HGB A1C Milind Bolaños APRN.CNP Medical Decision Making: Problems: Moderate: New problem with uncertain prognosis Data: Unique test(s) ordered: 3+ Risk: Low: Low risk from testing/treatment Medical Decision Making Level: 4 - Moderate documented in this encounter [facility] 10-30-2023 Miscellaneous Notes Electronic PA completed for desvenlafaxine Er and was approved. Prior Authorization History desvenlafaxine ER (PRISTIQ) 50 mg 24 hr tablet Approval Details Authorized from September 30, 2023 to October 29, 2024 Information received electronically from payer Pt notified via my chart. documented in this encounter [facility] 03-14-2023 Miscellaneous Notes [place] [facility] [place] Attempted to contact patient. No answer. Try again. Linda Mojica RN Attempted to contact patient. No answer. Try again. Linda Mojica RN documented in this encounter [facility] 01-23-2023 Miscellaneous Notes Will trial the modafinil Electronic PA denied will not cover drug: Dear WILSON DIO: We reviewed the information you provided in support of a request to obtain Sunosi 75 mg TABLET under your patient s plan. We are unable to approve this request for the following reason(s): ? Coverage is provided for the diagnosis of excessive daytime sleepiness associated with obstructive sleep apnea or excessive daytime sleepiness associated with narcolepsy. Coverage cannot be authorized at this time. We based this decision on the prior authorization criteria for: [address]13 [employer] - Sunosi PA Policy with [employer] We are providing you with a copy of the Notice of Adverse Benefit Determination that we sent to your patient. The appeal rights and procedures are explained in the notice. If you have any questions or wish to discuss this determination with a pharmacist or physician, please call us at [phone], 24 hours a day, 7 days a week. Sincerely, Coverage Review Department [employer] Electronic PA completed. Because of her seizure history I would prefer not to use the modafinil or armodafinil because they can effect the seizure threshold. Do you think PA would be approved in light of that info? Images from the original note were not included. Per PA for the solriamfetol 75mg Please review formulary would changing to formulary be appropriate? documented in this encounter [facility] 01-22-2023 Instructions Wilson Wharton APRN.CNP - 01/22/2023 11:[address] Salmon for allergies Address: [address] [place] [id number] documented in this encounter [facility] 01-22-2023 History of Presen t illness Narrative SUBJECTIVE Poly Armando is a 27 year old female here today for a check up on her medical problems. Chief Complaint Patient presents with: Fatigue HPI Poly Armando is a 27 year old female who presents today for follow up. Issues with persistent fatigue. Work up has included labs, CBC, iron, TSH, T3, T4, B12, CMP unremarkable. A1c was 5.7%, vitamin d low at 27.6. On supplemental vitamin d. Sleep study showed mild sleep-disordered breathing and snoring. She had an ENT eval and they felt her symptoms were not severe enough for ENT intervention. She has had issues with dizziness and blood pressure elevated but got back on her blood pressure medications and this is now better with her medicine. She continues to have persistent fatigue, day time sleepiness. Occurs daily. Sleeps on average 8 hours a night but wakes feeling tired, tired through out the day, may nap several times. Long periods in the car driving for 20+ minutes cause her to feel tired/drowsy. Not sure what is causing her symptoms. Mood key feeling okay on current medications but depressed that all she wants to do is sleep. Wondering about allergies causing her symptoms. Her medications were reviewed today and her list is now up to date. Medications Current Outpatient Medications Medication Sig ascorbic acid, vitamin C, (VITAMIN C) 500 mg tablet Take 1 tablet by mouth once daily. To be taken with iron to help absorption Cholecalciferol, Vitamin D3, 50 mcg (2,000 unit) cap Take 1 capsule by mouth once daily. propranolol ER (INDERAL LA) 80 mg 24 hr capsule Take 1 capsule by mouth once daily. losartan (COZAAR) 25 mg tablet Take 1 tablet by mouth once daily. desvenlafaxine ER (PRISTIQ) 100 mg 24 hr tablet Take 1 tablet by mouth once daily. buPROPion XL (WELLBUTRIN XL) 150 mg 24 hr tablet Take 1 tablet by mouth once daily. iron polysaccharide complex (NU-IRON) 150 mg iron capsule Take 1 capsule by mouth once daily. solriamfetoL 75 mg tablet (SUNOSI) Take 1 tablet by mouth every morning for 60 days. No current facility-administered medications for this visit. ALLERGIES Allergen Reactions Lisinopril Intolerance ACTIVE PROBLEM LIST Elevated Heart Rate With Elevated Blood Pressure and Diagnosis of Hypertension - 01/20/2022 Racing Heart Beat - 01/18/2022 Robert (Generalized Anxiety Disorder) - 11/18/2021 Hypertension, Essential - 11/18/2021 Comment: Hypertensive emergency or severe asymptomatic hypertension absent. No evidence of target organ damage. Lifestyle: never smoker; no use of EtOH Diet: she cooks at home; lots of pasta; she enjoys vegetables and fruits Exercise: no regimen; maybe 1 walk a day with the dogs Hidradenitis Suppurativa - 11/18/2021 Acne Vulgaris - 11/18/2021 Lymph Node Enlargement - 11/18/2021 Generalized Seizures (Hcc) - 03/03/2021 Tension Headaches - 03/03/2021 Headache, Rebound - 03/03/2021 Shortening, Leg, Congenital, Left - 01/04/2021 Scoliosis Concern - 01/04/2021 Seizure Disorder (Hcc) - 01/04/2021 Migraine Without Aura, Not Intractable, With Status Migrainosus - 01/04/2021 Obesity, Class III, BMI >= 40 - 01/03/2021 Social History Tobacco Use Smoking status: Never Smokeless tobacco: Never Vaping Use Vaping Use: Never used Substance Use Topics Alcohol use: Not Currently Drug use: Never Review of Systems Constitutional: Positive for fatigue. Psychiatric/Behavioral: Positive for dysphoric mood and sleep disturbance. Negative for self-injury and suicidal ideas. The patient is nervous/anxious. OBJECTIVE BP 110/84 Pulse 90 Wt 251 lb (113.9kg) SpO2 99% LMP 01/04/2023 Physical Exam Vitals and nursing note reviewed. Constitutional: General: She is awake. She is not in acute distress. Appearance: Normal appearance. She is well-developed and well-groomed. She is obese. She is not ill-appearing, toxic-appearing or diaphoretic. HENT: Head: Normocephalic. Right Ear: External ear normal. Left Ear: External ear normal. Nose: Nose normal. Eyes: General: Vision grossly intact. Conjunctiva/sclera: Conjunctivae normal. Pupils: Pupils are equal, round, and reactive to light. Neck: Vascular: No JVD. Trachea: Trachea normal. Pulmonary: Effort: Pulmonary effort is normal. No accessory muscle usage, prolonged expiration or respiratory distress. Musculoskeletal: Cervical back: Neck supple. Skin: General: Skin is warm and dry. Capillary Refill: Capillary refill takes less than 2 seconds. Neurological: General: No focal deficit present. Mental Status: She is alert and oriented to person, place, and time. Mental status is at baseline. Psychiatric: Attention and Perception: Attention and perception normal. Mood and Affect: Mood and affect normal. Speech: Speech normal. Behavior: Behavior normal. Behavior is cooperative. Thought Content: Thought content normal. Cognition and Memory: Cognition and memory normal. Judgment: Judgment normal. ASSESSMENT/PLAN: 1. Excessive daytime sleepiness - ICD9: 780.54, ICD10: G47.19 (primary diagnosis) Persistent. Labs overall stable, sleep study does not indicate sleep apnea and ENT did not feel intervention on their part would impact her daytime sleepiness. Trial on Sunosi. - SOLRIAMFETOL 75 MG TABLET 2. Other fatigue - ICD9: 780.79, ICD10: R53.83 See above. - POLYSACCHARIDE IRON COMPLEX 150 MG IRON CAPSULE - SOLRIAMFETOL 75 MG TABLET 3. Hypertension, essential - ICD9: 401.9, ICD10: I10 - good control - Continue current medication(s) - Encouraged dietary sodium restriction/DASH diet - Recommended regular aerobic exercise. - Recommend home blood pressure monitoring, to bring results in on next visit - Reviewed risks of HTN and principles of treatment - PROPRANOLOL ER 80 MG CAPSULE,24 HR,EXTENDED RELEASE - LOSARTAN 25 MG TABLET 4. ROBERT (generalized anxiety disorder) - ICD9: 300.02, ICD10: F41.1 Stable. - PROPRANOLOL ER 80 MG CAPSULE,24 HR,EXTENDED RELEASE - DESVENLAFAXINE SUCCINATE ER 100 MG TABLET,EXTENDED RELEASE 24 HR 5. Moderate episode of recurrent major depressive disorder (HCC) - ICD9: 296.32, ICD10: F33.1 Stable. - DESVENLAFAXINE SUCCINATE ER 100 MG TABLET,EXTENDED RELEASE 24 HR - BUPROPION XL 150 MG TAB 6. Multiple allergies - ICD9: V15.09, ICD10: Z88.9 - CONSULT TO ALLERGY/IMMUNOLOGY Portions of this note have been entered by ancillary staff. I have reviewed and when necessary edited, so that they are an adequate record of my encounter with this patient Please note that parts of this document were created using voice recognition software and therefore may contain grammatical errors. Patient verbalizes understanding of instructions from today's visit and in agreement with treatment plan. Questions answered. Agrees to call the office if questions, concerns of issues with acute symptoms not improving or if they worsen. See diagnoses and orders for additional plan(s). Allergies and medications were reviewed, list was updated, and refills given if needed. Past medical, surgical, social, and family history reviewed and updated as appropriate. Encouraged proper diet & exercise as well as compliance with taking medications. Age-appropriate health preventative measures were discussed. Return if symptoms worsen or fail to improve. MARK Machado documented in this encounter [facility] 12-29-2022 Miscellaneous Notes See pt message. I did ask some further questions to pt. Annamarie Yin Ma documented in this encounter [facility] 11-20-2022 Miscellaneous Notes Please send ENT referral to [facility] in [place]. Thanks documented in this encounter [facility] 10-17-2022 History of Presen t illness Narrative SUBJECTIVE Poly Armando is a 27 year old female here today for a check up on her medical problems. Chief Complaint Patient presents with: Medication Follow-up HPI Poly Armando is a 27 year old female who is an established patient from the [facility] [place] office. She presents today for a follow up on mood. She voices concerns today that she is feeling like she just wants to sleep a lot. Tired all of the time. Feeling no motivation. Fixates on sleeping, falls asleep quickly. Does not wake feeling rested. Snores. No apnea that she knows of. No prior sleep study. Headaches getting better, history of migraines. Off of Lamictal, prior seizure disorder with no seizure activity in the last several years. Zoloft is helping some, had been doing okay but now feeling like mood is worse. Her medications were reviewed today and her list is now up to date. She is compliant on taking her medications: Yes She is tolerating her medication(s) without side effects: Yes Medications Current Outpatient Medications Medication Sig amLODIPine (NORVASC) 10 mg tablet Take 1 tablet by mouth once daily. sertraline (ZOLOFT) 100 mg tablet Take 1 tablet by mouth once daily. propranolol ER (INDERAL LA) 80 mg 24 hr capsule Take 1 capsule by mouth once daily. buPROPion XL (WELLBUTRIN XL) 150 mg 24 hr tablet Take 1 tablet by mouth once daily. losartan (COZAAR) 25 mg tablet Take 1 tablet by mouth once daily. No current facility-administered medications for this visit. ALLERGIES Allergen Reactions Lisinopril Intolerance ACTIVE PROBLEM LIST Elevated Heart Rate With Elevated Blood Pressure and Diagnosis of Hypertension - 01/20/2022 Racing Heart Beat - 01/18/2022 Robert (Generalized Anxiety Disorder) - 11/18/2021 Hypertension, Essential - 11/18/2021 Comment: Hypertensive emergency or severe asymptomatic hypertension absent. No evidence of target organ damage. Lifestyle: never smoker; no use of EtOH Diet: she cooks at home; lots of pasta; she enjoys vegetables and fruits Exercise: no regimen; maybe 1 walk a day with the dogs Hidradenitis Suppurativa - 11/18/2021 Acne Vulgaris - 11/18/2021 Lymph Node Enlargement - 11/18/2021 Generalized Seizures (Hcc) - 03/03/2021 Tension Headaches - 03/03/2021 Headache, Rebound - 03/03/2021 Shortening, Leg, Congenital, Left - 01/04/2021 Scoliosis Concern - 01/04/2021 Seizure Disorder (Hcc) - 01/04/2021 Migraine Without Aura, Not Intractable, With Status Migrainosus - 01/04/2021 Obesity, Class III, BMI >= 40 - 01/03/2021 Social History Tobacco Use Smoking status: Never Smokeless tobacco: Never Vaping Use Vaping Use: Never used Substance Use Topics Alcohol use: Not Currently Drug use: Never Review of Systems Constitutional: Positive for fatigue. Negative for chills, diaphoresis and fever. Psychiatric/Behavioral: Positive for dysphoric mood and sleep disturbance. Negative for self-injury and suicidal ideas. The patient is nervous/anxious. OBJECTIVE BP 120/86 Pulse 81 Wt 248 lb (112.5kg) SpO2 96% LMP 10/14/2022 Physical Exam Vitals and nursing note reviewed. Constitutional: General: She is awake. She is not in acute distress. Appearance: Normal appearance. She is well-developed and well-groomed. She is obese. She is not ill-appearing, toxic-appearing or diaphoretic. HENT: Head: Normocephalic. Right Ear: External ear normal. Left Ear: External ear normal. Nose: Nose normal. Eyes: General: Vision grossly intact. Conjunctiva/sclera: Conjunctivae normal. Pupils: Pupils are equal, round, and reactive to light. Neck: Thyroid: No thyroid mass, thyromegaly or thyroid tenderness. Vascular: No JVD. Trachea: Trachea normal. Cardiovascular: Rate and Rhythm: Normal rate and regular rhythm. Pulses: Normal pulses. Heart sounds: Normal heart sounds. No murmur heard. Pulmonary: Effort: Pulmonary effort is normal. No accessory muscle usage, prolonged expiration or respiratory distress. Breath sounds: Normal breath sounds. Musculoskeletal: Cervical back: Neck supple. Skin: General: Skin is warm and dry. Capillary Refill: Capillary refill takes less than 2 seconds. Neurological: General: No focal deficit present. Mental Status: She is alert and oriented to person, place, and time. Mental status is at baseline. Psychiatric: Attention and Perception: Attention and perception normal. Mood and Affect: Mood and affect normal. Speech: Speech normal. Behavior: Behavior normal. Behavior is cooperative. Thought Content: Thought content normal. Cognition and Memory: Cognition and memory normal. Judgment: Judgment normal. ASSESSMENT/PLAN: 1. Moderate episode of recurrent major depressive disorder (HCC) - ICD9: 296.32, ICD10: F33.1 (primary diagnosis) She is having increased fatigue, possibly due to worsening mood/depression. We will check labs for any metabolic issues contributing. We did have a lengthy discussion about medication options and discussed Wellbutrin, she does have a history of seizures but has not had any activity for some time, she would like to try a low dose of Wellbutrin and see how she tolerates it. She is to stop this immediately if noticing any signs of increased seizures or concerns of associated symptoms. Would not exceed 300 mg for her given her history. - DEPRESSION SCREENING/ASSESSMENT - BUPROPION XL 150 MG TAB 2. ROBERT (generalized anxiety disorder) - ICD9: 300.02, ICD10: F41.1 - IRON + TIBC 3. Other fatigue - ICD9: 780.79, ICD10: R53.83 - IRON + TIBC - COMP METABOLIC PANEL - TSH BLD - VITAMIN D 25 HYDROXY - VITAMIN B12 BLOOD - HGB A1C - DEPRESSION SCREENING/ASSESSMENT - HOME SLEEP APNEA TEST (HSAT) - T3 FREE BLD - T4 FREE/FREE THYROX 4. INDIGO (obstructive sleep apnea) - ICD9: 327.23, ICD10: G47.33 She does have several STOPBANG criteria including snoring, obesity and hypertension. - HOME SLEEP APNEA TEST (HSAT) 5. Seizure disorder (HCC) - ICD9: 345.90, ICD10: G40.909 6. Encounter for therapeutic drug monitoring - ICD9: V58.83, ICD10: Z51.81 - CBC + DIFF - COMP METABOLIC PANEL 7. Encounter for screening for diabetes mellitus - ICD9: V77.1, ICD10: Z13.1 - COMP METABOLIC PANEL - HGB A1C Portions of this note have been entered by ancillary staff. I have reviewed and when necessary edited, so that they are an adequate record of my encounter with this patient Please note that parts of this document were created using voice recognition software and therefore may contain grammatical errors. Patient verbalizes understanding of instructions from today's visit and in agreement with treatment plan. Questions answered. Agrees to call the office if questions, concerns of issues with acute symptoms not improving or if they worsen. See diagnoses and orders for additional plan(s). Allergies and medications were reviewed, list was updated, and refills given if needed. Past medical, surgical, social, and family history reviewed and updated as appropriate. Encouraged proper diet & exercise as well as compliance with taking medications. Age-appropriate health preventative measures were discussed. Return if symptoms worsen or fail to improve. We will work on getting back the testing results and then decide on follow up. Okay to do VV. MARK Machado documented in this encounter [facility] 07-25-2022 Miscellaneous Notes Patient MyChart message requesting the following refill. Requested Prescriptions Pending Prescriptions Disp Refills amLODIPine (NORVASC) 10 mg tablet 30 tablet 0 Sig: Take 1 tablet by mouth once daily. Patient last appointment: 07/07/2022 Patient Phone numbers: [phone] (home) Request is for script(s) to be escript to pharmacy. Rekha Serrato MA documented in this encounter [facility] 07-07-2022 Instructions Wilson Wharton APRN.CNP - 07/07/2022 8:42 AM EDT [facility] Address: [address] [place] [address] documented in this encounter [facility] 07-07-2022 History of Presen t illness Narrative ASSESSMENT/PLAN: 1. ROBERT (generalized anxiety disorder) - ICD9: 300.02, ICD10: F41.1 (primary diagnosis) Anxiety has been worse since stopping the beta ravi, will restart her on propranolol as this may be more effective than the lopressor was. We did discuss as she decreases her Lamictal she may notice anxiety worsening some. Working with neuro on this. Continue on sertraline. The nausea and vomiting may be related to worsening anxiety or possible viral gastroenteritis. Monitor. - SERTRALINE 100 MG TABLET - LAMOTRIGINE 200 MG TABLET - PROPRANOLOL ER 80 MG CAPSULE,24 HR,EXTENDED RELEASE 2. Elevated heart rate with elevated blood pressure and diagnosis of hypertension - ICD9: 401.9, 785.3, ICD10: I10, R00.9 - suboptimal control - Continue current medication(s) - Add propranolol in place of metoprolol. - Encouraged dietary sodium restriction/DASH diet - Recommended regular aerobic exercise. - Recommend home blood pressure monitoring, to bring results in on next visit - Reviewed risks of HTN and principles of treatment - PROPRANOLOL ER 80 MG CAPSULE,24 HR,EXTENDED RELEASE 3. Seizure disorder (HCC) - ICD9: 345.90, ICD10: G40.909 Working with neuro on this. - LAMOTRIGINE 200 MG TABLET Patient verbalizes understanding of instructions from today's visit and in agreement with treatment plan. Questions answered. Agrees to call the office if symptoms do not improve or if they worsen. See diagnoses and orders for additional plan(s). Allergies and medications were reviewed, list was updated, and refills given if needed. Past medical, surgical, social, and family history reviewed and updated as appropriate. Encouraged proper diet & exercise as well as compliance with taking medications. Age appropriate health preventative measures were discussed. Wilson Wharton APRN.BOOM MASTER Return in about 4 weeks (around 08/04/2022). SUBJECTIVE Poly Armando is a 27 year old female here today for a check up on her medical problems. Chief Complaint Patient presents with: Recheck: Sick since Sunday and dizzy. And unable to drive. Was on a beta ravi (metoprolol) until the and was stopped and felt heart racing and chest pain. And is now having high anxiety and restless legs. STERLING Pang presents today for follow up. At her last visit she was seen by another provider for her hypertension and issues/concerns with an elevated heart rate. She had a work up that included an echo that was unremarkable, and a normal Holter monitor. She was started on metoprolol but ran out prior to this appointment so stopped it. Since stopping the medication she is having dizziness, restlessness, worse anxiety and issues with nausea and vomiting. NO sick contacts that she is aware of. Anxiety was not necessarily better with the metoprolol that she had noticed but felt better while taking it along with the Zoloft. Not depressed like she had been. Seeing neurology for Lamictal for history of seizures, no recent activity so planning to wean off of this. Her medications were reviewed today and her list is now up to date. Medications Current Outpatient Medications Medication Sig lamoTRIgine (LAMICTAL) 200 mg tablet Take 1 tablet by mouth once daily. amLODIPine (NORVASC) 10 mg tablet TAKE ONE TABLET BY MOUTH EVERY DAY losartan (COZAAR) 25 mg tablet Take 1 tablet by mouth once daily. amitriptyline (ELAVIL) 50 mg tablet Take 1 tablet by mouth daily at bedtime. sertraline (ZOLOFT) 100 mg tablet Take 1 tablet by mouth once daily. propranolol ER (INDERAL LA) 80 mg 24 hr capsule Take 1 capsule by mouth once daily. No current facility-administered medications for this visit. ALLERGIES Allergen Reactions Lisinopril Intolerance ACTIVE PROBLEM LIST Elevated Heart Rate With Elevated Blood Pressure and Diagnosis of Hypertension - 01/20/2022 Racing Heart Beat - 01/18/2022 Robert (Generalized Anxiety Disorder) - 11/18/2021 Hypertension, Essential - 11/18/2021 Comment: Hypertensive emergency or severe asymptomatic hypertension absent. No evidence of target organ damage. Lifestyle: never smoker; no use of EtOH Diet: she cooks at home; lots of pasta; she enjoys vegetables and fruits Exercise: no regimen; maybe 1 walk a day with the dogs Hidradenitis Suppurativa - 11/18/2021 Acne Vulgaris - 11/18/2021 Lymph Node Enlargement - 11/18/2021 Generalized Seizures (Hcc) - 03/03/2021 Tension Headaches - 03/03/2021 Headache, Rebound - 03/03/2021 Shortening, Leg, Congenital, Left - 01/04/2021 Scoliosis Concern - 01/04/2021 Seizure Disorder (Hcc) - 01/04/2021 Migraine Without Aura, Not Intractable, With Status Migrainosus - 01/04/2021 Obesity, Class III, BMI >= 40 - 01/03/2021 Social History Tobacco Use Smoking status: Never Smokeless tobacco: Never Vaping Use Vaping Use: Never used Substance Use Topics Alcohol use: Not Currently Drug use: Never Review of Systems Constitutional: Negative for chills, diaphoresis, fatigue and fever. Respiratory: Negative. Cardiovascular: Negative. Gastrointestinal: Positive for nausea and vomiting. Negative for abdominal pain, constipation and diarrhea. Psychiatric/Behavioral: Positive for dysphoric mood. Negative for self-injury and suicidal ideas. The patient is nervous/anxious. OBJECTIVE BP 148/89 Pulse 94 Ht 5' 2 (1.58m) Wt 246 lb (111.6kg) SpO2 99% LMP 06/12/2022 BMI 44.98 kg/(m^2). Physical Exam Vitals and nursing note reviewed. Constitutional: General: She is awake. She is not in acute distress. Appearance: She is well-developed and well-groomed. She is obese. She is not ill-appearing, toxic-appearing or diaphoretic. Cardiovascular: Rate and Rhythm: Normal rate and regular rhythm. Heart sounds: Normal heart sounds. Pulmonary: Effort: Pulmonary effort is normal. No respiratory distress. Breath sounds: Normal breath sounds. Skin: General: Skin is warm and dry. Capillary Refill: Capillary refill takes less than 2 seconds. Neurological: General: No focal deficit present. Mental Status: She is alert and oriented to person, place, and time. Mental status is at baseline. Psychiatric: Mood and Affect: Mood normal. Behavior: Behavior normal. Behavior is cooperative. Thought Content: Thought content normal. Judgment: Judgment normal. documented in this encounter [facility] 06-10-2022 Miscellaneous Notes Patient calls requesting refill: Requested Prescriptions Pending Prescriptions Disp Refills amLODIPine (NORVASC) 10 mg tablet [Pharmacy Med Name: amLODIPine Besylate Oral Tablet 10 MG] 30 tablet 0 Sig: TAKE ONE TABLET BY MOUTH EVERY DAY Date of last visit:05/25/2022 Phone #: [phone] (home) [phone] (cell) The patients preferred pharmacy has been captured for this encounter? Yes documented in this encounter [facility] 05-17-2022 Miscellaneous Notes Pharmacy faxes requesting refill: Requested Prescriptions Pending Prescriptions Disp Refills losartan (COZAAR) 25 mg tablet 30 tablet 1 Sig: Take 1 tablet by mouth once daily. Date of last visit:03/19/2022 Phone #: [phone] (home) [phone] (cell) The patients preferred pharmacy has been captured for this encounter? yes documented in this encounter [facility] 03-20-2022 Miscellaneous Notes Patient MyChart message requesting the following refill. Pending Prescriptions Disp Refills SERTRALINE 100 MG TABLET 30 tablet 2 Sig: Take 1 tablet by mouth once daily. GLEN: No Patient last appointment: 03/05/2022 Patient Phone numbers: [phone] (home) Request is for script(s) to be escript to pharmacy. Rekha Serrato MA documented in this encounter [facility] 03-06-2022 Miscellaneous Notes Pharmacy faxes requesting refill: Pending Prescriptions Disp Refills AMLODIPINE 10 MG TABLET 30 tablet 2 Sig: Take 1 tablet by mouth once daily. GLEN: No Date of last visit:02/21/2022 Phone #: [phone] (home) [phone] (cell) The patients preferred pharmacy has been captured for this encounter? yes documented in this encounter [facility] 02-13-2022 History of Presen t illness Narrative SUBJECTIVE: Poly Armando is a 26 year old female here today due to complaint of rash on chest x2 days. Patient states that the rash occurred after application of Holter monitor. Patient complains of rash on upper chest and both sides of lower rib cage. Patient complains that the rash itches. Patient denies swelling, drainage, or fever. Review of Systems Constitutional: Negative. HENT: Negative. Eyes: Negative. Respiratory: Negative. Cardiovascular: Negative. Gastrointestinal: Negative. Genitourinary: Negative. Musculoskeletal: Negative. Skin: Positive for rash (chest). Negative for pallor and wound. Neurological: Negative. ALLERGIES Allergen Reactions Lisinopril Intolerance Current Outpatient Medications Medication Sig Dispense Refill losartan (COZAAR) 25 mg tablet Take 1 tablet by mouth once daily. 30 tablet 0 lamoTRIgine (LAMICTAL) 200 mg tablet Take 1 tablet by mouth twice daily. 60 tablet 11 amitriptyline (ELAVIL) 50 mg tablet Take 1 tablet by mouth daily at bedtime. 30 tablet 11 sertraline (ZOLOFT) 100 mg tablet Take 1 tablet by mouth once daily. 30 tablet 2 amLODIPine (NORVASC) 10 mg tablet Take 1 tablet by mouth once daily. 30 tablet 2 predniSONE (DELTASONE) 20 mg tablet 1 tablet three times a day for 3 days, then 2 times a day for 3 days, the one daily for 3 days. Take with food. 18 tablet 0 No current facility-administered medications for this visit. PAST MEDICAL HISTORY Diagnosis Date Headaches Seizure (HCC) BP 142/82 (BP Site: Left Arm, BP Position: Sitting) Pulse 98 Temp 36.8 C (98.2 F) (Temporal) Resp 16 Ht 157.5 cm (5' 2) Wt 110.1 kg (242 lb 12.8 oz) LMP 10/29/2021 SpO2 98% BMI 44.41 kg/m Physical Exam Constitutional: General: She is not in acute distress. Appearance: Normal appearance. She is obese. She is not toxic-appearing or diaphoretic. HENT: Head: Normocephalic and atraumatic. Eyes: General: No scleral icterus. Conjunctiva/sclera: Conjunctivae normal. Cardiovascular: Rate and Rhythm: Normal rate and regular rhythm. Pulses: Normal pulses. Heart sounds: Normal heart sounds. Pulmonary: Effort: Pulmonary effort is normal. Breath sounds: Normal breath sounds. No wheezing or rales. Musculoskeletal: General: No deformity. Normal range of motion. Cervical back: Normal range of motion and neck supple. No rigidity. Right lower leg: No edema. Left lower leg: No edema. Lymphadenopathy: Cervical: No cervical adenopathy. Skin: General: Skin is warm and dry. Capillary Refill: Capillary refill takes less than 2 seconds. Findings: Rash present. Rash is macular (patches of macular erythema on upper midline chest and bilateral lower rib cage. No swelling or drainage.). Neurological: General: No focal deficit present. Mental Status: She is alert and oriented to person, place, and time. Sensory: Sensation is intact. Motor: Motor function is intact. Coordination: Coordination is intact. Gait: Gait is intact. Psychiatric: Mood and Affect: Mood normal. Behavior: Behavior normal. Thought Content: Thought content normal. Judgment: Judgment normal. ASSESSMENT/PLAN: 1. Contact dermatitis due to adhesives, unspecified contact dermatitis type - ICD9: 692.4, ICD10: L23.1 - PREDNISONE 20 MG TABLET, 9-day taper - Follow up if symptoms worsen or fail to improve. Jair Vanegas APRN.BRIT documented in this encounter [facility] 01-24-2022 Miscellaneous Notes Patient advised. Breanna Izquierdo MA ----- Message from Rekha Winslow DO sent at 01/23/2022 4:22 PM EDT ----- Please let her know that her thyroid study was normal. documented in this encounter [facility] 01-20-2022 Miscellaneous Notes The patient called back and I relayed the message to her. She expressed understanding and had no further questions. She was driving and will call back to get number and make appointment. Loren Grover Left message for patient to call back. Please inform her that I scheduled her 24 hour holter monitor at [facility] for 02/10/22 at 1:00p.m. Patient will need to pre-reg at [phone]. She will also need to schedule a follow up for after her holter. Holter Monitor ordered for pt She works at [employer] and is available after 1245p Will need follow up with Dr Winslow 1 week after Testing is completed Order placed in basket documented in this encounter [facility] 01-20-2022 Nurse Note Venipuncture performed to left antecubital. Number of tubes collected: 1 gold. Pt tolerated lab draw well with no complaints. documented in this encounter [facility] 01-20-2022 History of Presen t illness Narrative SUBJECTIVE Keligh Amber Armando is a 26 year old female presents for check up/problem-based visit. See my note 01/18. No issues since holding the lisinopril. Discussed lifestyle aspects of high blood pressure. See below. Hx is that she was started on propranolol for BP but didn't tolerate this. Then she started on amlodipine and her pressures dropped from the 160s to the 140s. She was started on lisinopril and did not tolerate. Not considering family planning; s/p tubal ligation. Discussed her HR on the last 3 visits has been high. Hx of Holter monitor years ago but she does not remember the results. She is symptomatic of this high HR 3-4x/day. Overview Notes of Problems Addressed This Visit Cardiovascular Hypertension, essential - Primary Hypertensive emergency or severe asymptomatic hypertension absent. No evidence of target organ damage. Lifestyle: never smoker; no use of EtOH Diet: she cooks at home; lots of pasta; she enjoys vegetables and fruits Exercise: no regimen; maybe 1 walk a day with the dogs Relevant Medications losartan (COZAAR) 25 mg tablet Other Relevant Orders TSH BLD HOLTER MONITOR 24 HOUR Elevated heart rate with elevated blood pressure and diagnosis of hypertension Relevant Medications losartan (COZAAR) 25 mg tablet Social History Tobacco Use Smoking status: Never Smoker Smokeless tobacco: Never Used Vaping Use Vaping Use: Never used Substance Use Topics Alcohol use: Not Currently Drug use: Never Review of Systems Complete ROS is negative except as per HPI. OBJECTIVE BP 133/84 Pulse 96 Resp 18 Ht 157.5 cm (5' 2) Wt 110.2 kg (243 lb) LMP 10/29/2021 SpO2 100% BMI 44.45 kg/m BMI 44.45 kg/(m^2) Physical Exam Constitutional: General: She is not in acute distress. Appearance: She is not toxic-appearing. Eyes: Comments: Funduscopic exam wnl Cardiovascular: Rate and Rhythm: Normal rate and regular rhythm. Pulses: Normal pulses. Heart sounds: No murmur heard. No friction rub. No gallop. Musculoskeletal: Right lower leg: No edema. Left lower leg: No edema. Neurological: Mental Status: She is alert. ASSESSMENT/PLAN: Poly was seen today for recheck. Diagnoses and all orders for this visit: Hypertension, essential - TSH BLD; Future - HOLTER MONITOR 24 HOUR; Future - losartan (COZAAR) 25 mg tablet; Take 1 tablet by mouth once daily. Elevated heart rate with elevated blood pressure and diagnosis of hypertension A: has already had BMP, lipid panel and EKG completed and we reviewed normal findings; TSH to round out workup for HTN; discussed Holter monitor to evaluate for dysrhythmia; discussed R/B/A of losartan and she is willing to trial P: 1. Plan as above. Rekha Winslow DO This patient encounter has been generated using voice recognition software. Minor grammatical or spelling errors may be present as a result Portions of this note have been entered by ancillary staff. I have reviewed and when necessary edited, so that they are an adequate record of my encounter with this patient. documented in this encounter [facility] 01-18-2022 History of Presen t illness Narrative SUBJECTIVE Poly Armando is a 26 year old female H significant for seizures, HTN, and ROBERT presents for check up/problem-based visit. C/o heaviness in her abdomen with breathing, shaking and racing heart rate and just not feeling herself since yesterday evening while at work. [place] and these symptoms came on. She denies any inciting event. She thinks this is due to the lisinopril that she started on 01/16 for HTN. Last dose of lisinopril 5 mg every day was last night. She denies lightheadedness, dizziness, CP or SOB (just the heaviness with breathing). She denies any swelling of her eyes or her face. She denies odynophagia, dysphagia, vomiting. Last BM was today and was normal appearing. She says she felt nauseated on the quick drive over to our office but has not felt nauseated outside of this. Denies hx of reflux. When asked if she has any mental health history or hx of panic attacks she reports only depression but ROBERT is listed on her problem list. Denies any recent illness or increase in stress levels. She becomes tearful during exam and says she just doesn't feel like herself and feels like she was a burden coming in to see us this afternoon. She said she didn't want to be seen in the ED if it's nothing and she has 3 kids with her. Overview Notes of Problems Addressed This Visit Neurology Shakiness Cardiovascular Racing heart beat Pulmonary Breathing difficult - Primary Social History Tobacco Use Smoking status: Never Smoker Smokeless tobacco: Never Used Vaping Use Vaping Use: Never used Substance Use Topics Alcohol use: Not Currently Drug use: Never Review of Systems Complete ROS is negative except as per HPI. OBJECTIVE BP 123/87 Pulse 99 Resp 20 LMP 10/29/2021 SpO2 100% No weight on file for this encounter. Physical Exam Constitutional: General: She is not in acute distress. Appearance: She is not toxic-appearing. HENT: Head: Comments: No swelling around the eyes or the mouth Cardiovascular: Rate and Rhythm: Regular rhythm. Tachycardia present. Pulses: Normal pulses. Heart sounds: No murmur heard. No friction rub. No gallop. Pulmonary: Effort: Pulmonary effort is normal. Breath sounds: Normal breath sounds. No wheezing, rhonchi or rales. Abdominal: General: Bowel sounds are normal. There is no distension. Palpations: Abdomen is soft. Comments: Tender to palpation in the epigastric region and she says when I push there she feels like she wants to throw up Neurological: Mental Status: She is alert. ASSESSMENT/PLAN: Diagnoses and all orders for this visit: Breathing difficult Shakiness Racing heart beat A: her symptoms sound less like side effects of lisinopril and more like a panic attack +/- reflux; discussed I see nothing red flag on exam; discussed the most common side effects of lisinopril are dry cough, dizziness and nausea and the most concerning side effect is angioedema and she has none of these issues; however individuals certainly respond differently to medications; I reassured her she is not a burden and we are here to help P: 1. Discontinue lisinopril 5 mg every day for now. 2. Can trial OTC Pepcid or Tums for her epigastric tenderness. 3. RTC on Sunday for reassessment. Rekha Winslow, This patient encounter has been generated using voice recognition software. Minor grammatical or spelling errors may be present as a result Portions of this note have been entered by ancillary staff. I have reviewed and when necessary edited, so that they are an adequate record of my encounter with this patient. documented in this encounter [facility] 01-18-2022 Miscellaneous Notes I returned call to Poly to clarify that she was coming into office today, 01/18/2022 Poly states she just notified the office she was 2 minutes away. Poly called in with elevated blood pressures and call was transferred to [place]. Poly was seen in office 01/12 and was ordered Lisinopril 01/16/2022 Poly picked up her prescription at the pharmacy and took as directed. 01/17/2022 In the morning and in the evening she developed shaking, racing and pounding heart rate and was unable to focus at that time. 01/18/2022 She reports feeling her heart racing and out of breath. Blood pressure 171/95 She is talking in short sentences. Denies feeling light headed and dizzy. Drinking and urinating well I advised ED for further evaluation and she states she has 3 small children and no way to get to ED She states her one child currently has hand-foot and mouth virus. She states if she can be seen in office, her mother can drive her there and sit in the car with the children. I called office to see if Dr Winslow would be able to see Poly today or recommend ED. Staff informed me that Dr Winslow is ok to double book Poly today at the 4:20 slot. I doubled booked Dr Winslow with Poly at 4:20 Poly states her mother will drive her to office. Denies further questions or concerns at this time. documented in this encounter [facility] 01-18-2022 History of Past i llness Narrative Problem Noted Date Resolved Date Breathing difficult 01/18/2022 07/07/2022 Shakiness 01/18/2022 07/07/2022 Elevated blood pressure read ing without diagnosis of hypertension 01/04/2021 12/05/2021 documented as of this encounter (statuses as of 07/07/2022) [address]27-2022 History of Past illness Narrative* Problem Noted Date Resolved Date Breathing difficult 01/18/2022 07/07/2022 Shakiness 01/18/2022 07/07/2022 Elevated blood pressure read ing without diagnosis of hypertension 01/04/2021 12/05/2021 documented as of this encounter (statuses as of 07/25/2022) [address]-2022 History of Past illness Narrative* Problem Noted Date Resolved Date Breathing difficult 01/18/2022 07/07/2022 Shakiness 01/18/2022 07/07/2022 Elevated blood pressure read ing without diagnosis of hypertension 01/04/2021 12/05/2021 documented as of this encounter (statuses as of 07/26/2022) [address]-2022 History of Past illness Narrative* Problem Noted Date Resolved Date Breathing difficult 01/18/2022 07/07/2022 Shakiness 01/18/2022 07/07/2022 Elevated blood pressure read ing without diagnosis of hypertension 01/04/2021 12/05/2021 documented as of this encounter (statuses as of 10/17/2022) [address]-2022 History of Past illness Narrative* Problem Noted Date Resolved Date Breathing difficult 01/18/2022 07/07/2022 Shakiness 01/18/2022 07/07/2022 Elevated blood pressure read ing without diagnosis of hypertension 01/04/2021 12/05/2021 documented as of this encounter (statuses as of 10/20/2022) [address]-2022 History of Past illness Narrative* Problem Noted Date Resolved Date Breathing difficult 01/18/2022 07/07/2022 Shakiness 01/18/2022 07/07/2022 Elevated blood pressure read ing without diagnosis of hypertension 01/04/2021 12/05/2021 documented as of this encounter (statuses as of 11/20/2022) [address]-2022 History of Past illness Narrative* Problem Noted Date Resolved Date Breathing difficult 01/18/2022 07/07/2022 Shakiness 01/18/2022 07/07/2022 Elevated blood pressure read ing without diagnosis of hypertension 01/04/2021 12/05/2021 documented as of this encounter (statuses as of 12/29/2022) [address]-2022 History of Past illness Narrative* Problem Noted Date Resolved Date Breathing difficult 01/18/2022 07/07/2022 Shakiness 01/18/2022 07/07/2022 Elevated blood pressure read ing without diagnosis of hypertension 01/04/2021 12/05/2021 documented as of this encounter (statuses as of 01/22/2023) [address]-2022 History of Past illness Narrative* Problem Noted Date Resolved Date Breathing difficult 01/18/2022 07/07/2022 Shakiness 01/18/2022 07/07/2022 Elevated blood pressure read ing without diagnosis of hypertension 01/04/2021 12/05/2021 documented as of this encounter (statuses as of 01/22/2023) [address]-2022 History of Past illness Narrative* Problem Noted Date Resolved Date Breathing difficult 01/18/2022 07/07/2022 Shakiness 01/18/2022 07/07/2022 Elevated blood pressure read ing without diagnosis of hypertension 01/04/2021 12/05/2021 documented as of this encounter (statuses as of 01/23/2023) [address]-2022 History of Past illness Narrative* Problem Noted Date Resolved Date Breathing difficult 01/18/2022 07/07/2022 Shakiness 01/18/2022 07/07/2022 Elevated blood pressure read ing without diagnosis of hypertension 01/04/2021 12/05/2021 documented as of this encounter (statuses as of 03/09/2023) [address]-2022 History of Past illness Narrative* Problem Noted Date Resolved Date Breathing difficult 01/18/2022 07/07/2022 Shakiness 01/18/2022 07/07/2022 Elevated blood pressure read ing without diagnosis of hypertension 01/04/2021 12/05/2021 documented as of this encounter (statuses as of 03/14/2023) [address]-2022 History of Past illness Narrative* Problem Noted Date Diagnosed Date Resolved Date Breathing difficult 01/18/2022 07/07/20 22 Shakiness 01/18/2022 07/07/2022 Elevated blood pressure read ing without diagnosis of hypertension 01/04/2021 12/05/2021 documented as of this encounter (statuses as of 06/15/2023) [address]-2022 History of Past illness Narrative* Problem Noted Date Diagnosed Date Resolved Date Breathing difficult 01/18/2022 07/07/20 22 Shakiness 01/18/2022 07/07/2022 Elevated blood pressure read ing without diagnosis of hypertension 01/04/2021 12/05/2021 documented as of this encounter (statuses as of 10/30/2023) [address] History of Past illness Narrative* Problem Noted Date Diagnosed Date Resolved Date Breathing difficult 01/18/2022 07/07/20 22 Shakiness 01/18/2022 07/07/2022 Elevated blood pressure read ing without diagnosis of hypertension 01/04/2021 12/05/2021 documented as of this encounter (statuses as of 10/31/2023) [address] History of Past illness Narrative* Problem Noted Date Diagnosed Date Resolved Date Breathing difficult 01/18/2022 07/07/20 22 Shakiness 01/18/2022 07/07/2022 Elevated blood pressure read ing without diagnosis of hypertension 01/04/2021 12/05/2021 documented as of this encounter (statuses as of 11/05/2023) [address]-2022 History of Past illness Narrative* Problem Noted Date Diagnosed Date Resolved Date Breathing difficult 01/18/2022 07/07/20 22 Shakiness 01/18/2022 07/07/2022 Elevated blood pressure read ing without diagnosis of hypertension 01/04/2021 12/05/2021 documented as of this encounter (statuses as of 11/05/2023) [address] History of Past illness Narrative* Problem Noted Date Diagnosed Date Resolved Date Breathing difficult 01/18/2022 07/07/20 22 Shakiness 01/18/2022 07/07/2022 Elevated blood pressure read ing without diagnosis of hypertension 01/04/2021 12/05/2021 documented as of this encounter (statuses as of 11/06/2023) [facility] History of Past illness Narrative* Problem Noted Date Diagnosed Date Resolved Date Breathing difficult 01/18/2022 07/07/20 22 Shakiness 01/18/2022 07/07/2022 Elevated blood pressure read ing without diagnosis of hypertension 01/04/2021 12/05/2021 documented as of this encounter (statuses as of 11/28/2023) [place] [id number] History of Past illness Narrative* Problem Noted Date Diagnosed Date Resolved Date Breathing difficult 01/18/2022 07/07/20 22 Shakiness 01/18/2022 07/07/2022 Elevated blood pressure read ing without diagnosis of hypertension 01/04/2021 12/05/2021 documented as of this encounter (statuses as of 12/11/2023) [facility] History of Past illness Narrative* Problem Noted Date Diagnosed Date Resolved Date Breathing difficult 01/18/2022 07/07/20 22 Shakiness 01/18/2022 07/07/2022 Elevated blood pressure read ing without diagnosis of hypertension 01/04/2021 12/05/2021 documented as of this encounter (statuses as of 12/11/2023) [facility] History of Past illness Narrative* Problem Noted Date Diagnosed Date Resolved Date Breathing difficult 01/18/2022 07/07/20 22 Shakiness 01/18/2022 07/07/2022 Elevated blood pressure read ing without diagnosis of hypertension 01/04/2021 12/05/2021 documented as of this encounter (statuses as of 12/25/2023) [facility]-21-2022 Instructions* Patient Instructions* Patria Armando PA-C - 01/12/2022 11:27 AM EDT FACTS ABOUT THE DASH EATING PLAN Research has found that diet affects the development of high blood pressure, or hypertension (the medical term). Recently, two studies showed that blood pressure can be lowered by following a particular eating plan- called the Dietary Approaches to Stop Hypertension (DASH) eating plan- and reducingthe amount of sodium consumed. While each step alone lowers blood pressure, the combination of the eating plan and reduced sodium intake gives the biggest benefit and may help prevent the development of high blood pressure. This fact sheet, based on the DASH research findings, tells about high blood pressure, and how to follow the Dash eating plan and reduce the amount of sodium you consume. It offers tips on how to start and stay on the eating plan, as well as a week of menus and some recipes. The menus and recipes are given for two levels daily sodium consumption- 2,4000 milligrams (the upper limit of current recommendations by the Federal Government's National High Blood Pressure Education Program (NHBPEP) and the amount used to figure food labels' Nutrition Facts Daily Value and 1,500 milligrams. Those with high blood pressure may especially benefit from following the eating plan and reducing their sodium intake. But the combination is a heart healthy recipe that all adults can follow. What Is High Blood Pressure? Blood pressure is the force of blood against artery zhang. It is measured in millimeters of mercury(mmHg) and recorded as two numbers - systolic pressure (when the heart beats) over diastolic pressure (when the heart relaxes between beats). Both numbers are important. Blood pressure rises and falls during the day. But when it stays elevated over time, then it's called high blood pressure. High blood pressure is dangerous because it makes the heart work too hard, and the high force of the blood flow can harm arteries and organs such as the heart, kidneys, brain, and eyes. High blood pressure often has no warning signs or symptoms. Once it occurs, it usually lasts a lifetime. If uncontrolled, it can lead to heart and kidney disease, stroke, and blindness. High blood pressure affects more than 65 million.or 1 in 3. [place] adults. About 28 percent of [place] adults ages 18 and older, or about 59 million people, have prehypertension, a condition that also increases the chance of heart disease and stroke. High blood pressure is especially common among Americans, who tend to develop it at an earlier age and more often than Whites. It is alsocommon among older Americans. Individuals with normal blood pressure at age 55 have a 90 percent lifetime risk for developing high blood pressure. High blood pressure can be controlled if you take these steps: *Maintain a healthy weight. *Be moderately physically active on most days of the week. *Follow a healthy eating plan, which includes foods lower in sodium. *If you drink alcoholic beverages, do so in moderation. *If you have high blood pressure and are prescribed medication, take it as directed. All steps but the last also help to prevent high blood pressure. Blood Pressure Levels for Adults Normal Systolic (mmHg)- Less than 120- Diastolic Less than 80 Result: Good for you! Prehypertension Systolic (mmHg)- 120-139 - Diastolic 80 -89 Result: Your blood pressure could be a problem. Make changes in what you eat and drink, be physically active, and lose extra weight. If you also have diabetes, see your doctor. Hypertension Systolic (mmHg)- 140- higher- Diastolic 90 or higher Result: You have high blood pressure. Ask your doctor or nurse how to control it. What Is the DASH Eating Plan? Blood pressure can be unhealthy even if it stays only slightly above the normal level of less than 120/80 mmHg. The more your blood pressure rises above normal, the greater the health risk. Scientists supported by the National Heart, Lung, and Blood [place] (NHLBI) conducted two vasques studies. Their findings showed that blood pressures were reduced with an eating plan that is low in saturated fat, cholesterol, and total fat and that emphasizes fruits, vegetables, and fat-free or low-fat milk and milk products. This eating plan known as the DASH eating plan also includes whole grain products, fish, poultry, and nuts. It is reduced in lean red meat, sweets, added sugars, and sugar-containing beverages compared to the typical [place] diet. It is rich in potassium, magnesium, andcalcium, as well as protein and fiber. The first DASH study involved 459 adults with systolic blood pressures of less than 160 mmHg and diastolic pressures of 80 95 mmHg. About 27 percent of the participants had high blood pressure. About50 percent were women and 60 percent were Americans. It compared three eating plans: a planthat includes foods similar to what many Americans regularly eat; a plan that includes foods similar to what many Americans regularly eat plus more fruits and vegetables; and the DASH eating plan. All three plans included about 3,000 milligrams of sodium daily. None of the plans was vegetarian or used specialty foods. Results were dramatic. Participants who followed both the plan that included more fruits and vegetables and the DASH eating plan had reduced blood pressure. But the DASH eating plan had the greatest effect, especially for those with high blood pressure. Furthermore, the blood pressure reductions came fast within 2 weeks of starting the plan. The second DASH study looked at the effect on blood pressure of a reduced dietary sodium intake as participants followed either the DASH eating plan or an eating plan typical of what many Americans consume. This second study involved 412 participants. Participants were randomly assigned to one of the two eating plans and then followed for a month ateach of the three sodium levels. The three sodium levels were a higher intake of about 3,300 milligrams per day (the level consumed by many Americans), an intermediate intake of about 2,300 milligrams per day, and a lower intake of about 1,500 milligramsper day. Results showed that reducing dietary sodium lowered blood pressure for both eating plans. At each sodium level, blood pressure was lower on the DASH eating plan than on the other eating plan. The greatest blood pressure reductions were for the DASH eating plan at the sodium intake of 1,500 milligrams per day. Those with high blood pressure saw the greatest reductions, but those with prehypertension also had large decreases. How Do I Make the DASH? The DASH eating plan used in the studies calls for a certain number of daily servings from various food groups. These are given in box3 on page 8 for 2,000 calories per day. The number of servings you require may vary, depending on your caloric need. The DASH eating plan used along with other lifestyle changes can help you prevent and control blood pressure. If your blood pressures not too high, you may be able to control it entirely by changing your eating habits, losing weight if you are overweight, getting regular physical activity, and cutting down on alcohol. The DASH eating plan also has other benefits, such as lowering LDL ( bad ) cholesterol, which, along with lowering blood pressure, can reduce your risk for getting heart disease. The DASH eating plan was not designed to promote weight loss. But it is rich in lower calorie foods, such as fruits and vegetables. You can make it lower in calorieby replacing higher calorie foods, with more fruits and vegetables - and that also will make it easier for you to reach your DASH goals. Here are some examples- To increase fruits- *Eat a medium apple instead of four shortbread cookies. You'll save 80 calories. *Eat 1/4 cup of dried apricots instead of a 2 - ounce bag of pork rinds.You'll save 230 calories To increase vegetables- *Have a hamburger that's 3 ounces of meat instead of 6 ounces. Add 1/2 cup serving of carrots and 1/2 cup serving of spinach. You'll save more than 200 calories. *Instead of 5 ounces of chicken, have a stir-bone with 2 ounces of chicken and 1 1/2 cups of raw vegetables. Use a small amount of vegetable oil. You'll save 50 calories. To increase lowfat or fat free dairy products- *Have a 1/2 cup serving of lowfat frozen yogurt instead of a 1 1/2 -ounce milk chocolate bar. You'll save about 110 calories. And don't forget these calorie-saving- tips- * Use lowfat of fat free condiments. * Use half as much vegetable oil, soft or liquid margarine, or salad dressing, or choose fat free versions. * Eat smaller portions-cut back gradually. * Choose lowfat or fat free dairy products to reduce total fat intake. * Check the food labels to compare fat content in packaged foods- items marked lowfat or fat free are not always lower in calories than their regular versions. * Limit foods with lots of added sugar, such as pies, flavored yogurts, candy bars, ice cream, sherbet, regular soft drinks, and fruit drinks. * Eat fruits canned in their own juice. * Add fruit to plain yogurt. * Snack on fruit, vegetable sticks, unbuttered and unsalted popcorn, or bread sticks. * Drink water or club soda. Make a Dash for DASH Thirty minutes of moderate-intensity physical activity each day can help. *If your blood pressure is moderately elevated, 30 minutes of brisk walking on most days a week maybe enough to keep you off medication. *If you take medication for high blood pressure, 30 minutes of moderate physical activity can make your medication work more effectively and make you feel better. *If you don't have high blood pressure, being physically active can help keep it that way. If you have normal blood pressure,but are not active, your chances of developing high blood pressure increase, especially as you get older or if you become overweight or obese or develop diabetes. You should be aware that the DASH eating plan has more daily servings of fruits, vegetables, and whole grain foods than you may be used to eating. Because the plan is high in fiber, it can cause bloating and diarrhea in some persons. To avoid these problems, gradually increase your intake of fruit,vegetables, and whole grain foods. Getting started: Your physical activity program can be as simple as a 15-minute walk around the block each morning and evening. Gradually build up your program and set new goals to stay motivated. The important thing is to find something you enjoy, and do it safely. And remember trying too hard at first can lead to injury and cause you to give up. If you have a chronic health problem or a family history of heart disease at an early age, be sure to talk with your doctor before launching a new physical activity program. 1-Set a schedule and try to keep it. 2-Get a friend or family member to join you. Motivate each other to keep it up. 6-Dahti-plntt. Alternate between different activities so you don't strain one part of your body dayafter day. 4-Set goals. 5-Reward yourself. At the end of each month that you stay on your exercise program, reward yourselfwith something new new clothes, a compact disc, a new book something that will help keep you committed. But don't use food as a reward. Tips To Reduce Salt and Sodium * Choose low- or reduced-sodium, or [id number] versions of foods and condiments when available. * Choose fresh, frozen, or canned (low-sodium or nx-ftrm-[id number]) vegetables. * Use fresh poultry, fish, and lean meat, rather than canned, smoked, or processed types. * Choose gwznt-as-xha breakfast cereals that are lower in sodium. * Limit cured foods (such as sorenson and ham); foods packed in brine (such as pickles, pickled vegetables, olives, and sauerkraut); and condiments (such as mustard, horseradish, ketchup, and barbecue sauce). Limit even lower sodium versions of soy sauce and teriyaki sauce. Treat these condiments sparingly as you do table salt. * Cook rice, pasta, and hot cereals without salt. Cut back on instant or flavored rice, pasta, and cereal mixes, which usually have added salt. * Choose convenience foods that are lower in sodium. Cut back on frozen dinners, mixed dishes such as pizza, packaged mixes, canned soups or broths, and salad dressings these often have a lot of sodium. * Rinse canned foods, such as tuna and canned beans, to remove some of the sodium. * Use spices instead of salt. In cooking and at the table, flavor foods with herbs, spices, lemon, bill moore's slough, vinegar, or salt-free seasoning blends. Start by cutting salt in half. Reducing Salt and Sodium When Eating Out * Ask how foods are prepared. Ask that they be prepared without added salt, MSG, or salt-containingingredients. Most restaurants are willing to accommodate requests. * Know the terms that indicate high sodium content: pickled, cured, smoked, soy sauce, broth. * Move the salt shaker away. * Limit condiments, such as mustard, ketchup, pickles, and sauces with salt- containing ingredients. * Choose fruit or vegetables, instead of salty snack foods. Compare Nutrition Facts Labels on Foods * Read the Nutrition Facts labels on foods to compare the amount of sodium in products. * Look for the sodium content in milligrams and the Percent Daily Value. Aim for foods that are less than 5 percent of the Daily Value of sodium. Foods with 20 percent or more * Daily Value of sodium are considered high. You can also check out the amounts of the other DASH goal nutrients. Food labels can help you choose items lower in sodium, saturated fat, trans fat, cholesterol, and calories and higher in potassium and calcium. Look for the following label information on cans, boxes, bottles, bags, and other packaging: It's easy to adopt the DASH eating plan. Here are some ways to get started: Change gradually * If you now eat one or two vegetables a day, add a serving at lunch and another at dinner. * If you don't eat fruit now or have juice only at breakfast, add a serving to your meals or have it as a snack. * Gradually increase your use of fat-free and low-fat milk and milk products to three servings a day. For example, drink milk with lunch or dinner, instead of soda, sugar sweetened tea, or alcohol. Choose fat-free (skim) or low-fat (1 percent) milk and milk products to reduce your intake of saturated fat, total fat, cholesterol, and calories and to increase your calcium. * Read the Nutrition Facts label on margarines and salad dressings to choose those lowest in saturated fat and trans fat. Treat meats as one part of the whole meal, instead of the focus * Limit lean meats to 6 ounces a day that's all that's needed. Have only 3 ounces at a meal, which is about the size of a deck of cards. * If you now eat large portions of meats, cut them back gradually by a half or a third at each meal. * Include two or more vegetarian-style (meatless) meals each week. * Increase servings of vegetables, brown rice, whole wheat pasta, and cooked dry beans in meals. Try casseroles, whole wheat pasta, and stir-bone dishes, which have less meat and more vegetables, grains, and dry beans. Use fruits or other foods low in saturated fat, trans fat, cholesterol, sodium, sugar, and caloriesas desserts and snacks * Fruits and other lower fat foods offer great taste and variety. Use fruits canned in their own juice or packed in water. Fresh fruits require little or no preparation. Dried fruits are a good choice to carry with you or to have ready in the car. * Try these snacks ideas: unsalted rice cakes; nuts mixed with raisins; linda crackers; fat-free and low-fat yogurt and frozen yogurt; popcorn with no salt or butter added; raw vegetables. Try these other tips * Choose whole grain foods for most grain servings to get added nutrients, such as minerals and fiber. For example, choose whole wheat bread or whole grain cereals. * If you have trouble digesting milk and milk products, try taking lactase enzyme pills (available at drugstores and groceries) with the milk products. Or, buy lactose-free milk, which has the lactase enzyme already added to it. * If you are allergic to nuts, use seeds or legumes (cooked dried beans or peas). Use fresh, frozen, or low-sodium canned vegetables and fruits. The DASH plan is a new way of eating for a lifetime. If you slip from the eating plan for a few days, don't let it keep you from reaching your health goals. Get back on track. Here's how: Ask yourself why you got off-track. Was it at a alliance party? Were you feeling stress at home or work? Find out what triggered your sidetrack and start again with the DASH plan. Don't worry about a slip. Everyone slips especially when learning something new. Remember that changing your lifestyle is a long-term process. See if you tried to do too much at once. Often, those starting a new lifestyle try to change too much at once. Instead, change one or two things at a time. Slowly but surely is the best way to succeed. Break the process down into small steps. This not only keeps you from trying to do too much at once, but also keeps the changes simpler. Break complex goals into smaller, simpler steps, each of which is attainable. Write it down. Keep track of what you eat and what you're doing. This can help you find the problem. Keep track for several days. You may find, for instance, that you eat high-fat foods while watching television. If so, you could start keeping a substitute snack on hand to eat instead of the high-fat foods. This record also helps you be sure you're getting enough of each food group and physical activity each day. Celebrate success. Treat yourself to a nonfood treat for your accomplishments. [place] [employer] National Institutes of Health National Heart, Lung, and Blood [place] NIH Publication No. 06-4082 Originally Printed 1997 Revised December 2005 [facility] of Present illness Narrative* Patria Armando PA-C - 01/12/2022 11:00 AM EDT SUBJECTIVE: Poly Armando is a 26 year old female who presents for 4 week follow up on blood pressure. Patient has been monitoring her BP, it has been in the 140/90 range regularly. She did have spikes on 12/11/21, it was 152/126 in the morning and then 149/106 in the even ing. She can tell when it spikes because she gets very hot and flushed. She denies other symptoms of hypertension including chest pain, palpitations, shortness of breath, peripheral edema, dizziness, and vision changes. She is also experiencing sweating and headaches more frequently. Initially when she started amitriptyline her headaches improved, but recently her headaches have started to occur more frequently. Sheis having headaches 3-4 days a week. She has been on the amitriptyline for a while. Denies light orsound sensitivity, nausea, and an aura with the headaches. She does see Dr. Edouard neurology. She does not follow a low sodium diet or exercise regularly. Current Outpatient Medications Medication Sig lamoTRIgine (LAMICTAL) 200 mg tablet Take 1 tablet by mouth twice daily. amitriptyline (ELAVIL) 50 mg tablet Take 1 tablet by mouth daily at bedtime. sertraline (ZOLOFT) 100 mg tablet Take 1 tablet by mouth once daily. amLODIPine (NORVASC) 10 mg tablet Take 1 tablet by mouth once daily. No current facility-administered medications for this visit. ACTIVE PROBLEM LIST Obesity, Class III, BMI >= 40 Shortening, Leg, Congenital, Left Scoliosis Concern Seizure Disorder (Hcc) Migraine Without Aura, Not Intractable, With Status Migrainosus Generalized Seizures (Hcc) Tension Headaches Headache, Rebound Robert (Generalized Anxiety Disorder) Hypertension, Essential Hidradenitis Suppurativa Acne Vulgaris Lymph Node Enlargement Patient has no known allergies. FAMILY HISTORY Problem Relation Age of Onset No Known Problems Mother No Known Problems Father PAST SURGICAL HISTORY Procedure Laterality Date ANESTH, SECTION 2012,2014,2016 Social History Tobacco Use Smoking status: Never Smoker Smokeless tobacco: Never Used Vaping Use Vaping Use: Never used Substance Use Topics Alcohol use: Not Currently Drug use: Never REVIEW OF SYSTEMS Review of Systems Constitutional: Negative for chills, fatigue and fever. Respiratory: Negative for cough, shortness of breath and wheezing. Cardiovascular: Negative for chest pain, palpitations and leg swelling. Gastrointestinal: Negative for abdominal pain, constipation, diarrhea and nausea. Musculoskeletal: Negative for back pain, joint swelling, myalgias and neck pain. Skin: Negative for rash. Neurological: Positive for headaches. Negative for dizziness, weakness and numbness. Psychiatric/Behavioral: Negative for dysphoric mood. The patient is not nervous/anxious. OBJECTIVE BP 143/90 (BP Site: Right Arm, BP Position: Sitting, BP Cuff Size: Large Adult) Pulse 102 Resp 18 Ht 157.5 cm (5' 2) Wt 112.9 kg (249 lb) LMP 10/29/2021 SpO2 98% BMI 45.54 kg/m Physical Exam Vitals and nursing note reviewed. Constitutional: Appearance: Normal appearance. She is not ill-appearing. Cardiovascular: Rate and Rhythm: Normal rate and regular rhythm. Heart sounds: Normal heart sounds. Pulmonary: Effort: Pulmonary effort is normal. Breath sounds: Normal breath sounds. Musculoskeletal: General: Normal range of motion. Cervical back: Normal range of motion. Right lower leg: No edema. Left lower leg: No edema. Neurological: General: No focal deficit present. Mental Status: She is alert and oriented to person, place, and time. Psychiatric: Mood and Affect: Mood normal. ASSESSMENT/PLAN: 1. Hypertension, essential - ICD9: 401.9, ICD10: I10 (primary diagnosis) - suboptimal control - Continue current medication(s) - Add lisinopril (Zestril/Prinivil) 5 mg daily - Encouraged dietary sodium restriction/DASH diet - Recommended regular aerobic exercise. - Recommend home blood pressure monitoring, to bring results in on next visit - Reviewed risks of HTN and principles of treatment - Goal of BP <130/80 - LISINOPRIL 5 MG TABLET 2. Tension headaches - ICD9: 307.81, ICD10: G44.209 - Possibly increasing in frequency due to blood pressure. If headaches do not improve, advised follow-up with Dr. Edouard and consider increasing amitriptyline as she may also be becoming tolerant to this medication. Medications were reviewed with patient, which included but was not limited to the reason for use, expected results, and possible side effects. Patient expressed an understanding of instructions from today's office visit. All questions were answered at this time and they agree with the treatment plan. Patient to call with any additional questions, concerns, or if symptoms worsen or persist. Patria Armando PA-C documented in [facility] encounterThe [facility] History of Past illness Narrative* Problem Noted Date Resolved Date Elevated blood pressure read ing without diagnosis of hypertension 01/04/2021 12/05/2021 documented as of this encounter (statuses as of 01/05/2022) [facility] of Past illness Narrative* Problem Noted Date Resolved Date Elevated blood pressure read ing without diagnosis of hypertension 01/04/2021 12/05/2021 documented as of this encounter (statuses as of 01/12/2022) [address]13-2021 History of Past illness Narrative* Problem Noted Date Resolved Date Elevated blood pressure read ing without diagnosis of hypertension 01/04/2021 12/05/2021 documented as of this encounter (statuses as of 01/18/2022) [address]13-2021 History of Past illness Narrative* Problem Noted Date Resolved Date Elevated blood pressure read ing without diagnosis of hypertension 01/04/2021 12/05/2021 documented as of this encounter (statuses as of 01/18/2022) [address]13-2021 History of Past illness Narrative* Problem Noted Date Resolved Date Elevated blood pressure read ing without diagnosis of hypertension 01/04/2021 12/05/2021 documented as of this encounter (statuses as of 01/20/2022) [address]13-2021 History of Past illness Narrative* Problem Noted Date Resolved Date Elevated blood pressure read ing without diagnosis of hypertension 01/04/2021 12/05/2021 documented as of this encounter (statuses as of 01/20/2022) [address]13-2021 History of Past illness Narrative* Problem Noted Date Resolved Date Elevated blood pressure read ing without diagnosis of hypertension 01/04/2021 12/05/2021 documented as of this encounter (statuses as of 01/24/2022) [address]13-2021 History of Past illness Narrative* Problem Noted Date Resolved Date Elevated blood pressure read ing without diagnosis of hypertension 01/04/2021 12/05/2021 documented as of this encounter (statuses as of 02/11/2022) [address]13-2021 History of Past illness Narrative* Problem Noted Date Resolved Date Elevated blood pressure read ing without diagnosis of hypertension 01/04/2021 12/05/2021 documented as of this encounter (statuses as of 02/13/2022) [address]13-2021 History of Past illness Narrative* Problem Noted Date Resolved Date Elevated blood pressure read ing without diagnosis of hypertension 01/04/2021 12/05/2021 documented as of this encounter (statuses as of 03/06/2022) [address]13-2021 History of Past illness Narrative* Problem Noted Date Resolved Date Elevated blood pressure read ing without diagnosis of hypertension 01/04/2021 12/05/2021 documented as of this encounter (statuses as of 03/20/2022) [address]13-2021 History of Past illness Narrative* Problem Noted Date Resolved Date Elevated blood pressure read ing without diagnosis of hypertension 01/04/2021 12/05/2021 documented as of this encounter (statuses as of 05/17/2022) [address]13-2021 History of Past illness Narrative* Problem Noted Date Resolved Date Elevated blood pressure read ing without diagnosis of hypertension 01/04/2021 12/05/2021 documented as of this encounter (statuses as of 05/17/2022) [address]13-2021 History of Past illness Narrative* Problem Noted Date Resolved Date Elevated blood pressure read ing without diagnosis of hypertension 01/04/2021 12/05/2021 documented as of this encounter (statuses as of 05/25/2022) [address]13-2021 History of Past illness Narrative* Problem Noted Date Resolved Date Elevated blood pressure read ing without diagnosis of hypertension 01/04/2021 12/05/2021 documented as of this encounter (statuses as of 06/12/2022) [facility]* Diagnosis Hypertension, essential- Primary Unspecified essential hypertension Tension headaches [facility] Diagnosis Breathing difficult- Primary Other dyspnea and respiratory abnormality Shakiness Abnormal involuntary movements Racing heart beat Tachycardia, unspecified [facility] this [facility] Diagnosis Hypertension, essential- Primary Unspecified essential hypertension Elevated heart rate with elevated blood pressure and diagnosis of hypertension [facility] Diagnosis Contact dermatitis due to adhesives, unspecified contact dermatitis type- Primary [facility] Diagnosis Hypertension, essential Unspecified essential hypertension [facility] Diagnosis ROBERT (generalized anxiety disorder) Generalized anxiety disorder [facility]* Diagnosis Hypertension, essential Unspecified essential hypertension [facility] Diagnosis Hypertension, essential Unspecified essential hypertension [facility] Diagnosis ROBERT (generalized anxiety disorder)- Primary Generalized anxiety disorder Elevated heart rate with elevated blood pressure and diagnosis of hypertension Seizure disorder (HCC) Unspecified epilepsy without mention of intractable epilepsy [facility]* Diagnosis Hypertension, essential Unspecified essential hypertension documented in this encounter [facility] note* Diagnosis Moderate episode of recurrent major depressive disorder (HCC)- Primary ROBERT (generalized anxiety disorder) Generalized anxiety disorder Other fatigue INDIGO (obstructive sleep apnea) Obstructive sleep apnea (adult) (pediatric) Seizure disorder (HCC) Unspecified epilepsy without mention of intractable epilepsy Encounter for therapeutic drug monitoring Encounter for screening for diabetes mellitus Screening for diabetes mellitus documented [facility]* Diagnosis Other fatigue- Primary Vitamin D deficiency Unspecified vitamin D deficiency documented [facility]* Diagnosis ROBERT (generalized anxiety disorder)- Primary Generalized anxiety disorder Moderate episode of recurrent major depressive disorder (HCC) Snoring Other dyspnea and respiratory abnormality documented in this encounter [facility] note* Diagnosis Hypertension, essential Unspecified essential hypertension [facility]* Diagnosis Excessive daytime sleepiness- Primary Other fatigue Hypertension, essential Unspecified essential hypertension ROBERT (generalized anxiety disorder) Generalized anxiety disorder Moderate episode of recurrent major depressive disorder (HCC) Multiple allergies Other allergy, other than to medicinal agents documented [facility]* Diagnosis Excessive daytime sleepiness- Primary Narcolepsy without cataplexy documented in this encounter [facility] note* Diagnosis Pelvic pain- Primary Uterine leiomyoma, unspecified location [facility] this encounter [facility]* Diagnosis Family history of gene mutation documented in this encounter [facility]* Diagnosis Pelvic pain- Primary Uterine leiomyoma, unspecified location Abnormal uterine bleeding Unspecified disorder of menstruation and other abnormal bleeding from female genital tract History of kidney stones Personal history of urinary calculi documented [facility]* Diagnosis Pelvic pain History of kidney stones Personal history of urinary calculi documented [facility]* Diagnosis Hypertension, essential Unspecified essential hypertension documented in this encounter [facility] note* Diagnosis Left nephrolithiasis- Primary Microscopic hematuria Nocturia documented [facility] this encounter [facility]* Diagnosis Microscopic hematuria- Primary [facility]* Diagnosis IFG (impaired fasting glucose)- Primary Impaired fasting glucose Nonalcoholic fatty liver disease without nonalcoholic steatohepatitis (FREY) Hypertension, essential Unspecified essential hypertension Palpitation Palpitations Dizzy Dizziness and giddiness Class 3 severe obesity with serious comorbidity and body mass index (BMI) of 40.0 to 44.9 in adult, unspecified obesity type (HCC) documented in this encounter [facility] note* Diagnosis ROBERT (generalized anxiety disorder) Generalized anxiety disorder Moderate episode of recurrent major depressive disorder (HCC) Hypertension, essential Unspecified essential hypertension documented in this encounter [facility] note* Diagnosis ROBERT (generalized anxiety disorder)- Primary Generalized anxiety disorder Moderate episode of recurrent major depressive disorder (HCC) Poison ciera dermatitis Contact dermatitis and other eczema due to plants (except food) Hypertension, essential Unspecified essential hypertension IFG (impaired fasting glucose) Impaired fasting glucose Nonalcoholic fatty liver disease without nonalcoholic steatohepatitis (FREY) Class 3 severe obesity with serious comorbidity and body mass index (BMI) of 40.0 to 44.9 in adult, unspecified obesity type (HCC) documented in this encounter [facility] note* Diagnosis ROBERT (generalized anxiety disorder)- Primary Generalized anxiety disorder Moderate episode of recurrent major depressive disorder (HCC) Hypertension, essential Unspecified essential hypertension IFG (impaired fasting glucose) Impaired fasting glucose Nonalcoholic fatty liver disease without nonalcoholic steatohepatitis (FREY) Class 3 severe obesity with serious comorbidity and body mass index (BMI) of 40.0 to 44.9 in adult, unspecified obesity type (HCC) documented in this encounter [facility] note* Diagnosis Hypertension, essential Unspecified essential hypertension ROBERT (generalized anxiety disorder) Generalized anxiety disorder IFG (impaired fasting glucose) Impaired fasting glucose documented in this encounter [facility] note* Diagnosis Excessive daytime sleepiness- Primary Dizzy Dizziness and giddiness Palpitation Palpitations Other fatigue Seizure disorder (HCC) Unspecified epilepsy without mention of intractable epilepsy Migraine without aura, not intractable, with status migrainosus IFG (impaired fasting glucose) Impaired fasting glucose Class 3 severe obesity with serious comorbidity and body mass index (BMI) of 40.0 to 44.9 in adult, unspecified obesity type (HCC) documented in this encounter [facility] note* Diagnosis Right upper quadrant abdominal pain- Primary Abdominal pain, right upper quadrant documented in this encounter [facility] note* Diagnosis Right upper quadrant abdominal pain Abdominal pain, right upper quadrant [facility]* Diagnosis Right upper quadrant abdominal pain- Primary Abdominal pain, right upper quadrant [facility]* Diagnosis Dizzy Dizziness and giddiness Other fatigue Seizure disorder (HCC) Unspecified epilepsy without mention of intractable epilepsy Migraine without aura, not intractable, with status migrainosus documented in this encounter [facility] note* Diagnosis Right upper quadrant abdominal pain Abdominal pain, right upper quadrant [facility]* Diagnosis ROBERT (generalized anxiety disorder) Generalized anxiety disorder Moderate episode of recurrent major depressive disorder (HCC) Hypertension, essential Unspecified essential hypertension IFG (impaired fasting glucose) Impaired fasting glucose documented in this encounter [facility] note* Diagnosis Nonalcoholic fatty liver disease without nonalcoholic steatohepatitis (FREY)- Primary Right upper quadrant abdominal pain Abdominal pain, right upper quadrant Indigestion Dyspepsia and other specified disorders of function of stomach Bloating Flatulence, eructation, and gas pain Intermittent diarrhea documented in this encounter [facility]* Diagnosis RUQ abdominal pain- Primary Abdominal pain, right upper quadrant Right upper quadrant abdominal pain Abdominal pain, right upper quadrant Indigestion Dyspepsia and other specified disorders of function of stomach Bloating Flatulence, eructation, and gas pain documented in this encounter [facility] note* Diagnosis Hypertension, essential- Primary Unspecified essential hypertension ROBERT (generalized anxiety disorder) Generalized anxiety disorder Chronic gastritis without bleeding, unspecified gastritis type Nonalcoholic fatty liver disease without nonalcoholic steatohepatitis (FREY) Obesity, Class III, BMI >= 40 Morbid obesity IFG (impaired fasting glucose) Impaired fasting glucose documented in this encounter [facility] note* Diagnosis Class 3 severe obesity with serious comorbidity and body mass index (BMI) of 40.0 to 44.9 in adult, unspecified obesity type (HCC)- Primary NAFLD (nonalcoholic fatty liver disease) Other chronic nonalcoholic liver disease Pre-diabetes Other abnormal glucose Seizure (HCC) Other convulsions Hypertension, unspecified type Tachycardia Tachycardia, unspecified documented in this encounter [facility] note* Diagnosis Class 3 severe obesity with serious comorbidity and body mass index (BMI) of 40.0 to 44.9 in adult, unspecified obesity type (HCC)- Primary documented in this encounter [facility] note* Diagnosis Class 3 severe obesity with serious comorbidity and body mass index (BMI) of 40.0 to 44.9 in adult, unspecified obesity type (HCC)- Primary NAFLD (nonalcoholic fatty liver disease) Other chronic nonalcoholic liver disease Gastroesophageal reflux disease, unspecified whether esophagitis present documented in this encounter [facility]* Diagnosis Vitamin D deficiency- Primary Unspecified vitamin D deficiency documented in this encounter [facility]* Diagnosis Eating disorder, unspecified type- Primary Anxiety Anxiety state, unspecified MDD (major depressive disorder), recurrent episode, mild Major depressive disorder, recurrent episode, mild documented in this encounter [facility] note* Diagnosis Excessive daytime sleepiness- Primary Sleep-disordered breathing Other sleep disturbances Obesity, Class III, BMI >= 40 Morbid obesity Pre-op evaluation Preoperative examination, unspecified documented in this encounter [facility] note* Diagnosis Dietary counseling and surveillance- Primary Dietary surveillance and counseling documented in this encounter [facility] note* Diagnosis Excessive daytime sleepiness- Primary Sleep-disordered breathing Other sleep disturbances Obesity, Class III, BMI >= 40 Morbid obesity IFG (impaired fasting glucose) Impaired fasting glucose Moderate episode of recurrent major depressive disorder (HCC) documented in this encounter [facility] note* Diagnosis Hypertension, essential Unspecified essential hypertension IFG (impaired fasting glucose) Impaired fasting glucose documented in this encounter [facility]* Diagnosis Dietary counseling and surveillance- Primary Dietary surveillance and counseling documented in this encounter [facility] note* Diagnosis Class 3 severe obesity with serious comorbidity and body mass index (BMI) of 40.0 to 44.9 in adult, unspecified obesity type (HCC)- Primary Vitamin D deficiency Unspecified vitamin D deficiency documented in this encounter [facility] note* Diagnosis Hives- Primary Urticaria, unspecified Tick bite, unspecified site, initial encounter documented in this encounter [facility]* Diagnosis Eating disorder, unspecified type- Primary Anxiety Anxiety state, unspecified MDD (major depressive disorder), recurrent episode, mild Major depressive disorder, recurrent episode, mild documented in this encounter [facility]* Diagnosis Generalized anxiety disorder- Primary Major depressive disorder, recurrent episode, moderate (HCC) Major depressive disorder, recurrent episode, moderate documented in this encounter [facility] note* Diagnosis Class 3 severe obesity with serious comorbidity and body mass index (BMI) of 40.0 to 44.9 in adult, unspecified obesity type (HCC)- Primary NAFLD (nonalcoholic fatty liver disease) Other chronic nonalcoholic liver disease Hiatal hernia Diaphragmatic hernia without mention of obstruction or gangrene Pre-diabetes Other abnormal glucose Hypertension, unspecified type Gastroesophageal reflux disease without esophagitis Esophageal reflux Anxiety and depression Dysthymic disorder documented in this encounter [facility] note* Diagnosis Class 3 severe obesity with serious comorbidity and body mass index (BMI) of 40.0 to 44.9 in adult, unspecified obesity type (HCC)- Primary NAFLD (nonalcoholic fatty liver disease) Other chronic nonalcoholic liver disease Hiatal hernia Diaphragmatic hernia without mention of obstruction or gangrene Pre-diabetes Other abnormal glucose Hypertension, unspecified type Gastroesophageal reflux disease without esophagitis Esophageal reflux Anxiety and depression Dysthymic disorder Class 3 severe obesity with serious comorbidity and body mass index (BMI) of 40.0 to 44.9 in adult, unspecified obesity type (HCC) NAFLD (nonalcoholic fatty liver disease) Other chronic nonalcoholic liver disease Hiatal hernia Diaphragmatic hernia without mention of obstruction or gangrene Pre-diabetes Other abnormal glucose Hypertension, unspecified type Gastroesophageal reflux disease without esophagitis Esophageal reflux Anxiety and depression Dysthymic disorder documented in this encounter [facility] note* Diagnosis Dietary counseling and surveillance- Primary Dietary surveillance and counseling Class 3 severe obesity with serious comorbidity and body mass index (BMI) of 40.0 to 44.9 in adult, unspecified obesity type (HCC) Class 3 severe obesity with serious comorbidity and body mass index (BMI) of 40.0 to 44.9 in adult, unspecified obesity type (HCC) NAFLD (nonalcoholic fatty liver disease) Other chronic nonalcoholic liver disease Hiatal hernia Diaphragmatic hernia without mention of obstruction or gangrene Pre-diabetes Other abnormal glucose Hypertension, unspecified type Gastroesophageal reflux disease without esophagitis Esophageal reflux Anxiety and depression Dysthymic disorder documented in this encounter [facility] note* Diagnosis Class 3 severe obesity with serious comorbidity and body mass index (BMI) of 40.0 to 44.9 in adult, unspecified obesity type (HCC)- Primary Class 3 severe obesity with serious comorbidity and body mass index (BMI) of 40.0 to 44.9 in adult, unspecified obesity type (HCC) NAFLD (nonalcoholic fatty liver disease) Other chronic nonalcoholic liver disease Hiatal hernia Diaphragmatic hernia without mention of obstruction or gangrene Pre-diabetes Other abnormal glucose Hypertension, unspecified type Gastroesophageal reflux disease without esophagitis Esophageal reflux Anxiety and depression Dysthymic disorder [facility] Diagnosis Class 3 severe obesity with serious comorbidity and body mass index (BMI) of 40.0 to 44.9 in adult, unspecified obesity type (HCC)- Primary Class 3 severe obesity with serious comorbidity and body mass index (BMI) of 40.0 to 44.9 in adult, unspecified obesity type (HCC) NAFLD (nonalcoholic fatty liver disease) Other chronic nonalcoholic liver disease Hiatal hernia Diaphragmatic hernia without mention of obstruction or gangrene Pre-diabetes Other abnormal glucose Hypertension, unspecified type Gastroesophageal reflux disease without esophagitis Esophageal reflux Anxiety and depression Dysthymic disorder documented in this encounter [facility] for referral (narrative)* Diagnostic Procedure Only (Routine) - Pending Review Specialty Diagnoses / Procedures Referred By Danyell lopes Referred To Contact [facility] Diagnoses Other fatigue INDIGO (obstructive sleep apnea) Procedures HOME SLEEP APNEA TEST (HSAT) SLEEP STD AIRFLOW HRT RATE&O2 SAT EFFORT UNATT Wilson Wharton APRN.CNP [address] [place] [address] [place] [address] Referral ID Status Reason Start Date Expiration Date Visits Requested Visits Authorized [id number] Pending Review Auto-Generat ed Referral 10/17/2022 10/17/2023 1 1 [facility] for referral (narrative)* Diagnostic Procedure Only (Routine) - Closed Specialty Diagnoses / Procedures Referred By Danyell lopes Referred To Contact US IMAGING Diagnoses Pelvic pain History of kidney stones Procedures US KIDNEY/BLADDER US RETROPERITONEAL REAL TIME W/IMAGE COMPLETE Milind Bolaños APRN.CNP [address] [place] [address] [facility] [place] [address] Referral ID Status Reason Start Date Expiration Date V isits Requested Visits Authorized [id number] Closed Auto-Generate d Referral 11/05/2023 12/04/2024 1 1 [facility] for referral (narrative)* Diagnostic Procedure Only (Routine) - Closed Specialty Diagnoses / Procedures Referred By Contac t Referred To Contact US IMAGING Diagnoses Pelvic pain History of kidney stones Procedures US KIDNEY/BLADDER US RETROPERITONEAL REAL TIME W/IMAGE COMPLETE Milind Bolaños APRN.BOOM MASTER [address] [place] [phone] [place] [address] Referral ID Status Reason Start Date Expiration Date V isits Requested Visits Authorized [id number] Closed Auto-Generate d Referral 11/05/2023 12/04/2024 1 1 [facility] for referral (narrative)* Diagnostic Procedure Only (Urgent) - Authorized Specialty Diagnoses / Procedures Referred By Contac t Referred To Contact US IMAGING Diagnoses Right upper quadrant abdominal pain Procedures US ABD RIGHT UPPER QUADRANT US ABDOMINAL REAL TIME W/IMAGE LIMITED Wilson Wharton APRN.BOOM MASTER [facility] [place] [address] [place] [address] Referral ID Status Reason Start Date Expiration Date Visits Requested Visits Authorized [id number] Authorized Auto-Generat ed Referral 08/01/2024 08/31/2025 1 1 [facility] for referral (narrative)* Diagnostic Procedure Only (Urgent) - Closed Specialty Diagnoses / Procedures Referred By Contac t Referred To Contact US IMAGING Diagnoses Right upper quadrant abdominal pain Procedures US ABD RIGHT UPPER QUADRANT US ABDOMINAL REAL TIME W/IMAGE LIMITED Wilson Wharton APRN.CNP [address] [place] [address] [place] [address] Referral ID Status Reason Start Date Expiration Date V isits Requested Visits Authorized [id number] Closed Auto-Generate d Referral 08/01/2024 08/31/2025 1 1 [facility] for referral (narrative)* Diagnostic Procedure Only (Routine) - Open Specialty Diagnoses / Procedures Referred By Contac t Referred To Contact [facility]LECULAR [facility] FUNCTIONAL IMAGING Diagnoses Right upper quadrant abdominal pain Procedures NM HEPATOBILIARY W EF AND/OR RX HEPATOBIL SYST IMAG INC GB W/PHARMA INTERVWilson Dave APRN.BOOM MASTER [address] [place], [place] [id number] [facility] [address] [place] [address] Referral ID Status Reason Start Date Expiration Date V isits Requested Visits Authorized [id number] Open Auto-Generate d Referral 08/04/2024 09/03/2025 1 1 [facility] Diagnostic Procedure Only (Routine) - Closed Specialty Diagnoses / Procedures Referred By Contac t Referred To Contact MOLECULAR & FUNCTIONAL IMAGING Diagnoses Right upper quadrant abdominal pain Procedures NM HEPATOBILIARY W EF AND/OR RX HEPATOBIL SYST IMAG INC GB W/PHARMA Wilson Eldridge APRN.BOOM MASTER [address] [place], [place] [id number] [facility] [address] [place] [address] Referral ID Status Reason Start Date Expiration Date V isits Requested Visits Authorized [id number] Closed Auto-Generate d Referral 08/05/2024 09/23/2024 1 1 [facility] for referral (narrative)* Outpatient Procedure (Routine) - Authorized Specialty Diagnoses / Procedures Referred By Contac t Referred To Contact [facility] Diagnoses Right upper quadrant abdominal pain Indigestion Bloating Procedures EGD DIAGNOSTIC EGD DIAGNOSTIC EGD DIAGNOSTIC ESOPHAGOGASTRODUODENOS COPY TRANSORAL DIAGNOSTIC Tricia Garcia PA-C [address] [place] [address] [facility] [place] [address] [place] [address] Referral ID Status Reason Start Date Expiration Date Visits Requested Visits Authorized [id number] Authorized Auto-Generat ed Referral 10/14/2024 09/23/2025 1 1 [facility] for referral (narrative)* Outpatient Procedure (Routine) - Closed Specialty Diagnoses / Procedures Referred By Contac t Referred To Contact [facility] Diagnoses Right upper quadrant abdominal pain Indigestion Bloating Procedures EGD DIAGNOSTIC EGD DIAGNOSTIC EGD DIAGNOSTIC ESOPHAGOGASTRODUODENOS COPY TRANSORAL DIAGNOSTIC Tricia Garcia PA-C [address] [place] [address] [address] Referral ID Status Reason Start Date Expiration Date V isits Requested Visits Authorized [id number] Closed Auto-Generate d Referral 10/14/2024 09/23/2025 1 1 [facility] for visit Narrative* Diagnostic Procedure Only (Urgent) - Closed Specialty Diagnoses / Procedures Referred By Contac t Referred To Contact US IMAGING Diagnoses Right upper quadrant abdominal pain Procedures US ABD RIGHT UPPER QUADRANT US ABDOMINAL REAL TIME W/IMAGE LIMITED Wilson Wharton APRN.BOOM MASTER [address] [place] [phone] [facility] Referral ID Status Reason Start Date Expiration Date V isits Requested Visits Authorized [id number] Closed Auto-Generate d Referral 08/01/2024 08/31/2025 1 1 [facility] for visit Narrative* Outpatient Procedure (Routine) - Closed Specialty Diagnoses / Procedures Referred By Contac t Referred To Contact [facility] Diagnoses Right upper quadrant abdominal pain Indigestion Bloating Procedures EGD DIAGNOSTIC EGD DIAGNOSTIC EGD DIAGNOSTIC ESOPHAGOGASTRODUODENOS COPY TRANSORAL DIAGNOSTIC Tricia Garcia PA-C [address] [place] [address] [facility] [place] [address] [place] [address] Referral ID Status Reason Start Date Expiration Date V isits Requested Visits Authorized [id number] Closed Auto-Generate d Referral 10/14/2024 09/23/2025 1 1 [facility] Summary Purpose Family History No Family History Records FoundNo Family History Records FoundNo Family History Records FoundNo Family History Records FoundNo Family History Records FoundNo Family History Records FoundNo Family History Records Found Advance Directives No Advanced Directives Records FoundNo Advanced Directives Records FoundNo Advanced Directives Records FoundNo Advanced Directives Records FoundNo Advanced Directives Records FoundNo Advanced Directives Records FoundNo Advanced Directives Records Found Reason for Referral Specialty Diagnoses / Procedures Referred By Contac t Referred To Contact Ent - Otolaryngology Diagnoses Snoring Procedures CONSULT TO ENT OFFICE/OUTPATIENT [facility] 60-74 MINUTES Wilson Wharton APRN.BOOM MASTER [address] [place] [address] Referral ID Status Reason Start Date Expiration Date Visits Requested Visits Authorized [id number] Authorized PCP Requested Referral 11/20/2022 11/20/2023 1 1 Specialty Diagnoses / Procedures Referred By Contac t Referred To Contact Diagnoses Other fatigue Excessive daytime sleepiness Wilson Wharton APRN.BOOM MASTER [address] [place] [address] Referral ID Status Reason Start Date Expiration Date V isits Requested Visits Authorized [id number] Pending Review 1 1 Specialty Diagnoses / Procedures Referred By Contac t Referred To Contact Diagnoses Multiple allergies Procedures CONSULT TO ALLERGY/IMMUNOLOGY Wilson Wharton APRN.BOOM MASTER [facility] [place] [address] Aravind Salmon [address] [place] [address] Referral ID Status Reason Start Date Expiration Date Visits Requested Visits Authorized [id number] Ref Not Required PCP Requested Referral 01/22/2023 04/22/2023 3 3 Specialty Diagnoses / Procedures Referred By Contac t Referred To Contact Diagnoses Excessive daytime sleepiness Narcolepsy without cataplexy Wilson Wharton APRN.BOOM MASTER [facility] [place] [address] Referral ID Status Reason Start Date Expiration Date V isits Requested Visits Authorized [id number] Authorized 12/24/2022 01/23/2024 1 1 Specialty Diagnoses / Procedures Referred By Contac t Referred To Contact Gynecology Diagnoses Pelvic pain Uterine leiomyoma, unspecified location Procedures CONSULT TO GYNECOLOGY OFFICE/OUTPATIENT [facility] MDM 60 MINUTES Wilson Wharton APRN.BOOM MASTER [address] [place] [address] Referral ID Status Reason Start Date Expiration Date Visits Requested Visits Authorized [id number] Authorized PCP Requested Referral Auto-Generate d Referral 10/30/2023 10/29/2024 1 1 Specialty Diagnoses / Procedures Referred By Contac t Referred To Contact Diagnoses IFG (impaired fasting glucose) Class 3 severe obesity with serious comorbidity and body mass index (BMI) of 40.0 to 44.9 in adult, unspecified obesity type (HCC) Wilson Wharton APRN.BOOM MASTER [address] [place] [address] Referral ID Status Reason Start Date Expiration Date Visits Re quested Visits Authorized [id number] Closed 1 1 Specialty Diagnoses / Procedures Referred By Contac t Referred To Contact Diagnoses Class 3 severe obesity with serious comorbidity and body mass index (BMI) of 40.0 to 44.9 in adult, unspecified obesity type (HCC) Wilson Wharton APRN.BOOM MASTER [address] [place] [address] Referral ID Status Reason Start Date Expiration Date Visits Re quested Visits Authorized [id number] Closed 1 1 Specialty Diagnoses / Procedures Referred By Contac t Referred To Contact Diagnoses Dizzy Palpitation Other fatigue Seizure disorder (HCC) Excessive daytime sleepiness Procedures CONSULT TO SLEEP MEDICINE - ADULT OFFICE/OUTPATIENT [facility] MDM 60 MINUTES Wilson Wharton APRN.BOOM MASTER [address] [place] [address] Referral ID Status Reason Start Date Expiration Date Visits Requested Visits Authorized [id number] Authorized PCP Requested Referral 07/11/2025 1 1 Specialty Diagnoses / Procedures Referred By Contac t Referred To Contact MR IMAGING Diagnoses Dizzy Other fatigue Seizure disorder (HCC) Migraine without aura, not intractable, with status migrainosus Procedures MRI BRAIN WO/W IVCON MRI BRAIN BRAIN STEM W/O W/CONTRAST MATERIAL Wilson Wharton APRN.BOOM MASTER [address] [place] [address] [place] [address] Referral ID Status Reason Start Date Expiration Date Visits Requested Visits Authorized [id number] Pending Review Auto-Generat ed Referral 4 08/10/2025 1 1 Referral ID Status Reason Start Date Expiration Date V isits Requested Visits Authorized [id number] Closed Auto-Generate d Referral 07/29/2024 09/23/2024 1 1 Additional Source Comments Source Comments (unrecognize d section and content) In the event this informatio n is protected by the Federal Confidentiality of Alcohol and Drug Abuse Patient Records regulations: The Federal rules restrict any use of the information to criminally investigate or prosecute any alcohol or drug abuse patient.[facility] the event this information is protected by the Federal Confidentiality of Alcohol and Drug Abuse Patient Records regulations: The Federal rules restrict any use of the information to criminally investigate or prosecute any alcohol or drug abuse patient.[facility] the event this information is protected by the Federal Confidentiality of Alcohol and Drug Abuse Patient Records regulations: The Federal rules restrict any use of the information to criminally investigate or prosecute any alcohol or drug abuse patient.[facility] the event this information is protected by the Federal Confidentiality of Alcohol and Drug Abuse Patient Records regulations: The Federal rules restrict any use of the information to criminally investigate or prosecute any alcohol or drug abuse patient.[facility] the event this information is protected by the Federal Confidentiality of Alcohol and Drug Abuse Patient Records regulations: The Federal rules restrict any use of the information to criminally investigate or prosecute any alcohol or drug abuse patient.[facility] the event this information is protected by the Federal Confidentiality of Alcohol and Drug Abuse Patient Records regulations: The Federal rules restrict any use of the information to criminally investigate or prosecute any alcohol or drug abuse patient.[facility] the event this information is protected by the Federal Confidentiality of Alcohol and Drug Abuse Patient Records regulations: The Federal rules restrict any use of the information to criminally investigate or prosecute any alcohol or drug abuse patient.[facility] the event this information is protected by the Federal Confidentiality of Alcohol and Drug Abuse Patient Records regulations: The Federal rules restrict any use of the information to criminally investigate or prosecute any alcohol or drug abuse patient.[facility] the event this information is protected by the Federal Confidentiality of Alcohol and Drug Abuse Patient Records regulations: The Federal rules restrict any use of the information to criminally investigate or prosecute any alcohol or drug abuse patient.[facility] the event this information is protected by the Federal Confidentiality of Alcohol and Drug Abuse Patient Records regulations: The Federal rules restrict any use of the information to criminally investigate or prosecute any alcohol or drug abuse patient.[facility] the event this information is protected by the Federal Confidentiality of Alcohol and Drug Abuse Patient Records regulations: The Federal rules restrict any use of the information to criminally investigate or prosecute any alcohol or drug abuse patient.[facility] the event this information is protected by the Federal Confidentiality of Alcohol and Drug Abuse Patient Records regulations: The Federal rules restrict any use of the information to criminally investigate or prosecute any alcohol or drug abuse patient.[facility] the event this information is protected by the Federal Confidentiality of Alcohol and Drug Abuse Patient Records regulations: The Federal rules restrict any use of the information to criminally investigate or prosecute any alcohol or drug abuse patient.[facility] the event this information is protected by the Federal Confidentiality of Alcohol and Drug Abuse Patient Records regulations: The Federal rules restrict any use of the information to criminally investigate or prosecute any alcohol or drug abuse patient.[facility] the event this information is protected by the Federal Confidentiality of Alcohol and Drug Abuse Patient Records regulations: The Federal rules restrict any use of the information to criminally investigate or prosecute any alcohol or drug abuse patient.[facility] the event this information is protected by the Federal Confidentiality of Alcohol and Drug Abuse Patient Records regulations: The Federal rules restrict any use of the information to criminally investigate or prosecute any alcohol or drug abuse patient.[facility] CenterIn the event this information is protected by the Federal Confidentiality of Alcohol and Drug Abuse Patient Records regulations: The Federal rules restrict any use of the information to criminally investigate or prosecute any alcohol or drug abuse patient.[facility] CenterIn the event this information is protected by the Federal Confidentiality of Alcohol and Drug Abuse Patient Records regulations: The Federal rules restrict any use of the information to criminally investigate or prosecute any alcohol or drug abuse patient.[facility] CenterIn the event this information is protected by the Federal Confidentiality of Alcohol and Drug Abuse Patient Records regulations: The Federal rules restrict any use of the information to criminally investigate or prosecute any alcohol or drug abuse patient.[facility] CenterIn the event this information is protected by the Federal Confidentiality of Alcohol and Drug Abuse Patient Records regulations: The Federal rules restrict any use of the information to criminally investigate or prosecute any alcohol or drug abuse patient.[facility] CenterIn the event this information is protected by the Federal Confidentiality of Alcohol and Drug Abuse Patient Records regulations: The Federal rules restrict any use of the information to criminally investigate or prosecute any alcohol or drug abuse patient.[facility] CenterIn the event this information is protected by the Federal Confidentiality of Alcohol and Drug Abuse Patient Records regulations: The Federal rules restrict any use of the information to criminally investigate or prosecute any alcohol or drug abuse patient.[facility] CenterIn the event this information is protected by the Federal Confidentiality of Alcohol and Drug Abuse Patient Records regulations: The Federal rules restrict any use of the information to criminally investigate or prosecute any alcohol or drug abuse patient.[facility] CenterIn the event this information is protected by the Federal Confidentiality of Alcohol and Drug Abuse Patient Records regulations: The Federal rules restrict any use of the information to criminally investigate or prosecute any alcohol or drug abuse patient.[facility] CenterIn the event this information is protected by the Federal Confidentiality of Alcohol and Drug Abuse Patient Records regulations: The Federal rules restrict any use of the information to criminally investigate or prosecute any alcohol or drug abuse patient.[facility] CenterIn the event this information is protected by the Federal Confidentiality of Alcohol and Drug Abuse Patient Records regulations: The Federal rules restrict any use of the information to criminally investigate or prosecute any alcohol or drug abuse patient.[facility] CenterIn the event this information is protected by the Federal Confidentiality of Alcohol and Drug Abuse Patient Records regulations: The Federal rules restrict any use of the information to criminally investigate or prosecute any alcohol or drug abuse patient.[facility] CenterIn the event this information is protected by the Federal Confidentiality of Alcohol and Drug Abuse Patient Records regulations: The Federal rules restrict any use of the information to criminally investigate or prosecute any alcohol or drug abuse patient.[facility] CenterIn the event this information is protected by the Federal Confidentiality of Alcohol and Drug Abuse Patient Records regulations: The Federal rules restrict any use of the information to criminally investigate or prosecute any alcohol or drug abuse patient.[facility] CenterIn the event this information is protected by the Federal Confidentiality of Alcohol and Drug Abuse Patient Records regulations: The Federal rules restrict any use of the information to criminally investigate or prosecute any alcohol or drug abuse patient.[facility] CenterIn the event this information is protected by the Federal Confidentiality of Alcohol and Drug Abuse Patient Records regulations: The Federal rules restrict any use of the information to criminally investigate or prosecute any alcohol or drug abuse patient.[facility] CenterIn the event this information is protected by the Federal Confidentiality of Alcohol and Drug Abuse Patient Records regulations: The Federal rules restrict any use of the information to criminally investigate or prosecute any alcohol or drug abuse patient.[facility] CenterIn the event this information is protected by the Federal Confidentiality of Alcohol and Drug Abuse Patient Records regulations: The Federal rules restrict any use of the information to criminally investigate or prosecute any alcohol or drug abuse patient.[facility] CenterIn the event this information is protected by the Federal Confidentiality of Alcohol and Drug Abuse Patient Records regulations: The Federal rules restrict any use of the information to criminally investigate or prosecute any alcohol or drug abuse patient.[facility] CenterIn the event this information is protected by the Federal Confidentiality of Alcohol and Drug Abuse Patient Records regulations: The Federal rules restrict any use of the information to criminally investigate or prosecute any alcohol or drug abuse patient.[facility] CenterIn the event this information is protected by the Federal Confidentiality of Alcohol and Drug Abuse Patient Records regulations: The Federal rules restrict any use of the information to criminally investigate or prosecute any alcohol or drug abuse patient.[facility] CenterIn the event this information is protected by the Federal Confidentiality of Alcohol and Drug Abuse Patient Records regulations: The Federal rules restrict any use of the information to criminally investigate or prosecute any alcohol or drug abuse patient.[facility] CenterIn the event this information is protected by the Federal Confidentiality of Alcohol and Drug Abuse Patient Records regulations: The Federal rules restrict any use of the information to criminally investigate or prosecute any alcohol or drug abuse patient.[facility] CenterIn the event this information is protected by the Federal Confidentiality of Alcohol and Drug Abuse Patient Records regulations: The Federal rules restrict any use of the information to criminally investigate or prosecute any alcohol or drug abuse patient.[facility] CenterIn the event this information is protected by the Federal Confidentiality of Alcohol and Drug Abuse Patient Records regulations: The Federal rules restrict any use of the information to criminally investigate or prosecute any alcohol or drug abuse patient.[facility] CenterIn the event this information is protected by the Federal Confidentiality of Alcohol and Drug Abuse Patient Records regulations: The Federal rules restrict any use of the information to criminally investigate or prosecute any alcohol or drug abuse patient.[facility] CenterIn the event this information is protected by the Federal Confidentiality of Alcohol and Drug Abuse Patient Records regulations: The Federal rules restrict any use of the information to criminally investigate or prosecute any alcohol or drug abuse patient.[facility] CenterIn the event this information is protected by the Federal Confidentiality of Alcohol and Drug Abuse Patient Records regulations: The Federal rules restrict any use of the information to criminally investigate or prosecute any alcohol or drug abuse patient.[facility] CenterIn the event this information is protected by the Federal Confidentiality of Alcohol and Drug Abuse Patient Records regulations: The Federal rules restrict any use of the information to criminally investigate or prosecute any alcohol or drug abuse patient.[facility] CenterIn the event this information is protected by the Federal Confidentiality of Alcohol and Drug Abuse Patient Records regulations: The Federal rules restrict any use of the information to criminally investigate or prosecute any alcohol or drug abuse patient.[facility] CenterIn the event this information is protected by the Federal Confidentiality of Alcohol and Drug Abuse Patient Records regulations: The Federal rules restrict any use of the information to criminally investigate or prosecute any alcohol or drug abuse patient.[facility] CenterIn the event this information is protected by the Federal Confidentiality of Alcohol and Drug Abuse Patient Records regulations: The Federal rules restrict any use of the information to criminally investigate or prosecute any alcohol or drug abuse patient.[facility] CenterIn the event this information is protected by the Federal Confidentiality of Alcohol and Drug Abuse Patient Records regulations: The Federal rules restrict any use of the information to criminally investigate or prosecute any alcohol or drug abuse patient.[facility] CenterIn the event this information is protected by the Federal Confidentiality of Alcohol and Drug Abuse Patient Records regulations: The Federal rules restrict any use of the information to criminally investigate or prosecute any alcohol or drug abuse patient.[facility] CenterIn the event this information is protected by the Federal Confidentiality of Alcohol and Drug Abuse Patient Records regulations: The Federal rules restrict any use of the information to criminally investigate or prosecute any alcohol or drug abuse patient.[facility] CenterIn the event this information is protected by the Federal Confidentiality of Alcohol and Drug Abuse Patient Records regulations: The Federal rules restrict any use of the information to criminally investigate or prosecute any alcohol or drug abuse patient.[facility] CenterIn the event this information is protected by the Federal Confidentiality of Alcohol and Drug Abuse Patient Records regulations: The Federal rules restrict any use of the information to criminally investigate or prosecute any alcohol or drug abuse patient.[facility] CenterIn the event this information is protected by the Federal Confidentiality of Alcohol and Drug Abuse Patient Records regulations: The Federal rules restrict any use of the information to criminally investigate or prosecute any alcohol or drug abuse patient.[facility] CenterIn the event this information is protected by the Federal Confidentiality of Alcohol and Drug Abuse Patient Records regulations: The Federal rules restrict any use of the information to criminally investigate or prosecute any alcohol or drug abuse patient.[facility] CenterIn the event this information is protected by the Federal Confidentiality of Alcohol and Drug Abuse Patient Records regulations: The Federal rules restrict any use of the information to criminally investigate or prosecute any alcohol or drug abuse patient.[facility] CenterIn the event this information is protected by the Federal Confidentiality of Alcohol and Drug Abuse Patient Records regulations: The Federal rules restrict any use of the information to criminally investigate or prosecute any alcohol or drug abuse patient.[facility] CenterIn the event this information is protected by the Federal Confidentiality of Alcohol and Drug Abuse Patient Records regulations: The Federal rules restrict any use of the information to criminally investigate or prosecute any alcohol or drug abuse patient.[facility] CenterIn the event this information is protected by the Federal Confidentiality of Alcohol and Drug Abuse Patient Records regulations: The Federal rules restrict any use of the information to criminally investigate or prosecute any alcohol or drug abuse patient.[facility] CenterIn the event this information is protected by the Federal Confidentiality of Alcohol and Drug Abuse Patient Records regulations: The Federal rules restrict any use of the information to criminally investigate or prosecute any alcohol or drug abuse patient.[facility] CenterIn the event this information is protected by the Federal Confidentiality of Alcohol and Drug Abuse Patient Records regulations: The Federal rules restrict any use of the information to criminally investigate or prosecute any alcohol or drug abuse patient.[facility] CenterIn the event this information is protected by the Federal Confidentiality of Alcohol and Drug Abuse Patient Records regulations: The Federal rules restrict any use of the information to criminally investigate or prosecute any alcohol or drug abuse patient.[facility] the event this information is protected by the Federal Confidentiality of Alcohol and Drug Abuse Patient Records regulations: The Federal rules restrict any use of the information to criminally investigate or prosecute any alcohol or drug abuse patient.[facility] CenterIn the event this information is protected by the Federal Confidentiality of Alcohol and Drug Abuse Patient Records regulations: The Federal rules restrict any use of the information to criminally investigate or prosecute any alcohol or drug abuse patient.[facility] CenterIn the event this information is protected by the Federal Confidentiality of Alcohol and Drug Abuse Patient Records regulations: The Federal rules restrict any use of the information to criminally investigate or prosecute any alcohol or drug abuse patient.[facility]In the event this information is protected by the Federal Confidentiality of Alcohol and Drug Abuse Patient Records regulations: The Federal rules restrict any use of the information to criminally investigate or prosecute any alcohol or drug abuse patient.[facility] CenterIn the event this information is protected by the Federal Confidentiality of Alcohol and Drug Abuse Patient Records regulations: The Federal rules restrict any use of the information to criminally investigate or prosecute any alcohol or drug abuse patient.[facility] CenterIn the event this information is protected by the Federal Confidentiality of Alcohol and Drug Abuse Patient Records regulations: The Federal rules restrict any use of the information to criminally investigate or prosecute any alcohol or drug abuse patient.[facility] CenterIn the event this information is protected by the Federal Confidentiality of Alcohol and Drug Abuse Patient Records regulations: The Federal rules restrict any use of the information to criminally investigate or prosecute any alcohol or drug abuse patient.[facility] CenterIn the event this information is protected by the Federal Confidentiality of Alcohol and Drug Abuse Patient Records regulations: The Federal rules restrict any use of the information to criminally investigate or prosecute any alcohol or drug abuse patient.[facility] CenterIn the event this information is protected by the Federal Confidentiality of Alcohol and Drug Abuse Patient Records regulations: The Federal rules restrict any use of the information to criminally investigate or prosecute any alcohol or drug abuse patient.[facility] CenterIn the event this information is protected by the Federal Confidentiality of Alcohol and Drug Abuse Patient Records regulations: The Federal rules restrict any use of the information to criminally investigate or prosecute any alcohol or drug abuse patient.[facility] CenterIn the event this information is protected by the Federal Confidentiality of Alcohol and Drug Abuse Patient Records regulations: The Federal rules restrict any use of the information to criminally investigate or prosecute any alcohol or drug abuse patient.[facility] CenterIn the event this information is protected by the Federal Confidentiality of Alcohol and Drug Abuse Patient Records regulations: The Federal rules restrict any use of the information to criminally investigate or prosecute any alcohol or drug abuse patient.[facility] CenterIn the event this information is protected by the Federal Confidentiality of Alcohol and Drug Abuse Patient Records regulations: The Federal rules restrict any use of the information to criminally investigate or prosecute any alcohol or drug abuse patient.[facility]In the event this information is protected by the Federal Confidentiality of Alcohol and Drug Abuse Patient Records regulations: The Federal rules restrict any use of the information to criminally investigate or prosecute any alcohol or drug abuse patient.[facility] CenterIn the event this information is protected by the Federal Confidentiality of Alcohol and Drug Abuse Patient Records regulations: The Federal rules restrict any use of the information to criminally investigate or prosecute any alcohol or drug abuse patient.[facility] CenterIn the event this information is protected by the Federal Confidentiality of Alcohol and Drug Abuse Patient Records regulations: The Federal rules restrict any use of the information to criminally investigate or prosecute any alcohol or drug abuse patient.[facility] CenterIn the event this information is protected by the Federal Confidentiality of Alcohol and Drug Abuse Patient Records regulations: The Federal rules restrict any use of the information to criminally investigate or prosecute any alcohol or drug abuse patient.[facility] CenterIn the event this information is protected by the Federal Confidentiality of Alcohol and Drug Abuse Patient Records regulations: The Federal rules restrict any use of the information to criminally investigate or prosecute any alcohol or drug abuse patient.[facility] CenterIn the event this information is protected by the Federal Confidentiality of Alcohol and Drug Abuse Patient Records regulations: The Federal rules restrict any use of the information to criminally investigate or prosecute any alcohol or drug abuse patient.[facility] CenterIn the event this information is protected by the Federal Confidentiality of Alcohol and Drug Abuse Patient Records regulations: The Federal rules restrict any use of the information to criminally investigate or prosecute any alcohol or drug abuse patient.[facility] CenterIn the event this information is protected by the Federal Confidentiality of Alcohol and Drug Abuse Patient Records regulations: The Federal rules restrict any use of the information to criminally investigate or prosecute any alcohol or drug abuse patient.[facility] CenterIn the event this information is protected by the Federal Confidentiality of Alcohol and Drug Abuse Patient Records regulations: The Federal rules restrict any use of the information to criminally investigate or prosecute any alcohol or drug abuse patient.[facility] CenterIn the event this information is protected by the Federal Confidentiality of Alcohol and Drug Abuse Patient Records regulations: The Federal rules restrict any use of the information to criminally investigate or prosecute any alcohol or drug abuse patient.[facility] CenterIn the event this information is protected by the Federal Confidentiality of Alcohol and Drug Abuse Patient Records regulations: The Federal rules restrict any use of the information to criminally investigate or prosecute any alcohol or drug abuse patient.[facility] CenterIn the event this information is protected by the Federal Confidentiality of Alcohol and Drug Abuse Patient Records regulations: The Federal rules restrict any use of the information to criminally investigate or prosecute any alcohol or drug abuse patient.[facility] Care Teams (unrecognized sec tion and content) Wound Care Coordinator Relationship Specialty Start Date End Date Wilson Wharton APRN.[facility] [address] [place], [place] [id number] PCP - General Family Practice 12/29/20 Wound Care Coordinator Relationship Specialty Start Date End Date Wilson Wharton APRN.[facility] [address] [place] [address] PCP - General Family Practice 12/29/20 Wound Care Coordinator Relationship Specialty Start Date End Date Wilson Wharton APRN.[address] [place] [address] PCP - General Family Practice 12/29/20 Wound Care Coordinator Relationship Specialty Start Date End Date Wilson Wharton, [employer].[address] [place] [address] PCP - General Family Practice 12/29/20 Wound Care Coordinator Relationship Specialty Start Date End Date Wilson Wharton, [employer].[address] [place] [address] PCP - General Family Practice 12/29/20 Wound Care Coordinator Relationship Specialty Start Date End Date Wilson Wharton, [employer].[address] [place] [address] PCP - General Family Practice 12/29/20 Wound Care Coordinator Relationship Specialty Start Date End Date Wilson Wharton, [employer].[address] [place] [address] PCP - General Family Practice 12/29/20 Wound Care Coordinator Relationship Specialty Start Date End Date Wilson Wharton, [employer].[address] [place] [address] PCP - General Family Practice 12/29/20 Wound Care Coordinator Relationship Specialty Start Date End Date Wilson Wharton, [employer].[address] [place] [address] PCP - General Family Practice 12/29/20 Wound Care Coordinator Relationship Specialty Start Date End Date Wilson Wharton, [employer].[address] [place] [address] PCP - General Family Practice 12/29/20 Wound Care Coordinator Relationship Specialty Start Date End Date Wilson [place], [employer].[address] [place] [address] PCP - General Family Medicine 12/29/20 Wound Care Coordinator Relationship Specialty Start Date End Date Wilson Wharton APRN.[address] [place], [place] [id number] PCP - General Family Medicine 12/29/20 Wound Care Coordinator Relationship Specialty Start Date End Date Wilson Wharton APRN.[address] [place] [address] PCP - General Family Medicine 12/29/20 Wound Care Coordinator Relationship Specialty Start Date End Date Wilson Wharton APRN.[address] [place] [address] PCP - General Family Medicine 12/29/20 Wound Care Coordinator Relationship Specialty Start Date End Date Wilson Wharton APRN.[address] [place] [address] PCP - General Family Medicine 12/29/20 Wound Care Coordinator Relationship Specialty Start Date End Date Wilson Wharton APRN.[address] [address] PCP - General Internal Medicine 11/20/22 Wound Care Coordinator Relationship Specialty Start Date End Date Wilson Wharton APRN.[address] [address] PCP - General Internal Medicine 11/20/22 Wound Care Coordinator Relationship Specialty Start Date End Date Wilson Wharton APRN.[address] [address] PCP - General Internal Medicine 11/20/22 Wound Care Coordinator Relationship Specialty Start Date End Date Wilson Wharton APRN.[address] [address] PCP - General Internal Medicine 11/20/22 Wound Care Coordinator Relationship Specialty Start Date End Date Wilson Wharton APRN.[address] [address] PCP - General Internal Medicine 11/20/22 Wound Care Coordinator Relationship Specialty Start Date End Date Wilson Wharton APRN.BOOM MASTER [address] [place] [address] PCP - General Internal Medicine 11/20/22 Wound Care Coordinator Relationship Specialty Start Date End Date Wilson Wharton APRN.BOOM MASTER [address] [place] [address] [place] [address] PCP - General Family Medicine 12/29/20 11/19/22 Wilson Wharton APRN.BOOM MASTER [address] [place] [address] PCP - General Internal Medicine 11/20/22 Wound Care Coordinator Relationship Specialty Start Date End Date Wilson Wharton APRN.BOOM MASTER [address] [place] [address] PCP - General Internal Medicine 11/20/22 Wound Care Coordinator Relationship Specialty Start Date End Date Wilson Wharton APRN.BOOM MASTER [address] [place] [address] PCP - General Internal Medicine 11/20/22 Wound Care Coordinator Relationship Specialty Start Date End Date Roxy Mendes, [place] [address] Genetic Counselor Genetics 10/18/23 Wound Care Coordinator Relationship Specialty Start Date End Date Wilson Wharton APRN.BOOM MASTER [address] [place] [address] PCP - General Internal Medicine 11/20/22 Milind Bolaños APRN.BOOM [place] [address] Component Engineer 11/05/23 Wound Care Coordinator Relationship Specialty Start Date End Date Wilson Wharton APRN.BOOM MASTER [address] [place] [address] PCP - General Internal Medicine 11/20/22 Milind Bolaños, SECTIONAL BELT MOLD ASSEMBLER.BOOM MASTER [address] [place], [place] [address] Component Engineer 11/05/23 Wound Care Coordinator Relationship Specialty Start Date End Date Wilson Wharton SECTIONAL BELT MOLD ASSEMBLER.BOOM MASTER [address] [place], [place] 904191 PCP - General Internal Medicine 11/20/22 Milind Bolaños, SECTIONAL BELT MOLD ASSEMBLER.BOOM MASTER [address] [place] [address] Component Engineer 11/05/23 Wound Care Coordinator Relationship Specialty Start Date End Date Wilson Wharton SECTIONAL BELT MOLD ASSEMBLER.BOOM MASTER [address] [place] [address] PCP - General Internal Medicine 11/20/22 Milind Bolaños, SECTIONAL BELT MOLD ASSEMBLER.BOOM MASTER [address] [place] [address] Component Engineer 11/05/23 Wound Care Coordinator Relationship Specialty Start Date End Date Wilson Wharton SECTIONAL BELT MOLD ASSEMBLER.BOOM MASTER [address] [place], [place] [id number] PCP - General Internal Medicine 11/20/22 Milind Bolaños, SECTIONAL BELT MOLD ASSEMBLER.BOOM MASTER [address] [place], [place] [id number] Component Engineer 11/05/23 Wound Care Coordinator Relationship Specialty Start Date End Date Wilson Wharton APRN.BOOM MASTER [address] [place] [address] [phone] PCP - General Internal Medicine 11/20/22 Milind Bolaños, SECTIONAL BELT MOLD ASSEMBLER.BOOM MASTER [address] [place] [address] Component Engineer 11/05/23 Wound Care Coordinator Relationship Specialty Start Date End Date Wilson Wharton APRN.BOOM MASTER [address] [place] [address] [phone] PCP - General Internal Medicine 11/20/22 Milind Bolaños, SECTIONAL BELT MOLD ASSEMBLER.BOOM MASTER [address] [place] [address] Component Engineer 11/05/23 Wound Care Coordinator Relationship Specialty Start Date End Date Wilson Wharton APRN.BOOM MASTER [address] [place] [address] PCP - General Internal Medicine 11/20/22 Milind Bolaños, SECTIONAL BELT MOLD ASSEMBLER.BOOM MASTER [address] [place] [address] Component Engineer 11/05/23 Wound Care Coordinator Relationship Specialty Start Date End Date Wilson Wharton APRN.BOOM MASTER [address] [place] [address] [phone] PCP - General Internal Medicine 11/20/22 Milind Bolaños, SECTIONAL BELT MOLD ASSEMBLER.BOOM MASTER [address] [place], [place] [id number] Component Engineer 11/05/23 Wound Care Coordinator Relationship Specialty Start Date End Date Wilson Wharton APRN.BOOM MASTER [address] [place] [address] [phone] PCP - General Internal Medicine 11/20/22 Milind Bolaños, SECTIONAL BELT MOLD ASSEMBLER.BOOM MASTER [address] [address] Component Engineer 11/05/23 Wound Care Coordinator Relationship Specialty Start Date End Date Wilson Wharton APRN.BOOM MASTER [address] [place] [address] [phone] PCP - General Internal Medicine 11/20/22 Milind Bolaños, SECTIONAL BELT MOLD ASSEMBLER.BOOM MASTER [address] [place] [address] Component Engineer 11/05/23 Wound Care Coordinator Relationship Specialty Start Date End Date Wilson Wharton APRN.BOOM MASTER [address] [place] [address] PCP - General Internal Medicine 11/20/22 Milind Bolaños, SECTIONAL BELT MOLD ASSEMBLER.BOOM MASTER [address] [place] [address] Component Engineer 11/05/23 Wound Care Coordinator Relationship Specialty Start Date End Date Wilson Wharton APRN.BOOM MASTER [address] [place] [address] [phone] PCP - General Internal Medicine 11/20/22 Milind Bolaños, SECTIONAL BELT MOLD ASSEMBLER.BOOM MASTER [address] [place], [place] [address] Component Engineer 11/05/23 Wound Care Coordinator Relationship Specialty Start Date End Date Wilson Wharton APRN.BOOM MASTER [address] [place] [address] PCP - General Internal Medicine 11/20/22 Milind Bolaños APRN.BOOM MASTER [address] [place] [address] Component Engineer 11/05/23 Wound Care Coordinator Relationship Specialty Start Date End Date Wilson Wharton APRN.BOOM MASTER [address] [place] [address] PCP - General Internal Medicine 11/20/22 Milind Bolaños, RODOLFO.BOOM MASTER [address] [place] [address] Component Engineer 11/05/23 Wound Care Coordinator Relationship Specialty Start Date End Date Wilson Wharton APRN.BOOM MASTER [address] [place] [address] PCP - General Internal Medicine 11/20/22 Milind Bolaños, RODOLFO.BOOM MASTER [address] [place] [address] Component Engineer 11/05/23 Wound Care Coordinator Relationship Specialty Start Date End Date Wilson Wharton APRN.BOOM MASTER [address] [place] [address] PCP - General Internal Medicine 11/20/22 Milind Bolaños, RODOLFO.BOOM MASTER [address] [place] [address] Component Engineer 11/05/23 Wound Care Coordinator Relationship Specialty Start Date End Date Wilson Wharton APRN.BOOM MASTER [address] [place] [address] PCP - General Internal Medicine 11/20/22 Milind Bolaños, SECTIONAL BELT MOLD ASSEMBLER.BOOM MASTER [address] [place] [address] Component Engineer 11/05/23 Wound Care Coordinator Relationship Specialty Start Date End Date Wilson Wharton APRN.BOOM MASTER [address] [place] [address] PCP - General Internal Medicine 11/20/22 Milind Bolaños, SECTIONAL BELT MOLD ASSEMBLER.BOOM MASTER [address] [place] [address] Component Engineer 11/05/23 Wound Care Coordinator Relationship Specialty Start Date End Date Wilson Wharton APRN.BOOM MASTER [address] [place] [address] PCP - General Internal Medicine 11/20/22 Milind Bolaños, SECTIONAL BELT MOLD ASSEMBLER.BOOM MASTER [address] [place] [address] Component Engineer 11/05/23 Wound Care Coordinator Relationship Specialty Start Date End Date Wilson Wharton APRN.BOOM MASTER [address] [place] [address] PCP - General Internal Medicine 11/20/22 Milind Bolaños, SECTIONAL BELT MOLD ASSEMBLER.BOOM MASTER [address] [place] [address] Component Engineer 11/05/23 Wound Care Coordinator Relationship Specialty Start Date End Date Wilson Wharton APRN.BOOM MASTER [address] [place] [address] PCP - General Internal Medicine 11/20/22 Milind Bolaños, SECTIONAL BELT MOLD ASSEMBLER.BOOM MASTER [address] [place] [address] Component Engineer 11/05/23 Wound Care Coordinator Relationship Specialty Start Date End Date Wilson Wharton APRN.BOOM MASTER [address] [place] [address] PCP - General Internal Medicine 11/20/22 Milind Bolaños, SECTIONAL BELT MOLD ASSEMBLER.BOOM MASTER [address] [place] [address] Component Engineer 11/05/23 Wound Care Coordinator Relationship Specialty Start Date End Date Wilson Wharton APRN.BOOM MASTER [address] [place] [address] PCP - General Internal Medicine 11/20/22 Milind Bolaños, SECTIONAL BELT MOLD ASSEMBLER.BOOM MASTER [address] [place] [address] Component Engineer 11/05/23 Wound Care Coordinator Relationship Specialty Start Date End Date Wilson Wharton APRN.BOOM MASTER [address] [place] [address] PCP - General Internal Medicine 11/20/22 Milind Bolaños, SECTIONAL BELT MOLD ASSEMBLER.BOOM MASTER [address] [place] [address] Component Engineer 11/05/23 Wound Care Coordinator Relationship Specialty Start Date End Date Wilson Wharton SECTIONAL BELT MOLD ASSEMBLER.BOOM MASTER [address] [place] [address] PCP - General Internal Medicine 11/20/22 Milind Bolaños, SECTIONAL BELT MOLD ASSEMBLER.BOOM MASTER [address] [place] [address] Component Engineer 11/05/23 Wound Care Coordinator Relationship Specialty Start Date End Date Wilson Wharton SECTIONAL BELT MOLD ASSEMBLER.BOOM MASTER [address] [place] [address] PCP - General Internal Medicine 11/20/22 Milind Bolaños, SECTIONAL BELT MOLD ASSEMBLER.BOOM MASTER [address] [place] [address] Component Engineer 11/05/23 Wound Care Coordinator Relationship Specialty Start Date End Date Wilson Wharton SECTIONAL BELT MOLD ASSEMBLER.BOOM MASTER [address] [facility] [address] PCP - General Internal Medicine 11/20/22 Milind Bolaños, SECTIONAL BELT MOLD ASSEMBLER.BOOM MASTER [address] [place] [address] Component Engineer 11/05/23 Wound Care Coordinator Relationship Specialty Start Date End Date Wilson Wharton SECTIONAL BELT MOLD ASSEMBLER.BOOM MASTER [address] [place] [address] PCP - General Internal Medicine 11/20/22 Milind Bolaños, SECTIONAL BELT MOLD ASSEMBLER.BOOM MASTER [address] [place] [address] Component Engineer 11/05/23 Wound Care Coordinator Relationship Specialty Start Date End Date Wilson Wharton, SECTIONAL BELT MOLD ASSEMBLER.BOOM MASTER [address] [place] [address] PCP - General Internal Medicine 11/20/22 Milind Bolaños, SECTIONAL BELT MOLD ASSEMBLER.BOOM MASTER [address] [place] [address] Component Engineer 11/05/23 Wound Care Coordinator Relationship Specialty Start Date End Date Wilson Wharton, SECTIONAL BELT MOLD ASSEMBLER.BOOM MASTER [address] [place] [address] PCP - General Internal Medicine 11/20/22 Milind Bolaños, SECTIONAL BELT MOLD ASSEMBLER.BOOM MASTER [address] [place] [address] Component Engineer 11/05/23 Wound Care Coordinator Relationship Specialty Start Date End Date Wilson Wharton, SECTIONAL BELT MOLD ASSEMBLER.BOOM MASTER [address] [place] [address] PCP - General Internal Medicine 11/20/22 Milind Bolaños, SECTIONAL BELT MOLD ASSEMBLER.BOOM MASTER [address] [place] [address] Component Engineer 11/05/23 Wound Care Coordinator Relationship Specialty Start Date End Date Wilson Wharton SECTIONAL BELT MOLD ASSEMBLER.BOOM MASTER [address] [place] [address] PCP - General Internal Medicine 11/20/22 Milind Bolaños, SECTIONAL BELT MOLD ASSEMBLER.BOOM MASTER [address] [place] [address] Component Engineer 11/05/23 Wound Care Coordinator Relationship Specialty Start Date End Date Wilson Wharton, SECTIONAL BELT MOLD ASSEMBLER.BOOM MASTER [address] [place] [address] PCP - General Internal Medicine 11/20/22 Milind Bolaños, SECTIONAL BELT MOLD ASSEMBLER.BOOM MASTER [address] [place] [address] Component Engineer 11/05/23 Wound Care Coordinator Relationship Specialty Start Date End Date Wilson Wharton, SECTIONAL BELT MOLD ASSEMBLER.BOOM MASTER [address] [place] [address] PCP - General Internal Medicine 11/20/22 Milind Bolaños, SECTIONAL BELT MOLD ASSEMBLER.BOOM MASTER [address] [place] [address] Component Engineer 11/05/23 Wound Care Coordinator Relationship Specialty Start Date End Date Wilson Wharton SECTIONAL BELT MOLD ASSEMBLER.BOOM MASTER [address] [place] [address] PCP - General Internal Medicine 11/20/22 Milind Bolaños, SECTIONAL BELT MOLD ASSEMBLER.BOOM MASTER [address] [place] [address] Component Engineer 11/05/23 Wound Care Coordinator Relationship Specialty Start Date End Date Wilson Wharton SECTIONAL BELT MOLD ASSEMBLER.BOOM MASTER [address] [place] [address] PCP - General Internal Medicine 11/20/22 Milind Bolaños, SECTIONAL BELT MOLD ASSEMBLER.BOOM MASTER [address] [place], [place] [address] Component Engineer 11/05/23 Wound Care Coordinator Relationship Specialty Start Date End Date Wilson Wharton, SECTIONAL BELT MOLD ASSEMBLER.BOOM MASTER [address] [place], [place] [address] PCP - General Internal Medicine 11/20/22 Milind Bolaños, SECTIONAL BELT MOLD ASSEMBLER.BOOM MASTER [address] [place], [place] [address] Component Engineer 11/05/23 Wound Care Coordinator Relationship Specialty Start Date End Date Wilson Wharton, SECTIONAL BELT MOLD ASSEMBLER.BOOM MASTER [address] [place], [place] [address] PCP - General Internal Medicine 11/20/22 Milind Bolaños, SECTIONAL BELT MOLD ASSEMBLER.BOOM MASTER [address] [place], [place] [address] Component Engineer 11/05/23 Reason for Visit (unrecogniz ed section and content) Reason Comments Recheck Reason Comments Hypertension Reason Comments Recheck is feeling better si nce holding lisinopril Reason Comments Orders Holter Monitor Reason Comments Results Reason Comments Rash Reason Onset Date Comments Refill Request 03/05/2022 Reason Onset Date Comments Refill Request 03/19/2022 Reason Onset Date Comments Refill Request 05/17/2022 Reason Comments Returning Patient's Call Reason Comments Refill Request Reason Comments Recheck Sick since Sunday an d dizzy. And unable to drive. Was on a beta ravi (metoprolol) until the and was stopped and felt heart racing and chest pain. And is now having high anxiety and restless legs. Reason Onset Date Comments Refill Request 07/25/2022 Reason Comments Medication Follow-up Reason Comments Fatigue Reason Comments Insurance Authorization Reason Comments Insurance Authorization Reason Comments Pelvic Pain Specialty Diagnoses / Procedures Referred By Contac t Referred To Contact Gynecology Diagnoses Pelvic pain Uterine leiomyoma, unspecified location Procedures CONSULT TO GYNECOLOGY OFFICE/OUTPATIENT [facility] 60 MINUTES Wilson Wharton APRN.BOOM MASTER [address] [place] [address] Referral ID Status Reason Start Date Expiration Date V isits Requested Visits Authorized [id number] Closed PCP Requested Referral Auto-Generated Referral 10/30/2023 10/29/2024 1 1 Reason Comments Radiology US Specialty Diagnoses / Procedures Referred By Contac t Referred To Contact US IMAGING Diagnoses Pelvic pain History of kidney stones Procedures US KIDNEY/BLADDER US RETROPERITONEAL REAL TIME W/IMAGE COMPLETE Milind Bolaños APRN.BOOM MASTER [address] [place] [id number] [place] [address] Referral ID Status Reason Start Date Expiration Date V isits Requested Visits Authorized [id number] Closed Auto-Generate d Referral 11/05/2023 12/04/2024 1 1 Reason Comments Consult Patient states that a month ago she had flank pain and hematuria and went to the ER on 11/03/23. Patient had CT and US completed and was told she had kidney stone. Patient states that will occasionally have the flank pain but no other side effects currently. Denies any pain/ burning with urination. Patient does get up 3 times at night to urinate on a regular basis. Specialty Diagnoses / Procedures Referred By Contac t Referred To Contact Urology Diagnoses Kidney stone Hematuria, unspecified type Procedures CONSULT TO UROLOGY OFFICE/OUTPATIENT [facility] 60 MINUTES Wilson Wharton APRN.BOOM MASTER [address] [place] [address] Referral ID Status Reason Start Date Expiration Date V isits Requested Visits Authorized [id number] Closed PCP Requested Referral 11/07/2023 11/06/2024 1 1 Reason Comments Weight Problem Reason Onset Date Comments Refill Request 02/15/2024 Reason Comments Follow Up follow up- new medic ation metformin Reason Comments Weight Problem follow up Reason Onset Date Comments Refill Request 06/16/2024 Reason Comments Follow Up Reason Comments Abdominal Pain Reason Comments Abdominal Pain started yesterday ac hes with some cramping. 1 episode of diarrhea. Reason Comments Results Specialty Diagnoses / Procedures Referred By Danyell lopes Referred To Contact MR IMAGING Diagnoses Dizzy Other fatigue Seizure disorder (HCC) Migraine without aura, not intractable, with status migrainosus Procedures MRI BRAIN WO/W IVCON MRI BRAIN BRAIN STEM W/O W/CONTRAST MATERIAL Wilson Wharton, SECTIONAL BELT MOLD ASSEMBLER.BOOM MASTER [address] [place] [address] [place] [address] Referral ID Status Reason Start Date Expiration Date V isits Requested Visits Authorized [id number] Closed Auto-Generate d Referral 07/29/2024 09/23/2024 1 1 Reason Comments Radiology NM Specialty Diagnoses / Procedures Referred By Danyell lopes Referred To Contact MOLECULAR & FUNCTIONAL IMAGING Diagnoses Right upper quadrant abdominal pain Procedures NM HEPATOBILIARY W EF AND/OR RX HEPATOBIL [facility] GB W/PHARMA INTERVENJ Wilson Wharton, SECTIONAL BELT MOLD ASSEMBLER.BOOM MASTER [address] [place] [address] Molecular & Functional Imaging [address] [place] [address] Referral ID Status Reason Start Date Expiration Date V isits Requested Visits Authorized [id number] Closed Auto-Generate d Referral 08/05/2024 09/23/2024 1 1 Reason Onset Date Comments Refill Request 09/07/2024 Reason Comments Liver Disease Fatty Liver Disease. Pt also states she has also passed whole pills in her stool. Occasional abdominal pain Specialty Diagnoses / Procedures Referred By Danyell lopes Referred To Contact Gastroenterology Diagnoses Nonalcoholic fatty liver disease without nonalcoholic steatohepatitis (FREY) Right upper quadrant abdominal pain Procedures CONSULT TO GASTROENTEROLOGY OFFICE/OUTPATIENT NEW HIGH MDM 60 MINUTES Wilson Wharton, SECTIONAL BELT MOLD ASSEMBLER.BOOM MASTER [address] [place] [address] Referral ID Status Reason Start Date Expiration Date V isits Requested Visits Authorized [id number] Closed PCP Requested Referral 08/11/2024 08/11/2025 1 1 Reason Comments Recheck Reason Comments Patient Update Bariatric Benefits I nvestigation Reason Comments Bariatric Information Packet Reason Comments New Patient Reason Comments Established Patient Reason Comments Bariatric Psychology Evaluation Reason Comments Form Stripper - Other Modafinil SOUTH Reason Comments New -pt states she is he re for a surgical clearance for bariatric surgery -pt states her breathing is good -pt states she tested years ago for INDIGO and everything was fine -[facility] (surgery) -pt states she is tired a lot during the day Reason Comments Follow Up Weight check Reason Comments F/U 3 Month Reason Onset Date Comments Refill Request 03/04/2025 Reason Comments Hives Hives all over x 3 d ays. States she had a tick imbedded in left groin x 2 weeks. Taking Benadryl, Antihistamines, and Oatmeal baths with no relief. Reason Comments Bariatric Psychology Follow Up Reason Comments Anxiety Depression Reason Comments Appointment Called to schedule n ew patient appointment, lvm Reason Comments Patient Update Consenting at Month 5 will need VV w/RD April 24 Reason Comments Medical Clearance Reason Comments Patient Education Reason Comments Establish Care INFORMATION SOURCE (unrecogn ized section and content) DATE CREATED AUTHOR 01/27/2022 [facility] DATE CREATED AUTHOR AUTHOR'S ORGANIZ ATION 03/16/2023 [facility] DATE CREATED AUTHOR AUTHOR'S ORGANIZ ATION 06/12/2024 [facility] DATE CREATED AUTHOR AUTHOR'S ORGANIZ ATION 03/21/2025 [facility] DATE CREATED AUTHOR AUTHOR'S ORGANIZ ATION 04/18/2025 [facility] DATE CREATED AUTHOR AUTHOR'S ORGANIZ ATION 08/02/[address] [facility] DATE CREATED AUTHOR AUTHOR'S ORGANIZ ATION 08/04/2025 [facility] FOR RECORDS PERTAINING TO PATIENTS WHO ARE OR HAVE BEEN ENROLLED IN A CHEMICAL DEPENDENCY/SUBSTANCEABUSE PROGRAM, SOME INFORMATION MAY BE OMITTED. This clinical summary was aggregated from multiple sources. Caution should be exercised in using it in the provision of clinical care. This summary normalizes information from multiple sources, and as a consequence, information in this document may materially change the coding, format and clinical context of patient data. In addition, data may be omitted in some cases. CLINICAL DECISIONS SHOULD BE BASED ON THE PRIMARY CLINICAL RECORDS. [facility] [employer] [facility]. provides no warranty or guarantee of the accuracy or completeness of information in this document.
[2025-09-21 16:08] LABS: Potato, White 9.18 kU/L (Class IV)
== END | disposition home or self-care (01) ==
LOC: LAB 08:35
PROVIDERS: PCP Clinical Nurse Specialist Adult Health
DX: T78.40XA Allergy, unspecified, initial encounter (principal)
CPT/HCPCS: 36415; 86003